=== PATIENT | female | born 1960 | race Caucasian/White ===

== ENCOUNTER → 2019-08-01 09:41 | Outpatient (BNVA) | payer MEDICARE, MEDICAID, SELFPAY | PROVIDERS: Family Provider Family Medicine; PCP Family Medicine; Visit Provider Nurse Practitioner | DX: G89.29 Other chronic pain (principal); M54.5 Low back pain; M79.604 Pain in right leg; M79.605 Pain in left leg; M62.838 Other muscle spasm; Z79.891 Long term (current) use of opiate analgesic | CPT/HCPCS: 99214 ==

== ENCOUNTER 2019-08-27 11:36 | Outpatient (CLI) | payer MEDICARE, MEDICAID, SELFPAY ==
[2019-08-27 13:19] LABS: Glucose 129 mg/dL (65-115)
[2019-08-28 14:27] LABS: C-Peptide 0.65 ng/mL (0.80-3.85)
== END 2019-08-27 11:37 | disposition home or self-care (01) ==
LOC: LAB 11:46
PROVIDERS: Family Provider Family Medicine; PCP Family Medicine; Visit Provider Nurse Practitioner Family
DX: E10.65 Type 1 diabetes mellitus with hyperglycemia (principal)
CPT/HCPCS: 36415; 82947; 84681

== ENCOUNTER → 2019-08-30 13:24 | Outpatient (BNVA) | payer MEDICARE, MEDICAID, SELFPAY | PROVIDERS: Family Provider Family Medicine; PCP Family Medicine; Visit Provider Family Medicine | DX: E78.2 Mixed hyperlipidemia (principal); E11.65 Type 2 diabetes mellitus with hyperglycemia; Z79.4 Long term (current) use of insulin; I10 Essential (primary) hypertension; E78.5 Hyperlipidemia, unspecified; F32.9 Major depressive disorder, single episode, unspecified; F41.9 Anxiety disorder, unspecified; M62.838 Other muscle spasm; J30.2 Other seasonal allergic rhinitis; G25.81 Restless legs syndrome; Z79.899 Other long term (current) drug therapy; E61.2 Magnesium deficiency; N39.0 Urinary tract infection, site not specified; R31.9 Hematuria, unspecified; F32.1 Major depressive disorder, single episode, moderate; R19.7 Diarrhea, unspecified; Z76.0 Encounter for issue of repeat prescription | CPT/HCPCS: 80053; 80061; 81001; 83036; 84443; 85025; 87077; 87086; 87186 ==

== ENCOUNTER → 2019-09-25 10:02 | Outpatient (BNVA) | payer MEDICARE, MEDICAID, SELFPAY | PROVIDERS: Family Provider Family Medicine; PCP Family Medicine; Visit Provider Anesthesiology | DX: G89.29 Other chronic pain (principal); M43.16 Spondylolisthesis, lumbar region; M79.651 Pain in right thigh; M79.652 Pain in left thigh; M62.838 Other muscle spasm; Z79.891 Long term (current) use of opiate analgesic | CPT/HCPCS: 99213 ==

== ENCOUNTER 2019-12-13 11:37 | Observation (INO) | payer MEDICARE, MEDICAID, SELFPAY ==
[2019-12-13] VITALS (11 sets, daily range): BP systolic 130–187; BP diastolic 74–98; PULSE 76–91; RESP 14–20; TEMP 36.7–36.9; O2SAT 94–97; BMI 65.5
--- NOTE | 2019-12-13 12:07 | ED_ITS ---
Documented by User: RAPHAEL Golden 12/13/19 16:04 HPI - Chest Pain General: Chief Complaint: Chest Pain Stated Complaint: CHEST PAIN Time Seen by Provider: 12/13/19 12:07 Source: patient Mode of arrival: ambulatory Limitations: no limitations History of Present Illness: HPI narrative: Patient presents today with complaints of chest pain for 3 days. Patient was being seen by her primary care and and had made complaints of chest pain. Patient was then transported to the emergency room for further evaluation. Patient had tried her nitro spray at home but it was ineffective. After receiving 1 nitro tablet at the medical office and 2 in route to the ER patient states that her pain is relatively gone. Patient describes it as 2 out of 10 on a pain scale. Patient reports that she has diabetes coronary artery disease with 6 previous stents. Patient states that she has to have CABG if she is going to have any further intervention with her heart disease. Patient appears well. Patient appears in no pain at rest. Review of Systems General: Reports: 10 or more systems reviewed and unremarkable except in HPI and below Card: Reports: chest pain [facility] ED PFSH: Medical History (Updated 12/13/19 @ 15:36 by RAPHAEL Golden) Chronic low back pain Long-term use of high-risk medication Opioid contract exists Surgical History History of partial surgical removal of colon Hx of total knee replacement S/P appendectomy S/P cholecystectomy S/P hysterectomy S/P tonsillectomy and adenoidectomy Family History Grandfather Cancer Family/Other Myocardial infarct MOTHER, FATHER, BROTHER, SISTER Hypertension Diabetes Mother CAD (coronary artery disease) Father CAD (coronary artery disease) Sister CAD (coronary artery disease) Brother CAD (coronary artery disease) Other Stroke Social History Smoking and tobacco status: never smoked Alcohol intake: never Lives independently: Yes Marital status: Physical Exam Const: COMMON NORMALS: no acute distress and patient oriented x3 GENERAL APPEARANCE: cooperative HENMT: COMMON NORMALS: normocephalic and Normal external nose present HEAD & SCALP: normal to inspection and normocephalic NOSE: Normal external nose present MOUTH: Normal oral and palatal mucosa present THROAT: posterior oropharynx normal Eye: GENERAL EYE: appearance normal, both eyes and all related structures Neck/C-Spine: COMMON NORMALS: full ROM Chest: COMMONS NORMALS: normal inspection of the chest Resp: COMMON NORMALS: normal respiratory effort EFFORT & INSPECTION: Yes able to speak in complete sentences Cardio: COMMON NORMALS: regular rate and regular rhythm RATE: regular rate RHYTHM: regular rhythm GI: COMMON NORMALS: non-tender Back/Pelvis: COMMON NORMALS: thoracic and lumbar spine normal to inspection Extremity: COMMON NORMALS: normal to inspection Neuro: COMMON NORMALS: patient oriented x3 and moves all extremities Psych: COMMON NORMALS: mental status grossly normal and cooperative Skin: COMMON NORMALS: no rashes or lesions noted GENERAL SKIN EXAM: no rashes or lesions noted Course ED course: 1350 reviewed first troponin level with patient and elevated d- dimer. Report that were going to go ahead and get the second troponin but while waiting for those results we are going to add a CT scan for PE protocol due to elevation in the d-dimer. Patient reports understanding. Patient pain-free. Wjw 1525, patient came back with bilateral abnormal filling defects in both lungs suggestive of a thrombo-embolism. Reviewed with Dr. Braun who agreed to evaluate the patient and discussed with the hospitalist further care. wjw Vital Signs: Vital signs: Vital Signs Temperature 98.5 F 12/13/19 11:59 Pulse Rate 81 12/13/19 16:18 Respiratory Rate 18 12/13/19 16:18 Blood Pressure 177/89 12/13/19 16:18 Pulse Oximetry 95 12/13/19 16:18 MDM - Chest Pain MDM Narrative: Medical decision making narrative: Patient came in today for complaints of chest pain for the last 3 days. Patient was seen in the medical clinic and then referred to the ER for further evaluation. By the time patient arrived to the ER she was almost pain-free and resting well. Exam noted lungs clear to auscultation. No significant swelling in lower extremities. Abdomen soft nontender. Heart rate was regular. Vital signs were normal except for some mild elevation in blood pressure. Differential diagnosis included ACS, PE, stable angina, muscle strain. CBC and CMP noted some mild elevation and the potassium and blood glucose. Patient is diabetic and maintains her diabetes with oral medications, and insulin. Patient does have a history of coronary artery disease. CT scan for PE due to elevated d-dimer noted bilateral filling defects. Troponin showed no change at 2-hour amrit. Dr. Braun was consulted for further evaluation and treatment of the pulmonary thromboembolism. Patient will need admission to the hospital for high risk of deterioration due to age and pre-existing conditions. She will need monitoring for management of anticoagulation and respiratory compromise. Lab Data: Labs: Lab Results 12/13/19 12/13/19 12/13/19 Range/Units 12:30 12:30 12:30 WBC 9.9 (4.0-10.0) 10^3/ uL RBC 5.04 (4.1-5.3) 10^6/u L Hgb 13.2 (11.5-15.3) g/dL Hct 43.2 (37.0-47.0) % MCV 85.7 (81-99) fL MCH 26.2 L (28.0-34.0) pg MCHC 30.6 (30.0-36.0) g/dL RDW 14.9 (12.1-15.1) % Plt Count 340 (130-400) 10^3/c mm MPV 9.8 (7.4-10.4) fL Neut % (Auto) 63.4 % Lymph % (Auto) 26.8 % Maury % (Auto) 5.3 % Eos % (Auto) 3.8 % Baso % (Auto) 0.4 % Neut # (Auto) 6.3 (1.8-7.7) 10^3/u L Lymph # (Auto) 2.6 (0.8-4.8) 10^3/u L Maury # (Auto) 0.5 (0.2-0.9) 10^3/u L Eos # (Auto) 0.4 (0.0-0.8) 10^3/u L Baso # (Auto) 0.0 (0.0-0.1) 10^3/u L Nucleated RBC % (a uto) 0 % Nucleated RBCs # 0.0 /100WBC PT (10.5-13.3) SECO NDS INR (0.8-1.2) APTT (23.9-36.7) SECO NDS D-Dimer 1.45 H (0-0.59) ug/mIFE U Sodium 139 (136-145) mmol/L Potassium 5.3 H (3.5-5.1) mmol/L Chloride 102 (98-107) mmol/L Carbon Dioxide 27 (22-29) mmol/L Anion Gap 15.3 (5-19) BUN 13 (6-20) mg/dL Creatinine 0.7 (0.5-0.9) mg/dL GFR Calculation 86.2 L (90-130) mL/min Glucose 380 H (65-115) mg/dL Calculated Osmolal ity 300 H (285-295) mOsm/k g Calcium 9.2 (8.5-10.5) mg/dL Total Bilirubin 0.2 (0.15-1.2) mg/dL AST 13 (0-32) U/L ALT 12 (0-33) U/L Alkaline Phosphata se 113 H (35-105) IU/L Troponin T Baselin e (0-10) ng/L Troponin T 120 Min [place] (0-10) ng/L Delta Troponin T (0-10) ABS# Total Protein 6.2 L (6.6-8.7) g/dL Albumin 3.5 (3.5-5.2) g/dL Globulin 2.7 (1.3-4.6) g/dL Lipase 15 (13-60) U/L 12/13/19 12/13/19 12/13/19 Range/Units 12:30 12:30 14:36 WBC (4.0-10.0) 10^3/ uL RBC (4.1-5.3) 10^6/u L Hgb (11.5-15.3) g/dL Hct (37.0-47.0) % MCV (81-99) fL MCH (28.0-34.0) pg MCHC (30.0-36.0) g/dL RDW (12.1-15.1) % Plt Count (130-400) 10^3/c mm MPV (7.4-10.4) fL Neut % (Auto) % Lymph % (Auto) % Maury % (Auto) % Eos % (Auto) % Baso % (Auto) % Neut # (Auto) (1.8-7.7) 10^3/u L Lymph # (Auto) (0.8-4.8) 10^3/u L Maury # (Auto) (0.2-0.9) 10^3/u L Eos # (Auto) (0.0-0.8) 10^3/u L Baso # (Auto) (0.0-0.1) 10^3/u L Nucleated RBC % (a uto) % Nucleated RBCs # /100WBC PT 13.10 (10.5-13.3) SECO NDS INR 0.96 (0.8-1.2) APTT 26.9 (23.9-36.7) SECO NDS D-Dimer (0-0.59) ug/mIFE U Sodium (136-145) mmol/L Potassium (3.5-5.1) mmol/L Chloride (98-107) mmol/L Carbon Dioxide (22-29) mmol/L Anion Gap (5-19) BUN (6-20) mg/dL Creatinine (0.5-0.9) mg/dL GFR Calculation (90-130) mL/min Glucose (65-115) mg/dL Calculated Osmolal ity (285-295) mOsm/k g Calcium (8.5-10.5) mg/dL Total Bilirubin (0.15-1.2) mg/dL AST (0-32) U/L ALT (0-33) U/L Alkaline Phosphata se (35-105) IU/L Troponin T Baselin e 11 H (0-10) ng/L Troponin T 120 Min [place] 10.95 H (0-10) ng/L Delta Troponin T -0.05 L (0-10) ABS# Total Protein (6.6-8.7) g/dL Albumin (3.5-5.2) g/dL Globulin (1.3-4.6) g/dL Lipase (13-60) U/L EKG Data^: EKG 1: Attestation: I personally reviewed and interpreted this EKG as follows: (1202, sinus rhythm at 92 bpm and regular, nonspecific T wave abnormality. Reviewed EKG from 02/02/2019 noting a sinus rhythm with a rate of 90 bpm that is similar to today's EKG, signifying no change. No ectopy was noted.) EKG 2: Attestation: I personally reviewed and interpreted this EKG as follows: (1432, no changes in EKG, continues to be sinus rhythm with a rate of 79 bpm, no ectopy, nonspecific T wave abnormality. No ST elevation.) Discharge Plan Discharge Patient Disposition: Admitted As Inpatient Admit Provider: Cooper Donnelly Clinical Impression: Pulmonary embolism, bilateral, Atypical chest pain Condition: Stable Referrals: Michelle Billy MD [Primary Care Provider] - Discharge Date/Time: 12/13/19 16:46 Coding Level of Care Code ED Wind Site Manager for Chg Fwd Exam Comprehensive Documented by User: Isha Braun MD 12/13/19 17:04 HPI - Chest Pain General: Chief Complaint: Chest Pain Stated Complaint: CHEST PAIN Time Seen by Provider: 12/13/19 12:07 PFSH ED PFSH: Medical History (Updated 12/13/19 @ 15:36 by RAPHAEL Golden) Chronic low back pain Long-term use of high-risk medication Opioid contract exists Surgical History History of partial surgical removal of colon Hx of total knee replacement S/P appendectomy S/P cholecystectomy S/P hysterectomy S/P tonsillectomy and adenoidectomy Family History Grandfather Cancer Family/Other Myocardial infarct MOTHER, FATHER, BROTHER, SISTER Hypertension Diabetes Mother CAD (coronary artery disease) Father CAD (coronary artery disease) Sister CAD (coronary artery disease) Brother CAD (coronary artery disease) Other Stroke Social History Smoking and tobacco status: never smoked Alcohol intake: never Lives independently: Yes Marital status: Course Reevaluation(s): Reevaluation #1: I am seeing Ms. Bridges with RAPHAEL Madsen. She is a 59-year-old female with history of type 1 diabetes. She is morbidly obese. She has history of cardiac disease and has been told that if she has another blockage will have to do a bypass surgery. She presents today with chest pain that is been off and on for the past day and a half. Somewhat exertional. She is also had shortness of breath. She is had swelling in both legs related to what she thought was fluid retention. She came in by ambulance from the [facility] and [facility]. Her chest pain resolved after the third nitroglycerin that the ambulance gave her. She said she has had a little bit of pain coming and going since then. She uses oxygen at night at home. She is very anxious and when Cale and myself went in the room and told her she had a blood clot she started to cry and ask if she was going to . We discussed that she could probably go home and be started on blood thinners and she again started to cry and said that she was afraid to go home because she was afraid she would . She does live by herself. She takes Brilinta and a baby aspirin. I will discuss her case with hospitalist and see if they are willing to observe her overnight. I think given her severe cardiac history is probably not unreasonable. Vital Signs: Vital signs: Vital Signs Temperature 98.5 F 12/13/19 11:59 Pulse Rate 81 12/13/19 16:18 Respiratory Rate 18 12/13/19 16:18 Blood Pressure 177/89 12/13/19 16:18 Pulse Oximetry 95 12/13/19 16:18 MDM - Chest Pain Lab Data: Labs: Lab Results 12/13/19 12/13/19 12/13/19 Range/Units 12:30 12:30 12:30 WBC 9.9 (4.0-10.0) 10^3/ uL RBC 5.04 (4.1-5.3) 10^6/u L Hgb 13.2 (11.5-15.3) g/dL Hct 43.2 (37.0-47.0) % MCV 85.7 (81-99) fL MCH 26.2 L (28.0-34.0) pg MCHC 30.6 (30.0-36.0) g/dL RDW 14.9 (12.1-15.1) % Plt Count 340 (130-400) 10^3/c mm MPV 9.8 (7.4-10.4) fL Neut % (Auto) 63.4 % Lymph % (Auto) 26.8 % Maury % (Auto) 5.3 % Eos % (Auto) 3.8 % Baso % (Auto) 0.4 % Neut # (Auto) 6.3 (1.8-7.7) 10^3/u L Lymph # (Auto) 2.6 (0.8-4.8) 10^3/u L Maury # (Auto) 0.5 (0.2-0.9) 10^3/u L Eos # (Auto) 0.4 (0.0-0.8) 10^3/u L Baso # (Auto) 0.0 (0.0-0.1) 10^3/u L Nucleated RBC % (a uto) 0 % Nucleated RBCs # 0.0 /100WBC PT (10.5-13.3) SECO NDS INR (0.8-1.2) APTT (23.9-36.7) SECO NDS D-Dimer 1.45 H (0-0.59) ug/mIFE U Sodium 139 (136-145) mmol/L Potassium 5.3 H (3.5-5.1) mmol/L Chloride 102 (98-107) mmol/L Carbon Dioxide 27 (22-29) mmol/L Anion Gap 15.3 (5-19) BUN 13 (6-20) mg/dL Creatinine 0.7 (0.5-0.9) mg/dL GFR Calculation 86.2 L (90-130) mL/min Glucose 380 H (65-115) mg/dL Calculated Osmolal ity 300 H (285-295) mOsm/k g Calcium 9.2 (8.5-10.5) mg/dL Total Bilirubin 0.2 (0.15-1.2) mg/dL AST 13 (0-32) U/L ALT 12 (0-33) U/L Alkaline Phosphata se 113 H (35-105) IU/L Troponin T Baselin e (0-10) ng/L Troponin T 120 Min [place] (0-10) ng/L Delta Troponin T (0-10) ABS# Total Protein 6.2 L (6.6-8.7) g/dL Albumin 3.5 (3.5-5.2) g/dL Globulin 2.7 (1.3-4.6) g/dL Lipase 15 (13-60) U/L 12/13/19 12/13/19 12/13/19 Range/Units 12:30 12:30 14:36 WBC (4.0-10.0) 10^3/ uL RBC (4.1-5.3) 10^6/u L Hgb (11.5-15.3) g/dL Hct (37.0-47.0) % MCV (81-99) fL MCH (28.0-34.0) pg MCHC (30.0-36.0) g/dL RDW (12.1-15.1) % Plt Count (130-400) 10^3/c mm MPV (7.4-10.4) fL Neut % (Auto) % Lymph % (Auto) % Maury % (Auto) % Eos % (Auto) % Baso % (Auto) % Neut # (Auto) (1.8-7.7) 10^3/u L Lymph # (Auto) (0.8-4.8) 10^3/u L Maury # (Auto) (0.2-0.9) 10^3/u L Eos # (Auto) (0.0-0.8) 10^3/u L Baso # (Auto) (0.0-0.1) 10^3/u L Nucleated RBC % (a uto) % Nucleated RBCs # /100WBC PT 13.10 (10.5-13.3) SECO NDS INR 0.96 (0.8-1.2) APTT 26.9 (23.9-36.7) SECO NDS D-Dimer (0-0.59) ug/mIFE U Sodium (136-145) mmol/L Potassium (3.5-5.1) mmol/L Chloride (98-107) mmol/L Carbon Dioxide (22-29) mmol/L Anion Gap (5-19) BUN (6-20) mg/dL Creatinine (0.5-0.9) mg/dL GFR Calculation (90-130) mL/min Glucose (65-115) mg/dL Calculated Osmolal ity (285-295) mOsm/k g Calcium (8.5-10.5) mg/dL Total Bilirubin (0.15-1.2) mg/dL AST (0-32) U/L ALT (0-33) U/L Alkaline Phosphata se (35-105) IU/L Troponin T Baselin e 11 H (0-10) ng/L Troponin T 120 Min [place] 10.95 H (0-10) ng/L Delta Troponin T -0.05 L (0-10) ABS# Total Protein (6.6-8.7) g/dL Albumin (3.5-5.2) g/dL Globulin (1.3-4.6) g/dL Lipase (13-60) U/L Discharge Plan Discharge Patient Disposition: Admitted As Inpatient Admit Provider: Cooper Donnelly Clinical Impression: Pulmonary embolism, bilateral, Atypical chest pain Condition: Stable Referrals: Michelle Billy MD [Primary Care Provider] - Discharge Date/Time: 12/13/19 16:46 Coding Level of Care Code ED Wind Site Manager for Chg Fwd Exam Comprehensive
--- NOTE | 2019-12-13 12:08 | ECG_ITS ---
Measurements Intervals [place] Rate: 92 P: 48 RI: 156 QRS: 25 QRSD: 80 T: 96 QT: 367 QTc: 454 SINUS RHYTHM NONSPECIFIC T-WAVE ABNORMALITY Compared to ECG 02/02/2019 20:43:34 T-wave abnormality now present Myocardial infarct finding no longer present Electronically Signed On 12-13-2019 17:58:00 CDT by Rosey Phelps M.D. [email or web address] f
--- NOTE | 2019-12-13 12:08 | XR_ITS ---
WS: [id number] PORTABLE CHEST HISTORY: cp COMPARISON: 02/02/2019, 07/25/2018 Granuloma posterior to the LEFT heart. Otherwise lungs are clear. No pneumonia. No pleural effusion o r pneumothorax. Cardiac size: Normal. Mediastinum/Aorta: Normal mediastinum. No osseous abnormality seen. XR/XR chest 1V portable [id number] IMPRESSION: Unremarkable portable chest.
[2019-12-13 12:53] LABS: Basophils % 0.4 %; Eosinophils # 0.4 10^3/uL (0.0-0.8); Eosinophils % 3.8 %; Hematocrit 43.2 % (37.0-47.0); Hemoglobin 13.2 g/dL (11.5-15.3); Lymphocytes # 2.6 10^3/uL (0.8-4.8); Lymphocytes % 26.8 %; Mean Corpuscular HGB Conc 30.6 g/dL (30.0-36.0); Mean Corpuscular Hemoglobin 26.2 pg (28.0-34.0); Mean Corpuscular Volume 85.7 fL (81-99); Mean Platelet Volume 9.8 fL (7.4-10.4); Monocytes # 0.5 10^3/uL (0.2-0.9); Monocytes % 5.3 %; Neutrophils # 6.3 10^3/uL (1.8-7.7); Neutrophils % 63.4 %; Nucleated Red Blood Cells % 0 %; Platelet Count 340 10^3/cmm (130-400); Red Blood Count 5.04 10^6/uL (4.1-5.3); Red Cell Distribution Width 14.9 % (12.1-15.1); White Blood Count 9.9 10^3/uL (4.0-10.0)
[2019-12-13 12:57] LABS: Alanine Aminotransferase 12 U/L (0-33); Albumin Level 3.5 g/dL (3.5-5.2); Alkaline Phosphatase 113 IU/L (35-105); Anion Gap 15.3 (5-19); Aspartate Amino Transferase 13 U/L (0-32); Blood Urea Nitrogen 13 mg/dL (6-20); Calcium 9.2 mg/dL (8.5-10.5); Carbon Dioxide 27 mmol/L (22-29); Chloride 102 mmol/L (98-107); Globulin 2.7 g/dL (1.3-4.6); Glomerular Filtration Rate 86.2 mL/min (90-130); Glucose 380 mg/dL (65-115); Lipase 15 U/L (13-60); Osmolality Calculated 300 mOsm/kg (285-295); Potassium 5.3 mmol/L (3.5-5.1); Sodium 139 mmol/L (136-145); Total Bilirubin 0.2 mg/dL (0.15-1.2); Total Protein 6.2 g/dL (6.6-8.7)
[2019-12-13 12:59] LABS: Troponin(5th) Baseline 11 ng/L (0-10)
[2019-12-13 13:58] LABS: D Dimer 1.45 ug/mIFEU (0-0.59)
--- NOTE | 2019-12-13 14:08 | ECG_ITS ---
Measurements Intervals [place] Rate: 79 P: 44 CA: 146 QRS: 17 QRSD: 81 T: 87 QT: 394 QTc: 453 SINUS RHYTHM NONSPECIFIC T-WAVE ABNORMALITY Compared to ECG 02/02/2019 20:43:34 T-wave abnormality now present Myocardial infarct finding no longer present Electronically Signed On 12-13-2019 18:02:44 CDT by Rosey Phelps M.D. [id number] f
--- NOTE | 2019-12-13 14:11 | CT_ITS ---
WS: [id number] CT angio chest PE protcl [id number] REASON FOR EXAM: chest pain, elevated d dimer TECHNIQUE: Coronal and sagittal 2-D and MIP reformations. IV CONTRAST ADMINISTERED: Omnipaque 350 95 mL bolus injection TOTAL EXAM DLP: 855.[address] scans at [facility] use at least one of these dose optimization techniques: automat ed exposure control; mA and/or kV adjustment per patient size (includes targeted exams where dose is matched to clinical indication); or iterative reconstruction. FINDINGS: After the bolus injection of contrast the pulmonary vasculature showed multilevel filling d efects consistent with thromboembolic changes. There is decreased perfusion also seen in the lower jermain ng [place] on the right. The mediastinum appear to be normal no aneurysmal changes of the aorta were seen in the heart chamber s were normal. The hilum was were normal. No pneumonia seen in either lung [place]. The liver showed no infiltrating changes. Adrenal glands were normal bilaterally. CT/CT angio chest PE protcl [id number] IMPRESSION: Bilateral filling defects in the pulmonary vasculature consistent with thromboe mbolic changes high probability of pulmonary embolus.
[2019-12-13 14:56] LABS: Troponin 5 2HR 10.95 ng/L (0-10)
[2019-12-13 15:00] LABS: Troponin 5 2HR Delta -0.05 ABS# (0-10)
[2019-12-13] MEDS: iohexol 350 mg/mL 100 mL Btl IV (15:07)
[2019-12-13 16:11] LABS: INR 0.96 (0.8-1.2)
[2019-12-13 16:12] LABS: Partial Thromboplastin Time 26.9 SECONDS (23.9-36.7)
[2019-12-13] MEDS: enoxaparin 120 mg/0.8 mL Syringe SUBCUT (16:20)
--- NOTE | 2019-12-13 17:24 | P.HP_ITS ---
Providers/Chief Complaint Admitting Physician: Cooper Donnelly Primary Care Provider: Michelle Billy MD Chief Complaint: CHEST PAIN History of Present Illness Watson Bridges is a 59 year old pleasant lady with past medical history of coronary disease, she reports 5-6 stents placed in the past, last one about 5-6 years ago, reports history also of mild stroke in the past, as well as HTN, DM 2, recurrent UTI, GERD, RLS, BETH, nightly on 1 L oxygen and other medical conditions, was referred to emergency department today from primary care provider's office after complaining there of 3 days worth of episodes of chest pain and dyspnea. Describes associated with heaviness, not in particular location. This morning going into left arm and jaw the night before. In ER she was assessed for possible acute OR given history of coronary disease, low at the same time d-dimer was found abnormal, and on CTA noted to have bilateral PE. Observation is requested given her medical history, for initiation of anticoagulation, and changes to antiplatelet agents. She reports that she has recently moved to the area, and has not seen a associate agent insurance sales here yet, although is familiar with Dr. Quarles. Review of Systems Const: Denies: fever(s), chills, body aches or malaise Eyes: Denies: change in vision or eye redness ENMT: Denies: throat pain, oral sores or ear or mastoid pain Card: Reports: chest pain and dyspnea on exertion; Denies: edema or pre-syncope Resp: Reports: dyspnea and non-productive cough; Denies: productive cough, change in phlegm color or hemoptysis GI: Denies: abdominal pain, nausea, vomiting, diarrhea, constipation, hematochezia or melena : Denies: flank pain, urinary frequency or hematuria Musc: Denies: back pain, joint swelling or joint redness Skin/Breast: Denies: rash, sores or new lesions Neuro: Denies: headache(s), numbness in extremities, weakness in extremities, dizziness, confusion or seizure-like activity Endo: Denies: polyuria or polydipsia Soham/Lymph: Denies: easy bleeding or purpura All/Imm: Denies: urticaria, throat swelling or tongue swelling Medications/Allergies Home Medications Medication Instructions Recorded Confirmed Last Taken Type aspirin 81 mg chewable tablet 81 mg PO DAILY 07/31/19 12/13/19 Unknown History nitroglycerin 400 mcg/spray 1 spray SUBLINGUAL Q5M PRN 07/31/19 12/13/19 12/13/19 History translingual amlodipine 5 mg tablet 5 mg PO QDAY #30 tab 08/30/19 12/13/19 12/13/19 Rx bupropion HCl 200 mg tablet,12 hr 200 mg PO Q12H #60 tab 08/30/19 12/13/19 12/13/19 Rx sustained-release buspirone 7.5 mg tablet 7.5 mg PO BID #60 tab 08/30/19 12/13/19 12/13/19 Rx fluticasone propionate 50 2 inh INHALATION Q12H #60 each 08/30/19 12/13/19 Unknown Rx mcg/actuation blister powder for inhalation furosemide 20 mg tablet 10 mg PO QAM #30 tab 08/30/19 12/13/19 12/13/19 Rx isosorbide mononitrate 30 mg 30 mg PO QAM #30 tab 08/30/19 12/13/19 12/13/19 Rx tablet,extended release 24 hr metoprolol tartrate 50 mg tablet 50 mg PO BID #60 tab 08/30/19 12/13/19 12/13/19 Rx ticagrelor 60 mg tablet 60 mg PO BID #60 tab 08/30/19 12/13/19 12/13/19 Rx cyclobenzaprine 10 mg tablet 10 mg PO TID PRN 30 Days #90 tab 09/25/19 12/13/19 12/13/19 Rx insulin aspart U-100 100 unit/mL See Rx Instructions SUBCUT DAILY 10/18/19 12/13/19 12/13/19 Rx subcutaneous solution #30 ml empagliflozin 25 mg tablet 25 mg PO DAILY #30 tab 11/08/19 12/13/19 12/13/19 Rx fluconazole 150 mg tablet 150 mg PO DAILY #3 tab 11/08/19 12/13/19 12/12/19 Rx hydrocodone 10 mg-acetaminophen 1 tab PO .6 TIMES DAY PRN 30 Days 11/12/19 12/13/19 12/13/19 Rx 325 mg tablet #180 tab famotidine 40 mg tablet 40 mg PO BID #60 tab 11/18/19 12/13/19 12/13/19 Rx metformin 1,000 mg tablet,extended 1,000 mg PO BID #60 tab 11/18/19 12/13/19 12/13/19 Rx release 24hr Nitrostat 0.4 mg SUBLINGUAL ONCE #1 tab NS 12/13/19 Unknown Rx Requip 0.25 mg PO BEDTIME 12/13/19 12/13/19 12/12/19 History atorvastatin 40 mg PO DAILY 12/13/19 12/13/19 12/12/19 History evolocumab [Repatha SureClick] 140 mg SUBCUT Q14D 12/13/19 12/13/19 Unknown History lisinopril 20 mg PO DAILY 12/13/19 12/13/19 12/13/19 History magnesium oxide 400 mg PO DAILY 12/13/19 12/13/19 12/13/19 History Allergies Allergy/AdvReac Type Severity Reaction Status Date / Time citalopram Allergy effects Verified 12/13/19 10:00 speach and memory ibuprofen Allergy RASH/ Verified 12/13/19 10:00 SWELLING morphine Allergy ITCHING Verified 12/13/19 10:00 famotidine AdvReac Mild itching Verified 12/13/19 17:32 esomeprazole [From Nexium] AdvReac Unknown Verified 12/13/19 10:00 PFSH Acute PFSH: Medical History Bilateral lower extremity edema CAD (coronary artery disease) Chronic low back pain Constipation CVA (cerebral vascular accident) DM type 2 (diabetes mellitus, type 2) GERD (gastroesophageal reflux disease) HTN (hypertension) Long-term use of high-risk medication Migraine headache Morbid obesity Opioid contract exists BETH (obstructive sleep apnea) Osteoporosis RLS (restless legs syndrome) Surgical History History of partial surgical removal of colon Hx of total knee replacement S/P appendectomy S/P cholecystectomy S/P hysterectomy S/P tonsillectomy and adenoidectomy Family History Grandfather Cancer Family/Other Myocardial infarct MOTHER, FATHER, BROTHER, SISTER Hypertension Diabetes Mother CAD (coronary artery disease) Father CAD (coronary artery disease) Sister CAD (coronary artery disease) Brother CAD (coronary artery disease) Other Stroke Social History Smoking and tobacco status: never smoked Alcohol intake: never Lives independently: Yes Marital status: Current occupational status: unemployed Vitals/I&O/Wt Last Vital Signs Temp 98.5 F 12/13/19 11:59 Pulse 81 12/13/19 16:18 Resp 18 12/13/19 16:18 BP 177/89 12/13/19 16:18 Pulse Ox 95 12/13/19 16:18 Weight last 48 hrs Weight 167.829 kg Physical Exam Const: COMMON NORMALS: no acute distress and patient oriented x3 NUTRITIONAL APPEARANCE: obese morbidly obese HENMT: COMMON NORMALS: oropharynx normal Neck/C-Spine: COMMON NORMALS: no JVD Resp: COMMON NORMALS: normal respiratory effort and clear to auscultation bilaterally AUSCULTATION: clear to auscultation bilaterally Cardio: COMMON NORMALS: no JVD, regular rhythm, S1 normal heart sound present, S2 normal heart sound present and No murmurs present (Cardio) RHYTHM: regular rhythm HEART SOUNDS: S1 normal heart sound present and S2 normal heart sound present GI: COMMON NORMALS: Normal to inspection, nondistended, normoactive bowel soun ds present, Soft to palpation and non-tender PALPATION: Yes Soft to palpation Extremity: COMMON NORMALS: no joint enlargement and no pedal edema Neuro: COMMON NORMALS: patient oriented x3 and moves all extremities Skin: COMMON NORMALS: no rashes or lesions noted GENERAL SKIN EXAM: no rashes or lesions noted Data : 12/13/19 12:30 12/13/19 12:30 A&P Assessment and plan (1) Pulmonary embolism, bilateral: Presenting with atypical chest pain, several days duration, dyspnea. With noted filling defects bilaterally on CTA with high suspicion for PE. Received a dose of Lovenox. Discussed with her regarding transition to oral anticoagulants, we discussed regarding warfarin, versus DOACs, risk of bleeding, need for monitoring, availability of reversal agents. She would like to proceed with a DOAC agent starting tomorrow. Monitor vaccination at this time. She is not hypotensive. Does not appear to have a good trigger. Follow-up with PCP for consideration of additional assessments. Status: Acute (2) CAD (coronary artery disease): At this time chest pain does not appear to be related to acute OR. Complete troponin series. She is on dual antiplatelet agents. With initiation of anticoagulation would be elevated risk of bleeding. Discussed with her, rectal discussed with Dr. Quarles whom she will then see in office. She states has been familiar with him and has been needing to establish with a associate agent insurance sales in the area. At this time aspirin will be discontinued. Brilinta will be switched to Plavix. Holding dose tonight, maintenance starting tomorrow. Status: Acute (3) Hyperkalemia: Mild hyperkalemia, potassium 5.3. At this time hold FLAVIA inhibitor. Status: Acute (4) Alkaline phosphatase elevation: Isolated. Other liver parameters are normal. Will check GGT. She is status post cholecystectomy. Mild elevation, would follow-up outpatient. Status: Acute (5) DM type 2 (diabetes mellitus, type 2): With hyperglycemia. Consistent carbohydrate diet. For now sliding scale insulin. Pump is being arranged. Status: Chronic (6) HTN (hypertension): Appears poorly controlled hypertension. Hold lisinopril for now due to hyperkalemia. Monitor blood pressure. May be secondary to pain, dyspnea with PE. If not improving may need escalation of therapy. Status: Chronic (7) GERD (gastroesophageal reflux disease): She says gets itching with famotidine. Takes Tums at home. Status: Chronic (8) BETH (obstructive sleep apnea): Says that she is supposed to wear CPAP, but has not been wearing it. Uses 1 L by nasal cannula oxygen nightly. Status: Chronic (9) RLS (restless legs syndrome): Continue home medicine Status: Chronic (10) Morbid obesity: Would benefit from discussing weight loss options in PCP follow-up. Status: Chronic (11) Atypical chest pain: Concern worse for cardiac ischemia, however, does not appear to be so. Complete EKG and troponin series. Findings on CT suspicious for bilateral PE. Management as above. Intermittently describes a upper abdominal hernia, perhaps incisional has had multiple abdominal surgeries, sometimes says his abdomen swells up. Denies any recent/changes. No changes in bowel movement patterns. Status: Acute (12) Chronic low back pain: Status: Chronic Attestations Medical Necessity Statement*: Place in observation. Coding Level of Care Code Acute Butt Trimmer for Chg Fwd Diagnoses Pulmonary embolism, bilateral I26.99 CAD (coronary artery disease) I25.10 Hyperkalemia E87.5 Alkaline phosphatase elevation R74.8 DM type 2 (diabetes mellitus, type 2) E11.9 HTN (hypertension) I10 GERD (gastroesophageal reflux disease) K21.9 BETH (obstructive sleep apnea) G47.33 RLS (restless legs syndrome) G25.81 Morbid obesity E66.01 Atypical chest pain R07.89 Chronic low back pain M54.5; G89.29
--- NOTE | 2019-12-13 18:08 | ECG_ITS ---
Measurements Intervals [place] Rate: 85 P: 45 MT: 149 QRS: 16 QRSD: 81 T: 63 QT: 395 QTc: 472 SINUS RHYTHM NONSPECIFIC T-WAVE ABNORMALITY WARNING: DATA QUALITY MAY AFFECT INTERPRETATION Compared to ECG 12/13/2019 14:32:54 No significant changes Electronically Signed On 12-13-2019 18:04:52 CDT by Rosey Phelps M.D. [email or web address]
[2019-12-13 19:11] LABS: Troponin 5 6HR 11.06 ng/L (0-10); Troponin 5 6HR Delta 0.06 ng/L (0-12)
[2019-12-13] MEDS: buPROPion SR (12 HR) 100 mg Tablet 200 MG PO (19:19)
[2019-12-13] MEDS: BuSPIRONE 5 mg Tablet 7.5 MG PO (19:20)
[2019-12-13] MEDS: metoprolol tartrate 50 mg Tablet PO (19:20)
[2019-12-13] MEDS: clopidogrel 300 mg Tablet PO (19:21)
[2019-12-13 20:18] LABS: Glucose Point of Care 338 mg/dL (70-110)
[2019-12-13] MEDS: fluticasone nasal spray 16gm Btl 2 SPRAY INTRANASAL (20:18)
[2019-12-13] MEDS: ropinirole 0.25 mg Tablet PO (20:19)
[2019-12-13] MEDS: albuterol 8 gm MDI 2 PUFF INHALATION (20:35)
[2019-12-13 20:59] LABS: Gamma Glutamyl Transferase 26 U/L (5-36)
[2019-12-14] VITALS (10 sets, daily range): BP systolic 109–186; BP diastolic 66–93; PULSE 68–86; RESP 16–18; TEMP 36.4–36.9; O2SAT 93–98
[2019-12-14 05:45] LABS: Basophils # 0.1 10^3/uL (0.0-0.1); Basophils % 0.7 %; Eosinophils # 0.5 10^3/uL (0.0-0.8); Eosinophils % 5.5 %; Hematocrit 42.8 % (37.0-47.0); Hemoglobin 13.3 g/dL (11.5-15.3); Lymphocytes % 32.1 %; Mean Corpuscular HGB Conc 31.1 g/dL (30.0-36.0); Mean Corpuscular Hemoglobin 26.6 pg (28.0-34.0); Mean Corpuscular Volume 85.6 fL (81-99); Mean Platelet Volume 9.9 fL (7.4-10.4); Monocytes # 0.6 10^3/uL (0.2-0.9); Monocytes % 6.1 %; Neutrophils # 5.1 10^3/uL (1.8-7.7); Neutrophils % 55.3 %; Nucleated Red Blood Cells % 0 %; Platelet Count 336 10^3/cmm (130-400); White Blood Count 9.2 10^3/uL (4.0-10.0)
[2019-12-14 06:03] LABS: Alanine Aminotransferase 11 U/L (0-33); Albumin Level 3.2 g/dL (3.5-5.2); Alkaline Phosphatase 108 IU/L (35-105); Anion Gap 14.5 (5-19); Aspartate Amino Transferase 12 U/L (0-32); Blood Urea Nitrogen 12 mg/dL (6-20); Calcium 8.6 mg/dL (8.5-10.5); Carbon Dioxide 27 mmol/L (22-29); Chloride 101 mmol/L (98-107); Globulin 3.3 g/dL (1.3-4.6); Glomerular Filtration Rate 86.2 mL/min (90-130); Glucose 308 mg/dL (65-115); Osmolality Calculated 294 mOsm/kg (285-295); Potassium 4.5 mmol/L (3.5-5.1); Sodium 138 mmol/L (136-145); Total Bilirubin 0.3 mg/dL (0.15-1.2); Total Protein 6.5 g/dL (6.6-8.7)
[2019-12-14 06:56] LABS: Glucose Point of Care 310 mg/dL (70-110)
[2019-12-14] MEDS: isosorbide mononitrate ER 30 mg Tablet PO (08:12)
[2019-12-14] MEDS: apixaban 5 mg Tablet 10 MG PO ×2 (08:13→16:21)
[2019-12-14] MEDS: fluticasone nasal spray 16gm Btl 2 SPRAY INTRANASAL (09:07)
[2019-12-14] MEDS: amlodipine 5 mg Tablet PO (09:08)
[2019-12-14] MEDS: BuSPIRONE 5 mg Tablet 7.5 MG PO (09:08)
[2019-12-14] MEDS: fluconazole 100 mg Tablet 150 MG PO (09:08)
[2019-12-14] MEDS: magnesium oxide 400 mg tablet PO (09:08)
[2019-12-14] MEDS: atorvastatin 40 mg Tablet PO (09:09)
[2019-12-14] MEDS: clopidogrel 75 mg Tablet PO (09:09)
[2019-12-14] MEDS: buPROPion SR (12 HR) 100 mg Tablet 200 MG PO (09:09)
[2019-12-14] MEDS: metoprolol tartrate 50 mg Tablet PO (09:09)
[2019-12-14 11:16] LABS: Glucose Point of Care 224 mg/dL (70-110)
--- NOTE | 2019-12-14 14:33 | PM.DCS ---
Discharge Providers Date of Admission: 12/13/19 16:00 Date of Discharge: December 14, 2019 Attending Provider at Admission: Cooper Donnelly Attending Provider at Discharge: Cooper Donnelly Primary Care Provider: Michelle Billy MD Diagnoses at Discharge Discharge Diagnosis (1) Pulmonary embolism, bilateral: Status: Acute (2) CAD (coronary artery disease): Status: Acute (3) Hyperkalemia: Status: Acute (4) Alkaline phosphatase elevation: Status: Acute Problem details: Isolated. Other liver parameters are normal. Will check GGT. She is status post cholecystectomy. Mild elevation, would follow-up outpatient. (5) DM type 2 (diabetes mellitus, type 2): Status: Chronic (6) HTN (hypertension): Status: Chronic (7) GERD (gastroesophageal reflux disease): Status: Chronic (8) BETH (obstructive sleep apnea): Status: Chronic (9) RLS (restless legs syndrome): Status: Chronic (10) Morbid obesity: Status: Chronic (11) Atypical chest pain: Status: Acute (12) Chronic low back pain: Status: Chronic Reason for Visit Reason for Visit: CHEST PAIN Hospital Course Hospital Course: Pleasant 59-year-old lady with history of coronary disease and other medical problems was observed in hospital after presenting with several days of chest pain episodes, dyspnea. She was assessed and not found to have acute [place]. Due to abnormal d-dimer assessed with CT angiogram of the chest with finding of bilateral filling defect suggestive of bilateral PE. No easily identifiable trigger can be found. She was initiated on anticoagulation which she tolerated well, and was switched over to Eliquis to continue. Please revisit in the office, follow-up blood counts, tolerance of medication, oxygenation, and discuss assessment for possible clotting disorder given blood clots appear to run in her family. Discussed duration of anticoagulation, although without easily identifiable trigger consideration may need to be given to lifelong therapy. Due to coronary disease and concomitant antiplatelet use, aspirin was discontinued on discussion with cardiology, and Brilinta was switched to Plavix. She will follow-up with cardiology in office. She has been feeling well, has had stable blood pressure, no syncopal episodes, and feels ready to return home. Isolated alkaline phosphatase was noted in the hospital. Please follow-up on outpatient basis. With noted mild hyperkalemia, FLAVIA inhibitor for now is held. Please follow-up. Physical Exam Const: COMMON NORMALS: no acute distress and patient oriented x3 NUTRITIONAL APPEARANCE: obese morbidly obese HENMT: COMMON NORMALS: oropharynx normal Neck/C-Spine: COMMON NORMALS: no JVD Resp: COMMON NORMALS: normal respiratory effort and clear to auscultation bilaterally AUSCULTATION: clear to auscultation bilaterally Cardio: COMMON NORMALS: no JVD, regular rhythm, S1 normal heart sound present, S2 normal heart sound present and No murmurs present (Cardio) RHYTHM: regular rhythm HEART SOUNDS: S1 normal heart sound present and S2 normal heart sound present GI: COMMON NORMALS: Normal to inspection, nondistended, normoactive bowel sounds present, Soft to palpation and non-tender PALPATION: Yes Soft to palpation Extremity: COMMON NORMALS: no joint enlargement and no pedal edema Neuro: COMMON NORMALS: patient oriented x3 and moves all extremities Skin: COMMON NORMALS: no rashes or lesions noted GENERAL SKIN EXAM: no rashes or lesions noted Discharge Data Data Completed and Pending: Completed Studies During Hospitalization Category Date Time Status CT angio chest PE protcl [id number] Urge nt Cat Scan 12/13/19 14:11 Completed XR chest 1[place] [id number] Stat Exams 12/13/19 12:08 Completed Pending at discharge Category Date Time Status Complete Blood Co unt w/Auto AM LABS Lab 12/15/19 04:00 Ordered Complete Blood Co unt w/Auto AM LABS Lab 12/16/19 04:00 Ordered Comprehensive Met abolic Panel AM LA BS Lab 12/15/19 04:00 Ordered Comprehensive Met abolic Panel AM LA BS Lab 12/16/19 04:00 Ordered Labs from last 24 hours 12/14/19 12/14/19 12/14/19 11:05 06:47 05:10 WBC RBC Hgb Hct MCV MCH MCHC RDW Plt Count MPV Neut % (Auto) Lymph % (Auto) [place] % (Auto) Eos % (Auto) Baso % (Auto) Neut # (Auto) Lymph # (Auto) [place] # (Auto) Eos # (Auto) Baso # (Auto) Nucleated RBC % (a uto) Nucleated RBCs # PT INR APTT Sodium 138 Potassium 4.5 Chloride 101 Carbon Dioxide 27 Anion Gap 14.5 BUN 12 Creatinine 0.7 GFR Calculation 86.2 L Glucose 308 H POC Glucose 224 310 Calculated Osmolal ity 294 Calcium 8.6 Total Bilirubin 0.3 GGT AST 12 ALT 11 Alkaline Phosphata se 108 H Troponin I 6 Hour Troponin I Hi Sens Del Troponin T 120 Min [place] Delta Troponin T Total Protein 6.5 L Albumin 3.2 L Globulin 3.3 12/14/19 12/13/19 12/13/19 05:10 20:05 18:19 WBC 9.2 RBC 5.00 Hgb 13.3 Hct 42.8 MCV 85.6 MCH 26.6 L MCHC 31.1 RDW 15.0 Plt Count 336 MPV 9.9 Neut % (Auto) 55.3 Lymph % (Auto) 32.1 [place] % (Auto) 6.1 Eos % (Auto) 5.5 Baso % (Auto) 0.7 Neut # (Auto) 5.1 Lymph # (Auto) 3.0 [place] # (Auto) 0.6 Eos # (Auto) 0.5 Baso # (Auto) 0.1 Nucleated RBC % (a uto) 0 Nucleated RBCs # 0.0 PT INR APTT Sodium Potassium Chloride Carbon Dioxide Anion Gap BUN Creatinine GFR Calculation Glucose POC Glucose 338 Calculated Osmolal ity Calcium Total Bilirubin GGT 26 AST ALT Alkaline Phosphata se Troponin I 6 Hour Troponin I Hi Sens Del Troponin T 120 Min [place] Delta Troponin T Total Protein Albumin Globulin 12/13/19 12/13/19 12/13/19 18:19 14:36 12:30 WBC RBC Hgb Hct MCV MCH MCHC RDW Plt Count MPV Neut % (Auto) Lymph % (Auto) [place] % (Auto) Eos % (Auto) Baso % (Auto) Neut # (Auto) Lymph # (Auto) [place] # (Auto) Eos # (Auto) Baso # (Auto) Nucleated RBC % (a uto) Nucleated RBCs # PT 13.10 INR 0.96 APTT 26.9 Sodium Potassium Chloride Carbon Dioxide Anion Gap BUN Creatinine GFR Calculation Glucose POC Glucose Calculated Osmolal ity Calcium Total Bilirubin GGT AST ALT Alkaline Phosphata se Troponin I 6 Hour 11.06 H Troponin I Hi Sens Del 0.06 Troponin T 120 Min [place] 10.95 H Delta Troponin T -0.05 L Total Protein Albumin Globulin Vitals: Last Vital Signs Temp 98.1 F 12/14/19 11:23 Pulse 68 12/14/19 11:23 Resp 18 12/14/19 11:23 BP 144/74 12/14/19 11:23 Pulse Ox 93 12/14/19 11:23 Discharge Plan Discharge Patient Disposition: Home, Self-Care Condition: Stable Prescriptions: New apixaban 5 mg (74 tabs) tablets,dose pack See Rx Instructions .ROUTE .COMPLEX Qty: 74 RF: 0 clopidogrel 75 mg Tablet 75 mg PO DAILY Qty: 30 RF: 0 Continued cyclobenzaprine 10 mg tablet 10 mg PO TID PRN (Reason: muscle spasm) 30 Days Qty: 90 RF: 0 hydrocodone-acetaminophen 10-325 mg tablet 1 tab PO .6 TIMES DAY PRN (Reason: pain) 30 Days Qty: 180 RF: 0 Jardiance 25 mg tablet 25 mg PO DAILY Qty: 30 RF: 2 fluconazole [Diflucan] 150 mg tablet 150 mg PO DAILY Qty: 3 RF: 1 amlodipine 5 mg tablet 5 mg PO QDAY Qty: 30 RF: 5 bupropion HCl [Wellbutrin SR] 200 mg tablet sustained-release 12 hr 200 mg PO Q12H Qty: 60 RF: 5 buspirone 7.5 mg tablet 7.5 mg PO BID Qty: 60 RF: 5 fluticasone propionate 50 mcg/actuation blister with device 2 inh INHALATION Q12H Qty: 60 RF: 5 furosemide 20 mg tablet 10 mg PO QAM Qty: 30 RF: 5 isosorbide mononitrate 30 mg tablet extended release 24 hr 30 mg PO QAM Qty: 30 RF: 5 metoprolol tartrate 50 mg tablet 50 mg PO BID Qty: 60 RF: 5 metformin 1,000 mg tablet extended release 24hr 1,000 mg PO BID Qty: 60 RF: 2 famotidine [Pepcid] 40 mg tablet 40 mg PO BID Qty: 60 RF: 1 insulin aspart U-100 [Novolog U-100 Insulin aspart] 100 unit/mL solution See Rx Instructions SUBCUT DAILY Qty: 30 RF: 2 Nitrostat 0.4 mg tablet, sublingual 0.4 mg SUBLINGUAL ONCE Qty: 1 RF: 0 atorvastatin 40 mg tablet 40 mg PO DAILY RF: 0 Requip 0.25 mg tablet 0.25 mg PO BEDTIME RF: 0 Repatha SureClick 140 mg/mL pen injector 140 mg SUBCUT Q14D RF: 0 magnesium oxide 400 mg magnesium tablet 400 mg PO DAILY RF: 0 Changed Nitrolingual 400 mcg/spray spray,non-aerosol 1 spray SUBLINGUAL Q5M Qty: 1 RF: 0 Held lisinopril 20 mg tablet 20 mg PO DAILY RF: 0 Hold Instructions: Resume on 12/28/19. Discontinued aspirin 81 mg tablet,chewable 81 mg PO DAILY RF: 0 Brilinta 60 mg tablet 60 mg PO BID Qty: 60 RF: 4 Discharge Orders: Discharge Order (Routine); Ordered 12/14/19 Ordered By: Cooper Donnelly Referrals: Renay Quarles MD [Physician] - 1 month (Please call Monday to make an appointment. Establish care. CAD, anticoagulation.) Michelle Billy MD [Primary Care Provider] - 4-7 days (Please call Monday to make an appointment. PE, establish care, chronic problems) Discharge Diet: Cardiac and Diabetic Discharge Activity: Increase activity as tolerated and Oxygen as instructed Patient Instructions: Clopidogrel (By mouth), Apixaban (By mouth), Chest Pain (DC), Pulmonary Embolism (DC), Chest Pain Stoplight Activity Restrictions/Additional Instructions: Continue oxygen at night 1 L as previously, as well as if found needing oxygen on ambulation prior to discharge with exertion, continue as instructed. Target saturation 92%. If you experience progressive chest pain, worsening shortness of breath, low oxygen level, low blood pressure, or other abnormal symptoms, please seek medical attention without delay. Please discuss with your primary care provider regarding testing for a clotting disorder, possibly running in the family, after you have recovered from acute episode of illness. Discharge Date/Time: 12/14/19 17:35 Discharge Attestations Time Spent in Discharge Care*: greater than 30 min Quality Metrics Clinical Quality Measures During this hospital stay, did patient experience: None Coding Level of Care Code Acute Water Pump Assembler for g Fwd Exam Comprehensive Diagnoses Pulmonary embolism, bilateral I26.99 CAD (coronary artery disease) I25.10 Hyperkalemia E87.5 Alkaline phosphatase elevation R74.8 DM type 2 (diabetes mellitus, type 2) E11.9 HTN (hypertension) I10 GERD (gastroesophageal reflux disease) K21.9 BETH (obstructive sleep apnea) G47.33 RLS (restless legs syndrome) G25.81 Morbid obesity E66.01 Atypical chest pain R07.89 Chronic low back pain M54.5; G89.29
--- NOTE | 2019-12-14 14:49 | PC.NURSE ---
Patient complaints of knee pain and leg restlessness. Xanax and tylenol given.
[2019-12-14 17:10] LABS: Glucose Point of Care 271 mg/dL (70-110)
--- NOTE | 2019-12-16 12:29 | PC.RESP ---
PULMONARY REHAB INFORMATION SENT TO PATIENT.
== END 2019-12-14 17:35 | disposition home or self-care (01) ==
LOC: ER 15:36 → MEDSURG 16:31
PROVIDERS: Nurse Practitioner Family; Admitting Provider Internal Medicine; PCP Family Medicine; Visit Provider Internal Medicine
DX: I26.99 Other pulmonary embolism without acute cor pulmonale (principal); I25.10 Atherosclerotic heart disease of native coronary artery without angina pectoris; E87.5 Hyperkalemia; R74.8 Abnormal levels of other serum enzymes; E11.65 Type 2 diabetes mellitus with hyperglycemia; I10 Essential (primary) hypertension; K21.9 Gastro-esophageal reflux disease without esophagitis; G47.33 Obstructive sleep apnea (adult) (pediatric); G25.81 Restless legs syndrome; E66.01 Morbid (severe) obesity due to excess calories; Z68.44 Body mass index [BMI] 60.0-69.9, adult; R07.89 Other chest pain; G89.29 Other chronic pain; M54.5 Low back pain; Z79.82 Long term (current) use of aspirin; Z79.84 Long term (current) use of oral hypoglycemic drugs; Z79.891 Long term (current) use of opiate analgesic; M81.0 Age-related osteoporosis without current pathological fracture
CPT/HCPCS: 12345; 36415; 36416; 71045; 71275; 80053; 82962; 82977; 83690; 84484; 85025; 85378; 85610; 85730; 93005; 94640; 94664; 96372; 99283; 99285; G0378; J1650; J1815; J3535; Q9967

== ENCOUNTER 2019-12-18 11:31 | Emergency (ER) | payer MEDICARE, MEDICAID, SELFPAY ==
[2019-12-18 11:37] VITALS: BP 197/115; PULSE 96; RESP 16; TEMP 36.8; O2SAT 97; BMI 54.3
--- NOTE | 2019-12-18 11:59 | CT_ITS ---
WS: [id number] CT CHEST ANGIOGRAPHY WITH REFORMATS HISTORY: recent PE, not taking her anticoagulation, worsening SOB TECHNIQUE: Contiguous axial images are obtained through the chest during arterial injection of intrav enous contrast. Images are reconstructed to evaluate the pulmonary arteries. MIP imaging also reviewe d. All CT scans at [facility] use at least one of these dose optimization techniques: aut omated exposure control; mA and/or kV adjustment per patient size (includes targeted exams where dose is matched to clinical indication); or iterative reconstruction. CONTRAST: Omnipaque 350; 95 mL IV. DLP: 1134.22 mGy.cm COMPARISON: 12/13/2019 Good opacification of the pulmonary arteries. Previously described pulmonary emboli are no longer himanshu dent. There are no new or worsening emboli. Pulmonary artery size is equal to the aorta. No pericardi al effusions. No mediastinal or hilar adenopathy. Coronary artery stents are noted. No pneumonia. Scattered benign granulomata. Hepatic steatosis. Splenic granuloma. No adrenal mass. Mild increase in thoracic kyphosis with degene rative disc disease and spondylosis. CT/CT angio chest PE protcl [id number] IMPRESSION: 1. No pulmonary emboli identified today. 2. No pneumonia.
--- NOTE | 2019-12-18 11:59 | USCV_ITS ---
Watson Bridges Age: 59 Gender: F : 1960 Exam Date: 12/18/2019 12:29 Ordering Phys: Mary Covarrubias [place] [facility] [place]ologist: Agatha Morocho [place] [facility] [place]: Acute left upper leg pain HISTORY: Lower extremity pain. PROCEDURES: Venous duplex imaging was performed in only the left lower extremity. The following venous structures were evaluated: common femoral vein, profunda vein, proximal portion of the greater saphenous vein, superficial femoral vein, and the popliteal vein. In addition, the posterior tibial and peroneal trunk were evaluated. Serial compression, augmentation maneuvers, and spectral Doppler flow evaluation were performed. FINDINGS: Normal 2-D Doppler and augmentation and compressibility throughout the lower extremity venous structures. Additional imaging through the proximal calf veins also reveals no thrombus. Limited evaluation of the greater saphenous vein is patent with no thrombus.. CONCLUSIONS Negative left lower extremity deep venous ultrasound. Dr. Maria Del Carmen Delcid MD (Electronically Signed) Final Date: 19 December 2019 09:38 S
[2019-12-18 12:02] VITALS: O2SAT 100
--- NOTE | 2019-12-18 12:17 | W.ED.EXTPRO ---
HPI - Extremity Problem General: Chief complaint: Extremity Problem,Nontraumatic Stated complaint: LEFT SIDE PAIN, 2 WEEKS POST PE Time Seen by Provider: 12/18/19 11:44 Source: patient and EMS Mode of arrival: EMS Limitations: no limitations History of Present Illness: HPI Narrative: Patient is a 59-year-old female patient who was diagnosed with bilateral pulmonary embolism 5 days ago and was placed on Eliquis. The patient has only taken 1 tablet in the last 4 days because of some issues with her pharmacy. Today she noticed worsening shortness of breath and went to see her primary care provider who advised that she come to the emergency department for evaluation. The patient is also complaining of left leg pain, pain is mainly in her thigh. She has also not been very active since discharge. She says she is mostly been laying around. She denies fever, has a mild cough. MD Complaint: extremity pain and extremity swelling Associated symptoms: Deny fever(s) or rash Review of Systems General: Reports: 10 or more systems reviewed and unremarkable except in HPI and below Const: Denies: fever(s), chills or body aches Eyes: Denies: change in vision or blurry vision ENMT: Denies: throat pain, enlarged tonsils, odynophagia, hoarseness, mouth pain or swelling of lips/tongue Card: Denies: palpitations, irregular heart rhythm, edema or swelling of feet/ankles Resp: Reports: dyspnea and non-productive cough; Denies: productive cough GI: Denies: abdominal pain, nausea or vomiting : Denies: flank pain, difficulty voiding, dysuria, urinary frequency, urinary urgency or urinary hesitancy Musc: Reports: extremity pain and extremity swelling; Denies: neck pain or back pain Skin/Breast: Denies: rash, pruritus or erythema Neuro: Denies: headache(s), numbness in extremities or weakness in extremities Endo: Denies: polyuria, polydipsia or tired all the time PFS ED PFSH: Medical History (Updated 12/18/19 @ 15:04 by Mary Covarrubias [place] [facility] [place] Bilateral lower extremity edema CAD (coronary artery disease) Chronic low back pain Constipation CVA (cerebral vascular accident) DM type 2 (diabetes mellitus, type 2) GERD (gastroesophageal reflux disease) HTN (hypertension) Long-term use of high-risk medication Migraine headache Morbid obesity Opioid contract exists BETH (obstructive sleep apnea) Osteoporosis RLS (restless legs syndrome) Surgical History History of partial surgical removal of colon Hx of total knee replacement S/P appendectomy S/P cholecystectomy S/P hysterectomy S/P tonsillectomy and adenoidectomy Family History Grandfather Cancer Family/Other Myocardial infarct MOTHER, FATHER, BROTHER, SISTER Hypertension Diabetes Mother CAD (coronary artery disease) Father CAD (coronary artery disease) Sister CAD (coronary artery disease) Brother CAD (coronary artery disease) Other Stroke Social History Smoking and tobacco status: never smoked Alcohol intake: never Lives independently: Yes Marital status: Current occupational status: unemployed Physical Exam Const: COMMON NORMALS: no acute distress, average body habitus, patient oriented x3, no limitations, healthy appearing, alert and well nourished HENMT: COMMON NORMALS: normocephalic, atraumatic and moist oral mucous membranes HEAD & SCALP: normocephalic and atraumatic Eye: COMMON NORMALS: Equal, round and reactive pupils present, EOMs intact bilaterally, conjunctivae normal and no scleral icterus CONJUNCTIVA: Yes conjunctivae normal PUPIL: Yes Equal, round and reactive pupils present Neck/C-Spine: COMMON NORMALS: full ROM, supple, no meningeal signs, no JVD and No carotid bruits Chest: COMMONS NORMALS: normal inspection of the chest and normal palpation of entire chest wall Resp: COMMON NORMALS: normal respiratory effort, No retractions, No use of accessory muscles, clear to auscultation bilaterally and percussion normal AUSCULTATION: clear to auscultation bilaterally PERCUSSION: percussion normal Cardio: COMMON NORMALS: no JVD, regular rate, regular rhythm, S1 normal heart sound present, S2 normal heart sound present, No gallops present (Cardio), No clicks present (Cardio), No murmurs present (Cardio), No rub (Cardio) and Peripheral pulses 2+ throughout RATE: regular rate RHYTHM: regular rhythm HEART SOUNDS: S1 normal heart sound present and S2 normal heart sound present PERIPHERAL PULSES: Peripheral pulses 2+ throughout GI: COMMON NORMALS: Normal to inspection, nondistended, normoactive bowel sounds present, Soft to palpation, non-tender, No hepatosplenomegaly present, no masses and no bruits PALPATION: Yes Soft to palpation and Yes No hepatosplenomegaly present : COMMON NORMALS: Yes no CVA tenderness BLADDER/KIDNEY EXAM: Yes no CVA tenderness Back/Pelvis: COMMON NORMALS: no CVA tenderness Extremity: COMMON NORMALS: normal to inspection, full ROM, capillary refill normal and no calf tenderness GENERAL: Yes edema (left lower extremity) Neuro: COMMON NORMALS: patient oriented x3 SENSORIUM/ORIENTATION: Yes alert MENINGEAL SIGNS: Yes no meningeal signs Skin: COMMON NORMALS: no rashes or lesions noted, no wounds, turgor normal, no jaundice, no petechiae and no mottling GENERAL SKIN EXAM: no rashes or lesions noted and turgor normal Course Reevaluation(s): Reevaluation #1: Discussed her lab and imaging findings this time. Negative for acute findings. CTA shows the small pulmonary emboli.she had have cleared. The patient has been in contact with the pharmacy and she will be able to get the Eliquis, he will be ready for her by the time she gets there today. We will therefore discharge her home with no new orders. She voiced understanding and is in agreement with the plan. Time: 15:03 Vital Signs: Vital signs: Vital Signs Temperature 98.3 F 12/18/19 11:37 Pulse Rate 94 12/18/19 15:40 Respiratory Rate 16 12/18/19 11:37 Blood Pressure 189/94 12/18/19 15:40 Pulse Oximetry 97 12/18/19 15:40 MDM - Extremity (Nontraumatic) MDM Narrative: Medical decision making narrative: 59-year-old female patient who was recently diagnosed with bilateral small pulmonary emboli and was discharged on oral apixaban presents to the emergency department with shortness of breath. She had apparently had difficulty obtaining the anticoagulants from her pharmacy and had only taking 1 tablets in about 4 days. Because of concerns for worsening PE and because the patient had a new left lower extremity pain her primary care provider sent her here for evaluation. Luckily repeat CTA was negative for pulmonary emboli. Case management and the emesis staff worked with the patient to ensure she had the anticoagulant ready for her at her pharmacy which was the case. She is evaluated and nothing acute on examination and laboratory testing including imaging. She is therefore discharged home with no new orders. Medical Records: Attestation: I reviewed the patient's medical records. Lab Data: Attestation: I reviewed the patient's lab results. Labs: Lab Results 12/18/19 12/18/19 Range/Units 12:40 12:40 WBC 11.5 H (4.0-10.0) 10^3/ uL RBC 5.43 H (4.1-5.3) 10^6/u L Hgb 14.2 (11.5-15.3) g/dL Hct 46.3 (37.0-47.0) % MCV 85.3 (81-99) fL MCH 26.2 L (28.0-34.0) pg MCHC 30.7 (30.0-36.0) g/dL RDW 14.8 (12.1-15.1) % Plt Count 369 (130-400) 10^3/c mm MPV 9.8 (7.4-10.4) fL Neut % (Auto) 63.9 % Lymph % (Auto) 26.3 % [place] % (Auto) 5.1 % Eos % (Auto) 4.0 % Baso % (Auto) 0.4 % Neut # (Auto) 7.4 (1.8-7.7) 10^3/u L Lymph # (Auto) 3.0 (0.8-4.8) 10^3/u L [place] # (Auto) 0.6 (0.2-0.9) 10^3/u L Eos # (Auto) 0.5 (0.0-0.8) 10^3/u L Baso # (Auto) 0.1 (0.0-0.1) 10^3/u L Nucleated RBC % (a uto) 0 % Nucleated RBCs # 0.0 /100WBC Sodium 137 (136-145) mmol/L Potassium 4.3 (3.5-5.1) mmol/L Chloride 99 (98-107) mmol/L Carbon Dioxide 27 (22-29) mmol/L Anion Gap 15.3 (5-19) BUN 9 (6-20) mg/dL Creatinine 0.7 (0.5-0.9) mg/dL GFR Calculation 86.2 L (90-130) mL/min Glucose 274 H (65-115) mg/dL Calculated Osmolal ity 290 (285-295) mOsm/k g Calcium 10.2 (8.5-10.5) mg/dL Total Bilirubin 0.3 (0.15-1.2) mg/dL AST 10 (0-32) U/L ALT 11 (0-33) U/L Alkaline Phosphata se 122 H (35-105) IU/L NT-Pro-B Natriuret Pep 89 (0-125) pg/mL Total Protein 7.5 (6.6-8.7) g/dL Albumin 3.4 L (3.5-5.2) g/dL Globulin 4.1 (1.3-4.6) g/dL Imaging Data^: CTA Chest: Radiologist's impression: [place] [address] CT Scan Report Signed Patient: Cheryl Bridges #: [id number] : 1960Acct#:[id number] Age/Sex: 59 / FADM Date: 12/18/19 [facility] Attending Dr: Ordering Provider/Ordering MD: Mary Covarrubias [place] [facility] [place] of Service: 12/18/19 Procedure(s): CT angio chest PE protcl [id number] Accession Number(s): [id number] Report Number: [id number] WS: [id number] CT CHEST ANGIOGRAPHY WITH REFORMATS HISTORY: recent PE, not taking her anticoagulation, worsening SOB TECHNIQUE: Contiguous axial images are obtained through the chest during arterial injection of intravenous contrast. Images are reconstructed to evaluate the pulmonary arteries. MIP imaging also reviewed. All CT scans at [facility] use at least one of these dose optimization techniques: automated exposure control; mA and/or kV adjustment per patient size (includes targeted exams where dose is matched to clinical indication); or iterative reconstruction. CONTRAST: Omnipaque 350; 95 mL IV. DLP: 1134.22 mGy.cm COMPARISON: 12/13/2019 Good opacification of the pulmonary arteries. Previously described pulmonary emboli are no longer evident. There are no new or worsening emboli. Pulmonary artery size is equal to the aorta. No pericardial effusions. No mediastinal or hilar adenopathy. Coronary artery stents are noted. No pneumonia. Scattered benign granulomata. Hepatic steatosis. Splenic granuloma. No adrenal mass. Mild increase in thoracic kyphosis with degenerative disc disease and spondylosis. CT/CT angio chest PE protcl [id number] IMPRESSION: 1. No pulmonary emboli identified today. 2. No pneumonia. Dictated By:Shanthi Figueroa DO Signed By:Shanthi Figueroa DOSigned Date/Time:12/18/19 9614 Discharge Plan Discharge Patient Disposition: Home, Self-Care Clinical Impression: Pulmonary embolism, bilateral, Breath, shortness Condition: Stable Prescriptions: Continued cyclobenzaprine 10 mg tablet 10 mg PO TID PRN (Reason: muscle spasm) 30 Days Qty: 90 RF: 0 hydrocodone-acetaminophen 10-325 mg tablet 1 tab PO .6 TIMES DAY PRN (Reason: pain) 30 Days Qty: 180 RF: 0 Jardiance 25 mg tablet 25 mg PO DAILY Qty: 30 RF: 2 fluconazole [Diflucan] 150 mg tablet 150 mg PO DAILY Qty: 3 RF: 1 amlodipine 5 mg tablet 5 mg PO QDAY Qty: 30 RF: 5 bupropion HCl [Wellbutrin SR] 200 mg tablet sustained-release 12 hr 200 mg PO Q12H Qty: 60 RF: 5 buspirone 7.5 mg tablet 7.5 mg PO BID Qty: 60 RF: 5 fluticasone propionate 50 mcg/actuation blister with device 2 inh INHALATION Q12H Qty: 60 RF: 5 furosemide 20 mg tablet 10 mg PO QAM Qty: 30 RF: 5 isosorbide mononitrate 30 mg tablet extended release 24 hr 30 mg PO QAM Qty: 30 RF: 5 metoprolol tartrate 50 mg tablet 50 mg PO BID Qty: 60 RF: 5 metformin 1,000 mg tablet extended release 24hr 1,000 mg PO BID Qty: 60 RF: 2 famotidine [Pepcid] 40 mg tablet 40 mg PO BID Qty: 60 RF: 1 insulin aspart U-100 [Novolog U-100 Insulin aspart] 100 unit/mL solution See Rx Instructions SUBCUT DAILY Qty: 30 RF: 2 Nitrostat 0.4 mg tablet, sublingual 0.4 mg SUBLINGUAL ONCE Qty: 1 RF: 0 Nitrolingual 400 mcg/spray spray,non-aerosol 1 spray SUBLINGUAL Q5M Qty: 1 RF: 0 atorvastatin 40 mg tablet 40 mg PO DAILY RF: 0 lisinopril 20 mg tablet 20 mg PO DAILY RF: 0 Hold Instructions: Resume on 12/28/19. Requip 0.25 mg tablet 0.25 mg PO BEDTIME RF: 0 Repatha SureClick 140 mg/mL pen injector 140 mg SUBCUT Q14D RF: 0 magnesium oxide 400 mg magnesium tablet 400 mg PO DAILY RF: 0 apixaban 5 mg (74 tabs) tablets,dose pack See Rx Instructions .ROUTE .COMPLEX Qty: 74 RF: 0 clopidogrel 75 mg Tablet 75 mg PO DAILY Qty: 30 RF: 0 Discharge Orders: Discharge Order (Routine); Ordered 12/18/19 Ordered By: Mary Covarrubias Referrals: Michelle Billy MD [Primary Care Provider] - 4-7 days Patient Instructions: Pulmonary Embolism Activity Restrictions/Additional Instructions: Return for any new or worsening symptoms. Take the Eliquis as prescribed, it is important for you to continue to take that to prevent recurrence of the blood clots in your lungs. As of today it appears of blood clots in your lungs may have resolved, but it is still important for you to take the blood thinners for at least 3 to 6 months. Follow-up with your primary care provider within 1 week. Discharge Date/Time: 12/18/19 15:40 Coding Level of Care Code ED Cloth Folder Hand for Romie Fwd Exam Comprehensive
--- NOTE | 2019-12-18 12:23 | PC.NURSE ---
portable ultrasound at bedside
--- NOTE | 2019-12-18 12:43 | PC.NURSE ---
pt transported to CT by stretcher with tech
[2019-12-18 12:46] LABS: Basophils # 0.1 10^3/uL (0.0-0.1); Basophils % 0.4 %; Eosinophils # 0.5 10^3/uL (0.0-0.8); Hematocrit 46.3 % (37.0-47.0); Hemoglobin 14.2 g/dL (11.5-15.3); Lymphocytes % 26.3 %; Mean Corpuscular HGB Conc 30.7 g/dL (30.0-36.0); Mean Corpuscular Hemoglobin 26.2 pg (28.0-34.0); Mean Corpuscular Volume 85.3 fL (81-99); Mean Platelet Volume 9.8 fL (7.4-10.4); Monocytes # 0.6 10^3/uL (0.2-0.9); Monocytes % 5.1 %; Neutrophils # 7.4 10^3/uL (1.8-7.7); Neutrophils % 63.9 %; Nucleated Red Blood Cells % 0 %; Platelet Count 369 10^3/cmm (130-400); Red Blood Count 5.43 10^6/uL (4.1-5.3); Red Cell Distribution Width 14.8 % (12.1-15.1); White Blood Count 11.5 10^3/uL (4.0-10.0)
[2019-12-18] MEDS: iohexol 350 mg/mL 100 mL Btl IV (12:51)
[2019-12-18 13:09] LABS: Alanine Aminotransferase 11 U/L (0-33); Albumin Level 3.4 g/dL (3.5-5.2); Alkaline Phosphatase 122 IU/L (35-105); Anion Gap 15.3 (5-19); Aspartate Amino Transferase 10 U/L (0-32); Blood Urea Nitrogen 9 mg/dL (6-20); Calcium 10.2 mg/dL (8.5-10.5); Carbon Dioxide 27 mmol/L (22-29); Chloride 99 mmol/L (98-107); Creatinine Clr Calc Pharmacy 121.9804; Globulin 4.1 g/dL (1.3-4.6); Glomerular Filtration Rate 86.2 mL/min (90-130); Glucose 274 mg/dL (65-115); NT Pro B Type Natriuretic Pept 89 pg/mL (0-125); Osmolality Calculated 290 mOsm/kg (285-295); Potassium 4.3 mmol/L (3.5-5.1); Sodium 137 mmol/L (136-145); Total Bilirubin 0.3 mg/dL (0.15-1.2); Total Protein 7.5 g/dL (6.6-8.7)
[2019-12-18 14:03] VITALS: BP 147/78; PULSE 97; O2SAT 96
[2019-12-18 15:40] VITALS: BP 189/94; PULSE 94; O2SAT 97
--- NOTE | 2019-12-18 15:40 | PC.NURSE ---
22g iv removed from left FA. 20g iv removed from left AC. both iv's tip intact. pressure dressing applied.
== END 2019-12-18 15:40 | disposition home or self-care (01) ==
PROVIDERS: Emergency Provider Family Medicine; PCP Family Medicine
DX: R06.02 Shortness of breath (principal); I26.99 Other pulmonary embolism without acute cor pulmonale; Z79.82 Long term (current) use of aspirin; I25.10 Atherosclerotic heart disease of native coronary artery without angina pectoris; Z86.73 Personal history of transient ischemic attack (TIA), and cerebral infarction without residual deficits; E11.9 Type 2 diabetes mellitus without complications; I10 Essential (primary) hypertension
CPT/HCPCS: 12345; 36415; 71275; 80053; 83880; 85025; 93971; 99283; Q9967

== ENCOUNTER → 2019-12-23 15:00 | Outpatient (BNVA) | payer MEDICARE, MEDICAID, SELFPAY | PROVIDERS: PCP Family Medicine; Visit Provider Family Medicine | DX: I26.99 Other pulmonary embolism without acute cor pulmonale (principal) | CPT/HCPCS: 81241; 83090; 85025; 85300; 85303; 85306; 85384; 85610; 85730 ==

== ENCOUNTER → 2020-01-22 11:03 | Outpatient (BNVA) | payer MEDICARE, MEDICAID, SELFPAY | PROVIDERS: PCP Family Medicine; Visit Provider Nurse Practitioner | DX: G89.29 Other chronic pain (principal); M54.41 Lumbago with sciatica, right side; M54.42 Lumbago with sciatica, left side; M62.838 Other muscle spasm; Z79.891 Long term (current) use of opiate analgesic | CPT/HCPCS: 99213 ==

== ENCOUNTER 2020-01-22 13:38 | Outpatient (CLI) | payer MEDICARE, MEDICAID, SELFPAY ==
[2020-01-22 16:48] LABS: Add Urine Microscopic? YES; Bilirubin Urine Neg (NEGATIVE); Blood Urine Neg (Negative); Glucose Urine UA 4+ (Normal); Ketones Urine Negative (Negative); Leukocyte Esterase Urine Negative (Negative); Nitrate Urine Negative (Negative); Protein Urine Neg (Negative); Specific Gravity, Urine 1.005 (1.005-1.030); Urine Appearance Hazy (CLEAR); Urine Color Yellow (Yellow); Urobilinogen Urine Norm (Negative); pH Urine 5 (5-7)
[2020-01-22 16:50] LABS: Add Urine Culture? No; Bacteria Urine 2+; Squamous Epithelial Cell Urine 15-25 (0-5)
--- NOTE | 2020-01-22 19:41 | ONC CON_ITS ---
Dr. Daniel New Patient Note Patient: Watson Bridges Unit #: [id number]: 1960 Dicatated By: Michael Daniel M.D.Date of Visit: Jan 22, 2020 Onc MED New Patient/Consult Referring Physician: Dr. EFRAIN WISDOM D.O. Chief Complaint: Pulmonary emboli. History of Present Illness: This is a 59-year-old woman with bilateral pulmonary emboli. This patient has multiple medical illnesses including hypertension, hyperlipidemia, type 2 diabetes, coronary artery disease, and obstructive sleep apnea. She has degenerative arthritis with chronic back pain. She also has a history of prior stroke. On 12/13/2019 she had presented to the emergency room with 3-day history of chest pain and shortness of breath. Her cardiac evaluation was apparently unrevealing, but she was found to have an elevated d-dimer, and her CT pulmonary angiogram showed multilevel filling defects consistent with thromboembolic changes and high probability of pulmonary embolus. She was admitted to the hospital on anticoagulation with Lovenox, and she subsequently was discharged home on apixaban. A repeat CT pulmonary angiogram on 12/18/2019 showed no evidence of pulmonary emboli. She had follow-up with Dr. Wisdom on 12/23/2019. Her further evaluation at that time included protein C and protein S activity levels, both of which were slightly low at 67% and 52% respectively. The Antithrombin III activity was in the low normal range at 87%. At this point she continues to have limited activity tolerance, as she is short of breath with any effort. Her ECOG score is 2. Her appetite has been down lately. She reports having weight loss. She has not had fever. For the past 2 or 3 months she has been having night sweating off and on. She has cough when she lies down at bedtime. She does not complain of chest pain. She had nausea/vomiting this afternoon, possibly related to the heat. She has acid reflux, which she manages adequately with Tums. She has chronic constipation. She has not been aware of any blood in the stool. She has had grossly bloody urine intermittently, but that seems to clear up if she drinks cranberry juice. She has arthritis in her knees. She has chronic back pain. She has migraine headaches. She has numbness/tingling in her hands and feet. Past Medical History: Her medical history includes anxiety and depression, chronic low back pain, coronary artery disease, gastroesophageal reflux disease, history of stroke, hyperlipidemia, hypertension, migraine headaches, obstructive sleep apnea, osteoporosis, pulmonary embolism, restless leg syndrome, and type II diabetes. Past Surgical History: Her surgical/procedural history includes appendectomy, arthroscopic knee surgery bilaterally, cholecystectomy, coronary angioplasty/stent placement, hysterectomy, partial small bowel resection, and tonsillectomy - with adenoidectomy. Medications: amLODIPine Besylate 1 Tablet (of 5 mg) Oral daily, Atorvastatin Calcium 1 Tablet (of 40 mg) Oral daily, buPROPion HCl ER (SR) 1 Tablet (of 200 mg) Tablet SR 12 HR Oral q 12 hours, busPIRone HCl 1 Tablet (of 7.5 mg) Oral b.i.d., Clopidogrel Bisulfate 1 Tablet (of 75 mg) Oral daily, Cyclobenzaprine HCl 1 Tablet (of 10 mg) Oral t.i.d., Eliquis 1 Tablet (of 5 mg) Oral b.i.d., Famotidine 1 Tablet (of 40 mg) Oral b.i.d., Furosemide 0.5 Tablet (of 40 mg) Oral daily, HYDROcodone-Acetaminophen 1 Tablet (of 10-325 mg) Oral q 6 hours PRN, Isosorbide Mononitrate ER 1 Tablet (of 30 mg) Tablet SR 24 HR Oral daily, Jardiance 1 Tablet (of 25 mg) Oral daily, Lisinopril 1 Tablet (of 20 mg) Oral daily, metFORMIN HCl 1 Tablet (of 1000 mg) Oral b.i.d., Metoprolol Tartrate 1 Tablet (of 50 mg) Oral b.i.d., rOPINIRole HCl 1 Tablet (of 0.25 mg) Oral at bedtime, Ventolin HFA Aerosol, solution Inhalation PRN Allergies: Citalopram Hydrobromide, Esomeprazole Magnesium, Famotidine, Ibuprofen, and Morphine Sulfate. Social History: Ms. Bridges is . She is currently not employed. She is a non-smoker. She does not drink alcohol. Family History: Ms. Bridges's mother at age 66: myocardial infarction. Ms. Bridges's father at age 72: congestive heart failure, and coronary artery disease, and myocardial infarction. Ms. Bridges's maternal grandmother is : breast cancer. Both parents with heart disease, father at age 72 and mother at age 66. She had a total of 10 siblings, some of whom had heart disease and/or diabetes. One sister had blood clots. Her paternal grandmother had breast cancer. Her maternal grandmother with complications of diabetes. Review Of Symptoms: Constitutional - She has very limited activity tolerance. Appetite lately has been down. She reports having weight loss. For the past 2 or 3 months she has been having night sweating off and on. ECOG score is 2, Eyes - She sometimes has spots in her visual [place], ENMT - She has hearing loss and tinnitus. She has sinus drainage. No mouth sores. No sore throat or difficulty swallowing, Hematologic/Lymphatic - She has easy bruising, Respiratory - She has shortness of breath with activity. She has cough when she lies down at night. No pleuritic pain or hemoptysis, Cardiovascular - No angina pain. No palpitations, Gastrointestinal - She had some nausea/vomiting this afternoon, possibly heat related. She has acid reflux, which she manages with Tums. She has constipation. No blood in the stool or black stools, Genitourinary (F) - She reports having blood in her urine intermittently. She has urinary frequency with urgency and incontinence, Musculoskeletal - She has arthritis in her knees and back, Integumentary - No skin rash, Neurologic - She has migraine headaches. She occasionally has dizziness. She has numbness/tingling in her hands and feet, Psychiatric - She has anxiety and depression. She has difficulty sleeping. Vital Signs: Performed on Jan 22, 2020 15:01: 7, 54.03 (HIGH), 2.31 sq.m, 63.00 in, 97 %, 72 /min, 24 /min, 135/68 mm(hg), 97.3 F (LOW), and 305.0 lbs (HIGH). Physical Examination: Constitutional - She is very obese. She does not appear acutely ill, Eyes - Sclerae nonicteric. Conjunctivae clear, ENMT - Mouth is dry. There are no lesions noted in the oral cavity, Neck - No mass or thyromegaly, Hematologic/Lymphatic - No cervical, clavicular, or axillary adenopathy, Respiratory - Lungs are clear with diminished air movement bilaterally, Cardiovascular - Heart rhythm is regular. There is no murmur, gallop, or rub noted, Abdomen - Distended. Liver and spleen are not enlarged. There is no abdominal mass or ascites noted and there is no inguinal adenopathy, Back/Spine - No spine or CVA tenderness noted, Extremities - Mild lower extremity edema. Dorsalis pedis pulses are palpable bilaterally, Integumentary - No rashes. No suspicious skin lesions noted, Neurologic - No focal neurologic deficits noted. Impression: 1. Patient with bilateral pulmonary emboli, unprovoked. 2. She had slightly low protein C and protein S activity. The clinical significance is uncertain. Her other medical illnesses include: 3. Hypertension. 4. Hyperlipidemia. 5. Type 2 diabetes, on insulin pump. 6. Coronary artery disease with previous angioplasty/stent placement. 7. Obstructive sleep apnea. 8. She has severe obesity. 9. GERD. 10. Degenerative arthritis and chronic back pain. 11. Osteoporosis. 12. Migraine headaches. 13. History of prior stroke. 14. Anxiety and depression. Plan: Patient was recently hospitalized with bilateral pulmonary emboli. At this point she remains on anticoagulation with apixaban. She seems to be tolerating it well other than she has had intermittent hematuria. Her laboratory studies showed slightly low protein C and protein S activity, the clinical significance of which is uncertain. In my opinion it is a moot point, as in the setting of unprovoked bilateral pulmonary emboli I think she does need to be committed to long-term anticoagulation. We did discuss the fact that after 6 months of treatment she can be transitioned to a maintenance dosage, but for now she continues the apixaban at 5 mg twice daily. I will check urinalysis and culture today. If the hematuria persists, she probably will need to see a urologist. The other concern is that she remains on both aspirin and Plavix together with the apixaban, which does increase her bleeding risk. As it has been at least 5 years since her most recent coronary stent placement, I think it would be advisable for her to stop the Plavix. I will, however, see if I can arrange for her to see one of the cardiologists. In addition, she does need to see an fireworks assembler for management of her diabetes, and she prefers to do that locally if possible. I will tentatively plan a follow-up visit here in 3 months. Signed By: Michael Daniel M.D. <<Signature on File>>
== END 2020-01-22 13:39 | disposition home or self-care (01) ==
LOC: ONCMED 13:48
PROVIDERS: PCP Family Medicine; Visit Provider Internal Medicine Medical Oncology
DX: I26.99 Other pulmonary embolism without acute cor pulmonale (principal); R31.9 Hematuria, unspecified; I10 Essential (primary) hypertension; E78.5 Hyperlipidemia, unspecified; E11.9 Type 2 diabetes mellitus without complications; I25.10 Atherosclerotic heart disease of native coronary artery without angina pectoris; G47.33 Obstructive sleep apnea (adult) (pediatric); M19.90 Unspecified osteoarthritis, unspecified site; G89.29 Other chronic pain; F41.8 Other specified anxiety disorders; M54.5 Low back pain; K21.9 Gastro-esophageal reflux disease without esophagitis; M81.0 Age-related osteoporosis without current pathological fracture; G25.81 Restless legs syndrome; E66.9 Obesity, unspecified; Z79.891 Long term (current) use of opiate analgesic; Z79.01 Long term (current) use of anticoagulants; Z86.73 Personal history of transient ischemic attack (TIA), and cerebral infarction without residual deficits; Z95.5 Presence of coronary angioplasty implant and graft; Z96.41 Presence of insulin pump (external) (internal); Z86.711 Personal history of pulmonary embolism
CPT/HCPCS: 81001; 81003; 99205

== ENCOUNTER → 2020-03-03 13:04 | Outpatient (BNVA) | payer MEDICARE, MEDICAID, SELFPAY | PROVIDERS: PCP Family Medicine; Visit Provider Family Medicine | DX: E11.9 Type 2 diabetes mellitus without complications (principal); R30.0 Dysuria | CPT/HCPCS: 80053; 80061; 83036; 85025; 87086 ==

== ENCOUNTER → 2020-03-23 16:43 | Outpatient (BNVA) | payer MEDICARE, MEDICAID, SELFPAY | PROVIDERS: PCP Family Medicine; Visit Provider Family Medicine | DX: R30.0 Dysuria (principal); M62.81 Muscle weakness (generalized); R31.0 Gross hematuria | CPT/HCPCS: 80053; 81003; 87086 ==

== ENCOUNTER → 2020-03-30 15:30 | Outpatient (BNVA) | payer MEDICARE, MEDICAID, SELFPAY | PROVIDERS: PCP Family Medicine; Visit Provider Family Medicine | DX: R31.0 Gross hematuria (principal) | CPT/HCPCS: 81003 ==

== ENCOUNTER 2020-03-31 09:52 | Outpatient (CLI) | payer MEDICARE, MEDICAID, SELFPAY ==
--- NOTE | 2020-03-31 09:54 | CT_ITS ---
WS: [id number] CT ABDOMEN PELVIS TECHNIQUE: Noncontrast CT of the abdomen and pelvis with coronal and sagittal reformatted images. CLINICAL INFORMATION: hematuria COMPARISON: 1 16,019 DLP: 1865.[address] scans at [facility] use at least one of these dose optimization techniques: automat ed exposure control; mA and/or kV adjustment per patient size (includes targeted exams where dose is matched to clinical indication); or iterative reconstruction. FINDINGS: Diffuse fatty infiltration liver. Splenic granulomas. Lung bases are well aerated. Centrally calcifie d granulomas in the left lower lobe. Mild fatty atrophy of the pancreas. Adrenal glands are normal. N o hydronephrosis. Prominent right extrarenal pelvis. No obstructing renal or ureteral calculi. Normal caliber abdominal aorta. No periaortic lymphadenopathy. A few sigmoid diverticuli. No evidence of acute diverticulitis. No evidence of small or large bowel o bstruction. Fat-containing umbilical hernia. Fat-containing right periumbilical hernia. Wide mouth right ventral abdominal wall hernia measuring 4.7CCM. Herniated bowel without evidence of obstruction. No pelvic or inguinal lymphadenopathy. Disc space narrowing worse at L4-[address]/CT abdomen pelvis wo con [id number] IMPRESSION: 1. No obstructing renal or ureteral calculi. No hydronephrosis. 2. Right periumbilical ventral abdominal wall hernia wide mouth measuring 4.7 CM. Herniated bowel without evidence of obstruction. 3. Additional smaller umbilical and periumbilical fat containing hernias. 4. A few sigmoid diverticuli. No evidence of acute diverticulitis. 5. Prior postoperative changes small bowel in the left lower quadrant. 6. No abdominal or pelvic lymphadenopathy. 7. Moderate central canal stenosis L4-5 with disc osteophyte complex. 8. Prior cholecystectomy and hysterectomy.
== END 2020-03-31 09:53 | disposition home or self-care (01) ==
LOC: RAD 09:53
PROVIDERS: PCP Family Medicine; Visit Provider Family Medicine
DX: R31.9 Hematuria, unspecified (principal); K43.9 Ventral hernia without obstruction or gangrene; K42.9 Umbilical hernia without obstruction or gangrene; K57.30 Diverticulosis of large intestine without perforation or abscess without bleeding; M48.061 Spinal stenosis, lumbar region without neurogenic claudication; M25.78 Osteophyte, vertebrae; Z90.49 Acquired absence of other specified parts of digestive tract; Z90.710 Acquired absence of both cervix and uterus
CPT/HCPCS: 74176

== ENCOUNTER → 2020-04-29 11:51 | Outpatient (BNVA) | payer MEDICARE, MEDICAID, SELFPAY | PROVIDERS: PCP Family Medicine; Visit Provider Family Medicine | DX: Z20.828 Contact with and (suspected) exposure to other viral communicable diseases (principal) | CPT/HCPCS: 87635 ==

== ENCOUNTER → 2020-05-15 10:52 | Outpatient (BNVA) | payer MEDICARE, MEDICAID, SELFPAY | PROVIDERS: PCP Family Medicine; Visit Provider Internal Medicine | DX: E11.9 Type 2 diabetes mellitus without complications (principal); Z79.4 Long term (current) use of insulin | CPT/HCPCS: 99203 ==

== ENCOUNTER → 2020-06-02 08:21 | Outpatient (BNVA) | payer MEDICARE, MEDICAID, SELFPAY | PROVIDERS: PCP Family Medicine; Visit Provider Internal Medicine | DX: E11.9 Type 2 diabetes mellitus without complications (principal) | CPT/HCPCS: 99213 ==

== ENCOUNTER 2020-06-02 12:31 | Outpatient (CLI) | payer MEDICARE, MEDICAID, SELFPAY ==
[2020-06-02 14:02] LABS: Basophils % 0.3 %; Eosinophils # 0.5 10^3/uL (0.0-0.8); Eosinophils % 4.9 %; Hematocrit 43.6 % (37.0-47.0); Hemoglobin 13.7 g/dL (11.5-15.3); Lymphocytes # 2.5 10^3/uL (0.8-4.8); Lymphocytes % 24.6 %; Mean Corpuscular HGB Conc 31.4 g/dL (30.0-36.0); Mean Platelet Volume 9.9 fL (7.4-10.4); Monocytes # 0.5 10^3/uL (0.2-0.9); Monocytes % 4.9 %; Neutrophils # 6.47 10^3/uL (1.8-7.7); Nucleated Red Blood Cells % 0 %; Platelet Count 325 10^3/cmm (130-400); Red Blood Count 5.07 10^6/uL (4.1-5.3); Red Cell Distribution Width 14.6 % (12.1-15.1)
[2020-06-02 14:29] LABS: Alanine Aminotransferase 19 U/L (0-33); Albumin Level 3.5 g/dL (3.5-5.2); Alkaline Phosphatase 113 IU/L (35-105); Anion Gap 13.1 (5-19); Aspartate Amino Transferase 15 U/L (0-32); Blood Urea Nitrogen 9 mg/dL (6-20); Calcium 9.1 mg/dL (8.5-10.5); Carbon Dioxide 29 mmol/L (22-29); Chloride 100 mmol/L (98-107); Glomerular Filtration Rate 86.2 mL/min (90-130); Glucose 348 mg/dL (65-115); Lipase 14 U/L (13-60); Osmolality Calculated 299 mOsm/kg (285-295); Potassium 4.1 mmol/L (3.5-5.1); Sodium 138 mmol/L (136-145); Total Bilirubin 0.2 mg/dL (0.15-1.2); Total Protein 6.5 g/dL (6.6-8.7)
[2020-06-02 15:20] LABS: Estmated Average Glucose 275; Hemoglobin A1C 11.2 % (4.0-6.0)
--- NOTE | 2020-06-05 16:04 | ONC FU_ITS ---
Dr. Daniel Patient Follow-Up Note Patient: Watson Bridges Unit #: [id number]: 1960 Dicatated By: Michael Daniel M.D.Date of Visit:Jun 02, 2020 Onc Med Follow-up/Prog Note Chief Complaint: Pulmonary emboli. History of Present Illness: This is a 59 year-old woman with bilateral pulmonary emboli. On 12/13/2019 she had presented to the emergency room with 3-day history of chest pain and shortness of breath. Her cardiac evaluation was apparently unrevealing, but she was found to have an elevated d-dimer, and her CT pulmonary angiogram showed multilevel filling defects consistent with thromboembolic changes and high probability of pulmonary embolus. She was admitted to the hospital on anticoagulation with Lovenox, and she subsequently was discharged home on apixaban. A repeat CT pulmonary angiogram on 12/18/2019 showed no evidence of pulmonary emboli. She had follow-up with Dr. Billy on 12/23/2019. Her further evaluation at that time included protein C and protein S activity levels, both of which were slightly low at 67% and 52% respectively. The Antithrombin III activity was in the low normal range at 87%. I had seen her initially on 01/22/2020. In the setting of a significant episode of unprovoked pulmonary embolism, she was recommended to continue anticoagulation indefinitely. Her other medical illnesses include hypertension, hyperlipidemia, type 2 diabetes, coronary artery disease, and obstructive sleep apnea. She has degenerative arthritis with chronic back pain. She also has a history of prior stroke. Her prior surgeries include appendectomy, cholecystectomy, partial small bowel resection, and hysterectomy. She has undergone arthroscopic knee surgery bilaterally and she has undergone coronary angioplasty/stent placement. She is a non-smoker. She is seen for a follow-up visit. She complains that her breathing is worse. She has been getting short of breath with any activity. She has not had chest pain, but she has had some tightness in the area of the left shoulder blade and she complains that her left arm is been going numb. She has limited activity, but she is able to do some light work. Her ECOG score is 1. Her appetite is not good. She says she eats only 1 meal a day. Her weight, though, is stable. She has no fever or night sweats. She has been having stomach problems, including pain in the epigastric area. She has nausea says vomiting about every night, and she has been taking Tums. For the past 2 days she has had diarrhea. She has not been aware of any blood in the stool. She is scheduled to see Dr. Whitman next week. Medications: amLODIPine Besylate 1 Tablet (of 5 mg) Oral daily, Aspirin 1 Tablet (of 81 mg) Tablet, enteric coated Oral daily, Atorvastatin Calcium 1 Tablet (of 40 mg) Oral daily, buPROPion HCl ER (SR) 1 Tablet (of 200 mg) Tablet SR 12 HR Oral q 12 hours, busPIRone HCl 1 Tablet (of 7.5 mg) Oral b.i.d., Clopidogrel Bisulfate 1 Tablet (of 75 mg) Oral daily, Cyclobenzaprine HCl 1 Tablet (of 10 mg) Oral t.i.d., Eliquis 1 Tablet (of 5 mg) Oral b.i.d., Famotidine 1 Tablet (of 40 mg) Oral b.i.d., Furosemide 1 Tablet (of 40 mg) Oral daily, HumaLOG 22 - 24 Units (of 100 Units/mL) Subcutaneous four times a day, HYDROcodone-Acetaminophen 1 Tablet (of 10-325 mg) Oral q 6 hours PRN, Isosorbide Mononitrate ER 1 Tablet (of 30 mg) Tablet SR 24 HR Oral daily, Jardiance 1 Tablet (of 25 mg) Oral daily, Levemir 2 Units (of 100 Units/mL) Subcutaneous every am, Lisinopril 1 Tablet (of 20 mg) Oral daily, metFORMIN HCl 1 Tablet (of 1000 mg) Oral daily, Metoprolol Tartrate 1 Tablet (of 50 mg) Oral b.i.d., rOPINIRole HCl 1 Tablet (of 0.25 mg) Oral at bedtime, Ventolin HFA Aerosol, solution Inhalation PRN Allergies: Citalopram Hydrobromide, Esomeprazole Magnesium, Famotidine, Ibuprofen, and Morphine Sulfate. Review of Systems: Constitutional - She has fatigue and limited activity tolerance. She does not have good appetite. She says she eats just 1 meal a day. Her weight is stable. She does not have fever or night sweats. ECOG score is 1, ENMT - She has sinus congestion/drainage. No mouth sores. No sore throat or difficulty swallowing, Hematologic/Lymphatic - She has some bruising with needle sticks, Respiratory - She has shortness of breath with any activity. No cough. No pleuritic pain or hemoptysis, Cardiovascular - She has not had chest pain, but she has had some tightness in the area of the left shoulder blade and she complains that her left arm goes numb. No palpitations, Gastrointestinal - She has been having nausea/vomiting every night. She has been taking Tums. She has had diarrhea for the past 2 days. She has not been aware of any blood in the stool or black stools, Genitourinary (F) - No dysuria or hematuria. No urinary frequency. She has had some urgency/incontinence, Musculoskeletal - She has pain in her back and in her knees, Neurologic - She has migraine headaches. She occasionally has dizziness. She has numbness/tingling in her arms and legs, Psychiatric - She has anxiety/depression and she has difficulty sleeping. Vital Signs: Performed on Jun 02, 2020 12:55 Height - 63.00 in Weight - 306.4 lbs (HIGH) BSA - 2.32 sq.m BMI - 54.28 (HIGH) Temperature - 97.0 F (LOW) Pulse - 88 /min Respiration - 26 /min BP - 158/59 mm(hg) (HIGH) O2 Sat - 98 % Pain - 8 Physical Examination: Constitutional - She does not appear acutely ill, Eyes - Sclerae nonicteric. Conjunctivae clear, ENMT - No lesions noted in the oral cavity, Hematologic/Lymphatic - No cervical, clavicular, or axillary adenopathy, Respiratory - Lungs sound clear with some decreae in air movement bilaterally, Cardiovascular - Heart rhythm is regular. There is no murmur, gallop, or rub noted, Abdomen - Distended. There is tenderness in the upper abdomen. Liver and spleen are not enlarged. There is no abdominal mass or ascites noted and there is no inguinal adenopathy, Extremities - Mild edema, Neurologic - No focal neurologic deficits noted. Lab/Imaging: Test performed on Jun 02, 2020 13:40 Lipase 14 U/L Sodium 138 mmol/L Potassium 4.1 mmol/L Chloride 100 mmol/L CO2 29 mmol/L Anion Gap 13.1 BUN 9 mg/dL Creatinine 0.7 mg/dL Cr Clearance (Est) 194.5500 mL/min eGFR 86.2 mL/min Glucose 348 mg/dL Osmolality - Calculated 299 mOsm/kg Calcium 9.1 mg/dL Protein, Total 6.5 g/dL Albumin 3.5 g/dL Globulin 3.0 g/dL Bilirubin, Total 0.2 mg/dL ALT (SGPT) 19 U/L AST (SGOT) 15 U/L Alkaline Phosphatase 113 IU/L WBC 10.0 10 3/uL RBC 5.07 10 6/uL HGB 13.7 g/dL HCT 43.6 % MCV 86.0 fL MCH 27.0 pg MCHC 31.4 g/dL RDW 14.6 % Platelet Count 325 10 3/cmm MPV 9.9 fL Neutrophils 6.47 10 3/uL Lymphocytes 2.5 10 3/uL Monocytes 0.5 10 3/uL Eosinophils 0.5 10 3/uL Basophils 0.0 10 3/uL Neutrophil % 65.0 % Lymphocyte % 24.6 % Monocyte % 4.9 % Eosinophil % 4.9 % Basophils % 0.3 % NRBC % 0 % Impression: 1. Patient with bilateral pulmonary emboli, unprovoked. 2. She had slightly low protein C and protein S activity. The clinical significance is uncertain. Her other medical illnesses include: 3. Hypertension. 4. Hyperlipidemia. 5. Type 2 diabetes, on insulin pump. 6. Coronary artery disease with previous angioplasty/stent placement. 7. Obstructive sleep apnea. 8. She has severe obesity. 9. GERD. 10. Degenerative arthritis and chronic back pain. 11. Osteoporosis. 12. Migraine headaches. 13. History of prior stroke. 14. Anxiety and depression. In the setting of a significant episode of unprovoked pulmonary embolism, she was recommended to continue anticoagulation indefinitely. She comes in now with multiple complaints, the most significant of which is worsening exertional dyspnea. She also reports having tightness in the area of her left shoulder blade with complaints of her left arm going numb. She has significant GI symptoms including epigastric pain, nausea/vomiting, and diarrhea. She has not had any obvious GI bleeding, though. Plan: She will continue anticoagulation with apixaban 5 mg twice daily. She will be scheduled for repeat CT pulmonary angiogram. I will request additional laboratory studies including a serum lipase level and hemoglobin A1c level. Signed By: Michael Daniel M.D. <<Signature on File>>
== END 2020-06-02 12:32 | disposition home or self-care (01) ==
LOC: ONCMED 12:34
PROVIDERS: PCP Family Medicine; Visit Provider Internal Medicine Medical Oncology
DX: I26.99 Other pulmonary embolism without acute cor pulmonale (principal); Z79.01 Long term (current) use of anticoagulants; I10 Essential (primary) hypertension; E78.5 Hyperlipidemia, unspecified; E11.9 Type 2 diabetes mellitus without complications; I25.10 Atherosclerotic heart disease of native coronary artery without angina pectoris; Z95.1 Presence of aortocoronary bypass graft; Z95.5 Presence of coronary angioplasty implant and graft; G47.33 Obstructive sleep apnea (adult) (pediatric); E66.9 Obesity, unspecified; K21.9 Gastro-esophageal reflux disease without esophagitis; M19.90 Unspecified osteoarthritis, unspecified site; M81.0 Age-related osteoporosis without current pathological fracture; G43.909 Migraine, unspecified, not intractable, without status migrainosus; Z86.73 Personal history of transient ischemic attack (TIA), and cerebral infarction without residual deficits; F41.8 Other specified anxiety disorders; Z68.43 Body mass index [BMI] 50.0-59.9, adult
CPT/HCPCS: 36415; 80053; 83036; 83690; 85025; 99213; 99214

== ENCOUNTER 2020-06-17 13:02 | Outpatient (CLI) | payer MEDICARE, MEDICAID, SELFPAY ==
--- NOTE | 2020-06-17 13:30 | CT_ITS ---
WS: [id number] CTA CHEST ABDOMEN AND PELVIS TECHNIQUE: Noncontrast plus contrast enhanced CTA of the chest, abdomen, and pelvis with coronal and sagittal reformatted images and additional MIP Images. CLINICAL INFORMATION: SHORTNESS OF BREATH, PAIN IN EPIGASTRIC AREA COMPARISON: CT abdomen and pelvis March 29, 2020, CTA chest 12/18/2019 and 12/13/2019 DLP: 2469.[address] scans at [facility] use at least one of these dose optimization techniques: automat ed exposure control; mA and/or kV adjustment per patient size (includes targeted exams where dose is matched to clinical indication); or iterative reconstruction. FINDINGS: Lungs are well aerated. No acute pulmonary infiltrates. Calcified Granulomas. Proximal main pulmonary arteries are normal. Normal caliber thoracic aorta. Segmental and subsegmental pulmonary a rteries are normal. No evidence of pulmonary embolus. No mediastinal or hilar lymphadenopathy. No axillary lymphadenopathy. Normal GE junction. Hepatomegaly with diffuse fatty infiltration of the liver. Calcified granulomas. Mild fatty atrophy o f the pancreas. Adrenal glands are normal. No hydronephrosis. Prominent right extrarenal pelvis. No o bstructing renal or ureteral calculi. Normal caliber abdominal aorta. No periaortic lymphadenopathy. A few sigmoid diverticuli. No evidence of acute diverticulitis. No evidence of small or large bowel o bstruction. Fat-containing umbilical hernia. Fat-containing right periumbilical hernia. Wide mouth ri ght ventral abdominal wall hernia measuring 4.7CM unchanged from previous. Herniated bowel without ev idence of obstruction. Prior hysterectomy. CT/CT angio chest w abd pel w con IMPRESSION: 1. No evidence of pulmonary embolus. 2. Lungs are well aerated. No mediastinal or hilar lymphadenopathy. 3. Hepatomegaly with diffuse fatty infiltration. 4. Normal renal parenchymal enhancement. No hydronephrosis. 5. [place] right ventral abdominal wall hernia with herniated bowel loops. N o evidence of obstruction. 6. No other significant changes compared to previous.
[2020-06-17] MEDS: iodixanol 320 mg/mL 100mL Btl IV (15:06)
== END 2020-06-17 13:03 | disposition home or self-care (01) ==
LOC: RADWPI 13:08
PROVIDERS: PCP Family Medicine; Visit Provider Internal Medicine Medical Oncology
DX: R10.13 Epigastric pain (principal); R06.02 Shortness of breath; I26.99 Other pulmonary embolism without acute cor pulmonale; R16.2 Hepatomegaly with splenomegaly, not elsewhere classified; K76.0 Fatty (change of) liver, not elsewhere classified
CPT/HCPCS: 71275; 74177; Q9967

== ENCOUNTER → 2020-07-08 11:22 | Outpatient (BNVA) | payer MEDICARE, MEDICAID, SELFPAY | PROVIDERS: PCP Family Medicine; Visit Provider Internal Medicine Cardiovascular Disease | DX: Z20.828 Contact with and (suspected) exposure to other viral communicable diseases (principal); I25.10 Atherosclerotic heart disease of native coronary artery without angina pectoris; R07.9 Chest pain, unspecified; Z01.818 Encounter for other preprocedural examination | CPT/HCPCS: 80048; 85025; 85610; 87635 ==

== ENCOUNTER 2020-07-24 13:13 | Outpatient (CLI) | payer MEDICARE, MEDICAID, SELFPAY ==
--- NOTE | 2020-07-24 14:30 | MM_ITS ---
WS: [id number] BILATERAL DIGITAL SCREENING MAMMOGRAPHY WITH CAD CLINICAL INFORMATION: Z12.31 - Encounter for screening mammogram for malignant neoplasm of breast HISTORY: Screening mammogram. No current complaints. COMPARISON: 018 TECHNIQUE: Bilateral CC and MLO views. FINDINGS: Scattered fibroglandular densities bilaterally. No suspicious focal mass, asymmetry, calcifications, or architectural distortion. No evidence of malignancy. Vascular calcification. Punctate and lucent c entered calcifications. MM/[id number] IMPRESSION: BI-RADS: 2-Benign FOLLOW UP: 1 Year Follow-up Recommend return to annual screening mammography.
== END 2020-07-24 13:14 | disposition home or self-care (01) ==
LOC: RADSHAW 13:18
PROVIDERS: PCP Family Medicine; Visit Provider Family Medicine
DX: E11.42 Type 2 diabetes mellitus with diabetic polyneuropathy (principal); Z79.4 Long term (current) use of insulin; E11.59 Type 2 diabetes mellitus with other circulatory complications; I25.10 Atherosclerotic heart disease of native coronary artery without angina pectoris; K76.0 Fatty (change of) liver, not elsewhere classified; N39.0 Urinary tract infection, site not specified; R31.9 Hematuria, unspecified; Z12.31 Encounter for screening mammogram for malignant neoplasm of breast
CPT/HCPCS: 77067; 81003; 87086; 88112; 99214

== ENCOUNTER → 2020-07-31 09:15 | Outpatient (BNVA) | payer MEDICARE, MEDICAID, SELFPAY | PROVIDERS: PCP Family Medicine; Visit Provider Internal Medicine Cardiovascular Disease | DX: Z20.822 Contact with and (suspected) exposure to COVID-19 (principal); M62.838 Other muscle spasm; I25.10 Atherosclerotic heart disease of native coronary artery without angina pectoris; R06.00 Dyspnea, unspecified; R07.9 Chest pain, unspecified; E11.59 Type 2 diabetes mellitus with other circulatory complications | CPT/HCPCS: 80048; 85025; 87635 ==

== ENCOUNTER 2020-08-10 11:00 | Observation (INO) | payer MEDICARE, MEDICAID, SELFPAY ==
--- NOTE | 2020-08-05 08:50 | PC.NURSE ---
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 Ynes RN in [facility] notified to reschedule patient and to call her with appointment.
[2020-08-07 09:32] VITALS: BMI 53.6
[2020-08-10] VITALS (28 sets, daily range): BP systolic 107–152; BP diastolic 52–114; PULSE 65–98; RESP 10–29; TEMP 36–36.8; O2SAT 92–100; BMI 53.6
[2020-08-10] MEDS: diphenhydrAMINE 50 mg Capsule PO (08:30)
--- NOTE | 2020-08-10 08:30 | XACV_ITS ---
Ht: 160 cm Wt: 131 kg BSA: 2.50 m2 Gender: Female : 1960 Any Known Allergies: Ibuprofen Exam Priority: Routine Procedure(s): Procedure Description: Diagnostic procedure Conclusions 1. Patient was brought in today for planned elective angiogram right wrist/radial approach was performed due to severe spasm of the right radial artery we aborted the procedure, since patient had mild pain in the arm I decided to wait for another 12-hour in case if there is a tiny perforation and I have to proceed with PCI I would like to avoid possibility of bleed and compartment syndrome.We will bring patient tomorrow to go from the right groin approach.. Clinical Evaluation EBL: 5mL-10mL Procedural Details Procedure Consent Obtained. Pre-Procedure Time Out. Identified patient by full name and date of as verbalized by the patient/guarantor. Does the consent match the physician's order: Yes. Accurate & Complete Informed Consent: Yes. Inpatient/Outpatient History & Physical on Chart: Yes. If H&P is completed, is and addenduem needed: N/A; If yes, is the addendum complete: N/A. Visualize and Verify Site with Patient/Guarantor: N/A. Relevant Radiology Images available: Yes. Pre-op teaching completed and patient verbalized understanding. The risks, benefits, and alternatives of sedation and/or procedure were discussed by physician. The patient agrees to continue. Procedure started. PERRLA. Strong, equal hand slip maker bilaterally. Lungs clear x 5 lobes. IV Site on Arrival: 20 gauge in the left anticubital. IV Fluids: 0.9% NaCl at KVO. 0 mL infused prior to crime laboratory analyst. Pre Procedural Pulses: bilateral dorsalis pedis was Doppled. Pre Procedural Pulses: bilateral posterior tibial was Doppled. Pre Procedural Pulses: right radial was 2+. Pre Procedural Pulses: left radial was 3+. Oxygen started at 2liters/min via nasal canula. right groin was prepped with chloroprep then draped in the usual sterile fashion. right radial was prepped with chloroprep then draped in the usual sterile fashion. Physician notified. Baseline sample Acquired. HR: 84 BPM. Equipment: 6F - Radial. Cardiac Cath Pack. ACIST Manifold Kit Model BT 2000. Heparinized Saline (2 units/mL), 1000 mL bag. Physician arrived. Physician scrubbed in. Immediate Pre-Procedure Time Out. Correct Patient: Yes; Correct Procedure: Yes; Correct Site: Yes; Correct Patient Position: Yes; Correct Supplies: Yes; Dried Flammable Prep: Yes; Blood Products Available: No;. Lidocaine 1% infiltrated to the right radial. Arterial access obtained. hand injection performed. A TR Band was successful obtaining hemostatsis at the Right Radial artery insertion site. TR band placed. Hemostasis obtained. Post Procedure: Pulses reassessed and unchanged. PERRLA. Strong, equal hand slip maker bilaterally. No VTE prophylaxis required. Fluoro: 0:04. Medication's Wasted: Nitro = 49.8 mg. Medication's Wasted: Lidocaine 1% = 18 mL. Medication's Wasted: Heparin = 6000 units. Medication's Wasted: Other = fentanyl 75 mcg. Total IV fluids: 20 mL. Estimated blood loss: 5mL-10mL. Procedure completed. Patient transferred by bed to 1st floor. Vital chart was stopped. Access Site Site: Right Radial artery Sheath Size: 6 Fr Hemostasis Method: TR Band Hemostasis Success: Successful Procedure Medications Start: 10:31 AM Stop: 10:31 AM Medication: Versed Amount: 2 mg Route: I.V. Start: 10:31 AM Stop: 10:31 AM Medication: Fentanyl Amount: 25 mcg Route: I.V. Start: 10:37 AM Stop: 10:37 AM Medication: Nitrogylcerin Amount: 200 mcg Route: I.A. I, the attending physician, have reviewed and verified all procedure medications. Yes, all medications given per verbal order History/Risk Factors Hypertension: Yes Tobacco Use: Never Prior Interventions PCI: Yes Report Signatures Finalized by Renay Quarles MD on 08/23/2020 04:27 PM
--- NOTE | 2020-08-10 10:08 | P.HP_ITS ---
Same Day Surgery H&P Indication for Procedure/HPI DATE OF PROCEDURE: August 10, 2020 CHIEF COMPLAINT/INDICATIONFOR SURGICAL PROCEDURE: Shortness of breath and chest pain. PREOP DIAGNOSIS: Unstable angina PLANNED PROCEDRUE: Operation Date: 08/10/20 10:00 Proposed Procedures p Cardiac Catheterization left(Left) - Renay Quarles MD 59-year-old female past medical history significant for hypertension hyperlipidemia coronary artery disease obstructive sleep apnea multiple stents including RCA circumflex LAD for worsening of shortness of breath and chest pain suggestive of angina was referred to us for left heart cath. Patient had a normal stress test but continues to do worse, Dr. Phelps, who is her primary building guard deputy sheriff suggested left heart cath since despite of optimization of medicine she was not getting better. It is the reason patient has been brought to the Resource Recovery Engineer. Patient has been explained all risk benefit and alternative for the procedure by myself. She understand the risk of major bleed, stroke, arrhythmia, hematoma, infection, . She would like to proceed with it. Medications/Allergies* Home Medications Medication Instructions Recorded Confirmed Type magnesium oxide 400 mg PO QAM 12/13/19 08/04/20 History aspirin 81 mg tablet,delayed 81 mg PO DAILY 06/11/20 08/04/20 History release Eliquis 5 mg PO BID 08/04/20 08/04/20 History Flovent Diskus 2 inh INHALATION BID 08/04/20 08/04/20 History amlodipine 7.5 mg PO QAM 08/04/20 08/10/20 History bupropion HCl 200 mg PO QPM 08/04/20 08/04/20 History buspirone 7.5 mg PO BID 08/04/20 08/04/20 History cetirizine 10 mg PO QAM 08/04/20 08/04/20 History cyanocobalamin (vitamin B-12) See Rx Instructions .ROUTE .COMPLEX 08/04/20 08/04/20 History fluconazole [Diflucan] 150 mg PO BID 08/04/20 08/04/20 History lisinopril 20 mg PO QPM 08/04/20 08/04/20 History metoprolol tartrate 50 mg PO BID 08/04/20 08/04/20 History Allergies/Adverse Reactions Allergy/AdvReac Type Severity Reaction Status Date / Time ciprofloxacin [From Cipro] Allergy hives Verified 01/29/21 09:30 citalopram Allergy effects Verified 08/07/20 09:30 speach and memory clopidogrel [From Plavix] Allergy unk Verified 08/07/20 09:30 ibuprofen Allergy RASH/ Verified 08/07/20 09:30 SWELLING morphine Allergy ITCHING Verified 08/07/20 09:30 famotidine AdvReac Mild itching Verified 08/07/20 09:30 esomeprazole [From Nexium] AdvReac Unknown Verified 08/07/20 09:30 Current Medications: Generic Name Dose Route Start Last Admin Trade Name Freq PRN Reason Stop Dose Admin Sodium Chloride 1,000 mls @ 50 mls/hr 08/10/20 07:30 08/10/20 08:30 Sodium Chloride 0.9% IV 08/11/20 03:29 Not Given .Q20H ONE Pertinent History/Comorbid Conditions* Medical History (Updated 07/25/20 @ 08:40 by Freddy Hendrix MD) Bilateral lower extremity edema CAD (coronary artery disease) Chronic cystitis Chronic low back pain Constipation CVA (cerebral vascular accident) DM type 2 (diabetes mellitus, type 2) GERD (gastroesophageal reflux disease) Gross hematuria HTN (hypertension) Long-term use of high-risk medication Migraine headache Morbid obesity Opioid contract exists BETH (obstructive sleep apnea) Osteoporosis RLS (restless legs syndrome) Surgical History (Updated 07/25/20 @ 08:40 by Freddy Hendrix MD) H/O heart artery stent History of partial surgical removal of colon Hx of total knee replacement S/P appendectomy S/P cholecystectomy S/P hysterectomy S/P tonsillectomy and adenoidectomy Family History (Updated 06/25/20 @ 14:23 by JANES Tolliver) Diabetes Family/Other CAD (coronary artery disease) Mother Father Sister Brother Myocardial infarct Family/Other MOTHER, FATHER, BROTHER, SISTER Cancer Grandfather Hypertension Family/Other Stroke Denies family history of Anesthesia complication Bleeding disorder Social History Smoking and tobacco status: never smoked Alcohol intake: never Lives independently: Yes Marital status: Current occupational status: unemployed Pertinent Exam Findings alert, oriented x 3, clear to auscultation bilaterally and regular rate & rhythm Conscious Sedation Assessment PATIENT ASSESSED PRIOR TO SEDATION, WITH NO CHANGE NOTED: Yes AIRWAY EVAL/ANESTHESIA PLAN: ASA II, Risks, benefits & alternatives of sedation and/or procedure discussed and Patient agrees to continue as planned Recommendations Surgery/Procedure today Coding Level of Care Code Acute [employer] Social Worker for Romie Everett
--- NOTE | 2020-08-10 10:58 | PM.PN ---
Subjective Subjective: Interval history: Patient was brought into perform left heart cath, right radial artery is a small caliber size vessel with much spasm. With suspicion of possible micro perforation which was not seen on injection I postponed the procedure through the groin for tomorrow as if there is microperforation upon giving him anticoagulation she may can develop hematoma and in worse case scenario compartment syndrome. Since it is an elective procedure I will wait for 24 more hour to proceed to groin. For now we will admit the patient for observation overnight. Vitals/I&O/Wt Last Vital Signs Temp 98.3 F 08/10/20 09:17 Pulse 95 08/10/20 09:17 Resp 18 08/10/20 09:17 BP 148/114 08/10/20 09:17 Pulse Ox 96 08/10/20 09:17 Weight last 48 hrs Weight 303 lb Physical Exam Narrative: EXAM NARRATIVE: GENERAL: Patient is alert, awake and oriented x3. NECK: No jugular vein distension. HEENT: No cyanosis. No icterus. No pallor. HEART: Regular S1 and S2. No murmur, rub or gallop. LUNGS: Clear to auscultate bilaterally. ABDOMEN: Soft, nontender and nondistended. Positive bowel sounds. No guarding, rebound or tenderness. CENTRAL NERVOUS SYSTEM: Grossly nonfocal. EXTREMITIES: Lower extremities without edema bilaterally. A&P Assessment and plan (1) CAD (coronary artery disease): Patient has possible unstable angina for which she was to undergo left heart cath but due to right radial spasm and difficult access there is always a chance of microperforation since this is a elective procedure I would like to proceed with right groin tomorrow Status: Acute Qualifiers: Coronary Disease-Associated Artery/Lesion type: [place] artery [place] vs. transplanted heart: [place] heart Associated angina: angina presence unspecified Qualified Code(s): I25.10 - Atherosclerotic heart disease of [place] coronary artery without angina pectoris (2) DM type 2 (diabetes mellitus, type 2): Sliding scale insulin hold oral hypoglycemics Status: Chronic Qualifiers: Diabetes mellitus supervisor intermediates insulin use: without fdc use Diabetes mellitus complication status: without complication Qualified Code(s): E11.9 - Type 2 diabetes mellitus without complications (3) Pulmonary embolism, bilateral: Eliquis is on hold. Will anticoagulate after 8 hours due to possible suspicion of perforation of radial vessel. Status: Acute Attestations Medical Necessity Statement*: Patient will be requiring observation overnight for possible cath tomorrow Coding Level of Care Code Established Pt Acute Environmental Engineering Assistant for Meghanng Fwd Patient Type Established History Detailed Exam Detailed Medical Decision Making Moderate Complexity Diagnoses CAD (coronary artery disease) I25.10 Coronary Disease-Associated Artery/Lesion type: [place] artery [place] vs. transplanted heart: [place] heart Associated angina: angina presence unspecified DM type 2 (diabetes mellitus, type 2) E11.9 Diabetes mellitus supervisor intermediates insulin use: without fdc use Diabetes mellitus complication status: without complication Pulmonary embolism, bilateral I26.99
[2020-08-10 11:14] LABS: Glucose Point of Care 357 mg/dL (70-110)
[2020-08-10 15:59] LABS: Glucose Point of Care 265 mg/dL (70-110)
[2020-08-10] MEDS: buPROPion SR (12 HR) 100 mg Tablet 200 MG PO (17:47)
[2020-08-10] MEDS: isosorbide mononitrate ER 30 mg Tablet PO (17:48)
[2020-08-10] MEDS: sulfamethoxazole-trimeth DS 160-800 mg Tablet 1 TAB PO (17:48)
[2020-08-10] MEDS: BuSPIRONE 5 mg Tablet 7.5 MG PO (17:49)
[2020-08-10] MEDS: fluconazole 100 mg Tablet 150 MG PO (17:51)
[2020-08-10] MEDS: lisinopril 20 mg Tablet PO (17:52)
[2020-08-10] MEDS: metoprolol tartrate 50 mg Tablet PO (17:52)
--- NOTE | 2020-08-10 19:38 | PC.NURSE ---
Received report from Chika Mckeon RN. Patient is s/p LHC attempted right wrist access. Dressing in place remains c,d,i with no s/s of bleeding or hematoma formation observed. Discussed C scheduled for 08/10/20 and patient verbalized understanding. Assisted patient up to bathroom. Patient able to ambulate well. Patient denies pain or other needs. No distress observed.
[2020-08-10 20:16] LABS: Glucose Point of Care 208 mg/dL (70-110)
[2020-08-11] VITALS (56 sets, daily range): BP systolic 118–168; BP diastolic 52–111; PULSE 65–100; RESP 16–38; TEMP 36.3–36.7; O2SAT 90–98
[2020-08-11] MEDS: ALPRAZolam 0.25 mg Tablet PO (03:27)
--- NOTE | 2020-08-11 03:28 | PC.NURSE ---
Patient c/o severe pain to right forearm/wrist. No s/s of bleeding or hematoma formation observed. Right extremity warm, pink and with palpable pulse. Patient is weeping with pain. Provided Xanax as ordered. Patient expressed thanks. Up to bathroom.
[2020-08-11] MEDS: amlodipine 5 mg Tablet 7.5 MG PO (05:04)
[2020-08-11] MEDS: atorvastatin 40 mg Tablet PO (05:04)
[2020-08-11] MEDS: cetirizine 10 mg Tablet PO (05:04)
--- NOTE | 2020-08-11 06:27 | XACV_ITS ---
Exam Room: [facility] Ht: 160 cm Wt: 137 kg BSA: 2.56 m2 Gender: Female : 1960 Any Known Allergies: Ibuprofen Exam Priority: Routine Procedure(s): Procedure Description: Diagnostic procedure Procedure Description: PCI procedure Procedure Description: Left Heart Catheterization Procedure Description: Drug Eluting Coronary Stent Procedure Description: PTCA Diagnostic Cath Status: Elective Diagnostic Findings * LM has 0% stenosis. * CX has 0% stenosis. * mLAD: Mild 30% stenosis, ERICK: 3 flow. * Second Obtuse Marginal Branch Segment: Severe 80% stenosis, ERICK: 0 flow. * pRCA: Mild 30% stenosis, ERICK: 3 flow. * mRCA: Mild 30% stenosis, ERICK: 3 flow. * dRCA: Mild 30% stenosis, ERICK: 3 flow. * Coronary angiography shows right dominance. PCI Status: Elective PCI Indication: New Onset Angina <= 2 months Interventional Findings * Second Obtuse Marginal Branch Segment: 80% stenosis treated with MDT Zaina MILTON 2.75X15 JORDIN and MDT ARLENE EUPHORA RX [id number] BALLOON. 0% residual stenosis, ERICK: 3 flow. Conclusions 1. There is mild coronary artery disease with two vessel disease. 2. Second Obtuse Marginal Branch Segment was treated with Drug Eluting Stent and Balloon. 3. Indication for left heart cath: Worsening of chest pain but shortness of breath suspicious for angina despite of maximization of medicine.IFRIFR: After equalizing the distal and proximal pressure of IFR wire proximal to the lesion, mid OM-2 lesion was crossed with IFR wire. IFR but after waiting for couple of minute was noted to be 0.87 which is significant. We proceeded with PCI using drug-eluting stent.. Recommendations * 1-Return to inpatient for close monitoring and routine cath care 2-Risk factor modification for secondary prevention 3-Statin and aspirin 81 mg life--long, if tolerated 4-Patient was pre-loaded with 600 mg of Plavix, continue Plavix 75mg p.o. daily for at least one year. We will assess at the end of one year again to continue if further or not 5-Continue optimal medical management 6-Follow up with cardiology in four weeks and your primary care in 10 days. Diagnostic RX Recommendation: PCI w/o planned CABG Pressures Phase:Rest AO : 102 / 50 ( 72 ) @ 3:21:00 AM 112 / 55 ( 78 ) @ 3:22:00 AM Clinical Evaluation EBL: 5mL-10mL Procedural Details Procedure Consent Obtained. Admit Source: Out Patient. Pre-Procedure Time Out. Identified patient by full name and date of as verbalized by the patient/guarantor. Does the consent match the physician's order: Yes. Accurate & Complete Informed Consent: Yes. Inpatient/Outpatient History & Physical on Chart: Yes. If H&P is completed, is and addenduem needed: No; If yes, is the addendum complete: N/A. Visualize and Verify Site with Patient/Guarantor: N/A. Relevant Radiology Images available: N/A. Pre-op teaching completed and patient verbalized understanding. The risks, benefits, and alternatives of sedation and/or procedure were discussed by physician. The patient agrees to continue. Procedure started. Correct patient, site and procedure confirmed by cath team. PERRLA. Strong, equal hand institutional custodian bilaterally. Lungs clear x 5 lobes. IV Site on Arrival: 20 gauge in the left anticubital. Oxygen started at 2liters/min via nasal canula. bilateral groins was prepped with chloroprep then draped in the usual sterile fashion. right radial was prepped with chloroprep then draped in the usual sterile fashion. Baseline sample Acquired. HR: 70 BPM. Physician notified. Physician arrived. Physician scrubbed in. Immediate Pre-Procedure Time Out. Correct Patient: Yes; Correct Procedure: Yes; Correct Site: Yes; Correct Patient Position: Yes; Correct Supplies: Yes; Dried Flammable Prep: Yes; Blood Products Available: N/A;. Lidocaine 1% infiltrated to the right groin. Arterial access obtained with micropuncture set. A 6 nauruan JL4 catheter in over wire. wire out. Multiple views taken of left coronary artery. Catheter out. A 6 nauruan JR4 catheter in over wire. Multiple views taken of right coronary artery. Catheter out. 6 nauruan XB 3 guide catheter was inserted over the wire. wire out. FFR wire inserted. FFR wire out. [place] repositioned to mid OM. Inflation Number : 1 A ARELI Mahajan MILTON 2.75X15 JORDIN -Lot Number# [id number] exp date: 04-02-2022 was prepped and advanced across the 2nd Ob Eliane. The stent was deployed at 16 RICHI for 0:27 seconds. Results checked. ACT drawn. Results 163 seconds. Therapeutic limits - pre-heparin administration 90-150 seconds and monitoring heparin during a vascular procedure >250 seconds. Stent balloon out over wire. Inflation number : 2 A ARLEI JACOBS EUPHORA RX [id number] BALLOON was prepped and advanced across the 2nd Ob Eliane , then inflated to 14 RICHI for 0:30 seconds. Balloon out. Wire out. Results checked. catheter out. hand injection performed. Results checked. Sheath(s) sutured into position with 2-0 silk and sterile 4x4's and Op-site applied over the site. No oozing or signs and symptoms of hematoma noted. Post Procedure: Pulses reassessed and unchanged. PERRLA. Strong, equal hand institutional custodian bilaterally. No VTE prophylaxis required. ACT drawn. Results 203 seconds. Therapeutic limits - pre-heparin administration 90-150 seconds and monitoring heparin during a vascular procedure >250 seconds. Medication's Wasted: Heparin = 3000 units. Total IV fluids: 150 mL. Contrast type used: Omnipaque 300 mgI/mL, 500 mL bottle. Contrast Material : Omnipaque 228 ml. [facility] Clinical Fraility Score: 3: Managing Well. Front Desk Specialist Indications: New Onset Angina. Chest Pain Symptom Assessment: Typical Angina Symptoms. Cardiovascular Instability: No,. PCI Indication: New Onset Angina. Post-op diagnosis: PCI to OM2. Complications: none. Estimated blood loss: 5mL-10mL. Procedure completed. A Suture was successful obtaining hemostatsis at the Right Femoral artery insertion site. Patient transferred by bed to 1st floor. Vital chart was stopped. Access Site Site: Right Femoral artery Sheath Size: 6 Fr Hemostasis Method: Suture Hemostasis Success: Successful Procedure Medications Start: 8:53 AM Stop: 8:53 AM Medication: Versed Amount: 2 mg Route: I.V. Start: 8:53 AM Stop: 8:53 AM Medication: Fentanyl Amount: 25 mcg Route: I.V. Start: 9:04 AM Stop: 9:04 AM Medication: Fentanyl Amount: 50 mcg Route: I.V. Start: 9:13 AM Stop: 9:13 AM Medication: Fentanyl Amount: 25 mcg Route: I.V. Start: 9:28 AM Stop: 9:28 AM Medication: Heparin Amount: 7000 units Route: I.V. Start: 9:47 AM Stop: 9:47 AM Medication: Versed Amount: 2 mg Route: I.V. Start: 9:58 AM Stop: 9:58 AM Medication: Aggrastat 12.5 mg/250 mL Amount: 70 ml Route: I.V. bolus Start: 9:58 AM Stop: 9:58 AM Medication: Aggrastat 12.5 mg/250 mL Amount: 25.2 ml/hr Route: I.V. drip Start: 10:00 AM Stop: 10:00 AM Medication: Versed Amount: 2 mg Route: I.V. Start: 10:07 AM Stop: 10:07 AM Medication: Heparin Amount: 2000 units Route: I.V. I, the attending physician, have reviewed and verified all procedure medications. Yes, all medications given per verbal order History/Risk Factors Hypertension: Yes Tobacco Use: Never Prior Interventions PCI: Yes Report Signatures Finalized by Renay Quarles MD on 08/23/2020 04:52 PM
[2020-08-11 06:46] LABS: Glucose Point of Care 236 mg/dL (70-110)
--- NOTE | 2020-08-11 07:25 | PC.NURSE ---
PER DR CROCKETT, PLEASE HOLD MORNING DOSE OF INSULIN.
--- NOTE | 2020-08-11 09:24 | PC.CHAP ---
Pastoral Care Encounter/Spiritual Assessment Type of Contact [] Declined burglary investigator visit [] Patient/Family/Request visit [] Outpatient visit [] Follow-up visit [] Physician referral [] Code/Alert [x] Routine visit [] Staff referral [] Actively dying [] Patient sleeping [] Family support [] [x] Out of room [] Palliative care [] [] Receiving care in room [] Pre-surgical visit [] Trauma [] Long length of stay [] ICU visit [x Other: testing Relational/Emotional Strength [] Patient feels connected with others/family/visitors/staff [] Distress [] Loneliness/isolation [] Abandonment Spirituality of Patient [] Person of Lizette [] Attends Islam of their Lizette [] Believes in Prayer [] Reads Bible or Latter-Day materials [] There are Spiritual issues to be addressed Roller Cleaner Interventions [x] Prayer [] Active listening [] Non-anxious presence [] Spiritual/emotional support [] Crisis/trauma care [] Spiritual counseling [] Bereavement support [] Provided bereavement packet [] Provided Bible/devotional materials [] Provided toy/stuffed animal, coloring book to patient or family member [] Provided Communion [] Anointing/Mabel [] Salvation [x] Completed spiritual assessment [] Other: Impact on Illness or Injury [] Angry [] Fearful [] Anxious [] Often cries [] Exhaustion [] Unable to work [] Unable to attend jain [] Unable to walk/stand [] Unable to read [] Unable to drive [] Unable to eat/drink [] Unable to sleep [] Unable to be with family [] Patient intubated [] Other: Summary Time spent with patient
--- NOTE | 2020-08-11 10:40 | W.PM.OPSUD ---
Surgery/Procedure H&P Update DATE OF PROCEDURE: August 11, 2020 DATE H&P PERFORMED: 08/10/20 H&P UPDATE INFORMATION: I have reviewed H&P completed within last 30 days, I have examined patient prior to procedure, No changes to prior documentation and Changes to prior documentation as noted here PREOP DIAGNOSIS: Unstable angina PLANNED PROCEDURE: Operation Date: 08/10/20 10:00 Proposed Procedures p Cardiac Catheterization left(Left) - Renay Quarles MD Operation Date: 08/11/20 08:30 Proposed Procedures p Cardiac Catheterization(Left) - Renay Quarles MD PATIENT REASSESSED PRIOR TO SEDATION, WITH NO CHANGE NOTED: Yes PHYSICAL EXAM: alert, oriented x 3, clear to auscultation bilaterally and regular rate & rhythm AIRWAY EVAL/ANESTHESIA PLAN: ASA II, Risks, benefits & alternatives of sedation and/or procedure discussed and Patient agrees to continue as planned
--- NOTE | 2020-08-11 10:44 | PM.PN ---
Subjective Subjective: Interval history: Patient underwent right groin approach coronary angiogram. Previously placed stents were patent, moderate to severe lesion was noted in obtuse marginal mid segment which is moderate size and caliber vessel, IFR was performed turned out to be abnormal, it was treated with 2.75 x 15 mm Umair integrity stent postdilated with 3.0x12 noncompliant balloon. Excellent angiographic result with ERICK-3 flow was achieved. Vitals/I&O/Wt Last Vital Signs Temp 98.0 F 08/11/20 07:24 Pulse 68 08/11/20 07:24 Resp 20 H 08/11/20 07:24 BP 118/59 08/11/20 07:24 Pulse Ox 91 08/11/20 07:24 08/10/20 08/11/20 08/11/20 22:59 06:59 14:59 Intake Total 360 / 720 Balance 360 / 720 Weight last 48 hrs Weight 303 lb Physical Exam Narrative: EXAM NARRATIVE: GENERAL: Patient is alert, awake and oriented x3. NECK: No jugular vein distension. HEENT: No cyanosis. No icterus. No pallor. HEART: Regular S1 and S2. No murmur, rub or gallop. LUNGS: Clear to auscultate bilaterally. ABDOMEN: Soft, nontender and nondistended. Positive bowel sounds. No guarding, rebound or tenderness. CENTRAL NERVOUS SYSTEM: Grossly nonfocal. EXTREMITIES: Lower extremities without edema bilaterally. Const: COMMON NORMALS: alert Resp: COMMON NORMALS: clear to auscultation bilaterally AUSCULTATION: clear to auscultation bilaterally Neuro: SENSORIUM/ORIENTATION: Yes alert A&P Assessment and plan (1) CAD (coronary artery disease): Coronary angiogram was performed, drug-eluting stent to mid obtuse marginal 2 was placed. Patient has history of allergy with rash for clopidogrel, she is on apixaban for pulmonary embolism. I would therefore choose ticagrelor without aspirin for 6-month. After 6-month we will stop ticagrelor and continue apixaban with aspirin. Status: Acute Qualifiers: Coronary Disease-Associated Artery/Lesion type: [place] artery [place] vs. transplanted heart: [place] heart Associated angina: angina presence unspecified Qualified Code(s): I25.10 - Atherosclerotic heart disease of [place] coronary artery without angina pectoris (2) DM type 2 (diabetes mellitus, type 2): Sliding scale insulin hold oral hypoglycemics Status: Chronic Qualifiers: Diabetes mellitus intermodal dispatcher insulin use: without group home use Diabetes mellitus complication status: without complication Qualified Code(s): E11.9 - Type 2 diabetes mellitus without complications (3) Pulmonary embolism, bilateral: Eliquis is on hold. Will anticoagulate after 8 hours due to possible suspicion of perforation of radial vessel. Status: Acute Attestations Medical Necessity Statement*: Require continuation hospitalization post PCI Coding Level of Care Code Established Pt Acute Calibration Checker for g Fwd Patient Type Established History Detailed Exam Detailed Medical Decision Making Moderate Complexity Diagnoses CAD (coronary artery disease) I25.10 Coronary Disease-Associated Artery/Lesion type: [place] artery [place] vs. transplanted heart: [place] heart Associated angina: angina presence unspecified DM type 2 (diabetes mellitus, type 2) E11.9 Diabetes mellitus group home insulin use: without group home use Diabetes mellitus complication status: without complication Pulmonary embolism, bilateral I26.99
[2020-08-11] MEDS: ticagrelor 90 mg Tablet 180 MG PO (10:56)
[2020-08-11 11:02] LABS: Glucose Point of Care 279 mg/dL (70-110)
[2020-08-11 16:18] LABS: Glucose Point of Care 283 mg/dL (70-110)
--- NOTE | 2020-08-11 16:25 | PC.PHAR ---
PT STATES SHE TAKES CARE OF HER OWN MEDICATIONS-PT STATES JARDIANCE WAS DCED-[facility]-TOMASA AT OFFICE STATES THIS MEDICATION HASNT BEEN DCED-TOMASA FROM THE [facility] LOOKED IN OFFICE NOTES OF [facility] AND STATES SHE DIDNT SEE WHERE IT WAS DCED-PT STATES SHE WAS TOLD TO TAKE NOVOLOG 34UNITS QAM,NOON,QPM,AND BEDTIME-STATES THE DR TOLD HER TO COME TO HER APPT ON Aug AND BRING THE PUMP RX WRITTEN ON 08/07/2020 FOR PUMP DIRECTED MAX OF 2580 UNITS PER MONTH AND THEY WOULD SET IT UP FOR HER-PER TOMASA AT DR PERSON OFFICE THEY DONT TAKE CARE OF THE PUMP-AMLODIPINE 5MG EXT MED HISTORY SHOWS 5MG DAILY ON 06/30/2020 30D/S-PT STATES THE DR MAZA INCREASED TO 7.5MG DAILY-CHRISTINA BRIGHT AT [facility] STATES IT IS 7.5MG DAILY-pt states she didnt understand what every 12 hours was ON HER BUPROPION SR 200MG-so she just takes one tab once a day-ext med history shows last filled on 06/30/20 30d/s FOR 200MG [id number] WAS WRITTEN 06/30/20 30D/S) 10MG PO QAM-PT TAKES 20MG PO BEDTIME
[2020-08-11] MEDS: BuSPIRONE 5 mg Tablet 7.5 MG PO (17:42)
[2020-08-11] MEDS: buPROPion SR (12 HR) 100 mg Tablet 200 MG PO (17:42)
[2020-08-11] MEDS: sulfamethoxazole-trimeth DS 160-800 mg Tablet 1 TAB PO (17:42)
[2020-08-11] MEDS: fluconazole 100 mg Tablet 150 MG PO (17:42)
[2020-08-11] MEDS: lisinopril 20 mg Tablet PO (17:42)
[2020-08-11] MEDS: ticagrelor 90 mg Tablet PO (17:42)
[2020-08-11] MEDS: isosorbide mononitrate ER 30 mg Tablet PO (17:43)
[2020-08-11] MEDS: metoprolol tartrate 50 mg Tablet PO (17:43)
--- NOTE | 2020-08-11 18:43 | PC.NURSE ---
ARTERIAL SHEATH FROM THE RIGHT FEMORAL PULLED AT 1430 PER AKIRA ROONEY RN. PRESSURE HELD FOR 20 MINUTES. NO HEMATOMA DEVELOPMENT NOTED. VITAL SIGNS STABLE THROUGHOUT PROCEDURE.
--- NOTE | 2020-08-11 19:34 | PC.NURSE ---
Received report from Chika Mckeon RN. Patient resting in bed talking on phone. Patient is s/p [facility] with right femoral access. Dressing in placed remain c,d,i. No s/s of bleeding or hematoma formation observed. Instructed patient on site care and time she may start moving around which is at 2030. Patient verbalized complete understanding. Patient denies needs or pain at this time. No distress observed.
--- NOTE | 2020-08-11 20:44 | PC.NURSE ---
Patient up to ambulate to bathroom. Dressing to right groin remains c,d,i with no s/s of bleeding or hematoma formation observed. Complete linen change done. Patient set up to give self bath at bedside. Patient tolerated well. Gown changed.
[2020-08-11 21:38] LABS: Glucose Point of Care 308 mg/dL (70-110)
[2020-08-12 00:09] VITALS: BP 132/61; PULSE 65; RESP 22; TEMP 36.8; O2SAT 96
[2020-08-12] MEDS: atorvastatin 40 mg Tablet PO (05:06)
[2020-08-12] MEDS: cetirizine 10 mg Tablet PO (05:06)
[2020-08-12] MEDS: amlodipine 5 mg Tablet 7.5 MG PO (05:06)
--- NOTE | 2020-08-12 05:10 | PC.NURSE ---
Patient reports IV is falling out . Dressing is loose and IV is found intact. Removed IV per patient request. Patient stated, I am supposed to go home today. Refusing to have new IV started at this time. Dressing to right groin remain c,d,i with no s/s of bleeding or hematoma formation observed. Patient denies pain to site.
[2020-08-12 05:11] LABS: Basophils % 0.2 %; Eosinophils # 0.3 10^3/uL (0.0-0.8); Eosinophils % 2.7 %; Hematocrit 39.4 % (37.0-47.0); Hemoglobin 12.5 g/dL (11.5-15.3); Lymphocytes # 3.3 10^3/uL (0.8-4.8); Lymphocytes % 26.6 %; Mean Corpuscular HGB Conc 31.7 g/dL (30.0-36.0); Mean Corpuscular Hemoglobin 27.1 pg (28.0-34.0); Mean Corpuscular Volume 85.3 fL (81-99); Mean Platelet Volume 9.7 fL (7.4-10.4); Monocytes # 0.8 10^3/uL (0.2-0.9); Monocytes % 6.1 %; Neutrophils # 7.85 10^3/uL (1.8-7.7); Nucleated Red Blood Cells % 0 %; Platelet Count 318 10^3/cmm (130-400); Red Blood Count 4.62 10^6/uL (4.1-5.3); Red Cell Distribution Width 14.5 % (12.1-15.1); White Blood Count 12.3 10^3/uL (4.0-10.0)
[2020-08-12 05:16] VITALS: BP 143/66; PULSE 70; RESP 19; TEMP 36.6; O2SAT 95
[2020-08-12 05:36] VITALS: PULSE 70
[2020-08-12 05:42] LABS: Anion Gap 13.3 (5-19); Blood Urea Nitrogen 12 mg/dL (6-20); Calcium 8.5 mg/dL (8.5-10.5); Carbon Dioxide 25 mmol/L (22-29); Chloride 103 mmol/L (98-107); Glucose 201 mg/dL (65-115); Osmolality Calculated 289 mOsm/kg (285-295); Potassium 4.3 mmol/L (3.5-5.1); Sodium 137 mmol/L (136-145)
[2020-08-12 06:41] LABS: Glucose Point of Care 239 mg/dL (70-110)
[2020-08-12] MEDS: BuSPIRONE 5 mg Tablet 7.5 MG PO (08:12)
[2020-08-12] MEDS: isosorbide mononitrate ER 30 mg Tablet PO (08:13)
[2020-08-12] MEDS: ticagrelor 90 mg Tablet PO (08:13)
[2020-08-12] MEDS: metoprolol tartrate 50 mg Tablet PO (08:14)
[2020-08-12] MEDS: sulfamethoxazole-trimeth DS 160-800 mg Tablet 1 TAB PO (08:14)
[2020-08-12] MEDS: fluconazole 100 mg Tablet 150 MG PO (08:14)
[2020-08-12 09:15] VITALS: PULSE 75; RESP 18; O2SAT 93
[2020-08-12 11:13] LABS: Glucose Point of Care 217 mg/dL (70-110)
[2020-08-12 14:00] VITALS: PULSE 69
--- NOTE | 2020-08-12 14:54 | PM.DCS ---
Discharge Providers Date of Admission: 08/10/20 11:00 Date of Discharge: August 12, 2020 Attending Provider at Admission: Renay Quarles MD Attending Provider at Discharge: Renay Quarles MD Primary Care Provider: Michelle Billy MD Diagnoses at Discharge Discharge Diagnosis (1) CAD (coronary artery disease): Status: Acute Qualifiers: Associated angina: angina presence unspecified Coronary Disease-Associated Artery/Lesion type: [place] artery [place] vs. transplanted heart: [place] heart Qualified Code(s): I25.10 - Atherosclerotic heart disease of [place] coronary artery without angina pectoris (2) DM type 2 (diabetes mellitus, type 2): Status: Chronic Qualifiers: Diabetes mellitus complication status: without complication Diabetes mellitus chcf insulin use: without terminal makeup operator use Qualified Code(s): E11.9 - Type 2 diabetes mellitus without complications (3) Pulmonary embolism, bilateral: Status: Acute Reason for Visit Reason for Visit: cath Hospital Course Hospital Course 59-year-old female past medical history significant for hypertension diabetes mellitus hyperlipidemia coronary artery disease history of stents for worsening of chest pain shortness of breath despite optimization of medicine underwent left heart cath. She was noted to have mid OM 2 moderate to severe stenosis, IFR was performed which turned out to be 0.86 significant treated with drug-eluting stents. Please note that on the day of admission we tried to go through right wrist but due to severe spasm and difficult access we stepped back and took the patient off the table for observation to watch for any bleeding in the arm in case of radial artery perforation which could have lead to compartment syndrome. Patient did not develop any hematoma next morning she was brought again to the Practicing Dermatologist through right groin approach. She was noted to have mid obtuse marginal 2 vessel moderate to severe stenosis IFR was positive at 0.86 it was treated with drug-eluting stent. Patient post PCI did not have any complications post PCI. This morning she is walking around without any complication there is no hematoma. She is being discharged home. Physical Exam Narrative: EXAM NARRATIVE: GENERAL: Patient is alert, awake and oriented x3. NECK: No jugular vein distension. HEENT: No cyanosis. No icterus. No pallor. HEART: Regular S1 and S2. No murmur, rub or gallop. LUNGS: Clear to auscultate bilaterally. ABDOMEN: Soft, nontender and nondistended. Positive bowel sounds. No guarding, rebound or tenderness. CENTRAL NERVOUS SYSTEM: Grossly nonfocal. EXTREMITIES: Lower extremities without edema bilaterally. Const: COMMON NORMALS: alert Resp: COMMON NORMALS: clear to auscultation bilaterally AUSCULTATION: clear to auscultation bilaterally Neuro: SENSORIUM/ORIENTATION: Yes alert Discharge Data Data Completed and Pending: Pending at discharge Category Date Time Status SLICE PLUG CUTTER OPERATOR HELPER request for service Routin e Exams 08/10/20 08:30 Taken SLICE PLUG CUTTER OPERATOR HELPER request for service Routin e Exams 08/11/20 06:27 Taken Labs from last 24 hours 08/12/20 08/12/20 08/12/20 11:07 06:38 04:26 WBC RBC Hgb Hct MCV MCH MCHC RDW Plt Count MPV Neut % (Auto) Lymph % (Auto) [place] % (Auto) Eos % (Auto) Baso % (Auto) Neut # (Auto) Lymph # (Auto) [place] # (Auto) Eos # (Auto) Baso # (Auto) Nucleated RBC % (a uto) Nucleated RBCs # Sodium 137 Potassium 4.3 Chloride 103 Carbon Dioxide 25 Anion Gap 13.3 BUN 12 Creatinine 0.6 GFR Calculation 103.0 Glucose 201 H POC Glucose 217 H 239 H Calculated Osmolal ity 289 Calcium 8.5 08/12/20 08/11/20 08/11/20 04:26 19:30 16:12 WBC 12.3 H RBC 4.62 Hgb 12.5 Hct 39.4 MCV 85.3 MCH 27.1 L MCHC 31.7 RDW 14.5 Plt Count 318 MPV 9.7 Neut % (Auto) 64.0 Lymph % (Auto) 26.6 [place] % (Auto) 6.1 Eos % (Auto) 2.7 Baso % (Auto) 0.2 Neut # (Auto) 7.85 H Lymph # (Auto) 3.3 [place] # (Auto) 0.8 Eos # (Auto) 0.3 Baso # (Auto) 0.0 Nucleated RBC % (a uto) 0 Nucleated RBCs # 0.0 Sodium Potassium Chloride Carbon Dioxide Anion Gap BUN Creatinine GFR Calculation Glucose POC Glucose 308 H 283 H Calculated Osmolal ity Calcium Vitals: Last Vital Signs Temp 98 F 08/12/20 05:16 Pulse 75 08/12/20 09:15 Resp 18 08/12/20 09:15 BP 143/66 08/12/20 05:16 Pulse Ox 93 08/12/20 09:15 Discharge Plan Discharge Patient Disposition: Home Condition: Stable Prescriptions: New Brilinta 90 mg Tablet 90 mg PO BID Qty: 180 RF: 4 Continued isosorbide mononitrate 30 mg tablet extended release 24 hr 30 mg PO BID Qty: 60 RF: 3 (DME) walker with seat and brakes See Rx Instructions .Route .MEDSUPPLY Qty: 1 RF: 0 (DME) diabetic shoes and inserts See Rx Instructions .Route .MEDSUPPLY Qty: 1 RF: 0 hydrocodone-acetaminophen 10-325 mg tablet 1 tab PO Q6H PRN (Reason: pain) 30 Days Qty: 120 RF: 0 (DME) pen needle, diabetic [Comfort EZ Pen Emerson] 31 gauge x 5/16 needle See Rx Instructions .ROUTE .MEDSUPPLY Qty: 100 RF: 5 (DME) Assure ID Insulin Safety 1 mL 29 gauge x 1/2 syringe See Rx Instructions .ROUTE .MEDSUPPLY Qty: 100 RF: 5 sulfamethoxazole-trimethoprim 800-160 mg tablet 1 tab PO BID Qty: 60 RF: 4 cyclobenzaprine 10 mg tablet 10 mg PO TID PRN (Reason: muscle spasm) 30 Days Qty: 90 RF: 1 aspirin 81 mg tablet,delayed release (DR/EC) 81 mg PO DAILY RF: 0 evolocumab 420 mg/3.5 mL wearable injector 420 mg SUBCUT Q30D Qty: 3.5 RF: 6 dulaglutide [Trulicity] 1.5 mg/0.5 mL pen injector See Rx Instructions .ROUTE .COMPLEX Qty: 2 RF: 0 insulin aspart U-100 [Novolog U-100 Insulin aspart] 100 unit/mL solution See Rx Instructions .ROUTE .COMPLEX Qty: 30 RF: 0 atorvastatin 40 mg tablet 40 mg PO QAM Qty: 30 RF: 0 metformin 1,000 mg tablet 1,000 mg PO QPM Qty: 30 RF: 0 Jardiance 25 mg tablet 25 mg PO DAILY Qty: 30 RF: 0 Flovent Diskus 50 mcg/actuation blister with device 2 inh inhalation BID RF: 0 cetirizine 10 mg tablet 10 mg PO QAM PRN (Reason: Allergy Symptoms) RF: 0 lisinopril 20 mg tablet See Rx Instructions .ROUTE .COMPLEX RF: 0 amlodipine 5 mg tablet 7.5 mg PO QAM RF: 0 metoprolol tartrate 50 mg tablet 50 mg PO Q12H RF: 0 buspirone 7.5 mg tablet 7.5 mg PO BID RF: 0 bupropion HCl 200 mg tablet sustained-release 12 hr 200 mg PO Q12H RF: 0 nitroglycerin 400 mcg/spray spray,non-aerosol See Rx Instructions .ROUTE .COMPLEX RF: 0 Lantus Solostar U-100 Insulin 100 unit/mL (3 mL) insulin pen 34 unit SUBCUT QAM RF: 0 ropinirole 0.25 mg tablet 0.25 mg PO BEDTIME RF: 0 Tums See Rx Instructions .ROUTE .COMPLEX RF: 0 furosemide 20 mg tablet See Rx Instructions .ROUTE .COMPLEX RF: 0 Discontinued Eliquis 5 mg tablet 5 mg PO BID RF: 0 Discharge Orders: Discharge Order (Routine); Ordered 08/12/20 Ordered By: Renay Quarles Referrals: Farrah Smith FNP [Nurse Practitioner] - (Please follow-up with Farrah Smith on August 19 at 11:00a.m. If youhave any questions or need to reschedule. Please call ) Rosey Phelps MD [Physician] - (Please follow-up with Dr. Phelps on September 10 at 2:00p.m. If you have any questions or need to reschedule. Please call ) Discharge Diet: Diabetic Discharge Activity: Increase activity as tolerated Patient Instructions: Ticagrelor (By mouth), Left Heart Catheterization (DC), Diabetes Mellitus Type 2 in Adults (DC), Post Angiogram Home Care Instructions Activity Restrictions/Additional Instructions: Lifting of more than a gallon of milk for next 3 days. Follow-up with Farrah Smith in 7 days in [address] Phelps Discharge Attestations Time Spent in Discharge Care*: less than 30 min Specific Discharge Activities: educating patient Quality Metrics Clinical Quality Measures During this hospital stay, did patient experience: None Coding Level of Care Code Acute Teasel Gig Operator for Meghanng Fwd Exam Expanded Problem Focused Diagnoses CAD (coronary artery disease) I25.10 Associated angina: angina presence unspecified Coronary Disease-Associated Artery/Lesion type: [place] artery [place] vs. transplanted heart: [place] heart DM type 2 (diabetes mellitus, type 2) E11.9 Diabetes mellitus complication status: without complication Diabetes mellitus chcf insulin use: without terminal makeup operator use Pulmonary embolism, bilateral I26.99
[2020-08-12 15:18] VITALS: PULSE 69
--- NOTE | 2020-08-12 16:19 | PC.NURSE ---
discharge instructions given and explained.pt verb understanding of instructions.discharged via w/c to exit .nephew to drive pt home
== END 2020-08-12 13:55 | disposition home or self-care (01) ==
LOC: CCL 08-11 01:49 → CSU 08-11 01:49
PROVIDERS: Admitting Provider Internal Medicine Cardiovascular Disease; PCP Family Medicine; Visit Provider Internal Medicine Cardiovascular Disease
DX: I25.110 Atherosclerotic heart disease of native coronary artery with unstable angina pectoris (principal); E11.9 Type 2 diabetes mellitus without complications; I26.99 Other pulmonary embolism without acute cor pulmonale; Z79.82 Long term (current) use of aspirin; Z79.4 Long term (current) use of insulin; Z79.01 Long term (current) use of anticoagulants; K21.9 Gastro-esophageal reflux disease without esophagitis; Z79.899 Other long term (current) drug therapy; G47.33 Obstructive sleep apnea (adult) (pediatric); Z79.891 Long term (current) use of opiate analgesic; Z86.73 Personal history of transient ischemic attack (TIA), and cerebral infarction without residual deficits; I10 Essential (primary) hypertension; E66.01 Morbid (severe) obesity due to excess calories; Z68.43 Body mass index [BMI] 50.0-59.9, adult; M81.0 Age-related osteoporosis without current pathological fracture; Z82.49 Family history of ischemic heart disease and other diseases of the circulatory system
CPT/HCPCS: 12345; 36415; 36416; 80048; 82962; 85025; 85347; 85730; 93454; 93571; 96372; C1725; C1769; C1874; C1887; C1894; C9600; G0378; J0153; J1644; J1815; J2250; J3010; J3246; J3490; J7030; Q0163; Q9967

== ENCOUNTER → 2020-08-31 15:01 | Outpatient (BNVA) | payer MEDICARE, MEDICAID, SELFPAY | PROVIDERS: PCP Family Medicine; Visit Provider Internal Medicine Cardiovascular Disease | DX: I10 Essential (primary) hypertension (principal); Z98.890 Other specified postprocedural states | CPT/HCPCS: 80048; 80061; 83721 ==

== ENCOUNTER → 2020-09-02 13:15 | Outpatient (BNVA) | payer MEDICARE, MEDICAID, SELFPAY | PROVIDERS: PCP Family Medicine; Visit Provider Internal Medicine | DX: E11.42 Type 2 diabetes mellitus with diabetic polyneuropathy (principal); Z79.4 Long term (current) use of insulin; N30.20 Other chronic cystitis without hematuria | CPT/HCPCS: 81003; 99214 ==

== ENCOUNTER 2020-09-15 12:29 | Emergency (ER) | payer MEDICARE, MEDICAID, SELFPAY ==
[2020-09-15 12:52] VITALS: BP 153/72; PULSE 76; RESP 18; TEMP 36.7; O2SAT 97; BMI 49.9
--- NOTE | 2020-09-15 13:31 | XRR_ITS ---
PROCEDURE INFORMATION: Exam: XR Right Foot Exam date and time: 09/15/2020 1:35 PM Age: 59 years old Clinical indication: Swelling, leg or foot; Right; Patient HX: Pain, bruising, swelling at base of toes. No known injury, just started this am HX of diabetes; Additional info: RT foot pain TECHNIQUE: Imaging protocol: XR Right foot. Views: 3 or more views. COMPARISON: No relevant prior studies available. FINDINGS: Bones/joints: There is chronic spurring on the calcaneus. No acute bony abnormalities are seen. Soft tissues: There is soft tissue swelling of the forefoot. Vasculature: 1. Prominent atherosclerotic calcifications are present. XR/XR foot RT min 3V* [id number] IMPRESSION: 1. Soft tissue swelling. 2. No acute bony abnormality.
[2020-09-15 15:21] VITALS: BP 163/69; PULSE 71; O2SAT 97
--- NOTE | 2020-09-15 15:27 | W.ED.EXTPRO ---
HPI - Extremity Problem General: Chief complaint: Extremity Injury, Lower Stated complaint: r foot pain Time Seen by Provider: 09/15/20 15:22 Source: patient Mode of arrival: ambulatory Limitations: no limitations History of Present Illness: HPI Narrative: 59-year-old female patient presents to the emergency department spontaneous bruising of the right foot, she reports since she has been in the ER, her right calf is now hurting. She reports history of blood clots. She is concerned may have a DVT in her leg. She also reports spontaneous bruising to the left breast. She denies trauma or injury to the foot or to the breast. She denies difficulty breathing or other concerning symptoms such as chest pain or shortness of breath. She remains on aspirin and Brilinta which can cause easy bruising. She reports recent stent placement approximately 1 month ago. She denies chest pain/shortness of breath, she is not tachycardic upon exam. MD Complaint: extremity pain Onset (ago): unknown (Upon awakening) Pain Consistency: intermittent Location: right and lower extremity Quality: aching and dull Relieving factors: immobilization and rest Exacerbating factors: range of motion, weight bearing and walking Associated symptoms: Reports no associated symptoms; Deny chest pain, fever(s) or rash Review of Systems General: Reports: 10 or more systems reviewed and unremarkable except in HPI and below Const: Denies: fever(s), chills or diaphoresis Eyes: Denies: blurry vision or eye redness ENMT: Denies: throat pain, dental pain or disequilibrium Card: Denies: chest pain, palpitations or irregular heart rhythm Resp: Denies: dyspnea, productive cough, non-productive cough or wheezing GI: Denies: abdominal pain, nausea or vomiting : Denies: difficulty voiding or dysuria Musc: Denies: neck pain, back pain or joint pain Skin/Breast: Reports: skin tenderness and other (Ecchymosis to the right dorsal foot and left breast); Denies: rash or pruritus Neuro: Denies: headache(s), weakness in extremities or behavioral changes Psych: Denies: anxiety or depression Soham/Lymph: Denies: easy bruising PFS ED PFSH: Medical History Bilateral lower extremity edema CAD (coronary artery disease) Chronic cystitis Chronic low back pain Constipation CVA (cerebral vascular accident) DM type 2 (diabetes mellitus, type 2) Dyslipidemia GERD (gastroesophageal reflux disease) Gross hematuria HTN (hypertension) Long-term use of high-risk medication Migraine headache Morbid obesity Opioid contract exists BETH (obstructive sleep apnea) Osteoporosis Pulmonary embolism, bilateral RLS (restless legs syndrome) Surgical History H/O heart artery stent History of partial surgical removal of colon Hx of total knee replacement S/P appendectomy S/P cholecystectomy S/P hysterectomy S/P tonsillectomy and adenoidectomy Family History Grandfather Cancer Family/Other Myocardial infarct MOTHER, FATHER, BROTHER, SISTER Hypertension Diabetes Mother CAD (coronary artery disease) Father CAD (coronary artery disease) Sister CAD (coronary artery disease) Brother CAD (coronary artery disease) Other Stroke Denies family history of Anesthesia complication Bleeding disorder Social History Smoking and tobacco status: never smoked Alcohol intake: never Lives independently: Yes Marital status: Current occupational status: unemployed Physical Exam Const: COMMON NORMALS: no acute distress, patient oriented x3, healthy appearing and alert GENERAL APPEARANCE: cooperative, comfortable and well hydrated HENMT: COMMON NORMALS: normocephalic, Normal external nose present and moist oral mucous membranes HEAD & SCALP: normocephalic NOSE: Normal external nose present Eye: COMMON NORMALS: Equal, round and reactive pupils present and EOMs intact bilaterally GENERAL EYE: appearance normal, both eyes and all related structures PUPIL: Yes Equal, round and reactive pupils present Neck/C-Spine: COMMON NORMALS: full ROM and no lymphadenopathy GENERAL: Yes normal visual inspection and Yes trachea midline CERVICAL SPINE: Yes cervical ROM normal Lymph: LYMPHATIC: no lymphadenopathy noted Chest: COMMONS NORMALS: normal inspection of the chest Resp: COMMON NORMALS: normal respiratory effort and clear to auscultation bilaterally AUSCULTATION: clear to auscultation bilaterally Cardio: COMMON NORMALS: regular rhythm, S1 normal heart sound present and S2 normal heart sound present RHYTHM: regular rhythm HEART SOUNDS: S1 normal heart sound present and S2 normal heart sound present GI: COMMON NORMALS: Soft to palpation and non-tender INSPECTION: Yes normal to inspection PALPATION: Yes Soft to palpation : COMMON NORMALS: Yes no CVA tenderness BLADDER/KIDNEY EXAM: Yes no CVA tenderness Back/Pelvis: COMMON NORMALS: no CVA tenderness and thoracic and lumbar spine normal to inspection Extremity: COMMON NORMALS: normal to inspection and capillary refill normal Neuro: COMMON NORMALS: patient oriented x3 and no focal motor deficits SENSORIUM/ORIENTATION: Yes alert Psych: COMMON NORMALS: mental status grossly normal, Normal thought process present and cooperative ACTIVITY/MOTOR BEHAVIOR: Yes appropriate eye contact THOUGHT PROCESS: Normal thought process present Skin: COMMON NORMALS: no rashes or lesions noted and turgor normal GENERAL SKIN EXAM: no rashes or lesions noted and turgor normal Course Vital Signs: Vital signs: Vital Signs Temperature 98.0 F 09/15/20 12:52 Pulse Rate 74 09/15/20 16:39 Respiratory Rate 16 09/15/20 16:39 Blood Pressure 132/77 09/15/20 16:39 Pulse Oximetry 96 09/15/20 16:39 MDM - Extremity (Nontraumatic) Imaging Data^: Other Xray: Radiologist's impression: [address] [address] XRay Report Signed Patient: Watson Bridges Unit #: [id number] : 1960 Age/Sex: 59 / F ADM Date: 09/15/20 Loc: ER Room/Bed: Attending Dr: Ordering Provider/Ordering MD: Jelena Marrero Date of Service: 09/15/20 Procedure(s): XR foot RT min 3V* [id number] Accession Number(s): [id number] Report Number: [id number] PROCEDURE INFORMATION: Exam: XR Right Foot Exam date and time: 09/15/2020 1:35 PM Age: 59 years old Clinical indication: Swelling, leg or foot; Right; Patient HX: Pain, bruising, swelling at base of toes. No known injury, just started this am HX of diabetes; Additional info: RT foot pain TECHNIQUE: Imaging protocol: XR Right foot. Views: 3 or more views. COMPARISON: No relevant prior studies available. FINDINGS: Bones/joints: There is chronic spurring on the calcaneus. No acute bony abnormalities are seen. Soft tissues: There is soft tissue swelling of the forefoot. Vasculature: 1. Prominent atherosclerotic calcifications are present. XR/XR foot RT min 3V* [id number] IMPRESSION: 1. Soft tissue swelling. 2. No acute bony abnormality. Dictated By: Rodney Lemons Signed By: Rodney Lemons Signed Date/Time: 09/15/20 1401 DD/ 1400 Other Imaging: My impression: Right ultrasound duplex, extremity lower; no acute DVT Discharge Plan Discharge Patient Disposition: Home Clinical Impression: Ecchymoses, spontaneous Contusion of foot Qualifiers: Encounter type: initial encounter Laterality: right Qualified Code(s): S90.31XA - Contusion of right foot, initial encounter Condition: Stable Prescriptions: No Action isosorbide mononitrate 30 mg tablet extended release 24 hr 30 mg PO BID Qty: 60 RF: 3 (DME) walker with seat and brakes See Rx Instructions .Route .MEDSUPPLY Qty: 1 RF: 0 (DME) diabetic shoes and inserts See Rx Instructions .Route .MEDSUPPLY Qty: 1 RF: 0 hydrocodone-acetaminophen 10-325 mg tablet 1 tab PO Q6H PRN (Reason: pain) 30 Days Qty: 120 RF: 0 (DME) pen needle, diabetic [Comfort EZ Pen [place]] 31 gauge x 5/16 needle See Rx Instructions .ROUTE .MEDSUPPLY Qty: 100 RF: 5 (DME) Assure ID Insulin Safety 1 mL 29 gauge x 1/2 syringe See Rx Instructions .ROUTE .MEDSUPPLY Qty: 100 RF: 5 insulin lispro [Humalog U-100 Insulin] 100 unit/mL solution 30 unit SUBCUT QID RF: 0 cyclobenzaprine 10 mg tablet 10 mg PO TID PRN (Reason: muscle spasm) 30 Days Qty: 90 RF: 1 aspirin 81 mg tablet,delayed release (DR/EC) 81 mg PO DAILY RF: 0 amlodipine 5 mg tablet 5 mg PO QAM Qty: 90 RF: 2 atorvastatin 40 mg tablet 40 mg PO QAM Qty: 90 RF: 3 metoprolol tartrate 50 mg tablet 50 mg PO Q12H Qty: 180 RF: 2 lisinopril 20 mg tablet 20 mg PO DAILY RF: 0 furosemide 20 mg tablet 20 mg PO BID RF: 0 evolocumab 420 mg/3.5 mL wearable injector 420 mg SUBCUT Q30D Qty: 3.5 RF: 6 metformin 1,000 mg tablet 1,000 mg PO QPM Qty: 30 RF: 0 Flovent Diskus 50 mcg/actuation blister with device 2 inh inhalation BID Qty: 60 RF: 1 ropinirole 0.25 mg tablet 0.25 mg PO BEDTIME Qty: 30 RF: 2 Trulicity 1.5 mg/0.5 mL pen injector See Rx Instructions .ROUTE .COMPLEX Qty: 2 RF: 1 (DME) Dexcom G6 Sensor Device See Rx Instructions .ROUTE .MEDSUPPLY Qty: 3 RF: 3 (DME) Dexcom G6 Corporate Health Consultant Misc See Rx Instructions .ROUTE .MEDSUPPLY Qty: 1 RF: 0 (DME) Dexcom G6 Transmitter Device See Rx Instructions .ROUTE .MEDSUPPLY Qty: 1 RF: 0 cetirizine 10 mg tablet 10 mg PO QAM PRN (Reason: Allergy Symptoms) RF: 0 buspirone 7.5 mg tablet 7.5 mg PO BID RF: 0 bupropion HCl 200 mg tablet sustained-release 12 hr 200 mg PO Q12H RF: 0 nitroglycerin 400 mcg/spray spray,non-aerosol See Rx Instructions .ROUTE .COMPLEX RF: 0 Tums See Rx Instructions .ROUTE .COMPLEX RF: 0 Brilinta 90 mg Tablet 90 mg PO BID Qty: 180 RF: 4 Lantus Solostar U-100 Insulin 100 unit/mL (3 mL) insulin pen 5 unit SUBCUT QAM RF: 0 Discharge Orders: Discharge ED (Routine); Ordered 09/15/20 Ordered By: Jelena Marrero Referrals: Michelle Billy MD [Primary Care Provider] - Discharge Activity: Limit activity as instructed Patient Instructions: Contusion in Adults (ED), Opioid Safety Activity Restrictions/Additional Instructions: Cool compresses to the right foot as needed for pain Return to the emergency department if you develop redness swelling of the right lower extremity or other concerning symptoms May take Tylenol as needed for pain Follow-up with your primary care provider for further needs Coding Level of Care Code ED Web Development Consultant for Romie Fwd Exam Comprehensive
--- NOTE | 2020-09-15 15:30 | USCV_ITS ---
Watson Bridges Age: 59 Gender: F : 1960 Exam Date: 09/15/2020 16:02 Ordering Phys: Jelena Marrero Technologist: Abdullahi Millard Exam Location: [facility] [place] Indication: RLE PAIN PROCEDURES: Venous duplex imaging was performed in only the right lower extremity. The following venous structures were evaluated: common femoral vein, profunda vein, proximal portion of the greater saphenous vein, superficial femoral vein, and the popliteal vein. In addition, the posterior tibial and peroneal trunk were evaluated. Serial compression, augmentation maneuvers, and spectral Doppler flow evaluation were performed. FINDINGS: Normal 2-D Doppler and augmentation and compressibility throughout the lower extremity venous structures. Additional imaging through the proximal calf veins also reveals no thrombus. Limited evaluation of the greater saphenous vein is patent with no thrombus.. CONCLUSIONS No evidence of right lower extremity DVT. Carlos Prescott MD (Electronically Signed) Final Date: 16 September 2020 13:09 S
[2020-09-15 16:39] VITALS: BP 132/77; PULSE 74; RESP 16; O2SAT 96
== END 2020-09-15 16:41 | disposition home or self-care (01) ==
PROVIDERS: Emergency Provider Nurse Practitioner Family; PCP Family Medicine
DX: S90.31XA Contusion of right foot, initial encounter (principal); R23.3 Spontaneous ecchymoses; Z79.82 Long term (current) use of aspirin; Z79.4 Long term (current) use of insulin; I25.10 Atherosclerotic heart disease of native coronary artery without angina pectoris; Z86.73 Personal history of transient ischemic attack (TIA), and cerebral infarction without residual deficits; E11.9 Type 2 diabetes mellitus without complications; E78.5 Hyperlipidemia, unspecified; I10 Essential (primary) hypertension; X58.XXXA Exposure to other specified factors, initial encounter
CPT/HCPCS: 73630; 93971; 99283

== ENCOUNTER → 2020-09-28 13:11 | Outpatient (BNVA) | payer MEDICARE, MEDICAID, SELFPAY | PROVIDERS: PCP Family Medicine; Visit Provider Family Medicine | DX: G47.30 Sleep apnea, unspecified (principal); M79.671 Pain in right foot; E11.42 Type 2 diabetes mellitus with diabetic polyneuropathy; Z79.4 Long term (current) use of insulin; I10 Essential (primary) hypertension | CPT/HCPCS: 80053; 83036; 84443; 85025 ==

== ENCOUNTER → 2020-09-29 16:37 | Outpatient (BNVA) | payer MEDICARE, MEDICAID, SELFPAY | PROVIDERS: PCP Family Medicine; Visit Provider Internal Medicine Cardiovascular Disease | DX: I10 Essential (primary) hypertension (principal); Z98.890 Other specified postprocedural states; I25.10 Atherosclerotic heart disease of native coronary artery without angina pectoris; E11.9 Type 2 diabetes mellitus without complications; E66.01 Morbid (severe) obesity due to excess calories; E78.5 Hyperlipidemia, unspecified; G47.33 Obstructive sleep apnea (adult) (pediatric); R06.00 Dyspnea, unspecified | CPT/HCPCS: 83880 ==

== ENCOUNTER → 2020-10-13 11:19 | Outpatient (BNVA) | payer MEDICARE, MEDICAID, SELFPAY | PROVIDERS: PCP Family Medicine; Visit Provider Family Medicine | DX: R79.89 Other specified abnormal findings of blood chemistry (principal) | CPT/HCPCS: 84439; 84443; 84481 ==

== ENCOUNTER → 2020-11-11 14:14 | Outpatient (BNVA) | payer MEDICARE, MEDICAID, SELFPAY | PROVIDERS: PCP Family Medicine; Visit Provider Urology | DX: N30.20 Other chronic cystitis without hematuria (principal) | CPT/HCPCS: 81003 ==

== ENCOUNTER → 2020-12-09 11:04 | Outpatient (BNVA) | payer MEDICARE, MEDICAID, SELFPAY | PROVIDERS: PCP Family Medicine; Visit Provider Internal Medicine | DX: Z01.812 Encounter for preprocedural laboratory examination (principal); Z20.822 Contact with and (suspected) exposure to COVID-19 | CPT/HCPCS: 87635 ==

== ENCOUNTER 2020-12-11 09:06 | Day surgery (SDC) | payer MEDICARE, MEDICAID, SELFPAY ==
--- NOTE | 2020-12-11 09:36 | W.PM.OPSFHP ---
Same Day Surgery H&P Indication for Procedure/HPI DATE OF PROCEDURE: December 11, 2020 CHIEF COMPLAINT/INDICATIONFOR SURGICAL PROCEDURE: Change in bowel habit, pill dysphagia PREOP DIAGNOSIS: Dysphagia PLANNED PROCEDRUE: Operation Date: 12/11/20 10:45 Proposed Procedures p EGD/colon 75706 [id number] R13.10 R19.4(Not Applicable) - Niko Jerez MD s Colonoscopy(Not Applicable) - Niko Jerez MD Medications/Allergies* Home Medications Medication Instructions Recorded Confirmed Type Tums See Rx Instructions .ROUTE .COMPLEX 08/11/20 12/09/20 History nitroglycerin See Rx Instructions .ROUTE .COMPLEX 08/11/20 12/09/20 History insulin lispro 100 unit/mL 40 unit SUBCUT QID ml 11/11/20 12/09/20 History subcutaneous solution marijuana 11/11/20 12/10/20 History insulin glargine [Lantus Solostar 40 unit SUBCUT QAM 12/09/20 12/09/20 History U-100 Insulin] Allergies/Adverse Reactions Allergy/AdvReac Type Severity Reaction Status Date / Time ciprofloxacin [From Cipro] Allergy hives Verified 12/03/20 11:01 citalopram Allergy effects Verified 12/03/20 11:01 speach and memory clopidogrel [From Plavix] Allergy unk Verified 12/03/20 11:01 ibuprofen Allergy RASH/ Verified 12/03/20 11:01 SWELLING morphine Allergy ITCHING Verified 12/03/20 11:01 famotidine AdvReac Mild itching Verified 12/03/20 11:01 esomeprazole [From Nexium] AdvReac Unknown Verified 12/03/20 11:01 Pertinent History/Comorbid Conditions* Medical History (Updated 12/03/20 @ 11:25 by Niko Jerez MD) Bilateral lower extremity edema CAD (coronary artery disease) Chronic cystitis Chronic low back pain Constipation CVA (cerebral vascular accident) DM type 2 (diabetes mellitus, type 2) Dyslipidemia GERD (gastroesophageal reflux disease) Gross hematuria HTN (hypertension) Long-term use of high-risk medication Migraine headache Morbid obesity Opioid contract exists BETH (obstructive sleep apnea) Osteoporosis Pulmonary embolism, bilateral RLS (restless legs syndrome) Surgical History (Updated 07/25/20 @ 08:40 by Freddy Hendrix MD) H/O heart artery stent History of partial surgical removal of colon Hx of total knee replacement S/P appendectomy S/P cholecystectomy S/P hysterectomy S/P tonsillectomy and adenoidectomy Family History (Updated 06/25/20 @ 14:23 by JANES Tolliver) Diabetes Family/Other CAD (coronary artery disease) Mother Father Sister Brother Myocardial infarct Family/Other MOTHER, FATHER, BROTHER, SISTER Cancer Grandfather Hypertension Family/Other Stroke Denies family history of Anesthesia complication Bleeding disorder Social History Smoking and tobacco status: never smoked Alcohol intake: never Other details last substance use: smokes marijuana at night Lives independently: Yes Marital status: Current occupational status: disabled History of recent travel: No Pertinent Exam Findings alert, oriented x 3, clear to auscultation bilaterally, regular rate & rhythm, operative site marked and procedure specific exam findings Recommendations Surgery/Procedure today Coding Level of Care Code Acute Adult Education Instructor for Romie Everett
[2020-12-11 09:53] VITALS: BP 146/70; PULSE 82; RESP 18; TEMP 36.1; O2SAT 93
[2020-12-11] MEDS: sodium chloride 0.9% 1,000 ML 30 ML IV (10:00)
[2020-12-11 10:10] LABS: Glucose Point of Care 274 mg/dL (70-110)
--- NOTE | 2020-12-11 10:20 | ANES.PREANE2 ---
Pre-Anesthetic Assessment Pre-Anesthetic Assessment: Height/Weight: Height 1.6 m Weight 131.088 kg Temp Pulse Resp BP Pulse Ox 97 F L 82 18 146/70 93 12/11/20 09:53 12/11/20 09:53 12/11/20 09:53 12/11/20 09:53 12/11/20 09:53 Preop Diagnosis: Dysphagia Proposed Procedure: Operation Date: 12/11/20 10:45 Proposed Procedures p EGD/colon [id number] R13.10 R19.4(Not Applicable) - Niko Jerez MD s Colonoscopy(Not Applicable) - Niko Jerez MD Was Beta Brigida taken within 24 hours: Yes Was Clonidine taken within 24 hours: N/A Last intake: Intake Last Liquid Date 12/10/20 Last Liquid Time 00:00 Last Solid Date 12/09/20 Last Solid Time 00:00 Social: Social History: No alcohol and No tobacco Exam: Pre-Anes Outpt Exam: alert, oriented x 3, clear to auscultation bilaterally and regular rate & rhythm Airway: Submandibular: WNL Cervical ROM: WNL MP: 2 Dentition: False Pulmonary: Pulmonary: [place] and Sleep apnea CV/HEM: CV/HEM: CAD (stents) and HTN GI: GI: GERD Metabolic: Metabolic: DM, Hyperlipidemia and Morbid obesity Musc/skel: Musc/skel: Lower Back Pain Neuropsych: Neuropsych: Anxiety and Depression Anesthetic Plan: ASA status: 3 Anesthesia: MAC Risk of > 500 ml blood loss (7ml/kg in children): No PFSH Anesthesia PFSH: Medical History Bilateral lower extremity edema CAD (coronary artery disease) Chronic cystitis Chronic low back pain Constipation CVA (cerebral vascular accident) DM type 2 (diabetes mellitus, type 2) Dyslipidemia GERD (gastroesophageal reflux disease) Gross hematuria HTN (hypertension) Long-term use of high-risk medication Migraine headache Morbid obesity Opioid contract exists BETH (obstructive sleep apnea) Osteoporosis Pulmonary embolism, bilateral RLS (restless legs syndrome) Surgical History H/O heart artery stent History of partial surgical removal of colon Hx of total knee replacement S/P appendectomy S/P cholecystectomy S/P hysterectomy S/P tonsillectomy and adenoidectomy Family History Grandfather Cancer Family/Other Myocardial infarct MOTHER, FATHER, BROTHER, SISTER Hypertension Diabetes Mother CAD (coronary artery disease) Father CAD (coronary artery disease) Sister CAD (coronary artery disease) Brother CAD (coronary artery disease) Other Stroke Denies family history of Anesthesia complication Bleeding disorder Social History Smoking and tobacco status: never smoked Alcohol intake: never Other details last substance use: smokes marijuana at night Lives independently: Yes Marital status: Current occupational status: disabled History of recent travel: No Data Anesthesia Other Labs: Laboratory Results - last 48 hr 12/11/20 10:06 POC Glucose 274 H Cardiac Studies: No Data to Display
[2020-12-11 11:20] VITALS: BP 144/57; PULSE 89; RESP 12; TEMP 36.1; O2SAT 93
--- NOTE | 2020-12-11 11:22 | ANE.PACU2 ---
Inpatient post-anesthesia follow up: Airway intact: Yes Vital signs: Temperature 97 F Pulse Rate 89 Respiratory Rate 12 Blood Pressure 144/57 Pulse Oximetry 93 Oxygen Delivery Me thod Room Air Oxygen Flow Rate Fraction of Inspir ed Oxygen Hydration adequate: Yes Nausea and vomiting: No Pain level: 1 Mental status: Baseline
[2020-12-11 11:34] VITALS: BP 144/62; PULSE 89; RESP 18; O2SAT 93
== END 2020-12-11 11:42 | disposition home or self-care (01) ==
PROVIDERS: PCP Family Medicine; Visit Provider Internal Medicine
PROC: 0DJ08ZZ Inspection of Upper Intestinal Tract, Via Natural or Artificial Opening Endoscopic (ICD-10-PCS; CPT 43235; principal; 2020-12-11 10:45)
PROC: 0DJD8ZZ Inspection of Lower Intestinal Tract, Via Natural or Artificial Opening Endoscopic (ICD-10-PCS; CPT 45378; 2020-12-11 10:45)
DX: R19.4 Change in bowel habit (principal); R13.10 Dysphagia, unspecified; I25.10 Atherosclerotic heart disease of native coronary artery without angina pectoris; Z86.73 Personal history of transient ischemic attack (TIA), and cerebral infarction without residual deficits; E11.9 Type 2 diabetes mellitus without complications; E78.5 Hyperlipidemia, unspecified; K21.9 Gastro-esophageal reflux disease without esophagitis; I10 Essential (primary) hypertension; E66.01 Morbid (severe) obesity due to excess calories; Z68.43 Body mass index [BMI] 50.0-59.9, adult; G47.33 Obstructive sleep apnea (adult) (pediatric); M81.0 Age-related osteoporosis without current pathological fracture; Z86.711 Personal history of pulmonary embolism; Z95.5 Presence of coronary angioplasty implant and graft
CPT/HCPCS: 36416; 43235; 45378; 82962; 96360; J2704; J7030

== ENCOUNTER → 2020-12-25 08:29 | Outpatient (BNVA) | payer MEDICARE, MEDICAID, SELFPAY | PROVIDERS: PCP Family Medicine; Visit Provider Family Medicine | DX: M25.511 Pain in right shoulder (principal) | CPT/HCPCS: 73030 ==

== ENCOUNTER → 2021-01-04 10:28 | Outpatient (BNVA) | payer MEDICARE, MEDICAID, SELFPAY | PROVIDERS: PCP Family Medicine; Visit Provider Family Medicine | DX: E11.42 Type 2 diabetes mellitus with diabetic polyneuropathy (principal); E78.5 Hyperlipidemia, unspecified; I10 Essential (primary) hypertension; K21.9 Gastro-esophageal reflux disease without esophagitis; Z79.4 Long term (current) use of insulin; Z79.899 Other long term (current) drug therapy; M62.838 Other muscle spasm | CPT/HCPCS: 80053; 80061; 83036; 85025 ==

== ENCOUNTER 2021-01-13 11:22 | Emergency (ER) | payer MEDICARE, MEDICAID, SELFPAY ==
[2021-01-13 11:48] VITALS: BP 147/68; PULSE 74; RESP 18; TEMP 36.7; O2SAT 95; BMI 51.2
--- NOTE | 2021-01-13 12:00 | XR_ITS ---
WS: [id number] RIGHT KNEE: 3 VIEW(S) TECHNIQUE: AP, oblique(s) and lateral. HISTORY: fall 2 days ago. knee pain COMPARISON: None available. No fracture or dislocation. Mild tricompartment joint space narrowing. Chondrocalcinosis in the medial compartment. No joint effusion. No soft tissue abnormality. XR/XR knee RT 3V* [id number] IMPRESSION: 1. No acute RIGHT knee fracture. 2. Mild tricompartment osteoarthritis.
--- NOTE | 2021-01-13 12:27 | ED_ITS ---
HPI - Extremity Problem General: Chief complaint: Extremity Injury, Lower Stated complaint: right knee pain Time Seen by Provider: 01/13/21 11:56 History of Present Illness: HPI Narrative: The patient is a 60-year-old female who comes to the ER complaining of a fall 6 weeks ago approximately. She says she also hurt her shoulder at that time she fell at a pool. She has had x-rays of the shoulder and has an MRI scheduled by her primary care physician. She did not complain of knee pain so no x-ray was done of that joint. She now complains and walks on it with a walker. She chronically uses a walker and takes her prescription pain medicine prescription THC for her pain. The triage assessment is incorrect on the timing. She fell 6 weeks ago approximately the patient says. Complaint: joint pain Onset (ago): week(s) (6) Pain Consistency: constant Location: right and knee Quality: sharp Radiation: none Relieving factors: rest Exacerbating factors: weight bearing and palpation Associated symptoms: Reports no associated symptoms; Deny chest pain or rash Review of Systems General: Reports: 10 or more systems reviewed and unremarkable except in HPI and below Const: Denies: fatigue Eyes: Denies: change in vision, blurry vision or eye redness ENMT: Denies: throat pain, swelling of lips/tongue, ear or mastoid pain or nasal congestion Card: Denies: chest pain, palpitations, irregular heart rhythm, edema, dyspnea on exertion or orthopnea Resp: Denies: dyspnea, productive cough or non-productive cough GI: Denies: abdominal pain, diarrhea or GI cramping : Denies: flank pain, difficulty voiding, urinary frequency or urinary urgency Musc: Reports: joint pain; Denies: neck pain, back pain, extremity pain, joint redness, limited range of motion or muscle weakness Skin/Breast: Denies: rash, pruritus, erythema, skin pain or skin tenderness Neuro: Denies: headache(s), numbness in extremities, weakness in extremities, sensory changes, difficulty walking, dizziness, confusion or Slurred speech present Psych: Denies: anxiety or depression Endo: Denies: polyuria All/Imm: Denies: urticaria, throat swelling or tongue swelling PFS ED PFSH: Medical History Bilateral lower extremity edema CAD (coronary artery disease) Chronic cystitis Chronic low back pain Constipation CVA (cerebral vascular accident) DM type 2 (diabetes mellitus, type 2) Dyslipidemia GERD (gastroesophageal reflux disease) Gross hematuria HTN (hypertension) Long-term use of high-risk medication Migraine headache Morbid obesity Opioid contract exists BETH (obstructive sleep apnea) Osteoporosis Pulmonary embolism, bilateral RLS (restless legs syndrome) Surgical History H/O heart artery stent History of partial surgical removal of colon Hx of total knee replacement S/P appendectomy S/P cholecystectomy S/P hysterectomy S/P tonsillectomy and adenoidectomy Family History Grandfather Cancer Family/Other Myocardial infarct MOTHER, FATHER, BROTHER, SISTER Hypertension Diabetes Mother CAD (coronary artery disease) Father CAD (coronary artery disease) Sister CAD (coronary artery disease) Brother CAD (coronary artery disease) Other Stroke Denies family history of Anesthesia complication Bleeding disorder Social History Smoking and tobacco status: heavy tobacco smoker (marijuana for pain/ has medical marijuana card) Alcohol intake: never Other details last substance use: smokes marijuana at night Lives independently: Yes Marital status: Current occupational status: disabled History of recent travel: No Physical Exam Const: COMMON NORMALS: no acute distress, average body habitus, patient oriented x3, no limitations, healthy appearing, alert and well nourished GENERAL APPEARANCE: cooperative, comfortable, well kempt and well developed ORIENTATION/CONSCIOUSNESS: Yes awake, Yes oriented to person, Yes oriented to place and Yes oriented to time HENMT: COMMON NORMALS: normocephalic, external ears normal and Normal external nose present HEAD & SCALP: normal to inspection and normocephalic NOSE: Normal external nose present EXTERNAL EAR: Yes external ears normal MOUTH: Normal oral and palatal mucosa present THROAT: posterior oropharynx normal Eye: COMMON NORMALS: Equal, round and reactive pupils present and EOMs intact bilaterally GENERAL EYE: appearance normal, both eyes and all related structures PUPIL: Yes Equal, round and reactive pupils present Neck/C-Spine: COMMON NORMALS: full ROM, no lymphadenopathy, no meningeal signs and no JVD GENERAL: Yes normal visual inspection Lymph: LYMPHATIC: no lymphadenopathy noted Chest: COMMONS NORMALS: normal inspection of the chest and normal palpation of entire chest wall Resp: COMMON NORMALS: normal respiratory effort, No retractions, No use of accessory muscles, clear to auscultation bilaterally and percussion normal EFFORT & INSPECTION: Yes able to speak in complete sentences AUSCULTATION: clear to auscultation bilaterally PERCUSSION: percussion normal Cardio: COMMON NORMALS: no JVD, regular rate, regular rhythm, S1 normal heart sound present, S2 normal heart sound present and Peripheral pulses 2+ throughout RATE: regular rate RHYTHM: regular rhythm HEART SOUNDS: S1 normal heart sound present and S2 normal heart sound present PERIPHERAL PULSES: Peripheral pulses 2+ throughout GI: COMMON NORMALS: Normal to inspection, nondistended, normoactive bowel sounds present, Soft to palpation, non-tender and no masses INSPECTION: Yes normal to inspection PALPATION: Yes Soft to palpation : COMMON NORMALS: Yes no CVA tenderness BLADDER/KIDNEY EXAM: Yes no CVA tenderness Back/Pelvis: COMMON NORMALS: no CVA tenderness, thoracic and lumbar spine normal to inspection, no thoracic nor lumbar tenderness and thoraco-lumbar ROM normal Extremity: COMMON NORMALS: normal to inspection, full ROM, capillary refill normal, no joint enlargement and no pedal edema NARRATIVE EXTREMITY EXAM: The patient walks with a walker chronically. She has mild bony tenderness to her knee and her ligaments appear intact though it is difficult to tell with her reaction to the exam. She is expressing pain out of context to her stated complaint of a fall over a month likely 6 weeks ago. GENERAL: Yes normal exam except as noted Neuro: COMMON NORMALS: patient oriented x3, CN's II-XII intact bilaterally, moves all extremities, no focal motor deficits, no sensory deficits noted and gait normal SENSORIUM/ORIENTATION: Yes alert, Yes oriented to person, Yes oriented to place and Yes oriented to time MENINGEAL SIGNS: Yes no meningeal signs Psych: COMMON NORMALS: mental status grossly normal, Normal thought process present, cooperative, normal affect and speech normal APPEARANCE: Yes well kempt ATTITUDE: Yes calm SPEECH: Yes normal speech THOUGHT PROCESS: Normal thought process present Skin: COMMON NORMALS: no rashes or lesions noted GENERAL SKIN EXAM: no rashes or lesions noted Course Vital Signs: Vital signs: Vital Signs Temperature 98.1 F 01/13/21 11:48 Pulse Rate 74 01/13/21 11:48 Respiratory Rate 18 01/13/21 11:48 Blood Pressure 147/68 01/13/21 11:48 Pulse Oximetry 95 01/13/21 11:48 MDM - Extremity (Nontraumatic) MDM Narrative: Medical decision making narrative: The patient came in complaining of right knee pain after a fall over a month ago. She also had a shoulder injury at that time and had a negative x-ray by her primary care physician done then. She has a MRI of her right shoulder that her primary is supposed to call her back about. She says she also injured her right knee during that fall and that so she comes to the ER today complaining of. She chronically uses a walker and is morbidly obese. She says she has had ligament issues in the past on that knee. X-ray today is negative. She likely has sprained her knee though she will need an MRI to rule out injury to the ligaments and other pathologies. I recommended she call her primary care physician and get an MRI of her knee as well at the same time as her shoulder. Return to the ER at anytime with worsening symptoms otherwise take Tylenol and follow-up with primary care physician next week. Discharge Plan Discharge Patient Disposition: Home Clinical Impression: Acute knee pain Condition: Stable Prescriptions: No Action (DME) walker with seat and brakes See Rx Instructions .Route .MEDSUPPLY Qty: 1 RF: 0 (DME) diabetic shoes and inserts See Rx Instructions .Route .MEDSUPPLY Qty: 1 RF: 0 hydrocodone-acetaminophen 10-325 mg tablet 1 tab PO Q6H PRN (Reason: pain) 30 Days Qty: 120 RF: 0 (DME) Assure ID Insulin Safety 1 mL 29 gauge x 1/2 syringe See Rx Instructions .ROUTE .MEDSUPPLY Qty: 100 RF: 5 bupropion HCl 200 mg tablet sustained-release 12 hr 200 mg PO Q12H Qty: 90 RF: 1 buspirone 7.5 mg tablet 7.5 mg PO BID Qty: 180 RF: 1 cyclobenzaprine 10 mg tablet 10 mg PO TID PRN (Reason: muscle spasm) 30 Days Qty: 90 RF: 1 diclofenac sodium 1 % gel 2 g topical TID Qty: 100 RF: 1 Trulicity 1.5 mg/0.5 mL pen injector See Rx Instructions .ROUTE .COMPLEX Qty: 2 RF: 1 Flovent Diskus 50 mcg/actuation blister with device 2 inh inhalation BID Qty: 60 RF: 5 lubiprostone [Amitiza] 8 mcg capsule 8 mcg PO BID Qty: 180 RF: 0 metformin 1,000 mg tablet See Rx Instructions .ROUTE .COMPLEX Qty: 30 RF: 0 Lantus Solostar U-100 Insulin 100 unit/mL (3 mL) insulin pen 40 unit SUBCUT QAM Qty: 15 RF: 3 insulin lispro [Humalog U-100 Insulin] 100 unit/mL solution 40 unit SUBCUT QID Qty: 10 RF: 3 amlodipine 5 mg tablet 5 mg PO QAM Qty: 90 RF: 3 atorvastatin 40 mg tablet 40 mg PO QAM Qty: 90 RF: 3 Repatha Pushtronex 420 mg/3.5 mL wearable injector See Rx Instructions .ROUTE .COMPLEX Qty: 3.5 RF: 11 furosemide 40 mg tablet 40 mg PO DAILY Qty: 90 RF: 3 isosorbide mononitrate 30 mg tablet extended release 24 hr 30 mg PO BID Qty: 180 RF: 3 metoprolol tartrate 50 mg tablet 50 mg PO .COMPLEX Qty: 270 RF: 3 Brilinta 90 mg tablet 90 mg PO BID Qty: 180 RF: 4 lisinopril 10 mg tablet 10 mg PO DAILY Qty: 90 RF: 3 nitroglycerin 400 mcg/spray spray,non-aerosol See Rx Instructions .ROUTE .COMPLEX Qty: 4.9 RF: 3 (DME) marijuana 0 .Route .MEDSUPPLY RF: 0 (DME) Dexcom G6 Sensor Device See Rx Instructions .ROUTE .MEDSUPPLY Qty: 3 RF: 3 (DME) Dexcom G6 Dobby Loom Chain Pegger Misc See Rx Instructions .ROUTE .MEDSUPPLY Qty: 1 RF: 0 (DME) Dexcom G6 Transmitter Device See Rx Instructions .ROUTE .MEDSUPPLY Qty: 1 RF: 0 (DME) insulin syringe-needle U-100 [BD Veo Insulin Syringe UF] 1/2 mL 31 gauge x 15/64 syringe See Rx Instructions .ROUTE .MEDSUPPLY Qty: 100 RF: 2 lancets [TRUEplus Lancets] 30 gauge misc See Rx Instructions .ROUTE .COMPLEX Qty: 100 RF: 3 (DME) FreeStyle Sangita 2 Sensor Kit See Rx Instructions .ROUTE .MEDSUPPLY Qty: 1 RF: 3 (DME) FreeStyle Sangita 2 [place]pin Misc See Rx Instructions .ROUTE .MEDSUPPLY Qty: 1 RF: 0 fluticasone propionate [Flonase Allergy Relief] 50 mcg/actuation spray,suspension 2 spray intranasal DAILY Qty: 1 RF: 3 ropinirole 0.25 mg tablet See Rx Instructions .ROUTE .COMPLEX Qty: 30 RF: 2 Tums See Rx Instructions .ROUTE .COMPLEX RF: 0 Discharge Orders: Discharge ED (Routine); Ordered 01/13/21 Ordered By: Romeo Ma Referrals: Michelle Billy MD [Primary Care Provider] - Discharge Diet: Advance as tolerated Discharge Activity: Limit activity as instructed Patient Instructions: Knee Pain (ED), Opioid Safety Activity Restrictions/Additional Instructions: The x-ray is negative for fracture of your right knee. You likely have pain from ligament sprain or injury. Please call your primary care physician and get an MRI of your knee as well. I know you also have an MRI scheduled of your shoulder which is convenient. Hopefully you can do the knee at the same time. Return to the ER at anytime with worsening symptoms otherwise take Tylenol for your pain and follow-up with your primary care physician next week. Coding Level of Care Code ED Clinical Specialist Medical Device for Romie Everett Exam Comprehensive
[2021-01-13 13:22] VITALS: RESP 18
== END 2021-01-13 13:23 | disposition home or self-care (01) ==
PROVIDERS: Emergency Provider Family Medicine; PCP Family Medicine
DX: M25.561 Pain in right knee (principal); Z79.4 Long term (current) use of insulin; I25.10 Atherosclerotic heart disease of native coronary artery without angina pectoris; Z86.73 Personal history of transient ischemic attack (TIA), and cerebral infarction without residual deficits; E11.9 Type 2 diabetes mellitus without complications; E78.5 Hyperlipidemia, unspecified; I10 Essential (primary) hypertension; Z86.711 Personal history of pulmonary embolism; F17.210 Nicotine dependence, cigarettes, uncomplicated
CPT/HCPCS: 73562; 99282

== ENCOUNTER 2021-01-14 20:00 | Outpatient (CLI) | payer MEDICARE, MEDICAID, SELFPAY | END 2021-01-14 20:01 | disposition home or self-care (01) | LOC: SLEEP 01-15 08:44 | PROVIDERS: PCP Family Medicine; Visit Provider Family Medicine | DX: G47.30 Sleep apnea, unspecified (principal) | CPT/HCPCS: 95810 ==

== ENCOUNTER 2021-01-27 16:55 | Outpatient (CLI) | payer MEDICARE, MEDICAID, SELFPAY ==
--- NOTE | 2021-01-27 17:30 | MR_ITS ---
WS: [id number] MRI RIGHT SHOULDER NONCONTRAST TECHNIQUE: Limited study due to pain. Patient unable to complete examination. Coronal PD, sagittal T2 , axial PD, axial T2 imaging. CLINICAL INFORMATION: M25.511 - Pain in right shoulder COMPARISON: None. FINDINGS: Moderate degenerative arthritis AC joint with mild edema. Mild downsloping acromion with subacromial spurring. Tendinopathy with tiny undersurface tear at the distal supraspinatus. No high-grade rotator cuff tears. Mild chronic thinning of the distal supraspinatus. Normal infraspinatus. Normal teres mi nor. Normal subscapularis. Normal biceps tendon in the bicipital groove. Degenerative fraying of the glenoid labrum. MR/MR shoulder RT wo con* [id number] IMPRESSION: Limited examination due to patient's pain. 1. Moderate degenerative narrowing AC joint with mild edema and moderate downs loping of the acromion with subacromial spurring. 2. Tendinopathy with a tiny undersurface tear involving the distal supraspinat us with chronic thinning. 3. No full-thickness rotator cuff tears. 4. Normal biceps tendon in the bicipital groove. 5. Degenerative bone marrow signal in the humeral head and glenoid. No evidenc e of acute fracture
== END 2021-01-27 16:56 | disposition home or self-care (01) ==
LOC: RADSHAW 17:01
PROVIDERS: PCP Family Medicine; Visit Provider Family Medicine
DX: M25.511 Pain in right shoulder (principal); R60.0 Localized edema
CPT/HCPCS: 73221

== ENCOUNTER 2021-02-22 09:18 | Outpatient (CLI) | payer MEDICARE, MEDICAID, SELFPAY ==
--- NOTE | 2021-02-22 09:30 | MR_ITS ---
WS: [id number] MRI RIGHT KNEE HISTORY: knee pain COMPARISON: Radiographs 01/13/2021 Anterior cruciate ligament: Intact. Posterior cruciate ligament: Intact. Medial collateral ligament: Fluid on both sides of the MCL. No tear is identified although the medial collateral ligament is thinned. Posterior lateral corner structures: Intact. Medial menisci: Horizontal tear in the posterior horn extends to the inferior articular surface near the free edge. Anterior horn is negative. Lateral meniscus: Very minimal blunting of the free edge of the posterior horn. Suspect vertical tear or fissuring of the meniscus. Extensor mechanism: Distal quadriceps tendon and patellar tendons are intact. Fluid and soft tissue: Small suprapatellar joint effusion and a small amount of soft tissue edema. No Mckeon's cyst. Osseous and articular structures: Patellofemoral compartment: Moderate narrowing patellofemoral joint space. Complete loss of cartilage in the lateral compartment involving the facet with small focal area of subchondral edema. Moderate fissuring and loss of cartilage involving the medial patellar facet. Medial compartment: Moderate narrowing medial compartment with loss of cartilage. Small hypertrophic osteophytes extend towards the MCL. No fractures. Lateral compartment: Mild narrowing with fissuring and thinning of the cartilage throughout. No marro w edema. Along the central weightbearing surface of the lateral tibial plateau there is increased T2 signal extending obliquely through the cartilage suggesting an area of delamination. MR/MR knee RT wo con* [id number] IMPRESSION: 1. Moderate medial compartment internal derangement with complete loss of cart ilage and no significant edema. 2. Mild narrowing of the lateral compartment with loss of cartilage and focal delamination involving the lateral tibial plateau cartilage. 3. Horizontal tear posterior horn medial meniscus. 4. Blunting free edge posterior horn lateral meniscus. Vertical tear versus fi ssuring. This is also the site of the cartilage delamination. 5. Moderate chondromalacia patellofemoral compartment, greatest involving the lateral facet.
== END 2021-02-22 09:19 | disposition home or self-care (01) ==
LOC: RADSHAW 09:20
PROVIDERS: PCP Family Medicine; Visit Provider Family Medicine
DX: M25.561 Pain in right knee (principal); M22.41 Chondromalacia patellae, right knee; S83.241A Other tear of medial meniscus, current injury, right knee, initial encounter; X58.XXXA Exposure to other specified factors, initial encounter
CPT/HCPCS: 73721

== ENCOUNTER → 2021-03-19 13:05 | Outpatient (BNVA) | payer MEDICARE, MEDICAID, SELFPAY | PROVIDERS: PCP Family Medicine; Visit Provider Internal Medicine | DX: R31.0 Gross hematuria (principal); N30.20 Other chronic cystitis without hematuria | CPT/HCPCS: 81003 ==

== ENCOUNTER 2021-05-04 06:00 | Outpatient (RCR) | payer MEDICARE, MEDICAID, SELFPAY | END 2021-05-09 23:59 | disposition home or self-care (01) | LOC: TPT 06:00 | PROVIDERS: PCP Family Medicine; Referring Provider Family Medicine; Visit Provider Family Medicine | DX: M23.300 Other meniscus derangements, unspecified lateral meniscus, right knee (principal) | CPT/HCPCS: 97110; 97163 ==

== ENCOUNTER → 2021-05-04 13:17 | Outpatient (BNVA) | payer MEDICARE, MEDICAID, SELFPAY | PROVIDERS: PCP Family Medicine; Visit Provider Internal Medicine | DX: E11.42 Type 2 diabetes mellitus with diabetic polyneuropathy (principal); E11.59 Type 2 diabetes mellitus with other circulatory complications; E66.9 Obesity, unspecified; E78.5 Hyperlipidemia, unspecified; E16.0 Drug-induced hypoglycemia without coma; T38.3X5A Adverse effect of insulin and oral hypoglycemic [antidiabetic] drugs, initial encounter; Z79.4 Long term (current) use of insulin; Z68.43 Body mass index [BMI] 50.0-59.9, adult | CPT/HCPCS: 99214 ==

== ENCOUNTER 2021-05-10 06:00 | Outpatient (RCR) | payer MEDICARE, MEDICAID, SELFPAY | END 2021-06-08 23:59 | disposition home or self-care (01) | LOC: TPT 06:00 | PROVIDERS: PCP Family Medicine; Referring Provider Family Medicine; Visit Provider Family Medicine | DX: M23.300 Other meniscus derangements, unspecified lateral meniscus, right knee (principal) | CPT/HCPCS: 81000; 97530 ==

== ENCOUNTER → 2021-09-15 13:34 | Outpatient (BNVA) | payer MEDICARE, MEDICAID, SELFPAY | PROVIDERS: PCP Family Medicine; Visit Provider Nurse Practitioner Family | DX: I25.10 Atherosclerotic heart disease of native coronary artery without angina pectoris (principal); I10 Essential (primary) hypertension; Z98.890 Other specified postprocedural states; R07.9 Chest pain, unspecified; E11.59 Type 2 diabetes mellitus with other circulatory complications; Z68.43 Body mass index [BMI] 50.0-59.9, adult | CPT/HCPCS: 80048; 83880; 99214 ==

== ENCOUNTER → 2021-10-04 10:55 | Outpatient (BNVA) | payer MEDICARE, MEDICAID, SELFPAY | PROVIDERS: PCP Family Medicine; Visit Provider Family Medicine | DX: E11.42 Type 2 diabetes mellitus with diabetic polyneuropathy (principal); I10 Essential (primary) hypertension; E55.9 Vitamin D deficiency, unspecified | CPT/HCPCS: 80053; 80061; 82306; 83036; 84443; 85025 ==

== ENCOUNTER → 2021-10-12 11:09 | Outpatient (BNVA) | payer MEDICARE, MEDICAID, SELFPAY | PROVIDERS: PCP Family Medicine; Visit Provider Nurse Practitioner Family | DX: I50.9 Heart failure, unspecified (principal); E11.9 Type 2 diabetes mellitus without complications | CPT/HCPCS: 36415; 80048; 84439; 84443; 99214 ==

== ENCOUNTER 2021-10-14 08:53 | Observation (INO) | payer MEDICARE, MEDICAID, SELFPAY ==
[2021-10-14] VITALS (22 sets, daily range): BP systolic 134–192; BP diastolic 77–110; PULSE 67–84; RESP 14–18; TEMP 36.1–37.1; O2SAT 93–100; BMI 48.5
--- NOTE | 2021-10-14 09:00 | ED_ITS ---
HPI - Abdominal Pain General: Chief Complaint: Abdominal Pain Stated Complaint: abdominal pain/blood in urine Time Seen by Provider: 10/14/21 08:57 Source: patient Mode of arrival: ambulatory Limitations: no limitations History of Present Illness: 60-year-old female who presents to the emergency room with complaint of abdominal pain at the site of her previous hernia repair. She had hernia repair in [facility] within the last year and now she is having pain that started late yesterday she has been able to eat or drink since last night she does report some vomiting at home but has not had any when she arrived here but she has been eaten anything either. She denies any fever sweats chills shortness of breath or chest pain MD elicited complaint: abdominal pain Pertinent past history: other (Recent mesh umbilical hernia repair) Onset (ago): hour(s) Pain Consistency: constant Location: Periumbilical Severity: moderate Quality: cramping Radiation: none Migration to: no migration Exacerbating factors: movement and other (Palpation) Relieving factors: nothing Context: recent surgery/procedure (Umbilical hernia repair with mesh) Associated Symptoms: Reports bloating, GI cramping, nausea, poor appetite and vomiting; Denies anorexia, belching, change in bowel habits, change in stool character, chills, coffee ground emesis, constipation, diarrhea, dyspepsia, dysuria, excessive flatus, fever(s), heartburn, hematochezia, hematuria, hematemesis, fecal incontinence, loose stools, melena, syncope and other Review of Systems Const: Denies: fever(s) or chills ENMT: Denies: throat pain, ear or mastoid pain, nasal discharge or nasal congestion Card: Denies: syncope Resp: Denies: dyspnea, productive cough or non-productive cough GI: Reports: abdominal pain, nausea, vomiting, bloating and GI cramping; Denies: hematemesis, coffee ground emesis, heartburn, diarrhea, constipation, belching, excessive flatus, fecal incontinence, change in bowel habits, change in stool character, hematochezia, melena or other : Denies: flank pain, difficulty voiding, dysuria, urinary frequency, urinary urgency or hematuria Skin/Breast: Denies: rash or pruritus PFSH ED PFSH: Medical History Bilateral lower extremity edema CAD (coronary artery disease) Chronic cystitis Chronic low back pain Constipation CVA (cerebral vascular accident) DM type 2 (diabetes mellitus, type 2) Dyslipidemia GERD (gastroesophageal reflux disease) Gross hematuria HTN (hypertension) Long-term use of high-risk medication Migraine headache Morbid obesity Opioid contract exists BETH (obstructive sleep apnea) Osteoporosis Pulmonary embolism, bilateral RLS (restless legs syndrome) Surgical History H/O heart artery stent History of partial surgical removal of colon Hx of total knee replacement S/P appendectomy S/P cholecystectomy S/P hysterectomy S/P tonsillectomy and adenoidectomy Family History Grandfather Cancer Family/Other Myocardial infarct MOTHER, FATHER, BROTHER, SISTER Hypertension Diabetes Mother CAD (coronary artery disease) Father CAD (coronary artery disease) Sister CAD (coronary artery disease) Brother CAD (coronary artery disease) Other Stroke Denies family history of Anesthesia complication Bleeding disorder Social History Smoking and tobacco status: never smoked Alcohol intake: never Other details last substance use: smokes marijuana at night Lives independently: Yes Marital status: Current occupational status: disabled History of recent travel: No Physical Exam Const: COMMON NORMALS: no acute distress GENERAL APPEARANCE: cooperative and comfortable ORIENTATION/CONSCIOUSNESS: Yes awake, Yes oriented to person, Yes oriented to place and Yes oriented to time HENMT: COMMON NORMALS: normocephalic, atraumatic and hearing grossly normal bilaterally HEAD & SCALP: normocephalic and atraumatic Neck/C-Spine: COMMON NORMALS: no JVD Resp: COMMON NORMALS: normal respiratory effort, No retractions, No use of accessory muscles and clear to auscultation bilaterally AUSCULTATION: clear to auscultation bilaterally Cardio: COMMON NORMALS: no JVD, regular rate, regular rhythm and No murmurs present (Cardio) RATE: regular rate RHYTHM: regular rhythm GI: COMMON NORMALS: No hepatosplenomegaly present AUSCULTATION: Yes nor moactive bowel sounds PALPATION: Yes Tenderness to palpation present (GI) (Periumbilical), No Guarding due to palpation present (GI) and Yes No hepatosplenomegaly present Extremity: COMMON NORMALS: normal to inspection, capillary refill normal, no clubbing, cyanosis or edema, no calf tenderness and no pedal edema Neuro: SENSORIUM/ORIENTATION: Yes oriented to person, Yes oriented to place and Yes oriented to time Skin: COMMON NORMALS: no rashes or lesions noted GENERAL SKIN EXAM: no rashes or lesions noted Course Vital Signs: Vital signs: Vital Signs Temperature 98 F 10/14/21 11:10 Pulse Rate 82 10/14/21 12:08 Respiratory Rate 16 10/14/21 12:08 Blood Pressure 172/91 10/14/21 12:08 Pulse Oximetry 96 10/14/21 12:08 MDM - Abdominal Pain Medical Decision Making Discussed with Dr. Whitman and with Dr. Villarreal patient has multiple comorbidities Dr. Whitman will admit he is taking patient directly to surgery and then intends to place patient in observation postoperatively Dr. Villarreal to consult for her medical issues. Discussed findings with the patient. Medical Records I reviewed the patient's medical records. Lab Data I reviewed the patient's lab results. : 10/14/21 09:40 10/14/21 09:40 Labs/Radiology: Radiology Impressions Abdomen/Pelvis CT 10/14/21 10:11 IMPRESSION: 1. RIGHT periumbilical lower abdominal wall hernia with herniated and obstructed loop of enhancing fluid-filled dilated small bowel with surrounding inflammatory stranding and edema. Hernia mouth appears relatively narrow. No free air or pneumatosis. Recommend surgical consultation. 2. New small bowel anastomosis in the LEFT lower quadrant with a slightly prominent fluid-filled loop of small bowel at the anastomosis. No evidence of high-grade obstruction. 3. No other changes compared to previous. 4. Hepatomegaly with diffuse fatty infiltration. 5. Normal caliber abdominal aorta. 6. Sigmoid diverticulosis. Notified James Sharma DO at 10/14/2021 11:27 AM. Laboratory Results WBC 10.3 10^3/uL (4.0-10.0) H 10/14/21 09:40 RBC 5.68 10^6/uL (4.1-5.3) H 10/14/21 09:40 Hgb 14.6 g/dL (11.5-15.3) 10/14/21 09:40 Hct 45.7 % (37.0-47.0) 10/14/21 09:40 MCV 80.5 fl (81-99) L 10/14/21 09:40 MCH 25.7 pg (28.0-34.0) L 10/14/21 09:40 MCHC 31.9 g/dL (30.0-36.0) 10/14/21 09:40 RDW 15.4 % (12.1-15.1) H 10/14/21 09:40 Plt Count 356 10^3/cmm (130-400) 10/14/21 09:40 MPV 10.5 fL (7.4-10.4) H 10/14/21 09:40 Neut % (Auto) 59.5 % 10/14/21 09:40 Lymph % (Auto) 30.1 % 10/14/21 09:40 [place] % (Auto) 6.1 % 10/14/21 09:40 Eos % (Auto) 3.3 % 10/14/21 09:40 Baso % (Auto) 0.6 % 10/14/21 09:40 Neut # (Auto) 6.12 10^3/uL (1.8-7.7) 10/14/21 09:40 Lymph # (Auto) 3.1 10^3/uL (0.8-4.8) 10/14/21 09:40 [place] # (Auto) 0.6 10^3/uL (0.2-0.9) 10/14/21 09:40 Eos # (Auto) 0.3 10^3/uL (0.0-0.8) 10/14/21 09:40 Baso # (Auto) 0.1 10^3/uL (0.0-0.1) 10/14/21 09:40 Nucleated RBC % (auto) 0 % 10/14/21 09:40 Nucleated RBCs # 0.0 /100WBC 10/14/21 09:40 Sodium 136 mmol/L (136-145) 10/14/21 09:40 Potassium 3.6 mmol/L (3.5-5.1) 10/14/21 09:40 Chloride 100 mmol/L (98-107) 10/14/21 09:40 Carbon Dioxide 25 mmol/L (22-29) 10/14/21 09:40 Anion Gap 14.6 (5-19) 10/14/21 09:40 BUN 20 mg/dL (6-20) 10/14/21 09:40 Creatinine 1.0 mg/dL (0.5-0.9) H 10/14/21 09:40 GFR Calculation 56.9 mL/min (90-130) L 10/14/21 09:40 Glucose 243 mg/dL (65-115) H 10/14/21 09:40 Calculated Osmolality 293 mOsm/kg (285-295) 10/14/21 09:40 Calcium 9.7 mg/dL (8.5-10.5) 10/14/21 09:40 Total Bilirubin 0.2 mg/dL (0.15-1.2) 10/14/21 09:40 AST 11 U/L (0-32) 10/14/21 09:40 ALT 9 U/L (0-33) 10/14/21 09:40 Alkaline Phosphatase 136 IU/L (35-105) H 10/14/21 09:40 Total Protein 6.7 g/dL (6.6-8.7) 10/14/21 09:40 Albumin 3.6 g/dL (3.5-5.2) 10/14/21 09:40 Globulin 3.1 g/dL (1.3-4.6) 10/14/21 09:40 Lipase 19 U/L (13-60) 10/14/21 09:40 Urine Color Yellow (Yellow) 10/14/21 09:11 Urine Appearance Cloudy (CLEAR) 10/14/21 09:11 Urine pH 5 (5-7) 10/14/21 09:11 Ur Specific [place] 1.025 (1.005-1.030) 10/14/21 09:11 Urine Protein Neg (Negative) 10/14/21 09:11 Urine Glucose (UA) 4+ (Normal) H 10/14/21 09:11 Urine Ketones Negative (Negative) 10/14/21 09:11 Urine Blood 3+ (Negative) H 10/14/21 09:11 Urine Nitrate Negative (Negative) 10/14/21 09:11 Urine Bilirubin Neg (Negative) 10/14/21 09:11 Urine Urobilinogen Norm mg/dL (Negative) 10/14/21 09:11 Ur Leukocyte Esterase Negative (Negative) 10/14/21 09:11 Urine RBC 25-40 /hpf (0-2) H 10/14/21 09:11 Urine WBC 15-25 /hpf (0-5) H 10/14/21 09:11 Ur Squamous Epith Cells 15-25 /hpf (0-5) H 10/14/21 09:11 Calcium Oxalate Crystal 0-4 /hpf H 10/14/21 09:11 Amorphous Sediment Not Reportable 10/14/21 09:11 Urine Bacteria 1+ /hpf (NONE) H 10/14/21 09:11 Discharge Plan Discharge Condition: Stable Coding Level of Care Code ED Civil Preparedness Officer for Romie Everett
--- NOTE | 2021-10-14 09:01 | ECG_ITS ---
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 Measurements Intervals [place] Rate: 75 P: 31 TX: 146 QRS: -7 QRSD: 86 T: 56 QT: 387 QTc: 435 Interpretive Statements SINUS RHYTHM NONSPECIFIC T-WAVE ABNORMALITY Compared to ECG 12/13/2019 18:03:47 No significant changes Electronically Signed On 10-14-2021 16:11:56 CDT by Jose Zapata M.D. [id number]
[2021-10-14 09:55] LABS: Basophils # 0.1 10^3/uL (0.0-0.1); Basophils % 0.6 %; Eosinophils # 0.3 10^3/uL (0.0-0.8); Eosinophils % 3.3 %; Hematocrit 45.7 % (37.0-47.0); Hemoglobin 14.6 g/dL (11.5-15.3); Lymphocytes # 3.1 10^3/uL (0.8-4.8); Lymphocytes % 30.1 %; Mean Corpuscular HGB Conc 31.9 g/dL (30.0-36.0); Mean Corpuscular Hemoglobin 25.7 pg (28.0-34.0); Mean Corpuscular Volume 80.5 fl (81-99); Mean Platelet Volume 10.5 fL (7.4-10.4); Monocytes # 0.6 10^3/uL (0.2-0.9); Monocytes % 6.1 %; Neutrophils # 6.12 10^3/uL (1.8-7.7); Neutrophils % 59.5 %; Nucleated Red Blood Cells % 0 %; Platelet Count 356 10^3/cmm (130-400); Red Blood Count 5.68 10^6/uL (4.1-5.3); Red Cell Distribution Width 15.4 % (12.1-15.1); White Blood Count 10.3 10^3/uL (4.0-10.0)
--- NOTE | 2021-10-14 10:11 | CT_ITS ---
WS: [id number] CT ABDOMEN PELVIS TECHNIQUE: Contrast-enhanced CT of the abdomen and pelvis with coronal and sagittal reformatted image s. CLINICAL INFORMATION: abd pain COMPARISON: CT 06/17/2020 and 03/31/2020 DLP: [address] scans at [facility] use at least one of these dose optimization techniques: automated e xposure control; mA and/or kV adjustment per patient size (includes targeted exams where dose is matc hed to clinical indication); or iterative reconstruction. FINDINGS: Reported history of RIGHT ventral abdominal wall mesh hernia repair in the interim RIGHT ventral abdominal wall hernia with herniated loop of small bowel with evidence of obstruction. Dilated loop of herniated small bowel with surrounding edema and inflammatory stranding. No free air. Hernia opening appears relatively narrow with closed loop obstruction. Evidence of small bowel anastomosis in the LEFT lower quadrant with slightly dilated fluid-filled loo p of small bowel is new from previous. No other significant interval changes. Hepatomegaly. Diffuse fatty infiltration liver. Normal portal vein and splenic vein. Splenic granulom as. Normal GE junction. Calcified nodules in the LEFT lower lobe. Fatty atrophy of the pancreas. Norm al celiac and SMA. Adrenal glands are normal. Portal vein and splenic vein are patent. Normal renal p arenchymal enhancement. No hydronephrosis. Small LEFT renal cyst. Normal caliber abdominal aorta. Sigmoid diverticulosis. No evidence of acute diverticulitis. No free fluid in the pelvis. Disc space narrowing lower lumbar spine. CT/CT abdomen pelvis w con* [id number] IMPRESSION: 1. RIGHT periumbilical lower abdominal wall hernia with herniated and obstruct ed loop of enhancing fluid-filled dilated small bowel with surrounding inflamma tory stranding and edema. Hernia mouth appears relatively narrow. No free air o r pneumatosis. Recommend surgical consultation. 2. New small bowel anastomosis in the LEFT lower quadrant with a slightly prom inent fluid-filled loop of small bowel at the anastomosis. No evidence of high- grade obstruction. 3. No other changes compared to previous. 4. Hepatomegaly with diffuse fatty infiltration. 5. Normal caliber abdominal aorta. 6. Sigmoid diverticulosis. Notified James Sharma DO at 10/14/2021 11:27 AM.
[2021-10-14 10:15] LABS: Alanine Aminotransferase 9 U/L (0-33); Albumin Level 3.6 g/dL (3.5-5.2); Alkaline Phosphatase 136 IU/L (35-105); Anion Gap 14.6 (5-19); Aspartate Amino Transferase 11 U/L (0-32); Blood Urea Nitrogen 20 mg/dL (6-20); Calcium 9.7 mg/dL (8.5-10.5); Carbon Dioxide 25 mmol/L (22-29); Chloride 100 mmol/L (98-107); Globulin 3.1 g/dL (1.3-4.6); Glomerular Filtration Rate 56.9 mL/min (90-130); Glucose 243 mg/dL (65-115); Lipase 19 U/L (13-60); Osmolality Calculated 293 mOsm/kg (285-295); Potassium 3.6 mmol/L (3.5-5.1); Sodium 136 mmol/L (136-145); Total Bilirubin 0.2 mg/dL (0.15-1.2); Total Protein 6.7 g/dL (6.6-8.7)
[2021-10-14 10:31] LABS: Add Urine Microscopic? YES; Bilirubin Urine Neg (Negative); Blood Urine 3+ (Negative); Glucose Urine UA 4+ (Normal); Ketones Urine Negative (Negative); Leukocyte Esterase Urine Negative (Negative); Nitrate Urine Negative (Negative); Protein Urine Neg (Negative); Specific Gravity, Urine 1.025 (1.005-1.030); Urine Appearance Cloudy (CLEAR); Urine Color Yellow (Yellow); Urobilinogen Urine Norm (Negative); pH Urine 5 (5-7)
[2021-10-14 10:32] LABS: Bacteria Urine 1+ /hpf; Calcium Oxalate Crystals Urine 0-4 /hpf; RBC Urine 25-40 /hpf (0-2); Squamous Epithelial Cell Urine 15-25 /hpf (0-5); WBC Urine 15-25 /hpf (0-5)
[2021-10-14] MEDS: iohexol 300 mg/mL 100 mL Btl IV (10:58)
--- NOTE | 2021-10-14 12:03 | ANES.PREANE2 ---
Pre-Anesthetic Assessment Height/Weight: Height 1.6 m Weight 124.284 kg Temp Pulse Resp BP Pulse Ox 98 F 84 15 138/80 96 10/14/21 11:10 10/14/21 11:10 10/14/21 11:10 10/14/21 11:10 10/14/21 11:10 Preop Diagnosis: Dysphagia Incarcerated hernia repair Familial anesthetic complications: None Was Beta Brigida taken within 24 hours: Yes Was Clonidine taken within 24 hours: N/A Social No alcohol and No tobacco Exam alert, oriented x 3, clear to auscultation bilaterally and regular rate & rhythm Airway Submandibular: within normal limits Cervical ROM: within normal limits Mallampati: Class II Dentition: partials Pulmonary Exertional Dyspnea and Sleep Apnea Hx of PE CV/HEM Coronary Artery Disease and Hypertension Cath 08/2020 Conclusions ? 1. There is mild coronary artery disease with two vessel disease. ? 2. Second Obtuse Marginal Branch Segment was treated with Drug Eluting Stent and Balloon. ? 3. Indication for left heart cath: Worsening of chest pain but shortness of breath suspicious for angina despite of maximization of medicine.IFRIFR: After equalizing the distal and proximal pressure of IFR wire proximal to the lesion, mid OM-2 lesion was crossed with IFR wire.? IFR but after waiting for couple of minute was noted to be 0.87 which is significant.? We proceeded with PCI using drug-eluting stent.. EKG 10/14/21 ? Interpretive Statements SINUS RHYTHM NONSPECIFIC T-WAVE ABNORMALITY Compared to ECG 12/13/2019 18:03:47 No significant changes [id number] [email or web address] Hematuria Chronic cystitis Hepatic Fatty liver GI Gastroesophageal Reflux Disease Dysphagia Incarcerated hernia CT 10/14/21 CT/CT abdomen pelvis w con* [id number] IMPRESSION: ? 1.? RIGHT periumbilical lower abdominal wall hernia with herniated and obstructed loop of enhancing fluid-filled dilated small bowel with surrounding inflammatory stranding and edema. Hernia mouth appears relatively narrow. No free air or pneumatosis. Recommend surgical consultation. 2.? New small bowel anastomosis in the LEFT lower quadrant with a slightly prominent fluid-filled loop of small bowel at the anastomosis. No evidence of high-grade obstruction. 3.? No other changes compared to previous. 4.? Hepatomegaly with diffuse fatty infiltration. 5.? Normal caliber abdominal aorta. 6.? Sigmoid diverticulosis. ? Metabolic Diabetes Mellitus and Morbid Obesity Musc/skel Lower Back Pain Neuropsych Anxiety, Cerebrovascular Accident (Right sided weakness ), Depression and Headache RLS Anesthetic Plan ASA status: 3E (60 year old with incarcerated hernia, BETH, morbid obesity, HTN, CAD, anxiety, DM and hx CVA. ) Anesthesia: Anesthesia Evaluation Other: We discussed risk and benefits of general anesthesia including PONV, sore throat (sometimes severe), corneal abrasion, positioning and peripheral nerve injuries, life threatening allergic reaction, post operative ICU admission requiring prolonged intubation, stroke, heart attack, , and rare incidences of recall. Patient consents to proceed with general anesthesia. Plan RSI, 2 PIV, arterial line Risk of > 500 ml blood loss (7ml/kg in children): Yes, adequate IV access and fluids planned Medications/Allergies Home Medications Medication Instructions Recorded Confirmed Last Taken Type walker with seat and brakes #1 ea 03/26/20 10/14/21 08/08/20 22:30 Rx diabetic shoes and inserts #1 ea 05/13/20 10/14/21 08/08/20 22:30 Rx hydrocodone 10 mg-acetaminophen 1 tab PO Q6H PRN 30 Days #120 tab 05/27/20 10/14/21 10/13/21 Rx 325 mg tablet insulin syringe,safetyneedle 1 mL #100 ea 05/27/20 10/14/21 08/08/20 22:30 Rx 29 gauge x 1/2 (Assure ID Insulin Safety) Tums 1 - 2 wafer PO Q4H PRN 08/11/20 10/14/21 12/10/20 History flash glucose scanning reader #1 ea 09/30/20 10/14/21 Unknown Rx (FreeStyle [place] 2 [place]) flash glucose sensor (FreeStyle #1 ea 09/30/20 10/14/21 Unknown Rx Sang[place] 2 Sensor) marijuana 11/11/20 10/14/21 Unknown History insulin syringe-needle U-100 1/2 #100 ea 04/01/21 10/14/21 Unknown Rx mL 31 gauge x 15/64 (BD Veo Insulin Syringe Ultra-Fine) pen needle, diabetic 31 gauge x #100 ea 04/01/21 10/14/21 Unknown Rx 1 (Comfort EZ Pen [place]) Lactobacillus 1 cap PO DAILY 30 Days #30 cap 08/10/21 10/14/21 10/13/21 Rx acidophilus-Bifidobac.animalis 2.5 billion cell capsule (Daily Probiotic) menthol-colloidal oatmeal 0.1 % 1 ea TOPICAL DAILY 30 Days #200 ml 08/10/21 10/14/21 10/13/21 Rx lotion (Eucerin Calming Itch-Relief) fluticasone propionate 50 See Rx Instructions .ROUTE 08/27/21 10/14/21 10/13/21 Rx mcg/actuation nasal .COMPLEX #16 g spray,suspension lancets 30 gauge (TRUEplus Lancets) See Rx Instructions .ROUTE 09/13/21 10/14/21 10/13/21 Rx .COMPLEX #100 ea nitroglycerin 400 mcg/spray See Rx Instructions .ROUTE 09/16/21 10/14/21 Unknown Rx translingual .COMPLEX #4.9 g amlodipine 5 mg tablet 5 mg PO QAM #90 tab 10/04/21 10/14/21 10/13/21 Rx dulaglutide 1.5 mg/0.5 mL See Rx Instructions .ROUTE 10/04/21 10/14/21 10/08/21 Rx subcutaneous pen injector .COMPLEX #2 ml (Trulicity) evolocumab 420 mg/3.5 mL See Rx Instructions .ROUTE 10/04/21 10/14/21 Unknown Rx subcutaneous wearable injector .COMPLEX #3.5 ml (Repatha Pushtronex) fluconazole 150 mg tablet 150 mg PO DAILY #7 tab 10/04/21 10/14/21 10/13/21 Rx (Diflucan) fluticasone propionate 50 2 inh INHALATION BID #60 ea 10/04/21 10/14/21 10/13/21 Rx mcg/actuation blister powder for inhalation (Flovent Diskus) furosemide 80 mg tablet (Lasix) 80 mg PO QAM #30 tab 10/04/21 10/14/21 10/13/21 Rx insulin admin supplies (InPen (for #150 ea 10/04/21 10/14/21 Unknown Rx Humalog)) isosorbide mononitrate 30 mg 30 mg PO BID #180 tab 10/04/21 10/14/21 10/13/21 Rx tablet,extended release 24 hr lisinopril 10 mg tablet 10 mg PO DAILY #90 tab 10/04/21 10/14/21 10/13/21 Rx metoprolol tartrate 50 mg tablet 50 mg PO .COMPLEX #270 tab 10/04/21 10/14/21 10/13/21 Rx nystatin 100,000 unit/gram topical 1 applic TOPICAL BID #30 g 10/04/21 10/14/21 10/13/21 Rx cream potassium chloride 10 mEq 10 meq PO DAILY #30 tab 10/04/21 10/14/21 10/13/21 Rx tablet,extended release ticagrelor 90 mg tablet (Brilinta) 90 mg PO BID #180 tab 10/04/21 10/14/21 Unknown Rx aspirin 81 mg tablet,delayed 81 mg PO DAILY 10/14/21 10/14/21 10/13/21 History release atorvastatin 40 mg tablet 40 mg PO DAILY 10/14/21 10/14/21 10/13/21 History bupropion HCl 200 mg tablet,12 hr 200 mg PO Q12H 10/14/21 10/14/21 10/13/21 History sustained-release buspirone 15 mg tablet 15 mg PO DAILY 10/14/21 10/14/21 10/13/21 History buspirone 7.5 mg tablet 7.5 mg PO BID 10/14/21 10/14/21 10/13/21 History cyclobenzaprine 10 mg tablet 10 mg PO PRN PRN 10/14/21 10/14/21 Unknown History insulin glargine 100 unit/mL (3 30 unit SUBCUT QAM 10/14/21 10/14/21 10/13/21 History mL) subcutaneous pen (Lantus Solostar U-100 Insulin) insulin lispro 100 unit/mL 29 unit SUBCUT .TIDAC 10/14/21 10/14/21 10/13/21 History subcutaneous pen (Humalog KwikPen (U-100) Insulin) lubiprostone 8 mcg capsule 8 mcg PO PRN PRN 10/14/21 10/14/21 10/13/21 History metformin 1,000 mg tablet 1,000 mg PO DAILY 10/14/21 10/14/21 10/13/21 History ropinirole 0.25 mg tablet 0.25 mg PO BEDTIME 10/14/21 10/14/21 10/13/21 History Allergies Allergy/AdvReac Type Severity Reaction Status Date / Time ciprofloxacin [From Cipro] Allergy hives Verified 10/14/21 12:36 citalopram Allergy effects Verified 10/14/21 12:36 speach and memory clopidogrel [From Plavix] Allergy unk Verified 10/14/21 12:36 ibuprofen Allergy RASH/ Verified 10/14/21 12:36 SWELLING morphine Allergy ITCHING Verified 10/14/21 12:36 famotidine AdvReac Mild itching Verified 10/14/21 12:36 esomeprazole [From Nexium] AdvReac Unknown Verified 10/14/21 12:36 [facility] Anesthesia Medical History Bilateral lower extremity edema CAD (coronary artery disease) Chronic cystitis Chronic low back pain Constipation CVA (cerebral vascular accident) DM type 2 (diabetes mellitus, type 2) Dyslipidemia GERD (gastroesophageal reflux disease) Gross hematuria HTN (hypertension) Long-term use of high-risk medication Migraine headache Morbid obesity Opioid contract exists BETH (obstructive sleep apnea) Osteoporosis Pulmonary embolism, bilateral RLS (restless legs syndrome) Surgical History H/O heart artery stent History of partial surgical removal of colon Hx of total knee replacement S/P appendectomy S/P cholecystectomy S/P hysterectomy S/P tonsillectomy and adenoidectomy Family History Grandfather Cancer Family/Other Myocardial infarct MOTHER, FATHER, BROTHER, SISTER Hypertension Diabetes Mother CAD (coronary artery disease) Father CAD (coronary artery disease) Sister CAD (coronary artery disease) Brother CAD (coronary artery disease) Other Stroke Denies family history of Anesthesia complication Bleeding disorder Social History Smoking and tobacco status: never smoked Alcohol intake: never Other details last substance use: smokes marijuana at night Lives independently: Yes Marital status: Current occupational status: disabled History of recent travel: No Data Anesthesia : 10/14/21 09:40 10/14/21 09:40 Short CBC 10/14/21 Range/Units 09:40 WBC 10.3 H (4.0-10.0) 10^3/uL Hgb 14.6 (11.5-15.3) g/dL Hct 45.7 (37.0-47.0) % MCV 80.5 L (81-99) fl Plt Count 356 (130-400) 10^3/cmm Neut % (Auto) 59.5 % Neut # (Auto) 6.12 (1.8-7.7) 10^3/uL BMP 10/14/21 09:40 Sodium 136 Potassium 3.6 Chloride 100 Carbon Dioxide 25 BUN 20 Creatinine 1.0 H Glucose 243 H Calcium 9.7 Liver Function 10/14/21 Range/Units 09:40 Total Bilirubin 0.2 (0.15-1.2) mg/dL AST 11 (0-32) U/L ALT 9 (0-33) U/L Alkaline Phosphatase 136 H (35-105) IU/L Albumin 3.6 (3.5-5.2) g/dL Urine 10/14/21 Range/Units 09:11 Urine Color Yellow (Yellow) Urine Appearance Cloudy (CLEAR) Urine pH 5 (5-7) Ur Specific [place] 1.025 (1.005-1.030) Urine Protein Neg (Negative) Urine Glucose (UA) 4+ H (Normal) Urine Ketones Negative (Negative) Urine Nitrate Negative (Negative) Urine Bilirubin Neg (Negative) Ur Leukocyte Esterase Negative (Negative) Urine RBC 25-40 H (0-2) /hpf Urine WBC 15-25 H (0-5) /hpf Cardiac Studies: No Data to Display
--- NOTE | 2021-10-14 12:28 | PM.HP ---
Providers/Chief Complaint Admitting Physician: Mika Whitman MD Primary Care Provider: Michelle Billy MD Chief Complaint: abdominal pain/blood in urine History of Present Illness Ms. Watson Bridges is a pleasant 60 year old female morbidly obese, with history of DM II.HT,with a current weight of 274 pounds and a BMI 48.5, patient presents to the ER with worsening abdominal pain particularly towards the right side of the abdomen being more sharp nothing seems to make it better or worse. Apparently the patient had recent surgery in the form of laparoscopic hernia repair with mesh placement in [facility] in June 2021. Unfortunately I do not have available operative report. Blood work in the ER showed WBC count 10.3, hemoglobin of 14.6 and a platelet count of 356. Sodium 136 potassium 3.6 creatinine of 1 and lactic acid is pending at the moment General surgery was consulted after a CT scan of the abdomen pelvis was obtained that showed; 1.? RIGHT periumbilical lower abdominal wall hernia with herniated and obstructed loop of enhancing fluid-filled dilated small bowel with surrounding inflammatory stranding and edema. Hernia mouth appears relatively narrow. No free air or pneumatosis. Recommend surgical consultation. 2.? New small bowel anastomosis in the LEFT lower quadrant with a slightly prominent fluid-filled loop of small bowel at the anastomosis. No evidence of high-grade obstruction. 3.? No other changes compared to previous. 4.? Hepatomegaly with diffuse fatty infiltration. 5.? Normal caliber abdominal aorta. 6.? Sigmoid diverticulosis. General surgery was consulted for further evaluation potential intervention Review of Systems General: Reports: 10 or more systems reviewed and unremarkable except in HPI and below Medications/Allergies Home Medications Medication Instructions Recorded Confirmed Last Taken Type walker with seat and brakes #1 ea 03/26/20 10/14/21 08/08/20 22:30 Rx diabetic shoes and inserts #1 ea 05/13/20 10/14/21 08/08/20 22:30 Rx hydrocodone 10 mg-acetaminophen 1 tab PO Q6H PRN 30 Days #120 tab 05/27/20 10/14/21 10/13/21 Rx 325 mg tablet insulin syringe,safetyneedle 1 mL #100 ea 05/27/20 10/14/21 08/08/20 22:30 Rx 29 gauge x 1/2 (Assure ID Insulin Safety) Tums 1 - 2 wafer PO Q4H PRN 08/11/20 10/14/21 12/10/20 History flash glucose scanning reader #1 ea 09/30/20 10/14/21 Unknown Rx (FreeStyle [place] 2 [place]) flash glucose sensor (FreeStyle #1 ea 09/30/20 10/14/21 Unknown Rx Sangita 2 Sensor) marijuana 11/11/20 10/14/21 Unknown History insulin syringe-needle U-100 1/2 #100 ea 04/01/21 10/14/21 Unknown Rx mL 31 gauge x 15/64 (BD Veo Insulin Syringe Ultra-Fine) pen needle, diabetic 31 gauge x #100 ea 04/01/21 10/14/21 Unknown Rx 1/4 (Comfort EZ Pen [place]) Lactobacillus 1 cap PO DAILY 30 Days #30 cap 08/10/21 10/14/21 10/13/21 Rx acidophilus-Bifidobac.animalis 2.5 billion cell capsule (Daily Probiotic) menthol-colloidal oatmeal 0.1 % 1 ea TOPICAL DAILY 30 Days #200 ml 08/10/21 10/14/21 10/13/21 Rx lotion (Eucerin Calming Itch-Relief) fluticasone propionate 50 See Rx Instructions .ROUTE 08/27/21 10/14/21 10/13/21 Rx mcg/actuation nasal .COMPLEX #16 g spray,suspension lancets 30 gauge (TRUEplus Lancets) See Rx Instructions .ROUTE 09/13/21 10/14/21 10/13/21 Rx .COMPLEX #100 ea nitroglycerin 400 mcg/spray See Rx Instructions .ROUTE 09/16/21 10/14/21 Unknown Rx translingual .COMPLEX #4.9 g amlodipine 5 mg tablet 5 mg PO QAM #90 tab 10/04/21 10/14/21 10/13/21 Rx dulaglutide 1.5 mg/0.5 mL See Rx Instructions .ROUTE 10/04/21 10/14/21 10/08/21 Rx subcutaneous pen injector .COMPLEX #2 ml (Trulicity) evolocumab 420 mg/3.5 mL See Rx Instructions .ROUTE 10/04/21 10/14/21 Unknown Rx subcutaneous wearable injector .COMPLEX #3.5 ml (Repatha Pushtronex) fluconazole 150 mg tablet 150 mg PO DAILY #7 tab 10/04/21 10/14/21 10/13/21 Rx (Diflucan) fluticasone propionate 50 2 inh INHALATION BID #60 ea 10/04/21 10/14/21 10/13/21 Rx mcg/actuation blister powder for inhalation (Flovent Diskus) furosemide 80 mg tablet (Lasix) 80 mg PO QAM #30 tab 10/04/21 10/14/21 10/13/21 Rx insulin admin supplies (InPen (for #150 ea 10/04/21 10/14/21 Unknown Rx Humalog)) isosorbide mononitrate 30 mg 30 mg PO BID #180 tab 10/04/21 10/14/21 10/13/21 Rx tablet,extended release 24 hr lisinopril 10 mg tablet 10 mg PO DAILY #90 tab 10/04/21 10/14/21 10/13/21 Rx metoprolol tartrate 50 mg tablet 50 mg PO .COMPLEX #270 tab 10/04/21 10/14/21 10/13/21 Rx nystatin 100,000 unit/gram topical 1 applic TOPICAL BID #30 g 10/04/21 10/14/21 10/13/21 Rx cream potassium chloride 10 mEq 10 meq PO DAILY #30 tab 10/04/21 10/14/21 10/13/21 Rx tablet,extended release ticagrelor 90 mg tablet (Brilinta) 90 mg PO BID #180 tab 10/04/21 10/14/21 Unknown Rx aspirin 81 mg tablet,delayed 81 mg PO DAILY 10/14/21 10/14/21 10/13/21 History release atorvastatin 40 mg tablet 40 mg PO DAILY 10/14/21 10/14/21 10/13/21 History bupropion HCl 200 mg tablet,12 hr 200 mg PO Q12H 10/14/21 10/14/21 10/13/21 History sustained-release buspirone 15 mg tablet 15 mg PO DAILY 10/14/21 10/14/21 10/13/21 History buspirone 7.5 mg tablet 7.5 mg PO BID 10/14/21 10/14/21 10/13/21 History cyclobenzaprine 10 mg tablet 10 mg PO PRN PRN 10/14/21 10/14/21 Unknown History insulin glargine 100 unit/mL (3 30 unit SUBCUT QAM 10/14/21 10/14/21 10/13/21 History mL) subcutaneous pen (Lantus Solostar U-100 Insulin) insulin lispro 100 unit/mL 29 unit SUBCUT .TIDAC 10/14/21 10/14/21 10/13/21 History subcutaneous pen (Humalog KwikPen (U-100) Insulin) lubiprostone 8 mcg capsule 8 mcg PO PRN PRN 10/14/21 10/14/21 10/13/21 History metformin 1,000 mg tablet 1,000 mg PO DAILY 10/14/21 10/14/21 10/13/21 History ropinirole 0.25 mg tablet 0.25 mg PO BEDTIME 10/14/21 10/14/21 10/13/21 History Allergies Allergy/AdvReac Type Severity Reaction Status Date / Time ciprofloxacin [From Cipro] Allergy hives Verified 10/14/21 12:36 citalopram Allergy effects Verified 10/14/21 12:36 speach and memory clopidogrel [From Plavix] Allergy unk Verified 10/14/21 12:36 ibuprofen Allergy RASH/ Verified 10/14/21 12:36 SWELLING morphine Allergy ITCHING Verified 10/14/21 12:36 famotidine AdvReac Mild itching Verified 10/14/21 12:36 esomeprazole [From Nexium] AdvReac Unknown Verified 10/14/21 12:36 PFSH Acute PFSH: Medical History Bilateral lower extremity edema CAD (coronary artery disease) Chronic cystitis Chronic low back pain Constipation CVA (cerebral vascular accident) DM type 2 (diabetes mellitus, type 2) Dyslipidemia GERD (gastroesophageal reflux disease) Gross hematuria HTN (hypertension) Long-term use of high-risk medication Migraine headache Morbid obesity Opioid contract exists BETH (obstructive sleep apnea) Osteoporosis Pulmonary embolism, bilateral RLS (restless legs syndrome) Surgical History H/O heart artery stent History of partial surgical removal of colon Hx of total knee replacement S/P appendectomy S/P cholecystectomy S/P hysterectomy S/P tonsillectomy and adenoidectomy Family History Grandfather Cancer Family/Other Myocardial infarct MOTHER, FATHER, BROTHER, SISTER Hypertension Diabetes Mother CAD (coronary artery disease) Father CAD (coronary artery disease) Sister CAD (coronary artery disease) Brother CAD (coronary artery disease) Other Stroke Denies family history of Anesthesia complication Bleeding disorder Social History Smoking and tobacco status: never smoked Alcohol intake: never Other details last substance use: smokes marijuana at night Lives independently: Yes Marital status: Current occupational status: disabled History of recent travel: No Vitals/I&O/Wt Last Vital Signs Temp 98 F 10/14/21 11:10 Pulse 82 10/14/21 12:25 Resp 16 10/14/21 12:25 BP 172/91 10/14/21 12:25 Pulse Ox 96 10/14/21 12:25 Weight last 48 hrs Weight 274 lb Physical Exam Narrative: Patient is conscious alert oriented X3 No apparent distress BMI 48.5 Head and neck examination PERRLA no masses no cervical lymphadenopathy no jaundice Cardiac examination audible S1-S2 no murmurs no gallops no arrhythmias Chest is clear bilateral,abscence of Rhonchi or wheezes,no surgical emphysema Abdomen right-sided abdominal wall tenderess coinciding with the strangulated loop of bowel soft no organomegaly guarding or rigidity/no signs of peritonitis Morbidly obese Extremities no cyanosis no clubbing no edema Data : 10/14/21 09:40 10/14/21 09:40 A&P Assessment and plan (1) Small bowel strangulation: Plan of care; After thorough history physical examination and reviewing the chart.I counseled the patient for open Ventral incisional Hernia repair with possible mesh placement . indications, risks including but not limited to potential injury of viscera, vascular structures that may require conversion to open, possible infection of the mesh and hernia recurrence that may require surgical intervention.benefits,indications and alternatives were all discussed with the patient, patient understands and is interested to proceed. Rationale was carefully and clearly discussed with the patient.Appropriate informed consent have been reviewed and signed. Patient understands that she is at higher isk of recurrence due to her morbid obesity status and previous hernia surgeries. 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
[2021-10-14 12:35] LABS: Lactic Sepsis W/Reflex 2.5 mmol/L (0.5-2.2)
--- NOTE | 2021-10-14 12:50 | P.CONIM_ITS ---
Providers/Reason For Consult Consulting Physician/Specialty*: Flo Villarreal MD Reason for Consult*: Medical management Attending Physician: Mika Whitman MD Primary Care Provider: Michelle Billy MD History of Present Illness History of Present Illness Watson Bridges is a 60 year old female who presented to the emergency department with 2 days of worsening abdominal discomfort. She reports it is mid abdominal, to right-sided abdominal discomfort. She previously had hernia surgery, with mesh in [place] several years ago. Niece who is present with her reports she has some abdominal discomfort every day for the last several weeks and occasional episodes of vomiting after eating. Patient herself also reports she is noted some blood in her urine lately. No fevers. Some dysuria. No blood in her stool, black or tarry stool, or hematemesis. She reports no problems with anesthesia in the past, or any bleeding disorder. Stopped Brilinta 1 or 2 months ago secondary to supply issues. Still taking aspirin. It has been over 1 year since she had any stent placement. She reports she occasionally has chest discomfort with exertion, which is normal for her. Reports she has sleep apnea, but does not have a machine at home. No chest pain in the last week. Review of Systems General: Reports: 10 or more systems reviewed and unremarkable except in HPI and below Const: Denies: fever(s) or chills Eyes: Denies: change in vision ENMT: Denies: throat pain Card: Reports: chest pain Resp: Reports: wheezing (Occasionally, history of asthma) GI: Reports: abdominal pain, nausea and vomiting : Reports: dysuria and hematuria Musc: Denies: neck pain Skin/Breast: Denies: rash Neuro: Denies: headache(s) Psych: Denies: anxiety or depression Endo: Denies: polyuria Soham/Lymph: Denies: easy bruising All/Imm: Denies: urticaria Medications/Allergies Home Medications Medication Instructions Recorded Confirmed Last Taken Type walker with seat and brakes #1 ea 03/26/20 10/14/21 08/08/20 22:30 Rx diabetic shoes and inserts #1 ea 05/13/20 10/14/21 08/08/20 22:30 Rx hydrocodone 10 mg-acetaminophen 1 tab PO Q6H PRN 30 Days #120 tab 05/27/20 10/14/21 10/13/21 Rx 325 mg tablet insulin syringe,safetyneedle 1 mL #100 ea 05/27/20 10/14/21 08/08/20 22:30 Rx 29 gauge x 1/2 (Assure ID Insulin Safety) Tums 1 - 2 wafer PO Q4H PRN 08/11/20 10/14/21 12/10/20 History flash glucose scanning reader #1 ea 09/30/20 10/14/21 Unknown Rx (FreeStyle [place] 2 [place]) flash glucose sensor (FreeStyle #1 ea 09/30/20 10/14/21 Unknown Rx Sangita 2 Sensor) marijuana 11/11/20 10/14/21 Unknown History insulin syringe-needle U-100 1/2 #100 ea 04/01/21 10/14/21 Unknown Rx mL 31 gauge x 15/64 (BD Veo Insulin Syringe Ultra-Fine) pen needle, diabetic 31 gauge x #100 ea 04/01/21 10/14/21 Unknown Rx 1/4 (Comfort EZ Pen [place]) Lactobacillus 1 cap PO DAILY 30 Days #30 cap 08/10/21 10/14/21 10/13/21 Rx acidophilus-Bifidobac.animalis 2.5 billion cell capsule (Daily Probiotic) menthol-colloidal oatmeal 0.1 % 1 ea TOPICAL DAILY 30 Days #200 ml 08/10/21 10/14/21 10/13/21 Rx lotion (Eucerin Calming Itch-Relief) fluticasone propionate 50 See Rx Instructions .ROUTE 08/27/21 10/14/21 10/13/21 Rx mcg/actuation nasal .COMPLEX #16 g spray,suspension lancets 30 gauge (TRUEplus Lancets) See Rx Instructions .ROUTE 09/13/21 10/14/21 10/13/21 Rx .COMPLEX #100 ea nitroglycerin 400 mcg/spray See Rx Instructions .ROUTE 09/16/21 10/14/21 Unknown Rx translingual .COMPLEX #4.9 g amlodipine 5 mg tablet 5 mg PO QAM #90 tab 10/04/21 10/14/21 10/13/21 Rx dulaglutide 1.5 mg/0.5 mL See Rx Instructions .ROUTE 10/04/21 10/14/21 10/08/21 Rx subcutaneous pen injector .COMPLEX #2 ml (Trulicity) evolocumab 420 mg/3.5 mL See Rx Instructions .ROUTE 10/04/21 10/14/21 Unknown Rx subcutaneous wearable injector .COMPLEX #3.5 ml (Repatha Pushtronex) fluconazole 150 mg tablet 150 mg PO DAILY #7 tab 10/04/21 10/14/21 10/13/21 Rx (Diflucan) fluticasone propionate 50 2 inh INHALATION BID #60 ea 10/04/21 10/14/21 10/13/21 Rx mcg/actuation blister powder for inhalation (Flovent Diskus) furosemide 80 mg tablet (Lasix) 80 mg PO QAM #30 tab 10/04/21 10/14/21 10/13/21 Rx insulin admin supplies (InPen (for #150 ea 10/04/21 10/14/21 Unknown Rx Humalog)) isosorbide mononitrate 30 mg 30 mg PO BID #180 tab 10/04/21 10/14/21 10/13/21 Rx tablet,extended release 24 hr lisinopril 10 mg tablet 10 mg PO DAILY #90 tab 10/04/21 10/14/21 10/13/21 Rx metoprolol tartrate 50 mg tablet 50 mg PO .COMPLEX #270 tab 10/04/21 10/14/21 10/13/21 Rx nystatin 100,000 unit/gram topical 1 applic TOPICAL BID #30 g 10/04/21 10/14/21 10/13/21 Rx cream potassium chloride 10 mEq 10 meq PO DAILY #30 tab 10/04/21 10/14/21 10/13/21 Rx tablet,extended release ticagrelor 90 mg tablet (Brilinta) 90 mg PO BID #180 tab 10/04/21 10/14/21 Unknown Rx aspirin 81 mg tablet,delayed 81 mg PO DAILY 10/14/21 10/14/21 10/13/21 History release atorvastatin 40 mg tablet 40 mg PO DAILY 10/14/21 10/14/21 10/13/21 History bupropion HCl 200 mg tablet,12 hr 200 mg PO Q12H 10/14/21 10/14/21 10/13/21 History sustained-release buspirone 15 mg tablet 15 mg PO DAILY 10/14/21 10/14/21 10/13/21 History buspirone 7.5 mg tablet 7.5 mg PO BID 10/14/21 10/14/21 10/13/21 History cyclobenzaprine 10 mg tablet 10 mg PO PRN PRN 10/14/21 10/14/21 Unknown History insulin glargine 100 unit/mL (3 30 unit SUBCUT QAM 10/14/21 10/14/21 10/13/21 History mL) subcutaneous pen (Lantus Solostar U-100 Insulin) insulin lispro 100 unit/mL 29 unit SUBCUT .TIDAC 10/14/21 10/14/21 10/13/21 History subcutaneous pen (Humalog KwikPen (U-100) Insulin) lubiprostone 8 mcg capsule 8 mcg PO PRN PRN 10/14/21 10/14/21 10/13/21 History metformin 1,000 mg tablet 1,000 mg PO DAILY 10/14/21 10/14/21 10/13/21 History ropinirole 0.25 mg tablet 0.25 mg PO BEDTIME 10/14/21 10/14/21 10/13/21 History Allergies Allergy/AdvReac Type Severity Reaction Status Date / Time ciprofloxacin [From Cipro] Allergy hives Verified 10/14/21 12:36 citalopram Allergy effects Verified 10/14/21 12:36 speach and memory clopidogrel [From Plavix] Allergy unk Verified 10/14/21 12:36 ibuprofen Allergy RASH/ Verified 10/14/21 12:36 SWELLING morphine Allergy ITCHING Verified 10/14/21 12:36 famotidine AdvReac Mild itching Verified 10/14/21 12:36 esomeprazole [From Nexium] AdvReac Unknown Verified 10/14/21 12:36 PFSH Acute PFSH: Medical History Bilateral lower extremity edema CAD (coronary artery disease) Chronic cystitis Chronic low back pain Constipation CVA (cerebral vascular accident) DM type 2 (diabetes mellitus, type 2) Dyslipidemia GERD (gastroesophageal reflux disease) Gross hematuria HTN (hypertension) Long-term use of high-risk medication Migraine headache Morbid obesity Opioid contract exists BETH (obstructive sleep apnea) Osteoporosis Pulmonary embolism, bilateral RLS (restless legs syndrome) Surgical History H/O heart artery stent History of partial surgical removal of colon Hx of total knee replacement S/P appendectomy S/P cholecystectomy S/P hysterectomy S/P tonsillectomy and adenoidectomy Family History Grandfather Cancer Family/Other Myocardial infarct MOTHER, FATHER, BROTHER, SISTER Hypertension Diabetes Mother CAD (coronary artery disease) Father CAD (coronary artery disease) Sister CAD (coronary artery disease) Brother CAD (coronary artery disease) Other Stroke Denies family history of Anesthesia complication Bleeding disorder Social History Smoking and tobacco status: never smoked Alcohol intake: never Other details last substance use: smokes marijuana at night Lives independently: Yes Marital status: Current occupational status: disabled History of recent travel: No Vitals/I&O/Wt Last Vital Signs Temp 98 F 10/14/21 11:10 Pulse 82 10/14/21 12:25 Resp 16 10/14/21 12:25 BP 172/91 10/14/21 12:25 Pulse Ox 96 10/14/21 12:25 Weight last 48 hrs Weight 124.284 kg Physical Exam Narrative: General exam is a white female, sometimes slow to answer questions at times, in no apparent distress and pleasant. HEENT: Atraumatic normocephalic. Pupils equally round. Oropharynx clear. Edentulous Neck is supple no lymphadenopathy or thyromegaly Cardiovascular regular rate and rhythm without murmur, no S3 or S4 Lungs clear no wheezing or crackles Abdomen is soft. Tenderness is present over mid quadrants, more so on the ri ght, with mass felt. No obvious organomegaly. exam is deferred Extremities no cyanosis clubbing or edema, cap refill brisk Skin no rash Neuro no obvious focal deficits. Data : 10/14/21 09:40 10/14/21 09:40 Micro: LFTs normal with the exception of alk phos of 136 lactate 2.5, lipase 19, albumin 3.6, calcium 9.7 Urinalysis shows 25-40 red blood cells, 15-25 white blood cells, 15-25 squamous. 1+ bacteria is noted. Abdomen pelvis CT demonstrates right periumbilical abdominal wall hernia with herniated and obstructed loop of small bowel with surrounding inflammation and edema. Hepatomegaly and diffuse fatty infiltration also noted. EKG demonstrates sinus rhythm, normal axis, nonspecific ST-T wave flattening. No significant acute changes noted. A&P Assessment and plan (1) Small bowel strangulation: She is going to the OR OR for strangulated bowel. Secondary to her history of chest pain, which is described somewhat is chronic and her comorbidities she will be at higher risk but there is nothing at this point that can be done in the short-term to lower risk. Note that her lactate was slightly elevated. Diagnosis of any ischemic bowel will be made during surgery if present. Status: Acute (2) DM type 2 (diabetes mellitus, type 2): Sliding scale insulin, following surgery We will hold Metformin following surgery as she received radiological dye. Status: Chronic Qualifiers: Diabetes mellitus longterm insulin use: without terminal superintendent use Diabetes mellitus complication status: without complication Qualified Code(s): E11.9 - Type 2 diabetes mellitus without complications (3) CAD (coronary artery disease): Would continue her regular home medicines including aspirin, statin, nitrate, beta-marjorie. She is also to be on Brilinta, which can be restarted when she is safe from a surgical standpoint. Status: Acute Qualifiers: Coronary Disease-Associated Artery/Lesion type: [place] artery [place] vs. transplanted heart: [place] heart Associated angina: angina presence unspecified Qualified Code(s): I25.10 - Atherosclerotic heart disease of [place] coronary artery without angina pectoris (4) HTN (hypertension): Continue home medications following surgery Status: Chronic Qualifiers: Hypertension type: essential hypertension Qualified Code(s): I10 - Essential (primary) hypertension Plan Multiple other medical problems as outlined in past medical history Full code Heparin or Lovenox for DVT prophylaxis, following surgery. Thank you for this consultation. 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 transplanted heart: [place] heart Associated angina: angina presence unspecified HTN (hypertension) I10 Hypertension type: essential hypertension
[2021-10-14] MEDS: insulin regular-human 100 units/1 mL 6 UNIT IVP (13:03)
[2021-10-14] MEDS: sodium chloride 0.9% 1,000 ML 30 ML IV (13:04)
[2021-10-14] MEDS: heparin 5,000 unit/mL INJ 1 mL 2000 UNIT IVP (13:04)
[2021-10-14] MEDS: acetaminophen 1,000 MG/100 ML PIGGYBACK 400 MG IV (13:05)
[2021-10-14] MEDS: piperacillin-tazobactam 3.375 GM in sodium chloride 0.9% (plus) 50 ML IV ×2 (13:17→20:57)
[2021-10-14 13:56] LABS: Reflex Lactate Order REFLEX LACTIC ORDERD
[2021-10-14] MEDS: sodium chloride 0.9% 50 ML (14:16)
--- NOTE | 2021-10-14 14:50 | SUR.OPER ---
glucose 171 per anesthesia
[2021-10-14 15:04] LABS: Glucose Point of Care 171 mg/dL (70-110)
--- NOTE | 2021-10-14 15:19 | PM.OP ---
Operative Report Date of procedure: October 14, 2021 Pre-op diagnosis: Preop Diagnosis Strangulated ventral hernia Post-op diagnosis: Concern for iInfected seroma with outpouching of the small bowel without distinct herniation Post-op findings: Viable small bowel Procedure done: 1-Explantation of abdominal wall mesh 2-Open ventral hernia repair without mesh placement Specimens removed/disposition: Abdominal wall mesh for for culture and sensitivity Seroma swabs were sent for cultures and sensitivities aerobes and anaerobes Hernial sac and content Surgeon: Mika Whitman MD Senior Nurse Manager: hvac technician Johanna/Eboni Panchal and Arnaud Circulating nurses Bryanna and Serena Johnson Estimated blood loss (mL): 20 IV fluids (mL): 1,350 IV fluids: 250 ml 5% albumin Urine output: Minimal Procedure: Patient was identified in holding area and the site of the hernia was marked by me ,Patient was brought then to the operating room, general endotracheal anesthesia was administered by the anesthesia provider.prophylactic IV antibiotics were given per protocol Timeout was done verifying the patient's name/date of /planned procedure and destination after the procedure, all were in agreement. SCDs confirmed to be functioning, preoperative antibiotics administered per protocol, and beta marjorie protocol was confirmed. Prep and drape of the abdomen was done under the usual sterile technique. I started by supraumbilical skin incision,and dissection was carried till the bowel loop of concern and was found that patient has outpouching of the mesh as it was redundant with a surrounding fluid collection likely seroma with concern of infection that was evacuated and swabs were obtained. Intraoperative communication with Dr. Prescott radiologist over the phone did take place as I did mention the intraoperative findings in the form of outpouching of the small bowel but no distinct herniation, with presence of seroma surrounding the mesh but likely look like a small bowel on the CT scan As There was no actual herniation of bowel loops yet the mesh was in place and underlying the bowel were out pouching at that point I decided to explant the old mesh and it was explanted very easily indicating potential infection, and redundant hernial sac was taken out as well, the old mesh was sent for permanent pathology and part of the mesh was sent for cultures and sensitivities. And the hernial sac was sent for pathology. Now the defect was about 4 inches in diameter, copious and thorough irrigation followed by suction was done and I decided to close the peritoneum using Vicryl sutures followed by primary closure of the attenuated fascia with #1 PDS sutures under direct visualization. There was no evidence of trish pus. Layers of the abdominal wall were closed subsequently after appropriate irrigation followed by skin jonathan for the skin. Appropriate hemostasis was achieved during closure. I felt at this point it would be less advised to use any kind of mesh because of the local environment likely the patient will require permanent repair using laparoscopic approach down the road. Exparel injection followed by dry dressing..Followed by appropraie size Abdominal Binder. Counts of sponges,needles and instruments were completed at the end of the procedure and specimen was verified. Patient tolerated the procedure well and was taken to the recovery area in stable condition after Extubation I was present for the whole entire procedure
[2021-10-14] MEDS: fentaNYL 50 mcg/mL INJ 2mL IVP (16:01)
--- NOTE | 2021-10-14 16:07 | SUR.PHASEI ---
15:31 received patient from or staff. nsr on monitor.ventilating well. a+o x3.
--- NOTE | 2021-10-14 16:08 | SUR.PHASEI ---
blood glucose 177mg/dL . art line dc'ed pressure applied for 5 minutes .pressure dressing applied.
[2021-10-14 16:29] LABS: Glucose Point of Care 177 mg/dL (70-110)
--- NOTE | 2021-10-14 16:33 | SUR.PHASEI ---
report given to 2 [facility] nurse .patient stable for transport
[2021-10-14] MEDS: sodium chloride 0.9% 1,000 ML 75 ML IV (18:18)
[2021-10-14] MEDS: famotidine 20 mg/2 mL INJ IVP (18:18)
[2021-10-14] MEDS: insulin lispro 100 unit/1 mL SUBCUT ×2 (18:26→21:20)
--- NOTE | 2021-10-14 18:27 | PC.NURSE ---
Pt has dexcom on L arm with reader at bedside.
--- NOTE | 2021-10-14 18:47 | ANE.PACU2 ---
Inpatient post-anesthesia follow up: Airway intact: Yes Vital signs: Temperature 97.2 F Pulse Rate 74 Respiratory Rate 18 Blood Pressure 164/84 Pulse Oximetry 96 Oxygen Delivery Me thod Nasal Cannula Oxygen Flow Rate 3 Fraction of Inspir ed Oxygen Hydration adequate: Yes Nausea and vomiting: No Pain level: 1 Mental status: Baseline
[2021-10-14] MEDS: budesonide 0.5 mg/2 mL Neb INHALATION (20:50)
[2021-10-14] MEDS: isosorbide mononitrate ER 30 mg Tablet PO (21:09)
[2021-10-14] MEDS: buPROPion SR (12 HR) 100 mg Tablet 200 MG PO (21:09)
[2021-10-14] MEDS: metoprolol tartrate 50 mg Tablet PO (21:09)
[2021-10-14 21:46] LABS: Glucose Point of Care 184 mg/dL (70-110)
[2021-10-15] VITALS (7 sets, daily range): BP systolic 101–145; BP diastolic 57–69; PULSE 61–82; RESP 18–22; TEMP 36.3–36.7; O2SAT 93–96
[2021-10-15] MEDS: HYDROcodone-acetaminophen 5-325 mg Tablet 1 TAB PO ×2 (00:14→08:13)
[2021-10-15 02:07] LABS: Basophils % 0.2 %; Hematocrit 42.8 % (37.0-47.0); Hemoglobin 13.2 g/dL (11.5-15.3); Lymphocytes # 1.3 10^3/uL (0.8-4.8); Lymphocytes % 10.1 %; Mean Corpuscular HGB Conc 30.8 g/dL (30.0-36.0); Mean Corpuscular Hemoglobin 25.6 pg (28.0-34.0); Mean Corpuscular Volume 83.1 fl (81-99); Mean Platelet Volume 10.7 fL (7.4-10.4); Monocytes # 0.3 10^3/uL (0.2-0.9); Monocytes % 2.4 %; Neutrophils # 10.94 10^3/uL (1.8-7.7); Neutrophils % 86.9 %; Nucleated Red Blood Cells % 0 %; Platelet Count 331 10^3/cmm (130-400); Red Blood Count 5.15 10^6/uL (4.1-5.3); Red Cell Distribution Width 15.5 % (12.1-15.1); White Blood Count 12.6 10^3/uL (4.0-10.0)
[2021-10-15] MEDS: piperacillin-tazobactam 3.375 GM in sodium chloride 0.9% (plus) 50 ML IV ×2 (02:52→12:20)
[2021-10-15 03:29] LABS: Blood Urea Nitrogen 17 mg/dL (6-20); Calcium 8.5 mg/dL (8.5-10.5); Carbon Dioxide 17 mmol/L (22-29); Chloride 102 mmol/L (98-107); Glomerular Filtration Rate 73.7 mL/min (90-130); Glucose 293 mg/dL (65-115); Osmolality Calculated 284 mOsm/kg (285-295); Sodium 131 mmol/L (136-145)
[2021-10-15 03:40] LABS: Anion Gap 16.5 (5-19); Potassium 4.5 mmol/L (3.5-5.1)
[2021-10-15] MEDS: amlodipine 5 mg Tablet PO (05:12)
[2021-10-15] MEDS: heparin 5,000 unit/mL INJ 1 mL 5000 UNIT SUBCUT (05:12)
[2021-10-15] MEDS: famotidine 20 mg/2 mL INJ IVP (05:18)
[2021-10-15] MEDS: sodium chloride 0.9% 500 ML 999 ML IV (06:31)
--- NOTE | 2021-10-15 06:31 | PM.PN ---
Subjective Subjective: Patient overall seems to be doing well and pain under control. Marginal urine output. Tolerating p.o. intake Medications: Reviewed: Yes Vitals/I&O/Wt Last Vital Signs Temp 97.7 F 10/15/21 04:56 Pulse 76 10/15/21 06:00 Resp 18 10/15/21 04:56 BP 117/68 10/15/21 04:56 Pulse Ox 94 10/15/21 04:56 10/14/21 10/14/21 10/15/21 14:59 22:59 06:59 Intake Total 150 / 150 900 / 1050 50 / 1100 Output Total 270 / 270 125 / 395 Balance 150 / 150 630 / 780 -75 / 705 Weight last 48 hrs Weight 274 lb Physical Exam Narrative: Patient is conscious alert oriented X3 No apparent distress BMI 48.5 Head and neck examination PERRLA no masses no cervical lymphadenopathy no jaundice Cardiac examination audible S1-S2 no murmurs no gallops no arrhythmias Chest is clear bilateral,abscence of Rhonchi or wheezes,no surgical emphysema Abdomen nontender except mildly at the incision site. Nondistended soft no organomegaly guarding or rigidity/no signs of peritonitis Dressing was taken down and skin jonathan in place Extremities no cyanosis no clubbing no edema Urinary Catheter Management: Sahu Latex: Cath Placed During This Visit: yes Reason for Continuing Indwelling Catheter: Acute Urinary Retention or Obstruction Urinary Catheter Date of Insertion: 10/14/21 Urinary Catheter Time of Insertion: 13:40 Data : 10/15/21 01:50 10/15/21 01:50 Micro: Microbiology 10/14/21 14:30 Gram Stain - Final Abdomen 10/14/21 14:35 Gram Stain - Final Abdomen A&P Assessment and plan (1) Small bowel strangulation: Assessment 60 years old female patient morbidly obese status post open ventral hernia repair and explantation of mesh 10/14/2021 Plan From surgical standpoint of view we will advance diet as tolerated One-time bolus 500 mL of normal saline We will monitor urine output through the day if patient does have adequate urine output will DC Sahu catheter Likely will discharge home today on p.o. antibiotics for 7 days We will defer medical management to hospitalist service Education about keeping abdominal binder all the time Patient can shower but no soaking in tubs or Jacuzzis Encourage ambulation Incentive spirometer every hour. Assurance and education All questions have been answered and all concerns have been addressed to patient's satisfaction. 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
[2021-10-15] MEDS: sodium chloride 0.9% 1,000 ML 75 ML IV (06:33)
[2021-10-15 06:42] LABS: Glucose Point of Care 266 mg/dL (70-110)
--- NOTE | 2021-10-15 07:48 | P.PN_ITS ---
Subjective Subjective: No issues overnight. Output was poor. Patient denies any chest pain. States abdomen feels better. No nausea. Medications: Reviewed: Yes Vitals/I&O/Wt Last Vital Signs Temp 97.8 F 10/15/21 07:32 Pulse 82 10/15/21 07:32 Resp 18 10/15/21 07:32 BP 109/62 10/15/21 07:32 Pulse Ox 95 10/15/21 07:32 10/14/21 10/15/21 10/15/21 22:59 06:59 14:59 Intake Total 900 / 1050 968.75 / 2018.75 Output Total 270 / 270 125 / 395 Balance 630 / 780 843.75 / 1623.75 Weight last 48 hrs Weight 124.284 kg Physical Exam Narrative: General exam is a white female, no distress, asking when she can go home Neck is supple no lymphadenopathy or thyromegaly Cardiovascular regular rate and rhythm without murmur, no S3 or S4 Lungs clear no wheezing or crackles Abdomen demonstrates binder in place. Bowel sounds are noted. exam demonstrates Sahu with clear urine Extremities no cyanosis clubbing or edema, cap refill brisk Urinary Catheter Management: Sahu Latex: Cath Placed During This Visit: yes Reason for Continuing Indwelling Catheter: Acute Urinary Retention or Obstruction Urinary Catheter Date of Insertion: 10/14/21 Urinary Catheter Time of Insertion: 13:40 Data : 10/15/21 01:50 10/15/21 01:50 Micro: Microbiology 10/14/21 14:30 Gram Stain - Final Abdomen 10/14/21 14:35 Gram Stain - Final Abdomen A&P Assessment and plan (1) Small bowel strangulation: She is going to the OR OR for strangulated bowel. Secondary to her history of chest pain, which is described somewhat is chronic and her comorbidities she will be at higher risk but there is nothing at this point that can be done in the short-term to lower risk. She underwent surgery yesterday, and is postoperative day #1. Procedure was open ventral hernia repair without mesh placement, and explantation of abdominal wall mesh. Seroma was noted. No compromised bowel was found. Status: Suspected (2) DM type 2 (diabetes mellitus, type 2): Sliding scale insulin, following surgery We will hold Metformin following surgery as she received radiological dye. She may restart her Metformin on October 17. Status: Chronic Qualifiers: Diabetes mellitus mcfp insulin use: without buttermaker continuous churn use Diabetes mellitus complication status: without complication Qualified Code(s): E11.9 - Type 2 diabetes mellitus without complications (3) CAD (coronary artery disease): Would continue her regular home medicines including aspirin, statin, nitrate, beta-marjorie. She is also to be on Brilinta, which can be restarted when she is safe from a surgical standpoint. Status: Acute Qualifiers: Coronary Disease-Associated Artery/Lesion type: [place] artery [place] vs. transplanted heart: [place] heart Associated angina: angina presence unspec ified Qualified Code(s): I25.10 - Atherosclerotic heart disease of [place] coronary artery without angina pectoris (4) HTN (hypertension): Continue home medications following surgery Status: Chronic Qualifiers: Hypertension type: essential hypertension Qualified Code(s): I10 - Essential (primary) hypertension Plan Poor urine output overnight. She does not appear fluid depleted. Creatinine is very normal. We will resume her Lasix, lower dose this morning at 40 mg. IV fluids can be discontinued at this time Multiple other medical problems as outlined in past medical history Full code Heparin or Lovenox for DVT prophylaxis, following surgery. Thank you for this consultation. Attestations Medical Necessity Statement*: As per primary Coding Level of Care Code Acute Research Group Director for [facility] Diagnoses Small bowel strangulation K56.2 DM type 2 (diabetes mellitus, type 2) E11.9 Diabetes mellitus mcfp insulin use: without buttermaker continuous churn use Diabetes mellitus complication status: without complication CAD (coronary artery disease) I25.10 Coronary Disease-Associated Artery/Lesion type: [place] artery [place] vs. transplanted heart: [place] heart Associated angina: angina presence unspecified HTN (hypertension) I10 Hypertension type: essential hypertension
[2021-10-15] MEDS: buPROPion SR (12 HR) 100 mg Tablet 200 MG PO (08:13)
[2021-10-15] MEDS: FUROsemide 40 mg Tablet PO (08:13)
[2021-10-15] MEDS: BuSPIRONE 10 mg Tablet 15 MG PO (08:13)
[2021-10-15] MEDS: atorvastatin 40 mg Tablet PO (08:13)
[2021-10-15] MEDS: lisinopril 10 mg Tablet PO (08:14)
[2021-10-15] MEDS: ticagrelor 90 mg Tablet PO (08:14)
[2021-10-15] MEDS: metoprolol tartrate 50 mg Tablet 100 MG PO (08:14)
[2021-10-15] MEDS: insulin lispro 100 unit/1 mL SUBCUT ×2 (08:14→12:21)
[2021-10-15] MEDS: aspirin 81 mg EC Tablet PO (08:14)
[2021-10-15] MEDS: isosorbide mononitrate ER 30 mg Tablet PO (08:14)
[2021-10-15] MEDS: ipratropium-albuterol 3 mL Neb INHALATION (08:57)
[2021-10-15] MEDS: budesonide 0.5 mg/2 mL Neb INHALATION (08:57)
--- NOTE | 2021-10-15 08:58 | PC.NURSE ---
Pt's blood sugar 295 per dexcom. Insulin administered per sliding scale protocol.
--- NOTE | 2021-10-15 09:50 | PC.CHAP ---
Pastoral Care Encounter/Spiritual Assessment Type of Contact [] Declined supervisor salvage visit [] Patient/Family/Request visit [] Outpatient visit [] Follow-up visit [] Physician referral [] Code/Alert [x] Routine visit [] Staff referral [] Actively dying [] Patient sleeping [] Family support [] [] Out of room [] Palliative care [] [] Receiving care in room [] Pre-surgical visit [] Trauma [] Long length of stay [] ICU visit [] Other: Relational/Emotional Strength [x] Patient feels connected with others/family/visitors/staff [] Distress [] Loneliness/isolation [] Abandonment Spirituality of Patient [x] Person of Lizette [] Attends Buddhism of their Lizette []x Believes in Prayer [] Reads Bible or Alevism materials [] There are Spiritual issues to be addressed 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 Machine 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 Interventions [x] Prayer [x] Active listening [x] Non-anxious presence [] Spiritual/emotional support [] Crisis/trauma care [] Spiritual counseling [] Bereavement support [] Provided bereavement packet [] Provided Bible/devotional materials [] Provided toy/stuffed animal, coloring book to patient or family member [] Provided Communion [] Anointing/[place] [] Salvation [x] Completed spiritual assessment [] Other: Impact on Illness or Injury [] Angry [] Fearful [] Anxious [] Often cries [] Exhaustion [] Unable to work [] Unable to attend zoroastrian [] Unable to walk/stand [] Unable to read [] Unable to drive [] Unable to eat/drink [] Unable to sleep [] Unable to be with family [] Patient intubated [] Other: Summary Time spent with patient 10 min
--- NOTE | 2021-10-15 12:50 | PC.NURSE ---
Pt blood sugar 285. Insulin administered per sliding scale protocol.
--- NOTE | 2021-10-15 13:30 | P.SS_ITS ---
Short Stay Summary Providers Date of Admit/Discharge: 10/15/21 Attending Provider: Mika Whitman MD Consults: Dr. Villarreal Primary Care Provider: Michelle Billy MD Chief Complaint: abdominal pain/blood in urine HPI History of Present Illness Ms. Watson Bridges is a pleasant 60 year old female morbidly obese, with history of DM II.HT,with a current weight of 274 pounds and a BMI 48.5, patient presents to the ER with worsening abdominal pain particularly towards the right side of the abdomen being more sharp nothing seems to make it better or worse.? Apparently the patient had recent surgery in the form of laparoscopic hernia repair with mesh placement in [facility] in June 2021.? Unfortunately I do not have available operative report.? Blood work in the ER showed WBC count 10.3, hemoglobin of 14.6 and a platelet count of 356. Sodium 136 potassium 3.6 creatinine of 1 and lactic acid is pending at the moment General surgery was consulted after a CT scan of the abdomen pelvis was obtained that showed; 1.? RIGHT periumbilical lower abdominal wall hernia with herniated and obstructed loop of enhancing fluid-filled dilated small bowel with surrounding inflammatory stranding and edema. Hernia mouth appears relatively narrow. No free air or pneumatosis. Recommend surgical consultation. 2.? New small bowel anastomosis in the LEFT lower quadrant with a slightly prominent fluid-filled loop of small bowel at the anastomosis. No evidence of h igh-grade obstruction. 3.? No other changes compared to previous. 4.? Hepatomegaly with diffuse fatty infiltration. 5.? Normal caliber abdominal aorta. 6.? Sigmoid diverticulosis. General surgery was consulted for further evaluation potential intervention Review of Systems General: Reports: 10 or more systems reviewed and unremarkable except in HPI and below Home Meds/Allergies Home Medications and Allergies Home Medications Medication Instructions Recorded Confirmed Type Tums 1 - 2 wafer PO Q4H PRN 08/11/20 10/14/21 History marijuana 11/11/20 10/14/21 History aspirin 81 mg tablet,delayed 81 mg PO DAILY 10/14/21 10/14/21 History release atorvastatin 40 mg tablet 40 mg PO DAILY 10/14/21 10/14/21 History bupropion HCl 200 mg tablet,12 hr 200 mg PO Q12H 10/14/21 10/14/21 History sustained-release buspirone 15 mg tablet 15 mg PO DAILY 10/14/21 10/14/21 History buspirone 7.5 mg tablet 7.5 mg PO BID 10/14/21 10/14/21 History cyclobenzaprine 10 mg tablet 10 mg PO PRN PRN 10/14/21 10/14/21 History insulin glargine 100 unit/mL (3 30 unit SUBCUT QAM 10/14/21 10/14/21 History mL) subcutaneous pen (Lantus Solostar U-100 Insulin) insulin lispro 100 unit/mL 29 unit SUBCUT .TIDAC 10/14/21 10/14/21 History subcutaneous pen (Humalog KwikPen (U-100) Insulin) lubiprostone 8 mcg capsule 8 mcg PO PRN PRN 10/14/21 10/14/21 History metformin 1,000 mg tablet 1,000 mg PO DAILY 10/14/21 10/14/21 History ropinirole 0.25 mg tablet 0.25 mg PO BEDTIME 10/14/21 10/14/21 History Allergies Allergy/AdvReac Type Severity Reaction Status Date / Time ciprofloxacin [From Cipro] Allergy hives Verified 10/14/21 12:36 citalopram Allergy effects Verified 10/14/21 12:36 speach and memory clopidogrel [From Plavix] Allergy unk Verified 10/14/21 12:36 ibuprofen Allergy RASH/ Verified 10/14/21 12:36 SWELLING morphine Allergy ITCHING Verified 10/14/21 12:36 famotidine AdvReac Mild itching Verified 10/14/21 12:36 esomeprazole [From Nexium] AdvReac Unknown Verified 10/14/21 12:36 PFSH Acute PFSH: Medical History Bilateral lower extremity edema CAD (coronary artery disease) Chronic cystitis Chronic low back pain Constipation CVA (cerebral vascular accident) DM type 2 (diabetes mellitus, type 2) Dyslipidemia GERD (gastroesophageal reflux disease) Gross hematuria HTN (hypertension) Long-term use of high-risk medication Migraine headache Morbid obesity Opioid contract exists BETH (obstructive sleep apnea) Osteoporosis Pulmonary embolism, bilateral RLS (restless legs syndrome) Small bowel strangulation Surgical History H/O heart artery stent History of partial surgical removal of colon Hx of total knee replacement S/P appendectomy S/P cholecystectomy S/P hysterectomy S/P tonsillectomy and adenoidectomy Family History Grandfather Cancer Family/Other Myocardial infarct MOTHER, FATHER, BROTHER, SISTER Hypertension Diabetes Mother CAD (coronary artery disease) Father CAD (coronary artery disease) Sister CAD (coronary artery disease) Brother CAD (coronary artery disease) Other Stroke Denies family history of Anesthesia complication Bleeding disorder Social History Smoking and tobacco status: never smoked Alcohol intake: never Other details last substance use: smokes marijuana at night Lives independently: Yes Marital status: Current occupational status: disabled History of recent travel: No Vitals/I&O/Wt Last Vital Signs Temp 97.5 F L 10/15/21 11:21 Pulse 66 10/15/21 11:21 Resp 18 10/15/21 11:21 BP 101/57 10/15/21 11:21 Pulse Ox 95 10/15/21 11:21 10/14/21 10/15/21 10/15/21 22:59 06:59 14:59 Intake Total 900 / 1050 1018.75 / 2068.75 500 / 500 Output Total 270 / 270 125 / 395 750 / 750 Balance 630 / 780 893.75 / 1673.75 -250 / -250 Weight last 48 hrs Weight 274 lb Physical Exam Narrative: Patient is conscious alert oriented X3 No apparent distress BMI 48.5 Head and neck examination PERRLA no masses no cervical lymphadenopathy no jaundice Cardiac examination audible S1-S2 no murmurs no gallops no arrhythmias Chest is clear bilateral,abscence of Rhonchi or wheezes,no surgical emphysema Abdomen nontender except mildly at the incision site , skin jonathan in place without complication soft no organomegaly guarding or rigidity/no signs of peritonitis Sahu catheter in place with clear Extremities no cyanosis no clubbing no edema Urinary Catheter Management: Sahu Latex: Cath Placed During This Visit: yes Reason for Continuing Indwelling Catheter: Acute Urinary Retention or Obstruction Urinary Catheter Date of Insertion: 10/14/21 Urinary Catheter Time of Insertion: 13:40 Hospital Course Admission Diagnoses Strangulated small bowel Hospital Course Patient undergone uneventful open ventral hernia repair with explantation of previous mesh placement. Concerning for infection and cultures were sent. Patient was observed overnight for pain control and monitoring her vital signs as well as urine output. Was there with marginal today and a bolus of 500 mL of saline was given and Sahu catheter would be taken out eventually, patient was started on broad-spectrum antibiotics and continued to have parenteral antimicrobial therapy after surgery. Pain is under control, tolerated p.o. intake and met the appropriate criteria for discharge home today Discharge Summary This is a pleasant 60 years old female patient morbidly obese with multiple medical comorbidities undergone uneventful open ventral hernia repair with previous mesh placed that was explanted due to concern for infection. Patient did well and we will plan to discharge home today with the follow-up with surgery office in 1 week. SSS Data Data Completed and Pending: Completed Studies During Hospitalization Category Date Time Status CT abdomen pelvis w con* [id number] Stat Cat Scan 10/14/21 10:11 Completed Pending at discharge Category Date Time Status Anaerobic Culture Routine Lab 10/14/21 14:35 Results Basic Metabolic P martín AM LABS Lab 10/16/21 04:00 Ordered Basic Metabolic P martín AM LABS Lab 10/17/21 04:00 Ordered Complete Blood Co unt w/Auto AM LABS Lab 10/16/21 04:00 Ordered Complete Blood Co unt w/Auto AM LABS Lab 10/17/21 04:00 Ordered Tissue Culture an d Gram Stain Routi ne Lab 10/14/21 14:35 Results Urine Culture Rou lashawn Lab 10/14/21 09:11 Received Wound Culture and Gram Stain Routin e Lab 10/14/21 14:30 Results Pathology: Surgic al [PTH] Routine Pth 10/14/21 15:19 Received Procedures Performed: Open ventral hernia repair with explantation of previous mesh placement Diagnoses at Discharge Discharge Diagnosis (1) Small bowel strangulation: Details from hospital stay: Suspected small bowel strangulation and in fact intraoperatively a seroma surrounding the mesh with outpouching of the bowel underneath it without actual herniation. Status: Suspected (2) DM type 2 (diabetes mellitus, type 2): Details from hospital stay: Medical management per PCP Status: Chronic Qualifiers: Diabetes mellitus complication status: without complication Diabetes mellitus long term acute care registered nurse insulin use: without senior living use Qualified Code(s): E11.9 - Type 2 diabetes mellitus without complications (3) CAD (coronary artery disease): Details from hospital stay: Medical management Status: Acute Qualifiers: Associated angina: angina presence unspecified Coronary Disease- Associated Artery/Lesion type: solomon artery [place] vs. transplanted heart: solomon heart Qualified Code(s): I25.10 - Atherosclerotic heart disease of solomon coronary artery without angina pectoris (4) HTN (hypertension): Details from hospital stay: Medical management Status: Chronic Qualifiers: Hypertension type: essential hypertension Qualified Code(s): I10 - Essential (primary) hypertension Discharge Plan Discharge Patient Disposition: Home Condition: Stable Prescriptions: New tramadol 50 mg tablet 50 mg PO Q6H PRN (Reason: pain) Qty: 28 0RF amoxicillin-pot clavulanate [Augmentin XR] 1,000-62.5 mg tablet extended release 12 hr 1 tab PO Q12H 10 Days Qty: 20 0RF Continued (DME) walker with seat and brakes See Rx Instructions .Route .MEDSUPPLY Qty: 1 0RF Rx Instructions: As directed (DME) diabetic shoes and inserts See Rx Instructions .Route .MEDSUPPLY Qty: 1 0RF Rx Instructions: As directed hydrocodone-acetaminophen 10-325 mg tablet 1 tab PO Q6H PRN (Reason: pain) 30 Days Qty: 120 0RF (DME) Assure ID Insulin Safety 1 mL 29 gauge x 1/2 syringe See Rx Instructions .ROUTE .MEDSUPPLY Qty: 100 5RF Rx Instructions: As directed (DME) pen needle, diabetic [Comfort EZ Pen [place]] 31 gauge x 1/4 needle See Rx Instructions .Route Qty: 100 3RF Rx Instructions: As directed (DME) insulin syringe-needle U-100 [BD Veo Insulin Syringe UF] 1/2 mL 31 gauge x 15/64 syringe See Rx Instructions .ROUTE .MEDSUPPLY Qty: 100 2RF Rx Instructions: As directed (DME) marijuana 0 .Route .MEDSUPPLY 0RF Label Comments: medical marijuana smokes at hs Eucerin Calming Itch-Relief 0.1 % lotion 1 ea topical DAILY 30 Days Qty: 200 3RF Daily Probiotic 2.5 billion cell capsule 1 cap PO DAILY 30 Days Qty: 30 3RF amlodipine 5 mg tablet 5 mg PO QAM Qty: 90 3RF Trulicity 1.5 mg/0.5 mL pen injector See Rx Instructions .ROUTE .COMPLEX Qty: 2 2RF Dose Instruction: inject 1.5mg SUBCUTANEOUSLY ONCE WEEKLY *uses ON * Rx Instructions: inject 1.5mg SUBCUTANEOUSLY ONCE WEEKLY *uses ON * Flovent Diskus 50 mcg/actuation blister with device 2 inh inhalation BID Qty: 60 5RF (DME) InPen (for Humalog) Insulin Pen See Rx Instructions .Route Qty: 150 0RF Rx Instructions: qid to inject insulin Repatha Pushtronex 420 mg/3.5 mL wearable injector See Rx Instructions .ROUTE .COMPLEX Qty: 3.5 11RF Dose Instruction: INJECT 3.5ML BY MOUTH EVERY 30 DAYS Rx Instructions: INJECT 3.5ML BY MOUTH EVERY 30 DAYS isosorbide mononitrate 30 mg tablet extended release 24 hr 30 mg PO BID Qty: 180 2RF lisinopril 10 mg tablet 10 mg PO DAILY Qty: 90 3RF metoprolol tartrate 50 mg tablet 50 mg PO .COMPLEX Qty: 270 3RF Rx Instructions: 50 mg PO Take 2 tabs in morning and 1 tab in evening; fluconazole [Diflucan] 150 mg tablet 150 mg PO DAILY Qty: 7 0RF nystatin 100,000 unit/gram cream 1 applic topical BID Qty: 30 2RF furosemide [Lasix] 80 mg tablet 80 mg PO QAM Qty: 30 0RF potassium chloride 10 mEq tablet extended release 10 meq PO DAILY Qty: 30 0RF (DME) FreeStyle [place] 2 Sensor Kit See Rx Instructions .ROUTE .MEDSUPPLY Qty: 1 3RF Rx Instructions: check blood sugar 6 times a day (DME) FreeStyle [place] 2 [place] Misc See Rx Instructions .ROUTE .MEDSUPPLY Qty: 1 0RF Rx Instructions: check blood sugar 6 times a day fluticasone propionate 50 mcg/actuation spray,suspension See Rx Instructions .ROUTE .COMPLEX Qty: 16 2RF Dose Instruction: instill TWO SPRAYS IN EACH NOSTRIL DAILY Rx Instructions: instill TWO SPRAYS IN EACH NOSTRIL DAILY lancets [TRUEplus Lancets] 30 gauge misc See Rx Instructions .ROUTE .COMPLEX Qty: 100 1RF Dose Instruction: TO check blood sugar FOUR TIMES DAILY Rx Instructions: TO check blood sugar FOUR TIMES DAILY nitroglycerin 400 mcg/spray spray,non-aerosol See Rx Instructions .ROUTE .COMPLEX Qty: 4.9 3RF Rx Instructions: DIRECTED EVERY 5 MINS PRN Tums 1 - 2 wafer PO Q4H PRN (Reason: Heartburn) 0RF atorvastatin 40 mg tablet 40 mg PO DAILY 0RF buspirone 7.5 mg Tablet 7.5 mg PO BID 0RF cyclobenzaprine 10 mg tablet 10 mg PO PRN PRN (Reason: Muscle Spasm) 0RF ropinirole 0.25 mg tablet 0.25 mg PO BEDTIME 0RF metformin 1,000 mg tablet 1,000 mg PO DAILY 0RF buspirone 15 mg tablet 15 mg PO DAILY 0RF bupropion HCl 200 mg tablet sustained-release 12 hr 200 mg PO Q12H 0RF Humalog KwikPen Insulin 100 unit/mL insulin pen 29 unit SUBCUT .TIDAC 0RF Rx Instructions: Administer 29 units subcut three times a day with meals. Lantus Solostar U-100 Insulin 100 unit/mL (3 mL) insulin pen 30 unit SUBCUT QAM 0RF Rx Instructions: MAY INCREASE 2 UNITS EVERY 3 DAYS IF BS 140 lubiprostone 8 mcg capsule 8 mcg PO PRN PRN (Reason: Constipation) 0RF aspirin 81 mg Tablet,Delayed Release (Dr/Ec) 81 mg PO DAILY 0RF Held Brilinta 90 mg tablet 90 mg PO BID Qty: 180 4RF Hold Instructions: Resume on 10/22/21. Discharge Orders: Discharge Order (Routine); Ordered 10/15/21 Ordered By: Mika Whitman Referrals: Mika Whitman MD [Physician] - 10/27/21 2:15 pm Michelle Billy MD [Primary Care Provider] - 10/25/21 10:20 am Discharge Diet: Advance as tolerated Discharge Activity: Limit activity as instructed Patient Instructions: Abdominal Hernia, Tramadol (By mouth) (Ultram, Ultram ER, [place], Theratramadol-60, Qdolo), Opioid Safety Activity Restrictions/Additional Instructions: Do not resume your Metformin until October 17. 1. Patient can shower after 48 hours from surgery 2. Abdominal Binder for comfort 3. Up and walking as tolerated 4. Do lift more than 5 pounds. 5. Do not operate heavy machinery or drive while using pain medications. 6.Contact the office or return to the ER for worsening nausea vomiting fevers or chills, or noticing any redness around incision sites or discharge. 7. Avoid constipation Attestations Medical Necessity Statement*: Observation for perioperative care Time Spent in Patient Care*: greater than 30 min Specific Discharge Activities: Specific discharge activities: educating patient and educating and/or supporting family/caregiver Status at Discharge: Cognitive status at discharge: cognitively intact , Behavioral status at discharge: cooperative , Functional status at discharge: independent ambulation Overall status at discharge: patient is progressing back to baseline Quality Metrics Clinical Quality Measures: [ No reported AMI, CVA or VTE this stay ] Coding Level of Care Code Acute [employer] for [facility]g Fwd Diagnoses Small bowel strangulation K56.2 DM type 2 (diabetes mellitus, type 2) E11.9 Diabetes mellitus complication status: without complication Diabetes mellitus senior living insulin use: without long term acute care registered nurse use CAD (coronary artery disease) I25.10 Associated angina: angina presence unspecified Coronary Disease-Associated Artery/Lesion type: solomon artery [place] vs. transplanted heart: solomon heart HTN (hypertension) I10 Hypertension type: essential hypertension
--- NOTE | 2021-10-15 13:42 | PC.NURSE ---
Orders received from Dr. Dukes to d/c norma and have pt resume on 10/22. Dr. Dukes was notified that pt received 1st dose this am.
== END 2021-10-15 15:30 | disposition home or self-care (01) ==
LOC: ER 12:11 → OPS 12:15 → MEDSURG 18:27
PROVIDERS: Admitting Provider Surgery; Emergency Provider Family Medicine; PCP Family Medicine; Visit Provider Surgery
PROC: 0WQF0ZZ Repair Abdominal Wall, Open Approach (ICD-10-PCS; principal; 2021-10-14 12:30)
DX: K56.2 Volvulus (principal); E11.9 Type 2 diabetes mellitus without complications; I25.10 Atherosclerotic heart disease of native coronary artery without angina pectoris; I10 Essential (primary) hypertension; Z79.891 Long term (current) use of opiate analgesic; Z79.4 Long term (current) use of insulin; Z79.84 Long term (current) use of oral hypoglycemic drugs; G47.33 Obstructive sleep apnea (adult) (pediatric); Z86.711 Personal history of pulmonary embolism; M81.0 Age-related osteoporosis without current pathological fracture; Z83.3 Family history of diabetes mellitus; Z82.49 Family history of ischemic heart disease and other diseases of the circulatory system; Z82.3 Family history of stroke
CPT/HCPCS: 22999; 49565; 36415; 36416; 51702; 74177; 80048; 80053; 81001; 82962; 83605; 83690; 84439; 84443; 85025; 87070; 87075; 87086; 87176; 87205; 88302; 93005; 94640; 96372; 99214; 99285; C9290; G0378; J0330; J1100; J1644; J1815; J2370; J2405; J2543; J2704; J3010; J3490; J7030; J7040; J7626; P9041; Q9967

== ENCOUNTER → 2021-10-18 09:51 | Outpatient (BNVA) | payer MEDICARE, MEDICAID, SELFPAY | PROVIDERS: PCP Family Medicine; Visit Provider Internal Medicine | DX: E11.59 Type 2 diabetes mellitus with other circulatory complications (principal); E11.42 Type 2 diabetes mellitus with diabetic polyneuropathy; K76.0 Fatty (change of) liver, not elsewhere classified; E78.5 Hyperlipidemia, unspecified; E66.9 Obesity, unspecified; E16.0 Drug-induced hypoglycemia without coma; T38.3X5A Adverse effect of insulin and oral hypoglycemic [antidiabetic] drugs, initial encounter; Z79.4 Long term (current) use of insulin; Z79.84 Long term (current) use of oral hypoglycemic drugs; Z68.43 Body mass index [BMI] 50.0-59.9, adult | CPT/HCPCS: 99214 ==

== ENCOUNTER → 2021-10-27 14:02 | Outpatient (BNVA) | payer MEDICARE, MEDICAID, SELFPAY | PROVIDERS: PCP Family Medicine; Visit Provider Surgery | DX: Z98.890 Other specified postprocedural states (principal) ==

== ENCOUNTER → 2021-11-03 09:35 | Outpatient (BNVA) | payer MEDICARE, MEDICAID, SELFPAY | PROVIDERS: PCP Family Medicine; Visit Provider Surgery | DX: Z09 Encounter for follow-up examination after completed treatment for conditions other than malignant neoplasm (principal) ==

== ENCOUNTER → 2021-11-08 12:58 | Outpatient (BNVA) | payer MEDICARE, MEDICAID, SELFPAY | PROVIDERS: PCP Family Medicine; Visit Provider Nurse Practitioner Family | DX: R60.9 Edema, unspecified (principal) | CPT/HCPCS: 99213 ==

== ENCOUNTER → 2021-11-15 12:18 | Outpatient (BNVA) | payer MEDICARE, MEDICAID, SELFPAY | PROVIDERS: PCP Family Medicine; Visit Provider Urology | DX: N30.20 Other chronic cystitis without hematuria (principal); N30.80 Other cystitis without hematuria | CPT/HCPCS: 81003; 87086; 99213 ==

== ENCOUNTER → 2021-11-17 13:18 | Outpatient (BNVA) | payer MEDICARE, MEDICAID, SELFPAY | PROVIDERS: PCP Family Medicine; Visit Provider Surgery | DX: Z98.890 Other specified postprocedural states (principal) ==

== ENCOUNTER → 2021-12-08 10:40 | Outpatient (BNVA) | payer MEDICARE, MEDICAID, SELFPAY | PROVIDERS: PCP Family Medicine; Visit Provider Surgery | DX: Z09 Encounter for follow-up examination after completed treatment for conditions other than malignant neoplasm (principal) | CPT/HCPCS: 99024 ==

== ENCOUNTER 2022-01-26 13:57 | Emergency (ER) | payer MEDICARE, MEDICAID, SELFPAY ==
--- NOTE | 2022-01-26 14:01 | CT_ITS ---
WS: [id number] CT ABDOMEN PELVIS TECHNIQUE: Noncontrast CT of the abdomen and pelvis with coronal and sagittal reformatted images. CLINICAL INFORMATION: Abdominal pain COMPARISON: CT October 14, 2021 DLP: 1316.[address] scans at [facility] use at least one of these dose optimization techniques: automated e xposure control; mA and/or kV adjustment per patient size (includes targeted exams where dose is matc hed to clinical indication); or iterative reconstruction. FINDINGS: Mild hepatomegaly with diffuse fatty infiltration liver. Splenic granulomas. Lung bases are well aera jean-paul. Calcified granulomas LEFT lower lobe. Adrenal glands are normal. Normal noncontrast pancreas. No hydronephrosis in either kidney. Normal caliber abdominal aorta. Splenic artery calcification. No abdominal aortic aneurysm. Repaired periumbilical hernia with fluid collection likely seroma measuring 4.4 x 3.9 x 4.5 cm AP by transverse by craniocaudal. No obstructed small bowel. Sigmoid diverticulosis. No evidence of acute d iverticulitis. No evidence of high-grade small or large bowel obstruction. Prior small bowel anastomo sis in the LEFT lower quadrant. CT/CT abdomen pelvis wo con [id number] IMPRESSION: 1. Prior periumbilical hernia repair with adjacent subcutaneous seroma measuri ng 4.4 x 3.9 x 4.5 cm AP by transverse by craniocaudal . This is increased comp ared to previous where it measured 2.1 x 3.3 x 4.7 cm AP by transverse by crani ocaudal. 2. Abutting small bowel adjacent to the hernia repair but no evidence of obstr uction. 3. No other significant changes compared to previous. 4. Prior small bowel anastomosis in the LEFT lower quadrant. 5. Hepatomegaly with diffuse fatty infiltration Notified James Sharma DO at 01/26/2022 3:43 PM.
[2022-01-26 14:10] VITALS: BP 147/96; PULSE 112; RESP 16; TEMP 36.6; O2SAT 94; BMI 47.2
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
[2022-01-26 14:16] VITALS: BP 147/96; PULSE 112; RESP 16; TEMP 36.6; O2SAT 94
[2022-01-26 14:54] LABS: Basophils # 0.1 10^3/uL (0.0-0.1); Basophils % 0.6 %; Eosinophils # 0.3 10^3/uL (0.0-0.8); Eosinophils % 3.6 %; Hematocrit 45.4 % (37.0-47.0); Hemoglobin 14.8 g/dL (11.5-15.3); Lymphocytes # 3.1 10^3/uL (0.8-4.8); Lymphocytes % 31.9 %; Mean Corpuscular HGB Conc 32.6 g/dL (30.0-36.0); Mean Corpuscular Volume 82.7 fl (81-99); Mean Platelet Volume 11.2 fL (7.4-10.4); Monocytes # 0.5 10^3/uL (0.2-0.9); Monocytes % 5.3 %; Neutrophils # 5.57 10^3/uL (1.8-7.7); Neutrophils % 58.4 %; Nucleated Red Blood Cells % 0 %; Platelet Count 312 10^3/cmm (130-400); Red Blood Count 5.49 10^6/uL (4.1-5.3); Red Cell Distribution Width 14.3 % (12.1-15.1); White Blood Count 9.6 10^3/uL (4.0-10.0)
[2022-01-26 15:01] LABS: Blood Urine 3+ (Negative); Glucose Urine UA 4+ (Normal); Ketones Urine Negative (Negative); Protein Urine 1+ (Negative); Urine Appearance Hazy (CLEAR); Urine Color Yellow (Yellow); pH Urine 5 (5-7)
[2022-01-26 15:02] LABS: Add Urine Culture? Yes; Add Urine Microscopic? YES; Bacteria Urine 2+ /hpf; Bilirubin Urine Neg (Negative); Leukocyte Esterase Urine 2+ (Negative); Nitrate Urine Negative (Negative); Squamous Epithelial Cell Urine 25-40 /hpf (0-5); Urobilinogen Urine Norm (Negative)
[2022-01-26 15:22] LABS: Alanine Aminotransferase 12 U/L (0-33); Albumin Level 3.3 g/dL (3.5-5.2); Alkaline Phosphatase 137 IU/L (35-105); Aspartate Amino Transferase 9 U/L (0-32); Blood Urea Nitrogen 20 mg/dL (6-20); Calcium 9.4 mg/dL (8.5-10.5); Carbon Dioxide 25 mmol/L (22-29); Chloride 101 mmol/L (98-107); Globulin 3.2 g/dL (1.3-4.6); Glomerular Filtration Rate 73.4 mL/min (90-130); Glucose 285 mg/dL (65-115); Lipase 27 U/L (13-60); Osmolality Calculated 295 mOsm/kg (285-295); Sodium 136 mmol/L (136-145); Total Bilirubin 0.2 mg/dL (0.15-1.2); Total Protein 6.5 g/dL (6.6-8.7)
[2022-01-26 15:36] VITALS: BP 142/110; PULSE 102; RESP 16; O2SAT 95
== END 2022-01-26 16:29 | disposition home or self-care (01) ==
PROVIDERS: Emergency Provider Family Medicine; PCP Family Medicine
DX: L76.34 Postprocedural seroma of skin and subcutaneous tissue following other procedure (principal); Z79.84 Long term (current) use of oral hypoglycemic drugs; Z79.82 Long term (current) use of aspirin; Z79.4 Long term (current) use of insulin; I25.10 Atherosclerotic heart disease of native coronary artery without angina pectoris; Z86.73 Personal history of transient ischemic attack (TIA), and cerebral infarction without residual deficits; E11.9 Type 2 diabetes mellitus without complications; E78.5 Hyperlipidemia, unspecified; I10 Essential (primary) hypertension
CPT/HCPCS: 74176; 80053; 81001; 83690; 85025; 87086; 99284

== ENCOUNTER → 2022-02-28 17:03 | Outpatient (BNVA) | payer MEDICARE, MEDICAID, SELFPAY | PROVIDERS: PCP Family Medicine; Visit Provider Family Medicine | DX: K46.9 Unspecified abdominal hernia without obstruction or gangrene (principal); R33.9 Retention of urine, unspecified | CPT/HCPCS: 81003; 87086 ==

== ENCOUNTER → 2022-03-15 13:39 | Outpatient (BNVA) | payer MEDICARE, MEDICAID, SELFPAY | PROVIDERS: PCP Family Medicine; Visit Provider Internal Medicine Cardiovascular Disease | DX: I25.10 Atherosclerotic heart disease of native coronary artery without angina pectoris (principal); I10 Essential (primary) hypertension; E78.5 Hyperlipidemia, unspecified; E66.01 Morbid (severe) obesity due to excess calories; Z68.42 Body mass index [BMI] 45.0-49.9, adult; E11.9 Type 2 diabetes mellitus without complications; Z79.4 Long term (current) use of insulin | CPT/HCPCS: 99214 ==

== ENCOUNTER → 2022-04-18 16:55 | Outpatient (BNVA) | payer MEDICARE, MEDICAID, SELFPAY | PROVIDERS: PCP Family Medicine; Visit Provider Family Medicine | DX: J02.9 Acute pharyngitis, unspecified (principal); H66.93 Otitis media, unspecified, bilateral; R31.9 Hematuria, unspecified; N30.21 Other chronic cystitis with hematuria | CPT/HCPCS: 81003; 87071; 87880 ==

== ENCOUNTER → 2022-06-14 15:02 | Outpatient (BNVA) | payer MEDICARE, MEDICAID, SELFPAY | PROVIDERS: PCP Family Medicine; Visit Provider Urology | DX: N30.21 Other chronic cystitis with hematuria (principal) | CPT/HCPCS: 51798; 81003; 99213 ==

== ENCOUNTER → 2022-08-31 16:39 | Outpatient (BNVA) | payer MEDICARE, MEDICAID, SELFPAY | PROVIDERS: PCP Family Medicine; Visit Provider Family Medicine | DX: R05.9 Cough, unspecified (principal); R50.9 Fever, unspecified; J20.9 Acute bronchitis, unspecified; H66.93 Otitis media, unspecified, bilateral; T78.40XA Allergy, unspecified, initial encounter | CPT/HCPCS: 87400; 87426 ==

== ENCOUNTER → 2022-10-10 09:22 | Outpatient (BNVA) | payer MEDICARE, MEDICAID, SELFPAY | PROVIDERS: PCP Family Medicine; Visit Provider Family Medicine | DX: E11.59 Type 2 diabetes mellitus with other circulatory complications (principal); R07.9 Chest pain, unspecified | CPT/HCPCS: 82962 ==

== ENCOUNTER 2022-10-24 13:33 | Outpatient (CLI) | payer MEDICARE, MEDICAID, SELFPAY ==
--- NOTE | 2022-10-24 14:13 | MM_ITS ---
WS: [id number] BILATERAL 3D TOMOSYNTHESIS DIGITAL DIAGNOSTIC MAMMOGRAPHY WITH CAD CLINICAL INFORMATION: RT BREAST PAIN/TENDERNESS HISTORY: RIGHT breast pain and soreness. Palpable lump RIGHT breast. COMPARISON: July 24, 2020 TECHNIQUE: Bilateral CC, MLO, and ML views. FINDINGS: Scattered fibroglandular densities bilaterally. Vascular calcification. Punctate and lucent centered calcifications. No parenchymal abnormalities in the area of palpable concern RIGHT breast. LEFT breas t appears unchanged. Ultrasound described below. ULTRASOUND BREAST RIGHT TECHNIQUE: Ultrasound right breast focused area of concern. CLINICAL INFORMATION: RT BREAST PAIN/TENDERNESS FINDINGS: Ultrasound RIGHT breast in the areas of concern at the 10:00 position 4 and 5 cm from the nipple and 10:00 position 6 cm from the nipple. Normal underlying parenchymal tissue. No suspicious cystic or so lid lesions. No lesions to target for biopsy. MM/[place] [id number] IMPRESSION: BI-RADS: 2-Benign FOLLOW UP: 1 Year Follow-up Recommend return to annual screening mammography.
== END 2022-10-24 13:34 | disposition home or self-care (01) ==
LOC: RAD 13:35
PROVIDERS: PCP Family Medicine; Visit Provider Nurse Practitioner Family
DX: N64.4 Mastodynia (principal); N63.10 Unspecified lump in the right breast, unspecified quadrant
CPT/HCPCS: 76642; 77062; G0279

== ENCOUNTER → 2022-11-16 09:04 | Outpatient (BNVA) | payer MEDICARE, MEDICAID, SELFPAY | PROVIDERS: PCP Family Medicine; Visit Provider Family Medicine | DX: E11.59 Type 2 diabetes mellitus with other circulatory complications (principal); E78.5 Hyperlipidemia, unspecified; I25.10 Atherosclerotic heart disease of native coronary artery without angina pectoris; I50.9 Heart failure, unspecified; E11.65 Type 2 diabetes mellitus with hyperglycemia; Z79.4 Long term (current) use of insulin; E55.9 Vitamin D deficiency, unspecified | CPT/HCPCS: 80053; 80061; 82306; 83036; 83880; 84443; 85025 ==

== ENCOUNTER → 2022-12-26 14:12 | Outpatient (BNVA) | payer MEDICARE, MEDICAID, SELFPAY | PROVIDERS: PCP Family Medicine; Visit Provider Family Medicine | DX: M79.672 Pain in left foot (principal) | CPT/HCPCS: 73630 ==

== ENCOUNTER → 2022-12-27 10:38 | Outpatient (BNVA) | payer MEDICARE, MEDICAID, SELFPAY | PROVIDERS: PCP Family Medicine; Visit Provider Podiatrist Foot & Ankle Surgery | DX: S90.32XA Contusion of left foot, initial encounter (principal); W17.89XA Other fall from one level to another, initial encounter; M79.604 Pain in right leg | CPT/HCPCS: 73590; 97760; 99203; L4361 ==

== ENCOUNTER 2022-12-27 11:15 | Outpatient (CLI) | payer MEDICARE, MEDICAID, SELFPAY | END 2022-12-27 11:16 | disposition home or self-care (01) | LOC: SPT 11:16 | PROVIDERS: PCP Family Medicine; Visit Provider Podiatrist Foot & Ankle Surgery | DX: Z46.89 Encounter for fitting and adjustment of other specified devices (principal); M25.572 Pain in left ankle and joints of left foot; S90.32XA Contusion of left foot, initial encounter; W17.89XA Other fall from one level to another, initial encounter; M79.604 Pain in right leg | CPT/HCPCS: 97760; 99203; L4361 ==

== ENCOUNTER → 2023-01-17 13:49 | Outpatient (BNVA) | payer MEDICARE, MEDICAID, SELFPAY | PROVIDERS: PCP Family Medicine; Visit Provider Podiatrist Foot & Ankle Surgery | DX: S92.912D Unspecified fracture of left toe(s), subsequent encounter for fracture with routine healing (principal); W19.XXXD Unspecified fall, subsequent encounter | CPT/HCPCS: 73630; 99213 ==

== ENCOUNTER 2023-01-18 10:30 | Emergency (ER) | payer MEDICARE, MEDICAID, SELFPAY ==
[2023-01-18 10:31] VITALS: BP 147/76; PULSE 82; RESP 18; TEMP 36.4; O2SAT 96; BMI 39.8
--- NOTE | 2023-01-18 10:45 | XR_ITS ---
WS: [id number] XR knee RT 3V* [id number] REASON FOR EXAM: Trauma FINDINGS: No acute fracture identified. Tibial plateaus intact. Mild to moderate narrowing of the medial knee joint space with subchondral sclerosis and osteophytosi s. Lateral knee joint space intact minimal narrowing. Mild subchondral sclerosis and osteophytosis. Moderate narrowing of the patellofemoral joint space with significant osteophytosis of the patella an d opposing femoral condyles. Incidental note of extensive arterial vascular calcifications. XR/XR knee RT 3V* [id number] IMPRESSION: No acute abnormality. Moderate osteoarthritis of the right knee.
--- NOTE | 2023-01-18 10:45 | XR_ITS ---
WS: [id number] XR ankle RT min 3V* [id number] REASON FOR EXAM: Trauma FINDINGS: Soft tissue swelling around the right ankle joint. Possible small avulsion fracture from the apex of the lateral malleolus. The ankle joint spaces are intact and relatively well-preserved. XR/XR ankle RT min 3V* [id number] IMPRESSION: Soft tissue swelling with possible small avulsion fracture as above.
--- NOTE | 2023-01-18 10:45 | XR_ITS ---
WS: [id number] XR knee LT 3V* [id number] REASON FOR EXAM: Trauma FINDINGS: No acute fracture. Mild narrowing of the medial joint space with mild subchondral sclerosis and osteophytosis. Tibial pl [place] intact. Lateral knee joint spaces intact and well preserved. Mild subchondral sclerosis. Lateral tibial plate au intact. Mild to moderate narrowing of the patellofemoral joint space with mild to moderate osteophytosis of t he patella. XR/XR knee LT 3V* [id number] IMPRESSION: No acute abnormality. Mild osteoarthritis the left knee.
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
[2023-01-18 11:29] LABS: Basophils # 0.1 10^3/uL (0.0-0.1); Basophils % 0.5 %; Eosinophils # 0.2 10^3/uL (0.0-0.8); Eosinophils % 1.8 %; Hematocrit 38.7 % (37.0-47.0); Hemoglobin 12.3 g/dL (11.5-15.3); Lymphocytes # 2.9 10^3/uL (0.8-4.8); Lymphocytes % 27.2 %; Mean Corpuscular HGB Conc 31.8 g/dL (30.0-36.0); Mean Corpuscular Hemoglobin 26.4 pg (28.0-34.0); Mean Platelet Volume 9.9 fL (7.4-10.4); Monocytes # 0.7 10^3/uL (0.2-0.9); Monocytes % 6.7 %; Neutrophils # 6.86 10^3/uL (1.8-7.7); Neutrophils % 63.4 %; Nucleated Red Blood Cells % 0 %; Platelet Count 274 10^3/cmm (130-400); Red Blood Count 4.66 10^6/uL (4.1-5.3); Red Cell Distribution Width 14.4 % (12.1-15.1); White Blood Count 10.8 10^3/uL (4.0-10.0)
[2023-01-18 11:49] VITALS: BP 124/44; PULSE 76; RESP 16; O2SAT 99
[2023-01-18 11:50] LABS: Alanine Aminotransferase 13 U/L (0-33); Albumin Level 3.4 g/dL (3.5-5.2); Alkaline Phosphatase 90 U/L (35-105); Anion Gap 17.6 (5-19); Aspartate Amino Transferase 13 U/L (0-32); Blood Urea Nitrogen 25 mg/dL (8-23); Carbon Dioxide 24 mmol/L (22-29); Chloride 101 mmol/L (98-107); Globulin 3.1 g/dL (1.3-4.6); Glomerular Filtration Rate 38.4 mL/min (90-130); Glucose 96 mg/dL (65-115); Osmolality Calculated 292 mOsm/kg (285-295); Potassium 3.6 mmol/L (3.5-5.1); Sodium 139 mmol/L (136-145); Total Bilirubin 0.4 mg/dL (0.15-1.2); Total Protein 6.5 g/dL (6.6-8.7)
--- NOTE | 2023-01-18 11:56 | PC.PHAR ---
pt brought in med bottles-pt states she also has a nurse jacek gilliam [phone] that sets her meds up-pt states she also knows what meds she takes-pt states she only takes bupropion sr 12h 200mg hs (rx filled 200mg q12h 10/28/22 30d/s)and buspar 15mg hs (rx filled 11/22/22 90d/s 15mg bid)-pt states she is out of her vitamin d3 79729 units q7d ext shows last filled 12/09/22 70d/s-pt states she uses humalog kwikpen 25 units tid rx filled 12/20/22 29 units tid before meals-pt states she takes hydralazine 50mg bid rx bottle has 50mg tid filled 01/16/23 30d/s-pt states she uses lantus solostar 32 units qam rx filled 12/14/22 30d/s 35 units qam may increase by 2 units every 3 days if bs 140-pt states she is unsure if she still takes trulicity 1.5mg q7d rx filled 12/07/22 28d/s-notes are made in the pharmacy comments
--- NOTE | 2023-01-18 12:13 | XR_ITS ---
WS: [id number] XR pelvis 1-2V* [id number] REASON FOR EXAM: difficulty walking FINDINGS: No abnormality of the bony pelvis. Osteoarthritis of both hips previously described. XR/XR pelvis 1-2V* [id number] IMPRESSION: No acute abnormality.
[2023-01-18 12:19] LABS: Add Urine Microscopic? YES; Bilirubin Urine Neg (Negative); Blood Urine Neg (Negative); Glucose Urine UA Trace (Normal); Ketones Urine Negative (Negative); Leukocyte Esterase Urine 1+ (Negative); Nitrate Urine Negative (Negative); Protein Urine Trace (Negative); Specific Gravity, Urine 1.015 (1.005-1.030); Urine Appearance Hazy (CLEAR); Urine Color Yellow (Yellow); Urobilinogen Urine Norm (Negative); pH Urine 5 (5-7)
[2023-01-18 12:20] LABS: WBC Urine 15-25 /hpf (0-5)
[2023-01-18 12:21] LABS: Add Urine Culture? Yes; Bacteria Urine TRACE /hpf
[2023-01-18] MEDS: sodium chloride 0.9% 1,000 ML 999 ML IV (12:21)
[2023-01-18 12:31] VITALS: BP 140/51; PULSE 73; RESP 16; O2SAT 96
[2023-01-18] MEDS: acetaminophen 500 mg Tablet 1000 MG PO (12:41)
[2023-01-18 15:12] VITALS: BP 140/51; PULSE 73; RESP 16; TEMP 36.4; O2SAT 96
--- NOTE | 2023-01-19 10:30 | DCPLANNER ---
Addendum entered by Bozena Olivia 02/02/23 10:16: Patient attended appointment at ortho. Addendum entered by Bozena Olivia 01/31/23 13:40: Patient has a follow up appointment scheduled for Wednesday, February 01, 2023 at 11:[address] Lopez at ortho. Addendum entered by Bozena Olivia 01/23/23 16:03: manager federal received the following message from the ortho clinic regarding follow up appointment: left vm for pt to call back and schedule with Dr. Lopez Original Note: manager federal had message to schedule a follow up appointment for patient with ortho. manager federal sent patients information to the front office staff at ortho. Patients information will be printed and reviewed. Clinic will call patient with appointment information.
== END 2023-01-18 15:13 | disposition home or self-care (01) ==
PROVIDERS: Emergency Provider Family Medicine; PCP Family Medicine
DX: S82.62XA Displaced fracture of lateral malleolus of left fibula, initial encounter for closed fracture (principal); M25.561 Pain in right knee; M25.562 Pain in left knee; N30.90 Cystitis, unspecified without hematuria; I25.10 Atherosclerotic heart disease of native coronary artery without angina pectoris; E11.9 Type 2 diabetes mellitus without complications; I10 Essential (primary) hypertension; E78.5 Hyperlipidemia, unspecified; G47.33 Obstructive sleep apnea (adult) (pediatric); E66.01 Morbid (severe) obesity due to excess calories; Z68.39 Body mass index [BMI] 39.0-39.9, adult; F17.200 Nicotine dependence, unspecified, uncomplicated; Z79.01 Long term (current) use of anticoagulants; Z79.82 Long term (current) use of aspirin; Z79.4 Long term (current) use of insulin; Z79.84 Long term (current) use of oral hypoglycemic drugs; Z79.85 Long-term (current) use of injectable non-insulin antidiabetic drugs; Z79.899 Other long term (current) drug therapy; Z86.711 Personal history of pulmonary embolism; Z95.5 Presence of coronary angioplasty implant and graft; W18.30XA Fall on same level, unspecified, initial encounter; Y93.9 Activity, unspecified; Y92.009 Unspecified place in unspecified non-institutional (private) residence as the place of occurrence of the external cause
CPT/HCPCS: 36415; 72170; 73562; 73610; 80053; 81001; 85025; 87077; 87086; 87186; 97116; 97161; 99284; J7030

== ENCOUNTER → 2023-01-20 14:04 | Outpatient (BNVA) | payer MEDICARE, MEDICAID, SELFPAY | PROVIDERS: PCP Family Medicine; Visit Provider Podiatrist Foot & Ankle Surgery | DX: S93.401A Sprain of unspecified ligament of right ankle, initial encounter; S92.502A Displaced unspecified fracture of left lesser toe(s), initial encounter for closed fracture; W19.XXXA Unspecified fall, initial encounter; R29.6 Repeated falls; Z91.81 History of falling | CPT/HCPCS: 99214 ==

== ENCOUNTER 2023-02-07 06:00 | Outpatient (RCR) | payer MEDICARE, MEDICAID, SELFPAY | END 2023-03-09 23:59 | disposition home or self-care (01) | LOC: TPT 06:00 | PROVIDERS: PCP Family Medicine; Visit Provider Family Medicine | DX: R29.6 Repeated falls (principal); S92.912D Unspecified fracture of left toe(s), subsequent encounter for fracture with routine healing; X58.XXXD Exposure to other specified factors, subsequent encounter | CPT/HCPCS: 97163 ==

== ENCOUNTER → 2023-02-08 11:37 | Outpatient (BNVA) | payer MEDICARE, MEDICAID, SELFPAY | PROVIDERS: Visit Provider Podiatrist Foot & Ankle Surgery | DX: S92.502D Displaced unspecified fracture of left lesser toe(s), subsequent encounter for fracture with routine healing; S99.922D Unspecified injury of left foot, subsequent encounter; S93.401D Sprain of unspecified ligament of right ankle, subsequent encounter; S99.911D Unspecified injury of right ankle, subsequent encounter; R29.6 Repeated falls; Z91.81 History of falling; W19.XXXD Unspecified fall, subsequent encounter | CPT/HCPCS: 73610; 73630; 99214 ==

== ENCOUNTER 2023-02-19 15:52 | Observation (INO) | payer MEDICARE, MEDICAID, SELFPAY ==
--- NOTE | 2023-02-19 15:55 | XRR_ITS ---
PROCEDURE INFORMATION: Exam: XR Chest Exam date and time: 02/19/2023 4:17 PM Age: 62 years old Clinical indication: Shortness of breath; Additional info: SOB TECHNIQUE: Imaging protocol: Radiologic exam of the chest. Views: 1 view. COMPARISON: CR XR chest 1V portable [id number] 12/13/2019 12:13 PM FINDINGS: Lungs: Unremarkable. No consolidation. Pleural spaces: Unremarkable. No pleural effusion. No pneumothorax. Heart/Mediastinum: Borderline cardiomegaly. Bones/joints: Mild thoracic curvature. No acute fracture. XR/XR chest 1V portable [id number] IMPRESSION: No acute findings.
[2023-02-19 16:00] VITALS: BP 118/72; PULSE 72; RESP 18; TEMP 36.4; O2SAT 96
--- NOTE | 2023-02-19 16:03 | XRR_ITS ---
PROCEDURE INFORMATION: Exam: XR Left Hip Exam date and time: 02/19/2023 4:17 PM Age: 62 years old Clinical indication: Hip pain; Left hip; Additional info: Fall, left hip pain, with pelvis TECHNIQUE: Imaging protocol: Radiologic exam of the left hip. Views: 2 or 3 views hip with pelvis when performed. COMPARISON: CR XR pelvis 1-2V* [id number] 01/18/2023 12:18 PM FINDINGS: Bones/joints: Unremarkable. No acute fracture. Soft tissues: Unremarkable. Vasculature: Arterial calcifications. XR/XR hip LT 2-3V wo/w pel* [id number] IMPRESSION: No acute findings.
--- NOTE | 2023-02-19 16:03 | CTR_ITS ---
PROCEDURE INFORMATION: Exam: CT Cervical Spine Without Contrast Exam date and time: 02/19/2023 4:54 PM Age: 62 years old Clinical indication: Injury or trauma; Fall; Blunt trauma; Additional info: Fall, neck pain TECHNIQUE: Imaging protocol: Computed tomography of the cervical spine without contrast. Radiation optimization: All CT scans at this facility use at least one of these dose optimization techniques: automated exposure control; mA and/or kV adjustment per patient size (includes targeted exams where dose is matched to clinical indication); or iterative reconstruction. REPORTING DATA: Count of CT and Cardiac NM exams in prior 12 months: This patient has received 0 known CTs and 0 known cardiac nuclear medicine studies in the 12 months prior to the current study. COMPARISON: MR shoulder RT wo con* [id number] 01/27/2021 5:42 PM RADIATION DOSE METRICS: Total DLP (mGy-cm): 302.6 FINDINGS: Bones/joints: The vertebral body alignment and stature is intact. No fracture or subluxation. Disc space narrowing with degenerative endplate changes at C5-C6 through C7-T1. Posterior disc bulge at C7-T1 with mild central canal stenosis. Bilateral bony foraminal stenosis at C6-C7. The facets are intact with mild degenerative changes. Lungs: Mild mosaic attenuation in the upper lobes, consistent with mild air trapping. Thyroid: Atrophic or absent left thyroid lobe. Soft tissues: Unremarkable. CT/CT cervical spin wo con* [id number] IMPRESSION: 1. No acute findings. 2. Multilevel degenerative changes.
--- NOTE | 2023-02-19 16:03 | CTR_ITS ---
PROCEDURE INFORMATION: Exam: CT Head Without Contrast Exam date and time: 02/19/2023 4:54 PM Age: 62 years old Clinical indication: Injury or trauma; Fall; Blunt trauma (contusions or hematomas); Without loss of consciousness; Additional info: Fall, HERNANDEZ n/v, on antiplatelet therapy TECHNIQUE: Imaging protocol: Computed tomography of the head without contrast. Radiation optimization: All CT scans at this facility use at least one of these dose optimization techniques: automated exposure control; mA and/or kV adjustment per patient size (includes targeted exams where dose is matched to clinical indication); or iterative reconstruction. REPORTING DATA: Count of CT and Cardiac NM exams in prior 12 months: This patient has received 0 known CTs and 0 known cardiac nuclear medicine studies in the 12 months prior to the current study. COMPARISON: No relevant prior studies available. RADIATION DOSE METRICS: Total DLP (mGy-cm): 1096.6 FINDINGS: Brain: The sulci are normal. Mild hypodensities in supratentorial periventricular and subcortical white matter, consistent with microangiopathy. No intracranial hemorrhage. Cerebral ventricles: No ventriculomegaly. Paranasal sinuses: Visualized sinuses are unremarkable. No fluid levels. Mastoid air cells: Visualized mastoid air cells are well aerated. Bones/joints: Unremarkable. No acute fracture. Soft tissues: Unremarkable. Vasculature: No hyperdense artery. CT/CT head wo con* [id number] IMPRESSION: No acute intracranial abnormality.
--- NOTE | 2023-02-19 16:06 | ECG_ITS ---
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 Measurements Intervals [place] Rate: 70 P: 67 IN: 157 QRS: 33 QRSD: 87 T: 109 QT: 369 QTc: 400 Interpretive Statements SINUS RHYTHM ABNORMAL QRS-T ANGLE [QRS-T AXIS DIFFERENCE > 60] Compared to ECG 10/14/2021 10:49:34 T-wave abnormality no longer present Electronically Signed On 02-19-2023 18:25:13 CDT by Jose Zapata M.D. [email or web address]
--- NOTE | 2023-02-19 16:31 | ED_ITS ---
HPI - Fall General: Chief Complaint: Fall Stated Complaint: SOB; DIZZY; FALL Time Seen by Provider: 02/19/23 15:53 History of Present Illness: Watson Bridges is a 62-year-old female that presents to the emergency department with complaints of fatigue, dizziness, fall. Patient states that she has had diarrhea nausea and vomiting for a week. She was recently started on antibiotics and her diarrhea has worsened. Today she attempted to get up from the commode at 0200 and ambulate down the hallway when she became dizzy and fell. She laid there until 1100 this mornoing when family found her. She was assisted back to bed where she rested until family encouraged her to call ems She fell landing on her left hip. She reports chronic bilateral knee pain, new left hip pain. She hit her head and she is complaining of neck pain. Pain is midline cervical Patient history includes heart disease, hypertension, diabetes\. Patient had a heart attack in September and was recently started on Brilinta Associated symptoms-after fall: Reports difficulty walking and headache(s); Denies abdominal pain, chest pain, confusion, hematuria or neck pain Review of Systems General: Reports: 10 or more systems reviewed and unremarkable except in HPI and below Const: Denies: fever(s), chills, change in appetite, change in weight, fatigue or malaise Eyes: Denies: change in vision, eye discomfort, eye discharge or eye redness ENMT: Denies: throat pain, enlarged tonsils, odynophagia, hoarseness, ear or mastoid pain, ear discharge, change in hearing, tinnitus, nasal discharge, nasal congestion, post nasal drip or sinus pain Card: Denies: chest pain, palpitations, irregular heart rhythm, edema, dyspnea on exertion, orthopnea or leg pain with exertion Resp: Denies: dyspnea, productive cough, non-productive cough, wheezing, strid or or chest congestion GI: Reports: nausea and diarrhea; Denies: abdominal pain, vomiting, dysphagia, constipation, bloating, GI cramping or hematochezia : Denies: flank pain, difficulty voiding, dysuria, urinary frequency, urinary urgency, urinary hesitancy, oliguria or hematuria Musc: Denies: neck pain, back pain, extremity pain, joint pain, joint swelling, joint redness, joint warmth or muscle weakness Skin/Breast: Denies: rash, pruritus, erythema, photosensitivity or new lesions Neuro: Reports: headache(s), difficulty walking, frequent falls and dizziness; Denies: numbness in extremities, weakness in extremities, sensory changes, lack of coordination, confusion, Slurred speech present, difficulty communicating thoughts, seizure-like activity or involuntary movements Endo: Denies: polyuria, polydipsia or tired all the time Soham/Lymph: Denies: easy bruising or easy bleeding PFSH ED PFSH: Medical History Bilateral lower extremity edema CAD (coronary artery disease) Chronic cystitis Chronic low back pain Constipation CVA (cerebral vascular accident) DM type 2 (diabetes mellitus, type 2) Dyslipidemia GERD (gastroesophageal reflux disease) Gross hematuria HTN (hypertension) Long-term use of high-risk medication Migraine headache Morbid obesity Opioid contract exists BETH (obstructive sleep apnea) Osteoporosis Pulmonary embolism, bilateral RLS (restless legs syndrome) Small bowel strangulation Surgical History H/O heart artery stent History of partial surgical removal of colon Hx of total knee replacement S/P appendectomy S/P cholecystectomy S/P hysterectomy S/P tonsillectomy and adenoidectomy Family History Grandfather Cancer Family/Other Myocardial infarct MOTHER, FATHER, BROTHER, SISTER Hypertension Diabetes Mother , at age 66 CAD (coronary artery disease) Father , at age 74 CAD (coronary artery disease) Sister CAD (coronary artery disease) Brother CAD (coronary artery disease) Other Stroke Denies family history of Anesthesia complication Bleeding disorder Social History Smoking and tobacco status: current some day smoker Alcohol intake: never Substance/Drug Use: current Substance/Drug use frequency: other Other substance/drug use details: smokes medical marijauna occasionally at night to help her sleep Lives independently: Yes Marital status: Current occupational status: disabled Current gender identity: Female Special vik needs: No Physical Exam Const: COMMON NORMALS: no acute distress, patient oriented x3 and alert GENERAL APPEARANCE: cooperative ORIENTATION/CONSCIOUSNESS: Yes awake, Yes oriented to person, Yes oriented to place and Yes oriented to time HENMT: COMMON NORMALS: normocephalic and atraumatic HEAD & SCALP: normocephalic and atraumatic FACE & SINUS: normal facial exam MOUTH: Normal oral and palatal mucosa present THROAT: posterior oropharynx normal Eye: COMMON NORMALS: Equal, round and reactive pupils present, EOMs intact bilaterally, conjunctivae normal and no scleral icterus GENERAL EYE: appearance normal, both eyes and all related structures ALIGNMENT: Yes alignment normal PERIORBITAL: periorbital findings normal CONJUNCTIVA: Yes conjunctivae normal PUPIL: Yes Equal, round and reactive pupils present Neck/C-Spine: COMMON NORMALS: full ROM GENERAL: Yes normal visual inspection Lymph: LYMPHATIC: no lymphadenopathy noted Chest: COMMONS NORMALS: normal inspection of the chest Breast/axilla inspection: Yes no chest deformity, asymmetry, normal contours, no nodules, masses, tenderness Resp: COMMON NORMALS: normal respiratory effort, No retractions, No use of accessory muscles and clear to auscultation bilaterally EFFORT & INSPECTION: Yes able to speak in complete sentences and Yes symmetric chest movement AUSCULTATION: clear to auscultation bilaterally Cardio: COMMON NORMALS: regular rate, regular rhythm and Peripheral pulses 2+ throughout RATE: regular rate RHYTHM: regular rhythm PERIPHERAL PULSES: Peripheral pulses 2+ throughout GI: COMMON NORMALS: Normal to inspection, nondistended, normoactive bowel sounds present, Soft to palpation and non-tender INSPECTION: Yes normal to inspection AUSCULTATION: Yes normoactive bowel sounds PALPATION: Yes Soft to palpation RECTAL EXAM: deferred Extremity: COMMON NORMALS: normal to inspection GENERAL: Yes normal exam except as noted OTHER: Cervical tenderness Patient is complaining of bilateral knee pain. This is unchanged from her baseline. Patient has new onset left hip pain. She is tender to palpation over the groin And motion of bilateral lower extremities is limited due to pain She does have dorsiflexion plantarflexion of lateral feet Neuro: COMMON NORMALS: patient oriented x3 SENSORIUM/ORIENTATION: Yes alert, Yes oriented to person, Yes oriented to place and Yes oriented to time CRANIAL NERVES: Yes CN normal except as noted Psych: COMMON NORMALS: mental status grossly normal, Normal thought process present, cooperative, activity/motor behavior normal, denies homicidal ideation and denies suicidal ideation THOUGHT PROCESS: Normal thought process present Skin: COMMON NORMALS: no rashes or lesions noted, no wounds and turgor normal GENERAL SKIN EXAM: no rashes or lesions noted and turgor normal Course Vital Signs: Vital signs: Vital Signs Temperature 97.5 F L 02/19/23 16:00 Pulse Rate 68 02/19/23 17:52 Respiratory Rate 18 02/19/23 16:00 Blood Pressure 134/70 02/19/23 17:52 Pulse Oximetry 95 02/19/23 17:52 Oxygen Delivery Me thod Room Air 02/19/23 17:52 MDM - Fall Medical Decision Making Patient was evaluated in the emergency department today due to a fall. Reportedly she fell at 0200 when she was trying to get up from a commode. She says that she got dizzy and fell. She landed on her left hip and hit her head. She reported that she was unable to get up off the floor on her own accord. Family came by at 11:00 this morning and found her. They assisted her back to bed. Here in the emergency department I was evaluating her for head injury, cervical spine injury, left hip fracture. She does have an underlying GI infection. Patient had stooled on herself at [facility] and was unable to clean it up. Here in the emergency department I also added a CBC, CMP, troponin, stool culture and guaiac. Her CBC came back revealing a mild leukocytosis but no significant anemia and her platelets are 324. Her troponin came back as 120. CK and CK-MB have been ordered I did speak with Dr. Aguiar who will be coming by to see the patient for admission. I did attempt to clear her cervical spine after imaging was obtained. There is no acute fracture on CT but the patient does complain of midline tenderness with movement?flexion forward or palpation. Patient is going to be fitted for a Dickson J collar until she can be cleared clinically. Orders placed for admission, patient will be evaluated by oncoming physician Lab Data 02/19/23 16:45 02/19/23 16:45 Radiology Impressions Chest X-Ray 02/19/23 15:55 IMPRESSION: No acute findings. Cervical Spine CT 02/19/23 16:03 IMPRESSION: 1. No acute findings. 2. Multilevel degenerative changes. Head CT 02/19/23 16:03 IMPRESSION: No acute intracranial abnormality. Hip/Pelvis X-Ray 02/19/23 16:03 IMPRESSION: No acute findings. Laboratory Results WBC 12.3 10^3/uL (4.0-10.0) H 02/19/23 16:45 RBC 4.52 10^6/uL (4.1-5.3) 02/19/23 16:45 Hgb 12.2 g/dL (11.5-15.3) 02/19/23 16:45 Hct 37.4 % (37.0-47.0) 02/19/23 16:45 MCV 82.7 fl (81-99) 02/19/23 16:45 MCH 27.0 pg (28.0-34.0) L 02/19/23 16:45 MCHC 32.6 g/dL (30.0-36.0) 02/19/23 16:45 RDW 15.8 % (12.1-15.1) H 02/19/23 16:45 Plt Count 324 10^3/cmm (130-400) 02/19/23 16:45 MPV 10.3 fL (7.4-10.4) 02/19/23 16:45 Neut % (Auto) 63.9 % 02/19/23 16:45 Lymph % (Auto) 26.3 % 02/19/23 16:45 [place] % (Auto) 7.1 % 02/19/23 16:45 Eos % (Auto) 1.9 % 02/19/23 16:45 Baso % (Auto) 0.4 % 02/19/23 16:45 Neut # (Auto) 7.84 10^3/uL (1.8-7.7) H 02/19/23 16:45 Lymph # (Auto) 3.2 10^3/uL (0.8-4.8) 02/19/23 16:45 [place] # (Auto) 0.9 10^3/uL (0.2-0.9) 02/19/23 16:45 Eos # (Auto) 0.2 10^3/uL (0.0-0.8) 02/19/23 16:45 Baso # (Auto) 0.1 10^3/uL (0.0-0.1) 02/19/23 16:45 Nucleated RBC % (auto) 0 % 02/19/23 16:45 Nucleated RBCs # 0.0 /100WBC 02/19/23 16:45 Sodium 138 mmol/L (136-145) 02/19/23 16:45 Potassium 4.4 mmol/L (3.5-5.1) 02/19/23 16:45 Chloride 100 mmol/L (98-107) 02/19/23 16:45 Carbon Dioxide 24 mmol/L (22-29) 02/19/23 16:45 Anion Gap 18.4 (5-19) 02/19/23 16:45 BUN 23 mg/dL (8-23) 02/19/23 16:45 Creatinine 1.5 mg/dL (0.5-0.9) H 02/19/23 16:45 GFR Calculation 35.4 mL/min (90-130) L 02/19/23 16:45 Glucose 96 mg/dL (65-115) 02/19/23 16:45 Calculated Osmolality 290 mOsm/kg (285-295) 02/19/23 16:45 Calcium 9.5 mg/dL (8.5-10.5) 02/19/23 16:45 Total Bilirubin 0.5 mg/dL (0.15-1.2) 02/19/23 16:45 AST 19 U/L (0-32) 02/19/23 16:45 ALT 15 U/L (0-33) 02/19/23 16:45 Alkaline Phosphatase 89 U/L (35-105) 02/19/23 16:45 Creatine Kinase 290 U/L (26-192) H 02/19/23 16:45 CK-MB (CK-2) 19.7 ng/mL (0-5.34) H 02/19/23 16:45 CK-MB (CK-2) Rel Index 6.7 % (0.0-10.4) 02/19/23 16:45 Troponin T Gen 5 ng/L 120 ng/L (0-10) H* 02/19/23 16:45 NT-Pro-B Natriuret Pep 489 pg/mL (0-125) H 02/19/23 17:43 Total Protein 5.9 g/dL (6.6-8.7) L 02/19/23 16:45 Albumin 3.4 g/dL (3.5-5.2) L 02/19/23 16:45 Globulin 2.5 g/dL (1.3-4.6) 02/19/23 16:45 Discharge Plan Discharge Patient Disposition: Admitted As Inpatient Clinical Impression: Elevated troponin, Fall, Renal failure Condition: Stable Coding Level of Care Code ED Arranging Funeral Director for Romie Everett
[2023-02-19 16:53] LABS: Basophils # 0.1 10^3/uL (0.0-0.1); Basophils % 0.4 %; Eosinophils # 0.2 10^3/uL (0.0-0.8); Eosinophils % 1.9 %; Hematocrit 37.4 % (37.0-47.0); Hemoglobin 12.2 g/dL (11.5-15.3); Lymphocytes # 3.2 10^3/uL (0.8-4.8); Lymphocytes % 26.3 %; Mean Corpuscular HGB Conc 32.6 g/dL (30.0-36.0); Mean Corpuscular Volume 82.7 fl (81-99); Mean Platelet Volume 10.3 fL (7.4-10.4); Monocytes # 0.9 10^3/uL (0.2-0.9); Monocytes % 7.1 %; Neutrophils # 7.84 10^3/uL (1.8-7.7); Neutrophils % 63.9 %; Nucleated Red Blood Cells % 0 %; Platelet Count 324 10^3/cmm (130-400); Red Blood Count 4.52 10^6/uL (4.1-5.3); Red Cell Distribution Width 15.8 % (12.1-15.1); White Blood Count 12.3 10^3/uL (4.0-10.0)
[2023-02-19 17:29] LABS: Alanine Aminotransferase 15 U/L (0-33); Albumin Level 3.4 g/dL (3.5-5.2); Alkaline Phosphatase 89 U/L (35-105); Aspartate Amino Transferase 19 U/L (0-32); Blood Urea Nitrogen 23 mg/dL (8-23); Calcium 9.5 mg/dL (8.5-10.5); Carbon Dioxide 24 mmol/L (22-29); Chloride 100 mmol/L (98-107); Globulin 2.5 g/dL (1.3-4.6); Glomerular Filtration Rate 35.4 mL/min (90-130); Glucose 96 mg/dL (65-115); Osmolality Calculated 290 mOsm/kg (285-295); Sodium 138 mmol/L (136-145); Total Bilirubin 0.5 mg/dL (0.15-1.2); Total Protein 5.9 g/dL (6.6-8.7)
[2023-02-19 17:37] LABS: Anion Gap 18.4 (5-19)
[2023-02-19 17:41] LABS: Potassium 4.4 mmol/L (3.5-5.1)
[2023-02-19] MEDS: sodium chloride 0.9% 500 ML IV (17:43)
[2023-02-19 17:52] VITALS: BP 134/70; PULSE 68; O2SAT 95
[2023-02-19 18:21] LABS: NT Pro B Type Natriuretic Pept 489 pg/mL (0-125)
[2023-02-19 18:36] LABS: CKMB 19.7 ng/mL (0-5.34); CKMB Relative Index 6.7 % (0.0-10.4); Creatine Phosphokinase 290 U/L (26-192)
--- NOTE | 2023-02-19 19:33 | ECG_ITS ---
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 Measurements Intervals [place] Rate: 73 P: 53 DE: 161 QRS: 4 QRSD: 93 T: 65 QT: 378 QTc: 417 Interpretive Statements SINUS RHYTHM POSSIBLE ANTERIOR MYOCARDIAL INFARCTION , PROBABLY OLD [30 ms Q WAVE IN V3/V4, OR R < 0.2 mV IN V4] INFERIOR MYOCARDIAL INFARCTION , PROBABLY OLD [40+ ms Q WAVE AND/OR ST/T ABNORMALITY IN II/aVF] Compared to ECG 02/19/2023 16:06:56 Myocardial infarct finding now present Electronically Signed On 02-20-2023 10:22:24 CDT by Jose Zapata M.D. [id number]
--- NOTE | 2023-02-19 19:45 | PM.HP ---
Providers/Chief Complaint Chief Complaint: SOB; DIZZY; FALL History of Present Illness Watson Bridges is a 62 year old female PMHx of HTN, HLD, CAD with h/o multiple stents (mLAD mid LCx in 2011, RCA 2013, mid LCx 2015 and LAD 2016), DM-2 presented at home. Patient is stating that her last stent was placed in September at [facility], patient is stating that she experience chest pain yesterday which relieved on its own today she did not experience any chest pain however when she was using the restroom she felt dizzy, fell on the ground around 11 PM 02/18 and she stayed on the ground until today when she gathered her encouraged and strength to call 911/EMS. Please note patient has been experiencing diarrhea for last 3 weeks, she is experiencing 3 stools/loose stools every day and she kept taking her Lasix, she has not experienced any abdominal pain, vomiting or fever. In the ER there was concern for non-STEMI for baseline high troponin, however no active chest pain, patient is awake and alert, I have requested orthostatics, Review of Systems Const: Reports: chills Eyes: Denies: change in vision ENMT: Denies: throat pain Card: Denies: chest pain Resp: Reports: dyspnea GI: Reports: abdominal pain and nausea : Denies: flank pain Musc: Denies: neck pain Skin/Breast: Denies: rash Neuro: Denies: headache(s) Psych: Reports: anxiety Endo: Denies: polyuria All/Imm: Denies: urticaria Medications/Allergies Home Medications Medication Instructions Recorded Confirmed Last Taken Type walker with seat and brakes #1 ea 03/26/20 02/10/23 08/08/20 22:30 Rx hydrocodone 10 mg-acetaminophen 1 tab PO Q6H PRN pain 30 days #120 05/27/20 02/10/23 10/13/21 Rx 325 mg tablet tabs lancets 30 gauge (TRUEplus Lancets) See Rx Instructions .Route 09/13/21 02/10/23 10/13/21 Rx .COMPLEX #100 ea insulin admin supplies (InPen (for #150 ea 10/04/21 02/10/23 Unknown Rx Humalog) subcutaneous) aspirin 81 mg tablet,delayed 81 mg PO DAILY@10/14/21 02/10/23 10/13/21 History release Abdominal binder #1 ea 02/28/22 02/10/23 Unknown Rx diabetic shoes and inserts #1 ea 05/11/22 02/10/23 Unknown Rx insulin syringe-needle U-100 1/2 #100 ea 09/23/22 02/10/23 Unknown Rx mL 31 gauge x 15/64 (BD Veo Insulin Syringe Ultra-Fine) lancets 33 gauge (BD Ultra Fine #100 ea 09/23/22 02/10/23 Unknown Rx Lancets) blood sugar diagnostic (Accu-Chek #100 ea 12/09/22 02/10/23 Unknown Rx Guide test strips) tamsulosin 0.4 mg capsule 0.4 mg PO BEDTIME@01/06/23 02/10/23 Unknown History Lactobacillus acidophilus 1 tab PO DAILY 01/18/23 02/10/23 Unknown History (Acidophilus chewable tablet) atorvastatin 40 mg tablet 40 mg PO DAILY@01/18/23 02/10/23 Unknown History bupropion HCl 200 mg tablet,12 hr 200 mg PO BEDTIME 01/18/23 02/10/23 Unknown History sustained-release buspirone 15 mg tablet 15 mg PO BEDTIME 01/18/23 02/10/23 Unknown History calcium carbonate 200 mg calcium 1,000 mg PO DAILY PRN Stomach Upset 01/18/23 02/10/23 Unknown History (500 mg) chewable tablet (Tums) carvedilol 25 mg tablet 25 mg PO BID@01/18/23 02/10/23 Unknown History cholecalciferol (vitamin D3) 1,250 50,000 unit PO Q7D 01/18/23 02/10/23 Unknown History mcg (50,000 unit) capsule diclofenac sodium 1 % topical gel 2 g topical QID PRN Pain 01/18/23 02/10/23 Unknown History (Voltaren Arthritis Pain) digoxin 125 mcg (0.125 mg) tablet 125 mcg PO DAILY@01/18/23 02/10/23 Unknown History dulaglutide 1.5 mg/0.5 mL 1.5 mg SUBCUT Q7D 01/18/23 02/10/23 Unknown History subcutaneous pen injector (Trulicity) fluticasone propionate 50 2 inh inhalation BID PRN unknown 01/18/23 02/10/23 Unknown History mcg/actuation blister powder for inhalation (Flovent Diskus) fluticasone propionate 50 2 spray intranasal DAILY PRN 01/18/23 02/10/23 3 Days Ago History mcg/actuation nasal Allergy Symptoms ~01/15/23 spray,suspension furosemide 40 mg tablet 40 mg PO QAM 01/18/23 02/10/23 Unknown History hydralazine 50 mg tablet 50 mg PO BID@01/18/23 02/10/23 Unknown History insulin glargine 100 unit/mL (3 32 unit SUBCUT QAM 01/18/23 02/10/23 01/18/23 History mL) subcutaneous pen (Lantus Solostar U-100 Insulin) insulin lispro 100 unit/mL 25 unit SUBCUT TID 01/18/23 02/10/23 01/18/23 History subcutaneous pen (Humalog KwikPen (U-100) Insulin) isosorbide mononitrate 120 mg 120 mg PO BID@01/18/23 02/10/23 Unknown History tablet,extended release 24 hr losartan 50 mg tablet 50 mg PO DAILY@01/18/23 02/10/23 Unknown History menthol-colloidal oatmeal 0.1 % 1 ea topical DAILY PRN unknown 01/18/23 02/10/23 Unknown History lotion metformin 1,000 mg tablet 500 mg PO BID@01/18/23 02/10/23 Unknown History nitroglycerin 0.4 mg sublingual 0.4 mg sublingual Q5M PRN Chest 01/18/23 02/10/23 Unknown History tablet (Nitrostat) Pain nystatin 100,000 unit/gram topical 1 applic topical BID PRN unknown 01/18/23 02/10/23 Unknown History cream potassium chloride 10 mEq 10 meq PO DAILY@01/18/23 02/10/23 Unknown History tablet,extended release ticagrelor 90 mg tablet (Brilinta) 90 mg PO BID@01/18/23 02/10/23 Unknown History ASO to RIGHT #1 ea 01/20/23 02/10/23 Unknown Rx wheel-chair with foot rest #1 ea 01/20/23 02/10/23 Unknown Rx oxygen tubing #1 ea 01/24/23 02/10/23 Unknown Rx ropinirole 0.5 mg tablet 0.5 mg PO BEDTIME@22 #30 tabs 01/24/23 02/10/23 Unknown Rx Incontinence Supplies #1 ea 01/27/23 02/10/23 Unknown Rx Allergies Allergy/AdvReac Type Severity Reaction Status Date / Time hyoscyamine Allergy Severe ADR-Itching Verified 02/10/23 09:38 ciprofloxacin [From Cipro] Allergy hives Verified 02/10/23 09:38 citalopram Allergy effects Verified 02/10/23 09:38 speach and memory clopidogrel [From Plavix] Allergy unk Verified 02/10/23 09:38 ibuprofen Allergy RASH/ Verified 02/10/23 09:38 SWELLING morphine Allergy ITCHING Verified 02/10/23 09:38 famotidine AdvReac Mild itching Verified 02/10/23 09:38 esomeprazole [From Nexium] AdvReac Unknown Verified 02/10/23 09:38 cefdinir Allergy unknown Uncoded 02/08/23 11:35 PFSH Acute PFSH: Medical History Bilateral lower extremity edema CAD (coronary artery disease) Chronic cystitis Chronic low back pain Constipation CVA (cerebral vascular accident) DM type 2 (diabetes mellitus, type 2) Dyslipidemia GERD (gastroesophageal reflux disease) Gross hematuria HTN (hypertension) Long-term use of high-risk medication Migraine headache Morbid obesity Opioid contract exists BETH (obstructive sleep apnea) Osteoporosis Pulmonary embolism, bilateral RLS (restless legs syndrome) Small bowel strangulation Surgical History H/O heart artery stent History of partial surgical removal of colon Hx of total knee replacement S/P appendectomy S/P cholecystectomy S/P hysterectomy S/P tonsillectomy and adenoidectomy Family History Grandfather Cancer Family/Other Myocardial infarct MOTHER, FATHER, BROTHER, SISTER Hypertension Diabetes Mother , at age 66 CAD (coronary artery disease) Father , at age 74 CAD (coronary artery disease) Sister CAD (coronary artery disease) Brother CAD (coronary artery disease) Other Stroke Denies family history of Anesthesia complication Bleeding disorder Social History Smoking and tobacco status: current some day smoker Alcohol intake: never Substance/Drug Use: current Substance/Drug use frequency: other Other substance/drug use details: smokes medical karelyjauna occasionally at night to help her sleep Lives independently: Yes Marital status: Current occupational status: disabled Current gender identity: Female Special vik needs: No Vitals/I&O/Wt Last Vital Signs Temp 97.5 F L 02/19/23 16:00 Pulse 68 02/19/23 17:52 Resp 18 02/19/23 16:00 BP 134/70 02/19/23 17:52 Pulse Ox 95 02/19/23 17:52 O2 Del Method Room Air 02/19/23 17:52 Physical Exam Narrative: Morbidly obese Nonpitting edema of legs It is hard to assess her volume status GCS 15 Nonfocal neuro exam Pleasant cooperative Abdomen nontender S1, S2 Afebrile Currently on room air No active crackles Data 02/19/23 16:45 02/19/23 16:45 A&P Assessment and plan (1) Elevated troponin: (2) Fall: (3) Recurrent falls: (4) Generalized weakness: (5) CAD (coronary artery disease): Qualifiers: Coronary Disease-Associated Artery/Lesion type: [place] artery [place] vs. 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 insulin (8) Generalized muscle weakness: (9) Chronic low back pain: Qualifiers: Back pain laterality: unspecified Plan Recurrent falls B/lknee osteoarthritis Morbid obesity, metabolic syndrome Diarrhea for last 3 weeks :check orthostatics EKG without ischemic infarctive changes No active chest pain Check echo Check D-dimer and orthostatic vitals Trauma lay scan is negative for any fractures I will continue dual antiplatelet therapy for recent stent placed in September at [facility] Full code Please consult cardiology if troponin keeps rising GIANCARLO: Likely dehydration related Gentle fluid hydration overnight Non-STEMI baseline troponin is 120 with recent fall we will request therapeutic Lovenox along dual antiplatelet therapy continue high-dose statins, Coreg, Imdur Patient is chest pain-free Mild muscle injury no rhabdomyolysis I would avoid Lasix and potassium supplementation for today Diarrhea: Rule out C. difficile, check stool sample Patient experiencing diarrhea for last 3 weeks Check orthostatics Full code Cardiac consistent carb diet with sliding scale and insulin Attestations Medical Necessity Statement*: Patient lives with family at home, anticipating discharge within 48hrs Diagnoses Elevated troponin R77.8 Fall W19.XXXA Recurrent falls R29.6 Generalized weakness R53.1 CAD (coronary artery disease) I25.10 Coronary Disease-Associated Artery/Lesion type: [place] artery [place] vs. 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
[2023-02-19 20:14] LABS: D Dimer 2.23 ug/mIFEU (0-0.59)
[2023-02-19 21:02] VITALS: BP 130/62; BP 136/72; BP 150/78; PULSE 75; PULSE 76; PULSE 81
[2023-02-19 21:32] LABS: Add Urine Microscopic? YES; Bilirubin Urine Neg (Negative); Blood Urine 2+ (Negative); Glucose Urine UA Norm (Normal); Ketones Urine Negative (Negative); Leukocyte Esterase Urine 2+ (Negative); Nitrate Urine Positive (Negative); Protein Urine 1+ (Negative); Urine Appearance Cloudy (CLEAR); Urine Color Yellow (Yellow); Urobilinogen Urine Norm (Negative); pH Urine 5 (5-7)
[2023-02-19 21:34] LABS: Bacteria Urine 3+ /hpf; RBC Urine 0-4 /hpf (0-2); Squamous Epithelial Cell Urine 40-55 /hpf (0-5); WBC Urine TOO NUMEROUS TO CNT /hpf (0-5)
[2023-02-19 21:35] LABS: Add Urine Culture? No; Calcium Oxalate Crystals Urine 0-4 /hpf
[2023-02-19 21:42] LABS: Estmated Average Glucose 280; Hemoglobin A1C 11.4 % (4.0-6.0)
[2023-02-19 21:46] LABS: Troponin(5th) Baseline 120 ng/L (0-10)
[2023-02-19 21:47] LABS: Troponin 5 2HR 130.6 ng/L (0-10); Troponin 5 2HR Delta 10.6 ABS# (0-10)
[2023-02-19 21:49] LABS: Thyroid Stimulating Hormone 2.47 uIU/mL (0.27-4.20); Vitamin B12 453 pg/mL (232-1245)
[2023-02-19 22:04] VITALS: PULSE 68; RESP 16; O2SAT 95
[2023-02-19 22:31] VITALS: BP 160/103; PULSE 106; O2SAT 95
--- NOTE | 2023-02-19 22:33 | PC.NURSE ---
discharge vital were incorrect, correct vitals are Bp- 119/67, HR 73, 97% RA, temp 97.7
[2023-02-19] MEDS: sodium chloride 0.9% 1,000 ML 30 ML IV (22:58)
[2023-02-19] MEDS: ticagrelor 90 mg Tablet PO (22:59)
[2023-02-19] MEDS: tamsulosin 0.4 mg Capsule PO (22:59)
[2023-02-19] MEDS: enoxaparin 100 mg/mL Syringe SUBCUT (22:59)
[2023-02-19] MEDS: carvedilol 25 mg Tablet PO (22:59)
[2023-02-19] MEDS: ropinirole 0.25 mg Tablet 0.5 MG PO (22:59)
--- NOTE | 2023-02-19 23:09 | ECG_ITS ---
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 Measurements Intervals [place] Rate: 72 P: 45 [place]: 152 QRS: -1 QRSD: 85 T: 59 QT: 378 QTc: 415 Interpretive Statements SINUS RHYTHM Compared to ECG 02/19/2023 19:33:01 Myocardial infarct finding no longer present Electronically Signed On 02-20-2023 10:23:46 CDT by Jose Zapata M.D. [id number]
[2023-02-19 23:43] LABS: Glucose Point of Care 117 mg/dL (70-110)
[2023-02-20 00:06] LABS: Troponin 5 6HR 127.6 ng/L (0-10); Troponin 5 6HR Delta 7.6 ng/L (0-12)
[2023-02-20 04:33] VITALS: BP 120/69; PULSE 78; RESP 17; TEMP 36.3; O2SAT 97
[2023-02-20 05:25] LABS: Basophils % 0.4 %; Eosinophils # 0.2 10^3/uL (0.0-0.8); Eosinophils % 2.1 %; Hemoglobin 11.2 g/dL (11.5-15.3); Lymphocytes % 28.9 %; Mean Corpuscular Hemoglobin 27.2 pg (28.0-34.0); Mean Platelet Volume 10.4 fL (7.4-10.4); Monocytes # 0.7 10^3/uL (0.2-0.9); Monocytes % 6.6 %; Neutrophils % 61.5 %; Nucleated Red Blood Cells % 0 %; Platelet Count 279 10^3/cmm (130-400); Red Blood Count 4.12 10^6/uL (4.1-5.3); White Blood Count 10.3 10^3/uL (4.0-10.0)
[2023-02-20 05:50] LABS: Anion Gap 14.7 (5-19); Blood Urea Nitrogen 23 mg/dL (8-23); Calcium 8.8 mg/dL (8.5-10.5); Carbon Dioxide 24 mmol/L (22-29); Chloride 104 mmol/L (98-107); Glomerular Filtration Rate 41.8 mL/min (90-130); Glucose 124 mg/dL (65-115); Magnesium 1.7 mg/dL (1.7-2.3); Osmolality Calculated 293 mOsm/kg (285-295); Phosphorus 4.5 mg/dL (2.5-4.5); Potassium 3.7 mmol/L (3.5-5.1); Sodium 139 mmol/L (136-145)
[2023-02-20] MEDS: isosorbide mononitrate ER 60 mg Tablet 120 MG PO (06:00)
[2023-02-20] MEDS: hyDRALAzine 50 mg Tablet PO (06:00)
[2023-02-20] MEDS: ticagrelor 90 mg Tablet PO ×2 (06:00→22:10)
[2023-02-20] MEDS: atorvastatin 40 mg Tablet 80 MG PO (06:00)
[2023-02-20] MEDS: aspirin 81 mg EC Tablet PO (06:00)
[2023-02-20 07:26] VITALS: BP 111/59; PULSE 80; RESP 17; TEMP 36.8; O2SAT 97
[2023-02-20 07:35] VITALS: PULSE 64; RESP 18; O2SAT 98
--- NOTE | 2023-02-20 08:00 | NM_ITS ---
WS: [id number] NUCLEAR MEDICINE LUNG VENTILATION AND PERFUSION CLINICAL INFORMATION: syncope TECHNIQUE: Ventilation/perfusion lung scan with 31.0 mCi technetium 99m DTPA. 4.7 mCi technetium 99m MAA COMPARISON: None. FINDINGS: Recent radiograph reviewed 02/19/2023. Cardiomegaly. Symmetric bilateral radiotracer uptake on the perfusion images. Some radiotracer deposition along the central bronchi on the ventilatory images. No mismatched ventilation/perfusion defects to indicate p ulmonary embolus. IMPRESSION: 1. Low probability for pulmonary embolus.
--- NOTE | 2023-02-20 09:13 | PC.PHAR ---
PT NO LONGER HAS A NURSE TO SET UP MEDS. PT USES [facility] TO SET UP PILL PKS. PHARMACY STATES BUPROPION 200 MG SR 12 HOUR IS 1 TAB EVERY 12 HOURS. BUSPIRONE 15 MG TABLET IS 1 TAB TWICE DAILY. LANTUS INSULIN IS 35 UNITS EVERY MORNING. HUMALOG IS 29 UNITS 3 TIMES DAILY. METFORMIN 1000 MG 1 TAB ONCE DAILY.
[2023-02-20] MEDS: sennosides-docusate Tablet 1 TAB PO (09:20)
[2023-02-20] MEDS: cefTRIAXone 1,000 MG in sodium chloride 0.9% (plus) 50 ML 100 MG IV (09:20)
[2023-02-20] MEDS: insulin lispro 100 unit/1 mL 10 UNIT SUBCUT ×3 (09:21→17:10)
[2023-02-20] MEDS: insulin glargine 100 units/1 mL 28 UNIT SUBCUT (10:58)
[2023-02-20] MEDS: carvedilol 25 mg Tablet PO ×2 (11:04→22:10)
[2023-02-20] MEDS: enoxaparin 100 mg/mL Syringe SUBCUT ×2 (11:04→22:10)
[2023-02-20 12:43] LABS: Adenovirus Not Detected (NOT DETECT); Chlamydia Pneumoniae Not Detected (NOT DETECT); Coronavirus 229E,HKU1,NL63,OC4 Not Detected (NOT DETECT); Human Metapneumovirus Not Detected (NOT DETECT); Human Rhinovirus/Enterovirus Not Detected (NOT DETECT); Influenza A Not Detected (NOT DETECT); Influenza A H1 Not Detected (NOT DETECT); Influenza A H1-2009 Not Detected (NOT DETECT); Influenza A H3 Not Detected (NOT DETECT); Influenza B Not Detected (NOT DETECT); Mycoplasma Pneumoniae Not Detected (NOT DETECT); Parainfluenza Virus Type 1 Not Detected (NOT DETECT); Parainfluenza Virus Type 2 Not Detected (NOT DETECT); Parainfluenza Virus Type 3 Not Detected (NOT DETECT); Parainfluenza Virus Type 4 Not Detected (NOT DETECT); Respiratory Syncytial Virus A Not Detected (NOT DETECT); Respiratory Syncytial Virus B Not Detected (NOT DETECT); SARS-COV-2 Not Detected (NOT DETECT)
--- NOTE | 2023-02-20 14:38 | P.PN_ITS ---
Subjective Subjective: She reports has been getting lightheaded when getting up or standing. Reports at home normally walks with a walker, however, has been limited due to lightheadedness with upright posture. She has been having some burning at the end of urination. No chest pain or pressure. States had a stress test in September and [facility] at [facility]. Vitals/I&O/Wt Last Vital Signs Temp 98.2 F 02/20/23 07:26 Pulse 64 02/20/23 07:35 Resp 18 02/20/23 07:35 BP 111/59 02/20/23 07:26 Pulse Ox 98 02/20/23 07:35 O2 Del Method Nasal Cannula 02/20/23 07:35 O2 Flow Rate 2 02/20/23 07:35 02/19/23 02/20/23 02/20/23 22:59 06:59 14:59 Intake Total 500 / 500 240 / 740 290 / 290 Balance 500 / 500 240 / 740 290 / 290 Weight last 48 hrs Weight 110.404 kg Physical Exam Const: COMMON NORMALS: patient oriented x3 and alert GENERAL APPEARANCE: cooperative ORIENTATION/CONSCIOUSNESS: Yes awake HENMT: COMMON NORMALS: oropharynx normal Neck/C-Spine: COMMON NORMALS: no JVD Resp: COMMON NORMALS: normal respiratory effort and clear to auscultation bilaterally AUSCULTATION: clear to auscultation bilaterally Cardio: COMMON NORMALS: no JVD, regular rhythm, S1 normal heart sound present, S2 normal heart sound present and No murmurs present (Cardio) RHYTHM: regular rhythm HEART SOUNDS: S1 normal heart sound present and S2 normal heart sound present GI: COMMON NORMALS: Normal to inspection, nondistended, normoactive bowel sounds present, Soft to palpation and non-tender PALPATION: Yes Soft to palpation Extremity: COMMON NORMALS: no joint enlargement and no pedal edema Neuro: COMMON NORMALS: patient oriented x3 and moves all extremities SENSORIUM/ORIENTATION: Yes alert Skin: COMMON NORMALS: no rashes or lesions noted GENERAL SKIN EXAM: no rashes or lesions noted Data 02/20/23 05:05 02/20/23 05:05 Micro: Microbiology 02/19/23 09:30 Occult Blood (FIT) - Final Stool - Stool Aspirate 02/19/23 09:30 Stool Lactoferrin - Final Stool A&P Assessment and plan (1) Elevated troponin: (2) Fall: (3) Recurrent falls: (4) Generalized weakness: (5) CAD (coronary artery disease): Qualifiers: Coronary Disease-Associated Artery/Lesion type: [place] artery [place] vs. transplanted heart: [place] heart Associated angina: angina presence unspecified Qualified Code(s): I25.10 - Atherosclerotic heart disease of [place] coronary artery without angina pectoris (6) Dyspnea on exertion: (7) Type 2 diabetes mellitus with diabetic polyneuropathy: Qualifiers: Diabetes mellitus adjunct faculty for medical terminology insulin use: with adjunct faculty for medical terminology use Qualified Code(s): E11.42 - Type 2 diabetes mellitus with diabetic polyneuropathy; Z79.4 - senior living (current) use of insulin (8) Generalized muscle weakness: (9) Chronic low back pain: Qualifiers: Back pain laterality: unspecified Plan Recurrent falls Possibly multifactorial falls, does appear to have a component of orthostasis. Orthostatic blood pressures per se were not remarkable comparing laying to stand ing, however, from sitting to standing did have a decrease from 150 down to 130 systolic. Subjectively she states he does get lightheaded when upright. Discussed with her orthostatic precautions. She is noted to be on Imdur as well as hydralazine. We will decrease doses to 25 and 60 mg respectively. Pending TTE. VQ scan obtained, noted low probability for PE. Pending lower extremity duplex. She does use a walker when ambulating. Pending PT assessment. She additionally has been having diarrhea and continue taking diuretics. GIANCARLO on presentation. Creatinine now noted with some improvement, creatinine down to 1.3. BUN down to 23. Discussed with her we will additionally assess swab for viral panel with COVID PCR., Currently noted negative. Pending stool studies. Diuretics on hold for now. GIANCARLO: Kidney function noted with improvement, BUN down to 23, creatinine down to 1.3. Sodium 139, potassium 3.7. Bicarb 24. Anion gap 14.7. Hold diuretics. Monitor KIRILL. She does have history of CHF. Reports lower extremity edema. Hold off additional IV fluid. Very easy to go into fluid overload/CHF. Hypomagnesemia: Magnesium 1.7. Give 1 g magnesium. Recheck magnesium level. B/lknee osteoarthritis Morbid obesity, metabolic syndrome Diarrhea for last 3 weeks: Follow-up stool studies. EKG without ischemic infarctive changes No active chest pain Continue dual antiplatelet therapy for recent stent placed in September at [facility] Records requested. Non-STEMI baseline troponin is 120 with recent fall we will request therapeutic Lovenox along dual antiplatelet therapy continue high-dose statins, Coreg, Imdur At risk of arrhythmia, monitor on telemetry. Request records from [facility]. Patient is chest pain-free Mild muscle injury no rhabdomyolysis Holding Lasix and potassium supplementation for today Full code Cardiac consistent carb diet with sliding scale and insulin Discussed with case management during rounds. Attestations Medical Necessity Statement*: Continue hospitalization for additional assessment due to recurrent falls, orthostatic symptoms, GIANCARLO, troponin elevation in a lady with coronary artery disease, stenting back in September. Diagnoses Elevated troponin R77.8 Fall W19.XXXA Recurrent falls R29.6 Generalized weakness R53.1 CAD (coronary artery disease) I25.10 Coronary Disease-Associated Artery/Lesion type: [place] artery [place] vs. transplanted heart: [place] heart Associated angina: angina presence unspecified Dyspnea on exertion R06.00 Type 2 diabetes mellitus with diabetic polyneuropathy E11.42; Z79.4 Diabetes mellitus adjunct faculty for medical terminology insulin use: with adjunct faculty for medical terminology use Generalized muscle weakness M62.81 Chronic low back pain M54.5; G89.29 Back pain laterality: unspecified
[2023-02-20 16:00] VITALS: BP 141/74; PULSE 77; RESP 17; TEMP 36.4; O2SAT 95
[2023-02-20] MEDS: hyDRALAzine 25 mg Tablet PO (17:13)
[2023-02-20] MEDS: HYDROcodone-acetaminophen 10-325 mg Tablet 1 TAB PO (17:14)
[2023-02-20] MEDS: isosorbide mononitrate ER 60 mg Tablet PO (17:14)
[2023-02-20 20:00] VITALS: BP 122/73; PULSE 83; RESP 19; TEMP 36.8; O2SAT 95
--- NOTE | 2023-02-20 21:02 | USCV_ITS ---
Watson Bridges Age: 62 Gender: F : 1960 Exam Date: 02/20/2023 13:52 Ordering Phys: Renay Ramírez MD Technologist: Marino Trivedi [place] [facility] [place]: [place] BP: 132 / 67 HR: 70 Rhythm: Sinus Technical Quality: Adequate MEASUREMENTS (Male / Female) Normal Values 2D ECHO LV Diastolic Diameter PLAX 4.0 cm 4.2 - 5.9 / 3.9 - 5.3 cm LV Systolic Diameter PLAX 2.9 cm IVS Diastolic Thickness 1.2 cm 0.6 - 1.0 / 0.6 - 0.9 cm IVS Systolic Thickness 1.3 cm LVPW Diastolic Thickness 1.0 cm 0.6 - 1.0 / 0.6 - 0.9 cm LVPW Systolic Thickness 1.4 cm LVOT Diameter 2.0 cm LV Ejection Fraction 2D Teich 46.3 % LV Ejection Fraction MOD 2C 51.5 % LV Ejection Fraction 2C AL 51.5 % LA Diameter 4.1 cm M-MODE Aortic Annulus Diameter 3.6 cm LA Ao Ratio MM 1.2 MV E Point Septal Separation 0.7 cm DOPPLER AV Peak Velocity 158.0 cm/s LVOT Peak Velocity 87.0 cm/s AV Area Cont Eq vti 1.8 cm squared AV Area Cont Eq pk 1.7 cm squared MV Area PHT 2.9 cm squared Mitral E to A Ratio 0.8 MV E' Velocity 91.0 cm/s Mitral E to LV E' Septal Ratio 17.5 TR Peak Velocity 143.0 cm/s TR Peak Gradient 8.2 mmHg TV Peak E Velocity 68.0 cm/s Right Atrial Pressure 3.0 mmHg Pulmonary Artery Systolic Pressu 11.2 mmHg RV Acceleration Time 0.1 s FINDINGS Left Ventricle Left ventricle is normal in size. LV systolic function is normal with EF of 50-55%. No regional wall motion abnormalities seen. Grade 1 diastolic dysfunction. Right Ventricle Normal in size and function Right Atrium Normal in size Left Atrium Normal in size Mitral Valve Mild to moderate mitral annular calcification. Trace mitral regurgitation. Aortic Valve Aortic valve is thickened. No significant stenosis or regurgitation. Tricuspid Valve Mild tricuspid regurgitation. Insufficient TR jet to calculate RVSP. Pulmonic Valve Not well visualized Pericardium Normal Aorta Normal in size IVC Appears to be normal CONCLUSIONS LV systolic function is normal with EF of 50 to 55%. Grade 1 diastolic dysfunction Trace mitral regurgitation Mild tricuspid regurgitation No comparison studies are available. Jaiden Newell MD (Electronically Signed) Final Date: 20 February 2023 18:50 S
--- NOTE | 2023-02-20 21:43 | USCV_ITS ---
Watson Bridges Age: 62 Gender: F : 1960 Exam Date: 02/20/2023 14:32 Ordering Phys: Renay Ramírez MD Technologist: Marino Trivedi [place]am Location[place] [facility] [place]: swelling HISTORY: Lower extremity edema. PROCEDURES: Venous duplex imaging was performed in bilateral lower extremities. The following venous structures were evaluated: common femoral vein, profunda vein, proximal portion of the greater saphenous vein, superficial femoral vein, and the popliteal vein. FINDINGS: No evidence of DVT seen in any vessel visualized at this time. CONCLUSIONS No evidence of right lower extremity DVT. No evidence of left lower extremity DVT. Carlos Prescott MD (Electronically Signed) Final Date: 20 February 2023 15:49 S
[2023-02-20] MEDS: ipratropium-albuterol 3 mL Neb INHALATION (22:08)
[2023-02-20] MEDS: tamsulosin 0.4 mg Capsule PO (22:10)
[2023-02-20] MEDS: ropinirole 0.25 mg Tablet 0.5 MG PO (22:10)
[2023-02-20 22:14] VITALS: PULSE 68; RESP 16; O2SAT 99
[2023-02-21] VITALS (8 sets, daily range): BP systolic 105–146; BP diastolic 67–86; PULSE 70–89; RESP 16–19; TEMP 36.4–36.6; O2SAT 94–100
[2023-02-21] MEDS: HYDROcodone-acetaminophen 10-325 mg Tablet 1 TAB PO (00:53)
[2023-02-21] MEDS: hyDRALAzine 25 mg Tablet PO (06:30)
[2023-02-21] MEDS: isosorbide mononitrate ER 60 mg Tablet PO (06:30)
[2023-02-21] MEDS: aspirin 81 mg EC Tablet PO (06:30)
[2023-02-21] MEDS: ticagrelor 90 mg Tablet PO (06:30)
[2023-02-21] MEDS: atorvastatin 40 mg Tablet 80 MG PO (06:30)
[2023-02-21 06:36] LABS: Basophils # 0.1 10^3/uL (0.0-0.1); Basophils % 0.6 %; Eosinophils # 0.4 10^3/uL (0.0-0.8); Eosinophils % 4.4 %; Hematocrit 40.4 % (37.0-47.0); Hemoglobin 12.8 g/dL (11.5-15.3); Lymphocytes % 33.6 %; Mean Corpuscular HGB Conc 31.7 g/dL (30.0-36.0); Mean Corpuscular Hemoglobin 27.1 pg (28.0-34.0); Mean Corpuscular Volume 85.6 fl (81-99); Mean Platelet Volume 10.3 fL (7.4-10.4); Monocytes # 0.6 10^3/uL (0.2-0.9); Monocytes % 6.9 %; Neutrophils # 4.81 10^3/uL (1.8-7.7); Neutrophils % 54.1 %; Nucleated Red Blood Cells % 0 %; Platelet Count 301 10^3/cmm (130-400); Red Blood Count 4.72 10^6/uL (4.1-5.3); Red Cell Distribution Width 16.1 % (12.1-15.1); White Blood Count 8.9 10^3/uL (4.0-10.0)
[2023-02-21 07:25] LABS: Blood Urea Nitrogen 21 mg/dL (8-23); Calcium 9.1 mg/dL (8.5-10.5); Carbon Dioxide 25 mmol/L (22-29); Chloride 101 mmol/L (98-107); Glomerular Filtration Rate 50.7 mL/min (90-130); Glucose 273 mg/dL (65-115); Osmolality Calculated 295 mOsm/kg (285-295); Sodium 136 mmol/L (136-145)
[2023-02-21] MEDS: insulin lispro 100 unit/1 mL 10 UNIT SUBCUT ×2 (07:58→11:32)
[2023-02-21] MEDS: insulin glargine 100 units/1 mL 28 UNIT SUBCUT (09:27)
[2023-02-21] MEDS: acetaminophen 500 mg Tablet PO (09:28)
[2023-02-21] MEDS: cefTRIAXone 1,000 MG in sodium chloride 0.9% (plus) 50 ML 100 MG IV (09:28)
[2023-02-21] MEDS: sennosides-docusate Tablet 1 TAB PO (09:28)
[2023-02-21] MEDS: enoxaparin 100 mg/mL Syringe SUBCUT (11:32)
[2023-02-21] MEDS: carvedilol 25 mg Tablet PO (11:32)
--- NOTE | 2023-02-21 13:16 | XRR_ITS ---
PROCEDURE INFORMATION: Exam: XR Left Knee Exam date and time: 02/21/2023 1:32 PM Age: 62 years old Clinical indication: Injury or trauma; Fall; Blunt trauma; Knee; Left; Additional info: Fall, pain TECHNIQUE: Imaging protocol: Radiologic exam of the left knee. Views: 3 views. COMPARISON: CR XR knee LT 3V* [id number] 01/18/2023 10:57 AM FINDINGS: Bones/joints: There is narrowing of the medial compartment corresponding to moderate osteoarthritis Soft tissues: Normal. XR/XR knee LT 3V* [id number] IMPRESSION: 1. Moderate osteoarthritis 2. Otherwise No acute findings.
--- NOTE | 2023-02-21 13:16 | XRR_ITS ---
PROCEDURE INFORMATION: Exam: XR Left Hip Exam date and time: 02/21/2023 1:27 PM Age: 62 years old Clinical indication: Injury or trauma; Fall; Blunt trauma (contusions or hematomas); Left; Hip; Additional info: Fall, pain TECHNIQUE: Imaging protocol: Radiologic exam of the left hip. Views: 2 or 3 views hip with pelvis when performed. COMPARISON: CR (PELVIS, ) 02/19/2023 4:17 PM FINDINGS: Bones/joints: Unremarkable. No acute fracture. Soft tissues: Unremarkable. XR/XR hip LT 2-3V wo/w pel* [id number] IMPRESSION: No acute findings.
[2023-02-21 13:49] LABS: Digoxin 0.5 ng/mL (0.6-1.2)
--- NOTE | 2023-02-21 15:02 | PM.DCS ---
Discharge Providers Date of Admission: 02/19/23 19:51 Date of Discharge: February 21, 2023 Attending Provider at Admission: Cooper Donnelly Attending Provider at Discharge: Cooper Donnelly Diagnoses at Discharge Discharge Diagnosis (1) Elevated troponin: Status: Acute (2) Fall: Status: Acute (3) Recurrent falls: Status: Acute (4) Generalized weakness: Status: Acute (5) CAD (coronary artery disease): Status: Acute Qualifiers: Associated angina: angina presence unspecified Coronary Disease-Associated Artery/Lesion type: [place] artery [place] vs. transplanted heart: [place] heart Qualified Code(s): I25.10 - Atherosclerotic heart disease of [place] coronary artery without angina pectoris (6) Dyspnea on exertion: Status: Acute (7) Type 2 diabetes mellitus with diabetic polyneuropathy: Status: Acute Qualifiers: Diabetes mellitus supervisor intermediates insulin use: with supervisor intermediates use Qualified Code(s): E11.42 - Type 2 diabetes mellitus with diabetic polyneuropathy; Z79.4 - detention (current) use of insulin (8) Generalized muscle weakness: Status: Acute (9) Chronic low back pain: Status: Chronic Qualifiers: Back pain laterality: unspecified Reason for Visit Reason for Visit: SOB; DIZZY; FALL Hospital Course Hospital Course Pleasant 62-year-old lady with history of HTN, HLD, CAD with coronary stents, DM 2, other comorbidities was hospitalized for observation after presenting due to dizziness and presyncope with fall, additionally noted having diarrhea for about 3 weeks, continue taking diuretics, on presentation without finding of fracture on imaging occluding C-spine, hips and pelvis, received transient IV hydration, diuretic was held, noted to have positive orthostatics at least from sitting up to standing, presentation also noted with GIANCARLO, concern for possible NSTEMI initially with elevated troponin, but with flat trend, no PE, remained chest pain-free. Was assessed by echocardiogram with noted normal ejection fraction around grade 1 diastolic dysfunction, trace MVR, mild TVR. Noted normal D-dimer on presentation, VQ scan obtained, low probability for PE. Lower extremity venous duplex negative for DVT. Had an additional episode of slumping down when trying to get up from the commode. No obvious fracture or dislocation on exam, no erythema, bruising, left knee and hip x-rays repeated, no obvious fracture. Due to chronic pain, she arthritis she does have MRI of bilateral knees coming up as well. Digoxin level checked and not elevated. GIANCARLO gradually improved with fluid challenge, and tapering down of her medications. Some improvement in orthostatic hypotension, cautioned on strict orthostatic precautions and fall precautions. We discussed with her further decreasing her blood pressure medications at discharge, and hydralazine decreased down to 12.5 mg, Imdur decreased down to 30 mg. Please reassess orthostatics, blood pressures, continue to titrate medications to actually prevent orthostasis. While in the hospital also finding of suspected urinary tract infection, treated with ceftriaxone in the hospital, discharging with cefdinir course. Please follow-up urine culture which is still pending, currently growing gram-negative rods more than 100,000 CFU. Initial work-up with stool studies were obtained for diarrhea, C. difficile negative, as were bacterial and parasite panels. Positive lactoferrin. Negative Hemoccult. Please follow-up with and continue work-up with regards to persistent diarrhea if not resolving. She is asked to maintain lactose-free diet for now and hold diuretic. Please reassess volume status, consider when to resume diuretic as well. She is to seek medical attention in case of any worsening or new concerning symptoms. Physical Exam Const: COMMON NORMALS: patient oriented x3 and alert GENERAL APPEARANCE: cooperative ORIENTATION/CONSCIOUSNESS: Yes awake HENMT: COMMON NORMALS: oropharynx normal Neck/C-Spine: COMMON NORMALS: no JVD Resp: COMMON NORMALS: normal respiratory effort and clear to auscultation bilaterally AUSCULTATION: clear to auscultation bilaterally Cardio: COMMON NORMALS: no JVD, regular rhythm, S1 normal heart sound present, S2 normal heart sound present and No murmurs present (Cardio) RHYTHM: regular rhythm HEART SOUNDS: S1 normal heart sound present and S2 normal heart sound present GI: COMMON NORMALS: Normal to inspection, nondistended, normoactive bowel sounds present, Soft to palpation and non-tender PALPATION: Yes Soft to palpation Extremity: COMMON NORMALS: no joint enlargement and no pedal edema OTHER: Mild pain in medial knee with PROM, no bruising, swelling, erythema. No pain on PROM L hip including internal, external rotation. Neuro: COMMON NORMALS: patient oriented x3 and moves all extremities SENSORIUM/ORIENTATION: Yes alert Skin: COMMON NORMALS: no rashes or lesions noted GENERAL SKIN EXAM: no rashes or lesions noted Discharge Data Studies Completed and Pending Completed Studies During Hospitalization Category Date Time Status CT cervical spin wo con* [id number] Stat Cat Scan 02/19/23 16:[address] head wo con* [id number] Stat Cat Scan 02/19/23 16:03 Completed XR chest 1V portable [id number] Stat Exams 02/19/23 15:55 Completed XR hip LT 2-3V wo/w pel* [id number] Routine Exams 02/21/23 13:16 Completed XR hip LT 2-3V wo/w pel* [id number] Stat Exams 02/19/23 16:03 Completed XR knee LT 3V* [id number] Routine Exams 02/21/23 13:16 Completed NM pul vent and perfus* [id number] Routine Nuc Med 02/20/23 08:00 [place] [id number] Routine Ultrasound 02/20/23 21:43 Completed CV. echo complete* [id number] Routine Ultrasound 02/20/23 21:02 Completed Pending at discharge Category Date Time Status Basic Metabolic Panel AM LABS Lab 02/22/23 04:00 Ordered Basic Metabolic Panel AM LABS Lab 02/23/23 04:00 Ordered Complete Blood Count w/Auto AM LABS Lab 02/22/23 04:00 Ordered Complete Blood Count w/Auto AM LABS Lab 02/23/23 04:00 Ordered Urine Culture Routine Lab 02/20/23 08:41 Results Radiology Impressions Chest X-Ray 02/19/23 15:55 IMPRESSION: No acute findings. Cervical Spine CT 02/19/23 16:03 IMPRESSION: 1. No acute findings. 2. Multilevel degenerative changes. Head CT 02/19/23 16:03 IMPRESSION: No acute intracranial abnormality. Hip/Pelvis X-Ray 02/21/23 13:16 IMPRESSION: No acute findings. Knee X-Ray 02/21/23 13:16 IMPRESSION: 1. Moderate osteoarthritis 2. Otherwise No acute findings. Laboratory Results WBC 8.9 10^3/uL (4.0-10.0) 02/21/23 06:15 RBC 4.72 10^6/uL (4.1-5.3) 02/21/23 06:15 Hgb 12.8 g/dL (11.5-15.3) 02/21/23 06:15 Hct 40.4 % (37.0-47.0) 02/21/23 06:15 MCV 85.6 fl (81-99) 02/21/23 06:15 MCH 27.1 pg (28.0-34.0) L 02/21/23 06:15 MCHC 31.7 g/dL (30.0-36.0) 02/21/23 06:15 RDW 16.1 % (12.1-15.1) H 02/21/23 06:15 Plt Count 301 10^3/cmm (130-400) 02/21/23 06:15 MPV 10.3 fL (7.4-10.4) 02/21/23 06:15 Neut % (Auto) 54.1 % 02/21/23 06:15 Lymph % (Auto) 33.6 % 02/21/23 06:15 [place] % (Auto) 6.9 % 02/21/23 06:15 Eos % (Auto) 4.4 % 02/21/23 06:15 Baso % (Auto) 0.6 % 02/21/23 06:15 Neut # (Auto) 4.81 10^3/uL (1.8-7.7) 02/21/23 06:15 Lymph # (Auto) 3.0 10^3/uL (0.8-4.8) 02/21/23 06:15 [place] # (Auto) 0.6 10^3/uL (0.2-0.9) 02/21/23 06:15 Eos # (Auto) 0.4 10^3/uL (0.0-0.8) 02/21/23 06:15 Baso # (Auto) 0.1 10^3/uL (0.0-0.1) 02/21/23 06:15 Nucleated RBC % (auto) 0 % 02/21/23 06:15 Nucleated RBCs # 0.0 /100WBC 02/21/23 06:15 D-Dimer 2.23 ug/mIFEU (0-0.59) H 02/19/23 16:45 Sodium 136 mmol/L (136-145) 02/21/23 06:15 Potassium 4.0 mmol/L (3.5-5.1) 02/21/23 06:15 Chloride 101 mmol/L (98-107) 02/21/23 06:15 Carbon Dioxide 25 mmol/L (22-29) 02/21/23 06:15 Anion Gap 14.0 (5-19) 02/21/23 06:15 BUN 21 mg/dL (8-23) 02/21/23 06:15 Creatinine 1.1 mg/dL (0.5-0.9) H 02/21/23 06:15 GFR Calculation 50.7 mL/min (90-130) L 02/21/23 06:15 Glucose 273 mg/dL (65-115) H 02/21/23 06:15 POC Glucose 117 mg/dL (70-110) H 02/19/23 23:39 Estimat Average Glucose 280 02/19/23 16:45 Hemoglobin A1c 11.4 % (4.0-6.0) H 02/19/23 16:45 Calculated Osmolality 295 mOsm/kg (285-295) 02/21/23 06:15 Calcium 9.1 mg/dL (8.5-10.5) 02/21/23 06:15 Phosphorus 4.5 mg/dL (2.5-4.5) 02/20/23 05:05 Magnesium 2.0 mg/dL (1.7-2.3) 02/21/23 06:15 Total Bilirubin 0.5 mg/dL (0.15-1.2) 02/19/23 16:45 AST 19 U/L (0-32) 02/19/23 16:45 ALT 15 U/L (0-33) 02/19/23 16:45 Alkaline Phosphatase 89 U/L (35-105) 02/19/23 16:45 Creatine Kinase 290 U/L (26-192) H 02/19/23 16:45 CK-MB (CK-2) 19.7 ng/mL (0-5.34) H 02/19/23 16:45 CK-MB (CK-2) Rel Index 6.7 % (0.0-10.4) 02/19/23 16:45 Troponin T Gen 5 ng/L Cancelled 02/19/23 16:45 Troponin T Baseline 120 ng/L (0-10) H* 02/19/23 16:45 Troponin T 120 Minute 130.6 ng/L (0-10) H 02/19/23 21:09 Delta Troponin T 10.6 ABS# (0-10) H* 02/19/23 21:09 Troponin T Hi Sens 6Hr 127.6 ng/L (0-10) H 02/19/23 23:35 Troponin T Hi Sens 6Hr Delta 7.6 ng/L (0-12) 02/19/23 23:35 NT-Pro-B Natriuret Pep 489 pg/mL (0-125) H 02/19/23 17:43 Total Protein 5.9 g/dL (6.6-8.7) L 02/19/23 16:45 Albumin 3.4 g/dL (3.5-5.2) L 02/19/23 16:45 Globulin 2.5 g/dL (1.3-4.6) 02/19/23 16:45 Vitamin B12 453 pg/mL (232-1245) 02/19/23 21:09 TSH 2.47 uIU/mL (0.27-4.20) 02/19/23 21:09 Urine Color Yellow (Yellow) 02/19/23 19:05 Urine Appearance Cloudy (CLEAR) A 02/19/23 19:05 Urine pH 5 (5-7) 02/19/23 19:05 Ur Specific [place] 1.010 (1.005-1.030) 02/19/23 19:05 Urine Protein 1+ (Negative) H 02/19/23 19:05 Urine Glucose (UA) Norm (Normal) 02/19/23 19:05 Urine Ketones Negative (Negative) 02/19/23 19:05 Urine Blood 2+ (Negative) H 02/19/23 19:05 Urine Nitrate Positive (Negative) H 02/19/23 19:05 Urine Bilirubin Neg (Negative) 02/19/23 19:05 Urine Urobilinogen Norm mg/dL (Negative) 02/19/23 19:05 Ur Leukocyte Esterase 2+ (Negative) H 02/19/23 19:05 Urine RBC 0-4 /hpf (0-2) H 02/19/23 19:05 Urine WBC Too numerous to cnt /hpf (0-5) H 02/19/23 19:05 Ur Squamous Epith Cells 40-55 /hpf (0-5) H 02/19/23 19:05 Calcium Oxalate Crystal 0-4 /hpf H 02/19/23 19:05 Amorphous Sediment Not Reportable 02/19/23 19:05 Urine Bacteria 3+ /hpf (NONE) H 02/19/23 19:05 Digoxin 0.5 ng/mL (0.6-1.2) L 02/21/23 06:15 Coronavirus 229E (PCR) Not detected (NOT DETECT) 02/20/23 08:59 SARS-CoV-2 (PCR) Not detected (NOT DETECT) 02/20/23 08:59 Vitals Last Vital Signs Temp 97.6 F 02/21/23 12:00 Pulse 89 02/21/23 12:00 Resp 17 02/21/23 12:00 BP 128/71 02/21/23 12:00 Pulse Ox 94 02/21/23 12:00 O2 Del Method Room Air 02/21/23 12:00 O2 Flow Rate 2 02/21/23 11:19 Discharge Plan Discharge Patient Disposition: Home Condition: Stable Prescriptions: New hydralazine 25 mg Tablet 12.5 mg PO BID@, Qty: 90 0RF isosorbide mononitrate 30 mg tablet extended release 24 hr 30 mg PO DAILY Qty: 90 0RF cefdinir 300 mg capsule 300 mg PO BID 4 Days Qty: 8 0RF Continued (DME) walker with seat and brakes See Rx Instructions .Route .MEDSUPPLY Qty: 1 0RF Rx Instructions: As directed hydrocodone-acetaminophen 10-325 mg tablet 1 tab PO Q6H PRN (Reason: pain) 30 Days Qty: 120 0RF (DME) InPen (for Humalog) Insulin Pen See Rx Instructions .Route Qty: 150 0RF Rx Instructions: qid to inject insulin (DME) Abdominal binder See Rx Instructions .Route .MEDSUPPLY Qty: 1 0RF Rx Instructions: As directed (DME) diabetic shoes and inserts See Rx Instructions .Route .MEDSUPPLY Qty: 1 0RF Rx Instructions: As directed (DME) lancets [BD Ultra Fine Lancets] 33 gauge misc See Rx Instructions .Route Qty: 100 1RF Rx Instructions: As directed (DME) insulin syringe-needle U-100 [BD Veo Insulin Syringe UF] 1/2 mL 31 gauge x 15/64 syringe See Rx Instructions .ROUTE .MEDSUPPLY Qty: 100 2RF Rx Instructions: As directed tamsulosin 0.4 mg capsule 0.4 mg PO BEDTIME@22 ropinirole 0.5 mg tablet 0.5 mg PO BEDTIME@22 Qty: 30 2RF (DME) oxygen tubing See Rx Instructions .Route .MEDSUPPLY Qty: 1 0RF Rx Instructions: [employer], [place] (DME) ASO to RIGHT See Rx Instructions .Route .MEDSUPPLY Qty: 1 0RF Rx Instructions: As directed (DME) wheel-chair with foot rest See Rx Instructions .Route .MEDSUPPLY Qty: 1 0RF Rx Instructions: As directed by HOME lancets [TRUEplus Lancets] 30 gauge misc See Rx Instructions .ROUTE .COMPLEX Qty: 100 1RF Dose Instruction: TO check blood sugar FOUR TIMES DAILY Rx Instructions: TO check blood sugar FOUR TIMES DAILY (DME) Accu-Chek Guide test strips Strip See Rx Instructions .Route Qty: 100 5RF Rx Instructions: As directed; to test 5 x daily (DME) Incontinence Supplies See Rx Instructions .Route .MEDSUPPLY Qty: 1 0RF Rx Instructions: As directed digoxin 125 mcg (0.125 mg) tablet 125 mcg PO DAILY@12 calcium carbonate [Tums] 200 mg calcium (500 mg) Tablet,Chewable 1,000 mg PO DAILY PRN (Reason: Stomach Upset) nitroglycerin [Nitrostat] 0.4 mg Tablet, Sublingual 0.4 mg SUBLINGUAL Q5M PRN (Reason: Chest Pain) Rx Instructions: do not exceed 3 doses per episode atorvastatin 40 mg tablet 40 mg PO DAILY@07 Flovent Diskus 50 mcg/actuation blister with device 2 inh inhalation BID PRN (Reason: unknown) carvedilol 25 mg tablet 25 mg PO BID@ Rx Instructions: must administer with a meal/food potassium chloride 10 mEq tablet extended release 10 meq PO DAILY@07 buspirone 15 mg tablet 15 mg PO BID bupropion HCl 200 mg tablet sustained-release 12 hr 200 mg PO Q12H cholecalciferol (vitamin D3) 1,250 mcg (50,000 unit) capsule 50,000 unit PO Q7D Rx Instructions: Takes on Fridays Brilinta 90 mg tablet 90 mg PO BID@ insulin lispro [Humalog KwikPen Insulin] 100 unit/mL insulin pen 25 unit SUBCUT TID insulin glargine [Lantus Solostar U-100 Insulin] 100 unit/mL (3 mL) insulin pen 32 unit SUBCUT QAM Acidophilus 1 cap PO BID aspirin 81 mg Tablet,Delayed Release (Dr/Ec) 81 mg PO DAILY@07 Held metformin 1,000 mg tablet 1,000 mg PO DAILY Hold Instructions: Resume on 02/27/23. losartan 50 mg tablet 50 mg PO DAILY Hold Instructions: Resume on 02/28/23. Discontinued isosorbide mononitrate 120 mg tablet extended release 24 hr 120 mg PO BID@ furosemide 40 mg tablet 40 mg PO QAM hydralazine 50 mg tablet 50 mg PO TID diclofenac sodium [Voltaren Arthritis Pain] 1 % gel 2 g topical QID PRN (Reason: Pain) Discharge Orders: Discharge Order (Routine); Ordered 02/21/23 Ordered By: Cooper Donnelly Referrals: Farrah Smith FNP [Nurse Practitioner] - 02/23/23 12:15 pm (Orthostasis, lightheadness, polypharmacy) Michelle Billy MD [Physician] - 03/02/23 2:00 pm Discharge Diet: Cardiac and Diabetic Discharge Activity: Limit activity as instructed and As per PT/OT instructions Patient Instructions: Hydralazine (By mouth), Isosorbide Mononitrate (By mouth) (Imdur, Imdur ER, Ismo), Cefdinir (By mouth), Acute Kidney Injury (GEN), Near Syncope (GEN), POTS (Postural Orthostatic Tachycardia Syndrome) (GEN), Pain Management Activity Restrictions/Additional Instructions: Please maintain strict orthostatic precautions as discussed. Right slowly from laying to sitting and sitting to standing. In case he gets lightheaded lie down immediately, do not try to fight through lightheadedness as it can result in loss of consciousness, fall and injury. Please note that your medications have been adjusted with decreasing doses of hydralazine, Imdur to try to help reduce chance of decreases in blood pressure with standing. Please follow-up with cardiology in office for reassessment of blood pressures and adjustment of medications, and have them recheck your orthostatics in office, as well as during her follow-up visit with your primary provider. Please have your primary provider also recheck your kidney function due to acute kidney injury. Your creatinine has been improving, creatinine down to 1.1 currently. Hold Lasix for now until your diarrhea is resolving Please follow-up regarding diarrhea. For now maintain lactose-free diet over the next 2 weeks. C. difficile and bacterial and parasite stool studies have been negative. Hold metformin for now as it can contribute to or cause diarrhea. Please work with your primary doctor regarding further assessment of persistent diarrhea. Use Imodium as needed in case of multiple bothersome stools. Complete antibiotic course for UTI. Urine culture is in progress, so far growing gram-negative rods, not yet identified. Please follow-up with your primary doctor for reassessment. Discharge Attestations Time Spent in Discharge Care*: greater than 30 min Status at Discharge: Cognitive status at discharge: cognitively intact, Behavioral status at discharge: cooperative, Quality Metrics Clinical Quality Measures [ No reported AMI, CVA or VTE this stay] Coding Level of Care Code 75701 Total time (in minutes) for Discharge: 55 Diagnoses Elevated troponin R77.8 Fall W19.XXXA Recurrent falls R29.6 Generalized weakness R53.1 CAD (coronary artery disease) I25.10 Associated angina: angina presence unspecified Coronary Disease-Associated Artery/Lesion type: [place] artery [place] vs. transplanted heart: [place] heart Dyspnea on exertion R06.00 Type 2 diabetes mellitus with diabetic polyneuropathy E11.42; Z79.4 Diabetes mellitus nursing home insulin use: with supervisor intermediates use Generalized muscle weakness M62.81 Chronic low back pain M54.5; G89.29 Back pain laterality: unspecified
== END 2023-02-21 17:21 | disposition home or self-care (01) ==
LOC: ER 18:14 → CSU 21:32 → MEDSURG 02-20 08:38
PROVIDERS: Internal Medicine; Admitting Provider Internal Medicine; Emergency Provider Nurse Practitioner; PCP Family Medicine; Visit Provider Internal Medicine
DX: R53.1 Weakness (principal); R77.8 Other specified abnormalities of plasma proteins; N19 Unspecified kidney failure; R06.00 Dyspnea, unspecified; M54.50 Low back pain, unspecified; R29.6 Repeated falls; R11.2 Nausea with vomiting, unspecified; R19.7 Diarrhea, unspecified; E11.42 Type 2 diabetes mellitus with diabetic polyneuropathy; I10 Essential (primary) hypertension; E78.5 Hyperlipidemia, unspecified; I25.10 Atherosclerotic heart disease of native coronary artery without angina pectoris; G47.33 Obstructive sleep apnea (adult) (pediatric); M17.0 Bilateral primary osteoarthritis of knee; E66.01 Morbid (severe) obesity due to excess calories; Z68.41 Body mass index [BMI] 40.0-44.9, adult; I34.0 Nonrheumatic mitral (valve) insufficiency; F17.200 Nicotine dependence, unspecified, uncomplicated; Z79.899 Other long term (current) drug therapy; Z79.4 Long term (current) use of insulin; Z79.84 Long term (current) use of oral hypoglycemic drugs; Z86.73 Personal history of transient ischemic attack (TIA), and cerebral infarction without residual deficits; Z95.5 Presence of coronary angioplasty implant and graft
CPT/HCPCS: 36415; 36416; 70450; 71045; 72125; 73502; 73562; 78014; 80048; 80053; 80162; 81001; 82274; 82550; 82553; 82607; 82962; 83036; 83630; 83735; 83880; 84100; 84443; 84484; 85025; 85378; 87077; 87086; 87186; 87493; 87506; 87635; 93005; 93306; 93970; 94640; 96361; 96365; 96367; 96372; 97110; 97116; 97161; 97530; 99285; A9540; A9567; G0378; J0696; J1650; J1815; J3475; J7030

== ENCOUNTER → 2023-02-23 11:59 | Outpatient (BNVA) | payer MEDICARE, MEDICAID, SELFPAY | PROVIDERS: PCP Family Medicine; Visit Provider Internal Medicine Cardiovascular Disease | DX: I13.0 Hypertensive heart and chronic kidney disease with heart failure and stage 1 through stage 4 chronic kidney disease, or unspecified chronic kidney disease (principal); N19 Unspecified kidney failure; I50.9 Heart failure, unspecified; E11.22 Type 2 diabetes mellitus with diabetic chronic kidney disease; Z79.4 Long term (current) use of insulin; R77.8 Other specified abnormalities of plasma proteins; I25.10 Atherosclerotic heart disease of native coronary artery without angina pectoris; R42 Dizziness and giddiness; F41.8 Other specified anxiety disorders; E11.59 Type 2 diabetes mellitus with other circulatory complications; G47.33 Obstructive sleep apnea (adult) (pediatric); E66.01 Morbid (severe) obesity due to excess calories; Z68.41 Body mass index [BMI] 40.0-44.9, adult; F17.200 Nicotine dependence, unspecified, uncomplicated | CPT/HCPCS: 99214 ==

== ENCOUNTER → 2023-02-24 12:54 | Outpatient (BNVA) | payer MEDICARE, MEDICAID, SELFPAY | PROVIDERS: PCP Family Medicine; Visit Provider Family Medicine | DX: N39.0 Urinary tract infection, site not specified (principal); N17.9 Acute kidney failure, unspecified; R31.9 Hematuria, unspecified; R29.6 Repeated falls; R53.1 Weakness | CPT/HCPCS: 80053; 81000; 85025 ==

== ENCOUNTER 2023-02-25 22:43 | Emergency (ER) | payer MEDICARE, MEDICAID, SELFPAY ==
--- NOTE | 2023-02-25 22:45 | ECG_ITS ---
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 Measurements Intervals Hasty Rate: 83 P: 50 WY: 161 QRS: 35 QRSD: 88 T: 46 QT: 331 QTc: 390 Interpretive Statements SINUS RHYTHM LOW QRS VOLTAGE IN PRECORDIAL LEADS [QRS DEFLECTION < 1.0 mV IN CHEST LEADS] Compared to ECG 02/19/2023 23:09:37 Low QRS voltage now present Electronically Signed On 02-25-2023 23:19:33 CDT by Rosey Phelps M.D. [email or web address]
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
[2023-02-25 22:46] VITALS: BP 154/78; PULSE 85; RESP 18; TEMP 37; O2SAT 93; BMI 44.2
--- NOTE | 2023-02-25 22:54 | XRR_ITS ---
PROCEDURE INFORMATION: Exam: XR Bilateral Hips Exam date and time: 02/25/2023 10:59 PM Age: 62 years old Clinical indication: Patient HX: C/O bilateral hip pain with weakness. Sustained a fall four days ago. TECHNIQUE: Imaging protocol: Radiologic exam of the bilateral hips. Views: 2 views of hips with pelvis when performed. COMPARISON: CR XR hip LT 2-3V wo/w pel* [id number] 02/21/2023 1:27 PM FINDINGS: Bones/joints: Mild degenerative changes. Soft tissues: The exam is somewhat limited by penetration and body habitus. No bilateral fracture or avascular necrosis. Other findings: Peripheral atherosclerosis. XR/XR hip BI 2V wo/w pel [id number] IMPRESSION: No acute findings
[2023-02-25 23:09] LABS: Basophils % 0.6 %; Eosinophils # 0.1 10^3/uL (0.0-0.8); Eosinophils % 1.4 %; Hematocrit 36.4 % (37.0-47.0); Hemoglobin 11.6 g/dL (11.5-15.3); Lymphocytes # 2.1 10^3/uL (0.8-4.8); Lymphocytes % 28.5 %; Mean Corpuscular HGB Conc 31.9 g/dL (30.0-36.0); Mean Corpuscular Volume 84.7 fl (81-99); Mean Platelet Volume 9.9 fL (7.4-10.4); Monocytes # 0.8 10^3/uL (0.2-0.9); Monocytes % 10.4 %; Neutrophils # 4.22 10^3/uL (1.8-7.7); Neutrophils % 58.5 %; Nucleated Red Blood Cells % 0 %; Platelet Count 257 10^3/cmm (130-400); Red Cell Distribution Width 16.8 % (12.1-15.1); White Blood Count 7.2 10^3/uL (4.0-10.0)
[2023-02-25 23:39] LABS: Alanine Aminotransferase 39 U/L (0-33); Albumin Level 3.5 g/dL (3.5-5.2); Alkaline Phosphatase 97 U/L (35-105); Anion Gap 13.6 (5-19); Aspartate Amino Transferase 43 U/L (0-32); Blood Urea Nitrogen 13 mg/dL (8-23); Calcium 8.9 mg/dL (8.5-10.5); Carbon Dioxide 25 mmol/L (22-29); Chloride 103 mmol/L (98-107); Digoxin 0.6 ng/mL (0.6-1.2); Globulin 2.6 g/dL (1.3-4.6); Glomerular Filtration Rate 73.2 mL/min (90-130); Glucose 172 mg/dL (65-115); Osmolality Calculated 288 mOsm/kg (285-295); Potassium 4.6 mmol/L (3.5-5.1); Sodium 137 mmol/L (136-145); Total Bilirubin 0.3 mg/dL (0.15-1.2); Total Protein 6.1 g/dL (6.6-8.7)
[2023-02-26] VITALS: BP 164/64; PULSE 82; RESP 18; O2SAT 92
[2023-02-26 00:50] LABS: Add Urine Culture? No; Add Urine Microscopic? YES; Bacteria Urine 2+ /hpf; Bilirubin Urine Neg (Negative); Blood Urine 2+ (Negative); Glucose Urine UA 1+ (Normal); Ketones Urine Negative (Negative); Leukocyte Esterase Urine 1+ (Negative); Nitrate Urine Negative (Negative); Protein Urine 1+ (Negative); RBC Urine 0-4 /hpf (0-2); Squamous Epithelial Cell Urine TOO NUMEROUS TO CNT /hpf (0-5); Urine Appearance Cloudy (CLEAR); Urine Color Yellow (Yellow); Urobilinogen Urine 1 mg/dL (Negative); pH Urine 7 (5-7)
== END 2023-02-26 02:05 | disposition home or self-care (01) ==
PROVIDERS: Family Medicine; Emergency Provider Emergency Medicine; PCP Family Medicine
DX: R53.1 Weakness (principal); M25.552 Pain in left hip; M25.551 Pain in right hip
CPT/HCPCS: 36415; 73521; 80053; 80162; 81001; 85025; 93005; 99285

== ENCOUNTER 2023-03-31 12:56 | Outpatient (CLI) | payer MEDICARE, MEDICAID, SELFPAY ==
--- NOTE | 2023-03-31 13:10 | MR_ITS ---
WS: [id number] MRI RIGHT KNEE HISTORY: CHRONIC BILATERAL KNEE PAIN COMPARISON: 02/22/2021 Anterior cruciate ligament: Intact. Posterior cruciate ligament: Intact. Medial collateral ligament: Intact. Posterior lateral corner structures: Intact. Medial menisci: Complex tear in the posterior horn of the medial meniscus. There is abnormal signal e xtending horizontally and vertically through the meniscus. Small caliber meniscus with progression of tear since the prior study. Mild extrusion of the anterior horn. Lateral meniscus: Intact. Normal signal, size and shape. Extensor mechanism: Normal distal quadriceps tendon. Mild patellar tendinopathy. Fluid and soft tissue: Small suprapatellar joint effusion. Mild soft tissue edema surrounding the kne e. Tiny Mckeon's cyst. Osseous and articular structures: Patellofemoral compartment: Moderate narrowing patellofemoral joint space with diffuse chondromalacia . Very slight lateral subluxation of the patella. No marrow edema. No progression. Medial compartment: Moderate narrowing of medial compartment with moderate diffuse loss of cartilage. Surface fraying of the cartilage. No marrow edema. Lateral compartment: Mild narrowing of the lateral compartment. Focal delamination seen on the prior study is not as well-visualized today. There is loss of cartilage along the weightbearing surface and mild joint space narrowing. No marrow edema. IMPRESSION: 1. Significant progression of complex tears involving the posterior horn medial meniscus. 2. Tricompartment mild to moderate internal derangement. Most significant abnormality in the medial c ompartment. Loss of cartilage and joint space narrowing. 3. No marrow edema or fracture.
--- NOTE | 2023-03-31 13:10 | MR_ITS ---
WS: [id number] MRI LEFT KNEE HISTORY: CHRONIC BILATERAL KNEE PAIN COMPARISON: Radiographs 02/21/2023 Anterior cruciate ligament: High-grade tear in the anterior cruciate ligament. The anterior fibers ar e torn. Posterior fibers are still intact. Posterior cruciate ligament: Intact. Medial collateral ligament: Intact. Posterior lateral corner structures: Intact. Medial menisci: Mild intrasubstance degeneration in the posterior horn. Lateral meniscus: Intact. Normal signal, size and shape. Extensor mechanism: Normal distal quadriceps tendon. Multifocal mild patellar tendinopathy. Fluid and soft tissue: Small joint effusion. No Mckeon's cyst. Osseous and articular structures: Patellofemoral compartment: Mild joint space narrowing. No marrow edema. Medial compartment: Mild joint space narrowing. Very mild fissuring of the cartilage. No fracture or marrow edema. Lateral compartment: Moderate narrowing of the lateral compartment. Moderate cartilage defect along t he weightbearing surface of the femoral condyle. Increased signal extends between the cortex of the b one and the cartilage suggesting delamination. IMPRESSION: 1. High-grade tear ACL. Anterior fibers are torn. The posterior fiber bundles are still intact but th inned. 2. No meniscal tear. 3. Moderate chondromalacia weightbearing surface lateral femoral condyle. Moderate narrowing of the l ateral compartment. 4. Mild internal derangement of the patellofemoral compartment and the medial compartment.
== END 2023-03-31 12:57 | disposition home or self-care (01) ==
PROVIDERS: PCP Family Medicine; Visit Provider Family Medicine
DX: S83.231A Complex tear of medial meniscus, current injury, right knee, initial encounter (principal); S83.512A Sprain of anterior cruciate ligament of left knee, initial encounter; X58.XXXA Exposure to other specified factors, initial encounter; M23.8X1 Other internal derangements of right knee; M23.8X2 Other internal derangements of left knee; M94.262 Chondromalacia, left knee
CPT/HCPCS: 73721

== ENCOUNTER 2023-04-13 20:52 | Emergency (ER) | payer MEDICARE, MEDICAID, SELFPAY ==
[2023-04-13 20:37] VITALS: BP 186/86; PULSE 85; RESP 18; TEMP 36.6; O2SAT 100; BMI 42.5
--- NOTE | 2023-04-13 21:05 | XRR_ITS ---
PROCEDURE INFORMATION: Exam: XR Chest Exam date and time: 04/13/2023 9:18 PM Age: 62 years old Clinical indication: Chest wall pain; Additional info: Chest pain TECHNIQUE: Imaging protocol: Radiologic exam of the chest. Views: 1 view. COMPARISON: CR XR chest 1V portable [id number] 02/19/2023 4:17 PM FINDINGS: Lungs: Calcified granuloma left lower lobe. No consolidative pulmonary infiltrates are noted. Pleural spaces: No pleural effusion. No pneumothorax. Heart/Mediastinum: No cardiomegaly. Bones/joints: Degenerative thoracic spine changes are noted. XR/XR chest 1V portable [id number] IMPRESSION: 1. No acute abnormality demonstrated. 2. Findings of old granulomatous disease are identified. 3. There is no interval change from the prior examination.
[2023-04-13 21:13] LABS: Basophils # 0.1 10^3/uL (0.0-0.1); Basophils % 0.7 %; Eosinophils # 0.3 10^3/uL (0.0-0.8); Eosinophils % 3.2 %; Hematocrit 37.3 % (36-47); Lymphocytes # 2.4 10^3/uL (0.8-4.8); Mean Corpuscular Hemoglobin 27.8 pg (27-33); Mean Corpuscular Volume 84.4 fl (85-98); Monocytes # 0.8 10^3/uL (0.2-0.9); Monocytes % 7.1 %; Neutrophils # 7.13 10^3/uL (1.8-7.7); Neutrophils % 66.7 %; Nucleated Red Blood Cells % 0 %; Platelet Count 395 10^3/cmm (157-399); Red Blood Count 4.42 10^6/uL (3.85-5.65); Red Cell Distribution Width 14.9 % (12.1-15.1); White Blood Count 10.68 10^3/uL (3.29-11.43)
[2023-04-13 21:25] LABS: Troponin(5th) Baseline 62 ng/L (0-10)
[2023-04-13 21:27] LABS: Alanine Aminotransferase 11 U/L (0-33); Albumin Level 4.3 g/dL (3.5-5.2); Alkaline Phosphatase 108 U/L (35-105); Anion Gap 18.8 (5-19); Aspartate Amino Transferase 8 U/L (0-32); Blood Urea Nitrogen 32 mg/dL (8-23); Calcium 10.2 mg/dL (8.5-10.5); Carbon Dioxide 22 mmol/L (22-29); Chloride 93 mmol/L (98-107); Globulin 2.9 g/dL (1.3-4.6); Glomerular Filtration Rate 45.8 mL/min (90-130); Osmolality Calculated 306 mOsm/kg (285-295); Potassium 4.8 mmol/L (3.5-5.1); Sodium 129 mmol/L (136-145); Total Bilirubin 0.2 mg/dL (0.15-1.2); Total Protein 7.2 g/dL (6.6-8.7)
[2023-04-13 21:30] LABS: Glucose 653 mg/dL (65-115)
--- NOTE | 2023-04-13 21:40 | W.ED.WEAKNES ---
Documented by User: Jada Lora MD 04/13/23 21:56 HPI - Weakness General: Chief complaint: Weakness Stated complaint: Chest Pain Time Seen by Provider: 04/13/23 22:02 Source: patient Mode of arrival: EMS Limitations: no limitations History of Present Illness: This 62-year-old female with a history of diabetes, coronary artery disease, CA and hypertension presents to the ER with intermittent chest pain that started 3 days ago. Pain starts spontaneously, lasts for about 2 to 3 hours and resolves spontaneously or with use of nitroglycerin spray. She is currently pain-free and states that the last time she had the pain was about 4 hours ago. Patient also reports feeling weak. She denies fever but has nausea and vomiting. She has vomited 3 times. She has a history of congestive heart failure and uses oxygen at bedtime. She has a significant history of coronary artery disease with placement of multiple stents. Associated symptoms: Reports chest pain, nausea and vomiting; Denies chills, dysuria, easy bruising or headache(s) Review of Systems Const: Denies: chills, body aches or change in appetite Eyes: Denies: change in vision or eye discharge ENMT: Denies: throat pain, dental pain or nasal discharge Card: Reports: chest pain; Denies: lightheadedness Resp: Reports: dyspnea GI: Reports: nausea and vomiting : Denies: dysuria Musc: Denies: neck pain or back pain Neuro: Denies: headache(s) or weakness in extremities Psych: Denies: depression Soham/Lymph: Denies: easy bruising All/Imm: Denies: urticaria, tongue swelling or facial swelling [facility] ED PFSH: Medical History Bilateral lower extremity edema CAD (coronary artery disease) Chronic cystitis Chronic low back pain Constipation CVA (cerebral vascular accident) DM type 2 (diabetes mellitus, type 2) Dyslipidemia GERD (gastroesophageal reflux disease) Gross hematuria HTN (hypertension) Long-term use of high-risk medication Migraine headache Morbid obesity Opioid contract exists BETH (obstructive sleep apnea) Osteoporosis Pulmonary embolism, bilateral RLS (restless legs syndrome) Small bowel strangulation Surgical History H/O heart artery stent History of partial surgical removal of colon Hx of total knee replacement S/P appendectomy S/P cholecystectomy S/P hysterectomy S/P tonsillectomy and adenoidectomy Family History Grandfather Cancer Family/Other Myocardial infarct MOTHER, FATHER, BROTHER, SISTER Hypertension Diabetes Mother , at age 66 CAD (coronary artery disease) Father , at age 74 CAD (coronary artery disease) Sister CAD (coronary artery disease) Brother CAD (coronary artery disease) Other Stroke Denies family history of Anesthesia complication Bleeding disorder Social History Smoking and tobacco status: current some day smoker Alcohol intake: never Substance/Drug Use: current Substance/Drug use frequency: other Other substance/drug use details: smokes medical marijauna occasionally at night to help her sleep Lives independently: Yes Marital status: Current occupational status: disabled Current gender identity: Female Special vik needs: No Physical Exam Const: COMMON NORMALS: no acute distress, patient oriented x3, no limitations and alert NUTRITIONAL APPEARANCE: obese HENMT: COMMON NORMALS: normocephalic HEAD & SCALP: normocephalic Eye: COMMON NORMALS: EOMs intact bilaterally Neck/C-Spine: COMMON NORMALS: full ROM and supple Chest: COMMONS NORMALS: normal inspection of the chest Resp: COMMON NORMALS: normal respiratory effort, No retractions, No use of accessory muscles and clear to auscultation bilaterally AUSCULTATION: clear to auscultation bilaterally Cardio: COMMON NORMALS: regular rate, regular rhythm and No murmurs present (Cardio) RATE: regular rate RHYTHM: regular rhythm GI: COMMON NORMALS: Normal to inspection, nondistended, normoactive bowel sounds present and non-tender : COMMON NORMALS: Yes no CVA tenderness BLADDER/KIDNEY EXAM: Yes no CVA tenderness Back/Pelvis: COMMON NORMALS: no CVA tenderness and no thoracic nor lumbar tenderness Extremity: GENERAL: Yes normal exam except as noted Neuro: COMMON NORMALS: patient oriented x3 and no focal motor deficits SENSORIUM/ORIENTATION: Yes alert Psych: COMMON NORMALS: mental status grossly normal and cooperative Course Vital Signs: Vital signs: Vital Signs Temperature 98 F 04/13/23 20:37 Pulse Rate 80 04/14/23 00:00 Respiratory Rate 15 04/14/23 00:00 Blood Pressure 173/80 04/14/23 00:00 Pulse Oximetry 100 04/14/23 00:00 Oxygen Delivery Me thod Nasal Cannula 04/14/23 00:00 Oxygen Flow Rate 2 04/14/23 00:00 MDM - Weakness Lab Data 04/13/23 19:42 04/13/23 19:42 Radiology Impressions Chest X-Ray 04/13/23 21:05 IMPRESSION: 1. No acute abnormality demonstrated. 2. Findings of old granulomatous disease are identified. 3. There is no interval change from the prior examination. Laboratory Results WBC 10.68 10^3/uL (3.29-11.43) 04/13/23 19:42 RBC 4.42 10^6/uL (3.85-5.65) 04/13/23 19:42 Hgb 12.30 g/dL (11.27-16.99) 04/13/23 19:42 Hct 37.3 % (36-47) 04/13/23 19:42 MCV 84.4 fl (85-98) L 04/13/23 19:42 MCH 27.8 pg (27-33) 04/13/23 19:42 MCHC 33.0 g/dL (30-55) 04/13/23 19:42 RDW 14.9 % (12.1-15.1) 04/13/23 19:42 Plt Count 395 10^3/cmm (157-399) 04/13/23 19:42 MPV 11.0 fL (7.4-10.4) H 04/13/23 19:42 Neut % (Auto) 66.7 % 04/13/23 19:42 Lymph % (Auto) 22.0 % 04/13/23 19:42 [place] % (Auto) 7.1 % 04/13/23 19:42 Eos % (Auto) 3.2 % 04/13/23 19:42 Baso % (Auto) 0.7 % 04/13/23 19:42 Neut # (Auto) 7.13 10^3/uL (1.8-7.7) 04/13/23 19:42 Lymph # (Auto) 2.4 10^3/uL (0.8-4.8) 04/13/23 19:42 [place] # (Auto) 0.8 10^3/uL (0.2-0.9) 04/13/23 19:42 Eos # (Auto) 0.3 10^3/uL (0.0-0.8) 04/13/23 19:42 Baso # (Auto) 0.1 10^3/uL (0.0-0.1) 04/13/23 19:42 Nucleated RBC % (auto) 0 % 04/13/23 19:42 Nucleated RBCs # 0.0 /100WBC 04/13/23 19:42 Sodium 129 mmol/L (136-145) L 04/13/23 19:42 Potassium 4.8 mmol/L (3.5-5.1) 04/13/23 19:42 Chloride 93 mmol/L (98-107) L 04/13/23 19:42 Carbon Dioxide 22 mmol/L (22-29) 04/13/23 19:42 Anion Gap 18.8 (5-19) 04/13/23 19:42 BUN 32 mg/dL (8-23) H 04/13/23 19:42 Creatinine 1.2 mg/dL (0.5-0.9) H 04/13/23 19:42 GFR Calculation 45.8 mL/min (90-130) L 04/13/23 19:42 Glucose 653 mg/dL (65-115) H* 04/13/23 19:42 POC Glucose 318 mg/dL (70-110) H 04/14/23 00:24 Calculated Osmolality 306 mOsm/kg (285-295) H 04/13/23 19:42 Calcium 10.2 mg/dL (8.5-10.5) 04/13/23 19:42 Total Bilirubin 0.2 mg/dL (0.15-1.2) 04/13/23 19:42 AST 8 U/L (0-32) 04/13/23 19:42 ALT 11 U/L (0-33) 04/13/23 19:42 Alkaline Phosphatase 108 U/L (35-105) H 04/13/23 19:42 Troponin T Baseline 62 ng/L (0-10) H 04/13/23 19:42 Troponin T 120 Minute 57.53 ng/L (0-10) H 04/13/23 21:34 Delta Troponin T -4.47 ABS# (0-10) L 04/13/23 21:34 Total Protein 7.2 g/dL (6.6-8.7) 04/13/23 19:42 Albumin 4.3 g/dL (3.5-5.2) 04/13/23 19:42 Globulin 2.9 g/dL (1.3-4.6) 04/13/23 19:42 Urine Color Yellow (Yellow) 04/13/23 20:55 Urine Appearance Cloudy (CLEAR) A 04/13/23 20:55 Urine pH 5 (5-7) 04/13/23 20:55 Ur Specific [place] 1.010 (1.005-1.030) 04/13/23 20:55 Urine Protein 1+ (Negative) H 04/13/23 20:55 Urine Glucose (UA) 4+ (Normal) H 04/13/23 20:55 Urine Ketones Negative (Negative) 04/13/23 20:55 Urine Blood 3+ (Negative) H 04/13/23 20:55 Urine Nitrate Negative (Negative) 04/13/23 20:55 Urine Bilirubin Neg (Negative) 04/13/23 20:55 Urine Urobilinogen Neg mg/dL (Negative) 04/13/23 20:55 Ur Leukocyte Esterase 1+ (Negative) H 04/13/23 20:55 Urine RBC 15-25 /hpf (0-2) H 04/13/23 20:55 Urine WBC 55-80 /hpf (0-5) H 04/13/23 20:55 Ur Squamous Epith Cells None /hpf (0-5) 04/13/23 20:55 Amorphous Sediment Not Reportable 04/13/23 20:55 Urine Bacteria 2+ /hpf (NONE) H 04/13/23 20:55 Discharge Plan Discharge Patient Disposition: Home Clinical Impression: Hyperglycemia, Chest pain, Acute cystitis Condition: Stable Prescriptions: New cephalexin 500 mg capsule 500 mg PO TID 7 Days Qty: 21 0RF No Action (DME) walker with seat and brakes See Rx Instructions .Route .MEDSUPPLY Qty: 1 0RF Rx Instructions: As directed hydrocodone-acetaminophen 10-325 mg tablet 1 tab PO Q6H PRN (Reason: pain) 30 Days Qty: 120 0RF (DME) InPen (for Humalog) Insulin Pen See Rx Instructions .Route Qty: 150 0RF Rx Instructions: qid to inject insulin (DME) Abdominal binder See Rx Instructions .Route .MEDSUPPLY Qty: 1 0RF Rx Instructions: As directed (DME) diabetic shoes and inserts See Rx Instructions .Route .MEDSUPPLY Qty: 1 0RF Rx Instructions: As directed (DME) lancets [BD Ultra Fine Lancets] 33 gauge misc See Rx Instructions .Route Qty: 100 1RF Rx Instructions: As directed (DME) insulin syringe-needle U-100 [BD Veo Insulin Syringe UF] 1/2 mL 31 gauge x 15/64 syringe See Rx Instructions .ROUTE .MEDSUPPLY Qty: 100 2RF Rx Instructions: As directed tamsulosin 0.4 mg capsule 0.4 mg PO BEDTIME@22 ropinirole 0.5 mg tablet 0.5 mg PO BEDTIME@22 Qty: 30 2RF (DME) oxygen tubing See Rx Instructions .Route .MEDSUPPLY Qty: 1 0RF [facility]: [facility] to RIGHT See Rx Instructions .Route .MEDSUPPLY Qty: 1 0RF Rx Instructions: As directed (DME) wheel-chair with foot rest See Rx Instructions .Route .MEDSUPPLY Qty: 1 0RF Rx Instructions: As directed by HOME metoprolol succinate 50 mg tablet extended release 24 hr 50 mg PO DAILY triamterene-hydrochlorothiazid 37.5-25 mg tablet 2 tab PO DAILY lancets [TRUEplus Lancets] 30 gauge misc See Rx Instructions .ROUTE .COMPLEX Qty: 100 1RF Dose Instruction: TO check blood sugar FOUR TIMES DAILY Rx Instructions: TO check blood sugar FOUR TIMES DAILY (DME) Accu-Chek Guide test strips Strip See Rx Instructions .Route Qty: 100 5RF Rx Instructions: As directed; to test 5 x daily (DME) Incontinence Supplies See Rx Instructions .Route .MEDSUPPLY Qty: 1 0RF Rx Instructions: As directed Trulicity 1.5 mg/0.5 mL pen injector 1.5 mg SUBCUT Q7D Qty: 2 1RF Rx Instructions: last filled 12/07/22 28d/s insulin lispro [Humalog KwikPen Insulin] 100 unit/mL insulin pen See Rx Instructions .ROUTE .COMPLEX Qty: 45 0RF Dose Instruction: inject 29 units SUBCUTANEOUSLY THREE TIMES DAILY BEFORE meals Rx Instructions: inject 29 units SUBCUTANEOUSLY THREE TIMES DAILY BEFORE meals digoxin 125 mcg (0.125 mg) tablet 125 mcg PO DAILY@12 calcium carbonate [Tums] 200 mg calcium (500 mg) Tablet,Chewable 1,000 mg PO DAILY PRN (Reason: Stomach Upset) nitroglycerin [Nitrostat] 0.4 mg Tablet, Sublingual 0.4 mg SUBLINGUAL Q5M PRN (Reason: Chest Pain) Rx Instructions: do not exceed 3 doses per episode atorvastatin 40 mg tablet 40 mg PO DAILY@07 Flovent Diskus 50 mcg/actuation blister with device 2 inh inhalation BID PRN (Reason: unknown) carvedilol 25 mg tablet 25 mg PO BID@ Rx Instructions: must administer with a meal/food potassium chloride 10 mEq tablet extended release 10 meq PO DAILY@07 metformin 1,000 mg tablet 1,000 mg PO DAILY Hold Instructions: Resume on 02/27/23. buspirone 15 mg tablet 15 mg PO BID bupropion HCl 200 mg tablet sustained-release 12 hr 200 mg PO Q12H cholecalciferol (vitamin D3) 1,250 mcg (50,000 unit) capsule 50,000 unit PO Q7D Rx Instructions: Takes on Fridays Brilinta 90 mg tablet 90 mg PO BID@ insulin glargine [Lantus Solostar U-100 Insulin] 100 unit/mL (3 mL) insulin pen 32 unit SUBCUT QAM Acidophilus 1 cap PO BID losartan 50 mg tablet 50 mg PO DAILY Hold Instructions: Resume on 02/28/23. hydralazine 25 mg Tablet 12.5 mg PO BID@ Qty: 90 0RF isosorbide mononitrate 30 mg tablet extended release 24 hr 30 mg PO DAILY Qty: 90 0RF aspirin 81 mg Tablet,Delayed Release (Dr/Ec) 81 mg PO DAILY@07 Discharge Orders: Discharge ED (Routine); Ordered 04/14/23 Ordered By: Da Barragan Referrals: Michelle Billy MD [Primary Care Provider] - 1-3 days Discharge Diet: Advance as tolerated Discharge Activity: Resume usual activity Patient Instructions: Urinary Tract Infection in Women (ED), Diabetic Hyperglycemia (ED) Coding Level of Care Code ED Special Education Paraprofessional for Chg Fwd Documented by User: Da Barragan MD 04/14/23 01:23 HPI - Weakness General: Chief complaint: Weakness Stated complaint: Chest Pain Time Seen by Provider: 04/13/23 22:02 PFSH ED PFSH: Medical History Bilateral lower extremity edema CAD (coronary artery disease) Chronic cystitis Chronic low back pain Constipation CVA (cerebral vascular accident) DM type 2 (diabetes mellitus, type 2) Dyslipidemia GERD (gastroesophageal reflux disease) Gross hematuria HTN (hypertension) Long-term use of high-risk medication Migraine headache Morbid obesity Opioid contract exists BETH (obstructive sleep apnea) Osteoporosis Pulmonary embolism, bilateral RLS (restless legs syndrome) Small bowel strangulation Surgical History H/O heart artery stent History of partial surgical removal of colon Hx of total knee replacement S/P appendectomy S/P cholecystectomy S/P hysterectomy S/P tonsillectomy and adenoidectomy Family History Grandfather Cancer Family/Other Myocardial infarct MOTHER, FATHER, BROTHER, SISTER Hypertension Diabetes Mother , at age 66 CAD (coronary artery disease) Father , at age 74 CAD (coronary artery disease) Sister CAD (coronary artery disease) Brother CAD (coronary artery disease) Other Stroke Denies family history of Anesthesia complication Bleeding disorder Social History Smoking and tobacco status: current some day smoker Alcohol intake: never Substance/Drug Use: current Substance/Drug use frequency: other Other substance/drug use details: smokes medical marijauna occasionally at night to help her sleep Lives independently: Yes Marital status: Current occupational status: disabled Current gender identity: Female Special vik needs: No Course Vital Signs: Vital signs: Vital Signs Temperature 98 F 04/13/23 20:37 Pulse Rate 80 04/14/23 00:00 Respiratory Rate 15 04/14/23 00:00 Blood Pressure 173/80 04/14/23 00:00 Pulse Oximetry 100 04/14/23 00:00 Oxygen Delivery Me thod Nasal Cannula 04/14/23 00:00 Oxygen Flow Rate 2 04/14/23 00:00 MDM - Weakness Medical Decision Making Patient presents here with weakness she does have a UTI also hyperglycemic she feels much improved here after her glucose is improved and after fluids she is not septic she is stable for discharge we will prescribe antibiotics she is follow-up PCP and return if worsening. Medical Records I reviewed the patient's medical records. Lab Data I reviewed the patient's lab results. 04/13/23 19:42 04/13/23 19:42 Radiology Impressions Chest X-Ray 04/13/23 21:05 IMPRESSION: 1. No acute abnormality demonstrated. 2. Findings of old granulomatous disease are identified. 3. There is no interval change from the prior examination. Laboratory Results WBC 10.68 10^3/uL (3.29-11.43) 04/13/23 19:42 RBC 4.42 10^6/uL (3.85-5.65) 04/13/23 19:42 Hgb 12.30 g/dL (11.27-16.99) 04/13/23 19:42 Hct 37.3 % (36-47) 04/13/23 19:42 MCV 84.4 fl (85-98) L 04/13/23 19:42 MCH 27.8 pg (27-33) 04/13/23 19:42 MCHC 33.0 g/dL (30-55) 04/13/23 19:42 RDW 14.9 % (12.1-15.1) 04/13/23 19:42 Plt Count 395 10^3/cmm (157-399) 04/13/23 19:42 MPV 11.0 fL (7.4-10.4) H 04/13/23 19:42 Neut % (Auto) 66.7 % 04/13/23 19:42 Lymph % (Auto) 22.0 % 04/13/23 19:42 [place] % (Auto) 7.1 % 04/13/23 19:42 Eos % (Auto) 3.2 % 04/13/23 19:42 Baso % (Auto) 0.7 % 04/13/23 19:42 Neut # (Auto) 7.13 10^3/uL (1.8-7.7) 04/13/23 19:42 Lymph # (Auto) 2.4 10^3/uL (0.8-4.8) 04/13/23 19:42 [place] # (Auto) 0.8 10^3/uL (0.2-0.9) 04/13/23 19:42 Eos # (Auto) 0.3 10^3/uL (0.0-0.8) 04/13/23 19:42 Baso # (Auto) 0.1 10^3/uL (0.0-0.1) 04/13/23 19:42 Nucleated RBC % (auto) 0 % 04/13/23 19:42 Nucleated RBCs # 0.0 /100WBC 04/13/23 19:42 Sodium 129 mmol/L (136-145) L 04/13/23 19:42 Potassium 4.8 mmol/L (3.5-5.1) 04/13/23 19:42 Chloride 93 mmol/L (98-107) L 04/13/23 19:42 Carbon Dioxide 22 mmol/L (22-29) 04/13/23 19:42 Anion Gap 18.8 (5-19) 04/13/23 19:42 BUN 32 mg/dL (8-23) H 04/13/23 19:42 Creatinine 1.2 mg/dL (0.5-0.9) H 04/13/23 19:42 GFR Calculation 45.8 mL/min (90-130) L 04/13/23 19:42 Glucose 653 mg/dL (65-115) H* 04/13/23 19:42 POC Glucose 318 mg/dL (70-110) H 04/14/23 00:24 Calculated Osmolality 306 mOsm/kg (285-295) H 04/13/23 19:42 Calcium 10.2 mg/dL (8.5-10.5) 04/13/23 19:42 Total Bilirubin 0.2 mg/dL (0.15-1.2) 04/13/23 19:42 AST 8 U/L (0-32) 04/13/23 19:42 ALT 11 U/L (0-33) 04/13/23 19:42 Alkaline Phosphatase 108 U/L (35-105) H 04/13/23 19:42 Troponin T Baseline 62 ng/L (0-10) H 04/13/23 19:42 Troponin T 120 Minute 57.53 ng/L (0-10) H 04/13/23 21:34 Delta Troponin T -4.47 ABS# (0-10) L 04/13/23 21:34 Total Protein 7.2 g/dL (6.6-8.7) 04/13/23 19:42 Albumin 4.3 g/dL (3.5-5.2) 04/13/23 19:42 Globulin 2.9 g/dL (1.3-4.6) 04/13/23 19:42 Urine Color Yellow (Yellow) 04/13/23 20:55 Urine Appearance Cloudy (CLEAR) A 04/13/23 20:55 Urine pH 5 (5-7) 04/13/23 20:55 Ur Specific [place] 1.010 (1.005-1.030) 04/13/23 20:55 Urine Protein 1+ (Negative) H 04/13/23 20:55 Urine Glucose (UA) 4+ (Normal) H 04/13/23 20:55 Urine Ketones Negative (Negative) 04/13/23 20:55 Urine Blood 3+ (Negative) H 04/13/23 20:55 Urine Nitrate Negative (Negative) 04/13/23 20:55 Urine Bilirubin Neg (Negative) 04/13/23 20:55 Urine Urobilinogen Neg mg/dL (Negative) 04/13/23 20:55 Ur Leukocyte Esterase 1+ (Negative) H 04/13/23 20:55 Urine RBC 15-25 /hpf (0-2) H 04/13/23 20:55 Urine WBC 55-80 /hpf (0-5) H 04/13/23 20:55 Ur Squamous Epith Cells None /hpf (0-5) 04/13/23 20:55 Amorphous Sediment Not Reportable 04/13/23 20:55 Urine Bacteria 2+ /hpf (NONE) H 04/13/23 20:55 All radiology interpretation(s) finalized by discharge Discharge Plan Discharge Patient Disposition: Home Clinical Impression: Hyperglycemia, Chest pain, Acute cystitis Condition: Stable Prescriptions: New cephalexin 500 mg capsule 500 mg PO TID 7 Days Qty: 21 0RF No Action (DME) walker with seat and brakes See Rx Instructions .Route .MEDSUPPLY Qty: 1 0RF Rx Instructions: As directed hydrocodone-acetaminophen 10-325 mg tablet 1 tab PO Q6H PRN (Reason: pain) 30 Days Qty: 120 0RF (DME) InPen (for Humalog) Insulin Pen See Rx Instructions .Route Qty: 150 0RF Rx Instructions: qid to inject insulin (DME) Abdominal binder See Rx Instructions .Route .MEDSUPPLY Qty: 1 0RF Rx Instructions: As directed (DME) diabetic shoes and inserts See Rx Instructions .Route .MEDSUPPLY Qty: 1 0RF Rx Instructions: As directed (DME) lancets [BD Ultra Fine Lancets] 33 gauge misc See Rx Instructions .Route Qty: 100 1RF Rx Instructions: As directed (DME) insulin syringe-needle U-100 [BD Veo Insulin Syringe UF] 1/2 mL 31 gauge x 15/64 syringe See Rx Instructions .ROUTE .MEDSUPPLY Qty: 100 2RF Rx Instructions: As directed tamsulosin 0.4 mg capsule 0.4 mg PO BEDTIME@22 ropinirole 0.5 mg tablet 0.5 mg PO BEDTIME@22 Qty: 30 2RF (DME) oxygen tubing See Rx Instructions .Route .MEDSUPPLY Qty: 1 0RF Rx Instructions: [employer] (DME) ASO to RIGHT See Rx Instructions .Route .MEDSUPPLY Qty: 1 0RF Rx Instructions: As directed (DME) wheel-chair with foot rest See Rx Instructions .Route .MEDSUPPLY Qty: 1 0RF Rx Instructions: As directed by HOME metoprolol succinate 50 mg tablet extended release 24 hr 50 mg PO DAILY triamterene-hydrochlorothiazid 37.5-25 mg tablet 2 tab PO DAILY lancets [TRUEplus Lancets] 30 gauge misc See Rx Instructions .ROUTE .COMPLEX Qty: 100 1RF Dose Instruction: TO check blood sugar FOUR TIMES DAILY Rx Instructions: TO check blood sugar FOUR TIMES DAILY (DME) Accu-Chek Guide test strips Strip See Rx Instructions .Route Qty: 100 5RF Rx Instructions: As directed; to test 5 x daily (DME) Incontinence Supplies See Rx Instructions .Route .MEDSUPPLY Qty: 1 0RF Rx Instructions: As directed Trulicity 1.5 mg/0.5 mL pen injector 1.5 mg SUBCUT Q7D Qty: 2 1RF Rx Instructions: last filled 12/07/22 28d/s insulin lispro [Humalog KwikPen Insulin] 100 unit/mL insulin pen See Rx Instructions .ROUTE .COMPLEX Qty: 45 0RF Dose Instruction: inject 29 units SUBCUTANEOUSLY THREE TIMES DAILY BEFORE meals Rx Instructions: inject 29 units SUBCUTANEOUSLY THREE TIMES DAILY BEFORE meals digoxin 125 mcg (0.125 mg) tablet 125 mcg PO DAILY@12 calcium carbonate [Tums] 200 mg calcium (500 mg) Tablet,Chewable 1,000 mg PO DAILY PRN (Reason: Stomach Upset) nitroglycerin [Nitrostat] 0.4 mg Tablet, Sublingual 0.4 mg SUBLINGUAL Q5M PRN (Reason: Chest Pain) Rx Instructions: do not exceed 3 doses per episode atorvastatin 40 mg tablet 40 mg PO DAILY@07 Flovent Diskus 50 mcg/actuation blister with device 2 inh inhalation BID PRN (Reason: unknown) carvedilol 25 mg tablet 25 mg PO BID@ Rx Instructions: must administer with a meal/food potassium chloride 10 mEq tablet extended release 10 meq PO DAILY@07 metformin 1,000 mg tablet 1,000 mg PO DAILY Hold Instructions: Resume on 02/27/23. buspirone 15 mg tablet 15 mg PO BID bupropion HCl 200 mg tablet sustained-release 12 hr 200 mg PO Q12H cholecalciferol (vitamin D3) 1,250 mcg (50,000 unit) capsule 50,000 unit PO Q7D Rx Instructions: Takes on Fridays Brilinta 90 mg tablet 90 mg PO BID@ insulin glargine [Lantus Solostar U-100 Insulin] 100 unit/mL (3 mL) insulin pen 32 unit SUBCUT QAM Acidophilus 1 cap PO BID losartan 50 mg tablet 50 mg PO DAILY Hold Instructions: Resume on 02/28/23. hydralazine 25 mg Tablet 12.5 mg PO BID@ Qty: 90 0RF isosorbide mononitrate 30 mg tablet extended release 24 hr 30 mg PO DAILY Qty: 90 0RF aspirin 81 mg Tablet,Delayed Release (Dr/Ec) 81 mg PO DAILY@07 Discharge Orders: Discharge ED (Routine); Ordered 04/14/23 Ordered By: Da Barragan Referrals: Michelle Billy MD [Primary Care Provider] - 1-3 days Discharge Diet: Advance as tolerated Discharge Activity: Resume usual activity Patient Instructions: Urinary Tract Infection in Women (ED), Diabetic Hyperglycemia (ED) Coding Level of Care Code ED Special Education Paraprofessional for Romie Everett
[2023-04-13 21:56] LABS: Troponin 5 2HR 57.53 ng/L (0-10); Troponin 5 2HR Delta -4.47 ABS# (0-10)
[2023-04-13] MEDS: sodium chloride 0.9% 1,000 ML 999 ML IV ×2 (22:18→23:40)
[2023-04-13 22:19] LABS: Add Urine Microscopic? YES; Bacteria Urine 2+ /hpf; Bilirubin Urine Neg (Negative); Blood Urine 3+ (Negative); Glucose Urine UA 4+ (Normal); Ketones Urine Negative (Negative); Leukocyte Esterase Urine 1+ (Negative); Nitrate Urine Negative (Negative); Protein Urine 1+ (Negative); RBC Urine 15-25 /hpf (0-2); Urine Appearance Cloudy (CLEAR); Urine Color Yellow (Yellow); Urobilinogen Urine Neg (Negative); WBC Urine 55-80 /hpf (0-5); pH Urine 5 (5-7)
[2023-04-13 22:20] LABS: Add Urine Culture? Yes
[2023-04-13] MEDS: insulin regular-human 100 units/1 mL 14 UNIT IVP (22:20)
[2023-04-13 22:28] LABS: Glucose Point of Care 579 mg/dL (70-110)
[2023-04-13 23:04] LABS: Glucose Point of Care 433 mg/dL (70-110)
[2023-04-13] MEDS: cefTRIAXone 1,000 MG in sodium chloride 0.9% (plus) 50 ML 100 MG IV (23:07)
[2023-04-13 23:21] VITALS: BP 165/94
[2023-04-13 23:30] VITALS: BP 172/94; PULSE 79; RESP 19; O2SAT 100
[2023-04-13 23:32] LABS: Glucose Point of Care 402 mg/dL (70-110)
[2023-04-13] MEDS: insulin regular-human 100 units/1 mL 5 UNIT IVP (23:40)
[2023-04-14] VITALS: BP 173/80; PULSE 80; RESP 15; O2SAT 100
[2023-04-14 00:27] LABS: Glucose Point of Care 318 mg/dL (70-110)
== END 2023-04-14 01:34 | disposition home or self-care (01) ==
PROVIDERS: Family Medicine; Emergency Provider Emergency Medicine; PCP Family Medicine
DX: E11.65 Type 2 diabetes mellitus with hyperglycemia (principal); R07.9 Chest pain, unspecified; N30.00 Acute cystitis without hematuria; Z79.82 Long term (current) use of aspirin; Z79.85 Long-term (current) use of injectable non-insulin antidiabetic drugs; Z79.84 Long term (current) use of oral hypoglycemic drugs; Z79.4 Long term (current) use of insulin; F17.210 Nicotine dependence, cigarettes, uncomplicated; I25.10 Atherosclerotic heart disease of native coronary artery without angina pectoris; Z86.73 Personal history of transient ischemic attack (TIA), and cerebral infarction without residual deficits; E78.5 Hyperlipidemia, unspecified; I10 Essential (primary) hypertension
CPT/HCPCS: 36415; 36416; 71045; 80053; 81001; 82962; 84484; 85025; 87077; 87086; 87186; 96365; 96366; 96375; 96376; 99284; J0696; J1815; J7030

== ENCOUNTER 2023-04-14 11:29 | Emergency (ER) | payer MEDICARE, MEDICAID, SELFPAY ==
[2023-04-14 11:30] VITALS: PULSE 93; RESP 16; TEMP 36.7; O2SAT 96; BMI 42.5
--- NOTE | 2023-04-14 11:31 | XR_ITS ---
WS: [id number] EXAMINATION: XR hip RT 2-3V wo/w pel* [id number] ORDER DATE: 04/14/2023 11:31 AM COMPARISON: None HISTORY: pain FINDINGS: There is minor medial joint space narrowing. Periarticular osteophytes and generalized degenerative changes noted. There is no evidence of acute fracture, dislocation, or joint effusion. Ligamentous an d/or intra-articular cartilaginous injury cannot be excluded by radiography. Prominent atheroscleroti c vascular calcifications present. IMPRESSION: ARTICULAR AND PERIARTICULAR DEGENERATIVE CHANGES OF OSTEOARTHRITIS. IF THERE IS ANY CLINICAL SUSPICIO N OR PROLONGED SYMPTOMS SUGGESTIVE OF LIGAMENTOUS OR CARTILAGINOUS INJURY OTHER IMAGING MAY BE WARRAN MICKEY.
[2023-04-14 11:39] VITALS: BP 152/59; PULSE 95; RESP 20; TEMP 37.1; O2SAT 97
--- NOTE | 2023-04-14 11:41 | ED_ITS ---
HPI - Extremity Problem General: Chief complaint: Extremity Injury, Lower Stated complaint: rt hip pain Time Seen by Provider: 04/14/23 11:31 Source: patient Mode of arrival: EMS History of Present Illness: 62-year-old female lives with family at home no one is with her at the time she went to get out of bed to a wheelchair which she uses regularly and she fell she has severe right hip pain she was unable to move or bear weight EMS was called she was brought into the emergency room. She denies striking her head denies loss of consciousness. Denies any other injuries. MD Complaint: joint pain Onset (ago): minute(s) Location: right (Hip) Quality: sharp Radiation: none Relieving factors: nothing Exacerbating factors: nothing Associated symptoms: Deny arthralgias, chest pain, fever(s), myalgias, rash or short of breath Review of Systems Const: Denies: fever(s), chills, fatigue or malaise Card: Denies: chest pain or palpitations Resp: Denies: dyspnea, productive cough or non-productive cough GI: Denies: abdominal pain, nausea, vomiting, hematemesis, coffee ground emesis, diarrhea, constipation, bloating, hematochezia or melena : Denies: flank pain, difficulty voiding, dysuria, urinary frequency or urinary urgency Skin/Breast: Denies: rash PFSH ED PFSH: Medical History Bilateral lower extremity edema CAD (coronary artery disease) Chronic cystitis Chronic low back pain Constipation CVA (cerebral vascular accident) DM type 2 (diabetes mellitus, type 2) Dyslipidemia GERD (gastroesophageal reflux disease) Gross hematuria HTN (hypertension) Long-term use of high-risk medication Migraine headache Morbid obesity Opioid contract exists BETH (obstructive sleep apnea) Osteoporosis Pulmonary embolism, bilateral RLS (restless legs syndrome) Small bowel strangulation Surgical History H/O heart artery stent History of partial surgical removal of colon Hx of total knee replacement S/P appendectomy S/P cholecystectomy S/P hysterectomy S/P tonsillectomy and adenoidectomy Family History Grandfather Cancer Family/Other Myocardial infarct MOTHER, FATHER, BROTHER, SISTER Hypertension Diabetes Mother , at age 66 CAD (coronary artery disease) Father , at age 74 CAD (coronary artery disease) Sister CAD (coronary artery disease) Brother CAD (coronary artery disease) Other Stroke Denies family history of Anesthesia complication Bleeding disorder Social History Smoking and tobacco status: current some day smoker Alcohol intake: never Substance/Drug Use: current Substance/Drug use frequency: other Other substance/drug use details: smokes medical marijauna occasionally at night to h elp her sleep Lives independently: Yes Marital status: Current occupational status: disabled Current gender identity: Female Special vik needs: No Physical Exam Const: COMMON NORMALS: no acute distress GENERAL APPEARANCE: cooperative and comfortable ORIENTATION/CONSCIOUSNESS: Yes awake, Yes oriented to person, Yes oriented to place and Yes oriented to time HENMT: COMMON NORMALS: normocephalic, atraumatic and hearing grossly normal bilaterally HEAD & SCALP: normocephalic and atraumatic Resp: COMMON NORMALS: normal respiratory effort, No retractions, No use of accessory muscles and clear to auscultation bilaterally AUSCULTATION: clear to auscultation bilaterally Cardio: COMMON NORMALS: regular rate, regular rhythm and No murmurs present (Cardio) RATE: regular rate RHYTHM: regular rhythm GI: COMMON NORMALS: Soft to palpation and No hepatosplenomegaly present AUSCULTATION: Yes normoactive bowel sounds PALPATION: Yes Soft to palpation, No Tenderness to palpation present (GI), No Guarding due to palpation present (GI) and Yes No hepatosplenomegaly present Extremity: COMMON NORMALS: normal to inspection, capillary refill normal, no clubbing, cyanosis or edema, no calf tenderness and no pedal edema Neuro: SENSORIUM/ORIENTATION: Yes oriented to person, Yes oriented to place and Yes oriented to time Skin: COMMON NORMALS: no rashes or lesions noted GENERAL SKIN EXAM: no rashes or lesions noted Course Vital Signs: Vital signs: Vital Signs Temperature 98.7 F 04/14/23 11:39 Pulse Rate 87 04/14/23 14:30 Respiratory Rate 20 H 04/14/23 14:30 Blood Pressure 131/57 04/14/23 14:30 Pulse Oximetry 97 04/14/23 14:30 Oxygen Delivery Me thod Room Air 04/14/23 14:30 MDM - Extremity (Nontraumatic) Medical Decision Making X-ray of the hip unremarkable. Patient able to stand pivot and transfer to bedside commode at her baseline. She states she does feel better we will discharge patient home return if has further problems. Medical Records I reviewed the patient's medical records. Lab Data I reviewed the patient's lab results. All radiology interpretation(s) finalized by discharge Discharge Plan Discharge Patient Disposition: Home Clinical Impression: Acute hip pain, Fall Condition: Stable Prescriptions: No Action (DME) walker with seat and brakes See Rx Instructions .Route .MEDSUPPLY Qty: 1 0RF Rx Instructions: As directed hydrocodone-acetaminophen 10-325 mg tablet 1 tab PO Q6H PRN (Reason: pain) 30 Days Qty: 120 0RF (DME) InPen (for Humalog) Insulin Pen See Rx Instructions .Route Qty: 150 0RF Rx Instructions: qid to inject insulin (DME) Abdominal binder See Rx Instructions .Route .MEDSUPPLY Qty: 1 0RF Rx Instructions: As directed (DME) diabetic shoes and inserts See Rx Instructions .Route .MEDSUPPLY Qty: 1 0RF Rx Instructions: As directed (DME) lancets [BD Ultra Fine Lancets] 33 gauge misc See Rx Instructions .Route Qty: 100 1RF Rx Instructions: As directed (DME) insulin syringe-needle U-100 [BD Veo Insulin Syringe UF] 1/2 mL 31 gauge x 15/64 syringe See Rx Instructions .ROUTE .MEDSUPPLY Qty: 100 2RF Rx Instructions: As directed tamsulosin 0.4 mg capsule 0.4 mg PO BEDTIME@22 ropinirole 0.5 mg tablet 0.5 mg PO BEDTIME@22 Qty: 30 2RF (DME) oxygen tubing See Rx Instructions .Route .MEDSUPPLY Qty: 1 0RF Rx Instructions: [facility] ASO to RIGHT See Rx Instructions .Route .MEDSUPPLY Qty: 1 0RF Rx Instructions: As directed (DME) wheel-chair with foot rest See Rx Instructions .Route .MEDSUPPLY Qty: 1 0RF Rx Instructions: As directed by HOME metoprolol succinate 50 mg tablet extended release 24 hr 50 mg PO DAILY triamterene-hydrochlorothiazid 37.5-25 mg tablet 2 tab PO DAILY lancets [TRUEplus Lancets] 30 gauge misc See Rx Instructions .ROUTE .COMPLEX Qty: 100 1RF Dose Instruction: TO check blood sugar FOUR TIMES DAILY Rx Instructions: TO check blood sugar FOUR TIMES DAILY (DME) Accu-Chek Guide test strips Strip See Rx Instructions .Route Qty: 100 5RF Rx Instructions: As directed; to test 5 x daily (DME) Incontinence Supplies See Rx Instructions .Route .MEDSUPPLY Qty: 1 0RF Rx Instructions: As directed Trulicity 1.5 mg/0.5 mL pen injector 1.5 mg SUBCUT Q7D Qty: 2 1RF Rx Instructions: last filled 12/07/22 28d/s insulin lispro [Humalog KwikPen Insulin] 100 unit/mL insulin pen See Rx Instructions .ROUTE .COMPLEX Qty: 45 0RF Dose Instruction: inject 29 units SUBCUTANEOUSLY THREE TIMES DAILY BEFORE meals Rx Instructions: inject 29 units SUBCUTANEOUSLY THREE TIMES DAILY BEFORE meals digoxin 125 mcg (0.125 mg) tablet 125 mcg PO DAILY@12 calcium carbonate [Tums] 200 mg calcium (500 mg) Tablet,Chewable 1,000 mg PO DAILY PRN (Reason: Stomach Upset) nitroglycerin [Nitrostat] 0.4 mg Tablet, Sublingual 0.4 mg SUBLINGUAL Q5M PRN (Reason: Chest Pain) Rx Instructions: do not exceed 3 doses per episode atorvastatin 40 mg tablet 40 mg PO DAILY@07 Flovent Diskus 50 mcg/actuation blister with device 2 inh inhalation BID PRN (Reason: unknown) carvedilol 25 mg tablet 25 mg PO BID@ Rx Instructions: must administer with a meal/food potassium chloride 10 mEq tablet extended release 10 meq PO DAILY@07 metformin 1,000 mg tablet 1,000 mg PO DAILY Hold Instructions: Resume on 02/27/23. buspirone 15 mg tablet 15 mg PO BID bupropion HCl 200 mg tablet sustained-release 12 hr 200 mg PO Q12H cholecalciferol (vitamin D3) 1,250 mcg (50,000 unit) capsule 50,000 unit PO Q7D Rx Instructions: Takes on Fridays Brilinta 90 mg tablet 90 mg PO BID@ insulin glargine [Lantus Solostar U-100 Insulin] 100 unit/mL (3 mL) insulin pen 32 unit SUBCUT QAM Acidophilus 1 cap PO BID losartan 50 mg tablet 50 mg PO DAILY Hold Instructions: Resume on 02/28/23. hydralazine 25 mg Tablet 12.5 mg PO BID@07,17 Qty: 90 0RF isosorbide mononitrate 30 mg tablet extended release 24 hr 30 mg PO DAILY Qty: 90 0RF cephalexin 500 mg capsule 500 mg PO TID 7 Days Qty: 21 0RF aspirin 81 mg Tablet,Delayed Release (Dr/Ec) 81 mg PO DAILY@07 Discharge Orders: Discharge ED (Routine); Ordered 04/14/23 Ordered By: James Sharma Referrals: Michelle Billy MD [Primary Care Provider] - Patient Instructions: Opioid Safety, Pain Management Coding Level of Care Code ED Handkerchief Folder for Romie Everett
[2023-04-14] MEDS: ondansetron 2 mg/ML SDV 2 mL 4 MG IVP (11:56)
[2023-04-14] MEDS: morphine 4 mg/mL SDV 1 mL IVP (11:56)
[2023-04-14] MEDS: diphenhydrAMINE 50 mg/mL SDV 1mL 25 MG IVP (11:56)
[2023-04-14 12:30] VITALS: BP 166/81; PULSE 90; RESP 18; O2SAT 90
[2023-04-14 12:59] VITALS: BP 166/81; PULSE 91; RESP 18; O2SAT 97
[2023-04-14 14:30] VITALS: BP 131/57; PULSE 87; RESP 20; O2SAT 97
--- NOTE | 2023-04-14 14:46 | PC.NURSE ---
patients sister arrived at 1446 to steel pickler patient, patient transferred to w/c and sister wheeled patient to car. Staff offered help to car, patient refused help witnessed by security.
== END 2023-04-14 14:46 | disposition home or self-care (01) ==
PROVIDERS: Emergency Provider Family Medicine; PCP Family Medicine
DX: M25.551 Pain in right hip (principal); Z79.85 Long-term (current) use of injectable non-insulin antidiabetic drugs; Z79.4 Long term (current) use of insulin; Z79.82 Long term (current) use of aspirin; Z79.84 Long term (current) use of oral hypoglycemic drugs; F17.210 Nicotine dependence, cigarettes, uncomplicated; I25.10 Atherosclerotic heart disease of native coronary artery without angina pectoris; Z86.73 Personal history of transient ischemic attack (TIA), and cerebral infarction without residual deficits; E11.9 Type 2 diabetes mellitus without complications; E78.5 Hyperlipidemia, unspecified; I10 Essential (primary) hypertension
CPT/HCPCS: 73502; 96374; 96375; 99284; J1200; J2270; J2405

== ENCOUNTER → 2023-05-08 15:00 | Outpatient (BNVA) | payer MEDICARE, MEDICAID, SELFPAY | PROVIDERS: PCP Family Medicine; Visit Provider Specialist | DX: M25.561 Pain in right knee (principal); M25.562 Pain in left knee; G89.29 Other chronic pain; R26.2 Difficulty in walking, not elsewhere classified | CPT/HCPCS: 73560; 99204 ==

== ENCOUNTER → 2023-05-25 14:23 | Outpatient (BNVA) | payer MEDICARE, MEDICAID, SELFPAY | PROVIDERS: PCP Family Medicine; Visit Provider Internal Medicine Cardiovascular Disease | DX: I25.10 Atherosclerotic heart disease of native coronary artery without angina pectoris (principal); I10 Essential (primary) hypertension; E78.5 Hyperlipidemia, unspecified; G47.33 Obstructive sleep apnea (adult) (pediatric); E11.9 Type 2 diabetes mellitus without complications; Z79.4 Long term (current) use of insulin; E66.01 Morbid (severe) obesity due to excess calories; Z68.38 Body mass index [BMI] 38.0-38.9, adult; F17.200 Nicotine dependence, unspecified, uncomplicated | CPT/HCPCS: 93005; 99214 ==

== ENCOUNTER → 2023-06-29 11:11 | Outpatient (BNVA) | payer MEDICARE, MEDICAID, SELFPAY | PROVIDERS: PCP Family Medicine; Visit Provider Psychiatry & Neurology Neurology | DX: R29.898 Other symptoms and signs involving the musculoskeletal system (principal); R53.1 Weakness; R55 Syncope and collapse; M54.2 Cervicalgia; M54.9 Dorsalgia, unspecified; R26.2 Difficulty in walking, not elsewhere classified; M25.562 Pain in left knee; G89.29 Other chronic pain; S83.512A Sprain of anterior cruciate ligament of left knee, initial encounter; Y99.9 Unspecified external cause status | CPT/HCPCS: 99203 ==

== ENCOUNTER → 2023-08-02 07:57 | Outpatient (BNVA) | payer MEDICARE, MEDICAID, SELFPAY | PROVIDERS: PCP Family Medicine; Referring Provider Psychiatry & Neurology Neurology; Visit Provider Specialist | DX: M25.562 Pain in left knee (principal); G89.29 Other chronic pain | CPT/HCPCS: 99215 ==

== ENCOUNTER 2023-08-04 12:21 | Outpatient (CLI) | payer MEDICARE, MEDICAID, SELFPAY ==
--- NOTE | 2023-08-04 13:00 | MR_ITS ---
WS: [id number] MRI CERVICAL SPINE NONCONTRAST HISTORY: R26.2 - Difficulty in walking, not elsewhere classified COMPARISON: None available. Technique: Multiplanar, multisequence noncontrast imaging of the cervical spine. Quality of this examination is significantly degraded. Patient was unable to remain still for this ex amination and had a spontaneous cough throughout. It would be difficult to exclude signal abnormality within the cord. Disc spaces are narrowed and nicolas iccated. Lateral ventricles are dilated. Mild dilatation of the fourth ventricle. C2-C3: Facet arthropathy. C3-C4: Central disc protrusion effacing CSF. There is moderate central and mild foraminal stenosis. C4-C5: Diffuse disc bulging with a central disc protrusion, osteophytic ridging and facet arthritis. Moderate central and bilateral foraminal stenosis. C5-C6: Central disc protrusion. Disc osteophyte complex in the foramina. Moderate to severe central w ith moderate foraminal stenosis. C6-C7: Osteophytic ridging and disc bulging. Moderate to severe central and bilateral foraminal steno sis. C7-T1: Mild disc bulging. Paraspinal soft tissue are normal. IMPRESSION: 1. Quality of this examination is significantly degraded by motion artifact. Patient was spontaneous ly coughing during the exam. 2. Multilevel facet joint arthritis, osteophytes and disc disease. 3. C5-6 and C6-7: Moderate to severe central and bilateral foraminal stenosis due to disc and osteop hyte disease. 4. C3-4: Moderate central and mild bilateral foraminal stenosis. 5. C4-5: Moderate central and bilateral foraminal stenosis. 6. Ventriculomegaly. Lateral ventricles on the sagittal image appear dilated. MRI brain may be benef iciary to evaluate etiology.
--- NOTE | 2023-08-04 13:45 | MR_ITS ---
WS: [id number] MRI LUMBAR SPINE NONCONTRAST HISTORY: R26.2 - Difficulty in walking, not elsewhere classified COMPARISON: 08/17/2018 TECHNIQUE: Sagittal and axial multisequence imaging is submitted. Study is significantly limited by motion throughout the entire exam. Mild increase in thoracic kyphosis. Increase in the lumbar lordosis. 5 lumbar type vertebral bodies are nonrib-bearing. S1 is lumbarized. This numbering pattern will be used for this examination. L4 anterolisthesis by 6.5 mm. Anterolisthesis as increased since the prior examination. No fractures identified. Conus terminates normally at L1-2 disc level. L1-L2: Normal. L2-L3: Bilateral facet arthritis with ligamentum flavum hypertrophy. No high-grade stenosis. L3-L4: Ligamentum flavum and facet arthritis. Mild encroachment upon the central canal. Stenosis appe ars to have increased since the prior study. Stenosis difficult to quantify due to motion. L4-L5: Diffuse annular disc bulging with marked ligamentum flavum and facet arthritis. There does natalia ear to be high-grade central and probable foraminal stenosis. Foraminal stenosis is difficult to curtis tify. Stenosis has increased since the prior study. L5-S1: Diffuse annular disc bulging with a central disc protrusion contacting the traversing S1 nerve roots. Similar to the prior study. Severe bilateral facet joint arthritis with foraminal stenosis. IMPRESSION: 1. Quality of this examination is significantly compromised by motion artifact. The exact extent of stenosis is difficult to quantify. 2. Increase in lumbar lordosis since the prior study. 3. L4 anterolisthesis by 6.5 mm is new since the prior study. 4. L4-5: High-grade central and probable foraminal stenosis. New since the prior study. 5. L3-4: Least mild central stenosis at L3-4. Foraminal stenosis difficult to quantify. 6. L5-S1: Severe bilateral facet joint arthritis with foraminal stenosis. Central disc protrusion co ntacting the S1 nerve roots.
== END 2023-08-04 12:22 | disposition home or self-care (01) ==
PROVIDERS: PCP Family Medicine; Visit Provider Psychiatry & Neurology Neurology
DX: R26.2 Difficulty in walking, not elsewhere classified (principal); M47.812 Spondylosis without myelopathy or radiculopathy, cervical region; M47.817 Spondylosis without myelopathy or radiculopathy, lumbosacral region; M50.21 Other cervical disc displacement, high cervical region; M48.02 Spinal stenosis, cervical region; M48.07 Spinal stenosis, lumbosacral region; M51.27 Other intervertebral disc displacement, lumbosacral region; M40.56 Lordosis, unspecified, lumbar region; M25.78 Osteophyte, vertebrae; R29.6 Repeated falls; R53.1 Weakness; R55 Syncope and collapse; M25.562 Pain in left knee
CPT/HCPCS: 72141; 72148

== ENCOUNTER → 2023-08-18 11:06 | Outpatient (BNVA) | payer MEDICARE, MEDICAID, SELFPAY | PROVIDERS: PCP Family Medicine; Visit Provider Internal Medicine Cardiovascular Disease | DX: I25.10 Atherosclerotic heart disease of native coronary artery without angina pectoris (principal); R00.0 Tachycardia, unspecified; R06.00 Dyspnea, unspecified; E11.59 Type 2 diabetes mellitus with other circulatory complications; Z98.890 Other specified postprocedural states; E78.5 Hyperlipidemia, unspecified; I11.0 Hypertensive heart disease with heart failure; I50.9 Heart failure, unspecified; Z95.5 Presence of coronary angioplasty implant and graft; I26.99 Other pulmonary embolism without acute cor pulmonale; F17.200 Nicotine dependence, unspecified, uncomplicated; Z79.4 Long term (current) use of insulin | CPT/HCPCS: 99214 ==

== ENCOUNTER → 2023-09-05 08:25 | Outpatient (BNVA) | payer OTHER, MEDICAID, SELFPAY | PROVIDERS: PCP Family Medicine; Referring Provider Psychiatry & Neurology Neurology; Visit Provider Orthopaedic Surgery | DX: M48.062 Spinal stenosis, lumbar region with neurogenic claudication; Z01.812 Encounter for preprocedural laboratory examination; Z79.899 Other long term (current) drug therapy | CPT/HCPCS: 36415; 72100; 80053; 81001; 85025; 87086; 99204 ==

== ENCOUNTER → 2023-09-07 10:06 | Outpatient (BNVA) | payer OTHER, MEDICAID, SELFPAY | PROVIDERS: PCP Family Medicine; Visit Provider Family Medicine | DX: R73.03 Prediabetes (principal) | CPT/HCPCS: 83036 ==

== ENCOUNTER → 2023-09-14 10:09 | Outpatient (BNVA) | payer OTHER, MEDICAID, SELFPAY | PROVIDERS: PCP Family Medicine; Visit Provider Psychiatry & Neurology Neurology | DX: R29.898 Other symptoms and signs involving the musculoskeletal system (principal); R26.2 Difficulty in walking, not elsewhere classified; R55 Syncope and collapse; G89.29 Other chronic pain; M54.50 Low back pain, unspecified; S83.512A Sprain of anterior cruciate ligament of left knee, initial encounter; X58.XXXA Exposure to other specified factors, initial encounter | CPT/HCPCS: 99212 ==

== ENCOUNTER 2023-09-15 06:23 | Day surgery (SDC) | payer OTHER, MEDICAID, SELFPAY ==
[2023-09-15] VITALS (9 sets, daily range): BP systolic 127–148; BP diastolic 50–78; PULSE 61–66; RESP 15–16; TEMP 36.1–36.6; O2SAT 93–100; BMI 41.5
--- NOTE | 2023-09-15 | XR_ITS ---
WS: [id number] C-ARM RADIOGRAPHS LUMBAR SPINE; 3 IMAGES HISTORY: OR PICS COMPARISON: None available. Intraoperative imaging during spine decompression. Decompression marker centered over the LEFT L4-5 l evel. IMPRESSION: Intraoperative imaging during spinal decompression.
--- NOTE | 2023-09-15 06:28 | W.PM.OPSUD ---
Surgery/Procedure H&P Update DATE OF PROCEDURE: September 15, 2023 DATE H&P PERFORMED: 09/07/23 H&P UPDATE INFORMATION: I have reviewed H&P completed within last 30 days, I have examined patient prior to procedure and No changes to prior documentation PLANNED PROCEDURE: Operation Date: 09/15/23 07:00 Proposed Procedures p Lumbar Spine Decompression Lumbar Decompression/Standing on the left side(Not Applicable) - Horacio Gonzalez, DO
[2023-09-15] MEDS: sodium chloride 0.9% 1,000 ML 30 ML IV (07:26)
[2023-09-15 07:27] LABS: Glucose Point of Care 258 mg/dL (70-110)
[2023-09-15] MEDS: ceFAZolin 2,000 MG in sodium chloride 0.9% (plus) 50 ML 100 MG IV (07:29)
--- NOTE | 2023-09-15 08:01 | P.ANESASSM_ITS ---
Pre-Anesthetic Assessment Height/Weight: Height 1.65 m Weight 113.398 kg O2 Del Method Room Air 09/15/23 06:36 Preop Diagnosis: Lumbar stenosis with neurogenic claudication Operation Date: 09/15/23 07:00 Proposed Procedures p Lumbar Spine Decompression Lumbar Decompression/Standing on the left side(Not Applicable) - Horacio Gonzalez DO Familial anesthetic complications: None Was Beta Brigida taken within 24 hours: Yes Was Clonidine taken within 24 hours: N/A Last intake: Intake Last Liquid Date 09/14/23 Last Liquid Time 12:00 Last Solid Date 09/12/23 Last Solid Time 18:00 Social No alcohol and No tobacco Exam alert, oriented x 3, clear to auscultation bilaterally and regular rate & rhythm Airway Submandibular: within normal limits Cervical ROM: within normal limits Mallampati: Class II Comments: Comments: No teeth Pulmonary Exertional Dyspnea and Sleep Apnea Hx of PE CV/HEM Coronary Artery Disease and Hypertension Cath 08/2020 Conclusions ? 1. There is mild coronary artery disease with two vessel disease. ? 2. Second Obtuse Marginal Branch Segment was treated with Drug Eluting Stent and Balloon. ? 3. Indication for left heart cath: Worsening of chest pain but shortness of breath suspicious for angina despite of maximization of medicine.IFRIFR: After equalizing the distal and proximal pressure of IFR wire proximal to the lesion, mid OM-2 lesion was crossed with IFR wire.? IFR but after waiting for couple of minute was noted to be 0.87 which is significant.? We proceeded with PCI using drug-eluting stent.. EKG 10/14/21 ? Interpretive Statements SINUS RHYTHM NONSPECIFIC T-WAVE ABNORMALITY Compared to ECG 12/13/2019 18:03:47 No significant changes h [email or web address] Hematuria Chronic cystitis Hepatic Fatty liver GI Gastroesophageal Reflux Disease Dysphagia Incarcerated hernia CT 10/14/21 CT/CT abdomen pelvis w con* [id number] IMPRESSION: ? 1.? RIGHT periumbilical lower abdominal wall hernia with herniated and obstructed loop of enhancing fluid-filled dilated small bowel with surrounding inflammatory stranding and edema. Hernia mouth appears relatively narrow. No free air or pneumatosis. Recommend surgical consultation. 2.? New small bowel anastomosis in the LEFT lower quadrant with a slightly prominent fluid-filled loop of small bowel at the anastomosis. No evidence of high-grade obstruction. 3.? No other changes compared to previous. 4.? Hepatomegaly with diffuse fatty infiltration. 5.? Normal caliber abdominal aorta. 6.? Sigmoid diverticulosis. ? Metabolic Diabetes Mellitus and Morbid Obesity Musc/skel Lower Back Pain Neuropsych Anxiety, Cerebrovascular Accident (Right sided weakness ), Depression, Headache and Transient Ischemic Attack RLS Anesthetic Plan ASA status: 3 (60 year old with incarcerated hernia, BETH, morbid obesity, HTN, CAD, anxiety, DM and hx CVA. ) Anesthesia: General Risk of > 500 ml blood loss (7ml/kg in children): No Medications/Allergies Home Medications Medication Instructions Recorded Confirmed Last Taken Type walker with seat and brakes #1 ea 03/26/20 09/14/23 08/08/20 22:30 Rx insulin admin supplies (InPen (for #150 ea 10/04/21 09/14/23 Unknown Rx Humalog) subcutaneous) aspirin 81 mg tablet,delayed 81 mg PO DAILY@10/14/21 09/15/23 09/10/23 History release diabetic shoes and inserts #1 ea 05/11/22 09/14/23 Unknown Rx insulin syringe-needle U-100 07/11 #100 ea 09/23/22 09/14/23 Unknown Rx mL 31 gauge x 15/64 (BD Veo Insulin Syringe Ultra-Fine) lancets 33 gauge (BD Ultra Fine #100 ea 09/23/22 09/14/23 Unknown Rx Lancets) blood sugar diagnostic (Accu-Chek #100 ea 12/09/22 09/14/23 Unknown Rx Guide test strips) tamsulosin 0.4 mg capsule 0.4 mg PO BEDTIME@01/06/23 09/15/23 09/14/23 History atorvastatin 40 mg tablet 40 mg PO DAILY@01/18/23 09/15/23 09/14/23 History buspirone 15 mg tablet 15 mg PO BID 01/18/23 09/15/23 09/14/23 History calcium carbonate 200 mg calcium 1,000 mg PO DAILY PRN Stomach Upset 01/18/23 09/15/23 09/14/23 History (500 mg) chewable tablet (Tums) cholecalciferol (vitamin D3) 1,250 50,000 unit PO Q7D 01/18/23 09/15/23 09/14/23 History mcg (50,000 unit) capsule digoxin 125 mcg (0.125 mg) tablet 125 mcg PO DAILY@12 01/18/23 09/15/23 09/14/23 History metformin 1,000 mg tablet 1,000 mg PO DAILY 01/18/23 09/15/23 09/14/23 History nitroglycerin 0.4 mg sublingual 0.4 mg sublingual Q5M PRN Chest 01/18/23 09/14/23 Unknown History tablet (Nitrostat) Pain potassium chloride 10 mEq 10 meq PO DAILY@01/18/23 09/15/23 09/14/23 History tablet,extended release ticagrelor 90 mg tablet (Brilinta) 90 mg PO BID@01/18/23 09/15/23 09/14/23 History ASO to RIGHT #1 ea 01/20/23 09/14/23 Unknown Rx wheel-chair with foot rest #1 ea 01/20/23 09/14/23 Unknown Rx oxygen tubing #1 ea 01/24/23 09/14/23 Unknown Rx ropinirole 0.5 mg tablet 0.5 mg PO BEDTIME@22 #30 tabs 01/24/23 09/15/23 09/14/23 Rx Incontinence Supplies #1 ea 01/27/23 09/14/23 Unknown Rx isosorbide mononitrate 30 mg 30 mg PO DAILY #90 tabs 02/21/23 09/15/23 09/14/23 Rx tablet,extended release 24 hr levothyroxine 25 mcg capsule 25 mcg PO DAILY 05/08/23 09/15/23 09/14/23 History sertraline 25 mg tablet (Zoloft) 25 mg PO BEDTIME 05/08/23 09/15/23 09/14/23 History triamterene 37.5 2 tab PO DAILY #30 tabs 08/09/23 09/15/23 09/14/23 Rx mg-hydrochlorothiazide 25 mg tablet hydrocodone 10 mg-acetaminophen 1 tab PO Q6H PRN Pain, Moderate 09/07/23 09/14/23 Unknown History 325 mg tablet insulin glargine 100 unit/mL (3 32 unit SUBCUT QAM 09/07/23 09/15/23 09/13/23 History mL) subcutaneous pen (Lantus Solostar U-100 Insulin) ipratropium 0.5 mg-albuterol 3 mg 3 ml inhalation QID PRN Wheezing 09/07/23 09/14/23 Unknown History (2.5 mg base)/3 mL nebulization soln ondansetron HCl 4 mg tablet 4 mg PO BID PRN Nausea 09/07/23 09/15/23 09/14/23 History pantoprazole 40 mg tablet,delayed 40 mg PO DAILY 09/07/23 09/15/23 09/14/23 History release semaglutide 0.25 mg or 0.5 mg (2 0.5 mg SUBCUT Q7D 09/07/23 09/15/23 09/08/23 History mg/3 mL) subcutaneous pen injector (Ozempic) trazodone 50 mg tablet 50 mg PO BEDTIME 09/07/23 09/15/23 09/14/23 History bupropion HCl 200 mg tablet,12 hr 200 mg PO BID 09/14/23 09/15/23 09/14/23 History sustained-release insulin lispro 100 unit/mL 29 sliding scale dose SUBCUT TID 09/14/23 09/15/23 09/14/23 History subcutaneous pen (Humalog KwikPen (U-100) Insulin) metoprolol succinate 50 mg 75 mg PO DAILY 09/15/23 09/15/23 09/15/23 History tablet,extended release 24 hr Allergies Allergy/AdvReac Type Severity Reaction Status Date / Time hyoscyamine Allergy Severe ADR-Itching Verified 09/14/23 11:01 ciprofloxacin [From Cipro] Allergy hives Verified 09/14/23 11:01 citalopram Allergy effects Verified 09/14/23 11:01 speach and memory clopidogrel [From Plavix] Allergy unk Verified 09/14/23 11:01 coconut Allergy Unknown Verified 09/14/23 11:01 ibuprofen Allergy RASH/ Verified 09/14/23 11:01 SWELLING morphine Allergy ITCHING Verified 09/14/23 11:01 famotidine AdvReac Mild itching Verified 09/14/23 11:01 esomeprazole [From Nexium] AdvReac Unknown Verified 09/14/23 11:01 cefdinir Allergy unknown Uncoded 09/14/23 11:01 Current Medications Generic Name Dose Route Start Last Admin Trade Name Darius PRN Reason Stop Dose Admin Sodium Chloride 1,000 mls @ 30 mls/hr 09/15/23 06:30 09/15/23 07:26 Sodium Chloride 0.9% IV 09/16/23 06:29 30 mls/hr .Q24H SAÚL Administration PFSH Anesthesia Medical History Small bowel strangulation Dyslipidemia Chronic cystitis Gross hematuria Osteoporosis Morbid obesity Constipation Migraine headache Bilateral lower extremity edema RLS (restless legs syndrome) GERD (gastroesophageal reflux disease) BETH (obstructive sleep apnea) CVA (cerebral vascular accident) CAD (coronary artery disease) HTN (hypertension) DM type 2 (diabetes mellitus, type 2) Pulmonary embolism, bilateral Opioid contract exists Long-term use of high-risk medication Chronic low back pain Surgical History H/O heart artery stent S/P hysterectomy S/P tonsillectomy and adenoidectomy S/P appendectomy S/P cholecystectomy Hx of total knee replacement History of partial surgical removal of colon Family History Grandfather Cancer Family/Other Myocardial infarct MOTHER, FATHER, BROTHER, SISTER Hypertension Diabetes Mother , at age 66 CAD (coronary artery disease) Father , at age 74 CAD (coronary artery disease) Sister CAD (coronary artery disease) Brother CAD (coronary artery disease) Other Stroke Denies family history of Anesthesia complication Bleeding disorder Social History Smoking and tobacco/nicotine status: current some day tobacco/nicotine user Alcohol intake: never Substance/Drug Use: current Substance/Drug use frequency: other Other substance/drug use details: smokes medical marijauna occasionally at night to help her sleep Lives independently: Yes Marital status: Current occupational status: disabled Current gender identity: Female Special vik needs: No Data Anesthesia 09/15/23 07:11 Cardiac Studies: 2 Echocardiogram 02/20/23
[2023-09-15 08:02] LABS: Blood Urea Nitrogen 37 mg/dL (8-23); Calcium 9.4 mg/dL (8.5-10.5); Carbon Dioxide 26 mmol/L (22-29); Chloride 96 mmol/L (98-107); Glucose 247 mg/dL (65-115); Osmolality Calculated 293 mOsm/kg (285-295); Sodium 133 mmol/L (136-145)
[2023-09-15 08:05] LABS: Anion Gap 16.4 (5-19); Potassium 5.4 mmol/L (3.5-5.1)
[2023-09-15] MEDS: lidocaine-epi 1% 20 mL INJ 10 ML INJECTION (08:16)
--- NOTE | 2023-09-15 08:59 | PM.OP ---
Operative Report Date of procedure: September 15, 2023 Pre-op diagnosis: Lumbar stenosis with neurogenic claudication Post-op diagnosis: same Procedure done: 1. L3-4 laminectomy with partial facetectomy 2. L4-5 laminectomy with partial facetectomy Surgeon: Horacio Gonzalez DO Estimated blood loss (mL): 10 Procedure: 1. L3-4 laminectomy with partial facetectomy 2. L4-5 laminectomy with partial facetectomy Patient is brought to the operative suite. After undergoing anesthesia they are placed in the prone position. All areas of impingement are well padded. Patient is then prepped and draped in the normal sterile fashion. A skin incision is made over the L3/4 level. This is confirmed under c-arm guidance. A series of dilators are passed and the tubular retractor is docked on the L3 lamina. A bovie is used to clear the soft tissue off the lamina and the L 3/4 facet joint. A high speed hipolito is then used to perform the laminectomy and take down the medial aspect of the L 3/4 facet joint. A kerrison rongeure was then used to take down the remaining lamina and smooth the edge of the laminectomy up to the point where the ligamentum flavum attaches. Attention was then brought to the medial aspect of the facet joint. The remaining medial aspect of the superior and inferior aspect of the facet joint were taken down with the kerrison from the pedicle of L3 to L 4. The facet joint had significant hypertrophy. Attention was then brought to the Ligamentum Flavum. The ligament was taken down from the lamina of L3 to L4 and out medially to the remaining facet joint. The ligament was thick. The dura was then exposed. The dura was in good repair. The L3 nerve was then traced with a curette out the L3/4 foramen and found to be adequately decompressed. The L4 nerve was traced with a curette around the L4 pedicle. The lateral recess was opened with a kerrison helping to further decompress the L4 nerve. Wound is then irrigated copiously with saline and surgiflo is used to stop any bleeding. The tubular retractor is removed and the A skin incision is made over the L4/5 level. This is confirmed under c-arm guidance. A series of dilators are passed and the tubular retractor is docked on the L4 lamina. A bovie is used to clear the soft tissue off the lamina and the L 4/5 facet joint. A high speed hipolito is then used to perform the laminectomy and take down the medial aspect of the L 4/5 facet joint. A kerrison rongeure was then used to take down the remaining lamina and smooth the edge of the laminectomy up to the point where the ligamentum flavum attaches. Attention was then brought to the medial aspect of the facet joint. The remaining medial aspect of the superior and inferior aspect of the facet joint were taken down with the kerrison from the pedicle of L4 to L 5. The facet joint had significant hypertrophy. Attention was then brought to the Ligamentum Flavum. The ligament was taken down from the lamina of L4 to L5 and out medially to the remaining facet joint. The ligament was thick. The dura was then exposed. The dura was in good repair. The L4 nerve was then traced with a curette out the L4/5 foramen and found to be adequately decompressed. The L5 nerve was traced with a curette around the L5 pedicle. The lateral recess was opened with a kerrison helping to further decompress the L5 nerve. Wound is then irrigated copiously with saline and surgiflo is used to stop any bleeding. The tubular retractor is removed and the wound is closed with vicryl and monocryl suture. Glue is then used to protect the wound. A sterile dressing is then placed. Patient was then placed in the supine position and transferred to the PACU in stable condition.
--- NOTE | 2023-09-15 14:22 | ANE.PACU2 ---
Inpatient post-anesthesia follow up: Airway intact: Yes Vital signs: Temperature 97.8 F Pulse Rate 66 Respiratory Rate 16 Blood Pressure 148/78 Pulse Oximetry 93 Oxygen Delivery Me thod Room Air Oxygen Flow Rate 5 Fraction of Inspir ed Oxygen Hydration adequate: Yes Nausea and vomiting: No Pain level: 2 Mental status: Baseline
[2023-09-18 05:29] LABS: Glucose Point of Care 228 mg/dL (70-110)
== END 2023-09-15 10:28 | disposition home or self-care (01) ==
PROVIDERS: Student in an Organized Health Care Education/Training Program; PCP Internal Medicine; Visit Provider Orthopaedic Surgery
PROC: (CPT 63005; principal; 2023-09-15 07:00)
DX: M48.062 Spinal stenosis, lumbar region with neurogenic claudication (principal); Z86.711 Personal history of pulmonary embolism; I25.10 Atherosclerotic heart disease of native coronary artery without angina pectoris; I10 Essential (primary) hypertension; K21.9 Gastro-esophageal reflux disease without esophagitis; G47.33 Obstructive sleep apnea (adult) (pediatric); E11.9 Type 2 diabetes mellitus without complications; Z86.73 Personal history of transient ischemic attack (TIA), and cerebral infarction without residual deficits
CPT/HCPCS: 63047; 63048; 36415; 36416; 72100; 76000; 80048; 82962; J0131; J0690; J1100; J1200; J2371; J2405; J2704; J3010; J3490; J7030

== ENCOUNTER 2023-09-21 14:40 | Outpatient (CLI) | payer OTHER, MEDICAID, SELFPAY ==
--- NOTE | 2023-09-21 15:15 | USCV_ITS ---
Watson Bridges Age: 62 Gender: F : 1960 Exam Date: 09/21/2023 14:47 Ordering Phys: Keanu Easton MD Technologist: Exam Location: [facility] [place] Indication: tia Risk Factors: Previous Vascular Surgery: Right Brachial BP: / Left Brachial BP: / Right Left Velocity (cm/s) Spectral Plaque Velocity (cm/s) Spectral Plaque Syst/Diast Broadening Syst/Diast Broadening 97.00/ 10.20 Prox CCA 70.50 / 17.90 89.30/ 6.60 Mid CCA 67.90 / 14.00 97.00/ 19.30 Hetro Distal CCA 46.10 / 13.00 Hetro 41.30/ 8.90 Hetro Prox ICA 56.00 / 10.00 Hetro 43.00/ 10.00 Mid ICA 60.70 / 11.10 45.00/ 11.00 Distal ICA 49.50 / 11.10 106.10 ECA 84.70 0.40 ICA/CCA 1.30 Antegrade Vertebral Antegrade 43.00/ 10.00 cm/s 37.30/ 9.30 cm/s Bi Subclavian Bi 62.80 73.00 FINDINGS Comparison: none available. No significant elevation of systolic or diastolic velocities. Waveforms are normal. No significant amount of calcified plaque or intimal thickening identified. CONCLUSIONS Normal carotid doppler ultrasound. Dr. Shanthi Figueroa DO (Electronically Signed) Final Date: 21 September 2023 16:11 S
== END 2023-09-21 14:41 | disposition home or self-care (01) ==
LOC: RAD 14:40
PROVIDERS: PCP Internal Medicine; Visit Provider Psychiatry & Neurology Neurology
DX: R55 Syncope and collapse (principal)
CPT/HCPCS: 93880

== ENCOUNTER → 2023-09-28 07:46 | Outpatient (BNVA) | payer OTHER, MEDICAID, SELFPAY | PROVIDERS: PCP Internal Medicine; Visit Provider Orthopaedic Surgery | DX: Z98.890 Other specified postprocedural states (principal) | CPT/HCPCS: 99024 ==

== ENCOUNTER 2023-10-09 13:29 | Outpatient (CLI) | payer OTHER, MEDICAID, SELFPAY ==
--- NOTE | 2023-10-09 13:45 | MR_ITS ---
WS: [id number] MRI BRAIN WITHOUT CONTRAST HISTORY: R26.2 - Difficulty in walking, not elsewhere classified COMPARISON: None available. TECHNIQUE: Diffusion imaging, multiplanar T1, T2 and FLAIR imaging obtained. No evidence for acute infarct or hemorrhage. Hirsch-white matter differentiation is normal. Very mild atrophy and small vessel ischemic disease. No prior infarct. Very mild increased CSF surrou nding the hippocampal formations. Ventricles and extra-axial spaces are normal. No inferior displacement of cerebellar tonsils. The sella turcica and pituitary gland are unremarkabl e. Dural venous sinuses and [place] demonstrate no abnormality on this unenhanced studies. Paranasal sinuses: Clear. Mastoid air cells: Normal. Calvarium and scalp: Intact. IMPRESSION: 1. No acute infarct or hemorrhage. 2. Very mild atrophy and small vessel ischemic disease. 3. Minimal hippocampal formation atrophy.
== END 2023-10-09 13:30 | disposition home or self-care (01) ==
LOC: RAD 13:30
PROVIDERS: PCP Internal Medicine; Visit Provider Psychiatry & Neurology Neurology
DX: G93.89 Other specified disorders of brain (principal); R26.2 Difficulty in walking, not elsewhere classified; R29.898 Other symptoms and signs involving the musculoskeletal system; G31.9 Degenerative disease of nervous system, unspecified; I67.89 Other cerebrovascular disease
CPT/HCPCS: 70551

== ENCOUNTER → 2023-10-26 09:17 | Outpatient (BNVA) | payer OTHER, MEDICAID, SELFPAY | PROVIDERS: PCP Internal Medicine; Visit Provider Psychiatry & Neurology Neurology | DX: R55 Syncope and collapse (principal) | CPT/HCPCS: 95812; 95819 ==

== ENCOUNTER → 2023-10-31 08:36 | Outpatient (BNVA) | payer OTHER, MEDICAID, SELFPAY | PROVIDERS: PCP Internal Medicine; Visit Provider Orthopaedic Surgery | DX: Z98.890 Other specified postprocedural states (principal) | CPT/HCPCS: 99024 ==

== ENCOUNTER 2023-11-14 14:04 | Inpatient (IN) | payer OTHER, MEDICAID, SELFPAY ==
[2023-11-14] VITALS (7 sets, daily range): BP systolic 132–205; BP diastolic 62–99; PULSE 67–90; RESP 16–18; TEMP 36.7; O2SAT 95–98; BMI 37.2; BMI 38.5
--- NOTE | 2023-11-14 14:07 | XRR_ITS ---
PROCEDURE INFORMATION: Exam: XR Chest Exam date and time: 11/14/2023 2:13 PM Age: 62 years old Clinical indication: Pain; Angina pectoris; Additional info: Chest pain TECHNIQUE: Imaging protocol: Radiologic exam of the chest. Views: 1 view. COMPARISON: CR XR chest 1V portable [id number] 04/13/2023 9:18 PM FINDINGS: Lungs: Unremarkable. No consolidation. Pleural spaces: Unremarkable. No pleural effusion. No pneumothorax. Heart/Mediastinum: Unremarkable. No cardiomegaly. Bones/joints: Unremarkable. XR/XR chest 1V portable [id number] IMPRESSION: No acute findings.
--- NOTE | 2023-11-14 14:10 | ECG_ITS ---
[facility] Test Date: 2023-11-14 Pat Name: Watson Bridges Department: Room: Gender: Female Vpk Teacher: : 1960 Requested By: Bren Mckenzie Order Number: [id number] Aleks MD: Denisse Rodriguez M.D. Measurements Intervals [place] Rate: 67 P: 49 UT: 185 QRS: 26 QRSD: 94 T: 118 QT: 367 QTc: 390 Interpretive Statements SINUS RHYTHM MODERATE ST DEPRESSION [0.05+ mV ST DEPRESSION] ABNORMAL QRS-T ANGLE [QRS-T AXIS DIFFERENCE > 60] Compared to ECG 05/25/2023 15:21:23 ST (T wave) deviation now present Sinus tachycardia no longer present Myocardial infarct finding no longer present Electronically Signed On 11-14-2023 22:58:53 CDT by Denisse Rodriguez M.D. [id number]
--- NOTE | 2023-11-14 14:22 | W.ED.CHESTPA ---
HPI - Chest Pain General: Chief Complaint: Chest Pain Stated Complaint: Chest pain Time Seen by Provider: 11/14/23 14:07 Source: patient and EMS Mode of arrival: EMS Limitations: no limitations History of Present Illness: Patient is a 62-year-old female coming from [facility] via EMS for evaluation of chest pain. Patient states last night she had a difficult time falling asleep as she intermittently would have pains in the left side of her chest radiating to her left shoulder. She states when she woke up this morning she immediately noticed pain as well and it was more constant and persistent thus prompting her to call EMS. Patient has an extensive past medical history including CAD with multiple stents, CVA, HTN, diabetes, BETH requiring oxygen at night, GERD, RLS, obesity, hyperlipidemia. Patient states her pain when EMS arrived was an 8/10. They administered 324 mg chewable aspirin and 2 nitro and she states this brought her to pain down to a 2/10. Upon arrival she is having an elevated blood pressure reading however EMS states they got a low blood pressure therefore we will recheck this. Last echocardiogram was performed 02/2023 and results are as follows: LV systolic function is normal with EF of 50 to 55%. Grade 1 diastolic dysfunction Trace mitral regurgitation Mild tricuspid regurgitation MD complaint: chest pain Pertinent past history: coronary artery disease Onset (ago): hour(s) Timing of current episode: episodic and constant Prior episodes: Yes Onset: during rest Pain location: left chest Pain radiation: left shoulder Severity: severe Pain scale (0-10): 8 Quality: sharp Relieving factors: nitroglycerin Exacerbating factors: nothing Associated symptoms: Reports dyspnea (states intermittently last night during episodes of chest pain); Deny abdominal pain, fever(s), nausea, palpitations, syncope or vomiting Treatment prior to arrival: aspirin and nitroglycerin Risk Factors: Coronary artery disease risk factors: diabetes, hyperlipidemia and hypertension Thoracic aortic dissection risk factors: none Pulmonary embolism risk factors: history of pulmonary embolism, recent surgery (back surgery two months ago) and morbid obesity Related Data: On Oral Contraceptives: No Review of Systems Const: Denies: fever(s), chills, body aches, fatigue or malaise Card: Reports: chest pain; Denies: palpitations, irregular heart rhythm, edema, lightheadedness, syncope, pre-syncope, dyspnea on exertion, orthopnea, leg pain with exertion or acrocyanosis Resp: Reports: dyspnea (states intermittently last night during episodes of chest pain); Denies: productive cough, non-productive cough, wheezing, stridor, pain on inspiration, change in phlegm color, hemoptysis or chest congestion GI: Denies: abdominal pain, nausea or vomiting Musc: Reports: other (chronic restless leg syndrome); Denies: neck pain, back pain, extremity pain, extremity swelling or joint pain Skin/Breast: Denies: rash Neuro: Denies: headache(s), numbness in extremities, weakness in extremities, sensory changes or dizziness PFSH ED PFSH: Medical History Small bowel strangulation Dyslipidemia Chronic cystitis Gross hematuria Osteoporosis Morbid obesity Constipation Migraine headache Bilateral lower extremity edema RLS (restless legs syndrome) GERD (gastroesophageal reflux disease) BETH (obstructive sleep apnea) CVA (cerebral vascular accident) CAD (coronary artery disease) HTN (hypertension) DM type 2 (diabetes mellitus, type 2) Pulmonary embolism, bilateral Opioid contract exists Long-term use of high-risk medication Chronic low back pain Surgical History H/O heart artery stent S/P hysterectomy S/P tonsillectomy and adenoidectomy S/P appendectomy S/P cholecystectomy Hx of total knee replacement History of partial surgical removal of colon Family History Grandfather Cancer Family/Other Myocardial infarct MOTHER, FATHER, BROTHER, SISTER Hypertension Diabetes Mother , at age 66 CAD (coronary artery disease) Father , at age 74 CAD (coronary artery disease) Sister CAD (coronary artery disease) Brother CAD (coronary artery disease) Other Stroke Denies family history of Anesthesia complication Bleeding disorder Social History Smoking and tobacco/nicotine status: current some day tobacco/nicotine user Alcohol intake: never Substance/Drug Use: current Substance/Drug use frequency: other Other substance/drug use details: smokes medical marijauna occasionally at night to help her sleep Lives independently: Yes Marital status: Current occupational status: disabled Current gender identity: Female Special vik needs: No Physical Exam Const: COMMON NORMALS: no acute distress, patient oriented x3, no limitations and alert GENERAL APPEARANCE: cooperative NUTRITIONAL APPEARANCE: obese ORIENTATION/CONSCIOUSNESS: Yes awake, Yes oriented to person, Yes oriented to place and Yes oriented to time Chest: COMMONS NORMALS: normal inspection of the chest and normal palpation of entire chest wall Resp: COMMON NORMALS: normal respiratory effort and clear to auscultation bilaterally AUSCULTATION: clear to auscultation bilaterally Cardio: COMMON NORMALS: regular rate and regular rhythm RATE: regular rate RHYTHM: regular rhythm Extremity: NARRATIVE EXTREMITY EXAM: edema bilateral LE due to body habitus/obesity; non-pitting; does not clinically appear fluid overloaded GENERAL: Yes normal exam except as noted Neuro: MELODIE COMA SCALE: document GCS findings Melodie coma scale eye opening: Spontaneous Melodie coma scale verbal response: Orientated [place] coma scale motor response: Obey commands [place] coma scale total score: 15 COMMON NORMALS: patient oriented x3, moves all extremities, no focal motor deficits and no sensory deficits noted SENSORIUM/ORIENTATION: Yes alert, Yes oriented to person, Yes oriented to place and Yes oriented to time Skin: COMMON NORMALS: no rashes or lesions noted GENERAL SKIN EXAM: no rashes or lesions noted Course Consultations: Consultation #1: Dr. Ramírez-accepts hospitalization, recommends consultation with Dr. Rodriguez so he can see patient as well Consultation #2: Dr. Rodriguez-will consult on patient while in hospital Vital Signs: Vital signs: Vital Signs Temperature 98.0 F 11/14/23 14:07 Pulse Rate 68 11/14/23 14:07 Blood Pressure 132/99 11/14/23 14:43 Pulse Oximetry 98 11/14/23 14:07 Oxygen Delivery Me thod Room Air 11/14/23 14:07 MDM - Chest Pain Medical Decision Making Patient is a 62-year-old female with an extensive past medical history here for complaints of intermittent chest pain starting yesterday evening with chest pains becoming more persistent today. She has a history of coronary artery disease with multiple cardiac stents. Her chest pain today was alleviated by nitro given by EMS. It has not returned during her ED stay. Her EKGs showing new T wave inversions in lead I and aVL. She had some questionable ST elevation in lead III. Spoke to Dr. Barragan who sent EKGs to Dr. Eugene who recommended treating like a NTEMI at this time. I have spoken to hospitalist Dr. Ramírez for admission. I also spoke to Dr. Rodriguez to consult on this patient. She has been given Lovenox here as well as insulin for her elevated blood sugars. Medical Records I reviewed the patient's medical records. Lab Data I reviewed the patient's lab results. 11/14/23 14:37 11/14/23 14:37 Radiology Impressions Chest X-Ray 11/14/23 14:07 IMPRESSION: No acute findings. Laboratory Results WBC 10.67 10^3/uL (3.29-11.43) 11/14/23 14:37 RBC 3.73 10^6/uL (3.85-5.65) L 11/14/23 14:37 Hgb 10.60 g/dL (11.27-16.99) L 11/14/23 14:37 Hct 32.6 % (36-47) L 11/14/23 14:37 MCV 87.4 fl (85-98) 11/14/23 14:37 MCH 28.4 pg (27-33) 11/14/23 14:37 MCHC 32.5 g/dL (30-55) 11/14/23 14:37 RDW 14.2 % (12.1-15.1) 11/14/23 14:37 Plt Count 339 10^3/cmm (157-399) 11/14/23 14:37 MPV 9.7 fL (7.4-10.4) 11/14/23 14:37 Neut % (Auto) 58.2 % 11/14/23 14:37 Lymph % (Auto) 26.1 % 11/14/23 14:37 [place] % (Auto) 5.9 % 11/14/23 14:37 Eos % (Auto) 8.9 % 11/14/23 14:37 Baso % (Auto) 0.6 % 11/14/23 14:37 Neut # (Auto) 6.22 10^3/uL (1.8-7.7) 11/14/23 14:37 Lymph # (Auto) 2.8 10^3/uL (0.8-4.8) 11/14/23 14:37 [place] # (Auto) 0.6 10^3/uL (0.2-0.9) 11/14/23 14:37 Eos # (Auto) 1.0 10^3/uL (0.0-0.8) H 11/14/23 14:37 Baso # (Auto) 0.1 10^3/uL (0.0-0.1) 11/14/23 14:37 Nucleated RBC % (auto) 0 % 11/14/23 14:37 Nucleated RBCs # 0.0 /100WBC 11/14/23 14:37 Sodium 134 mmol/L (136-145) L 11/14/23 14:37 Potassium 5.6 mmol/L (3.5-5.1) H 11/14/23 14:37 Chloride 100 mmol/L (98-107) 11/14/23 14:37 Carbon Dioxide 25 mmol/L (22-29) 11/14/23 14:37 Anion Gap 14.6 (5-19) 11/14/23 14:37 BUN 34 mg/dL (8-23) H 11/14/23 14:37 Creatinine 1.3 mg/dL (0.5-0.9) H 11/14/23 14:37 GFR Calculation 41.8 mL/min (90-130) L 11/14/23 14:37 Glucose 422 mg/dL (65-115) H 11/14/23 14:37 Calculated Osmolality 304 mOsm/kg (285-295) H 11/14/23 14:37 Calcium 8.7 mg/dL (8.5-10.5) 11/14/23 14:37 Total Bilirubin 0.2 mg/dL (0.15-1.2) 11/14/23 14:37 AST 8 U/L (0-32) 11/14/23 14:37 ALT 8 U/L (0-33) 11/14/23 14:37 Alkaline Phosphatase 88 U/L (35-105) 11/14/23 14:37 Troponin T Baseline 90 ng/L (0-10) H 11/14/23 14:37 NT-Pro-B Natriuret Pep 852 pg/mL (0-125) H 11/14/23 14:37 Total Protein 5.8 g/dL (6.6-8.7) L 11/14/23 14:37 Albumin 3.3 g/dL (3.5-5.2) L 11/14/23 14:37 Globulin 2.5 g/dL (1.3-4.6) 11/14/23 14:37 Digoxin 1.3 ng/mL (0.6-1.2) H 11/14/23 14:37 All radiology interpretation(s) finalized by discharge Discharge Plan Discharge Patient Disposition: Admitted As Inpatient Clinical Impression: Diabetes mellitus, CAD (coronary artery disease), Non-ST elevation RI (NSTEMI) Condition: Stable Prescriptions: No Action (DME) walker with seat and brakes See Rx Instructions .Route .MEDSUPPLY Qty: 1 0RF Rx Instructions: As directed (DME) InPen (for Humalog) Insulin Pen See Rx Instructions .Route Qty: 150 0RF Rx Instructions: qid to inject insulin (DME) diabetic shoes and inserts See Rx Instructions .Route .MEDSUPPLY Qty: 1 0RF Rx Instructions: As directed (DME) lancets [BD Ultra Fine Lancets] 33 gauge misc See Rx Instructions .Route Qty: 100 1RF Rx Instructions: As directed (DME) insulin syringe-needle U-100 [BD Veo Insulin Syringe UF] 1/2 mL 31 gauge x 15/64 syringe See Rx Instructions .ROUTE .MEDSUPPLY Qty: 100 2RF Rx Instructions: As directed pantoprazole 40 mg tablet,delayed release (DR/EC) 40 mg PO QAM insulin glargine [Lantus Solostar U-100 Insulin] 100 unit/mL (3 mL) insulin pen 32 unit SUBCUT QAM ondansetron HCl 4 mg tablet 4 mg PO BID PRN (Reason: Nausea) hydrocodone-acetaminophen 10-325 mg tablet 1 tab PO Q6H PRN (Reason: Pain, Moderate) Ozempic 0.25 mg or 0.5 mg (2 mg/3 mL) pen injector 0.5 mg SUBCUT Q7D tamsulosin 0.4 mg capsule 0.4 mg PO BEDTIME@22 ropinirole 0.5 mg tablet 0.5 mg PO BEDTIME@22 Qty: 30 2RF (DME) oxygen tubing See Rx Instructions .Route .MEDSUPPLY Qty: 1 0RF [facility] ASO to RIGHT See Rx Instructions .Route .MEDSUPPLY Qty: 1 0RF Rx Instructions: As directed (DME) wheel-chair with foot rest See Rx Instructions .Route .MEDSUPPLY Qty: 1 0RF Rx Instructions: As directed by HOME levothyroxine 25 mcg capsule 25 mcg PO QAM sertraline [Zoloft] 25 mg tablet 25 mg PO BEDTIME trazodone 50 mg tablet 50 mg PO BEDTIME (DME) Accu-Chek Guide test strips Strip See Rx Instructions .Route Qty: 100 5RF Rx Instructions: As directed; to test 5 x daily (DME) Incontinence Supplies See Rx Instructions .Route .MEDSUPPLY Qty: 1 0RF Rx Instructions: As directed triamterene-hydrochlorothiazid 37.5-25 mg tablet 2 tab PO DAILY Qty: 30 2RF digoxin 125 mcg (0.125 mg) tablet 125 mcg PO DAILY@12 calcium carbonate [Tums] 200 mg calcium (500 mg) Tablet,Chewable 1,000 mg PO DAILY PRN (Reason: Stomach Upset) nitroglycerin [Nitrostat] 0.4 mg Tablet, Sublingual 0.4 mg SUBLINGUAL Q5M PRN (Reason: Chest Pain) Rx Instructions: do not exceed 3 doses per episode atorvastatin 40 mg tablet 40 mg PO DAILY@07 potassium chloride 10 mEq tablet extended release 10 meq PO DAILY@07 metformin 1,000 mg tablet 1,000 mg PO DAILY Hold Instructions: Resume on 02/27/23. buspirone 15 mg tablet 15 mg PO BID cholecalciferol (vitamin D3) 1,250 mcg (50,000 unit) capsule 50,000 unit PO Q7D Rx Instructions: Takes on Fridays Brilinta 90 mg tablet 90 mg PO BID@07,22 isosorbide mononitrate 30 mg tablet extended release 24 hr 30 mg PO DAILY Qty: 90 0RF bupropion HCl 200 mg tablet sustained-release 12 hr 200 mg PO BID insulin lispro [Humalog KwikPen Insulin] 100 unit/mL insulin pen 29 sliding scale dose SUBCUT TID metoprolol succinate 50 mg tablet extended release 24 hr 75 mg PO DAILY aspirin 81 mg Tablet,Delayed Release (Dr/Ec) 81 mg PO DAILY@07 acetaminophen 650 mg Tablet Extended Release 1,300 mg PO Q8H PRN (Reason: Pain) Milk of Magnesia 400 mg/5 mL Suspension 30 ml PO DAILY PRN (Reason: Constipation) Referrals: Niko Jerez MD [Primary Care Provider] - Coding Level of Care Code ED End Finder Twisting Department for oRmie [place]
--- NOTE | 2023-11-14 14:40 | PC.PHAR ---
PT IS FROM [facility]. NO PAPERWORK FOUND. FAXING MED LIST.
[2023-11-14 14:45] LABS: Basophils # 0.1 10^3/uL (0.0-0.1); Basophils % 0.6 %; Eosinophils % 8.9 %; Hematocrit 32.6 % (36-47); Lymphocytes # 2.8 10^3/uL (0.8-4.8); Lymphocytes % 26.1 %; Mean Corpuscular HGB Conc 32.5 g/dL (30-55); Mean Corpuscular Hemoglobin 28.4 pg (27-33); Mean Corpuscular Volume 87.4 fl (85-98); Mean Platelet Volume 9.7 fL (7.4-10.4); Monocytes # 0.6 10^3/uL (0.2-0.9); Monocytes % 5.9 %; Neutrophils # 6.22 10^3/uL (1.8-7.7); Neutrophils % 58.2 %; Nucleated Red Blood Cells % 0 %; Platelet Count 339 10^3/cmm (157-399); Red Blood Count 3.73 10^6/uL (3.85-5.65); Red Cell Distribution Width 14.2 % (12.1-15.1); White Blood Count 10.67 10^3/uL (3.29-11.43)
[2023-11-14 15:07] LABS: Troponin(5th) Baseline 90 ng/L (0-10)
[2023-11-14 15:08] LABS: Digoxin 1.3 ng/mL (0.6-1.2)
[2023-11-14 15:19] LABS: Alanine Aminotransferase 8 U/L (0-33); Albumin Level 3.3 g/dL (3.5-5.2); Alkaline Phosphatase 88 U/L (35-105); Anion Gap 14.6 (5-19); Aspartate Amino Transferase 8 U/L (0-32); Blood Urea Nitrogen 34 mg/dL (8-23); Calcium 8.7 mg/dL (8.5-10.5); Carbon Dioxide 25 mmol/L (22-29); Chloride 100 mmol/L (98-107); Creatinine Clr Calc Pharmacy 50.5217; Globulin 2.5 g/dL (1.3-4.6); Glomerular Filtration Rate 41.8 mL/min (90-130); Glucose 422 mg/dL (65-115); NT Pro B Type Natriuretic Pept 852 pg/mL (0-125); Osmolality Calculated 304 mOsm/kg (285-295); Potassium 5.6 mmol/L (3.5-5.1); Sodium 134 mmol/L (136-145); Total Bilirubin 0.2 mg/dL (0.15-1.2); Total Protein 5.8 g/dL (6.6-8.7)
[2023-11-14] MEDS: insulin regular-human 100 units/1 mL 10 UNIT IVP (15:29)
--- NOTE | 2023-11-14 15:31 | PM.HP ---
Providers/Chief Complaint Primary Care Provider: Niko Jerez MD Chief Complaint: Chest pain History of Present Illness Watson Bridges is a 62 year old female who came from [facility] with chief complaint of left-sided shoulder pain, patient has had multiple falls in the past, she is describing her pain as burning sensation, she woke up around midnight yesterday, she could not sleep for 3 hours because of constant pain, pain got relieved spontaneously, she is denying shortness of breath nausea vomiting diarrhea or diaphoresis. She is not endorsing chest pain stating that now she has headache from nitroglycerin. In the ER there was concern for T wave changes however customer care assistant did not agree and asked to manage as non-STEMI for now Troponins are high however it is delta troponin is not significant, she is not complaining of active pain Hemodynamically stable Patient is bedbound from her back surgeries and back injuries, she uses wheelchair for ambulation Full code Review of Systems Const: Denies: fever(s) Eyes: Denies: change in vision ENMT: Denies: throat pain Card: Denies: chest pain Resp: Denies: dyspnea GI: Reports: nausea Medications/Allergies Home Medications Medication Instructions Recorded Confirmed Last Taken Type walker with seat and brakes #1 ea 03/26/20 11/14/23 08/08/20 22:30 Rx insulin admin supplies (InPen (for #150 ea 10/04/21 11/14/23 Unknown Rx Humalog) subcutaneous) aspirin 81 mg tablet,delayed 81 mg PO DAILY@10/14/21 11/14/23 09/10/23 History release diabetic shoes and inserts #1 ea 05/11/22 11/14/23 Unknown Rx insulin syringe-needle U-100 /2 #100 ea 09/23/22 11/14/23 Unknown Rx mL 31 gauge x 15/64 (BD Veo Insulin Syringe Ultra-Fine) lancets 33 gauge (BD Ultra Fine #100 ea 09/23/22 11/14/23 Unknown Rx Lancets) blood sugar diagnostic (Accu-Chek #100 ea 12/09/22 11/14/23 Unknown Rx Guide test strips) tamsulosin 0.4 mg capsule 0.4 mg PO BEDTIME@01/06/23 11/14/23 09/14/23 History atorvastatin 40 mg tablet 40 mg PO DAILY@01/18/23 11/14/23 09/14/23 History buspirone 15 mg tablet 15 mg PO BID 01/18/23 11/14/23 09/14/23 History calcium carbonate (Tums) 1,000 mg PO DAILY PRN Stomach Upset 01/18/23 11/14/23 09/14/23 History cholecalciferol (vitamin D3) 1,250 50,000 unit PO Q7D 01/18/23 11/14/23 09/14/23 History mcg (50,000 unit) capsule digoxin 125 mcg (0.125 mg) tablet 125 mcg PO DAILY@12 01/18/23 11/14/23 09/14/23 History metformin 1,000 mg tablet 1,000 mg PO DAILY 01/18/23 11/14/23 09/14/23 History nitroglycerin 0.4 mg sublingual 0.4 mg sublingual Q5M PRN Chest 01/18/23 11/14/23 Unknown History tablet (Nitrostat) Pain potassium chloride 10 mEq 10 meq PO DAILY@01/18/23 11/14/23 09/14/23 History tablet,extended release ticagrelor 90 mg tablet (Brilinta) 90 mg PO BID@01/18/23 11/14/23 09/14/23 History ASO to RIGHT #1 ea 01/20/23 11/14/23 Unknown Rx wheel-chair with foot rest #1 ea 01/20/23 11/14/23 Unknown Rx oxygen tubing #1 ea 01/24/23 11/14/23 Unknown Rx ropinirole 0.5 mg tablet 0.5 mg PO BEDTIME@22 #30 tabs 01/24/23 11/14/23 09/14/23 Rx Incontinence Supplies #1 ea 01/27/23 11/14/23 Unknown Rx isosorbide mononitrate 30 mg 30 mg PO DAILY #90 tabs 02/21/23 11/14/23 09/14/23 Rx tablet,extended release 24 hr levothyroxine 25 mcg capsule 25 mcg PO QAM 05/08/23 11/14/23 09/14/23 History sertraline 25 mg tablet (Zoloft) 25 mg PO BEDTIME 05/08/23 11/14/23 09/14/23 History triamterene 37.5 2 tab PO DAILY #30 tabs 08/09/23 11/14/23 09/14/23 Rx mg-hydrochlorothiazide 25 mg tablet hydrocodone 10 mg-acetaminophen 1 tab PO Q6H PRN Pain, Moderate 09/07/23 11/14/23 Unknown History 325 mg tablet insulin glargine 100 unit/mL (3 32 unit SUBCUT QAM 09/07/23 11/14/23 09/13/23 History mL) subcutaneous pen (Lantus Solostar U-100 Insulin) ondansetron HCl 4 mg tablet 4 mg PO BID PRN Nausea 09/07/23 11/14/23 09/14/23 History pantoprazole 40 mg tablet,delayed 40 mg PO QAM 09/07/23 11/14/23 09/14/23 History release semaglutide 0.25 mg or 0.5 mg (2 0.5 mg SUBCUT Q7D 09/07/23 11/14/23 09/08/23 History mg/3 mL) subcutaneous pen injector (Ozempic) trazodone 50 mg tablet 50 mg PO BEDTIME 09/07/23 11/14/23 09/14/23 History bupropion HCl 200 mg tablet,12 hr 200 mg PO BID 09/14/23 11/14/23 09/14/23 History sustained-release insulin lispro 100 unit/mL 29 sliding scale dose SUBCUT TID 09/14/23 11/14/23 09/14/23 History subcutaneous pen (Humalog KwikPen (U-100) Insulin) metoprolol succinate 50 mg 75 mg PO DAILY 09/15/23 11/14/23 09/15/23 History tablet,extended release 24 hr acetaminophen 650 mg 1,300 mg PO Q8H PRN Pain 11/14/23 11/14/23 Unknown History tablet,extended release magnesium hydroxide 400 mg/5 mL 30 ml PO DAILY PRN Constipation 11/14/23 11/14/23 Unknown History oral suspension (Milk of Magnesia) Allergies Allergy/AdvReac Type Severity Reaction Status Date / Time hyoscyamine Allergy Severe ADR-Itching Verified 11/14/23 14:14 ciprofloxacin [From Cipro] Allergy hives Verified 11/14/23 14:14 citalopram Allergy effects Verified 11/14/23 14:14 speach and memory clopidogrel [From Plavix] Allergy unk Verified 11/14/23 14:14 coconut Allergy Unknown Verified 11/14/23 14:14 ibuprofen Allergy RASH/ Verified 11/14/23 14:14 SWELLING morphine Allergy ITCHING Verified 11/14/23 14:14 famotidine AdvReac Mild itching Verified 11/14/23 14:14 esomeprazole [From Nexium] AdvReac Unknown Verified 11/14/23 14:14 cefdinir Allergy unknown Uncoded 11/14/23 14:14 PFSH Acute PFSH: Medical History Small bowel strangulation Dyslipidemia Chronic cystitis Gross hematuria Osteoporosis Morbid obesity Constipation Migraine headache Bilateral lower extremity edema RLS (restless legs syndrome) GERD (gastroesophageal reflux disease) BETH (obstructive sleep apnea) CVA (cerebral vascular accident) CAD (coronary artery disease) HTN (hypertension) DM type 2 (diabetes mellitus, type 2) Pulmonary embolism, bilateral Opioid contract exists Long-term use of high-risk medication Chronic low back pain Surgical History H/O heart artery stent S/P hysterectomy S/P tonsillectomy and adenoidectomy S/P appendectomy S/P cholecystectomy Hx of total knee replacement History of partial surgical removal of colon Family History Grandfather Cancer Family/Other Myocardial infarct MOTHER, FATHER, BROTHER, SISTER Hypertension Diabetes Mother , at age 66 CAD (coronary artery disease) Father , at age 74 CAD (coronary artery disease) Sister CAD (coronary artery disease) Brother CAD (coronary artery disease) Other Stroke Denies family history of Anesthesia complication Bleeding disorder Social History Smoking and tobacco/nicotine status: current some day tobacco/nicotine user Alcohol intake: never Substance/Drug Use: current Substance/Drug use frequency: other Other substance/drug use details: smokes medical marijauna occasionally at night to help her sleep Lives independently: Yes Marital status: Current occupational status: disabled Current gender identity: Female Special vik needs: No Vitals/I&O/Wt Last Vital Signs Temp 98.0 F 05/07/24 14:07 Pulse 68 11/14/23 14:07 BP 132/99 11/14/23 14:43 Pulse Ox 98 11/14/23 14:07 O2 Del Method Room Air 11/14/23 14:07 Weight last 48 hrs Weight 95.254 kg Physical Exam Narrative: Nonpitting edema of legs Currently on room air Nonfocal neuroexam GCS 15 Pleasant cooperative Distended abdomen nontender Pleasant cooperative Nonfocal neuroexam Data 11/14/23 14:37 11/14/23 14:37 A&P Assessment and plan (1) Depression with anxiety: (2) CHF (congestive heart failure): (3) Chest pain: (4) Coronary artery disease due to type 2 diabetes mellitus: (5) Non-ST elevation AL (NSTEMI): (6) Diabetes mellitus: Qualifiers: Diabetes mellitus type: type 2 Diabetes mellitus audit practice intern insulin use: with audit practice intern use Diabetes mellitus complication status: with hyperglycemia Qualified Code(s): E11.65 - Type 2 diabetes mellitus with hyperglycemia; Z79.4 - [facility] (current) use of insulin (7) Type 2 diabetes mellitus with diabetic polyneuropathy: Qualifiers: Diabetes mellitus halfway insulin use: with halfway use Qualified Code(s): E11.42 - Type 2 diabetes mellitus with diabetic polyneuropathy; Z79.4 - [facility] (current) use of insulin (8) Generalized muscle weakness: (9) Lower extremity weakness: Plan Non-STEMI No active chest pain Continue aspirin and Brilinta Start therapeutic Lovenox No active discomfort EKG without active infarctive changes, Acute preserved ejction fraction heart exacerbation Continue diuresis Patient is bedbound Not very active at baseline secondary to back surgeries Cardiac diet Full code Digoxin to be held Cardiac consistent carb diet insulin sliding scale Continue with thyroxine Acute on chronic kidney disease Hold nephrotoxic agents Attestations Medical Necessity Statement*: More than 2 midnights anticipated for management of non-STEMI Diagnoses Depression with anxiety F41.8 CHF (congestive heart failure) I50.9 Chest pain R07.9 Coronary artery disease due to type 2 diabetes mellitus E11.59; I25.10 Non-ST elevation AL (NSTEMI) I21.4 Type 2 diabetes mellitus with hyperglycemia, with long-term current use of insulin E11.65; Z79.4 Diabetes mellitus type: type 2 Diabetes mellitus audit practice intern insulin use: with audit practice intern use Diabetes mellitus complication status: with hyperglycemia Type 2 diabetes mellitus with diabetic polyneuropathy, with long-term current use of insulin E11.42; Z79.4 Diabetes mellitus audit practice intern insulin use: with halfway use Generalized muscle weakness M62.81 Lower extremity weakness R29.898
[2023-11-14] MEDS: enoxaparin 100 mg/mL Syringe 90 MG SUBCUT (15:32)
--- NOTE | 2023-11-14 15:46 | PC.NURSE ---
pt incontinent of bowel/ bladder. changed linens and depend, provided ike care
--- NOTE | 2023-11-14 16:12 | ECG_ITS ---
[facility] Test Date: 2023-11-14 Pat Name: Watson Bridges Department: Room: Gender: Female Cnc Specialist: : 1960 Requested By: Bren Mckenzie Order Number: [id number] Aleks MD: Denisse Rodriguez M.D. Measurements Intervals [place] Rate: 70 P: 46 CT: 204 QRS: 40 QRSD: 98 T: 111 QT: 369 QTc: 399 Interpretive Statements SINUS RHYTHM MODERATE ST DEPRESSION [0.05+ mV ST DEPRESSION] ABNORMAL QRS-T ANGLE [QRS-T AXIS DIFFERENCE > 60] Compared to ECG 11/14/2023 14:24:26 No significant changes Electronically Signed On 11-14-2023 23:10:36 CDT by Denisse Rodriguez M.D. [email or web address]
[2023-11-14 16:26] LABS: D Dimer 0.98 ug/mLFEU (0-0.59)
[2023-11-14 17:15] LABS: Glucose Point of Care 299 mg/dL (70-110)
--- NOTE | 2023-11-14 17:34 | USCV_ITS ---
Watson Bridges Age: 62 Gender: F : 1960 Exam Date: 11/14/2023 20:09 Ordering Phys: Renay Ramírez MD Technologist: PANFILO [place] [facility] [place]: NSTEMI, history CAD s/p multiple stents, history CVA, HTN, DM, GERD, obesity, HL. BP: 168 / 80 HR: 66 Rhythm: Sinus Technical Quality: Adequate MEASUREMENTS (Male / Female) Normal Values 2D ECHO LV Diastolic Diameter PLAX 4.7 cm 4.2 - 5.9 / 3.9 - 5.3 cm IVS Diastolic Thickness 2.0 cm 0.6 - 1.0 / 0.6 - 0.9 cm IVS Systolic Thickness 2.1 cm LVPW Diastolic Thickness 1.1 cm 0.6 - 1.0 / 0.6 - 0.9 cm LVPW Systolic Thickness 1.7 cm LVOT Diameter 1.7 cm LV Ejection Fraction 2D Teich 37.9 % LV Ejection Fraction MOD 2C 38.4 % LV Ejection Fraction 2C AL 38.1 % LA Diameter 4.1 cm LA Sys Volume AL 79.7 cm cubed LA Sys Volume Index AL 37.9 cm cubed/m squared Aorta at Sinotubular Diameter 2.8 cm IVC Diameter 1.6 cm M-MODE LA Ao Ratio MM 1.4 AV Cusp Separation MM 1.6 cm DOPPLER AV Peak Velocity 165.0 cm/s LVOT Peak Velocity 111.0 cm/s AV Area Cont Eq vti 1.7 cm squared AV Area Cont Eq pk 1.5 cm squared MV Peak Velocity 159.0 cm/s MV Area PHT 3.6 cm squared Mitral E to A Ratio 0.8 TR Peak Velocity 171.0 cm/s TR Peak Gradient 11.7 mmHg TV Peak E Velocity 75.0 cm/s Right Atrial Pressure 3.0 mmHg Pulmonary Artery Systolic Pressu 14.7 mmHg PV Peak Velocity 104.0 cm/s FINDINGS Left Ventricle Normal left ventricular size . LV ejection fraction around 45 % (visual).mild left ventricular hypertrophy. Diffuse hypokinesia of the inferolateral wall segment. Grade I/IV diastolic dysfunction (abnormal relaxation filling pattern), normal to mildly elevated filling pressures. Right Ventricle The right ventricle is normal in size and function. Right Atrium The right atrium is normal in size. Left Atrium The left atrium is normal in size. Mitral Valve Mild mitral annular calcification. Thickened mitral valve. Mild mitral valve regurgitation. Aortic Valve Calcification in the right coronary cusp.thickened aortic valve. Tricuspid Valve No gross abnormalities noted Pulmonic Valve Pulmonic valve not well visualized. Pericardium Normal pericardium without effusion. Aorta Normal ascending aorta dimension. IVC The inferior vena cava appears normal. CONCLUSIONS Normal left ventricular size . LV ejection fraction around 45 % (visual).mild left ventricular hypertrophy. Diffuse hypokinesia of the inferolateral wall segment. Grade I/IV diastolic dysfunction (abnormal relaxation filling pattern), normal to mildly elevated filling pressures. Mild mitral annular calcification. Thickened mitral valve. Mild mitral valve regurgitation. Calcification in the right coronary cusp. Thickened aortic valve. There are no intracardiac masses. There is no pericardial effusion. Compared to the study from 02/20/2023, the wall motion abnormality appears to be new Dr Denisse Rodriguez MD [facility] (Electronically Signed) Final Date: 14 Nov 2023 21:29 S
--- NOTE | 2023-11-14 17:36 | PC.NURSE ---
Patient came to [facility] from ED via a bed at 1730.
--- NOTE | 2023-11-14 18:22 | P.CONIM_ITS ---
Providers/Reason For Consult 2 Consulting Physician/Specialty*: RADHA Rodriguez MD/cardiology Reason for Consult*: Patient with unstable anginal symptoms and elevated troponin T Requesting Physician: Dr. Ramírez Attending Physician: Renay Ramírez MD Primary Care Provider: Niko Jerez MD History of Present Illness History of Present Illness Watson Bridges is a 62 year old female is admitted to the hospital through the emergency room, where she presented with complaints of chest pain. This patient apparently has been in her baseline state of health up until midnight last night when she started having left shoulder pain. She had associated shortness of breath. No other associated symptoms or radiation of pain. Intensity of the pain was 7-8/10. The symptom has been waxing and waning through the night. Because of the persistence of the symptoms, she decided to come to the hospital. She has a history of atherosclerotic heart disease and had multiple PCI's in the past. Most recently she had the coronary angiogram in August 2020, here at the [facility]. She was found to have a high-grade lesion in the second obtuse marginal branch of the circumflex artery. She had a mild disease in the other vessels. She underwent PCI of the OM lesion. According the patient, she has been doing okay with no recurrence of chest pain. Patient is known to have multiple other medical problems. History of hypertension, diabetes and dyslipidemia for the last more than 25 years. History of chronic kidney disease, pulmonary embolism, CVA, type 2 diabetes, sleep apnea and morbid obesity. Patient is poor historian. She seems to think that all her coronary interventions were done in [facility]. In fact she had catheterization followed by PCI in 2020 here at our hospital. Family history significant for her father had congestive heart failure. Mother of myocardial infarction in her 60s. 2 of her sisters and one of her brothers had myocardial events in their 60s. No other known family history. She has no children and her multiple miscarriages. She has no history of smoking abuse. History of alcohol abuse as a teenager. No other substance abuse. She has difficulty in ambulation. She has a history of frequent fall and has been ambulating around on a wheelchair. She put herself in a residential a year ago. She had some back surgeries recently and had an uneventful postprocedure course. Review of Systems 2 Narrative: CONSTITUTIONAL: No fever or chills. EYES: No blurring of vision or other visual disturbances lately. ENT: No hoarseness of voice, auditory disturbances or sore throat. CARDIOVASCULAR: As mentioned above. RESPIRATORY: She has a history of obstructive sleep apnea GASTROINTESTINAL: No hematemesis or melena. GENITOURINARY: No dysuria or hematuria. INTEGUMENTARY: No skin rashes or history of skin cancer. NEURO: History of TIA PSYCHIATRIC: No history of psychosis or major depression. HEMATOLOGIC: History of pulmonary embolism/DVT ENDOCRINE: No history of polyuria or polydipsia. MUSCULOSKELETAL: No recent joint pain or swelling. ALLERGY/IMMUNOLOGY: As mentioned above. Medications/Allergies Home Medications Medication Instructions Recorded Confirmed Last Taken Type walker with seat and brakes #1 ea 03/26/20 11/14/23 08/08/20 22:30 Rx insulin admin supplies (InPen (for #150 ea 10/04/21 11/14/23 Unknown Rx Humalog) subcutaneous) aspirin 81 mg tablet,delayed 81 mg PO DAILY@10/14/21 11/14/23 09/10/23 History release diabetic shoes and inserts #1 ea 05/11/22 11/14/23 Unknown Rx insulin syringe-needle U-100 2 #100 ea 09/23/22 11/14/23 Unknown Rx mL 31 gauge x 15/64 (BD Veo Insulin Syringe Ultra-Fine) lancets 33 gauge (BD Ultra Fine #100 ea 09/23/22 11/14/23 Unknown Rx Lancets) blood sugar diagnostic (Accu-Chek #100 ea 12/09/22 11/14/23 Unknown Rx Guide test strips) tamsulosin 0.4 mg capsule 0.4 mg PO BEDTIME@01/06/23 11/14/23 09/14/23 History atorvastatin 40 mg tablet 40 mg PO DAILY@01/18/23 11/14/23 09/14/23 History buspirone 15 mg tablet 15 mg PO BID 01/18/23 11/14/23 09/14/23 History calcium carbonate (Tums) 1,000 mg PO DAILY PRN Stomach Upset 01/18/23 11/14/23 09/14/23 History cholecalciferol (vitamin D3) 1,250 50,000 unit PO Q7D 07/07/0111/14/23 09/14/23 History mcg (50,000 unit) capsule digoxin 125 mcg (0.125 mg) tablet 125 mcg PO DAILY@01/18/23 11/14/23 09/14/23 History metformin 1,000 mg tablet 1,000 mg PO DAILY 01/18/23 11/14/23 09/14/23 History nitroglycerin 0.4 mg sublingual 0.4 mg sublingual Q5M PRN Chest 01/18/23 11/14/23 Unknown History tablet (Nitrostat) Pain potassium chloride 10 mEq 10 meq PO DAILY@01/18/23 11/14/23 09/14/23 History tablet,extended release ticagrelor 90 mg tablet (Brilinta) 90 mg PO BID@01/18/23 11/14/23 09/14/23 History ASO to RIGHT #1 ea 01/20/23 11/14/23 Unknown Rx wheel-chair with foot rest #1 ea 01/20/23 11/14/23 Unknown Rx oxygen tubing #1 ea 01/24/23 11/14/23 Unknown Rx ropinirole 0.5 mg tablet 0.5 mg PO BEDTIME@22 #30 tabs 01/24/23 11/14/23 09/14/23 Rx Incontinence Supplies #1 ea 01/27/23 11/14/23 Unknown Rx isosorbide mononitrate 30 mg 30 mg PO DAILY #90 tabs 02/21/23 11/14/23 09/14/23 Rx tablet,extended release 24 hr levothyroxine 25 mcg capsule 25 mcg PO QAM 05/08/23 11/14/23 09/14/23 History sertraline 25 mg tablet (Zoloft) 25 mg PO BEDTIME 05/08/23 11/14/23 09/14/23 History triamterene 37.5 2 tab PO DAILY #30 tabs 08/09/23 11/14/23 09/14/23 Rx mg-hydrochlorothiazide 25 mg tablet hydrocodone 10 mg-acetaminophen 1 tab PO Q6H PRN Pain, Moderate 09/07/23 11/14/23 Unknown History 325 mg tablet insulin glargine 100 unit/mL (3 32 unit SUBCUT QAM 09/07/23 11/14/23 09/13/23 History mL) subcutaneous pen (Lantus Solostar U-100 Insulin) ondansetron HCl 4 mg tablet 4 mg PO BID PRN Nausea 09/07/23 11/14/23 09/14/23 History pantoprazole 40 mg tablet,delayed 40 mg PO QAM 09/07/23 11/14/23 09/14/23 History release semaglutide 0.25 mg or 0.5 mg (2 0.5 mg SUBCUT Q7D 09/07/23 11/14/23 09/08/23 History mg/3 mL) subcutaneous pen injector (Ozempic) trazodone 50 mg tablet 50 mg PO BEDTIME 09/07/23 11/14/23 09/14/23 History bupropion HCl 200 mg tablet,12 hr 200 mg PO BID 09/14/23 11/14/23 09/14/23 History sustained-release insulin lispro 100 unit/mL 29 sliding scale dose SUBCUT TID 09/14/23 11/14/23 09/14/23 History subcutaneous pen (Humalog KwikPen (U-100) Insulin) metoprolol succinate 50 mg 75 mg PO DAILY 09/15/23 11/14/23 09/15/23 History tablet,extended release 24 hr acetaminophen 650 mg 1,300 mg PO Q8H PRN Pain 11/14/23 11/14/23 Unknown History tablet,extended release magnesium hydroxide 400 mg/5 mL 30 ml PO DAILY PRN Constipation 11/14/23 11/14/23 Unknown History oral suspension (Milk of Magnesia) Allergies Allergy/AdvReac Type Severity Reaction Status Date / Time hyoscyamine Allergy Severe ADR-Itching Verified 11/14/23 14:14 ciprofloxacin [From Cipro] Allergy hives Verified 11/14/23 14:14 citalopram Allergy effects Verified 11/14/23 14:14 speach and memory clopidogrel [From Plavix] Allergy unk Verified 11/14/23 14:14 coconut Allergy Unknown Verified 11/14/23 14:14 ibuprofen Allergy RASH/ Verified 11/14/23 14:14 SWELLING morphine Allergy ITCHING Verified 11/14/23 14:14 famotidine AdvReac Mild itching Verified 11/14/23 14:14 esomeprazole [From Nexium] AdvReac Unknown Verified 11/14/23 14:14 cefdinir Allergy unknown Uncoded 11/14/23 14:14 PFSH Acute 2 PFSH: Medical History Small bowel strangulation Dyslipidemia Chronic cystitis Gross hematuria Osteoporosis Morbid obesity Constipation Migraine headache Bilateral lower extremity edema RLS (restless legs syndrome) GERD (gastroesophageal reflux disease) BETH (obstructive sleep apnea) CVA (cerebral vascular accident) CAD (coronary artery disease) HTN (hypertension) DM type 2 (diabetes mellitus, type 2) Pulmonary embolism, bilateral Opioid contract exists Long-term use of high-risk medication Chronic low back pain Surgical History H/O heart artery stent S/P hysterectomy S/P tonsillectomy and adenoidectomy S/P appendectomy S/P cholecystectomy Hx of total knee replacement History of partial surgical removal of colon Family History Grandfather Cancer Family/Other Myocardial infarct MOTHER, FATHER, BROTHER, SISTER Hypertension Diabetes Mother , at age 66 CAD (coronary artery disease) Father , at age 74 CAD (coronary artery disease) Sister CAD (coronary artery disease) Brother CAD (coronary artery disease) Other Stroke Denies family history of Anesthesia complication Bleeding disorder Social History Smoking and tobacco/nicotine status: current some day tobacco/nicotine user Alcohol intake: never Substance/Drug Use: current Substance/Drug use frequency: other Other substance/drug use details: smokes medical marijauna occasionally at night to help her sleep Lives independently: Yes Marital status: Current occupational status: disabled Current gender identity: Female Special vik needs: No Vitals/I&O/Wt Last Vital Signs Temp 98.0 F 11/14/23 14:07 Pulse 67 11/14/23 15:33 Resp 18 11/14/23 15:33 BP 168/80 11/14/23 15:33 Pulse Ox 97 11/14/23 15:33 O2 Del Method Room Air 11/14/23 15:33 Weight last 48 hrs Weight 210 lb Physical Exam 2 Narrative: GENERAL: The patient is alert and oriented times three. Not in any acute distress. Moderately obese HEENT: No significant pallor, icterus or lymphadenopathy.Oral cavity: There are no mucous membrane lesions. NECK: Trachea appears to be central. No masses noted. No JVD or thyromegaly appreciated. RESPIRATORY: Chest is symmetrical. No intercostals muscle retraction or any accessory muscle activation. There is no chest wall tenderness. Breath sounds are heard bilaterally. No rales or rhonchi heard. No evidence of any consolidation. BREASTS: Deferred. HEART: The heart sounds are normal. No S3 or S4. Short systolic murmur in the lower sternal border. No diastolic murmurs.. No pericardial rub ABDOMEN: No vessel pulsations or distention. No tenderness. No organomegaly appreciated. Bowel sounds are normally heard. : Deferred. RECTAL: Deferred. LYMPHATIC: No lymphadenopathy noted in the neck. EXTREMITIES: 1-2+ chronic edema MUSCULOSKELETAL: No acute joint deformities or swelling SKIN: There are no significant rashes or ecchymosis NEUROPSYCHIATRIC: The patient is alert and oriented x3. Appears to be in a good mood. No tremors or rigidity noted. Data 11/14/23 14:37 11/14/23 14:37 Other Labs: Laboratory Last Values WBC 10.67 10^3/uL (3.29-11.43) 11/14/23 14:37 RBC 3.73 10^6/uL (3.85-5.65) L 11/14/23 14:37 Hgb 10.60 g/dL (11.27-16.99) L 11/14/23 14:37 Hct 32.6 % (36-47) L 11/14/23 14:37 MCV 87.4 fl (85-98) 11/14/23 14:37 MCH 28.4 pg (27-33) 11/14/23 14:37 MCHC 32.5 g/dL (30-55) 11/14/23 14:37 RDW 14.2 % (12.1-15.1) 11/14/23 14:37 Plt Count 339 10^3/cmm (157-399) 11/14/23 14:37 MPV 9.7 fL (7.4-10.4) 11/14/23 14:37 Neut % (Auto) 58.2 % 11/14/23 14:37 Lymph % (Auto) 26.1 % 11/14/23 14:37 [place]shaw % (Auto) 5.9 % 11/14/23 14:37 Eos % (Auto) 8.9 % 11/14/23 14:37 Baso % (Auto) 0.6 % 11/14/23 14:37 Neut # (Auto) 6.22 10^3/uL (1.8-7.7) 11/14/23 14:37 Lymph # (Auto) 2.8 10^3/uL (0.8-4.8) 11/14/23 14:37 [place] # (Auto) 0.6 10^3/uL (0.2-0.9) 11/14/23 14:37 Eos # (Auto) 1.0 10^3/uL (0.0-0.8) H 11/14/23 14:37 Baso # (Auto) 0.1 10^3/uL (0.0-0.1) 11/14/23 14:37 Nucleated RBC % (auto) 0 % 11/14/23 14:37 Nucleated RBCs # 0.0 /100WBC 11/14/23 14:37 D-Dimer 0.98 ug/mLFEU (0-0.59) H 11/14/23 15:55 Sodium 134 mmol/L (136-145) L 11/14/23 14:37 Potassium 5.6 mmol/L (3.5-5.1) H 11/14/23 14:37 Chloride 100 mmol/L (98-107) 11/14/23 14:37 Carbon Dioxide 25 mmol/L (22-29) 11/14/23 14:37 Anion Gap 14.6 (5-19) 11/14/23 14:37 BUN 34 mg/dL (8-23) H 11/14/23 14:37 Creatinine 1.3 mg/dL (0.5-0.9) H 11/14/23 14:37 GFR Calculation 41.8 mL/min (90-130) L 11/14/23 14:37 Glucose 422 mg/dL (65-115) H 11/14/23 14:37 POC Glucose 299 mg/dL (70-110) H 11/14/23 17:12 Calculated Osmolality 304 mOsm/kg (285-295) H 11/14/23 14:37 Calcium 8.7 mg/dL (8.5-10.5) 11/14/23 14:37 Total Bilirubin 0.2 mg/dL (0.15-1.2) 11/14/23 14:37 AST 8 U/L (0-32) 11/14/23 14:37 ALT 8 U/L (0-33) 11/14/23 14:37 Alkaline Phosphatase 88 U/L (35-105) 11/14/23 14:37 Troponin T Baseline 90 ng/L (0-10) H 11/14/23 14:37 Troponin T 120 Minute 93.60 ng/L (0-10) H 11/14/23 16:11 Delta Troponin T 3.60 ABS# (0-10) 11/14/23 16:11 NT-Pro-B Natriuret Pep 852 pg/mL (0-125) H 11/14/23 14:37 Total Protein 5.8 g/dL (6.6-8.7) L 11/14/23 14:37 Albumin 3.3 g/dL (3.5-5.2) L 11/14/23 14:37 Globulin 2.5 g/dL (1.3-4.6) 11/14/23 14:37 Digoxin 1.3 ng/mL (0.6-1.2) H 11/14/23 14:37 Other data: The EKG from today showed normal sinus rhythm with nonspecific T wave changes in the high lateral leads. Compared to the previous EKGs, the T wave changes are more prominent in the current EKG. Cardiac catheterization 06/09/2021 LM has 0% stenosis. * CX has 0% stenosis. * mLAD: Mild 30% stenosis, ERICK: 3 flow. * Second Obtuse Marginal Branch Segment: Severe 80% stenosis, REICK: 0 flow. * pRCA: Mild 30% stenosis, ERICK: 3 flow. * mRCA: Mild 30% stenosis, ERICK: 3 flow. * dRCA: Mild 30% stenosis, ERICK: 3 flow. * Coronary angiography shows right dominance. A&P Assessment and plan (1) Chest pain: Patient chest pain may suggest unstable angina. Her symptoms are somewhat atypical. The EKG may suggest a high lateral wall ischemia. Currently she is pain-free. She has a persistently elevated troponin T. 2-hour delta is in the normal range. Qualifiers: Chest pain type: other chest pain Qualified Code(s): R07.89 - Other chest pain (2) Atherosclerotic heart disease of [place] coronary artery with other forms of angina pectoris: Patient is known to have atherosclerotic heart diseas. Cardiac catheterization in 2020 revealed a high-grade lesion in the second obtuse marginal artery of the circumflex. She had only mild diffuse disease in the other vessels. She may require repeat cardiac catheterization. (3) Elevated troponin: Patient has a chronically elevated troponin T. The 2-hour delta is negative for injury. (4) Dyslipidemia: (5) Type 2 diabetes mellitus with diabetic polyneuropathy: Appropriate treatment of diabetes may be continued. 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 May continue on the current measures. Qualifiers: Chronic kidney disease stage: stage 3 (moderate) Chronic kidney disease stage 3 subtype: stage 3a (GFR 45-59) Qualified Code(s): N18.31 - Chronic kidney disease, stage 3a (7) HTN (hypertension): Blood pressures are stage II. Will optimize antihypertensive medications. Qualifiers: Hypertension type: essential hypertension Qualified Code(s): I10 - Essential (primary) hypertension Plan Other problems are History of pulmonary embolism History of DVT Obstructive sleep apnea Obesity May hold off on the oral anticoagulant at this time. Echocardiogram would be helpful to evaluate LV function and rule out any other pathology. If the myocardial infarction is ruled out, need to consider a Myocardial perfusion imaging to evaluate for any underlying coronary ischemia. Based on the clinical progress and the results of the above, further recommendations will be made. 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
[2023-11-14 19:33] LABS: Vitamin B12 379 pg/mL (232-1245)
[2023-11-14 19:57] LABS: Estmated Average Glucose 249; Hemoglobin A1C 10.3 % (4.0-6.0)
--- NOTE | 2023-11-14 20:07 | ECG_ITS ---
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 Measurements Intervals [place] Rate: 67 P: 56 MT: 185 QRS: 40 QRSD: 87 T: 128 QT: 364 QTc: 386 Interpretive Statements SINUS RHYTHM MODERATE ST DEPRESSION [0.05+ mV ST DEPRESSION] ABNORMAL QRS-T ANGLE [QRS-T AXIS DIFFERENCE > 60] Compared to ECG 11/14/2023 14:10:35 No significant changes Electronically Signed On 11-14-2023 23:09:17 CDT by Denisse Rodriguez M.D. [email or web address]
[2023-11-14 20:42] LABS: Glucose Point of Care 352 mg/dL (70-110)
[2023-11-14] MEDS: morphine IR 15 mg Tablet PO (21:14)
[2023-11-14] MEDS: ticagrelor 90 mg Tablet PO (21:14)
[2023-11-14 21:41] LABS: Troponin 5 6HR 114.4 ng/L (0-10); Troponin 5 6HR Delta 24.4 ng/L (0-12)
[2023-11-15] VITALS (10 sets, daily range): BP systolic 133–175; BP diastolic 56–96; PULSE 64–98; RESP 14–22; TEMP 36.1–36.9; O2SAT 90–96
[2023-11-15] MEDS: acetaminophen 500 mg Tablet PO (02:18)
[2023-11-15 04:07] LABS: Basophils # 0.1 10^3/uL (0.0-0.1); Basophils % 0.5 %; Eosinophils # 1.4 10^3/uL (0.0-0.8); Eosinophils % 11.6 %; Hematocrit 32.1 % (36-47); Lymphocytes # 3.9 10^3/uL (0.8-4.8); Lymphocytes % 31.6 %; Mean Corpuscular HGB Conc 32.4 g/dL (30-55); Mean Corpuscular Hemoglobin 27.9 pg (27-33); Mean Corpuscular Volume 86.1 fl (85-98); Mean Platelet Volume 9.9 fL (7.4-10.4); Monocytes # 0.8 10^3/uL (0.2-0.9); Monocytes % 6.8 %; Neutrophils # 6.07 10^3/uL (1.8-7.7); Nucleated Red Blood Cells % 0 %; Platelet Count 328 10^3/cmm (157-399); Red Blood Count 3.73 10^6/uL (3.85-5.65); Red Cell Distribution Width 14.1 % (12.1-15.1); White Blood Count 12.38 10^3/uL (3.29-11.43)
[2023-11-15 04:32] LABS: Anion Gap 13.3 (5-19); Blood Urea Nitrogen 36 mg/dL (8-23); C Reactive Protein 3.8 mg/L (0.0-4.9); Calcium 9.4 mg/dL (8.5-10.5); Carbon Dioxide 26 mmol/L (22-29); Chloride 100 mmol/L (98-107); Glomerular Filtration Rate 45.8 mL/min (90-130); Glucose 242 mg/dL (65-115); Magnesium 1.6 mg/dL (1.7-2.3); Osmolality Calculated 296 mOsm/kg (285-295); Phosphorus 3.7 mg/dL (2.5-4.5); Potassium 4.3 mmol/L (3.5-5.1); Sodium 135 mmol/L (136-145)
[2023-11-15 04:34] LABS: Creatinine Clr Calc Pharmacy 55.8119
[2023-11-15] MEDS: ticagrelor 90 mg Tablet PO ×2 (06:02→22:34)
[2023-11-15] MEDS: atorvastatin 40 mg Tablet PO (06:02)
[2023-11-15] MEDS: levothyroxine 25 mcg Tablet PO (06:02)
[2023-11-15 06:19] LABS: Glucose Point of Care 219 mg/dL (70-110)
[2023-11-15] MEDS: enoxaparin 100 mg/mL Syringe SUBCUT (08:21)
[2023-11-15] MEDS: sennosides-docusate Tablet 1 TAB PO (08:22)
[2023-11-15] MEDS: aspirin 81 mg EC Tablet PO (08:22)
[2023-11-15] MEDS: insulin lispro 100 unit/1 mL SUBCUT ×2 (08:22→12:39)
[2023-11-15] MEDS: insulin glargine 100 units/1 mL 30 UNIT SUBCUT (08:22)
--- NOTE | 2023-11-15 09:32 | XACV_ITS ---
Exam Room: [facility] Ht: 160 cm Wt: 99 kg BSA: 2.15 m2 Gender: Female : 1960 Any Known Allergies: Ibuprofen Exam Priority: Routine Procedure(s): Procedure Description: Diagnostic procedure Procedure Description: PCI procedure Procedure Description: PTCA Procedure Description: Miscellaneous Procedure Description: Angio-Seal Procedure Description: Coronary Angiography Diagnostic Cath Status: Urgent Diagnostic Findings * INDICATION: Unstable angina. * Left Main has no significant disease. * Left Anterior Descending has patent prior stent. No significant stenosis. * Mid Circumflex: obstructive 60-70% in-stent restenosis, ERICK: 2 flow. * Distal Circumflex: 99% instent restenosis, ERICK: 2 flow. * Mid Right Coronary Artery: obstructive 70% in-stent restenosis, ERICK: 3 flow. * Posterior Descending Right: subtotal occlusion, ERICK: 3 flow. * Coronary angiography shows right dominance. PCI Status: Elective Interventional Findings * Procedure detail: * We engaged left main artery with XB 3.5 guide catheter. IV heparin was administered to obtain anticoagulation. * 0.014 run-through guidewire was used to cross the * left circumflex artery stenosis * and was put in distal vessel. * We dilated the distal left circumflex artery ISR with 2.5 x 12 mm NC balloon. This was followed by dilation with 2.25 x 12 mm semicompliant balloon at the distal edge of the stent. We then used 3.5 x 12 mm NC balloon to dilate severe in-stent restenosis of mid left circumflex artery. At this time final angiogram showed excellent stent expansion and ERICK-3 flow. We then turned attention to RCA and PDA. JR4 guide was used to engage RCA. Stenoses were crossed with a Runthrough wire. We dilated a small sized PDA with 2.25 x 12 mm semicompliant balloon. This improved flow significantly. Given small size of vessel we did not put a stent. Mid RCA stent was dilated with 3.5 x 12 mm NC balloon at high pressure. At this time final angiogram was performed that showed excellent stent expansion, ERICK-3 flow and no residual stenosis in RCA. PDA flow had improved but had residual stensis. As size of vessel was small we did not place a stent and will be medically managed. Patient left the [employer] in a stable condition.. * Mid Right Coronary Artery: 70% stenosis treated with a MDT NC EUPHORA RX [id number] BALLOON. 0% residual stenosis, ERICK: 3 flow. * Mid Circumflex: 60% stenosis treated with a MDT NC EUPHORA RX 3.17O68BY BALLOON. 0% residual stenosis, ERICK: 3 flow. * Distal Circumflex: 99% stenosis treated with a MDT NC EUPHORA RX 2.67O14XP BALLOON, and AB TREK 2.25X12 RX BALLOON. 0% residual stenosis, ERICK: 3 flow. * Posterior Descending Right: 99% stenosis treated with a AB TREK 2.25X12 RX BALLOON. 0% residual stenosis, ERICK: 3 flow. Conclusions 1. Severe in-stent restenosis of the mid and distal left circumflex artery stents s/p successful revascularization with balloon angioplasty. Severe ISR of mid RCA stent. S/p successful revascularization with balloon angioplasty. Severe stenosis of small caliber PDA s/p successful revascularization with balloon angioplasty. Stent not placed given small size of vessel. 2. Mid Right Coronary Artery was treated with a Balloon. 3. Mid Circumflex was treated with a Balloon. 4. Distal Circumflex was treated with a Balloon, and Balloon. 5. Posterior Descending Right was treated with a Balloon. Recommendations * Dual antiplatelet therapy with aspirin and plavix. * High intensity statin therapy. * Outpatient cardiology follow up in 2 weeks. Interventional RX Recommendation: PCI w/o planned CABG Diagnostic RX Recommendation: PCI w/o planned CABG Anticoagulation: Heparin Pressures Phase:Rest AO : 99 / 57 ( 77 ) @ 11:46:00 AM 102 / 60 ( 80 ) @ 11:49:00 AM 132 / 69 ( 97 ) @ 11:59:00 AM 114 / 58 ( 82 ) @ 12:11:00 PM 139 / 56 ( 88 ) @ 12:16:00 PM Clinical Evaluation EBL: 5mL-10mL Procedural Details Procedure Consent Obtained. Current Diagnosis : NSTEMI. Pre-Procedure Time Out. Identified patient by full name and date of as verbalized by the patient/guarantor. Does the consent match the physician's order: Yes. Accurate & Complete Informed Consent: Yes. Inpatient/Outpatient History & Physical on Chart: Yes. If H&P is completed, is and addenduem needed: No; If yes, is the addendum complete: N/A. Visualize and Verify Site with Patient/Guarantor: N/A. Relevant Radiology Images available: Yes. Pre-op teaching completed and patient verbalized understanding. The risks, benefits, and alternatives of sedation and/or procedure were discussed by physician. The patient agrees to continue. Procedure started. [facility] Clinical Fraility Score: 6: Moderately Frail. [employer] Indications: ACS > 24 hours. Chest Pain Symptom Assessment: Typical Angina Symptoms. Correct patient, site and procedure confirmed by cath team. Current diagnosis: NSTEMI. PERRLA. Strong, equal hand interventional radiology technologist bilaterally. Lungs clear x 5 lobes. IV Site on Arrival: 18 gauge in the right anticubital. IV Fluids: 0.9% NaCl at KVO. 0 mL infused prior to cath lab tech. Oxygen started at 2liters/min via nasal canula. bilateral groins was prepped with chloroprep then draped in the usual sterile fashion. Baseline sample Acquired. HR: 0 BPM. Physician arrived. Physician scrubbed in. Immediate Pre-Procedure Time Out. Correct Patient: Yes; Correct Procedure: Yes; Correct Site: Yes; Correct Patient Position: Yes; Correct Supplies: Yes; Dried Flammable Prep: Yes; Blood Products Available: N/A;. Lidocaine 1% infiltrated to the right groin. Arterial access obtained with micropuncture set. A 5 jamaican JL4 catheter in over wire. Multiple views taken of left coronary artery. Catheter removed over the standard wire. A 5 jamaican JR4 catheter in over wire. Multiple views taken of right coronary artery. Catheter removed over the standard wire. Physician review of cine films. 6 jamaican XB 3 guide catheter was inserted over the wire. Runthrough guidewire was advanced through the guide catheter to lesion in the mid Circ. Inflation number : 1 A MDT NC EUPHORA RX 2.78T46CY BALLOON was prepped and advanced across the Dist CX , then inflated to 12 RICHI for 0:18 seconds. Inflation number: 2 The MDT NC EUPHORA RX 2.42O27TK BALLOON was reinflated across the Dist CX, to 12 RICHI for 0:10 seconds. Balloon out. Inflation number : 3 A AB TREK 2.25X12 RX BALLOON was prepped and advanced across the Dist CX , then inflated to 8 RICHI for 0:18 seconds. Balloon out. Inflation number : 1 A MDT NC EUPHORA RX 3.09P03TH BALLOON was prepped and advanced across the Mid CX , then inflated to 16 RICHI for 0:18 seconds. Inflation number: 2 The MDT NC EUPHORA RX 3.87D69VY BALLOON was reinflated across the Mid CX, to 12 RICHI for 0:09 seconds. Balloon out. Results checked. Wire out. Guide catheter out. 6 jamaican JR 4 guide catheter was inserted over the wire. Runthrough guidewire was advanced through the guide catheter to lesion in the distal RCA. Inflation number: 1 The AB TREK 2.25X12 RX BALLOON was reinflated across the R PDA, to 8 RICHI for 0:10 seconds. Inflation number: 2 The AB TREK 2.25X12 RX BALLOON was reinflated across the R PDA, to 10 RICHI for 0:13 seconds. Inflation number: 3 The AB TREK 2.25X12 RX BALLOON was reinflated across the R PDA, to 12 RICHI for 0:14 seconds. Balloon out. Inflation number: 1 The MDT NC EUPHORA RX 3.20L76HR BALLOON was reinflated across the Mid RCA, to 22 RICHI for 0:19 seconds. Inflation number: 2 The MDT NC EUPHORA RX 3.31C17HO BALLOON was reinflated across the Mid RCA, to 22 RICHI for 0:15 seconds. Balloon out. Wire out. Results checked. Guide catheter out. A Right femoral angiogram was performed to determine safe placement of closure device. Lidocaine 1% infiltrated to the right groin. A Angio-Seal VIP ([facility]) was successful obtaining hemostatsis at the Right Femoral artery insertion site. Post Procedure: Pulses reassessed and unchanged. PERRLA. Strong, equal hand interventional radiology technologist bilaterally. No VTE prophylaxis required. Medication's Wasted: Nitro = 49.8 mg. Medication's Wasted: Heparin = 1000 units. Medication's Wasted: Other = Fentanyl 50 mcg. Total IV fluids: 90 mL. Complications: None. Post-op diagnosis: In-stent restonosis. PTCA of CX, RCA and RPDA. Estimated blood loss: 5mL-10mL. Vital chart was stopped. Responsiveness - Normal response to verbal stimuli; alert and oriented, PERRLA. Airway - Unaffected, no intervention required; spontaneous ventilation. Circulation: W/N/L, pulses unchanged. Nausea/Vomiting: No. Procedure completed. Patient transferred by bed to 1st floor. Access Site Site: Right Femoral artery Sheath Size: 6 Fr Hemostasis Method: Angio-Seal VIP ([facility]) Hemostasis Success: Successful Procedure Medications Start: 10:38 AM Stop: 10:38 AM Medication: Versed Amount: 1 mg Route: I.V. Start: 10:39 AM Stop: 10:39 AM Medication: Fentanyl Amount: 25 mcg Route: I.V. Start: 10:42 AM Stop: 10:42 AM Medication: Fentanyl Amount: 25 mcg Route: I.V. Start: 10:59 AM Stop: 10:59 AM Medication: Versed Amount: 1 mg Route: I.V. Start: 11:09 AM Stop: 11:09 AM Medication: Nitrogylcerin Amount: 200 mcg Route: I.C. I, the attending physician, have reviewed and verified all procedure medications. Yes, all medications given per verbal order History/Risk Factors Hypertension: Yes Dyslipidemia: Yes Peripheral Arterial Disease (PAD): No Myocardial Infarction (SC): No Obesity: Yes Renal Disease: No Prior Interventions PCI: Yes CABG: No Valve Surgery: No Date of PCI: 08/11/2020 Report Signatures Finalized by Jaiden Newell MD on 11/18/2023 10:07 PM
--- NOTE | 2023-11-15 09:41 | P.PN_ITS ---
Subjective 2 Subjective: Detail discussion with the patient regarding her creatinine, her risk of contrast-induced nephropathy and indication for angiogram, after thoughtful process and discussing with her sister she decided to go with the angiogram, Dr. Rodriguez was notified, plan for angiogram in place Patient stating that she had similar complaint last night around midnight and she is very concerned and keeps thinking about her heart condition Vitals/I&O/Wt Last Vital Signs Temp 97.9 F 11/15/23 07:26 Pulse 64 11/15/23 07:42 Resp 16 11/15/23 07:42 BP 133/59 11/15/23 07:26 Pulse Ox 95 11/15/23 07:42 O2 Del Method Room Air 11/15/23 07:42 11/14/23 11/15/23 11/15/23 22:59 06:59 14:59 Intake Total 120 / 120 200 / 320 Balance 120 / 120 200 / 320 Weight last 48 hrs Weight 99.337 kg Weight 98.685 kg Weight 95.254 kg Physical Exam 2 Narrative: She does not look fluid overloaded Euvolemic Awake and alert Nonpitting edema of legs Currently on room air Pleasant cooperative Hemodynamically stable Abdomen soft Pleasant cooperative Nonfocal neuroexam Data 11/15/23 03:39 11/15/23 03:39 A&P Assessment and plan (1) Depression with anxiety: (2) HTN (hypertension): Qualifiers: Hypertension type: essential hypertension Qualified Code(s): I10 - Essential (primary) hypertension (3) CHF (congestive heart failure): (4) Chest pain: Qualifiers: Chest pain type: other chest pain Qualified Code(s): R07.89 - Other chest pain (5) Non-ST elevation TN (NSTEMI): (6) Coronary artery disease due to type 2 diabetes mellitus: (7) Morbid obesity: (8) Acute kidney injury: (9) Chronic kidney disease (CKD): Qualifiers: Chronic kidney disease stage: stage 3 (moderate) Chronic kidney disease stage 3 subtype: stage 3a (GFR 45-59) Qualified Code(s): N18.31 - Chronic kidney disease, stage 3a Plan Plan for angiogram today I will keep her n.p.o. D-dimer unremarkable GIANCARLO related to mild CHF exacerbation Avoid nephrotoxic agents Patient remains full code Dr. Rodriguez notified Patient spoke with her sister as well Uncontrolled diabetes hemoglobin A1c is 10.3 Will continue insulin with consistent carb diet after angiogram Replenish magnesium Attestations 2 Medical Necessity Statement*: Possible discharge by tomorrow Coding Level of Care Code Acute Code for Chg Fwd Diagnoses Depression with anxiety F41.8 Essential hypertension I10 Hypertension type: essential hypertension CHF (congestive heart failure) I50.9 Other chest pain R07.89 Chest pain type: other chest pain Non-ST elevation TN (NSTEMI) I21.4 Coronary artery disease due to type 2 diabetes mellitus E11.59; I25.10 Morbid obesity E66.01 Acute kidney injury N17.9 Stage 3a chronic kidney disease N18.31 Chronic kidney disease stage: stage 3 (moderate) Chronic kidney disease stage 3 subtype: stage 3a (GFR 45-59)
[2023-11-15] MEDS: magnesium sulfate premix 1 GM/100 ML PIGGYBACK IV (10:08)
[2023-11-15] MEDS: diphenhydrAMINE 50 mg Capsule PO (10:08)
[2023-11-15] MEDS: sodium chloride 0.9% 1,000 ML 50 ML IV (10:09)
--- NOTE | 2023-11-15 10:30 | W.PM.OPSUD ---
Surgery/Procedure H&P Update DATE OF PROCEDURE: November 15, 2023 DATE H&P PERFORMED: 11/14/23 H&P UPDATE INFORMATION: I have reviewed H&P completed within last 30 days, I have examined patient prior to procedure and No changes to prior documentation PREOP DIAGNOSIS: Unstable angina PRIMARY INDICATION FOR PROCEDURE: Unstable angina PLANNED PROCEDURE: Left heart cath with possible percutaneous coronary intervention PATIENT REASSESSED PRIOR TO SEDATION, WITH NO CHANGE NOTED: Yes PHYSICAL EXAM: alert, oriented x 3, clear to auscultation bilaterally and regular rate & rhythm AIRWAY EVAL/ANESTHESIA PLAN: normal airway, ASA III, Local Anesthesia, Risks, benefits & alternatives of sedation and/or procedure discussed and Patient agrees to continue as planned ADDITIONAL INFORMATION: Moderate sedation
--- NOTE | 2023-11-15 10:40 | PC.NURSE ---
Patient went to mobile lab technician at 1030.
--- NOTE | 2023-11-15 12:17 | PC.NURSE ---
Patient returned from geophysical laboratory supervisor with a right groin angioseal at 1215. No hematoma noted.
[2023-11-15 12:20] LABS: Glucose Point of Care 177 mg/dL (70-110)
--- NOTE | 2023-11-15 12:42 | PM.MISC ---
Miscellaneous Note Purpose of Documentation: Brief procedure note Note: Patient has multiple stents in all 3 arteries of the heart. Coronary angiogram demonstrated severe in-stent restenosis of mid and distal left circumflex artery stent. Underwent successful revascularization with balloon angioplasty. Had severe in-stent restenosis of mid RCA stent. Underwent successful revascularization with balloon angioplasty. PDA is small to medium sized vessel. It was subtotally occluded at ostium. We performed balloon angioplasty. However given size of the vessel, we decided to not stent it. Continue dual antiplatelet therapy with aspirin and Brilinta. Close outpatient cardiology follow up.
[2023-11-15 17:16] LABS: Glucose Point of Care 130 mg/dL (70-110)
[2023-11-15 20:49] LABS: Glucose Point of Care 347 mg/dL (70-110)
[2023-11-15] MEDS: sodium chloride 0.9% 1,000 ML 75 ML IV (22:35)
[2023-11-15] MEDS: morphine IR 15 mg Tablet PO (22:40)
[2023-11-16 05:12] LABS: Basophils # 0.1 10^3/uL (0.0-0.1); Basophils % 0.5 %; Eosinophils # 1.4 10^3/uL (0.0-0.8); Eosinophils % 11.5 %; Hematocrit 33.9 % (36-47); Lymphocytes # 3.3 10^3/uL (0.8-4.8); Lymphocytes % 26.4 %; Mean Corpuscular HGB Conc 32.2 g/dL (30-55); Mean Corpuscular Hemoglobin 28.4 pg (27-33); Mean Corpuscular Volume 88.3 fl (85-98); Mean Platelet Volume 9.7 fL (7.4-10.4); Monocytes % 7.9 %; Neutrophils # 6.59 10^3/uL (1.8-7.7); Neutrophils % 53.3 %; Nucleated Red Blood Cells % 0 %; Platelet Count 335 10^3/cmm (157-399); Red Blood Count 3.84 10^6/uL (3.85-5.65); Red Cell Distribution Width 14.3 % (12.1-15.1); White Blood Count 12.36 10^3/uL (3.29-11.43)
[2023-11-16 05:31] LABS: Magnesium 1.8 mg/dL (1.7-2.3)
[2023-11-16 05:41] LABS: Anion Gap 13.3 (5-19); Blood Urea Nitrogen 28 mg/dL (8-23); Calcium 8.8 mg/dL (8.5-10.5); Carbon Dioxide 24 mmol/L (22-29); Chloride 101 mmol/L (98-107); Glomerular Filtration Rate 50.7 mL/min (90-130); Glucose 239 mg/dL (65-115); Osmolality Calculated 291 mOsm/kg (285-295); Potassium 4.3 mmol/L (3.5-5.1); Sodium 134 mmol/L (136-145)
[2023-11-16 05:42] LABS: Creatinine Clr Calc Pharmacy 61.1097
[2023-11-16 06:00] VITALS: PULSE 83; BMI 38.7
[2023-11-16 06:25] LABS: Glucose Point of Care 266 mg/dL (70-110)
[2023-11-16] MEDS: atorvastatin 40 mg Tablet PO (06:44)
[2023-11-16] MEDS: levothyroxine 25 mcg Tablet PO (06:44)
--- NOTE | 2023-11-16 06:58 | P.PN_ITS ---
<Statement entered by Denisse Rodriguez MD - 11/16/23 07:07> This is the progress note for 11/15/2023-the entry was made late Subjective 2 Subjective: Late entry- progress note for 11/14/2026 this patient had episodes of chest pain/left shoulder pain through the night. Initially I was planning to do a stress test to evaluate for any underlying coronary ischemia. But because of the ongoing chest pains, it does not be appropriate to go ahead with the cardiac catheterization. The patient wanted me to talk to her sister as well regarding the plan. The sister also is agreeable for us to do what ever is deemed appropriate. Medications: Medication Review Details: Current Medications Acetaminophen (Acetaminophen 500 Mg Tablet) 500 mg PO Q4H PRN PRN Reason: fever Last Admin: 11/15/23 02:18 Dose: 500 mg Al Hydrox/Mg Hydrox/Simethicone (Wavh-Otr-Ntqdrismk-Rachel 30 Ml Udc) 30 ml PO Q15M PRN PRN Reason: INDIGESTION Albuterol/Ipratropium (Ipratropium-Albuterol 3 Ml Neb) 3 ml INHALATION Q6H PRN PRN Reason: SHORTNESS OF BREATH Alprazolam (Alprazolam 0.5 Mg Tablet) 0.25 mg PO TID PRN PRN Reason: ANXIETY Aspirin (Aspirin 81 Mg Ec Tablet) 81 mg PO DAILY [facility] Last Admin: 11/15/23 08:22 Dose: 81 mg Atorvastatin Calcium (Atorvastatin 40 Mg Tablet) 40 mg PO DAILY@07 [facility] Last Admin: 11/16/23 06:44 Dose: 40 mg Dextrose (D5w) 500 mls @ 0 mls/hr IV ONCE PRN; Protocol PRN Reason: Adult Acute Hypoglycemia Prot Dextrose (D10w) 125 mls @ 750 mls/hr IV PRN PRN; Protocol PRN Reason: Adult Acute Hypoglycemia Nursing Protocol Dextrose (D10w) 250 mls @ 1,000 mls/hr IV PRN PRN; Protocol PRN Reason: Adult Acute Hypoglycemia Nursing Protocol Sodium Chloride (Sodium Chloride 0.9%) 1,000 mls @ 100 mls/hr IV .Q10H [facility] Last Admin: 11/15/23 22:35 Dose: 75 mls/hr Insulin Glargine (Insulin Glargine 100 Units/1 Ml) 30 unit SUBCUT DAILY [facility] Last Admin: 11/15/23 08:22 Dose: 30 unit Insulin Human Lispro (Insulin Lispro 100 Unit/1 Ml) 0 unit SUBCUT TIDWM [facility]; Protocol Last Admin: 11/15/23 17:38 Dose: Not Given Levothyroxine Sodium (Levothyroxine 25 Mcg Tablet) 25 mcg PO QAM [facility] Last Admin: 11/16/23 06:44 Dose: 25 mcg Magnesium Hydroxide (Magnesium Hydroxide 30 Ml Udc) 30 ml PO DAILY PRN PRN Reason: CONSTIPATION Morphine Sulfate (Morphine Ir 15 Mg Tablet) 15 mg PO Q6H PRN PRN Reason: MODERATE PAIN Last Admin: 11/15/23 22:40 Dose: 15 mg Naloxone HCl (Naloxone 0.4 Mg/Ml Sdv) 0.1 mg IVP Q2M PRN PRN Reason: RESPIRATORY RATE < 8/MIN Nitroglycerin (Nitroglycerin 0.4 Mg Sublingual Tablet) 0.4 mg SUBLINGUAL Q5M PRN PRN Reason: Chest Pain Ondansetron HCl (Ondansetron 2 Mg/Ml Sdv 2 Ml) 4 mg IVP Q6H PRN PRN Reason: NAUSEA AND VOMITING Senna/Docusate Sodium (Sennosides-Docusate Tablet) 1 tab PO DAILY [facility] Last Admin: 11/15/23 08:22 Dose: 1 tab Temazepam (Temazepam 15 Mg Capsule) 15 mg PO BEDTIME PRN PRN Reason: INSOMNIA Vitals/I&O/Wt Last Vital Signs Temp 96.9 F L 11/15/23 16:00 Pulse 83 11/16/23 06:00 Resp 19 H 11/15/23 22:40 BP 163/84 11/15/23 16:00 Pulse Ox 95 11/15/23 22:40 O2 Del Method Room Air 11/15/23 16:00 11/15/23 11/15/23 11/16/23 14:59 22:59 06:59 Intake Total 141.667 / 141.667 980 / 5264.834 0849 / 2256.667 Balance 141.667 / 141.667 980 / 6480.872 9573 / 2256.667 Weight last 48 hrs Weight 219 lb Weight 219 lb Weight 217 lb 9 oz Weight 210 lb Physical Exam 2 Narrative: GENERAL: The patient is alert and oriented times three. Not in any acute distress. Moderately obese HEENT: No significant pallor, icterus or lymphadenopathy.Oral cavity: There are no mucous membrane lesions. NECK: Trachea appears to be central. No masses noted. No JVD or thyromegaly appreciated. RESPIRATORY: Chest is symmetrical. No intercostals muscle retraction or any accessory muscle activation. There is no chest wall tenderness. Breath sounds are heard bilaterally. No rales or rhonchi heard. No evidence of any consolidation. BREASTS: Deferred. HEART: The heart sounds are normal. No S3 or S4. Short systolic murmur in the lower sternal border. No diastolic murmurs.. No pericardial rub ABDOMEN: No vessel pulsations or distention. No tenderness. No organomegaly appreciated. Bowel sounds are normally heard. : Deferred. RECTAL: Deferred. LYMPHATIC: No lymphadenopathy noted in the neck. EXTREMITIES: 1-2+ chronic edema MUSCULOSKELETAL: No acute joint deformities or swelling SKIN: There are no significant rashes or ecchymosis NEUROPSYCHIATRIC: The patient is alert and oriented x3. Appears to be in a good mood. No tremors or rigidity noted. Data 11/16/23 04:30 11/16/23 04:30 Other Labs: The BUN was 36 with creatinine 1.2 on 11/15/2023 Laboratory Last Values WBC 12.36 10^3/uL (3.29-11.43) H 11/16/23 04:30 RBC 3.84 10^6/uL (3.85-5.65) L 11/16/23 04:30 Hgb 10.90 g/dL (11.27-16.99) L 11/16/23 04:30 Hct 33.9 % (36-47) L 11/16/23 04:30 MCV 88.3 fl (85-98) 11/16/23 04:30 MCH 28.4 pg (27-33) 11/16/23 04:30 MCHC 32.2 g/dL (30-55) 11/16/23 04:30 RDW 14.3 % (12.1-15.1) 11/16/23 04:30 Plt Count 335 10^3/cmm (157-399) 11/16/23 04:30 MPV 9.7 fL (7.4-10.4) 11/16/23 04:30 Neut % (Auto) 53.3 % 11/16/23 04:30 Lymph % (Auto) 26.4 % 11/16/23 04:30 [place] % (Auto) 7.9 % 11/16/23 04:30 Eos % (Auto) 11.5 % 11/16/23 04:30 Baso % (Auto) 0.5 % 11/16/23 04:30 Neut # (Auto) 6.59 10^3/uL (1.8-7.7) 11/16/23 04:30 Lymph # (Auto) 3.3 10^3/uL (0.8-4.8) 11/16/23 04:30 [place] # (Auto) 1.0 10^3/uL (0.2-0.9) H 11/16/23 04:30 Eos # (Auto) 1.4 10^3/uL (0.0-0.8) H 11/16/23 04:30 Baso # (Auto) 0.1 10^3/uL (0.0-0.1) 11/16/23 04:30 Nucleated RBC % (auto) 0 % 11/16/23 04:30 Nucleated RBCs # 0.0 /100WBC 11/16/23 04:30 D-Dimer 0.98 ug/mLFEU (0-0.59) H 11/14/23 15:55 Sodium 134 mmol/L (136-145) L 11/16/23 04:30 Potassium 4.3 mmol/L (3.5-5.1) 11/16/23 04:30 Chloride 101 mmol/L (98-107) 11/16/23 04:30 Carbon Dioxide 24 mmol/L (22-29) 11/16/23 04:30 Anion Gap 13.3 (5-19) 11/16/23 04:30 BUN 28 mg/dL (8-23) H 11/16/23 04:30 Creatinine 1.1 mg/dL (0.5-0.9) H 11/16/23 04:30 GFR Calculation 50.7 mL/min (90-130) L 11/16/23 04:30 Glucose 239 mg/dL (65-115) H 11/16/23 04:30 POC Glucose 266 mg/dL (70-110) H 11/16/23 06:20 Estimat Average Glucose 249 11/14/23 14:37 Hemoglobin A1c 10.3 % (4.0-6.0) H 11/14/23 14:37 Calculated Osmolality 291 mOsm/kg (285-295) 11/16/23 04:30 Calcium 8.8 mg/dL (8.5-10.5) 11/16/23 04:30 Phosphorus 3.7 mg/dL (2.5-4.5) 11/15/23 03:39 Magnesium 1.8 mg/dL (1.7-2.3) 11/16/23 04:30 Total Bilirubin 0.2 mg/dL (0.15-1.2) 11/14/23 14:37 AST 8 U/L (0-32) 11/14/23 14:37 ALT 8 U/L (0-33) 11/14/23 14:37 Alkaline Phosphatase 88 U/L (35-105) 11/14/23 14:37 Troponin T Baseline 90 ng/L (0-10) H 11/14/23 14:37 Troponin T 120 Minute 93.60 ng/L (0-10) H 11/14/23 16:11 Delta Troponin T 3.60 ABS# (0-10) 11/14/23 16:11 Troponin T Hi Sens 6Hr 114.4 ng/L (0-10) H 11/14/23 20:42 Troponin T Hi Sens 6Hr Delta 24.4 ng/L (0-12) H* 11/14/23 20:42 C-Reactive Protein 3.8 mg/L (0.0-4.9) 11/15/23 03:39 NT-Pro-B Natriuret Pep 852 pg/mL (0-125) H 11/14/23 14:37 Total Protein 5.8 g/dL (6.6-8.7) L 11/14/23 14:37 Albumin 3.3 g/dL (3.5-5.2) L 11/14/23 14:37 Globulin 2.5 g/dL (1.3-4.6) 11/14/23 14:37 Vitamin B12 379 pg/mL (232-1245) 11/14/23 14:37 Digoxin 1.3 ng/mL (0.6-1.2) H 11/14/23 14:37 A&P Assessment and plan (1) Chest pain: The patient symptoms are suggestive of unstable angina. At this point, it was thought to be appropriate to go ahead with a cardiac catheterization. This was discussed with the patient in detail. The patient is totally in agreement. She understands very well the risk of contrast-induced nephropathy. She is willing to take the risk. Qualifiers: Chest pain type: other chest pain Qualified Code(s): R07.89 - Other chest pain (2) Atherosclerotic heart disease of [place] coronary artery with other forms of angina pectoris: Patient is known to have atherosclerotic heart disease and multiple PCI's in the past. Her PCI's were performed at the [facility] in [facility]. The most recent intervention was done here in this hospital She apparently had a severe spasm in the right radial artery. So it was done through the right groin (3) Elevated troponin: The troponin T's are still trending down. (4) Dyslipidemia: Continue on the current medications. (5) Type 2 diabetes mellitus with diabetic polyneuropathy: Appropriate treatment of diabetes may be continued. Qualifiers: Diabetes mellitus intermediate project manager insulin use: with intermediate project manager use Qualified Code(s): E11.42 - Type 2 diabetes mellitus with diabetic polyneuropathy; Z79.4 - [employer] (current) use of insulin (6) Chronic kidney disease (CKD): Patient is a kidney function seems to be stable. May continue on the current measures. Qualifiers: Chronic kidney disease stage: stage 3 (moderate) Chronic kidney disease stage 3 subtype: stage 3a (GFR 45-59) Qualified Code(s): N18.31 - Chronic kidney disease, stage 3a (7) HTN (hypertension): Blood pressures are stage II. Will optimize antihypertensive medications. Qualifiers: Hypertension type: essential hypertension Qualified Code(s): I10 - Essential (primary) hypertension Plan Other problems are History of pulmonary embolism History of DVT Obstructive sleep apnea Obesity The Myocardial perfusion imaging was canceled. Patient will be carefully hydrated. I also asked Dr. Newell, my colleague to perform the procedure because of the scheduling conflict that I have. This was discussed with the patient for which she is agreeable Will continue on the current management. Attestations 2 Medical Necessity Statement*: Patient requires continued hospital stay for close monitoring and further management Coding Level of Care Code 23568 Diagnoses Other chest pain R07.89 Chest pain type: other chest pain Atherosclerotic heart disease of [place] coronary artery with other forms of angina pectoris I25.118 Elevated troponin R77.8 Dyslipidemia E78.5 Type 2 diabetes mellitus with diabetic polyneuropathy, with long-term current use of insulin E11.42; Z79.4 Diabetes mellitus skilled nursing insulin use: with skilled nursing use Stage 3a chronic kidney disease N18.31 Chronic kidney disease stage: stage 3 (moderate) Chronic kidney disease stage 3 subtype: stage 3a (GFR 45-59) Essential hypertension I10 Hypertension type: essential hypertension
[2023-11-16 07:07] VITALS: BP 139/60; PULSE 84; RESP 17; TEMP 36.8; O2SAT 97
--- NOTE | 2023-11-16 07:07 | P.PN_ITS ---
Subjective 2 Subjective: Patient underwent the left heart catheterization with coronary angiogram yesterday. She was found to have a high-grade in-stent stenosis in the circumflex artery and the right coronary artery. She underwent PCI of these lesions. Medications: Medication Review Details: Current Medications Acetaminophen (Acetaminophen 500 Mg Tablet) 500 mg PO Q4H PRN PRN Reason: fever Last Admin: 11/15/23 02:18 Dose: 500 mg Al Hydrox/Mg Hydrox/Simethicone (Xgth-Bgo-Qjudsruki-Rachel 30 Ml Udc) 30 ml PO Q15M PRN PRN Reason: INDIGESTION Albuterol/Ipratropium (Ipratropium-Albuterol 3 Ml Neb) 3 ml INHALATION Q6H PRN PRN Reason: SHORTNESS OF BREATH Alprazolam (Alprazolam 0.5 Mg Tablet) 0.25 mg PO TID PRN PRN Reason: ANXIETY Aspirin (Aspirin 81 Mg Ec Tablet) 81 mg PO DAILY [facility] Last Admin: 11/15/23 08:22 Dose: 81 mg Atorvastatin Calcium (Atorvastatin 40 Mg Tablet) 40 mg PO DAILY@07 [facility] Last Admin: 11/16/23 06:44 Dose: 40 mg Dextrose (D5w) 500 mls @ 0 mls/hr IV ONCE PRN; Protocol PRN Reason: Adult Acute Hypoglycemia Prot Dextrose (D10w) 125 mls @ 750 mls/hr IV PRN PRN; Protocol PRN Reason: Adult Acute Hypoglycemia Nursing Protocol Dextrose (D10w) 250 mls @ 1,000 mls/hr IV PRN PRN; Protocol PRN Reason: Adult Acute Hypoglycemia Nursing Protocol Sodium Chloride (Sodium Chloride 0.9%) 1,000 mls @ 100 mls/hr IV .Q10H [facility] Last Admin: 11/15/23 22:35 Dose: 75 mls/hr Insulin Glargine (Insulin Glargine 100 Units/1 Ml) 30 unit SUBCUT DAILY [facility] Last Admin: 11/15/23 08:22 Dose: 30 unit Insulin Human Lispro (Insulin Lispro 100 Unit/1 Ml) 0 unit SUBCUT TIDWM [facility]; Protocol Last Admin: 11/15/23 17:38 Dose: Not Given Levothyroxine Sodium (Levothyroxine 25 Mcg Tablet) 25 mcg PO QAM [facility] Last Admin: 11/16/23 06:44 Dose: 25 mcg Magnesium Hydroxide (Magnesium Hydroxide 30 Ml Udc) 30 ml PO DAILY PRN PRN Reason: CONSTIPATION Morphine Sulfate (Morphine Ir 15 Mg Tablet) 15 mg PO Q6H PRN PRN Reason: MODERATE PAIN Last Admin: 11/15/23 22:40 Dose: 15 mg Naloxone HCl (Naloxone 0.4 Mg/Ml Sdv) 0.1 mg IVP Q2M PRN PRN Reason: RESPIRATORY RATE < 8/MIN Nitroglycerin (Nitroglycerin 0.4 Mg Sublingual Tablet) 0.4 mg SUBLINGUAL Q5M PRN PRN Reason: Chest Pain Ondansetron HCl (Ondansetron 2 Mg/Ml Sdv 2 Ml) 4 mg IVP Q6H PRN PRN Reason: NAUSEA AND VOMITING Senna/Docusate Sodium (Sennosides-Docusate Tablet) 1 tab PO DAILY [facility] Last Admin: 11/15/23 08:22 Dose: 1 tab Temazepam (Temazepam 15 Mg Capsule) 15 mg PO BEDTIME PRN PRN Reason: INSOMNIA Ticagrelor (Ticagrelor 90 Mg Tablet) 90 mg PO BID@ [facility] Last Admin: 11/15/23 22:34 Dose: 90 mg Vitals/I&O/Wt Last Vital Signs Temp 96.9 F L 11/15/23 16:00 Pulse 83 11/16/23 06:00 Resp 19 H 11/15/23 22:40 BP 163/84 11/15/23 16:00 Pulse Ox 95 11/15/23 22:40 O2 Del Method Room Air 11/15/23 16:00 11/15/23 11/16/23 11/16/23 22:59 06:59 14:59 Intake Total 980 / 1411.765 9628 / 2256.667 Balance 980 / 1464.496 1018 / 2256.667 Weight last 48 hrs Weight 219 lb Weight 219 lb Weight 217 lb 9 oz Weight 210 lb Physical Exam 2 Narrative: GENERAL: The patient is alert and oriented times three. Not in any acute distress. Moderately obese HEENT: No significant pallor, icterus or lymphadenopathy.Oral cavity: There are no mucous membrane lesions. NECK: Trachea appears to be central. No masses noted. No JVD or thyromegaly appreciated. RESPIRATORY: Chest is symmetrical. No intercostals muscle retraction or any accessory muscle activation. There is no chest wall tenderness. Breath sounds are heard bilaterally. No rales or rhonchi heard. No evidence of any consolidation. BREASTS: Deferred. HEART: The heart sounds are normal. No S3 or S4. Short systolic murmur in the lower sternal border. No diastolic murmurs.. No pericardial rub ABDOMEN: No vessel pulsations or distention. No tenderness. No organomegaly appreciated. Bowel sounds are normally heard. : Deferred. RECTAL: Deferred. LYMPHATIC: No lymphadenopathy noted in the neck. EXTREMITIES: 1-2+ chronic edema MUSCULOSKELETAL: No acute joint deformities or swelling SKIN: There are no significant rashes or ecchymosis NEUROPSYCHIATRIC: The patient is alert and oriented x3. Appears to be in a good mood. No tremors or rigidity noted. Data 11/16/23 04:30 11/16/23 04:30 Other data: Cardiac catheterization findings done on 11/15/2023 Left Main has no significant disease. * Left Anterior Descending has patent prior stent. No significant stenosis. * Mid Circumflex: obstructive 60-70% in-stent restenosis, ERICK: 2 flow. * Distal Circumflex: 99% instent restenosis, ERICK: 2 flow. * Mid Right Coronary Artery: obstructive 70% in-stent restenosis, ERICK: 3 flow. * Posterior Descending Right: subtotal occlusion, ERICK: 3 flow. * Coronary angiography shows right dominance. A&P Assessment and plan (1) Chest pain: Patient status post cardiac catheterization. Underwent PCI of the circumflex artery lesion. Currently is asymptomatic. May continue on the current medications. Qualifiers: Chest pain type: other chest pain Qualified Code(s): R07.89 - Other chest pain (2) Atherosclerotic heart disease of [place] coronary artery with other forms of angina pectoris: Please refer the angiogram findings as mentioned above. Currently seems to be stable (3) Elevated troponin: Most likely from the non-ST elevation myocardial infarction (4) Dyslipidemia: Continue on the current medications. (5) Type 2 diabetes mellitus with diabetic polyneuropathy: Appropriate treatment of diabetes may be continued. Qualifiers: Diabetes mellitus intermediate manager insulin use: with intermediate manager use Qualified Code(s): E11.42 - Type 2 diabetes mellitus with diabetic polyneuropathy; Z79.4 - [facility] (current) use of insulin (6) Chronic kidney disease (CKD): Patient is a kidney function seems to be stable. May continue on the current measures. The creatinine is 1.1 today Qualifiers: Chronic kidney disease stage: stage 3 (moderate) Chronic kidney disease stage 3 subtype: stage 3a (GFR 45-59) Qualified Code(s): N18.31 - Chronic kidney disease, stage 3a (7) HTN (hypertension): Blood pressures are stage II. Will optimize antihypertensive medications. Qualifiers: Hypertension type: essential hypertension Qualified Code(s): I10 - Essential (primary) hypertension Plan Other problems are History of pulmonary embolism History of DVT Obstructive sleep apnea Obesity If the patient continues to remain stable, may be discharged home today. Patient will be seen at [facility] in 1 to 2 weeks. Patient will be seen by Dr. Eugene in 1 month Patient is advised to continue the medications as mentioned above. The importance of compliance to diet, medications and exercise were discussed. In the event of the patient developing chest pain ,unusual palpitations or any new symptoms, is advised to contact me or come to the hospital. Attestations 2 Medical Necessity Statement*: Possible discharge home today Coding Level of Care Code 92098 Diagnoses Other chest pain R07.89 Chest pain type: other chest pain Atherosclerotic heart disease of [place] coronary artery with other forms of angina pectoris I25.118 Elevated troponin R77.8 Dyslipidemia E78.5 Type 2 diabetes mellitus with diabetic polyneuropathy, with long-term current use of insulin E11.42; Z79.4 Diabetes mellitus intermediate manager insulin use: with long-term use Stage 3a chronic kidney disease N18.31 Chronic kidney disease stage: stage 3 (moderate) Chronic kidney disease stage 3 subtype: stage 3a (GFR 45-59) Essential hypertension I10 Hypertension type: essential hypertension
[2023-11-16] MEDS: ticagrelor 90 mg Tablet PO (07:30)
[2023-11-16] MEDS: insulin lispro 100 unit/1 mL SUBCUT (07:30)
--- NOTE | 2023-11-16 08:02 | PM.DCS ---
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: Status: Acute (3) Elevated troponin: Status: Acute (4) Dyslipidemia: Status: Acute (5) Type 2 diabetes mellitus with diabetic polyneuropathy: Status: Acute Qualifiers: Diabetes mellitus competitive shopper insulin use: with competitive shopper use Qualified Code(s): E11.42 - Type 2 diabetes mellitus with diabetic polyneuropathy; Z79.4 - cia agent (current) use of insulin (6) Chronic kidney disease (CKD): Status: Chronic Qualifiers: Chronic kidney disease stage: stage 3 (moderate) Chronic kidney disease stage 3 subtype: stage 3a (GFR 45-59) Qualified Code(s): N18.31 - Chronic kidney disease, stage 3a (7) HTN (hypertension): Status: Acute Qualifiers: Hypertension type: essential hypertension Qualified Code(s): I10 - Essential (primary) hypertension Reason for Visit Reason for Visit: Chest pain Hospital Course Hospital Course 62-year-old female with history of established coronary disease presented to the hospital with chief complaint of left shoulder pain, she was diagnosed with non-STEMI with high troponins, she was put on ACS protocol with aspirin and Brilinta she was already taking dual antiplatelet therapy at [facility], patient went for coronary angiogram, balloon angioplasty was done which relieved her symptoms. Patient has multiple stents in all 3 arteries of the heart. Coronary angiogram demonstrated severe in-stent restenosis of mid and distal left circumflex artery stent. Underwent successful revascularization with balloon angioplasty. Had severe in-stent restenosis of mid RCA stent. Underwent successful revascularization with balloon angioplasty. PDA is small to medium sized vessel. It was subtotally occluded at ostium. We performed balloon angioplasty. However given size of the vessel, we decided to not stent it. Patient to resume dual antibiotic therapy with close outpatient cardiology follow-up Creatinine has remained stable She will be discharged back to [place] with stable hemodynamics. She has mild leukocytosis, no active signs of infection, x-ray clear, she does have history of recurrent UTI We have decided to discontinue her digoxin level was 1.3 with her underlying chronic kidney disease it would not be resumed Echo was done before angiogram Normal left ventricular size . LV ejection fraction around 45 % (visual).mild left ventricular hypertrophy. Diffuse hypokinesia of the inferolateral wall segment. Grade I/IV diastolic dysfunction (abnormal relaxation filling pattern), normal to mildly elevated filling pressures. Mild mitral annular calcification. Thickened mitral valve. Mild mitral valve regurgitation. Calcification in the right coronary cusp. Thickened aortic valve. There are no intracardiac masses. There is no pericardial effusion. Compared to the study from 02/20/2023, the wall motion abnormality appears to be new Physical Exam Narrative: Awake and alert GCS 15 Currently on room air Hemodynamically stable [facility] Discharge Data Studies Completed and Pending Completed Studies During Hospitalization Category Date Time Status XR chest 1V portable [id number] Urgent Exams 11/14/23 14:07 Completed CV. echo complete* [id number] Routine Ultrasound 11/14/23 17:34 Completed Pending at discharge Category Date Time Status ENGINE DESIGNER request for service Routine Exams 11/15/23 09:32 Ordered Sestamibi Stress Test Request Routine Exams 11/16/23 06:00 Ordered Radiology Impressions Chest X-Ray 11/14/23 14:07 IMPRESSION: No acute findings. Laboratory Results WBC 12.36 10^3/uL (3.29-11.43) H 11/16/23 04:30 RBC 3.84 10^6/uL (3.85-5.65) L 11/16/23 04:30 Hgb 10.90 g/dL (11.27-16.99) L 11/16/23 04:30 Hct 33.9 % (36-47) L 11/16/23 04:30 MCV 88.3 fl (85-98) 11/16/23 04:30 MCH 28.4 pg (27-33) 11/16/23 04:30 MCHC 32.2 g/dL (30-55) 11/16/23 04:30 RDW 14.3 % (12.1-15.1) 11/16/23 04:30 Plt Count 335 10^3/cmm (157-399) 11/16/23 04:30 MPV 9.7 fL (7.4-10.4) 11/16/23 04:30 Neut % (Auto) 53.3 % 11/16/23 04:30 Lymph % (Auto) 26.4 % 11/16/23 04:30 Eagle % (Auto) 7.9 % 11/16/23 04:30 Eos % (Auto) 11.5 % 11/16/23 04:30 Baso % (Auto) 0.5 % 11/16/23 04:30 Neut # (Auto) 6.59 10^3/uL (1.8-7.7) 11/16/23 04:30 Lymph # (Auto) 3.3 10^3/uL (0.8-4.8) 11/16/23 04:30 Eagle # (Auto) 1.0 10^3/uL (0.2-0.9) H 11/16/23 04:30 Eos # (Auto) 1.4 10^3/uL (0.0-0.8) H 11/16/23 04:30 Baso # (Auto) 0.1 10^3/uL (0.0-0.1) 11/16/23 04:30 Nucleated RBC % (auto) 0 % 11/16/23 04:30 Nucleated RBCs # 0.0 /100WBC 11/16/23 04:30 D-Dimer 0.98 ug/mLFEU (0-0.59) H 11/14/23 15:55 Sodium 134 mmol/L (136-145) L 11/16/23 04:30 Potassium 4.3 mmol/L (3.5-5.1) 11/16/23 04:30 Chloride 101 mmol/L (98-107) 11/16/23 04:30 Carbon Dioxide 24 mmol/L (22-29) 11/16/23 04:30 Anion Gap 13.3 (5-19) 11/16/23 04:30 BUN 28 mg/dL (8-23) H 11/16/23 04:30 Creatinine 1.1 mg/dL (0.5-0.9) H 11/16/23 04:30 GFR Calculation 50.7 mL/min (90-130) L 11/16/23 04:30 Glucose 239 mg/dL (65-115) H 11/16/23 04:30 POC Glucose 266 mg/dL (70-110) H 11/16/23 06:20 Estimat Average Glucose 249 11/14/23 14:37 Hemoglobin A1c 10.3 % (4.0-6.0) H 11/14/23 14:37 Calculated Osmolality 291 mOsm/kg (285-295) 11/16/23 04:30 Calcium 8.8 mg/dL (8.5-10.5) 11/16/23 04:30 Phosphorus 3.7 mg/dL (2.5-4.5) 11/15/23 03:39 Magnesium 1.8 mg/dL (1.7-2.3) 11/16/23 04:30 Total Bilirubin 0.2 mg/dL (0.15-1.2) 11/14/23 14:37 AST 8 U/L (0-32) 11/14/23 14:37 ALT 8 U/L (0-33) 11/14/23 14:37 Alkaline Phosphatase 88 U/L (35-105) 11/14/23 14:37 Troponin T Baseline 90 ng/L (0-10) H 11/14/23 14:37 Troponin T 120 Minute 93.60 ng/L (0-10) H 11/14/23 16:11 Delta Troponin T 3.60 ABS# (0-10) 11/14/23 16:11 Troponin T Hi Sens 6Hr 114.4 ng/L (0-10) H 11/14/23 20:42 Troponin T Hi Sens 6Hr Delta 24.4 ng/L (0-12) H* 11/14/23 20:42 C-Reactive Protein 3.8 mg/L (0.0-4.9) 11/15/23 03:39 NT-Pro-B Natriuret Pep 852 pg/mL (0-125) H 11/14/23 14:37 Total Protein 5.8 g/dL (6.6-8.7) L 11/14/23 14:37 Albumin 3.3 g/dL (3.5-5.2) L 11/14/23 14:37 Globulin 2.5 g/dL (1.3-4.6) 11/14/23 14:37 Vitamin B12 379 pg/mL (232-1245) 11/14/23 14:37 Digoxin 1.3 ng/mL (0.6-1.2) H 11/14/23 14:37 Vitals Last Vital Signs Temp 98.2 F 11/16/23 07:07 Pulse 84 11/16/23 07:07 Resp 17 11/16/23 07:07 BP 139/60 11/16/23 07:07 Pulse Ox 97 11/16/23 07:07 O2 Del Method Room Air 11/16/23 07:07 Discharge Plan Discharge Patient Disposition: Xfer SNF Condition: Stable Prescriptions: New amoxicillin-pot clavulanate 875-125 mg tablet 1 tab PO BID Qty: 10 0RF Continued (DME) walker with seat and brakes See Rx Instructions .Route .MEDSUPPLY Qty: 1 0RF Rx Instructions: As directed (DME) InPen (for Humalog) Insulin Pen See Rx Instructions .Route Qty: 150 0RF Rx Instructions: qid to inject insulin (DME) diabetic shoes and inserts See Rx Instructions .Route .MEDSUPPLY Qty: 1 0RF Rx Instructions: As directed (DME) lancets [BD Ultra Fine Lancets] 33 gauge misc See Rx Instructions .Route Qty: 100 1RF Rx Instructions: As directed (DME) insulin syringe-needle U-100 [BD Veo Insulin Syringe UF] 1/2 mL 31 gauge x 15/64 syringe See Rx Instructions .ROUTE .MEDSUPPLY Qty: 100 2RF Rx Instructions: As directed pantoprazole 40 mg tablet,delayed release (DR/EC) 40 mg PO QAM insulin glargine [Lantus Solostar U-100 Insulin] 100 unit/mL (3 mL) insulin pen 32 unit SUBCUT QAM ondansetron HCl 4 mg tablet 4 mg PO BID PRN (Reason: Nausea) hydrocodone-acetaminophen 10-325 mg tablet 1 tab PO Q6H PRN (Reason: Pain, Moderate) Ozempic 0.25 mg or 0.5 mg (2 mg/3 mL) pen injector 0.5 mg SUBCUT Q7D tamsulosin 0.4 mg capsule 0.4 mg PO BEDTIME@22 ropinirole 0.5 mg tablet 0.5 mg PO BEDTIME@22 Qty: 30 2RF (DME) oxygen tubing See Rx Instructions .Route .MEDSUPPLY Qty: 1 0RF Rx Instructions: [facility]) ASO to RIGHT See Rx Instructions .Route .MEDSUPPLY Qty: 1 0RF Rx Instructions: As directed ([facility]) wheel-chair with foot rest See Rx Instructions .Route .MEDSUPPLY Qty: 1 0RF Rx Instructions: As directed by HOME levothyroxine 25 mcg capsule 25 mcg PO QAM sertraline [Zoloft] 25 mg tablet 25 mg PO BEDTIME trazodone 50 mg tablet 50 mg PO BEDTIME (DME) Accu-Chek Guide test strips Strip See Rx Instructions .Route Qty: 100 5RF Rx Instructions: As directed; to test 5 x daily ([facility]) Incontinence Supplies See Rx Instructions .Route .MEDSUPPLY Qty: 1 0RF Rx Instructions: As directed triamterene-hydrochlorothiazid 37.5-25 mg tablet 2 tab PO DAILY Qty: 30 2RF calcium carbonate [Tums] 200 mg calcium (500 mg) Tablet,Chewable 1,000 mg PO DAILY PRN (Reason: Stomach Upset) nitroglycerin [Nitrostat] 0.4 mg Tablet, Sublingual 0.4 mg SUBLINGUAL Q5M PRN (Reason: Chest Pain) Rx Instructions: do not exceed 3 doses per episode atorvastatin 40 mg tablet 40 mg PO DAILY@07 potassium chloride 10 mEq tablet extended release 10 meq PO DAILY@07 cholecalciferol (vitamin D3) 1,250 mcg (50,000 unit) capsule 50,000 unit PO Q7D Rx Instructions: Takes on Fridays isosorbide mononitrate 30 mg tablet extended release 24 hr 30 mg PO DAILY Qty: 90 0RF bupropion HCl 200 mg tablet sustained-release 12 hr 200 mg PO BID insulin lispro [Humalog KwikPen Insulin] 100 unit/mL insulin pen 29 sliding scale dose SUBCUT TID metoprolol succinate 50 mg tablet extended release 24 hr 75 mg PO DAILY acetaminophen 650 mg Tablet Extended Release 1,300 mg PO Q8H PRN (Reason: Pain) Milk of Magnesia 400 mg/5 mL Suspension 30 ml PO DAILY PRN (Reason: Constipation) aspirin 81 mg Tablet,Delayed Release (Dr/Ec) 81 mg PO DAILY@07 Qty: 60 0RF Brilinta 90 mg tablet 90 mg PO BID@ Qty: 120 0RF Held metformin 1,000 mg tablet 1,000 mg PO DAILY Hold Instructions: Resume on 02/27/23. Discontinued digoxin 125 mcg (0.125 mg) tablet 125 mcg PO DAILY@12 buspirone 15 mg tablet 15 mg PO BID Discharge Orders: Discharge Order (Routine); Ordered 11/16/23 Ordered By: Renay Ramírez Referrals: Niko Jerez MD [Primary Care Provider] - Farrah Smith FNP [Nurse Practitioner] - Discharge Diet: Cardiac and Diabetic Patient Instructions: Heart Failure (DC), Coronary Angioplasty (DC), CHF Stoplight, Post Angiogram Home Care Instructions, Post Heart Attack Stoplight Discharge Attestations Time Spent in Discharge Care*: greater than 30 min Status at Discharge: Cognitive status at discharge: cognitively intact, Behavioral status at discharge: cooperative, Quality Metrics Clinical Quality Measures [ No reported AMI, CVA or VTE this stay] Coding Level of Care Code Acute Code for Chg Fwd Diagnoses Other chest pain R07.89 Chest pain type: other chest pain 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
[2023-11-16] MEDS: insulin glargine 100 units/1 mL 30 UNIT SUBCUT (09:54)
[2023-11-16] MEDS: sennosides-docusate Tablet 1 TAB PO (09:54)
[2023-11-16] MEDS: aspirin 81 mg EC Tablet PO (09:54)
[2023-11-16 10:00] VITALS: PULSE 62; RESP 16; O2SAT 94
[2023-11-16 11:43] LABS: Glucose Point of Care 182 mg/dL (70-110)
== END 2023-11-16 13:08 | disposition skilled nursing facility (03) | DRG 250 ==
LOC: ER 15:36 → CSU 17:05
PROVIDERS: Internal Medicine; Admitting Provider Internal Medicine; Emergency Provider Physician Assistant; PCP Internal Medicine; Visit Provider Internal Medicine
PROC: 02723ZZ Dilation of Coronary Artery, Three Arteries, Percutaneous Approach (ICD-10-PCS; principal; 2023-11-15 10:00)
PROC: 02723ZZ Dilation of Coronary Artery, Three Arteries, Percutaneous Approach (ICD-10-PCS; 2023-11-15 10:00)
DX: T82.855A Stenosis of coronary artery stent, initial encounter (principal); I21.4 Non-ST elevation (NSTEMI) myocardial infarction; I50.31 Acute diastolic (congestive) heart failure; I13.0 Hypertensive heart and chronic kidney disease with heart failure and stage 1 through stage 4 chronic kidney disease, or unspecified chronic kidney disease; N17.9 Acute kidney failure, unspecified; Y71.8 Miscellaneous cardiovascular devices associated with adverse incidents, not elsewhere classified; E78.5 Hyperlipidemia, unspecified; M81.0 Age-related osteoporosis without current pathological fracture; E66.01 Morbid (severe) obesity due to excess calories; G25.81 Restless legs syndrome; K21.9 Gastro-esophageal reflux disease without esophagitis; G47.33 Obstructive sleep apnea (adult) (pediatric); I25.10 Atherosclerotic heart disease of native coronary artery without angina pectoris; E11.59 Type 2 diabetes mellitus with other circulatory complications; E11.42 Type 2 diabetes mellitus with diabetic polyneuropathy; E11.22 Type 2 diabetes mellitus with diabetic chronic kidney disease; N18.31 Chronic kidney disease, stage 3a; F41.9 Anxiety disorder, unspecified; F32.A Depression, unspecified; G89.29 Other chronic pain; M54.50 Low back pain, unspecified; Z91.81 History of falling; Z74.01 Bed confinement status; Z79.4 Long term (current) use of insulin; Z79.82 Long term (current) use of aspirin; Z99.3 Dependence on wheelchair; Z79.84 Long term (current) use of oral hypoglycemic drugs; Z68.38 Body mass index [BMI] 38.0-38.9, adult; Z95.5 Presence of coronary angioplasty implant and graft; Z86.73 Personal history of transient ischemic attack (TIA), and cerebral infarction without residual deficits; Z86.711 Personal history of pulmonary embolism; Z82.49 Family history of ischemic heart disease and other diseases of the circulatory system
CPT/HCPCS: 36415; 36416; 71045; 80048; 80053; 80162; 82607; 82962; 83036; 83735; 83880; 84100; 84484; 85025; 85378; 86140; 92920; 92921; 93005; 93306; 93454; 96372; 96374; 96375; 99152; 99153; 99285; C1725; C1760; C1769; C1887; C1894; G0269; J1644; J1650; J1815; J2250; J3010; J3475; J3490; J7030; Q0163; Q9967

== ENCOUNTER 2023-11-20 12:42 | Inpatient (IN) | payer OTHER, MEDICAID, SELFPAY ==
[2023-11-20] VITALS (34 sets, daily range): BP systolic 110–144; BP diastolic 31–86; PULSE 63–76; RESP 10–27; TEMP 36.3–36.6; O2SAT 94–100; BMI 37.9; BMI 40.1
--- NOTE | 2023-11-20 12:46 | ECG_ITS ---
[facility] Test Date: 2023-11-20 Pat Name: Watson Bridges Department: Room: Gender: Female Consulting Psychologist: : 1960 Requested By: Da Barragan Order Number: [id number] Aleks MD: Denisse Rodriguez M.D. Measurements Intervals [place] Rate: 70 P: 61 FL: 188 QRS: 49 QRSD: 89 T: 79 QT: 380 QTc: 411 Interpretive Statements SINUS RHYTHM LOW QRS VOLTAGE IN EXTREMITY LEADS [QRS DEFLECTION < 0.5 mV IN LIMB LEADS] Compared to ECG 11/14/2023 16:12:48 Low QRS voltage now present ST (T wave) deviation no longer present Electronically Signed On 11-20-2023 17:57:21 CDT by Denisse Rodriguez M.D. [id number] f
--- NOTE | 2023-11-20 12:48 | XACV_ITS ---
Exam Room: 2 Ht: 152 cm Wt: 97 kg BSA: 2.08 m2 Gender: Female : 1960 Any Known Allergies: Ibuprofen Exam Priority: Routine Indication(s): - Acute anterior wall PR Procedure(s): Procedure Description: Diagnostic procedure Procedure Description: PCI procedure Procedure Description: Drug Eluting Coronary Stent Procedure Description: PTCA Procedure Description: Miscellaneous Procedure Description: ACT Procedure Description: Coronary Angiography Diagnostic Cath Status: Emergency Diagnostic Findings * Left Main has no significant disease. * Left Anterior Descending has patent prior stents. * Right Coronary Artery has patent prior stents. * Mid Circumflex : significant 80%, hazy instent restenosis, ERICK: 3 flow. * Coronary angiography shows right dominance. PCI Status: Emergency PCI Indication: Immediate PCI for STEMI Interventional Findings * Procedure detail: We engaged left main artery with XB 3.5 guide catheter. IV heparin was administered to maintain anticoagulation. 0.014 run-through guidewire was used to cross the stenosis and was put in distal vessel. We placed 3.5 x 18 mm resolute [place] drug-eluting stent to treat hazy severe in-stent restenosis in the mid circumflex artery. Stent was postdilated with a 3.5 x 12 mm NC balloon at high pressure. At this time final angiogram showed ERICK-3 flow, no residual stenosis. Guidewire and guide catheter were removed. Patient left the Manager Water in excellent condition.. * Mid Circumflex to Mid Circumflex: 80% stenosis treated with a MDT Zaina MILTON 3.5X18 JORDIN, and MDT ARLENE EUPHORA RX [id number] BALLOON. 0% residual stenosis, ERICK: 3 flow. Conclusions 1. Severe, hazy in-stent restenosis in mid left circumflex artery. 2. S/p successful revascularization with 1 stent.. 3. Mid Circumflex to Mid Circumflex was treated with a Drug Eluting Stent, and Balloon. Recommendations * Continue dual antiplatelet therapy with aspirin and Brilinta for at least 1 year. * High intensity statin therapy. * Outpatient cardiology follow up in 2 weeks. Interventional RX Recommendation: PCI w/o planned CABG Diagnostic RX Recommendation: PCI w/o planned CABG Anticoagulation: Heparin Pressures Phase:Rest AO : 128 / 65 ( 91 ) @ 2:23:00 PM 81 / 49 ( 64 ) @ 2:27:00 PM Clinical Evaluation EBL: 5mL-10mL Procedural Details Pre-Procedure Time Out. Identified patient by full name and date of as verbalized by the patient/guarantor. Does the consent match the physician's order: N/A Emergent; Informed Consent not obtained due to time critical life threat. Accurate & Complete Informed Consent: N/A Emergent; Informed Consent not obtained due to time critical life threat. Inpatient/Outpatient History & Physical on Chart: N/A Emergent; Informed Consent not obtained due to time critical life threat. If H&P is completed, is and addenduem needed: N/A Emergent; Informed Consent not obtained due to time critical life threat; If yes, is the addendum complete: N/A Emergent; Informed Consent not obtained due to time critical life threat. Visualize and Verify Site with Patient/Guarantor: N/A. Relevant Radiology Images available: N/A Emergent; Informed Consent not obtained due to time critical life threat. Pre-op teaching completed and patient verbalized understanding. The risks, benefits, and alternatives of sedation and/or procedure were discussed by physician. The patient agrees to continue. Procedure started. [facility] Clinical Fraility Score: 4: Vulnerable. Manager Water Indications: ACS <= 24 hours. Chest Pain Symptom Assessment: Typical Angina Symptoms. Cardiovascular Instability: Yes, if yes, Persistant Ischemic Symptoms. Correct patient, site and procedure confirmed by cath team. PERRLA. Strong, equal hand sprue knocker bilaterally. Lungs clear x 5 lobes. IV Site on Arrival: 20 gauge in the right anticubital. IV Site on Arrival: 20 gauge in the left anticubital. IV Fluids: 0.9% NaCl at KVO. 0 mL infused prior to senior label specialist. Oxygen started at 2liters/min via nasal canula. bilateral groins was prepped with chloroprep then draped in the usual sterile fashion. Baseline sample Acquired. HR: 71 BPM. Physician notified. Patient's family unavailable. Equipment: 6F - Femoral. Cardiac Cath Pack. ACIST Manifold Kit Model BT 2000. Heparinized Saline (2 units/mL), 1000 mL bag. Kit, Micropuncture. Physician arrived. Physician scrubbed in. Immediate Pre-Procedure Time Out. Correct Patient: N/A Emergent; Informed Consent not obtained due to time critical life threat; Correct Procedure: N/A Emergent; Informed Consent not obtained due to time critical life threat; Correct Site: N/A Emergent; Informed Consent not obtained due to time critical life threat; Correct Patient Position: N/A Emergent; Informed Consent not obtained due to time critical life threat; Correct Supplies: N/A Emergent; Informed Consent not obtained due to time critical life threat; Dried Flammable Prep: N/A Emergent; Informed Consent not obtained due to time critical life threat; Blood Products Available: N/A Emergent; Informed Consent not obtained due to time critical life threat;. Lidocaine 1% infiltrated to the left groin. Arterial access obtained with micropuncture set. A 5 ecuadorean JL4 catheter in over the standard J wire. Multiple views taken of left coronary artery. Catheter removed over the standard J wire. A 5 ecuadorean JR4 catheter in over the standard J wire. Multiple views taken of right coronary artery. Catheter removed over the standard J wire. 6 ecuadorean XB 3 guide catheter was inserted over the standard J wire. Runthrough guidewire was advanced through the guide catheter to lesion in the mid Circ. Inflation Number : 1 Robert Mahajan MILTON 3.5X18 JORDIN -Lot Number# [id number] was prepped and advanced across the Mid CX. The stent was deployed at 12 RICHI for 0:16 seconds. Exp . Stent balloon out over wire. Inflation number : 2 A MDT NC EUPHORA RX [id number] BALLOON was prepped and advanced across the Mid CX , then inflated to 20 RICHI for 0:17 seconds. Inflation number: 3 The MDT NC EUPHORA RX [id number] BALLOON was reinflated across the Mid CX, to 14 RICHI for 0:06 seconds. Inflation number: 4 The MDT NC EUPHORA RX [id number] BALLOON was reinflated across the Mid CX, to 18 RICHI for 0:08 seconds. Balloon out. Results checked. Wire out. ACT drawn. Results 214 seconds. Therapeutic limits - pre-heparin administration 90-150 seconds and monitoring heparin during a vascular procedure >250 seconds. Guide catheter out. A Left femoral angiogram was performed to determine safe placement of closure device. Dr. Newell scrubbed out. Brilinta 180mg and Heparin 4000Units IV was given in ED. Aspirin 324mg PO was given VITICULTURE TEACHER. Sheath(s) sutured into position with 2-0 silk and sterile 4x4's and Op-site applied over the site. No oozing or signs and symptoms of hematoma noted. Arterial sheath flushed and connected to tranducer and pressure bag with heparinized saline. Post Procedure: bilateral dorsalis pedis pulse Doppled. Post Procedure: bilateral posterior tibial pulse Doppled. PERRLA. Strong, equal hand sprue knocker bilaterally. No VTE prophylaxis required. Medication's Wasted: Lidocaine 1% = 10 mL. Medication's Wasted: Heparin = 1000 units. Total IV fluids: 50 mL. PCI Indication: STEMI. Post-op diagnosis: Hazy 80 ISR s/p PCI of the Mid CX. Complications: none. Estimated blood loss: 5mL-10mL. Responsiveness - Normal response to verbal stimuli; alert and oriented, PERRLA. Airway - Unaffected, no intervention required; spontaneous ventilation. Circulation: W/N/L, pulses unchanged. Nausea/Vomiting: No. A Suture was successful obtaining hemostatsis at the Left Femoral artery insertion site. Current Diagnosis : STEMI. PCI Indication : Immediate PCI for STEMI. Procedure completed. Patient transferred by bed to 1st floor. Vital chart was stopped. Access Site Site: Left Femoral artery Sheath Size: 6 Fr Hemostasis Method: Suture Hemostasis Success: Successful Procedure Medications Start: 1:09 PM Stop: 1:09 PM Medication: Versed Amount: 1 mg Route: I.V. Start: 1:09 PM Stop: 1:09 PM Medication: Fentanyl Amount: 50 mcg Route: I.V. Start: 1:13 PM Stop: 1:13 PM Medication: Versed Amount: 1 mg Route: I.V. Start: 1:24 PM Stop: 1:24 PM Medication: Heparin Amount: 5000 units Route: I.V. Start: 1:24 PM Stop: 1:24 PM Medication: Fentanyl Amount: 25 mcg Route: I.V. Start: 1:29 PM Stop: 1:29 PM Medication: Fentanyl Amount: 25 mcg Route: I.V. Start: 1:38 PM Stop: 1:38 PM Medication: Heparin Amount: 3000 units Route: I.V. I, the attending physician, have reviewed and verified all procedure medications. Yes, all medications given per verbal order Prior Interventions PCI: Yes Date of PCI: 11/15/2023 Report Signatures Finalized by Jaiden Newell MD on 12/03/2023 11:14 AM
[2023-11-20] MEDS: ticagrelor 90 mg Tablet 180 MG PO (12:56)
[2023-11-20] MEDS: heparin 5,000 unit/mL INJ 1 mL 4000 UNIT IVP (12:56)
--- NOTE | 2023-11-20 12:59 | ED_ITS ---
HPI - Chest Pain General: Chief Complaint: Chest Pain Stated Complaint: CHEST PAIN Time Seen by Provider: 11/20/23 12:45 Source: patient and EMS Mode of arrival: EMS Limitations: no limitations History of Present Illness: 63-year-old female here from [facility] she has significant history of coronary artery disease states she been having chest pain today's pressure type pain in the center of her chest rates her pain a 3 out of 10 currentl had some relief with nitro she did receive nitro and aspirin in route. Associated symptoms: Deny abdominal pain, dyspnea, fever(s), nausea or vomiting Review of Systems Const: Denies: fever(s), chills, body aches or change in appetite ENMT: Denies: throat pain or dental pain Card: Reports: chest pain Resp: Denies: dyspnea GI: Denies: abdominal pain, nausea, vomiting or diarrhea Musc: Denies: neck pain or back pain Skin/Breast: Denies: rash Neuro: Denies: headache(s) PFSH ED PFSH: Medical History Small bowel strangulation Dyslipidemia Chronic cystitis Gross hematuria Osteoporosis Morbid obesity Constipation Migraine headache Bilateral lower extremity edema RLS (restless legs syndrome) GERD (gastroesophageal reflux disease) BETH (obstructive sleep apnea) CVA (cerebral vascular accident) CAD (coronary artery disease) HTN (hypertension) DM type 2 (diabetes mellitus, type 2) Pulmonary embolism, bilateral Opioid contract exists Long-term use of high-risk medication Chronic low back pain Surgical History H/O heart artery stent S/P hysterectomy S/P tonsillectomy and adenoidectomy S/P appendectomy S/P cholecystectomy Hx of total knee replacement History of partial surgical removal of colon Family History Grandfather Cancer Family/Other Myocardial infarct MOTHER, FATHER, BROTHER, SISTER Hypertension Diabetes Mother , at age 66 CAD (coronary artery disease) Father , at age 74 CAD (coronary artery disease) Sister CAD (coronary artery disease) Brother CAD (coronary artery disease) Other Stroke Denies family history of Anesthesia complication Bleeding disorder Social History Smoking and tobacco/nicotine status: current some day tobacco/nicotine user Alcohol intake: never Substance/Drug Use: current Substance/Drug use frequency: other Other substance/drug use details: smokes medical kashif occasionally at night to help her sleep Lives independently: Yes Marital status: Current occupational status: disabled Current gender identity: Female Special vik needs: No Physical Exam Const: COMMON NORMALS: no acute distress, patient oriented x3 and healthy appearing HENMT: COMMON NORMALS: normocephalic and atraumatic HEAD & SCALP: normocephalic and atraumatic Neck/C-Spine: COMMON NORMALS: full ROM and supple Chest: COMMONS NORMALS: normal inspection of the chest Resp: COMMON NORMALS: normal respiratory effort, No retractions, No use of accessory muscles and clear to auscultation bilaterally AUSCULTATION: clear to auscultation bilaterally Cardio: COMMON NORMALS: regular rate, regular rhythm and No murmurs present (Cardio) RATE: regular rate RHYTHM: regular rhythm Extremity: COMMON NORMALS: normal to inspection and full ROM Neuro: COMMON NORMALS: patient oriented x3, moves all extremities and no focal motor deficits Psych: COMMON NORMALS: mental status grossly normal, Normal thought process present and cooperative THOUGHT PROCESS: Normal thought process present Skin: COMMON NORMALS: no rashes or lesions noted and no wounds GENERAL SKIN EXAM: no rashes or lesions noted Course Vital Signs: Vital signs: Vital Signs Temperature 97.7 F 11/20/23 12:44 Pulse Rate 76 11/20/23 12:44 Respiratory Rate 16 11/20/23 12:44 Blood Pressure 110/74 11/20/23 12:44 Pulse Oximetry 99 11/20/23 12:44 Oxygen Delivery Me thod Room Air 11/20/23 12:44 MDM - Chest Pain Medical Decision Making Patient presents here with a STEMI alert she does have significant depression on her EKG active chest pain and history of heart disease up spoke to Dr. Bob who knows patient is taking her to the [facility] at this time No radiology studies performed this visit Discharge Plan Discharge Patient Disposition: Admitted As Inpatient Clinical Impression: ST elevation myocardial infarction (STEMI) Condition: Stable Prescriptions: No Action (DME) walker with seat and brakes See Rx Instructions .Route .MEDSULY Qty: 1 0RF Rx Instructions: As directed (DME) InPen (for Humalog) Insulin Pen See Rx Instructions .Route Qty: 150 0RF Rx Instructions: qid to inject insulin (DME) diabetic shoes and inserts See Rx Instructions .Route .MEDSUPPLY Qty: 1 0RF Rx Instructions: As directed (DME) lancets [BD Ultra Fine Lancets] 33 gauge misc See Rx Instructions .Route Qty: 100 1RF Rx Instructions: As directed (DME) insulin syringe-needle U-100 [BD Veo Insulin Syringe UF] 1/2 mL 31 gauge x 15/64 syringe See Rx Instructions .ROUTE .MEDSUPPLY Qty: 100 2RF Rx Instructions: As directed pantoprazole 40 mg tablet,delayed release (DR/EC) 40 mg PO QAM insulin glargine [Lantus Solostar U-100 Insulin] 100 unit/mL (3 mL) insulin pen 32 unit SUBCUT QAM ondansetron HCl 4 mg tablet 4 mg PO BID PRN (Reason: Nausea) hydrocodone-acetaminophen 10-325 mg tablet 1 tab PO Q6H PRN (Reason: Pain, Moderate) Ozempic 0.25 mg or 0.5 mg (2 mg/3 mL) pen injector 0.5 mg SUBCUT Q7D tamsulosin 0.4 mg capsule 0.4 mg PO BEDTIME@22 ropinirole 0.5 mg tablet 0.5 mg PO BEDTIME@22 Qty: 30 2RF (DME) oxygen tubing See Rx Instructions .Route .MEDSUPPLY Qty: 1 0RF Rx Instructions: [facility] ASO to RIGHT See Rx Instructions .Route .MEDSUPPLY Qty: 1 0RF Rx Instructions: As directed ([facility] [place]) wheel-chair with foot rest See Rx Instructions .Route .MEDSUPPLY Qty: 1 0RF Rx Instructions: As directed by HOME levothyroxine 25 mcg capsule 25 mcg PO QAM sertraline [Zoloft] 25 mg tablet 25 mg PO BEDTIME trazodone 50 mg tablet 50 mg PO BEDTIME (DME) Accu-Chek Guide test strips Strip See Rx Instructions .Route Qty: 100 5RF Rx Instructions: As directed; to test 5 x daily (DME) Incontinence Supplies See Rx Instructions .Route .MEDSUPPLY Qty: 1 0RF Rx Instructions: As directed triamterene-hydrochlorothiazid 37.5-25 mg tablet 2 tab PO DAILY Qty: 30 2RF calcium carbonate [Tums] 200 mg calcium (500 mg) Tablet,Chewable 1,000 mg PO DAILY PRN (Reason: Stomach Upset) nitroglycerin [Nitrostat] 0.4 mg Tablet, Sublingual 0.4 mg SUBLINGUAL Q5M PRN (Reason: Chest Pain) Rx Instructions: do not exceed 3 doses per episode atorvastatin 40 mg tablet 40 mg PO DAILY@07 potassium chloride 10 mEq tablet extended release 10 meq PO DAILY@07 metformin 1,000 mg tablet 1,000 mg PO DAILY Hold Instructions: Resume on 11/18/23. cholecalciferol (vitamin D3) 1,250 mcg (50,000 unit) capsule 50,000 unit PO Q7D Rx Instructions: Takes on Fridays isosorbide mononitrate 30 mg tablet extended release 24 hr 30 mg PO DAILY Qty: 90 0RF bupropion HCl 200 mg tablet sustained-release 12 hr 200 mg PO BID insulin lispro [Humalog KwikPen Insulin] 100 unit/mL insulin pen 29 sliding scale dose SUBCUT TID metoprolol succinate 50 mg tablet extended release 24 hr 75 mg PO DAILY acetaminophen 650 mg Tablet Extended Release 1,300 mg PO Q8H PRN (Reason: Pain) Milk of Magnesia 400 mg/5 mL Suspension 30 ml PO DAILY PRN (Reason: Constipation) aspirin 81 mg Tablet,Delayed Release (Dr/Ec) 81 mg PO DAILY@07 Qty: 60 0RF Brilinta 90 mg tablet 90 mg PO BID@ Qty: 120 0RF amoxicillin-pot clavulanate 875-125 mg tablet 1 tab PO BID Qty: 10 0RF Referrals: Niko Jerez MD [Primary Care Provider] - Coding Level of Care Code ED Event Crew Technician for Romie Everett
--- NOTE | 2023-11-20 13:00 | P.HP_ITS ---
Providers/Chief Complaint 2 Admitting Physician: Jaiden Newell MD/ Cardiology Primary Care Provider: Niko Jerez MD Chief Complaint: CHEST PAIN History of Present Illness Watson Bridges is a 63 year old female with past medical history of CAD with multiple stents, recent balloon angioplasty of RCA, PDA, mid and distal left circumflex artery prior stents has been brought by EMS secondary to severe substernal chest pain. It is radiating to left arm. EKG performed by EMS demonstrated ST elevations in posterior leads V7/8/[address] depressions. laboratory tech was emergently activated. Review of Systems 2 Const: Denies: fever(s), chills, body aches or change in appetite ENMT: Denies: throat pain or dental pain Card: Reports: chest pain Resp: Denies: dyspnea GI: Denies: abdominal pain, nausea, vomiting or diarrhea Musc: Denies: neck pain or back pain Skin/Breast: Denies: rash Neuro: Denies: headache(s) Medications/Allergies Home Medications Medication Instructions Recorded Confirmed Last Taken Type walker with seat and brakes #1 ea 03/26/20 11/14/23 08/08/20 22:30 Rx insulin admin supplies (InPen (for #150 ea 10/04/21 11/14/23 Unknown Rx Humalog) subcutaneous) diabetic shoes and inserts #1 ea 05/11/22 11/14/23 Unknown Rx insulin syringe-needle U-100 1/2 #100 ea 09/23/22 11/14/23 Unknown Rx mL 31 gauge x 15/64 (BD Veo Insulin Syringe Ultra-Fine) lancets 33 gauge (BD Ultra Fine #100 ea 09/23/22 11/14/23 Unknown Rx Lancets) blood sugar diagnostic (Accu-Chek #100 ea 12/09/22 11/14/23 Unknown Rx Guide test strips) tamsulosin 0.4 mg capsule 0.4 mg PO BEDTIME@01/06/23 11/14/23 09/14/23 History atorvastatin 40 mg tablet 40 mg PO DAILY@01/18/23 11/14/23 09/14/23 History calcium carbonate (Tums) 1,000 mg PO DAILY PRN Stomach Upset 01/18/23 11/14/23 09/14/23 History cholecalciferol (vitamin D3) 1,250 50,000 unit PO Q7D 01/18/23 11/14/23 09/14/23 History mcg (50,000 unit) capsule metformin 1,000 mg tablet 1,000 mg PO DAILY 01/18/23 11/14/23 09/14/23 History nitroglycerin 0.4 mg sublingual 0.4 mg sublingual Q5M PRN Chest 01/18/23 11/14/23 Unknown History tablet (Nitrostat) Pain potassium chloride 10 mEq 10 meq PO DAILY@01/18/23 11/14/23 09/14/23 History tablet,extended release ASO to RIGHT #1 ea 01/20/23 11/14/23 Unknown Rx wheel-chair with foot rest #1 ea 01/20/23 11/14/23 Unknown Rx oxygen tubing #1 ea 01/24/23 11/14/23 Unknown Rx ropinirole 0.5 mg tablet 0.5 mg PO BEDTIME@22 #30 tabs 01/24/23 11/14/23 09/14/23 Rx Incontinence Supplies #1 ea 01/27/23 11/14/23 Unknown Rx isosorbide mononitrate 30 mg 30 mg PO DAILY #90 tabs 02/21/23 11/14/23 09/14/23 Rx tablet,extended release 24 hr levothyroxine 25 mcg capsule 25 mcg PO QAM 05/08/23 11/14/23 09/14/23 History sertraline 25 mg tablet (Zoloft) 25 mg PO BEDTIME 05/08/23 11/14/23 09/14/23 History triamterene 37.5 2 tab PO DAILY #30 tabs 08/09/23 11/14/23 09/14/23 Rx mg-hydrochlorothiazide 25 mg tablet hydrocodone 10 mg-acetaminophen 1 tab PO Q6H PRN Pain, Moderate 09/07/23 11/14/23 Unknown History 325 mg tablet insulin glargine 100 unit/mL (3 32 unit SUBCUT QAM 09/07/23 11/14/23 09/13/23 History mL) subcutaneous pen (Lantus Solostar U-100 Insulin) ondansetron HCl 4 mg tablet 4 mg PO BID PRN Nausea 09/07/23 11/14/23 09/14/23 History pantoprazole 40 mg tablet,delayed 40 mg PO QAM 09/07/23 11/14/23 09/14/23 History release semaglutide 0.25 mg or 0.5 mg (2 0.5 mg SUBCUT Q7D 09/07/23 11/14/23 09/08/23 History mg/3 mL) subcutaneous pen injector (Ozempic) trazodone 50 mg tablet 50 mg PO BEDTIME 09/07/23 11/14/23 09/14/23 History bupropion HCl 200 mg tablet,12 hr 200 mg PO BID 09/14/23 11/14/23 09/14/23 History sustained-release insulin lispro 100 unit/mL 29 sliding scale dose SUBCUT TID 09/14/23 11/14/23 09/14/23 History subcutaneous pen (Humalog KwikPen (U-100) Insulin) metoprolol succinate 50 mg 75 mg PO DAILY 09/15/23 11/14/23 09/15/23 History tablet,extended release 24 hr acetaminophen 650 mg 1,300 mg PO Q8H PRN Pain 11/14/23 11/14/23 Unknown History tablet,extended release magnesium hydroxide 400 mg/5 mL 30 ml PO DAILY PRN Constipation 11/14/23 11/14/23 Unknown History oral suspension (Milk of Magnesia) amoxicillin 875 mg-potassium 1 tab PO BID #10 tabs 11/16/23 Unknown Rx clavulanate 125 mg tablet aspirin 81 mg tablet,delayed 81 mg PO DAILY@07 #60 tabs 11/16/23 Unknown Rx release ticagrelor 90 mg tablet (Brilinta) 90 mg PO BID@ #120 tabs 11/16/23 Unknown Rx Allergies Allergy/AdvReac Type Severity Reaction Status Date / Time hyoscyamine Allergy Severe ADR-Itching Verified 11/20/23 12:51 ciprofloxacin [From Cipro] Allergy hives Verified 11/20/23 12:51 citalopram Allergy effects Verified 11/20/23 12:51 speach and memory clopidogrel [From Plavix] Allergy unk Verified 11/20/23 12:51 coconut Allergy Unknown Verified 11/20/23 12:51 ibuprofen Allergy RASH/ Verified 11/20/23 12:51 SWELLING morphine Allergy ITCHING Verified 11/20/23 12:51 famotidine AdvReac Mild itching Verified 11/20/23 12:51 esomeprazole [From Nexium] AdvReac Unknown Verified 11/20/23 12:51 cefdinir Allergy unknown Uncoded 11/20/23 12:51 PFSH Acute 2 PFSH: Medical History Chronic kidney disease (CKD) Atherosclerotic heart disease of [place] coronary artery with other forms of angina pectoris Non-ST elevation TN (NSTEMI) Lower extremity weakness Acute kidney injury Elevated troponin CHF (congestive heart failure) Depression with anxiety Coronary artery disease due to type 2 diabetes mellitus Morbid obesity Generalized muscle weakness Type 2 diabetes mellitus with diabetic polyneuropathy Chest pain Diabetes mellitus Small bowel strangulation Dyslipidemia Chronic cystitis Gross hematuria Osteoporosis Morbid obesity Constipation Migraine headache Bilateral lower extremity edema RLS (restless legs syndrome) GERD (gastroesophageal reflux disease) BETH (obstructive sleep apnea) CVA (cerebral vascular accident) CAD (coronary artery disease) HTN (hypertension) DM type 2 (diabetes mellitus, type 2) Pulmonary embolism, bilateral Opioid contract exists Long-term use of high-risk medication Chronic low back pain Surgical History H/O heart artery stent S/P hysterectomy S/P tonsillectomy and adenoidectomy S/P appendectomy S/P cholecystectomy Hx of total knee replacement History of partial surgical removal of colon Family History Grandfather Cancer Family/Other Myocardial infarct MOTHER, FATHER, BROTHER, SISTER Hypertension Diabetes Mother , at age 66 CAD (coronary artery disease) Father , at age 74 CAD (coronary artery disease) Sister CAD (coronary artery disease) Brother CAD (coronary artery disease) Other Stroke Denies family history of Anesthesia complication Bleeding disorder Social History Smoking and tobacco/nicotine status: current some day tobacco/nicotine user Alcohol intake: never Substance/Drug Use: current Substance/Drug use frequency: other Other substance/drug use details: smokes medical marijauna occasionally at night to help her sleep Lives independently: Yes Marital status: Current occupational status: disabled Current gender identity: Female Special vik needs: No Vitals/I&O/Wt Last Vital Signs Temp 97.7 F 11/20/23 12:44 Pulse 76 11/20/23 12:44 Resp 16 11/20/23 12:44 BP 110/74 11/20/23 12:44 Pulse Ox 99 11/20/23 12:44 O2 Del Method Room Air 11/20/23 12:44 Weight last 48 hrs Weight 214 lb Physical Exam 2 Narrative: GENERAL: Patient is alert, awake and oriented x3. [] NECK: No jugular vein distension. [] HEENT: No cyanosis. No icterus. No pallor. [] HEART: Regular S1 and S2. No murmur, rub or gallop. [] LUNGS: Clear to auscultate bilaterally. [] CENTRAL NERVOUS SYSTEM: Grossly nonfocal. [] EXTREMITIES: Lower extremities with 1+ edema bilaterally. Data 11/20/23 15:55 11/20/23 15:55 A&P Assessment and plan (1) ST elevation myocardial infarction (STEMI): (2) Diabetes mellitus with cardiac complication: (3) Obesity: Plan Patient has presented with posterior ST elevation TN. Will proceed with coronary angiogram with possible percutaneous coronary intervention emergently. Aspirin, Brilinta load given. Heparin bolus given. Will consult medicine team as patient has diabetes and other medical issues. Limited echocardiogram Attestations 2 Medical Necessity Statement*: Care expected to cross 2 midnights. Patient has presented with acute STEMI and will be undergoing emergent cardiac catheterization Coding Level of Care Code Acute Code for [facility] Fwd Diagnoses ST elevation myocardial infarction (STEMI) I21.3 Diabetes mellitus with cardiac complication E11.59 Obesity E66.9
--- NOTE | 2023-11-20 14:53 | USCV_ITS ---
Watson Bridges Age: 63 Gender: F : 1960 Exam Date: 11/20/2023 15:29 Ordering Phys: Ruthy Chang MD Technologist: Exam [place] [facility] [place]: NSTEMI BP: 127 / 60 HR: Rhythm: Sinus Technical Quality: Adequate MEASUREMENTS (Male / Female) Normal Values 2D ECHO LV Diastolic Diameter PLAX 4.8 cm 4.2 - 5.9 / 3.9 - 5.3 cm IVS Diastolic Thickness 1.3 cm 0.6 - 1.0 / 0.6 - 0.9 cm IVS Systolic Thickness 1.7 cm LVPW Diastolic Thickness 1.4 cm 0.6 - 1.0 / 0.6 - 0.9 cm LVPW Systolic Thickness 1.7 cm LVOT Diameter 2.1 cm LV Ejection Fraction 2D Teich 37.1 % LV Ejection Fraction MOD 2C 52.0 % LV Ejection Fraction 2C AL 51.4 % LA Diameter 4.0 cm RA Systolic Volume 4C AL 53.1 ml RA Systolic Volume 4C MOD 50.7 ml LA Sys Volume AL 114.0 cm cubed LA Sys Volume Index AL 51.6 cm cubed/m squared Aorta at Sinotubular Diameter 2.5 cm M-MODE LA Ao Ratio MM 1.3 AV Cusp Separation MM 2.0 cm FINDINGS Left Ventricle Right Ventricle Right Atrium Left Atrium Mitral Valve Aortic Valve Tricuspid Valve Pulmonic Valve Pericardium Aorta IVC CONCLUSIONS This is a limited echocardiogram performed to assess LV systolic function LV systolic function is normal with EF of 50-55%. Mild hypokinesis of inferolateral wall. Jaiden Newell MD (Electronically Signed) Final Date: 21 Nov 2023 10:02 S
--- NOTE | 2023-11-20 15:58 | ECG_ITS ---
[facility] Test Date: 2023-11-20 Pat Name: Watson Bridges Department: Room: 103 Gender: Female Gi Physician: : [id number] Requested By: Da Barragan Order Number: [id number] Aleks MD: Denisse Rodriguez M.D. Measurements Intervals [place] Rate: 69 P: 70 HI: 193 QRS: 67 QRSD: 89 T: 87 QT: 383 QTc: 411 Interpretive Statements SINUS RHYTHM LOW QRS VOLTAGE [QRS DEFLECTION < 0.5/1.0 mV IN LIMB/CHEST LEADS] Compared to ECG 11/20/2023 12:46:55 No significant changes Electronically Signed On 11-20-2023 18:10:46 CDT by Denisse Rodriguez M.D. [email or web address]
--- NOTE | 2023-11-20 16:05 | P.CONIM_ITS ---
Providers/Reason For Consult 2 Consulting Physician/Specialty*: . Hospital service management Reason for Consult*: Post cath hospitalist Attending Physician: Jaiden Newell M.D Primary Care Provider: Niko Jerez MD History of Present Illness History of Present Illness Watson Bridges is a 63 year old female who was recently discharged from the hospital after balloon angioplasty of her coronary vessels, presenting with chief complaint of chest pain, STEMI was called, patient went for cardiac cath, status post angioplasty with a stent please review angiogram report for full details, at the time of evaluation patient is chest pain-free, no active pain, hemodynamically stable Patient is from [facility]. We have resumed her aspirin, Brilinta and atorvastatin. Will resume a consistent carb diet along insulin and sliding scale Review of Systems 2 Const: Denies: fever(s) Eyes: Denies: change in vision ENMT: Denies: throat pain Card: Denies: chest pain Medications/Allergies Home Medications Medication Instructions Recorded Confirmed Last Taken Type walker with seat and brakes #1 ea 03/26/20 11/14/23 08/08/20 22:30 Rx insulin admin supplies (InPen (for #150 ea 10/04/21 11/14/23 Unknown Rx Humalog) subcutaneous) diabetic shoes and inserts #1 ea 05/11/22 11/14/23 Unknown Rx insulin syringe-needle U-100 1/2 #100 ea 09/23/22 11/14/23 Unknown Rx mL 31 gauge x 15/64 (BD Veo Insulin Syringe Ultra-Fine) lancets 33 gauge (BD Ultra Fine #100 ea 09/23/22 11/14/23 Unknown Rx Lancets) blood sugar diagnostic (Accu-Chek #100 ea 12/09/22 11/14/23 Unknown Rx Guide test strips) tamsulosin 0.4 mg capsule 0.4 mg PO BEDTIME@01/06/23 11/14/23 09/14/23 History atorvastatin 40 mg tablet 40 mg PO DAILY@01/18/23 11/14/23 09/14/23 History calcium carbonate (Tums) 1,000 mg PO DAILY PRN Stomach Upset 01/18/23 11/14/23 09/14/23 History cholecalciferol (vitamin D3) 1,250 50,000 unit PO Q7D 01/18/23 11/14/23 09/14/23 History mcg (50,000 unit) capsule metformin 1,000 mg tablet 1,000 mg PO DAILY 01/18/23 11/14/23 09/14/23 History nitroglycerin 0.4 mg sublingual 0.4 mg sublingual Q5M PRN Chest 01/18/23 11/14/23 Unknown History tablet (Nitrostat) Pain potassium chloride 10 mEq 10 meq PO DAILY@07 01/18/23 11/14/23 09/14/23 History tablet,extended release ASO to RIGHT #1 ea 01/20/23 11/14/23 Unknown Rx wheel-chair with foot rest #1 ea 01/20/23 11/14/23 Unknown Rx oxygen tubing #1 ea 01/24/23 11/14/23 Unknown Rx ropinirole 0.5 mg tablet 0.5 mg PO BEDTIME@22 #30 tabs 01/24/23 11/14/23 09/14/23 Rx Incontinence Supplies #1 ea 01/27/23 11/14/23 Unknown Rx isosorbide mononitrate 30 mg 30 mg PO DAILY #90 tabs 02/21/23 11/14/23 09/14/23 Rx tablet,extended release 24 hr levothyroxine 25 mcg capsule 25 mcg PO QAM 05/08/23 11/14/23 09/14/23 History sertraline 25 mg tablet (Zoloft) 25 mg PO BEDTIME 05/08/23 11/14/23 09/14/23 History triamterene 37.5 2 tab PO DAILY #30 tabs 08/09/23 11/14/23 09/14/23 Rx mg-hydrochlorothiazide 25 mg tablet hydrocodone 10 mg-acetaminophen 1 tab PO Q6H PRN Pain, Moderate 09/07/23 11/14/23 Unknown History 325 mg tablet insulin glargine 100 unit/mL (3 32 unit SUBCUT QAM 09/07/23 11/14/23 09/13/23 History mL) subcutaneous pen (Lantus Solostar U-100 Insulin) ondansetron HCl 4 mg tablet 4 mg PO BID PRN Nausea 09/07/23 11/14/23 09/14/23 History pantoprazole 40 mg tablet,delayed 40 mg PO QAM 09/07/23 11/14/23 09/14/23 History release semaglutide 0.25 mg or 0.5 mg (2 0.5 mg SUBCUT Q7D 09/07/23 11/14/23 09/08/23 History mg/3 mL) subcutaneous pen injector (Ozempic) trazodone 50 mg tablet 50 mg PO BEDTIME 09/07/23 11/14/23 09/14/23 History bupropion HCl 200 mg tablet,12 hr 200 mg PO BID 09/14/23 11/14/23 09/14/23 History sustained-release insulin lispro 100 unit/mL 29 sliding scale dose SUBCUT TID 09/14/23 11/14/23 09/14/23 History subcutaneous pen (Humalog KwikPen (U-100) Insulin) metoprolol succinate 50 mg 75 mg PO DAILY 09/15/23 11/14/23 09/15/23 History tablet,extended release 24 hr acetaminophen 650 mg 1,300 mg PO Q8H PRN Pain 11/14/23 11/14/23 Unknown History tablet,extended release magnesium hydroxide 400 mg/5 mL 30 ml PO DAILY PRN Constipation 11/14/23 11/14/23 Unknown History oral suspension (Milk of Magnesia) amoxicillin 875 mg-potassium 1 tab PO BID #10 tabs 11/16/23 Unknown Rx clavulanate 125 mg tablet aspirin 81 mg tablet,delayed 81 mg PO DAILY@07 #60 tabs 11/16/23 Unknown Rx release ticagrelor 90 mg tablet (Brilinta) 90 mg PO BID@, #120 tabs 11/16/23 Unknown Rx Allergies Allergy/AdvReac Type Severity Reaction Status Date / Time hyoscyamine Allergy Severe ADR-Itching Verified 11/20/23 12:51 ciprofloxacin [From Cipro] Allergy hives Verified 11/20/23 12:51 citalopram Allergy effects Verified 11/20/23 12:51 speach and memory clopidogrel [From Plavix] Allergy unk Verified 11/20/23 12:51 coconut Allergy Unknown Verified 11/20/23 12:51 ibuprofen Allergy RASH/ Verified 11/20/23 12:51 SWELLING morphine Allergy ITCHING Verified 11/20/23 12:51 famotidine AdvReac Mild itching Verified 11/20/23 12:51 esomeprazole [From Nexium] AdvReac Unknown Verified 11/20/23 12:51 cefdinir Allergy unknown Uncoded 11/20/23 12:51 PFSH Acute 2 PFSH: Medical History Chronic kidney disease (CKD) Atherosclerotic heart disease of [place] coronary artery with other forms of angina pectoris Non-ST elevation NH (NSTEMI) Lower extremity weakness Acute kidney injury Elevated troponin CHF (congestive heart failure) Depression with anxiety Coronary artery disease due to type 2 diabetes mellitus Morbid obesity Generalized muscle weakness Type 2 diabetes mellitus with diabetic polyneuropathy Chest pain Diabetes mellitus Small bowel strangulation Dyslipidemia Chronic cystitis Gross hematuria Osteoporosis Morbid obesity Constipation Migraine headache Bilateral lower extremity edema RLS (restless legs syndrome) GERD (gastroesophageal reflux disease) BETH (obstructive sleep apnea) CVA (cerebral vascular accident) CAD (coronary artery disease) HTN (hypertension) DM type 2 (diabetes mellitus, type 2) Pulmonary embolism, bilateral Opioid contract exists Long-term use of high-risk medication Chronic low back pain Surgical History H/O heart artery stent S/P hysterectomy S/P tonsillectomy and adenoidectomy S/P appendectomy S/P cholecystectomy Hx of total knee replacement History of partial surgical removal of colon Family History Grandfather Cancer Family/Other Myocardial infarct MOTHER, FATHER, BROTHER, SISTER Hypertension Diabetes Mother , at age 66 CAD (coronary artery disease) Father , at age 74 CAD (coronary artery disease) Sister CAD (coronary artery disease) Brother CAD (coronary artery disease) Other Stroke Denies family history of Anesthesia complication Bleeding disorder Social History Smoking and tobacco/nicotine status: current some day tobacco/nicotine user Alcohol intake: never Substance/Drug Use: current Substance/Drug use frequency: other Other substance/drug use details: smokes medical marijauna occasionally at night to help her sleep Lives independently: Yes Marital status: Current occupational status: disabled Current gender identity: Female Special vik needs: No Vitals/I&O/Wt Last Vital Signs Temp 97.7 F 11/20/23 12:44 Pulse 69 05/13/24 16:05 Resp 16 11/20/23 12:44 BP 110/74 11/20/23 12:44 Pulse Ox 100 11/20/23 16:05 O2 Del Method Nasal Cannula 11/20/23 16:05 O2 Flow Rate 2 11/20/23 16:05 Weight last 48 hrs Weight 97.069 kg Physical Exam 2 Narrative: Patient is awake and alert Chest pain free Nonfocal neuroexam Pleasant alert Euvolemic S1, S2 Hemodynamically stable Currently laying supine Data 11/20/23 15:55 11/20/23 15:55 A&P Assessment and plan (1) Long-term use of high-risk medication: (2) Status post left heart catheterization (LHC): (3) ST elevation myocardial infarction (STEMI): (4) Status post coronary artery stent placement: (5) Dyspnea on exertion: (6) Diabetes mellitus with cardiac complication: (7) Morbid obesity: Plan Cardiac consistent carb diet Added Lantus 30 units along sliding scale Continue aspirin, Brilinta recent balloon angioplasty, today STEMI was called, patient undergone PCI Continue atorvastatin Patient also takes Imdur antianginal medication Will continue metoprolol succinate as well Add isosorbide antianginal regimen from tomorrow Full code Cardiac consistent carb diet DVT prophylaxis with heparin Consult Attestations 2 Medical Necessity Statement: Follow along with cardiology Diagnoses Long-term use of high-risk medication Z79.899 Status post left heart catheterization (LHC) Z98.890 ST elevation myocardial infarction (STEMI) I21.3 Status post coronary artery stent placement Z95.5 Dyspnea on exertion R06.00 Diabetes mellitus with cardiac complication E11.59 Morbid obesity E66.01
[2023-11-20 16:06] LABS: Basophils % 0.3 %; Eosinophils # 1.2 10^3/uL (0.0-0.8); Eosinophils % 10.3 %; Hematocrit 34.6 % (36-47); Lymphocytes # 2.8 10^3/uL (0.8-4.8); Lymphocytes % 24.4 %; Mean Corpuscular HGB Conc 32.1 g/dL (30-55); Mean Corpuscular Hemoglobin 28.1 pg (27-33); Mean Corpuscular Volume 87.6 fl (85-98); Monocytes # 0.6 10^3/uL (0.2-0.9); Monocytes % 5.2 %; Neutrophils # 6.88 10^3/uL (1.8-7.7); Neutrophils % 59.5 %; Nucleated Red Blood Cells % 0 %; Platelet Count 349 10^3/cmm (157-399); Red Blood Count 3.95 10^6/uL (3.85-5.65); Red Cell Distribution Width 13.9 % (12.1-15.1); White Blood Count 11.56 10^3/uL (3.29-11.43)
--- NOTE | 2023-11-20 16:22 | PM.MISC ---
Miscellaneous Note Purpose of Documentation: Brief procedure note Note: Hazy, severe 70-80% stenosis in mid left circumflex artery old stent. This is consistent with ST elevation in the posterior leads. Patient underwent succesful revascularization with 1 stent. Plan: Continue dual antilatelet therpy with aspirin and plavix High intensity statin therapy Limited echocardiogram
[2023-11-20 16:23] LABS: Alanine Aminotransferase 8 U/L (0-33); Albumin Level 3.3 g/dL (3.5-5.2); Alkaline Phosphatase 77 U/L (35-105); Chloride 111 mmol/L (98-107); Potassium 5.2 mmol/L (3.5-5.1); Sodium 146 mmol/L (136-145)
[2023-11-20 16:26] LABS: Partial Thromboplastin Time 105.9 SECONDS (23.9-36.7)
[2023-11-20 16:30] LABS: Glucose Point of Care 314 mg/dL (70-110)
[2023-11-20] MEDS: sodium chloride 0.9% 1,000 ML 75 ML IV (16:36)
[2023-11-20 16:41] LABS: Lactic Sepsis W/Reflex 1.6 mmol/L (0.5-2.2)
[2023-11-20 16:48] LABS: Troponin(5th) Baseline 115 ng/L (0-10)
[2023-11-20 16:57] LABS: Anion Gap 11.7 (5-19); Aspartate Amino Transferase 7 U/L (0-32); Blood Urea Nitrogen 31 mg/dL (8-23); Calcium 8.8 mg/dL (8.5-10.5); Carbon Dioxide 23 mmol/L (22-29); Glomerular Filtration Rate 41.6 mL/min (90-130); Glucose 305 mg/dL (65-115); Magnesium 1.7 mg/dL (1.7-2.3); Osmolality Calculated 288 mOsm/kg (285-295); Total Bilirubin 0.2 mg/dL (0.15-1.2)
[2023-11-20 16:58] LABS: Globulin 2.6 g/dL (1.3-4.6); Total Protein 5.6 g/dL (6.6-8.7)
[2023-11-20] MEDS: insulin lispro 100 unit/1 mL SUBCUT ×2 (17:45→22:10)
[2023-11-20 18:41] LABS: Partial Thromboplastin Time 28.5 SECONDS (23.9-36.7)
[2023-11-20 18:42] LABS: Troponin 5 2HR 125.8 ng/L (0-10); Troponin 5 2HR Delta 10.8 ABS# (0-10)
--- NOTE | 2023-11-20 18:45 | ECG_ITS ---
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 Measurements Intervals Spade Rate: 67 P: 62 AK: 189 QRS: 63 QRSD: 95 T: 93 QT: 393 QTc: 417 Interpretive Statements SINUS RHYTHM Compared to ECG 11/20/2023 15:58:31 No significant changes Electronically Signed On 11-21-2023 17:52:54 CDT by Jaiden Newell M.D. [id number]
[2023-11-20 20:37] LABS: Glucose Point of Care 260 mg/dL (70-110)
[2023-11-20] MEDS: fentaNYL 50 mcg/mL INJ 2mL 25 MCG IVP (21:22)
[2023-11-20] MEDS: ticagrelor 90 mg Tablet PO (22:05)
[2023-11-20] MEDS: tamsulosin 0.4 mg Capsule 0.400000000000000022 MG PO (22:05)
[2023-11-20] MEDS: insulin glargine 100 units/1 mL 30 UNIT SUBCUT (22:10)
[2023-11-20 22:47] LABS: Troponin 5 6HR 127.6 ng/L (0-10); Troponin 5 6HR Delta 12.6 ng/L (0-12)
[2023-11-21] VITALS (123 sets, daily range): BP systolic 79–146; BP diastolic 33–94; PULSE 65–93; RESP 0–25; TEMP 36.5–36.8; O2SAT 79–100
[2023-11-21] MEDS: fentaNYL 50 mcg/mL INJ 2mL 25 MCG IVP (01:36)
[2023-11-21] MEDS: sodium chloride 0.9% 1,000 ML 75 ML IV (03:28)
[2023-11-21 04:25] LABS: Basophils % 0.2 %; Eosinophils # 1.5 10^3/uL (0.0-0.8); Eosinophils % 7.8 %; Hematocrit 29.8 % (36-47); Lymphocytes # 3.4 10^3/uL (0.8-4.8); Lymphocytes % 17.6 %; Mean Corpuscular HGB Conc 30.5 g/dL (30-55); Mean Corpuscular Volume 91.7 fl (85-98); Mean Platelet Volume 10.1 fL (7.4-10.4); Monocytes # 1.1 10^3/uL (0.2-0.9); Monocytes % 5.7 %; Neutrophils % 68.2 %; Nucleated Red Blood Cells % 0 %; Platelet Count 352 10^3/cmm (157-399); Red Blood Count 3.25 10^6/uL (3.85-5.65); White Blood Count 19.35 10^3/uL (3.29-11.43)
[2023-11-21 04:50] LABS: Blood Urea Nitrogen 30 mg/dL (8-23); Calcium 8.8 mg/dL (8.5-10.5); Carbon Dioxide 22 mmol/L (22-29); Chloride 105 mmol/L (98-107); Glomerular Filtration Rate 41.6 mL/min (90-130); Glucose 212 mg/dL (65-115); Magnesium 1.7 mg/dL (1.7-2.3); Osmolality Calculated 292 mOsm/kg (285-295); Sodium 135 mmol/L (136-145)
[2023-11-21 05:00] LABS: Creatinine Clr Calc Pharmacy 52.1029
[2023-11-21] MEDS: sodium chloride 0.9% 250 ML IV (05:23)
[2023-11-21] MEDS: HYDROcodone-acetaminophen 10-325 mg Tablet 1 TAB PO ×2 (05:59→21:42)
[2023-11-21] MEDS: levothyroxine 25 mcg Tablet PO (05:59)
[2023-11-21] MEDS: pantoprazole DR 40 mg Tablet PO (05:59)
--- NOTE | 2023-11-21 06:04 | PC.NURSE ---
late entry, left femoral sheath pulled at 2127, manual pressure held 20 minutes, dressing applied, no hematoma noted at this time, appx. 0100 patient requested bedpan for bowel movement, while on bedpan patient stated she felt a pop , large hematoma noted to left groin, Dr Newell notifed, pressure held for 20 minutes and sandbag applied, bp 128/50, hr 67, patient given 25 mcg fentenyl for pain, after pain medication sbp 90's-100's, appx 0330 pt had incontinent episode of diarrhea, after patient was cleaned up it was noted that her bp had dropped to 86/40, contacted Dr Newell again and received order for 250 cc NS bolus, sbp increased to 110's-120's, hospitalist contacted for order to resume home pain medication, patient currently resting in bed, bp 125/55, continue to monitor
[2023-11-21 06:25] LABS: Glucose Point of Care 342 mg/dL (70-110)
--- OUTSIDE RECORDS SUMMARY | 2023-11-21 07:07 | XMS_ITS | Patient Health Record ---
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 Name Role Phone [facility]k Primary Care Provider Ganesh Cobian Unavailable Unavailable Parker Pasquale Unavailable [phone] OlgaClaudia castrejon Unavailable [phone] Allergies Allergen (clinical drug ingredient) Drug/Non Drug Allergy documented on EMR Reaction Allergy Type Onset Date Status esomeprazole NexIUM Unknown Drug Allergy Acti ve clopidogrel Plavix Unknown Drug Allergy Activ e cefdinir Cefdinir Unknown Drug Allergy Active ciprofloxacin Ciprofloxacin rash Drug Allergy Active citalopram Citalopram Unknown Drug Allergy Activ e famotidine Famotidine Unknown Drug Allergy Activ e hyoscyamine Hyoscyamine Unknown Drug Allergy Act ross ibuprofen Ibuprofen Unknown Drug Allergy Active morphine Morphine Unknown Drug Allergy Active Results Component Value Reference Range Notes Echo Complete [id number] Reviewed date:03/21/2023 12:38:11 PM Interpretation: Performing Lab: Notes/Report: [id number] Echo Complete [id number] Reviewed date:03/20/2023 05:01:36 PM Interpretation: Performing Lab: Notes/Report: Cardiopulmonary Services Name: DAVIS HANDLEY Study Date: 03/20/2023 : 1960 Patient Location: [facility] Age: 62 yrs Gender: Female Height: 63 in Weight: 245 lb BP: 167/88 mmHg BSA: 2.1 m2 Reason For Study: Dyspnea Interpretation Summary Left ventricular systolic function is moderately reduced. There is mild concentric left ventricular hypertrophy. There are regional wall motion abnormalities as specified. The left atrium is moderately dilated. A dilated inferior vena cava suggests increased right atrial pressure. There is mild mitral annular calcification. There is mild to moderate mitral regurgitation. There is mild tricuspid regurgitation. Left Ventricular Function is estimated to be 35-40%. Left Ventricle The left ventricle is normal in size. There is mild concentric left ventricular hypertrophy. Left ventricular systolic function is moderately reduced. Left Ventricular Function is estimated to be 35-40%. There are regional wall motion abnormalities as specified. Atria The left atrium is moderately dilated. A dilated inferior vena cava suggests increased right atrial pressure. Great Vessels The aortic root is normal size. Pericardium/Pleural There is no pericardial effusion. There is no pleural effusion. Mitral Valve There is mild mitral annular calcification. There is mild to moderate mitral regurgitation. Aortic Valve The aortic valve is trileaflet. There is mild aortic valve sclerosis without evidence of stenosis. The aortic valve opens well. Tricuspid Valve The tricuspid valve is not well visualized, but is grossly normal. There is mild tricuspid regurgitation. Right ventricular systolic pressure is elevated at 40-50mmHg. Pulmonic Valve The pulmonic valve is not well visualized. MMode/2D Measurements & Calculations IVSd: 1.5 cm LVIDd: 5.6 cm FS: 10.4 % LVIDs: 5.0 cm EDV(Teich): 151.5 ml LVPWd: 0.78 cm ESV(Teich): 117.5 ml EF(Teich): 22.4 % Ao root diam: 3.5 cm asc Aorta Diam: 3.7 cm LVOT diam: 2.1 cm Ao root area: 9.6 cm2 LVOT area: 3.6 cm2 ACS: 1.8 cm LA dimension: 4.6 cm LVAd ap4: 33.1 cm2 SV(MOD-sp4): 32.5 ml SV(sp4-el): 35.9 ml LVLd ap4: 7.8 cm EDV(MOD-sp4): 114.0 ml EDV(sp4-el): 119.3 ml LVAs ap4: 26.3 cm2 LVLs ap4: 7.1 cm ESV(MOD-sp4): 81.6 ml ESV(sp4-el): 83.4 ml EF(MOD-sp4): 28.5 % EF(sp4-el): 30.1 % IVC Diam_phl: 2.6 cm Doppler Measurements & Calculations MV E max marisa: 140.2 cm/secMV V2 max: 176.2 cm/sec MV P1/2t max marisa: MV A max marisa: 118.1 cm/secMV max P.4 mmHg 139.8 cm/sec MV E/A: 1.2 MV V2 mean: MV P1/2t: 87.4 msec Lat Peak E 3.8 cm/sec MV mean P.8 mmHg MVA(P1/2t): 2.5 cm2 E/E Lateral E/e Med Peak E 4.3 cm/sec Ao V2 max: 160.7 cm/sec LV V1 max P.2 mmHg SV(LVOT): 79.6 ml Ao max P.3 mmHg LV V1 mean P.4 mmHg Ao V2 mean: 91.3 cm/sec LV V1 max: 114.1 cm/sec Ao mean P.1 mmHg LV V1 mean: 71.4 cm/sec Ao V2 VTI: 28.7 cm LV V1 VTI: 22.2 cm TOD(I,D): 2.8 cm2 TOD(V,D): 2.5 cm2 PA V2 max: 109.4 cm/sec TR max marisa: E/E PA max P.8 mmHg 309.1 cm/sec PA V2 mean: 59.6 cm/sec TR max P.2 mmHg PA mean P.8 mmHg PA V2 VTI: 17.9 cm Medial E/e Ordering Physician: Pasquale Canales Referring Physician: Clifton Lara Performed By: Ching Doyle [facility] Reason For Referral No Information Medications Medication SIG (Take, Route, Frequency, Duration) Notes Start Date End Date Status metFORMIN HCl 1000 MG TAKE ONE TABLET BY MOUTH EVERY DAY for 30 Active Isosorbide Mononitrate ER 30 mg TAKE ONE TABLET BY MOUTH EVERY DAY for 30 Active Ondansetron HCl 4 MG 1 tablet Orally Onc e a day Active rOPINIRole HCl 0.25 MG 1 tablet 1 to 3 h ours before bedtime Orally Once a day Active Digoxin 125 MCG 1 tablet Orally Once a day for 90 days 12/19/2022 Active HumaLOG KwikPen 100 unit/mL inject PER sliding scale SUBCUTANEOUSLY BEFORE meals AND AT bedtime for 30 Active Trulicity 1.5 MG/0.5ML inject 1.5mg SUBCUTANEOUSLY EVERY 7 DAYS for 28 Active Sertraline HCl 25 MG 1 tablet Orally Onc e a day Active buPROPion HCl ER (SR) 200 MG 1 tablet in the morning Orally twice daily Active HYDROcodone-Acetaminophen 10-325 MG 1 tablet as needed Orally every 6 hrs for 30 days 11/17/2023 12/16/2023 Active Triamterene-HCTZ 37.5-25 MG 1 tablet in the morning Orally Once a day Active Acetaminophen 650 MG/20.3ML as directed Orally Active Brilinta 90 MG 1 tablet Orally Twic e a day Active Calcium Carbonate 600 MG 1 tablet with f ood Orally Twice a day Active busPIRone HCl 15 MG 1 tablet Orally Twic e a day Active rOPINIRole HCl 0.5 mg TAKE ONE TABLET BY MOUTH At Bedtime for 30 Active Vitamin D (Ergocalciferol) 1.25 MG (63318 UT) 1 capsule Orally fridays Act ross traZODone HCl 50 mg TAKE ONE TABLET BY M OUTH At Bedtime for 30 Active Aspirin 81 MG 1 tablet Orally Once a day Active Tamsulosin HCl 0.4 mg TAKE ONE CAPSULE B Y MOUTH DAILY for 30 Active Potassium Chloride ER 10 MEQ 1 tablet with food Orally Once a day Active Social History Tobacco Use: Social History Observation Description Date Details (start date - stop date) Never Smoker NA - NA xTobacco Use/Smoking Question Answer Notes Are you a nonsmoker Alcohol Screen (Audit-C) Question Answer Notes Did you have a drink containing alcohol in the p ast year? No Points 0 Interpretation Negative Problems Problem Type SNOMED Code ICD Code Onset Dates Problem Status W/U Status Risk Notes Problem 366406116 Type 2 diabetes mellitus with unspecified complications (E11.8) Active confirmed Problem 90752082 Restless legs syndrome (G25.81) Active confirmed Problem 92047264 Obstructive slee p apnea (adult) (pediatric) (G47.33) Active confirmed Problem Hypertensive heart failure (13291441) Hypertensive heart disease with heart failure (I11.0) Active confirmed Problem STEMI - ST elevation myocardial infarction (226318304) ST elevation (STEMI) myocardial infarction involving other sites (I21.29) Active confirmed Problem Ischemic cardiomyopathy (481305521) Ischemic cardiomyopathy (I25.5) Active confirmed Problem Chronic total occlusion of coronary artery (336579708053931) Chronic total occlusion of coronary artery (I25.82) Active confirmed Problem Acute on chronic systolic heart failure (967732714) Acute on chronic systolic (congestive) heart failure (I50.23) Active confirmed Problem 183508018 Chronic diastoli c (congestive) heart failure (I50.32) Active confirmed Problem 888390861 Gastro-esophagea l reflux disease without esophagitis (K21.9) Active confirmed Problem 88669119 Age-related osteoporosis without current pathological fracture (M81.0) Active confirmed Problem Palpitations (41593905) Palpitations (R00.2) Active confirmed Problem Shortness of breath (725842870) Shortness of breath (R06.02) Active confirmed Problem Localized edema (672080228) Localized edema (R60.0) Active confirmed Problem Essential hypertension (27936554) Essential hypertension (I10) Active confirmed Problem 511958480 Type 2 diabetes mellitus without complication, unspecified whether penitentiary insulin use (E11.9) Active confirmed Problem 30291245 Constipation, unspecified constipation type (K59.00) Active confirmed Problem Atherosclerotic heart disease of [place] coronary artery without angina pectoris (051563524747893) Coronary artery disease involving [place] coronary artery of [place] heart without angina pectoris (I25.10) Active confirmed Problem 404717258 Atherosclerosis of [place] coronary artery of [place] heart without angina pectoris (I25.10) Active confirmed Problem 29952704 Hyperlipidemia, unspecified hyperlipidemia type (E78.5) Active confirmed Problem Diabetes mellitus without complication (151475843) Diabetes (E11.9) Active confirmed Problem Dizziness (368668884) Dizziness (R42) Active confirmed Problem Hypertension (34838425) HTN (hypertension) (I10) Active confirmed Problem Post percutaneous transluminal coronary angioplasty (905258497) History of coronary artery stent placement (Z95.5) Active confirmed Problem Post percutaneous transluminal coronary angioplasty (861057904) Hx of heart artery stent (Z95.5) Active confirmed Problem Atherosclerotic heart disease of [place] coronary artery without angina pectoris (934113432639472) Arteriosclerosis of coronary artery (I25.10) Active confirmed Problem Hyperlipidemia (24838134) Hyperlipidemia (E78.5) Active confirmed Problem Acute non-ST segment elevation myocardial infarction (622931445) Non-ST elevated myocardial infarction (non-STEMI) (I21.4) Active confirmed Problem 710219105 Atherosclerosis of [place] coronary artery of [place] heart with angina pectoris (I25.119) Active confirmed Vital Signs Heart Rate 85 /min 12/19/2022 Height-cm 160.02 cm 12/19/2022 Oximetry 98 % 12/19/2022 Blood pressure diastolic 70 mm Hg 12/19/2022 Weight-kg 111.77 kg 12/19/2022 Height 63 in 12/19/2022 Blood pressure systolic 148 mm Hg 12/19/2022 Weight 246.4 lbs 12/19/2022 BMI 43.64 kg/m2 12/19/2022 Encounters Encounter Location Date Provider Diagnosis [place] [id number] [place] [address] 09/08/2023 Rk Jerez [facility] [address] [place] [address] 10/13/2023 Rk Jerez [place] [address] [place] [address] 11/10/2023 Rk Jerez [facility] [address] [place] [phone] 12/19/2022 Pasquale Canales Atherosclerosis of [place] coronary artery of [place] heart with angina pectoris I25.119 ; History of coronary artery stent placement Z95.5 ; Chronic systolic (congestive) heart failure I50.22 ; Essential hypertension I10 ; Hyperlipidemia E78.5 ; Ischemic cardiomyopathy I25.5 ; Type 2 diabetes mellitus with unspecified complications E11.8 ; Shortness of breath R06.02 ; Dizziness R42 and Palpitations R00.2 [place] [id number] [place] [address] 05/02/[address] elevation (STEMI) myocardial infarction involving other sites I21.29 ; Hyperlipidemia E78.5 and Diabetes E11.9 [facility] [address] [place] [address] 05/12/2023 Rk Jerez History of coronary artery stent placement Z95.5 ; Chronic total occlusion of coronary artery I25.[address] elevation (STEMI) myocardial infarction involving other sites I21.29 [facility] [address] [place] [address] 06/09/2023 Rk Jerez History of coronary artery stent placement Z95.5 ; Coronary artery disease involving [place] coronary artery of [place] heart without angina pectoris I25.10 and Type 2 diabetes mellitus with unspecified complications E11.8 [facility] [address] [place] [address] 07/14/2023 Rk Jerez History of coronary artery stent placement Z95.5 ; Chronic total occlusion of coronary artery I25.82 and Coronary artery disease involving [place] coronary artery of [place] heart without angina pectoris I25.10 [facility] [address] [place] [address] 08/11/2023 Rk Jerez Coronary artery disease involving [place] coronary artery of [place] heart without angina pectoris I25.10 and Type 2 diabetes mellitus with unspecified complications E11.8 [facility] [address] [place] [phone] 11/24/2022 Pasquale Canales [facility] [address] [place] [phone] 01/19/2023 Pasquale [facility] [address] [place] [phone] 05/30/2023 Rk Jerez Sprain of anterior cruciate ligament of left knee, subsequent encounter S83.512D ; Other tear of medial meniscus, current injury, right knee, subsequent encounter S83.241D ; Atherosclerosis of [place] coronary artery of [place] heart without angina pectoris I25.10 ; Chronic diastolic (congestive) heart failure I50.32 ; Type 2 diabetes mellitus without complication, unspecified whether penitentiary insulin use E11.9 ; Constipation, unspecified constipation type K59.00 ; Hyperlipidemia, unspecified hyperlipidemia type E78.5 ; Gastro-esophageal reflux disease without esophagitis K21.9 ; Essential (primary) hypertension I10 ; Personal history of transient ischemic attack (TIA), and cerebral infarction without residual deficits Z86.73 ; Low back pain, unspecified back pain laterality, unspecified chronicity, unspecified whether sciatica present M54.50 ; Obstructive sleep apnea (adult) (pediatric) G47.33 ; Age-related osteoporosis without current pathological fracture M81.0 and Restless legs syndrome G25.81 [facility] [address] [place] [phone] 06/12/2023 Rk Jerez [facility] [address] [place] [phone] 06/28/2023 Rk Jerez [facility] [address] [place] [address] 07/20/2023 Rk Jerez [facility] [address] [place] [address] 07/24/2023 Rk Jerez [facility] [address] [place] [address] 08/01/2023 Rk Jerez [facility] [address] [place] [address] 10/02/2023 Rk Je[facility] [address] [place] [address] 11/14/2023 Rk Je[facility] [address] [place] [address] 11/16/2023 Rk Jerez Assessments Encounter Date Diagnosis (ICD Code) Assessment Notes Treat ment Notes Treatment Clinical Notes 12/19/2022 History of coronary artery stent placement (ICD-10 - Z95.5) 12/19/2022 Atherosclerosis of [place] coronary artery of [place] heart with angina pectoris (ICD-10 - I25.119) 05/02/2023 ST elevation (STEMI) myocardial infarction involving other sites (ICD-10 - I21.29) 05/02/2023 Hyperlipidemia (ICD- 10 - E78.5) 05/12/2023 Chronic total occlusion of coronary artery (ICD-10 - I25.82) 05/12/2023 History of coronary artery stent placement (ICD-10 - Z95.5) 05/30/2023 Other tear of medial meniscus, current injury, right knee, subsequent encounter (ICD-10 - S83.241D) 05/30/2023 Sprain of anterior cruciate ligament of left knee, subsequent encounter (ICD-10 - S83.512D) 06/09/2023 Coronary artery disease involving [place] coronary artery of [place] heart without angina pectoris (ICD-10 - I25.10) 06/09/2023 History of coronary artery stent placement (ICD-10 - Z95.5) 07/14/2023 History of coronary artery stent placement (ICD-10 - Z95.5) 08/11/2023 Coronary artery disease involving [place] coronary artery of [place] heart without angina pectoris (ICD-10 - I25.10) 08/11/2023 Type 2 diabetes mellitus with unspecified complications (ICD-10 - E11.8) 07/14/2023 Chronic total occlusion of coronary artery (ICD-10 - I25.82) 05/30/2023 Atherosclerosis of [place] coronary artery of [place] heart without angina pectoris (ICD-10 - I25.10) 06/09/2023 Type 2 diabetes mellitus with unspecified complications (ICD-10 - E11.8) 05/12/2023 ST elevation (STEMI) myocardial infarction involving other sites (ICD-10 - I21.29) 05/02/2023 Diabetes (ICD-10 - E11.9) 12/19/2022 Chronic systolic (congestive) heart failure (ICD-10 - I50.22) 12/19/2022 Essential hypertensi on (ICD-10 - I10) 05/30/2023 Chronic diastolic (congestive) heart failure (ICD-10 - I50.32) 07/14/2023 Coronary artery disease involving [place] coronary artery of [place] heart without angina pectoris (ICD-10 - I25.10) 05/30/2023 Type 2 diabetes mellitus without complication, unspecified whether penitentiary insulin use (ICD-10 - E11.9) 12/19/2022 Hyperlipidemia (ICD- 10 - E78.5) 12/19/2022 Ischemic cardiomyopathy (ICD-10 - I25.5) 05/30/2023 Constipation, unspecified constipation type (ICD-10 - K59.00) 05/30/2023 Hyperlipidemia, unspecified hyperlipidemia type (ICD-10 - E78.5) 12/19/2022 Type 2 diabetes mellitus with unspecified complications (ICD-10 - E11.8) 05/30/2023 Gastro-esophageal reflux disease without esophagitis (ICD-10 - K21.9) 12/19/2022 Shortness of breath (ICD-10 - R06.02) 05/30/2023 Essential (primary) hypertension (ICD-10 - I10) 12/19/2022 Dizziness (ICD-10 - R42) 12/19/2022 Palpitations (ICD-10 - R00.2) 05/30/2023 Personal history of transient ischemic attack (TIA), and cerebral infarction without residual deficits (ICD-10 - Z86.73) 05/30/2023 Low back pain, unspecified back pain laterality, unspecified chronicity, unspecified whether sciatica present (ICD-10 - M54.50) 05/30/2023 Obstructive sleep apnea (adult) (pediatric) (ICD-10 - G47.33) 05/30/2023 Age-related osteoporosis without current pathological fracture (ICD-10 - M81.0) 05/30/2023 Restless legs syndro me (ICD-10 - G25.81) 09/08/2023 Other Medications reviewed, orders signed and documented with nursing staff. Vitals taken and recorded at [facility]. 10/13/2023 Other Medications reviewed, orders signed and documented with nursing staff. Vitals taken and recorded at [facility]. 11/10/2023 Other Medications reviewed, orders signed and documented with nursing staff. Vitals taken and recorded at [facility]. 12/19/2022 Other CORONARY ARTERY DISEASE: She is not having any significant angina. Continue optimal medical therapy. Continue dual-antiplatelet therapy for at least another 6 months. Her most recent PCI was performed in October 2022 to the RCA. HYPERTENSION: The patient's blood pressure is well controlled. Continue losartan and carvedilol. HEART FAILURE: Continue Lasix. We will add digoxin for her palpitations. HYPERLIPIDEMIA: Continue Crestor 20 mg for high-intensity statin. Activity as tolerated. Follow up again in 4-6 months, sooner if there are any other issues 05/02/2023 Other Medications reviewed, orders signed and documented with nursing staff. Vitals taken and recorded at [facility]. 05/12/2023 Other Medications reviewed, orders signed and documented with nursing staff. Vitals taken and recorded at [facility]. 06/09/2023 Other Medications reviewed, orders signed and documented with nursing staff. Vitals taken and recorded at [facility]. 07/14/2023 Other Medications reviewed, orders signed and documented with nursing staff. Vitals taken and recorded at [facility]. 08/11/2023 Other Medications reviewed, orders signed and documented with nursing staff. Vitals taken and recorded at [facility]. Plan Of Treatment Pending Test Test Name Order Date Prothrombin Time 30585 09/13/2022 Comprehensive Metabolic Panel 23884 03/0 01/2023 Lipid Panel Reflex DLDL 56610, 24989 01/2023 Partial Thromboplastin Time 71357 2022 CBC Reflex Man Diff 49582, 79899 023 Electrocardiogram 12 Lead Tracing-[id number] 09/13/2022 Electrocardiogram (EKG) - 41020 09/14/19 Insurance Providers Payer Name Payer Address Payer Phone Subscriber Number Group Number Insured Name Patient Relationship to Insured Coverage Start Date Coverage End Date [facility] Medicare Dual Complete PPO [address] [address] [place] [phone] [id number] DAVIS HANDLEY Self - patient is the insured [place] Medicaid [address] [place] [address] [id number] DAVIS HANDLEY Self - patient is the insured Medical (General) History Medical History History ICD Code diabetes cad htn hyperlipidemia covid vaccine x 2 Surgical History Surgery Date(Month/Year) [facility] showing severe stenosis of LAD, distal RCA, patent stent in OM2. PCI of mid LAD 09/15/22 [facility] showing severe stenosis of LAD, distal RCA and acutely occluded OM2. PCI of OM2 09/05/22 [facility] 1. Successful JORDIN to pro ximal to mid RCA. 2. previous stents to RCA, LAD and circumflex patent. 3. subtotal 1st diagonal vessel that is chronic. 10/12/22 Hospitalization History Reason Date(Month/Year) CP 09/05/22 ED - CP 09/15/22
--- NOTE | 2023-11-21 07:56 | PC.PHAR ---
PT IS FROM [facility]O [facility]YLAH IS [facility] MED LIST THIS 11/21/23
[2023-11-21] MEDS: metoprolol succinate ER (24 HR) 50 mg Tablet 75 MG PO (08:14)
[2023-11-21] MEDS: isosorbide mononitrate ER 30 mg Tablet PO (08:14)
[2023-11-21] MEDS: acetaminophen 325 mg Tablet 650 MG PO (08:14)
[2023-11-21] MEDS: ticagrelor 90 mg Tablet PO ×2 (08:14→21:41)
[2023-11-21] MEDS: atorvastatin 40 mg Tablet PO (08:14)
[2023-11-21] MEDS: insulin lispro 100 unit/1 mL SUBCUT ×3 (08:15→21:40)
[2023-11-21] MEDS: aspirin 81 mg EC Tablet PO (08:15)
--- NOTE | 2023-11-21 09:53 | PC.CHAP ---
Pastoral Care Encounter/Spiritual Assessment Type of Contact [] Declined web coordinator visit [] Patient/Family/Request visit [] Outpatient visit [] Follow-up visit [] Physician referral [] Code/Alert [x] Routine visit [] Staff referral [] Actively dying [] Patient sleeping [] Family support [] [] Out of room [] Palliative care [] [] Receiving care in room [] Pre-surgical visit [] Trauma [] Long length of stay [] ICU visit [] Other: Relational/Emotional Strength [x] Patient feels connected with others/family/visitors/staff [] Distress [] Loneliness/isolation [] Abandonment Spirituality of Patient [x] Person of Lizette [] Attends Orthodoxy of their Lizette [x] Believes in Prayer [] Reads Bible or Catholic materials [] There are Spiritual issues to be addressed [place] Maid Interventions [x] Prayer [x] Active listening [x] Non-anxious presence [x] Spiritual/emotional support [] Crisis/trauma care [] Spiritual counseling [] Bereavement support [] Provided bereavement packet [] Provided Bible/devotional materials [] Provided toy/stuffed animal, coloring book to patient or family member [] Provided Communion [] Anointing/[place] [] Salvation [x] Completed spiritual assessment [] Other: Impact on Illness or Injury [] Angry [] Fearful [x] Anxious [] Often cries [] Exhaustion [] Unable to work [] Unable to attend buddhist [] Unable to walk/stand [] Unable to read [] Unable to drive [] Unable to eat/drink [] Unable to sleep [] Unable to be with family [] Patient intubated [] Other: Summary Time spent with patient 15 min
--- NOTE | 2023-11-21 10:01 | USCV_ITS ---
Watson Bridges Age: 63 Gender: F : 1960 Exam Date: 11/21/2023 10:20 Ordering Phys: Jaiden Newell M.D ([email or web address]) Technologist: Exam Location: [facility] [place] Indication: lt large lump lt groin over lt jammer hooker access site ? psuedo Findings large hematome over access site no blood flow in hematoma no psuedo anur nomal flow in jammer hooker , cfv and lpta . Conclusions no pseudoaneurysm Large soft tissue hematoma left groin at access site Femoral artery and vein are patent Carlos Prescott MD (Electronically Signed) Final Date: 21 Nov 2023 13:07 S
[2023-11-21] MEDS: sodium chloride 0.9% 1,000 ML 100 ML IV ×2 (11:10→22:42)
--- NOTE | 2023-11-21 11:28 | P.PN_ITS ---
Subjective 2 Subjective: Patient had developed large hematoma in left groin. No chest pain Vitals/I&O/Wt Last Vital Signs Temp 98.1 F 11/21/23 11:17 Pulse 73 11/21/23 11:17 Resp 8 L 11/21/23 11:17 BP 99/52 11/21/23 11:17 Pulse Ox 100 11/21/23 11:17 O2 Del Method Nasal Cannula 11/21/23 11:17 O2 Flow Rate 3 11/21/23 07:49 11/20/23 11/21/23 11/21/23 22:59 06:59 14:59 Intake Total 240 / 240 815 / 1055 1279.9 / 1279.9 Output Total 1300 / 1300 Balance 240 / 240 -485 / -245 1279.9 / 1279.9 Weight last 48 hrs Weight 235 lb 6.4 oz Weight 227 lb Weight 214 lb Physical Exam 2 Narrative: GENERAL: Patient is alert, awake and oriented x3. [] NECK: No jugular vein distension. [] HEENT: No cyanosis. No icterus. No pallor. [] HEART: Regular S1 and S2. No murmur, rub or gallop. [] LUNGS: Clear to auscultate bilaterally. [] CENTRAL NERVOUS SYSTEM: Grossly nonfocal. [] EXTREMITIES: Has large hematoma in left groin. Lower extremities with 1+ edema bilaterally. Urinary Catheter Management: Sahu: Cath Placed During This Visit: yes Reason for Continuing Indwelling Catheter: Required Immobilization for Trauma or Surgery or Anesthesia Urinary Catheter Date of Insertion: 11/20/23 Urinary Catheter Time of Insertion: 17:32 Data 11/22/23 02:06 11/22/23 02:06 A&P Assessment and plan (1) ST elevation myocardial infarction (STEMI): (2) Diabetes mellitus with cardiac complication: (3) Obesity: Plan Patient has presented with posterior ST elevation [place]. Coronary angiogram demonstrated disease mid left circumflex artery in-stent stenosis. She underwent successful revascularization with 1 stent. Continue aspirin and Brilinta. Patient developed a large hematoma posterior wall last night. Hemoglobin dropped to 6.9. Has received [address] scan and ultrasound also performed. No retroperitoneal bleed. However has a large sized hematoma. Limited echocardiogram performed that shows preserved LV systolic function. Monitor patient's hemoglobin and renal function and decide on possible discharge in 1 to 2 days. Attestations 2 Medical Necessity Statement*: Care expected to cross [address] Patient came with ST elevation ME underwent successful revascularization of left circumflex artery. Has developed hematoma post sheath pull. Currently getting management for that. Coding Level of Care Code Acute Code for [facility] Diagnoses ST elevation myocardial infarction (STEMI) I21.3 Diabetes mellitus with cardiac complication E11.59 Obesity E66.9
[2023-11-21 11:51] LABS: Basophils % 0.3 %; Eosinophils # 0.6 10^3/uL (0.0-0.8); Eosinophils % 4.1 %; Hematocrit 21.8 % (36-47); Lymphocytes # 3.2 10^3/uL (0.8-4.8); Lymphocytes % 20.8 %; Mean Corpuscular HGB Conc 31.7 g/dL (30-55); Mean Corpuscular Hemoglobin 28.9 pg (27-33); Mean Corpuscular Volume 91.2 fl (85-98); Mean Platelet Volume 10.5 fL (7.4-10.4); Monocytes % 6.4 %; Neutrophils # 10.35 10^3/uL (1.8-7.7); Neutrophils % 67.9 %; Nucleated Red Blood Cells % 0 %; Platelet Count 342 10^3/cmm (157-399); Red Blood Count 2.39 10^6/uL (3.85-5.65); Red Cell Distribution Width 14.2 % (12.1-15.1); White Blood Count 15.23 10^3/uL (3.29-11.43)
[2023-11-21 12:07] LABS: Glucose Point of Care 288 mg/dL (70-110)
--- NOTE | 2023-11-21 13:06 | P.PN_ITS ---
Subjective 2 Subjective: has left groin hematoma had bleeding overnight now has sandbag in place says she feels ok hb 6.9 2 u prbc ordered vitals stable at this time Vitals/I&O/Wt Last Vital Signs Temp 98.1 F 11/21/23 11:17 Pulse 73 11/21/23 11:17 Resp 8 L 11/21/23 11:17 BP 99/52 11/21/23 11:17 Pulse Ox 100 11/21/23 11:17 O2 Del Method Nasal Cannula 11/21/23 11:17 O2 Flow Rate 3 11/21/23 07:49 11/20/23 11/21/23 11/21/23 22:59 06:59 14:59 Intake Total 240 / 240 815 / 1055 1279.9 / 1279.9 Output Total 1300 / 1300 Balance 240 / 240 -485 / -245 1279.9 / 1279.9 Weight last 48 hrs Weight 106.776 kg Weight 102.965 kg Weight 97.069 kg Physical Exam 2 Narrative: Patient is awake and alert Chest pain free Nonfocal neuroexam Pleasant alert Euvolemic S1, S2 Hemodynamically stable Currently laying supine sangbag over left groin area Urinary Catheter Management: Sahu: Cath Placed During This Visit: yes Reason for Continuing Indwelling Catheter: Required Immobilization for Trauma or Surgery or Anesthesia Urinary Catheter Date of Insertion: 11/20/23 Urinary Catheter Time of Insertion: 17:32 Data 11/21/23 11:00 11/21/23 03:32 A&P Assessment and plan (1) Long-term use of high-risk medication: (2) Status post left heart catheterization (LHC): (3) ST elevation myocardial infarction (STEMI): (4) Status post coronary artery stent placement: (5) Dyspnea on exertion: (6) Diabetes mellitus with cardiac complication: (7) Morbid obesity: Plan STEMI s/p PCI with JORDIN Left groin hematoma Diabetes Mellitus insulin dependent HLD Hx B/L PE CLD BETH GERD Cardiac consistent carb diet Added Lantus 30 units along sliding scale Continue aspirin, Brilinta recent balloon angioplasty, today STEMI was called, patient undergone PCI Continue atorvastatin Patient also takes Imdur antianginal medication Will continue metoprolol succinate as well Add isosorbide antianginal regimen from tomorrow CheCK cbc q12H type and screen order 2 u rbc continue monitor vitals Check Ct abdomen retroperitoneal Full code Cardiac consistent carb diet DVT prophylaxis with heparin Attestations 2 Medical Necessity Statement*: Care expected to cross 2 midnights. Patient has presented with acute STEMI and will be undergoing emergent cardiac catheterization Diagnoses Long-term use of high-risk medication Z79.899 Status post left heart catheterization (LHC) Z98.890 ST elevation myocardial infarction (STEMI) I21.3 Status post coronary artery stent placement Z95.5 Dyspnea on exertion R06.00 Diabetes mellitus with cardiac complication E11.59 Morbid obesity E66.01
--- NOTE | 2023-11-21 13:11 | CT_ITS ---
WS: [id number] CT ABDOMEN PELVIS TECHNIQUE: Noncontrast CT of the abdomen and pelvis with coronal and sagittal reformatted images. CLINICAL INFORMATION: attention to retroperitoneam COMPARISON: None. DLP: 1271.[address] scans at [facility] use at least one of these dose optimization techniques: automated e xposure control; mA and/or kV adjustment per patient size (includes targeted exams where dose is matc hed to clinical indication); or iterative reconstruction. FINDINGS: Increased attenuation subcutaneous hematoma overlying the LEFT groin extending from the iliac wing in to the upper thigh subcutaneous soft tissues anteriorly. This measures approximately 5.9 x 11.6 x 14 .1 cm AP by transverse by craniocaudal. Associated induration and edema in the surrounding soft tissu es. Densely calcified femoral artery. No evidence of pseudoaneurysm on the recent ultrasound. No evidence of retroperitoneal hematoma or intra-abdominal hemorrhage Calcified granulomas LEFT lower lobe. Small esophageal hiatal hernia. Fatty atrophy of the pancreas. Splenic artery calcification. Adrenal glands are normal. Contrast visualized in the renal pelvis bila terally due to recent angiogram. Small LEFT renal cyst. No hydronephrosis. Normal caliber abdominal a isaac. Diastases of the rectus abdominis with contained abdominal wall hernia containing loops of nono bstructed large and small bowel. Sahu catheter. Sigmoid constipation. Moderate spondylitic changes l umbar spine. CT/CT abdomen pelvis wo con [id number] IMPRESSION: 1. Large subcutaneous soft tissue hematoma overlying the LEFT groin as seen on the recent ultrasound. No evidence of pseudoaneurysm on the recent ultrasound. No evidence of active hemorrhage. 2. No evidence of intra-abdominal or retroperitoneal hemorrhage. 3. No other acute findings. See chronic findings described above.
[2023-11-21 17:02] LABS: Glucose Point of Care 223 mg/dL (70-110)
[2023-11-21 20:50] LABS: Glucose Point of Care 319 mg/dL (70-110)
[2023-11-21] MEDS: insulin glargine 100 units/1 mL 30 UNIT SUBCUT (21:39)
[2023-11-21] MEDS: tamsulosin 0.4 mg Capsule 0.400000000000000022 MG PO (21:41)
[2023-11-22] VITALS (10 sets, daily range): BP systolic 102–132; BP diastolic 49–70; PULSE 68–83; RESP 13–19; TEMP 36.4–36.9; O2SAT 97–99
[2023-11-22 02:15] LABS: Basophils % 0.3 %; Eosinophils # 0.7 10^3/uL (0.0-0.8); Eosinophils % 5.3 %; Hematocrit 25.8 % (36-47); Lymphocytes # 3.9 10^3/uL (0.8-4.8); Lymphocytes % 29.6 %; Mean Corpuscular HGB Conc 32.9 g/dL (30-55); Mean Corpuscular Hemoglobin 29.2 pg (27-33); Mean Corpuscular Volume 88.7 fl (85-98); Mean Platelet Volume 9.3 fL (7.4-10.4); Monocytes % 7.8 %; Neutrophils # 7.43 10^3/uL (1.8-7.7); Neutrophils % 56.3 %; Nucleated Red Blood Cells % 0 %; Platelet Count 266 10^3/cmm (157-399); Red Blood Count 2.91 10^6/uL (3.85-5.65); Red Cell Distribution Width 14.3 % (12.1-15.1)
[2023-11-22 02:35] LABS: Anion Gap 13.4 (5-19); Blood Urea Nitrogen 35 mg/dL (8-23); Calcium 8.7 mg/dL (8.5-10.5); Carbon Dioxide 21 mmol/L (22-29); Chloride 107 mmol/L (98-107); Creatinine Clr Calc Pharmacy 43.2222; Glomerular Filtration Rate 32.8 mL/min (90-130); Glucose 163 mg/dL (65-115); Magnesium 1.7 mg/dL (1.7-2.3); Osmolality Calculated 296 mOsm/kg (285-295); Potassium 4.4 mmol/L (3.5-5.1); Sodium 137 mmol/L (136-145)
[2023-11-22] MEDS: heparin 5,000 unit/mL INJ 1 mL 5000 UNIT SUBCUT (03:50)
[2023-11-22] MEDS: levothyroxine 25 mcg Tablet PO (05:56)
[2023-11-22] MEDS: pantoprazole DR 40 mg Tablet PO (05:56)
[2023-11-22] MEDS: aspirin 81 mg EC Tablet PO (05:59)
[2023-11-22] MEDS: ticagrelor 90 mg Tablet PO ×2 (06:00→21:36)
[2023-11-22] MEDS: atorvastatin 40 mg Tablet PO (06:00)
[2023-11-22 06:29] LABS: Glucose Point of Care 157 mg/dL (70-110)
[2023-11-22] MEDS: insulin lispro 100 unit/1 mL SUBCUT ×3 (08:35→21:37)
[2023-11-22] MEDS: HYDROcodone-acetaminophen 10-325 mg Tablet 1 TAB PO ×2 (08:35→19:38)
[2023-11-22] MEDS: isosorbide mononitrate ER 30 mg Tablet PO (08:36)
[2023-11-22] MEDS: metoprolol succinate ER (24 HR) 50 mg Tablet 75 MG PO (08:36)
[2023-11-22 09:55] LABS: Basophils # 0.1 10^3/uL (0.0-0.1); Basophils % 0.4 %; Hematocrit 23.7 % (36-47); Lymphocytes # 3.1 10^3/uL (0.8-4.8); Lymphocytes % 25.7 %; Mean Corpuscular HGB Conc 32.5 g/dL (30-55); Mean Corpuscular Hemoglobin 28.5 pg (27-33); Mean Corpuscular Volume 87.8 fl (85-98); Monocytes # 0.9 10^3/uL (0.2-0.9); Monocytes % 7.6 %; Neutrophils # 7.02 10^3/uL (1.8-7.7); Neutrophils % 57.6 %; Nucleated Red Blood Cells % 0 %; Platelet Count 255 10^3/cmm (157-399); Red Cell Distribution Width 14.1 % (12.1-15.1); White Blood Count 12.19 10^3/uL (3.29-11.43)
--- NOTE | 2023-11-22 10:13 | PC.NURSE ---
Addendum entered by Calli Smyth RN 11/22/23 10:59: Received telephone order for Ativan 0.25mg IVP once which has been administered as ordered. Original Note: Patient is very weepy and anxious. Patient left leg is jerking patient has no control over this. Informed Dr Chang. Will continue to monitor.
--- NOTE | 2023-11-22 10:30 | P.PN_ITS ---
Subjective 2 Subjective: Patient is doing well. No chest pain. Hemoglobin is stable. Vitals/I&O/Wt Last Vital Signs Temp 97.9 F 11/22/23 07:01 Pulse 83 11/22/23 07:01 Resp 13 11/22/23 07:01 BP 125/69 11/22/23 07:01 Pulse Ox 98 11/22/23 07:37 O2 Del Method Room Air 11/22/23 07:37 O2 Flow Rate 3 11/21/23 07:49 11/21/23 11/22/23 11/22/23 22:59 06:59 14:59 Intake Total 1491.667 / 2771.567 305 / 3076.567 480 / 480 Output Total 750 / 750 275 / 1025 Balance 741.667 / 2021.567 30 / 2051.567 480 / 480 Weight last 48 hrs Weight 233 lb 5 oz Weight 235 lb 6.4 oz Weight 227 lb Weight 214 lb Physical Exam 2 Narrative: GENERAL: Patient is alert, awake and oriented x3. [] NECK: No jugular vein distension. [] HEENT: No cyanosis. No icterus. No pallor. [] HEART: Regular S1 and S2. No murmur, rub or gallop. [] LUNGS: Clear to auscultate bilaterally. [] CENTRAL NERVOUS SYSTEM: Grossly nonfocal. [] EXTREMITIES: Has large hematoma in left groin. Lower extremities with 1+ edema bilaterally. Urinary Catheter Management: Sahu: Cath Placed During This Visit: yes Reason for Continuing Indwelling Catheter: Other Urinary Catheter Date of Insertion: 11/20/23 Urinary Catheter Time of Insertion: 17:32 Data 11/23/23 05:30 11/23/23 05:30 A&P Assessment and plan (1) ST elevation myocardial infarction (STEMI): (2) Diabetes mellitus with cardiac complication: (3) Obesity: Plan Patient has presented with posterior ST elevation [place]. Coronary angiogram demonstrated disease mid left circumflex artery in-stent stenosis. She underwent successful revascularization with 1 stent. Continue aspirin and Brilinta. Hematoma is stable. Had blood transfusion yesterday. CT scan did not show retroperitoneal bleeding. Medicine team on board. Creatinine went up today. We will observe for today and if stable by tomorrow, can be discharged Attestations 2 Medical Necessity Statement*: Care expected to cross 2 midnights. Patient had come in with STEMI. Had successful revascularization of circumflex artery. Had hematoma formation. Getting management for that. Coding Level of Care Code Acute Code for [facility] Diagnoses ST elevation myocardial infarction (STEMI) I21.3 Diabetes mellitus with cardiac complication E11.59 Obesity E66.9
[2023-11-22] MEDS: LORazepam 2 mg/mL INJ 1 mL 0.25 MG IVP (10:57)
--- NOTE | 2023-11-22 11:24 | PC.NURSE ---
Dr Chang present on floor. Received orders to HOLD PRBCs and stop fluids presently. RBVO.
[2023-11-22 12:03] LABS: Glucose Point of Care 171 mg/dL (70-110)
--- NOTE | 2023-11-22 12:40 | P.PN_ITS ---
Subjective 2 Subjective: pt s/p 2 unit prbc repeat hb 7.7 this am laying in bed appears comfortable denies pain at this time Vitals/I&O/Wt Last Vital Signs Temp 97.9 F 11/22/23 11:24 Pulse 68 11/22/23 11:24 Resp 16 11/22/23 11:24 BP 102/53 11/22/23 11:24 Pulse Ox 97 11/22/23 11:24 O2 Del Method Nasal Cannula 11/22/23 11:24 O2 Flow Rate 3 11/21/23 07:49 11/21/23 11/22/23 11/22/23 22:59 06:59 14:59 Intake Total 1491.667 / 2771.567 305 / 3076.567 876.25 / 876.25 Output Total 750 / 750 275 / 1025 Balance 741.667 / 2021.567 30 / 1.567 876.25 / 876.25 Weight last 48 hrs Weight 105.829 kg Weight 106.776 kg Weight 102.965 kg Weight 97.069 kg Physical Exam 2 Narrative: Patient is awake and alert, however says would like to sleep Chest pain free Nonfocal neuroexam Pleasant alert Euvolemic S1, S2 Hemodynamically stable Currently laying supine left groin area, active bleeding Urinary Catheter Management: Sahu: Cath Placed During This Visit: yes Reason for Continuing Indwelling Catheter: Other Urinary Catheter Date of Insertion: 11/20/23 Urinary Catheter Time of Insertion: 17:32 Data 11/22/23 09:40 11/22/23 02:06 A&P Assessment and plan (1) Long-term use of high-risk medication: (2) Status post left heart catheterization (LHC): (3) ST elevation myocardial infarction (STEMI): (4) Status post coronary artery stent placement: (5) Dyspnea on exertion: (6) Diabetes mellitus with cardiac complication: (7) Morbid obesity: Plan STEMI s/p PCI with JORDIN Left groin hematoma, acute blood loss anemia Diabetes Mellitus insulin dependent HLD Hx B/L PE CLD BETH GERD Cardiac consistent carb diet Added Lantus 30 units along sliding scale Continue aspirin, Brilinta recent balloon angioplasty, today STEMI was called, patient undergone PCI Continue atorvastatin Patient also takes Imdur antianginal medication Will continue metoprolol succinate as well Add isosorbide antianginal regimen from tomorrow CheCK cbc q12H type and screen order 2 u rbc continue monitor vitals Check Ct abdomen retroperitoneal - neg for bleed - continue to monitor in hospital setting today - continue to check cbc - stop IV fluids Full code Cardiac consistent carb diet DVT prophylaxis : SCDS Attestations 2 Medical Necessity Statement*: Care expected to cross 2 midnights. Patient has presented with acute STEMI and will be undergoing emergent cardiac catheterization Diagnoses Long-term use of high-risk medication Z79.899 Status post left heart catheterization (LHC) Z98.890 ST elevation myocardial infarction (STEMI) I21.3 Status post coronary artery stent placement Z95.5 Dyspnea on exertion R06.00 Diabetes mellitus with cardiac complication E11.59 Morbid obesity E66.01
--- NOTE | 2023-11-22 13:52 | PC.NURSE ---
Due to decreased Hgb received order to stop heparin sq. RBVO
--- NOTE | 2023-11-22 13:54 | PC.NURSE ---
patient resting in bed with eyes closed with even, non-labored respirations. No anxiety observed presently.
[2023-11-22 17:32] LABS: Glucose Point of Care 159 mg/dL (70-110)
[2023-11-22 20:28] LABS: Glucose Point of Care 203 mg/dL (70-110)
[2023-11-22] MEDS: tamsulosin 0.4 mg Capsule 0.400000000000000022 MG PO (21:36)
[2023-11-22] MEDS: hyDROXYzine 25 mg Capsule PO (21:36)
[2023-11-22] MEDS: insulin glargine 100 units/1 mL 30 UNIT SUBCUT (21:37)
[2023-11-22 22:22] LABS: Basophils % 0.3 %; Eosinophils % 8.4 %; Hematocrit 22.1 % (36-47); Lymphocytes # 3.1 10^3/uL (0.8-4.8); Lymphocytes % 25.5 %; Mean Corpuscular Hemoglobin 29.8 pg (27-33); Mean Corpuscular Volume 90.2 fl (85-98); Mean Platelet Volume 9.7 fL (7.4-10.4); Monocytes # 0.9 10^3/uL (0.2-0.9); Monocytes % 7.6 %; Neutrophils % 57.5 %; Nucleated Red Blood Cells % 0 %; Platelet Count 271 10^3/cmm (157-399); Red Blood Count 2.45 10^6/uL (3.85-5.65); Red Cell Distribution Width 14.3 % (12.1-15.1)
[2023-11-23] VITALS (14 sets, daily range): BP systolic 121–150; BP diastolic 50–67; PULSE 69–80; RESP 12–21; TEMP 36.8–36.9; O2SAT 90–100; BMI 40.8
[2023-11-23] MEDS: sodium chloride 0.9% 100 mL Bag 50 ML IV (00:37)
--- NOTE | 2023-11-23 04:33 | PC.NURSE ---
patient hgb 7.3, Dr calvo ordered unit of PRBC that was started at 00:00 and was finished at 03:45. Patient had no reaction throughout transfusion.
[2023-11-23 05:57] LABS: Basophils # 0.1 10^3/uL (0.0-0.1); Basophils % 0.3 %; Eosinophils # 1.1 10^3/uL (0.0-0.8); Eosinophils % 7.5 %; Hematocrit 26.6 % (36-47); Lymphocytes # 5.6 10^3/uL (0.8-4.8); Lymphocytes % 37.8 %; Mean Corpuscular HGB Conc 33.1 g/dL (30-55); Mean Corpuscular Hemoglobin 29.5 pg (27-33); Mean Corpuscular Volume 89.3 fl (85-98); Monocytes # 1.2 10^3/uL (0.2-0.9); Monocytes % 8.3 %; Neutrophils # 6.72 10^3/uL (1.8-7.7); Neutrophils % 45.6 %; Nucleated Red Blood Cells % 0 %; Platelet Count 292 10^3/cmm (157-399); Red Blood Count 2.98 10^6/uL (3.85-5.65); Red Cell Distribution Width 14.2 % (12.1-15.1); White Blood Count 14.76 10^3/uL (3.29-11.43)
[2023-11-23] MEDS: aspirin 81 mg EC Tablet PO (06:08)
[2023-11-23] MEDS: levothyroxine 25 mcg Tablet PO (06:08)
[2023-11-23] MEDS: atorvastatin 40 mg Tablet PO (06:08)
[2023-11-23] MEDS: pantoprazole DR 40 mg Tablet PO (06:08)
[2023-11-23 06:22] LABS: Blood Urea Nitrogen 26 mg/dL (8-23); Calcium 8.5 mg/dL (8.5-10.5); Carbon Dioxide 22 mmol/L (22-29); Chloride 108 mmol/L (98-107); Glomerular Filtration Rate 38.2 mL/min (90-130); Glucose 81 mg/dL (65-115); Magnesium 1.7 mg/dL (1.7-2.3); Osmolality Calculated 292 mOsm/kg (285-295); Sodium 139 mmol/L (136-145)
[2023-11-23] MEDS: ticagrelor 90 mg Tablet PO (06:34)
[2023-11-23 06:37] LABS: Slide Review Slide Review Perform
[2023-11-23 06:48] LABS: Glucose Point of Care 111 mg/dL (70-110)
[2023-11-23] MEDS: HYDROcodone-acetaminophen 10-325 mg Tablet 1 TAB PO ×2 (08:19→13:52)
[2023-11-23] MEDS: metoprolol succinate ER (24 HR) 50 mg Tablet 75 MG PO (08:19)
[2023-11-23] MEDS: isosorbide mononitrate ER 30 mg Tablet PO (08:19)
--- NOTE | 2023-11-23 10:04 | PC.NURSE ---
Assisted patient up to chair using sit to stand. Patient stated, This feels wonderful. Patient in chair eating breakfast. Denies pain or other needs presently.
[2023-11-23 10:40] LABS: Glucose Point of Care 120 mg/dL (70-110)
[2023-11-23 10:59] LABS: Basophils % 0.3 %; Eosinophils # 0.7 10^3/uL (0.0-0.8); Eosinophils % 5.6 %; Hematocrit 28.8 % (36-47); Lymphocytes # 2.7 10^3/uL (0.8-4.8); Lymphocytes % 23.2 %; Mean Corpuscular HGB Conc 33.3 g/dL (30-55); Mean Corpuscular Hemoglobin 29.7 pg (27-33); Mean Corpuscular Volume 89.2 fl (85-98); Mean Platelet Volume 9.6 fL (7.4-10.4); Monocytes # 0.9 10^3/uL (0.2-0.9); Neutrophils # 7.35 10^3/uL (1.8-7.7); Neutrophils % 62.3 %; Nucleated Red Blood Cells % 0 %; Platelet Count 293 10^3/cmm (157-399); Red Blood Count 3.23 10^6/uL (3.85-5.65); Red Cell Distribution Width 14.5 % (12.1-15.1)
--- NOTE | 2023-11-23 11:11 | PC.NURSE ---
Assisted patient back to bed x3 assist and sit to stand. Patient fearful but tolerated well.
--- NOTE | 2023-11-23 11:42 | PM.DCS ---
Discharge Providers Date of Admission: 11/20/23 13:42 Date of Discharge: November 23, 2023 Attending Provider at Admission: Jaiden Newell M.D Attending Provider at Discharge: Jaiden Newell M.D Primary Care Provider: Niko Jerez MD Diagnoses at Discharge Discharge Diagnosis (1) ST elevation myocardial infarction (STEMI): Status: Resolved (2) Diabetes mellitus with cardiac complication: Status: Acute (3) Obesity: Status: Acute (4) Hematoma: Status: Acute Reason for Visit Reason for Visit: CHEST PAIN Brief History: 63 year old female with past medical history of CAD with multiple stents, recent balloon angioplasty of RCA, PDA, mid and distal left circumflex artery prior stents has been brought by EMS secondary to severe substernal chest pain. It is radiating to left arm. EKG performed by EMS demonstrated ST elevations in posterior leads V7/8/[address] depressions. clinical lab scientist was emergently activated. Hospital Course Hospital Course Coronary angiogram demonstrated disease with stent restenosis of mid left circumflex artery stent. Likely thrombus. Underwent successful revascularization with 1 stent. Post sheath pull from left common femoral artery, patient developed hematoma. CTA ruled out retroperitoneal bleed. Patient required blood transfusion. Was observed in the hospital and as labs were stable was discharged in a stable condition. Medicine team was on board for management of medical issues Physical Exam Narrative: GENERAL: Patient is alert, awake and oriented x3. [] NECK: No jugular vein distension. [] HEENT: No cyanosis. No icterus. No pallor. [] HEART: Regular S1 and S2. No murmur, rub or gallop. [] LUNGS: Clear to auscultate bilaterally. [] CENTRAL NERVOUS SYSTEM: Grossly nonfocal. [] EXTREMITIES: Has large hematoma in left groin. Improved from before. Urinary Catheter Management: Sahu: Cath Placed During This Visit: yes Reason for Continuing Indwelling Catheter: Accurate Measurement of Urinary Output in Critically Ill Patients Urinary Catheter Date of Insertion: 11/20/23 Urinary Catheter Time of Insertion: 17:32 Discharge Data Studies Completed and Pending Completed Studies During Hospitalization Category Date Time Status CT abdomen pelvis wo con [id number] Stat Cat Scan 11/21/23 13:11 Completed CV. 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 Large subcutaneous soft tissue hematoma overlying the LEFT groin as seen on the recent ultrasound. No evidence of pseudoaneurysm on the recent ultrasound. No evidence of active hemorrhage. 2. No evidence of intra-abdominal or retroperitoneal hemorrhage. 3. No other acute findings. See chronic findings described above. Laboratory Results WBC 11.80 10^3/uL (3.29-11.43) H 11/23/23 10:41 Corrected WBC Cancelled 11/21/23 11:00 RBC 3.23 10^6/uL (3.85-5.65) L 11/23/23 10:41 Hgb 9.60 g/dL (11.27-16.99) L 11/23/23 10:41 Hct 28.8 % (36-47) L 11/23/23 10:41 MCV 89.2 fl (85-98) 11/23/23 10:41 MCH 29.7 pg (27-33) 11/23/23 10:41 MCHC 33.3 g/dL (30-55) 11/23/23 10:41 RDW 14.5 % (12.1-15.1) 11/23/23 10:41 Plt Count 293 10^3/cmm (157-399) 11/23/23 10:41 MPV 9.6 fL (7.4-10.4) 11/23/23 10:41 Gran % Cancelled 11/21/23 11:00 Neut % (Auto) 62.3 % 11/23/23 10:41 Lymph % (Auto) 23.2 % 11/23/23 10:41 [place] % (Auto) 8.0 % 11/23/23 10:41 Eos % (Auto) 5.6 % 11/23/23 10:41 Baso % (Auto) 0.3 % 11/23/23 10:41 Neut # (Auto) 7.35 10^3/uL (1.8-7.7) 11/23/23 10:41 Lymph # (Auto) 2.7 10^3/uL (0.8-4.8) 11/23/23 10:41 [place] # (Auto) 0.9 10^3/uL (0.2-0.9) 11/23/23 10:41 Eos # (Auto) 0.7 10^3/uL (0.0-0.8) 11/23/23 10:41 Baso # (Auto) 0.0 10^3/uL (0.0-0.1) 11/23/23 10:41 Absolute Gran (auto) Cancelled 11/21/23 11:00 Nucleated RBC % (auto) 0 % 11/23/23 10:41 Nucleated RBCs # 0.0 /100WBC 11/23/23 10:41 APTT 28.5 SECONDS (23.9-36.7) D 11/20/23 18:06 Sodium 139 mmol/L (136-145) 11/23/23 05:30 Potassium 4.0 mmol/L (3.5-5.1) 11/23/23 05:30 Chloride 108 mmol/L (98-107) H 11/23/23 05:30 Carbon Dioxide 22 mmol/L (22-29) 11/23/23 05:30 Anion Gap 13.0 (5-19) 11/23/23 05:30 BUN 26 mg/dL (8-23) H 11/23/23 05:30 Creatinine 1.4 mg/dL (0.5-0.9) H 11/23/23 05:30 GFR Calculation 38.2 mL/min (90-130) L 11/23/23 05:30 Glucose 81 mg/dL (65-115) 11/23/23 05:30 POC Glucose 120 mg/dL (70-110) H 11/23/23 10:33 Calculated Osmolality 292 mOsm/kg (285-295) 11/23/23 05:30 Lactic Acid 1.6 mmol/L (0.5-2.2) 11/20/23 15:55 Calcium 8.5 mg/dL (8.5-10.5) 11/23/23 05:30 Magnesium 1.7 mg/dL (1.7-2.3) 11/23/23 05:30 Total Bilirubin 0.2 mg/dL (0.15-1.2) 11/20/23 15:55 AST 7 U/L (0-32) 11/20/23 15:55 ALT 8 U/L (0-33) 11/20/23 15:55 Alkaline Phosphatase 77 U/L (35-105) 11/20/23 15:55 Troponin T Baseline 115 ng/L (0-10) H* 11/20/23 15:55 Troponin T 120 Minute 125.8 ng/L (0-10) H 11/20/23 18:06 Delta Troponin T 10.8 ABS# (0-10) H* 11/20/23 18:06 Troponin T Hi Sens 6Hr 127.6 ng/L (0-10) H 11/20/23 21:49 Troponin T Hi Sens 6Hr Delta 12.6 ng/L (0-12) H* 11/20/23 21:49 Total Protein 5.6 g/dL (6.6-8.7) L 11/20/23 15:55 Albumin 3.3 g/dL (3.5-5.2) L 11/20/23 15:55 Globulin 2.6 g/dL (1.3-4.6) 11/20/23 15:55 Blood Type O Positive 11/21/23 11:00 Rho(D) Type Rh positive 11/21/23 11:00 Antibody Screen Negative 11/21/23 11:00 Crossmatch See Detail 11/21/23 11:00 Vitals Last Vital Signs Temp 98.4 F 11/23/23 07:32 Pulse 77 11/23/23 07:32 Resp 18 11/23/23 07:32 BP 150/59 11/23/23 07:32 Pulse Ox 95 11/23/23 07:32 O2 Del Method Room Air 11/23/23 07:32 O2 Flow Rate 2 11/23/23 00:00 Discharge Plan Discharge Patient Disposition: Xfer SNF Condition: Stable Prescriptions: New isosorbide mononitrate 30 mg Tablet Extended Release 24 Hr 30 mg PO DAILY Qty: 30 0RF hydrochlorothiazide 25 mg tablet 25 mg PO QAM Qty: 30 0RF Continued (DME) walker with seat and brakes See Rx Instructions .Route .MEDSUPPLY Qty: 1 0RF Rx Instructions: As directed (DME) InPen (for Humalog) Insulin Pen See Rx Instructions .Route Qty: 150 0RF Rx Instructions: qid to inject insulin (DME) diabetic shoes and inserts See Rx Instructions .Route .MEDSUPPLY Qty: 1 0RF Rx Instructions: As directed (DME) lancets [BD Ultra Fine Lancets] 33 gauge misc See Rx Instructions .Route Qty: 100 1RF Rx Instructions: As directed (DME) insulin syringe-needle U-100 [BD Veo Insulin Syringe UF] 1/2 mL 31 gauge x 15/64 syringe See Rx Instructions .ROUTE .MEDSUPPLY Qty: 100 2RF Rx Instructions: As directed pantoprazole 40 mg tablet,delayed release (DR/EC) 40 mg PO QAM insulin glargine [Lantus Solostar U-100 Insulin] 100 unit/mL (3 mL) insulin pen 32 unit SUBCUT QAM ondansetron HCl 4 mg tablet 4 mg PO BID PRN (Reason: Nausea) hydrocodone-acetaminophen 10-325 mg tablet 1 tab PO Q6H PRN (Reason: Pain, Moderate) Ozempic 0.25 mg or 0.5 mg (2 mg/3 mL) pen injector 0.5 mg SUBCUT Q7D tamsulosin 0.4 mg capsule 0.4 mg PO BEDTIME@22 ropinirole 0.5 mg tablet 0.5 mg PO BEDTIME@22 Qty: 30 2RF (DME) oxygen tubing See Rx Instructions .Route .MEDSUPPLY Qty: 1 0RF Rx Instructions: [email or web address] [place] [place] to RIGHT See Rx Instructions .Route .MEDSUPPLY Qty: 1 0RF Rx Instructions: [place] directed [place] [place] wheel-chair with foot rest See Rx Instructions .Route .MEDSUPPLY Qty: 1 0RF Rx Instructions: As directed by HOME levothyroxine 25 mcg capsule 25 mcg PO QAM sertraline [Zoloft] 25 mg tablet 25 mg PO BEDTIME trazodone 50 mg tablet 50 mg PO BEDTIME (DME) Accu-Chek Guide test strips Strip See Rx Instructions .Route Qty: 100 5RF Rx Instructions: As directed; to test 5 x daily (DME) Incontinence Supplies See Rx Instructions .Route .MEDSUPPLY Qty: 1 0RF Rx Instructions: As directed calcium carbonate [Tums] 200 mg calcium (500 mg) Tablet,Chewable 1,000 mg PO DAILY PRN (Reason: Stomach Upset) nitroglycerin [Nitrostat] 0.4 mg Tablet, Sublingual 0.4 mg SUBLINGUAL Q5M PRN (Reason: Chest Pain) Rx Instructions: do not exceed 3 doses per episode potassium chloride 10 mEq tablet extended release 10 meq PO DAILY@07 metformin 1,000 mg tablet 1,000 mg PO DAILY Hold Instructions: Resume on 11/18/23. cholecalciferol (vitamin D3) 1,250 mcg (50,000 unit) capsule 50,000 unit PO Q7D Rx Instructions: Takes on Fridays isosorbide mononitrate 30 mg tablet extended release 24 hr 30 mg PO DAILY Qty: 90 0RF bupropion HCl 200 mg tablet sustained-release 12 hr 200 mg PO BID insulin lispro [Humalog KwikPen Insulin] 100 unit/mL insulin pen 29 sliding scale dose SUBCUT TID acetaminophen 650 mg Tablet Extended Release 1,300 mg PO Q8H PRN (Reason: Pain) magnesium hydroxide [Milk of Magnesia] 400 mg/5 mL Suspension 30 ml PO DAILY PRN (Reason: Constipation) buspirone 15 mg tablet 15 mg PO BID atorvastatin 40 mg tablet 40 mg PO DAILY@07 Qty: 30 0RF aspirin 81 mg Tablet,Delayed Release (Dr/Ec) 81 mg PO DAILY@07 Qty: 60 0RF Brilinta 90 mg tablet 90 mg PO BID@, Qty: 120 0RF Discontinued amoxicillin-pot clavulanate 875-125 mg tablet 1 tab PO BID Qty: 10 0RF digoxin 125 mcg (0.125 mg) tablet 125 mcg PO .AT NOON triamterene-hydrochlorothiazid 37.5-25 mg tablet 2 tab PO .AT NOON No Action furosemide 20 mg tablet 20 mg PO DAILY Qty: 30 5RF metoprolol succinate 50 mg tablet extended release 24 hr 75 mg PO DAILY Qty: 30 3RF Discharge Orders: Discharge Order (Routine); Ordered 11/23/23 Ordered By: Jaiden Newell Referrals: Niko Jerez MD [Primary Care Provider] - Farrah Smith FNP [Nurse Practitioner] - 11/28/23 2:00 pm Discharge Diet: Cardiac and Diabetic Patient Instructions: Hydrochlorothiazide (By mouth) (Hydrocot, Microzide), Isosorbide Mononitrate (By mouth) (Imdur, Imdur ER, Ismo), Coronary Angioplasty (DC), Post Angiogram Home Care Instructions, Post Heart Attack Stoplight Discharge Attestations Time Spent in Discharge Care*: greater than 30 min Status at Discharge: Cognitive status at discharge: cognitively intact, Behavioral status at discharge: cooperative, Quality Metrics Clinical Quality Measures [ Acute Myocardial Infaction { Clinical Trial Participant: No; Contraindication to aspirin: None; Aspirin prescribed; Contraindication to statin: None; Statin prescribed; Contraindication to PCI: None; PCI performed;}] Coding Level of Care Code Acute Code for [facility] Fwd Diagnoses ST elevation myocardial infarction (STEMI) I21.3 Diabetes mellitus with cardiac complication E11.59 Obesity E66.9 Hematoma T14.8XXA
--- NOTE | 2023-11-23 12:04 | P.PN_ITS ---
Subjective 2 Subjective: Required another unit of blood last night. Hemoglobin 7.30. Repeat hemoglobin 8.5 subsequently 9.6. Hemoglobin stable. Left thigh area has mild ecchymosis however no evidence of acute bleed at this time. Patient appears comfortable in bed. She states she is hurting slightly the area is tender to palpation however otherwise she is okay. Vitals/I&O/Wt Last Vital Signs Temp 98.4 F 11/23/23 07:32 Pulse 77 11/23/23 07:32 Resp 18 11/23/23 07:32 BP 150/59 11/23/23 07:32 Pulse Ox 95 11/23/23 07:32 O2 Del Method Room Air 11/23/23 07:32 O2 Flow Rate 2 11/23/23 00:00 11/22/23 11/23/23 11/23/23 22:59 06:59 14:59 Intake Total 480 / 1356.25 300 / 1656.25 Output Total 2000 / 2000 1000 / 3000 150 / 150 Balance -1520 / -643.75 -700 / -1343.75 -150 / -150 Weight last 48 hrs Weight 104.525 kg Weight 105.829 kg Physical Exam 2 Narrative: Patient is awake and alert, says she is comfortable at this time. Chest pain free Nonfocal neuroexam Pleasant alert Euvolemic S1, S2 Hemodynamically stable Currently laying supine left groin area, mild tenderness to palpation around that area. No fluctuance noted. Mild ecchymosis about 4 inches around the groin angiogram insertion site but seems to be resolving. Urinary Catheter Management: Sahu: Cath Placed During This Visit: yes Reason for Continuing Indwelling Catheter: Accurate Measurement of Urinary Output in Critically Ill Patients Urinary Catheter Date of Insertion: 11/20/23 Urinary Catheter Time of Insertion: 17:32 Data 11/23/23 10:41 11/23/23 05:30 A&P Assessment and plan (1) Long-term use of high-risk medication: (2) Status post left heart catheterization (LHC): (3) ST elevation myocardial infarction (STEMI): (4) Status post coronary artery stent placement: (5) Dyspnea on exertion: (6) Diabetes mellitus with cardiac complication: (7) Morbid obesity: Plan STEMI s/p PCI with JORDIN Left groin hematoma, acute blood loss anemia Diabetes Mellitus insulin dependent HLD Hx B/L PE CLD BETH GERD Cardiac consistent carb diet Added Lantus 30 units along sliding scale Continue aspirin, Brilinta recent balloon angioplasty, today STEMI was called, patient undergone PCI Continue atorvastatin Patient also takes Imdur antianginal medication continue metoprolol succinate as well continue isosorbide antianginal regimen from tomorrow s/p 2 unit prbc total continue monitor vitals Check Ct abdomen retroperitoneal - neg for bleed - cHB is stable - ok to dc from medical standpoint. Full code Cardiac consistent carb diet DVT prophylaxis : SCDS Attestations 2 Medical Necessity Statement*: defer to primary team Diagnoses Long-term use of high-risk medication Z79.899 Status post left heart catheterization (LHC) Z98.890 ST elevation myocardial infarction (STEMI) I21.3 Status post coronary artery stent placement Z95.5 Dyspnea on exertion R06.00 Diabetes mellitus with cardiac complication E11.59 Morbid obesity E66.01
[2023-11-23 13:33] LABS: SARS Covid-2 Antigen negative (Negative)
--- NOTE | 2023-11-23 13:41 | PC.NURSE ---
Report called to Silvia at [facility]. Patient made ready to go. Patient to be taken by [facility] by wheelchair.
--- NOTE | 2023-11-23 14:09 | PC.NURSE ---
Patient take via wheelchair to private vehicle.
== END 2023-11-23 14:10 | disposition skilled nursing facility (03) | DRG 321 ==
LOC: ER 13:04 → CSU 14:20
PROVIDERS: Internal Medicine; Admitting Provider Internal Medicine; Emergency Provider Emergency Medicine; PCP Internal Medicine; Visit Provider Internal Medicine
PROC: 027034Z Dilation of Coronary Artery, One Artery with Drug-eluting Intraluminal Device, Percutaneous Approach (ICD-10-PCS; principal; 2023-11-20 13:00)
PROC: 027034Z Dilation of Coronary Artery, One Artery with Drug-eluting Intraluminal Device, Percutaneous Approach (ICD-10-PCS; 2023-11-20 13:00)
DX: T82.855A Stenosis of coronary artery stent, initial encounter (principal); I21.21 ST elevation (STEMI) myocardial infarction involving left circumflex coronary artery; I13.0 Hypertensive heart and chronic kidney disease with heart failure and stage 1 through stage 4 chronic kidney disease, or unspecified chronic kidney disease; Z68.41 Body mass index [BMI] 40.0-44.9, adult; I97.630 Postprocedural hematoma of a circulatory system organ or structure following a cardiac catheterization; Y71.8 Miscellaneous cardiovascular devices associated with adverse incidents, not elsewhere classified; I25.10 Atherosclerotic heart disease of native coronary artery without angina pectoris; E11.22 Type 2 diabetes mellitus with diabetic chronic kidney disease; N18.9 Chronic kidney disease, unspecified; I50.9 Heart failure, unspecified; E11.59 Type 2 diabetes mellitus with other circulatory complications; E11.42 Type 2 diabetes mellitus with diabetic polyneuropathy; F32.A Depression, unspecified; F41.9 Anxiety disorder, unspecified; E66.01 Morbid (severe) obesity due to excess calories; E78.5 Hyperlipidemia, unspecified; N30.20 Other chronic cystitis without hematuria; M54.50 Low back pain, unspecified; G89.29 Other chronic pain; G47.33 Obstructive sleep apnea (adult) (pediatric); K21.9 Gastro-esophageal reflux disease without esophagitis; G25.81 Restless legs syndrome; M81.0 Age-related osteoporosis without current pathological fracture; I25.2 Old myocardial infarction; Z79.4 Long term (current) use of insulin; Z79.84 Long term (current) use of oral hypoglycemic drugs; Z79.85 Long-term (current) use of injectable non-insulin antidiabetic drugs; Z95.5 Presence of coronary angioplasty implant and graft; Z86.711 Personal history of pulmonary embolism; Z86.73 Personal history of transient ischemic attack (TIA), and cerebral infarction without residual deficits; Z90.49 Acquired absence of other specified parts of digestive tract
CPT/HCPCS: 36415; 36416; 36430; 51702; 74176; 80048; 80053; 82962; 83605; 83735; 84484; 85025; 85347; 85730; 86850; 86900; 86920; 87426; 93005; 93308; 93454; 93926; 94664; 96372; 96374; 96375; 96376; 99152; 99153; C1725; C1769; C1874; C1887; C1894; C9600; J1644; J1815; J2060; J2250; J3010; J3490; J7030; J7050; P9040; Q9967

== ENCOUNTER → 2023-11-28 14:46 | Outpatient (BNVA) | payer OTHER, MEDICAID, SELFPAY | PROVIDERS: PCP Internal Medicine; Visit Provider Nurse Practitioner Family | DX: I25.10 Atherosclerotic heart disease of native coronary artery without angina pectoris (principal); I10 Essential (primary) hypertension | CPT/HCPCS: 36415; 80048; 83880; 85025; 99214 ==

== ENCOUNTER → 2023-12-12 14:19 | Outpatient (BNVA) | payer OTHER, MEDICAID, SELFPAY | PROVIDERS: PCP Internal Medicine; Visit Provider Orthopaedic Surgery | DX: Z98.890 Other specified postprocedural states (principal); M54.2 Cervicalgia | CPT/HCPCS: 72040; 99024 ==

== ENCOUNTER → 2023-12-14 11:15 | Outpatient (BNVA) | payer OTHER, MEDICAID, SELFPAY | PROVIDERS: PCP Internal Medicine; Visit Provider Psychiatry & Neurology Neurology | DX: R55 Syncope and collapse (principal); R53.1 Weakness | CPT/HCPCS: 99212 ==

== ENCOUNTER 2023-12-20 13:09 | Observation (INO) | payer OTHER, MEDICAID, SELFPAY ==
[2023-12-20] VITALS (13 sets, daily range): BP systolic 119–147; BP diastolic 61–79; PULSE 78–93; RESP 15–25; TEMP 36.7–37; O2SAT 93–99; BMI 38.4
--- NOTE | 2023-12-20 13:14 | ECG_ITS ---
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 Measurements Intervals [place] Rate: 93 P: 46 CA: 155 QRS: 15 QRSD: 101 T: 76 QT: 364 QTc: 454 Interpretive Statements SINUS RHYTHM INFERIOR MYOCARDIAL INFARCTION , PROBABLY OLD [40+ ms Q WAVE AND/OR ST/T ABNORMALITY IN II/aVF] Compared to ECG 11/20/2023 18:45:58 Myocardial infarct finding now present Electronically Signed On 12-20-2023 17:06:04 CDT by Jaiden Newell M.D. [id number] f
--- NOTE | 2023-12-20 13:14 | XRR_ITS ---
PROCEDURE INFORMATION: Exam: XR Chest Exam date and time: 12/20/2023 1:19 PM Age: 63 years old Clinical indication: Shortness of breath and other: Pain; Additional info: Chest pain TECHNIQUE: Imaging protocol: Radiologic exam of the chest. Views: 1 view. COMPARISON: CR XR chest 1V portable [id number] 11/14/2023 2:13 PM FINDINGS: Lungs: Unremarkable. No consolidation. Pleural spaces: Unremarkable. No pleural effusion. No pneumothorax. Heart/Mediastinum: Unremarkable. No cardiomegaly. Bones/joints: Degenerative changes in the thoracic spine. XR/XR chest 1V portable [id number] IMPRESSION: No acute findings.
[2023-12-20 13:49] LABS: Basophils # 0.1 10^3/uL (0.0-0.1); Basophils % 0.6 %; Eosinophils # 0.4 10^3/uL (0.0-0.8); Eosinophils % 4.8 %; Hematocrit 33.1 % (36-47); Lymphocytes # 2.9 10^3/uL (0.8-4.8); Lymphocytes % 33.5 %; Mean Corpuscular Hemoglobin 29.4 pg (27-33); Mean Corpuscular Volume 91.9 fl (85-98); Mean Platelet Volume 9.2 fL (7.4-10.4); Monocytes # 0.6 10^3/uL (0.2-0.9); Monocytes % 6.7 %; Neutrophils # 4.65 10^3/uL (1.8-7.7); Neutrophils % 54.1 %; Nucleated Red Blood Cells % 0 %; Platelet Count 353 10^3/cmm (157-399); Red Cell Distribution Width 13.9 % (12.1-15.1)
--- NOTE | 2023-12-20 13:57 | ED_ITS ---
HPI - Chest Pain 2 General: Chief Complaint: Chest Pain Stated Complaint: Chest pain Time Seen by Provider: 12/20/23 13:10 History of Present Illness: 63-year-old female with history of coron marty artery disease, chronic kidney disease, type 2 diabetes mellitus, obesity, congestive heart failure, anxiety, constipation, migraine headaches, and multiple recent admissions to the hospital with PCI and stents who presents to the emergency room today by ambulance with chest pain. This is similar to her previous events. She describes the left chest pressure and tightness that radiates into her left arm. No nausea or vomiting. No altered mental status. No focal motor deficits. No diaphoresis. No abdominal pain. No more shortness of breath than usual. Review of Systems 2 Narrative: Constitutional symptoms: Negative except as documented in HPI. Skin symptoms: Negative except as documented in HPI. Eye symptoms: Negative except as documented in HPI. ENMT symptoms: Negative except as documented in HPI. Respiratory symptoms: Negative except as documented in HPI. Cardiovascular symptoms: Negative except as documented in HPI. Gastrointestinal symptoms: Negative except as documented in HPI. Genitourinary symptoms: Negative except as documented in HPI. Musculoskeletal symptoms: Negative except as documented in HPI. Neurologic symptoms: Negative except as documented in HPI. Psychiatric symptoms: Negative except as documented in HPI. Endocrine symptoms: Negative except as documented in HPI. PFSH ED 2 PFSH: Medical History (Updated 12/20/23 @ 17:32 by Juana Ackerman MD) Groin hematoma Left ACL tear Fracture of fifth toe, left, closed Derangement of lateral meniscus of right knee Derangement of medial meniscus of right knee Chronic kidney disease (CKD) Lumbar stenosis with neurogenic claudication Inability to walk Renal failure Chronic cystitis with hematuria Inability to urinate CAD (coronary artery disease) Atherosclerotic heart disease of [place] coronary artery with other forms of angina pectoris Non-ST elevation TN (NSTEMI) Lower extremity weakness Acute kidney injury Elevated troponin CHF (congestive heart failure) Depression with anxiety Coronary artery disease due to type 2 diabetes mellitus Morbid obesity Generalized muscle weakness Type 2 diabetes mellitus with diabetic polyneuropathy Chest pain Diabetes mellitus Small bowel strangulation Dyslipidemia Chronic cystitis Gross hematuria Osteoporosis Morbid obesity Constipation Migraine headache Bilateral lower extremity edema RLS (restless legs syndrome) GERD (gastroesophageal reflux disease) BETH (obstructive sleep apnea) CVA (cerebral vascular accident) HTN (hypertension) DM type 2 (diabetes mellitus, type 2) Pulmonary embolism, bilateral Opioid contract exists Long-term use of high-risk medication Chronic low back pain Surgical History (Updated 12/20/23 @ 17:11 by Clovis Szymanski MD) Status post lumbar laminectomy H/O heart artery stent S/P hysterectomy S/P tonsillectomy and adenoidectomy S/P appendectomy S/P cholecystectomy Hx of total knee replacement History of partial surgical removal of colon Family History Grandfather Cancer Family/Other Myocardial infarct MOTHER, FATHER, BROTHER, SISTER Hypertension Diabetes Mother , at age 66 CAD (coronary artery disease) Father , at age 74 CAD (coronary artery disease) Sister CAD (coronary artery disease) Brother CAD (coronary artery disease) Other Stroke Denies family history of Anesthesia complication Bleeding disorder Social History Smoking and tobacco/nicotine status: never used tobacco/nicotine Alcohol intake: never Substance/Drug Use: current Substance/Drug use frequency: other Other substance/drug use details: smokes medical marijauna occasionally at night to help her sleep Lives independently: Yes Marital status: Current occupational status: disabled Current gender identity: Female Special vik needs: No Physical Exam 2 Narrative: EXAM NARRATIVE: General: Alert, no acute distress. Skin: Warm, dry. Head: Normocephalic, atraumatic. Neck: Supple, trachea midline. Eye: Extraocular movements are intact. Ears, nose, mouth and throat: mucosa moist. Cardiovascular: Regular, Normal peripheral perfusion. Respiratory: Lungs are clear to auscultation, respirations are non-labored, breath sounds are equal, Symmetrical chest wall expansion. Gastrointestinal: Soft, Nontender, Non distended, Normal bowel sounds. Musculoskeletal: Normal ROM, no deformity. Neurological: Alert and oriented, No focal neurological deficit observed. Psychiatric: Cooperative, appropriate mood & affect. Course 2 Vital Signs: Vital signs: Vital Signs Pulse Rate 81 12/20/23 17:10 Respiratory Rate 15 12/20/23 16:30 Blood Pressure 137/71 12/20/23 17:10 Pulse Oximetry 98 12/20/23 17:10 MDM - Chest Pain Medical Decision Making Differential diagnosis for patient with chest pain includes but is not limited to and based on the above HPI, review of systems and physical exam: Pneumonia. unstable angina. angina. Acute coronary syndrome / TN. Pulmonary embolism. Costochondritis / musculoskeletal. Pleurisy. Pericarditis. Esophageal spasm. Pancreatis. Cholecystitis. Workup: Lab work, chest X-ray and EKG ordered to evaluate, rule in and rule out above pathologies. EKG: Time 1316. Rate 93. Normal sinus rhythm, nonspecific ST abnormalities, no ST elevation, no ectopy, normal OH & QRS intervals, This was reviewed and interpreted by myself the ER physician at 1316. No change from previous EKG Chest x-ray: No acute process. No infiltrate. No pneumothorax. No cardiomegaly. This was reviewed and interpreted by myself the ER physician. Repeat EKG: Time 1529. Rate 80. Normal sinus rhythm, stable nonspecific ST changes., no ectopy, normal OH & QRS intervals, This was reviewed and interpreted by myself the ER physician at 1535. No changes from previous EKG Lab Review: Laboratory results were reviewed and interpreted by myself the emergency room physician. No leukocytosis. White count is 8.6. Hemoglobin is stable at 10.6. BUN and creatinine are stable at 37 and 1.4. Her glucose is little bit high at 243. Initial troponin is 109. Repeat troponin is 107. Consultation: I spoke with the hospitalist on-call Dr. Szymanski who is on-call for the hospitalist service. He agrees to observation and request consultation with cardiology. Consultation: I spoke with Dr. Rodriguez who is on-call with the cardiology service and he will see the patient once in the hospital. No further changes recommended at this time. I reviewed the patient's medical record. Reviewed discharge summary and cardiology notes from her last day. Reexamination: Patient is in no distress on repeat exam. She is having no further chest pain. She has no increased work of breathing. No altered mental status. No focal motor deficits. Assessment and plan: Chest pain Coronary artery disease -I discussed the patient with the hospitalist on-call who is admitting the patient. - Discussed findings and plan with patient. Answered any questions. - All laboratory values were reviewed and interpreted personally by myself, the ER physician - All imaging was reviewed and interpreted personally by myself, the ER physician. - Evaluation and treatment of this problem were appropriate in the emergency setting Lab Data 12/20/23 13:42 12/20/23 13:42 Radiology Impressions Chest X-Ray 12/20/23 13:14 IMPRESSION: No acute findings. Laboratory Results WBC 8.60 10^3/uL (3.29-11.43) 12/20/23 13:42 RBC 3.60 10^6/uL (3.85-5.65) L 12/20/23 13:42 Hgb 10.60 g/dL (11.27-16.99) L 12/20/23 13:42 Hct 33.1 % (36-47) L 12/20/23 13:42 MCV 91.9 fl (85-98) 12/20/23 13:42 MCH 29.4 pg (27-33) 12/20/23 13:42 MCHC 32.0 g/dL (30-55) 12/20/23 13:42 RDW 13.9 % (12.1-15.1) 12/20/23 13:42 Plt Count 353 10^3/cmm (157-399) 12/20/23 13:42 MPV 9.2 fL (7.4-10.4) 12/20/23 13:42 Neut % (Auto) 54.1 % 12/20/23 13:42 Lymph % (Auto) 33.5 % 12/20/23 13:42 Isabella % (Auto) 6.7 % 12/20/23 13:42 Eos % (Auto) 4.8 % 12/20/23 13:42 Baso % (Auto) 0.6 % 12/20/23 13:42 Neut # (Auto) 4.65 10^3/uL (1.8-7.7) 12/20/23 13:42 Lymph # (Auto) 2.9 10^3/uL (0.8-4.8) 12/20/23 13:42 Isabella # (Auto) 0.6 10^3/uL (0.2-0.9) 12/20/23 13:42 Eos # (Auto) 0.4 10^3/uL (0.0-0.8) 12/20/23 13:42 Baso # (Auto) 0.1 10^3/uL (0.0-0.1) 12/20/23 13:42 Nucleated RBC % (auto) 0 % 12/20/23 13:42 Nucleated RBCs # 0.0 /100WBC 12/20/23 13:42 Sodium 133 mmol/L (136-145) L 12/20/23 13:42 Potassium 5.5 mmol/L (3.5-5.1) H 12/20/23 13:42 Chloride 95 mmol/L (98-107) L 12/20/23 13:42 Carbon Dioxide 26 mmol/L (22-29) 12/20/23 13:42 Anion Gap 17.5 (5-19) 12/20/23 13:42 BUN 37 mg/dL (8-23) H 12/20/23 13:42 Creatinine 1.4 mg/dL (0.5-0.9) H 12/20/23 13:42 GFR Calculation 38.2 mL/min (90-130) L 12/20/23 13:42 Glucose 243 mg/dL (65-115) H 12/20/23 13:42 Calculated Osmolality 293 mOsm/kg (285-295) 12/20/23 13:42 Calcium 9.4 mg/dL (8.5-10.5) 12/20/23 13:42 Total Bilirubin 0.4 mg/dL (0.15-1.2) 12/20/23 13:42 AST 9 U/L (0-32) 12/20/23 13:42 ALT 9 U/L (0-33) 12/20/23 13:42 Alkaline Phosphatase 113 U/L (35-105) H 12/20/23 13:42 Troponin T Baseline 109 ng/L (0-10) H* 12/20/23 13:42 Troponin T 120 Minute 106.7 ng/L (0-10) H 12/20/23 15:40 Delta Troponin T -2.3 ABS# (0-10) L 12/20/23 15:40 Total Protein 6.7 g/dL (6.6-8.7) 12/20/23 13:42 Albumin 3.5 g/dL (3.5-5.2) 12/20/23 13:42 Globulin 3.2 g/dL (1.3-4.6) 12/20/23 13:42 All radiology interpretation(s) finalized by discharge Discharge Plan Discharge Patient Disposition: Placed in Observation Admit Provider: Clovis Szymanski Clinical Impression: Chest pain Qualifiers: Chest pain type: unspecified Qualified Code(s): R07.9 - Chest pain, unspecified CAD (coronary artery disease) Qualifiers: Coronary Disease-Associated Artery/Lesion type: [place] artery [place] vs. transplanted heart: [place] heart Associated angina: angina presence unspecified Qualified Code(s): I25.10 - Atherosclerotic heart disease of [place] coronary artery without angina pectoris Coding Level of Care Code ED Behavioral Health Care Coordinator for Romie Everett
[2023-12-20 14:07] LABS: Alanine Aminotransferase 9 U/L (0-33); Albumin Level 3.5 g/dL (3.5-5.2); Alkaline Phosphatase 113 U/L (35-105); Anion Gap 17.5 (5-19); Aspartate Amino Transferase 9 U/L (0-32); Blood Urea Nitrogen 37 mg/dL (8-23); Calcium 9.4 mg/dL (8.5-10.5); Carbon Dioxide 26 mmol/L (22-29); Chloride 95 mmol/L (98-107); Creatinine Clr Calc Pharmacy 47.1729; Globulin 3.2 g/dL (1.3-4.6); Glomerular Filtration Rate 38.2 mL/min (90-130); Glucose 243 mg/dL (65-115); Osmolality Calculated 293 mOsm/kg (285-295); Potassium 5.5 mmol/L (3.5-5.1); Sodium 133 mmol/L (136-145); Total Bilirubin 0.4 mg/dL (0.15-1.2); Total Protein 6.7 g/dL (6.6-8.7)
[2023-12-20 14:27] LABS: Troponin(5th) Baseline 109 ng/L (0-10)
--- NOTE | 2023-12-20 15:29 | ECG_ITS ---
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 Measurements Intervals [place] Rate: 80 P: 39 MA: 154 QRS: 16 QRSD: 91 T: 58 QT: 375 QTc: 435 Interpretive Statements SINUS RHYTHM POSSIBLE INFERIOR MYOCARDIAL INFARCTION , PROBABLY OLD [30 ms Q WAVE IN II/aVF] Compared to ECG 12/20/2023 13:16:27 No significant changes Electronically Signed On 12-20-2023 17:07:42 CDT by Jaiden Newell M.D. [id number]
[2023-12-20 16:17] LABS: Troponin 5 2HR 106.7 ng/L (0-10); Troponin 5 2HR Delta -2.3 ABS# (0-10)
--- NOTE | 2023-12-20 16:51 | P.HP_ITS ---
Providers/Chief Complaint 2 Primary Care Provider: Niko Jerez MD Chief Complaint: Chest pain History of Present Illness Watson Bridges is a 63 year old female with past medical history of type 2 diabetes mellitus, hypothyroidism, CAD with multiple PCI in the past and who recently underwent PCI to LCx for posterior wall HI presents to the ER from long-term because of retrosternal chest pain radiating to left shoulder along with nausea and radiating to neck since today morning. Patient has been having chest pain on and off for last 2 to 3 days but got worse today. Has been having difficulty in breathing on room air specially during mild exertion since last discharge and has not worsened. States has been compliant with medications. Review of Systems 2 General: Reports: 10 or more systems reviewed and unremarkable except in HPI and below Const: Denies: fever(s), chills, body aches, change in appetite, change in weight, malaise, night sweats, diaphoresis, change in sleep pattern, daytime sleepiness or snoring Eyes: Denies: change in vision, blurry vision, photophobia, eye discomfort or eye discharge ENMT: Denies: throat pain, enlarged tonsils, hoarseness, mouth pain, oral sores, dry mouth, tinnitus, nasal congestion or post nasal drip Card: Denies: chest pain, palpitations, irregular heart rhythm, edema, swelling of feet/ankles, lightheadedness, syncope, pre-syncope, dyspnea on exertion, orthopnea, leg pain with exertion or acrocyanosis Resp: Denies: dyspnea, productive cough, non-productive cough, wheezing, stridor, pain on inspiration, change in phlegm color, hemoptysis or chest congestion GI: Denies: abdominal pain, nausea, vomiting, hematemesis, coffee ground emesis, dysphagia, heartburn, diarrhea, constipation, bloating, GI cramping, change in bowel habits, pain on defecation, hematochezia or melena : Denies: flank pain, dysuria, urinary frequency, urinary urgency, urinary hesitancy, nocturia or hematuria Musc: Denies: neck pain, back pain, extremity pain, joint pain, joint swelling, joint redness, joint stiffness or limited range of motion Neuro: Denies: headache(s), numbness in extremities, weakness in extremities, sensory changes, lack of coordination, difficulty walking, frequent falls, dizziness, vertigo, confusion, Slurred speech present, difficulty communicating thoughts or seizure-like activity Psych: Denies: anxiety, depression, mood swings, panic attacks, hopelessness or irritability Endo: Denies: polyuria, polydipsia, tired all the time, cold intolerance, excessive sweating, flushing or heat intolerance Soham/Lymph: Denies: easy bruising or easy bleeding All/Imm: Denies: tongue swelling, facial swelling or acute wheezing Medications/Allergies Home Medications Medication Instructions Recorded Confirmed Last Taken Type walker with seat and brakes #1 ea 03/26/20 12/20/23 08/08/20 22:30 Rx insulin admin supplies (InPen (for #150 ea 10/04/21 12/20/23 Unknown Rx Humalog) subcutaneous) diabetic shoes and inserts #1 ea 05/11/22 12/20/23 Unknown Rx insulin syringe-needle U-100 2 #100 ea 09/23/22 12/20/23 Unknown Rx mL 31 gauge x 15/64 (BD Veo Insulin Syringe Ultra-Fine) lancets 33 gauge (BD Ultra Fine #100 ea 09/23/22 12/20/23 Unknown Rx Lancets) blood sugar diagnostic (Accu-Chek #100 ea 12/09/22 12/20/23 Unknown Rx Guide test strips) tamsulosin 0.4 mg capsule 0.4 mg PO BEDTIME@01/06/23 12/20/23 12/19/23 History calcium carbonate (Tums) 1,000 mg PO DAILY PRN Stomach Upset 01/18/23 12/20/23 09/14/23 History cholecalciferol (vitamin D3) 1,250 50,000 unit PO Q7D 01/18/23 12/20/23 12/15/23 History mcg (50,000 unit) capsule metformin 1,000 mg tablet 1,000 mg PO DAILY 01/18/23 12/20/23 12/20/23 History nitroglycerin 0.4 mg sublingual 0.4 mg sublingual Q5M PRN Chest 01/18/23 12/20/23 Unknown History tablet (Nitrostat) Pain potassium chloride 10 mEq 10 meq PO DAILY@07 01/18/23 12/20/23 12/20/23 History tablet,extended release ASO to RIGHT #1 ea 01/20/23 12/20/23 Unknown Rx wheel-chair with foot rest #1 ea 01/20/23 12/20/23 Unknown Rx oxygen tubing #1 ea 01/24/23 12/20/23 Unknown Rx ropinirole 0.5 mg tablet 0.5 mg PO BEDTIME@22 #30 tabs 01/24/23 12/20/23 12/19/23 Rx Incontinence Supplies #1 ea 01/27/23 12/20/23 Unknown Rx levothyroxine 25 mcg capsule 25 mcg PO QAM 05/08/23 12/20/23 12/20/23 History sertraline 25 mg tablet (Zoloft) 25 mg PO BEDTIME 05/08/23 12/20/23 12/19/23 History hydrocodone 10 mg-acetaminophen 1 tab PO Q6H PRN Pain, Moderate 09/07/23 12/20/23 Unknown History 325 mg tablet insulin glargine 100 unit/mL (3 32 unit SUBCUT QAM 09/07/23 12/20/23 12/20/23 History mL) subcutaneous pen (Lantus Solostar U-100 Insulin) ondansetron HCl 4 mg tablet 4 mg PO BID PRN Nausea 09/07/23 12/20/23 09/14/23 History pantoprazole 40 mg tablet,delayed 40 mg PO QAM 09/07/23 12/20/23 12/20/23 History release semaglutide 0.25 mg or 0.5 mg (2 0.5 mg SUBCUT Q7D 09/07/23 12/20/23 09/08/23 History mg/3 mL) subcutaneous pen injector (Ozempic) trazodone 50 mg tablet 50 mg PO BEDTIME 09/07/23 12/20/23 12/19/23 History bupropion HCl 200 mg tablet,12 hr 200 mg PO BID 09/14/23 12/20/23 12/20/23 History sustained-release insulin lispro 100 unit/mL 29 sliding scale dose SUBCUT TID 09/14/23 12/20/23 12/20/23 History subcutaneous pen (Humalog KwikPen (U-100) Insulin) acetaminophen 650 mg 1,300 mg PO Q8H PRN Pain 11/14/23 12/20/23 Unknown History tablet,extended release magnesium hydroxide 400 mg/5 mL 30 ml PO DAILY PRN Constipation 11/14/23 12/20/23 Unknown History oral suspension (Milk of Magnesia) aspirin 81 mg tablet,delayed 81 mg PO DAILY@07 #60 tabs 11/23/23 12/20/23 12/20/23 Rx release atorvastatin 40 mg tablet 40 mg PO DAILY@07 #30 tabs 11/23/23 12/20/23 12/20/23 Rx isosorbide mononitrate 30 mg 30 mg PO DAILY #30 tabs 11/23/23 12/20/23 12/20/23 Rx tablet,extended release 24 hr ticagrelor 90 mg tablet (Brilinta) 90 mg PO BID@, #120 tabs 11/23/23 12/20/23 12/20/23 Rx furosemide 20 mg tablet 20 mg PO DAILY #30 tabs 11/29/23 12/20/23 12/20/23 Rx metoprolol succinate 50 mg 75 mg PO QAM 12/20/23 12/20/23 12/20/23 History tablet,extended release 24 hr triamterene 37.5 1 tab PO .@NOON 12/20/23 12/20/23 12/20/23 History mg-hydrochlorothiazide 25 mg tablet Allergies Allergy/AdvReac Type Severity Reaction Status Date / Time hyoscyamine Allergy Severe ADR-Itching Verified 12/14/23 11:22 ciprofloxacin [From Cipro] Allergy hives Verified 12/14/23 11:22 citalopram Allergy effects Verified 12/14/23 11:22 speach and memory clopidogrel [From Plavix] Allergy unk Verified 12/14/23 11:22 coconut Allergy Unknown Verified 12/14/23 11:22 ibuprofen Allergy RASH/ Verified 12/14/23 11:22 SWELLING morphine Allergy ITCHING Verified 12/14/23 11:22 famotidine AdvReac Mild itching Verified 12/14/23 11:22 esomeprazole [From Nexium] AdvReac Unknown Verified 12/14/23 11:22 cefdinir Allergy unknown Uncoded 12/14/23 11:22 PFSH Acute 2 PFSH: Medical History (Updated 12/20/23 @ 21:26 by Denisse Rodriguez MD) Groin hematoma Left ACL tear Fracture of fifth toe, left, closed Derangement of lateral meniscus of right knee Derangement of medial meniscus of right knee Chronic kidney disease (CKD) Lumbar stenosis with neurogenic claudication Inability to walk Renal failure Chronic cystitis with hematuria Inability to urinate CAD (coronary artery disease) Atherosclerotic heart disease of [place] coronary artery with other forms of angina pectoris Non-ST elevation HI (NSTEMI) Lower extremity weakness Acute kidney injury Elevated troponin CHF (congestive heart failure) Depression with anxiety Coronary artery disease due to type 2 diabetes mellitus Morbid obesity Generalized muscle weakness Type 2 diabetes mellitus with diabetic polyneuropathy Chest pain Diabetes mellitus Small bowel strangulation Dyslipidemia Chronic cystitis Gross hematuria Osteoporosis Morbid obesity Constipation Migraine headache Bilateral lower extremity edema RLS (restless legs syndrome) GERD (gastroesophageal reflux disease) BETH (obstructive sleep apnea) CVA (cerebral vascular accident) HTN (hypertension) DM type 2 (diabetes mellitus, type 2) Pulmonary embolism, bilateral Opioid contract exists Long-term use of high-risk medication Chronic low back pain Surgical History (Updated 12/20/23 @ 17:11 by Clovis Szymanski MD) Status post lumbar laminectomy H/O heart artery stent S/P hysterectomy S/P tonsillectomy and adenoidectomy S/P appendectomy S/P cholecystectomy Hx of total knee replacement History of partial surgical removal of colon Family History Grandfather Cancer Family/Other Myocardial infarct MOTHER, FATHER, BROTHER, SISTER Hypertension Diabetes Mother , at age 66 CAD (coronary artery disease) Father , at age 74 CAD (coronary artery disease) Sister CAD (coronary artery disease) Brother CAD (coronary artery disease) Other Stroke Denies family history of Anesthesia complication Bleeding disorder Social History Smoking and tobacco/nicotine status: never used tobacco/nicotine Alcohol intake: never Substance/Drug Use: current Substance/Drug use frequency: other Other substance/drug use details: smokes medical marijauna occasionally at night to help her sleep Lives independently: Yes Marital status: Current occupational status: disabled Current gender identity: Female Special vik needs: No Vitals/I&O/Wt Last Vital Signs Pulse 82 12/20/23 15:00 Resp 16 12/20/23 13:28 BP 147/78 12/20/23 15:00 Pulse Ox 94 12/20/23 15:00 Weight last 48 hrs Weight 98.43 kg Physical Exam 2 Narrative: General: No acute distress, AO x3, anxious, lying comfortably in bed HEENT: PERRLA, pupils bilaterally equal and reactive Chest: Normal vesicular breath sounds, no added sounds, equal good air entry bilaterally CVS: S1-S2 regular, no murmurs, no tachycardia, no gallops, no rubs Abdomen: Soft, nontender, no organomegaly, bowel sounds present Neuro: No focal deficits, no facial deformity, AO x3, power 5/5 in all limbs Data 12/20/23 13:42 12/20/23 13:42 A&P Assessment and plan (1) Chest pain: Features consistent with unstable angina. Patient recently had PCI to LCx for posterior wall HI. Will consult cardiology for further recommendations. Cycle troponin. If getting elevated will plan for full dose Lovenox. Currently patient is chest pain-free. Continue with home dose of Brilinta, aspirin, statin, beta-marjorie. Nitropaste as needed for chest pain. Continue with home dose of Imdur. Will discuss with cardiology regarding limited echocardiogram to rule out regional wall motion normality. Qualifiers: Chest pain type: unspecified Qualified Code(s): R07.9 - Chest pain, unspecified (2) Status post coronary artery stent placement: (3) CAD (coronary artery disease): Qualifiers: Associated angina: angina presence unspecified Coronary Disease- Associated Artery/Lesion type: [place] artery [place] vs. transplanted heart: n ative heart Qualified Code(s): I25.10 - Atherosclerotic heart disease of [place] coronary artery without angina pectoris (4) DM type 2 (diabetes mellitus, type 2): Recent A1c more than 10. Insulin sliding scale. Continue with home dose of Lantus. Will uptitrate the insulin as per requirements for the next 24 hours. Carb consistent diet. Qualifiers: Diabetes mellitus complication status: without complication Diabetes mellitus detention insulin use: without detention use Qualified Code(s): E11.9 - Type 2 diabetes mellitus without complications (5) Chronic kidney disease (CKD): Baseline creatinine around 1.1-1.3. Currently 1.4. Medical reconciliation done for nephrotoxic drugs. Start on gentle IV hydration with normal saline at 50 cc/h. Monitor renal functions daily. Monitor electrolytes. Qualifiers: Chronic kidney disease stage: stage 3 (moderate) Chronic kidney disease stage 3 subtype: stage 3a (GFR 45-59) Qualified Code(s): N18.31 - Chronic kidney disease, stage 3a (6) Hyperkalemia: Mild hypokalemia. Potassium of 5.2. Asymptomatic. Will treat with D10 and 10 units of insulin, calcium gluconate. Repeat BMP in AM. Plan Groin hematoma: Did have hematoma post angiogram recently as well. Will benefit lower limb Doppler to rule out pseudoaneurysm. Continue other chronic medications. Carb consistent cardiac diet Full code Full dose Lovenox if troponin cycled elevated otherwise heparin 5000 every 12 hourly. Protonix for PUD prophylaxis Attestations 2 Medical Necessity Statement*: Admission under observation for further evaluation and management of chest pain with high concerns for unstable angina in a patient who recently underwent PCI to LCx for posterior wall HI, uncontrolled type 2 diabetes mellitus Diagnoses Chest pain, unspecified type R07.9 Chest pain type: unspecified Status post coronary artery stent placement Z95.5 Coronary artery disease involving [place] coronary artery of [place] heart, angina presence unspecified I25.10 Associated angina: angina presence unspecified Coronary Disease-Associated Artery/Lesion type: [place] artery [place] vs. 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
[2023-12-20 18:23] LABS: Iron 45 ug/dL (37-145); Percent Saturation 19.9 % (20-50); Total Iron Binding Capacity 226 mcg/dl; Unsaturated Iron Binding 181 ug/dL (112-347)
[2023-12-20] MEDS: heparin 5,000 unit/mL INJ 1 mL 5000 UNIT SUBCUT (18:29)
[2023-12-20] MEDS: buPROPion SR (12 HR) 100 mg Tablet 200 MG PO (18:30)
[2023-12-20] MEDS: insulin regular-human 10 UNIT in SYRINGE 1 EACH 99 UNIT IVP (18:30)
[2023-12-20] MEDS: calcium gluconate 0.9% NaCL 1 GM/50 ML PREMIX IV (18:32)
[2023-12-20] MEDS: morphine 4 mg/mL SDV 1 mL 2 MG IVP (18:50)
--- NOTE | 2023-12-20 19:14 | ECG_ITS ---
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 Measurements Intervals [place] Rate: 88 P: 52 LA: 167 QRS: 32 QRSD: 93 T: 68 QT: 362 QTc: 438 Interpretive Statements SINUS RHYTHM Compared to ECG 12/20/2023 15:29:30 Myocardial infarct finding no longer present Electronically Signed On 12-21-2023 0:04:48 CDT by Jaiden Newell M.D. [email or web address]
--- NOTE | 2023-12-20 20:34 | P.CONIM_ITS ---
Providers/Reason For Consult 2 Consulting Physician/Specialty*: RADHA Rodriguez MD/cardiology Reason for Consult*: Patient with chest pain and recent myocardial infarction followed by PCI Requesting Physician: Dr. Rey Attending Physician: Clovis Szymanski MD Primary Care Provider: Niko Jerez MD History of Present Illness History of Present Illness Watson Bridges is a 63 year old female This is a 63-year-old white female with history of atherosclerotic heart disease, status post multiple PCI's, was recently discharged from this hospital where she was admitted on the with features of a posterior wall MN. Cardiac cath revealed in-stent stenosis in the mid circumflex artery. She underwent a PCI of this lesion by Dr. Newell. She is now presenting with increasing episodes of chest pain for the last 2 days. She describes the pain as a pressure-like pain on the left side of the chest, radiated to her left shoulder and to the left side of the neck, associated with shortness of breath and nausea. She had a several episodes of mild to moderate intensity pain yesterday. Today she had a more severe episodes of pain with intensity going up to 9/10. She took a total of 2 sublingual nitro. She gets some relief of the symptoms for a short period but reccurs within a few minutes. Because of the increasing episodes of pain with worsening intensity, she was brought back to the hospital emergency room by the EMS. She is also complaining of pain and swelling of the left groin. She has no fever or chills. No cough. She has a history of atherosclerotic heart disease and had multiple PCI's in the past. Most recently she had the coronary angiogram in on 19 November. She was found to have a high-grade lesion in the mid circumflex artery for which she underwent PCI with stent placement. Following the procedure, she developed a large hematoma in the left groin requiring blood transfusion. On November, she had PCI of the mid circumflex, distal circumflex and mid RCA. Patient is known to have multiple other medical problems. History of hypertension, diabetes and dyslipidemia for the last more than 25 years. History of chronic kidney disease, pulmonary embolism, CVA, type 2 diabetes, sleep apnea and morbid obesity. Patient is poor historian. Family history significant for her father had congestive heart failure. Mother of myocardial infarction in her 60s. 2 of her sisters and one of her brothers had myocardial events in their 60s. No other known family history. She has no children and her multiple miscarriages. She has no history of smoking abuse. History of alcohol abuse as a teenager. No other substance abuse. She has difficulty in ambulation. She has a history of frequent fall and has been ambulating around on a wheelchair. She put herself in a retirement a year ago. She had some back surgeries recently and had an uneventful postprocedure course. Review of Systems 2 Narrative: CONSTITUTIONAL: No fever or chills. EYES: No blurring of vision or other visual disturbances lately. ENT: No hoarseness of voice, auditory disturbances or sore throat. CARDIOVASCULAR: As mentioned above. RESPIRATORY: Has some baseline shortness of breath with activities. GASTROINTESTINAL: No hematemesis or melena. GENITOURINARY: No dysuria or hematuria. INTEGUMENTARY: No skin rashes or history of skin cancer. NEURO: No transient ischemic attacks or amaurosis. PSYCHIATRIC: No history of psychosis or major depression. HEMATOLOGIC: No bleeding disorders or significant anemia. ENDOCRINE: No history of polyuria or polydipsia. MUSCULOSKELETAL: She has aches and pains in the legs and also in the lower back ALLERGY/IMMUNOLOGY: As mentioned above. Medications/Allergies Home Medications Medication Instructions Recorded Confirmed Last Taken Type walker with seat and brakes #1 ea 03/26/20 12/20/23 08/08/20 22:30 Rx insulin admin supplies (InPen (for #150 ea 10/04/21 12/20/23 Unknown Rx Humalog) subcutaneous) diabetic shoes and inserts #1 ea 05/11/22 12/20/23 Unknown Rx insulin syringe-needle U-100 /2 #100 ea 09/23/22 12/20/23 Unknown Rx mL 31 gauge x 15/64 (BD Veo Insulin Syringe Ultra-Fine) lancets 33 gauge (BD Ultra Fine #100 ea 09/23/22 12/20/23 Unknown Rx Lancets) blood sugar diagnostic (Accu-Chek #100 ea 12/09/22 12/20/23 Unknown Rx Guide test strips) tamsulosin 0.4 mg capsule 0.4 mg PO BEDTIME@01/06/23 12/20/23 12/19/23 History calcium carbonate (Tums) 1,000 mg PO DAILY PRN Stomach Upset 01/18/23 12/20/23 09/14/23 History cholecalciferol (vitamin D3) 1,250 50,000 unit PO Q7D 01/18/23 12/20/23 12/15/23 History mcg (50,000 unit) capsule nitroglycerin 0.4 mg sublingual 0.4 mg sublingual Q5M PRN Chest 01/18/23 12/20/23 Unknown History tablet (Nitrostat) Pain potassium chloride 10 mEq 10 meq PO DAILY@07 01/18/23 12/20/23 12/20/23 History tablet,extended release ASO to RIGHT #1 ea 01/20/23 12/20/23 Unknown Rx wheel-chair with foot rest #1 ea 01/20/23 12/20/23 Unknown Rx oxygen tubing #1 ea 01/24/23 12/20/23 Unknown Rx ropinirole 0.5 mg tablet 0.5 mg PO BEDTIME@22 #30 tabs 01/24/23 12/20/23 12/19/23 Rx Incontinence Supplies #1 ea 01/27/23 12/20/23 Unknown Rx levothyroxine 25 mcg capsule 25 mcg PO QAM 05/08/23 12/20/23 12/20/23 History sertraline 25 mg tablet (Zoloft) 25 mg PO BEDTIME 05/08/23 12/20/23 12/19/23 History hydrocodone 10 mg-acetaminophen 1 tab PO Q6H PRN Pain, Moderate 09/07/23 12/20/23 Unknown History 325 mg tablet insulin glargine 100 unit/mL (3 32 unit SUBCUT QAM 09/07/23 12/20/23 12/20/23 History mL) subcutaneous pen (Lantus Solostar U-100 Insulin) ondansetron HCl 4 mg tablet 4 mg PO BID PRN Nausea 09/07/23 12/20/23 09/14/23 History pantoprazole 40 mg tablet,delayed 40 mg PO QAM 09/07/23 12/20/23 12/20/23 History release semaglutide 0.25 mg or 0.5 mg (2 0.5 mg SUBCUT Q7D 09/07/23 12/20/23 09/08/23 History mg/3 mL) subcutaneous pen injector (Ozempic) trazodone 50 mg tablet 50 mg PO BEDTIME 09/07/23 12/20/23 12/19/23 History bupropion HCl 200 mg tablet,12 hr 200 mg PO BID 09/14/23 12/20/23 12/20/23 History sustained-release insulin lispro 100 unit/mL 29 sliding scale dose SUBCUT TID 09/14/23 12/20/23 12/20/23 History subcutaneous pen (Humalog KwikPen (U-100) Insulin) acetaminophen 650 mg 1,300 mg PO Q8H PRN Pain 11/14/23 12/20/23 Unknown History tablet,extended release magnesium hydroxide 400 mg/5 mL 30 ml PO DAILY PRN Constipation 11/14/23 12/20/23 Unknown History oral suspension (Milk of Magnesia) aspirin 81 mg tablet,delayed 81 mg PO DAILY@07 #60 tabs 11/23/23 12/20/23 12/20/23 Rx release atorvastatin 40 mg tablet 40 mg PO DAILY@07 #30 tabs 11/23/23 12/20/23 12/20/23 Rx ticagrelor 90 mg tablet (Brilinta) 90 mg PO BID@,22 #120 tabs 11/23/23 12/20/23 12/20/23 Rx furosemide 20 mg tablet 20 mg PO DAILY #30 tabs 11/29/23 12/20/23 12/20/23 Rx metoprolol succinate 50 mg 75 mg PO QAM 12/20/23 12/20/23 12/20/23 History tablet,extended release 24 hr isosorbide mononitrate 30 mg 60 mg (2 x 30 mg) PO DAILY #30 tabs 12/22/23 12/20/23 12/20/23 Rx tablet,extended release 24 hr ranolazine 500 mg tablet,extended 500 mg PO BID #60 tabs 12/22/23 Unknown Rx release,12 hr Allergies Allergy/AdvReac Type Severity Reaction Status Date / Time hyoscyamine Allergy Severe ADR-Itching Verified 12/14/23 11:22 ciprofloxacin [From Cipro] Allergy hives Verified 12/14/23 11:22 citalopram Allergy effects Verified 12/14/23 11:22 speach and memory clopidogrel [From Plavix] Allergy unk Verified 12/14/23 11:22 coconut Allergy Unknown Verified 12/14/23 11:22 ibuprofen Allergy RASH/ Verified 12/14/23 11:22 SWELLING famotidine AdvReac Mild itching Verified 12/14/23 11:22 esomeprazole [From Nexium] AdvReac Unknown Verified 12/14/23 11:22 cefdinir Allergy unknown Uncoded 12/14/23 11:22 Current Medications Generic Name Dose Route Start Last Admin Trade Name Freq PRN Reason Stop Dose Admin Bupropion HCl 200 mg 12/20/23 18:00 12/20/23 18:30 Bupropion Sr (12 Hr) 100 Mg Tablet PO 200 mg BID SAÚL Administration Heparin Sodium (Porcine) 5,000 unit 12/20/23 17:41 12/20/23 18:29 Heparin 5,000 Unit/Ml Inj 1 Ml SUBCUT 5,000 unit Q12H SAÚL Administration Insulin Human Lispro 0 unit 12/20/23 18:00 12/20/23 19:47 Insulin Lispro 100 Unit/1 Ml SUBCUT Not Given WM&BEDTIME [facility] Protocol Morphine Sulfate 2 mg 12/20/23 17:41 12/20/23 18:50 Morphine 4 Mg/Ml Sdv 1 Ml IVP 2 mg Q4H PRN Administration SEVERE PAIN PFSH Acute 2 PFSH: Medical History (Updated 12/23/23 @ 00:02 by MARCELINO Mccauley) Status post left heart catheterization (LHC) Groin hematoma Left ACL tear Fracture of fifth toe, left, closed Derangement of lateral meniscus of right knee Derangement of medial meniscus of right knee Chronic kidney disease (CKD) Lumbar stenosis with neurogenic claudication Inability to walk Renal failure Chronic cystitis with hematuria Inability to urinate CAD (coronary artery disease) Atherosclerotic heart disease of [place] coronary artery with other forms of angina pectoris Non-ST elevation MN (NSTEMI) Lower extremity weakness Acute kidney injury Elevated troponin CHF (congestive heart failure) Depression with anxiety Coronary artery disease due to type 2 diabetes mellitus Morbid obesity Generalized muscle weakness Type 2 diabetes mellitus with diabetic polyneuropathy Chest pain Diabetes mellitus Small bowel strangulation Dyslipidemia Chronic cystitis Gross hematuria Osteoporosis Morbid obesity Constipation Migraine headache Bilateral lower extremity edema RLS (restless legs syndrome) GERD (gastroesophageal reflux disease) BETH (obstructive sleep apnea) CVA (cerebral vascular accident) HTN (hypertension) DM type 2 (diabetes mellitus, type 2) Pulmonary embolism, bilateral Opioid contract exists Long-term use of high-risk medication Chronic low back pain Surgical History (Updated 12/23/23 @ 00:02 by MARCELINO Mccauley) Status post lumbar laminectomy H/O heart artery stent S/P hysterectomy S/P tonsillectomy and adenoidectomy S/P appendectomy S/P cholecystectomy Hx of total knee replacement History of partial surgical removal of colon Family History Grandfather Cancer Family/Other Myocardial infarct MOTHER, FATHER, BROTHER, SISTER Hypertension Diabetes Mother , at age 66 CAD (coronary artery disease) Father , at age 74 CAD (coronary artery disease) Sister CAD (coronary artery disease) Brother CAD (coronary artery disease) Other Stroke Denies family history of Anesthesia complication Bleeding disorder Social History Smoking and tobacco/nicotine status: never used tobacco/nicotine Alcohol intake: never Substance/Drug Use: current Substance/Drug use frequency: other Other substance/drug use details: smokes medical marijauna occasionally at night to help her sleep Lives independently: Yes Marital status: Current occupational status: disabled Current gender identity: Female Special vik needs: No Vitals/I&O/Wt Last Vital Signs Temp 98.0 F 12/20/23 20:18 Pulse 84 12/20/23 20:18 Resp 19 H 12/20/23 20:18 BP 141/79 12/20/23 20:18 Pulse Ox 94 12/20/23 20:18 O2 Del Method Room Air 12/20/23 19:01 12/20/23 12/20/23 12/20/23 06:59 14:59 22:59 Intake Total 50.1 / 50.1 Balance 50.1 / 50.1 Weight last 48 hrs Weight 217 lb Weight 217 lb Physical Exam 2 Narrative: GENERAL: The patient is alert and oriented times three. Not in any acute distress. HEENT: No significant pallor, icterus or lymphadenopathy.Oral cavity: There are no mucous membrane lesions. NECK: Trachea appears to be central. No masses noted. No JVD or thyromegaly appreciated. RESPIRATORY: Chest is symmetrical. No intercostals muscle retraction or any accessory muscle activation. There is no chest wall tenderness. Breath sounds are heard bilaterally. No rales or rhonchi heard. No evidence of any consolidation. BREASTS: Deferred. HEART: The heart sounds are normal. No S3 or S4. No significant murmurs. No pericardial rub ABDOMEN: No vessel pulsations or distention. No tenderness. No organomegaly appreciated. Bowel sounds are normally heard. : Deferred. RECTAL: Deferred. LYMPHATIC: No lymphadenopathy noted in the neck. EXTREMITIES: Patient has a large swelling in the left groin which is moderately tender. No bruit over the swelling. Has 2+ edema bilaterally MUSCULOSKELETAL: No acute joint deformities or swelling SKIN: There are no significant rashes or ecchymosis NEUROPSYCHIATRIC: The patient is alert and oriented x3. Appears to be in a good mood. No tremors or rigidity noted. Data 12/22/23 04:49 12/22/23 04:49 Other Labs: Laboratory Last Values WBC 8.60 10^3/uL (3.29-11.43) 12/20/23 13:42 RBC 3.60 10^6/uL (3.85-5.65) L 12/20/23 13:42 Hgb 10.60 g/dL (11.27-16.99) L 12/20/23 13:42 Hct 33.1 % (36-47) L 12/20/23 13:42 MCV 91.9 fl (85-98) 12/20/23 13:42 MCH 29.4 pg (27-33) 12/20/23 13:42 MCHC 32.0 g/dL (30-55) 12/20/23 13:42 RDW 13.9 % (12.1-15.1) 12/20/23 13:42 Plt Count 353 10^3/cmm (157-399) 12/20/23 13:42 MPV 9.2 fL (7.4-10.4) 12/20/23 13:42 Neut % (Auto) 54.1 % 12/20/23 13:42 Lymph % (Auto) 33.5 % 12/20/23 13:42 Whiteside % (Auto) 6.7 % 12/20/23 13:42 Eos % (Auto) 4.8 % 12/20/23 13:42 Baso % (Auto) 0.6 % 12/20/23 13:42 Neut # (Auto) 4.65 10^3/uL (1.8-7.7) 12/20/23 13:42 Lymph # (Auto) 2.9 10^3/uL (0.8-4.8) 12/20/23 13:42 Whiteside # (Auto) 0.6 10^3/uL (0.2-0.9) 12/20/23 13:42 Eos # (Auto) 0.4 10^3/uL (0.0-0.8) 12/20/23 13:42 Baso # (Auto) 0.1 10^3/uL (0.0-0.1) 12/20/23 13:42 Nucleated RBC % (auto) 0 % 12/20/23 13:42 Nucleated RBCs # 0.0 /100WBC 12/20/23 13:42 Sodium 133 mmol/L (136-145) L 12/20/23 13:42 Potassium 5.5 mmol/L (3.5-5.1) H 12/20/23 13:42 Chloride 95 mmol/L (98-107) L 12/20/23 13:42 Carbon Dioxide 26 mmol/L (22-29) 12/20/23 13:42 Anion Gap 17.5 (5-19) 12/20/23 13:42 BUN 37 mg/dL (8-23) H 12/20/23 13:42 Creatinine 1.4 mg/dL (0.5-0.9) H 12/20/23 13:42 GFR Calculation 38.2 mL/min (90-130) L 12/20/23 13:42 Glucose 243 mg/dL (65-115) H 12/20/23 13:42 Calculated Osmolality 293 mOsm/kg (285-295) 12/20/23 13:42 Calcium 9.4 mg/dL (8.5-10.5) 12/20/23 13:42 Iron 45 ug/dL (37-145) 12/20/23 15:40 TIBC 226 mcg/dl 12/20/23 15:40 % Saturation 19.9 % (20-50) L 12/20/23 15:40 Unsat Iron Binding 181 ug/dL (112-347) 12/20/23 15:40 Total Bilirubin 0.4 mg/dL (0.15-1.2) 12/20/23 13:42 AST 9 U/L (0-32) 12/20/23 13:42 ALT 9 U/L (0-33) 12/20/23 13:42 Alkaline Phosphatase 113 U/L (35-105) H 12/20/23 13:42 Troponin T Baseline 109 ng/L (0-10) H* 12/20/23 13:42 Troponin T 120 Minute 106.7 ng/L (0-10) H 12/20/23 15:40 Delta Troponin T -2.3 ABS# (0-10) L 12/20/23 15:40 Total Protein 6.7 g/dL (6.6-8.7) 12/20/23 13:42 Albumin 3.5 g/dL (3.5-5.2) 12/20/23 13:42 Globulin 3.2 g/dL (1.3-4.6) 12/20/23 13:42 TSH 6.60 uIU/mL (0.27-4.20) H 12/20/23 15:40 EKG 1: My Interpretation: Normal sinus rhythm with patient has old inferior wall MN. Some nonspecific T wave changes. Other data: Cardiac catheterization on 11/20/2023 * Left Main has no significant disease. * Left Anterior Descending has patent prior stents. * Right Coronary Artery has patent prior stents. * Mid Circumflex : significant 80%, hazy instent restenosis, ERICK: 3 flow. * Coronary angiography shows right dominance. * Mid Circumflex to Mid Circumflex: 80% stenosis treated with a MDT R MILTON [id number] JORDIN, and MDT ARLENE EUPHORA RX [id number] BALLOON. 0% residual stenosis, ERICK: 3 flow. Cardiac catheterization on 11/15/2023 * INDICATION: Unstable angina. * Left Main has no significant disease. * Left Anterior Descending has patent prior stent. No significant stenosis. * Mid Circumflex: obstructive 60-70% in-stent restenosis, ERICK: 2 flow. * Distal Circumflex: 99% instent restenosis, ERICK: 2 flow. * Mid Right Coronary Artery: obstructive 70% in-stent restenosis, ERICK: 3 flow. * Posterior Descending Right: subtotal occlusion, ERICK: 3 flow. * Coronary angiography shows right dominance. A&P Assessment and plan (1) Atherosclerotic heart disease of [place] coronary artery with unstable angina pectoris: Patient seems to have increasing episodes of chest pain. The EKG does not show any acute changes. The symptoms could suggest unstable angina. Hemodynamically she seems to be stable. So far there is no evidence of myocardial injury. Baseline troponin is sligh. Serial cardiac enzymes would be appropriate. The risk of bleeding, hematoma, vascular injury, myocardial infarction, myocardial perforation, malignant cardiac arrhythmias ,CVA, renal failure and other concomitant complications were explained in detail. Treated with subcu Lovenox (2) Diabetes mellitus: Aggressive management of diabetes would be appropriate Qualifiers: Diabetes mellitus complication status: with hyperglycemia Diabetes mellitus parts counterman insulin use: with parts counterman use Diabetes mellitus type: type 2 Qualified Code(s): E11.65 - Type 2 diabetes mellitus with hyperglycemia; Z79.4 - group home (current) use of insulin (3) Dyslipidemia: May continue on the current medications (4) HTN (hypertension): Will try to optimize the antihypertensive medications. Qualifiers: Hypertension type: essential hypertension Qualified Code(s): I10 - Essential (primary) hypertension (5) BETH (obstructive sleep apnea): May continue on the current management (6) Hematoma: I may go ahead and ovarian ultrasound examination of the left groin to evaluate for any pseudoaneurysm. Plan The other problems are Anemia, mild Morbid obesity Degenerative joint disease. History of pulmonary embolism History of diastolic heart failure I may go ahead and do a Doppler examination of the left groin to evaluate the swelling, to rule out any pseudoaneurysm. Patient may be kept on the current medications. Review treatment subcu Lovenox for the unstable angina Coding Level of Care Code 73604 Diagnoses Atherosclerotic heart disease of [place] coronary artery with unstable angina pectoris I25.110 Type 2 diabetes mellitus with hyperglycemia, with long-term current use of insulin E11.65; Z79.4 Diabetes mellitus complication status: with hyperglycemia Diabetes mellitus senior care insulin use: with parts counterman use Diabetes mellitus type: type 2 Dyslipidemia E78.5 Essential hypertension I10 Hypertension type: essential hypertension BETH (obstructive sleep apnea) G47.33 Hematoma T14.8XXA
[2023-12-20] MEDS: HYDROcodone-acetaminophen 10-325 mg Tablet 1 TAB PO (20:54)
[2023-12-20] MEDS: sertraline 50 mg Tablet 25 MG PO (20:54)
[2023-12-20] MEDS: trazodone 50 mg Tablet PO (20:54)
[2023-12-20 20:59] LABS: Glucose Point of Care 192 mg/dL (70-110)
[2023-12-20 21:27] LABS: Troponin 5 6HR 121.8 ng/L (0-10); Troponin 5 6HR Delta 12.8 ng/L (0-12)
[2023-12-20] MEDS: enoxaparin 100 mg/mL Syringe SUBCUT (22:20)
[2023-12-20] MEDS: ropinirole 0.25 mg Tablet 0.5 MG PO (22:20)
[2023-12-20] MEDS: tamsulosin 0.4 mg Capsule 0.400000000000000022 MG PO (22:20)
[2023-12-20] MEDS: ticagrelor 90 mg Tablet PO (22:20)
[2023-12-20] MEDS: sodium chloride 0.9% 1,000 ML 50 ML IV (22:21)
[2023-12-21] VITALS (11 sets, daily range): BP systolic 93–130; BP diastolic 51–65; PULSE 67–78; RESP 16–20; TEMP 36.4–37.1; O2SAT 2–99; BMI 38.6
[2023-12-21 03:57] LABS: Basophils # 0.1 10^3/uL (0.0-0.1); Basophils % 0.8 %; Eosinophils # 0.6 10^3/uL (0.0-0.8); Eosinophils % 7.5 %; Hematocrit 32.6 % (36-47); Lymphocytes # 2.8 10^3/uL (0.8-4.8); Lymphocytes % 36.5 %; Mean Corpuscular HGB Conc 31.3 g/dL (30-55); Mean Corpuscular Hemoglobin 29.1 pg (27-33); Mean Corpuscular Volume 92.9 fl (85-98); Mean Platelet Volume 9.2 fL (7.4-10.4); Monocytes # 0.6 10^3/uL (0.2-0.9); Monocytes % 7.9 %; Neutrophils # 3.63 10^3/uL (1.8-7.7); Neutrophils % 46.8 %; Nucleated Red Blood Cells % 0 %; Platelet Count 322 10^3/cmm (157-399); Red Blood Count 3.51 10^6/uL (3.85-5.65); Red Cell Distribution Width 14.1 % (12.1-15.1); White Blood Count 7.75 10^3/uL (3.29-11.43)
[2023-12-21 04:15] LABS: Alanine Aminotransferase 9 U/L (0-33); Albumin Level 3.1 g/dL (3.5-5.2); Alkaline Phosphatase 97 U/L (35-105); Anion Gap 13.3 (5-19); Aspartate Amino Transferase 9 U/L (0-32); Blood Urea Nitrogen 32 mg/dL (8-23); Calcium 9.4 mg/dL (8.5-10.5); Carbon Dioxide 23 mmol/L (22-29); Chloride 102 mmol/L (98-107); Globulin 3.1 g/dL (1.3-4.6); Glomerular Filtration Rate 41.6 mL/min (90-130); Glucose 162 mg/dL (65-115); Magnesium 1.9 mg/dL (1.7-2.3); Osmolality Calculated 288 mOsm/kg (285-295); Phosphorus 4.4 mg/dL (2.5-4.5); Potassium 4.3 mmol/L (3.5-5.1); Sodium 134 mmol/L (136-145); Total Bilirubin 0.3 mg/dL (0.15-1.2); Total Protein 6.2 g/dL (6.6-8.7)
[2023-12-21 04:17] LABS: Chol HDL Ratio 4.22 mg/dL (0.0-4.40); Cholesterol 156 mg/dL (0-200); Creatinine Clr Calc Pharmacy 50.9559; HDL Cholesterol 37 mg/dL (60-100); LDL Cholesterol Calculated 101 mg/dL (50-129); LDL HDL Ratio 2.73 RATIO (0.00-3.22); Triglycerides 88 mg/dL (0-150); VLDL Cholestrol Calculation 18 mg/dL (0-30)
[2023-12-21 04:30] LABS: Folate Level 8.6 ng/mL (4.8-37.3)
[2023-12-21] MEDS: metoprolol succinate ER (24 HR) 50 mg Tablet 75 MG PO (05:05)
[2023-12-21] MEDS: levothyroxine 25 mcg Tablet PO (05:05)
[2023-12-21] MEDS: atorvastatin 40 mg Tablet PO (05:06)
[2023-12-21] MEDS: heparin 5,000 unit/mL INJ 1 mL 5000 UNIT SUBCUT (05:06)
[2023-12-21] MEDS: ticagrelor 90 mg Tablet PO ×2 (05:06→21:16)
[2023-12-21] MEDS: insulin glargine 100 units/1 mL 32 UNIT SUBCUT (05:06)
[2023-12-21] MEDS: pantoprazole DR 40 mg Tablet PO (05:06)
[2023-12-21] MEDS: aspirin 81 mg EC Tablet PO (05:06)
[2023-12-21 07:09] LABS: Glucose Point of Care 179 mg/dL (70-110)
--- NOTE | 2023-12-21 07:16 | USCV_ITS ---
Watson Bridges Age: 63 Gender: F : 1960 Exam Date: 12/21/2023 07:31 Ordering Phys: Denisse Rodriguez MD ([email or web address]) Technologist: Exam Location: [facility] Indication: post cath Findings A large hypoechoic area measuring 15.6 x 6.6 x 11.9 cm No Doppler flow signals were noted in in the area inside this area. The common femoral artery was found to have monophasic flow pattern with no connection to this hypoechoic area Conclusions Features suggestive of hematoma measuring 15.6 x 6.6 x 11.9 cm in the left groin Appears to have no communication with the adjacent artery Dr Denisse Rodriguez MD FACC (Electronically Signed) Final Date: 21 December 2023 14:11 S
[2023-12-21] MEDS: insulin lispro 100 unit/1 mL SUBCUT ×3 (09:00→17:44)
[2023-12-21] MEDS: isosorbide mononitrate ER 30 mg Tablet PO (09:16)
[2023-12-21] MEDS: buPROPion SR (12 HR) 100 mg Tablet 200 MG PO ×2 (09:16→17:44)
--- NOTE | 2023-12-21 09:23 | P.PN_ITS ---
Subjective 2 Subjective: Patient is chest pain-free now. Troponin mildly elevated. He has a large hematoma in left groin from previous procedure. Vitals/I&O/Wt Last Vital Signs Temp 98.0 F 12/21/23 08:00 Pulse 72 12/21/23 08:00 Resp 20 H 12/21/23 08:00 BP 119/65 12/21/23 08:00 Pulse Ox 97 12/21/23 08:00 O2 Del Method Nasal Cannula 12/21/23 08:00 12/20/23 12/21/23 12/21/23 22:59 06:59 14:59 Intake Total 50.1 / 50.1 Balance 50.1 / 50.1 Weight last 48 hrs Weight 218 lb 3 oz Weight 217 lb Weight 217 lb Data 12/22/23 04:49 12/22/23 04:49 A&P Assessment and plan (1) Atherosclerotic heart disease of [place] coronary artery with unstable angina pectoris: (2) Diabetes mellitus: Qualifiers: Diabetes mellitus type: type 2 Diabetes mellitus long term acute care registered nurse insulin use: with long term acute care registered nurse use Diabetes mellitus complication status: with hyperglycemia Qualified Code(s): E11.65 - Type 2 diabetes mellitus with hyperglycemia; Z79.4 - group home (current) use of insulin (3) Dyslipidemia: (4) HTN (hypertension): Qualifiers: Hypertension type: essential hypertension Qualified Code(s): I10 - Essential (primary) hypertension (5) BETH (obstructive sleep apnea): (6) Hematoma: Plan Patient has presented with chest discomfort that is resolved. Recent cath showed distal vessel disease. Circumflex artery had PCI. EKG is not showing much changes. Will medically treat her. She has access issues for cardiac cath Has a large hematoma in left groin. Will have vascular surgery opinion about possible evacuation although patient is stable. Continue dual antiplatelet therapy Thank you for involving us with care of patient. We will continue to follow. Please call with questions. Attestations 2 Medical Necessity Statement*: Care expected to cross 2 midnights. Coding Level of Care Code Acute Code for Chg Fwd Diagnoses Atherosclerotic heart disease of [place] coronary artery with unstable angina pectoris I25.110 Type 2 diabetes mellitus with hyperglycemia, with long-term current use of insulin E11.65; Z79.4 Diabetes mellitus type: type 2 Diabetes mellitus long term acute care registered nurse insulin use: with long term acute care registered nurse use Diabetes mellitus complication status: with hyperglycemia Dyslipidemia E78.5 Essential hypertension I10 Hypertension type: essential hypertension BETH (obstructive sleep apnea) G47.33 Hematoma T14.8XXA
[2023-12-21] MEDS: ranolazine (12HR) 500 mg Tablet PO ×2 (11:28→17:44)
[2023-12-21 11:40] LABS: Glucose Point of Care 144 mg/dL (70-110)
[2023-12-21 12:03] LABS: Free T4 Free Thyroxine 1.02 ng/dL (0.82-1.77); T3 Free 2.1 PG/ML (2.0-4.4)
--- NOTE | 2023-12-21 12:24 | PM.PN ---
Subjective Subjective: No acute vents overnight. Patient has not had any further chest pain. Has remained hemodynamically stable and afebrile. Remains on room air. Vitals/I&O/Wt Last Vital Signs Temp 97.9 F 12/21/23 11:22 Pulse 69 12/21/23 11:22 Resp 16 12/21/23 11:22 BP 122/57 12/21/23 11:22 Pulse Ox 95 12/21/23 11:22 O2 Del Method Room Air 12/21/23 11:22 O2 Flow Rate 1 12/21/23 09:42 12/20/23 12/21/23 12/21/23 22:59 06:59 14:59 Intake Total 50.1 / 50.1 Balance 50.1 / 50.1 Weight last 48 hrs Weight 98.968 kg Weight 98.43 kg Weight 98.43 kg Physical Exam Narrative: General: No acute distress, AO x3, HEENT: PERRLA, pupils bilaterally equal and reactive Chest: Normal vesicular breath sounds, no added sounds, equal good air entry bilaterally CVS: S1-S2 regular, no murmurs, no tachycardia, no gallops, no rubs Abdomen: Soft, nontender, no organomegaly, bowel sounds present Neuro: No focal deficits, no facial deformity, AO x3, power 5/5 in all limbs Data 12/21/23 03:26 12/21/23 03:26 A&P Assessment and plan (1) Chest pain: Features consistent with unstable angina. Patient recently had PCI to LCx for posterior wall [place]. Will consult cardiology for further recommendations. Cycle troponin slightly elevated. Started on full dose Lovenox 1 mg/kg body weight daily as per creatinine clearance yesterday. Will plan to continue for overall 48 hours. Discussed in detail with cardiology team. For now plan is for medical management given distal lesion found on previous cardiac angiogram, complex vascular access. Continue with aspirin, Brilinta, statin, beta-marjorie. Increase dose of Imdur to 30 mg twice daily and add Ranexa 500 mg twice daily. Qualifiers: Chest pain type: unspecified Qualified Code(s): R07.9 - Chest pain, unspecified (2) Status post coronary artery stent placement: (3) CAD (coronary artery disease): Qualifiers: Coronary Disease-Associated Artery/Lesion type: [place] artery [place] vs. transplanted heart: [place] heart Associated angina: angina presence unspecified Qualified Code(s): I25.10 - Atherosclerotic heart disease of [place] coronary artery without angina pectoris (4) DM type 2 (diabetes mellitus, type 2): Recent A1c more than 10. Insulin sliding scale. Continue with home dose of Lantus. Will uptitrate the insulin as per requirements for the next 24 hours. Carb consistent diet. Qualifiers: Diabetes mellitus terminal operations manager insulin use: without terminal operations manager use Diabetes mellitus complication status: without complication Qualified Code(s): E11.9 - Type 2 diabetes mellitus without complications (5) Chronic kidney disease (CKD): Baseline creatinine around 1.1-1.3. Creatinine currently stable. Medical reconciliation done for nephrotoxic drugs. Continue with normal saline 50 cc/h to finish a 1 bag. Watch for fluid overload. Monitor renal functions daily. Monitor electrolytes. Qualifiers: Chronic kidney disease stage: stage 3 (moderate) Chronic kidney disease stage 3 subtype: stage 3a (GFR 45-59) Qualified Code(s): N18.31 - Chronic kidney disease, stage 3a (6) Hyperkalemia: Resolved. Monitor BMP daily. Plan Groin hematoma: Did have hematoma post angiogram recently as well. Plan for arterial duplex for further evaluation. Continue other chronic medications. Carb consistent cardiac diet Full code Full dose Lovenox will be sufficient for DVT prophylaxis Protonix for PUD prophylaxis Attestations Medical Necessity Statement*: Requires further hospitalization for management of unstable angina in a patient who underwent recent PCI to LCx in setting of posterior wall [place], type 2 diabetes mellitus, CKD with concerns for groin pseudoaneurysm Diagnoses Chest pain, unspecified type R07.9 Chest pain type: unspecified Status post coronary artery stent placement Z95.5 Coronary artery disease involving [place] coronary artery of [place] heart, angina presence unspecified I25.10 Coronary Disease-Associated Artery/Lesion type: [place] artery [place] vs. transplanted heart: [place] heart Associated angina: angina presence unspecified Type 2 diabetes mellitus without complication, without long-term current use of insulin E11.9 Diabetes mellitus [facility] insulin use: without terminal operations manager use Diabetes mellitus complication status: without complication Stage 3a chronic kidney disease N18.31 Chronic kidney disease stage: stage 3 (moderate) Chronic kidney disease stage 3 subtype: stage 3a (GFR 45-59) Hyperkalemia E87.5
[2023-12-21] MEDS: morphine 4 mg/mL SDV 1 mL 2 MG IVP (12:35)
[2023-12-21] MEDS: HYDROcodone-acetaminophen 10-325 mg Tablet 1 TAB PO (12:47)
[2023-12-21 17:12] LABS: Glucose Point of Care 153 mg/dL (70-110)
[2023-12-21 20:55] LABS: Glucose Point of Care 109 mg/dL (70-110)
[2023-12-21 20:55] LABS: Glucose Point of Care 220 mg/dL (70-110)
[2023-12-21] MEDS: tamsulosin 0.4 mg Capsule 0.400000000000000022 MG PO (21:16)
[2023-12-21] MEDS: trazodone 50 mg Tablet PO (21:16)
[2023-12-21] MEDS: enoxaparin 100 mg/mL Syringe SUBCUT (21:16)
[2023-12-21] MEDS: sertraline 50 mg Tablet 25 MG PO (21:16)
[2023-12-21] MEDS: ropinirole 0.25 mg Tablet 0.5 MG PO (21:16)
[2023-12-22 04:00] VITALS: BP 131/57; PULSE 74; RESP 78; TEMP 36.7; O2SAT 98
[2023-12-22 05:07] LABS: Basophils % 0.5 %; Eosinophils # 0.7 10^3/uL (0.0-0.8); Eosinophils % 7.5 %; Lymphocytes # 2.4 10^3/uL (0.8-4.8); Lymphocytes % 27.3 %; Mean Corpuscular HGB Conc 31.2 g/dL (30-55); Mean Platelet Volume 9.2 fL (7.4-10.4); Monocytes # 0.7 10^3/uL (0.2-0.9); Monocytes % 7.7 %; Neutrophils # 4.92 10^3/uL (1.8-7.7); Neutrophils % 56.8 %; Nucleated Red Blood Cells % 0 %; Platelet Count 295 10^3/cmm (157-399); Red Blood Count 3.55 10^6/uL (3.85-5.65); White Blood Count 8.67 10^3/uL (3.29-11.43)
[2023-12-22 05:26] LABS: Alanine Aminotransferase 9 U/L (0-33); Alkaline Phosphatase 97 U/L (35-105); Anion Gap 12.4 (5-19); Aspartate Amino Transferase 12 U/L (0-32); Blood Urea Nitrogen 31 mg/dL (8-23); Calcium 8.7 mg/dL (8.5-10.5); Carbon Dioxide 26 mmol/L (22-29); Chloride 106 mmol/L (98-107); Globulin 2.8 g/dL (1.3-4.6); Glomerular Filtration Rate 32.8 mL/min (90-130); Glucose 129 mg/dL (65-115); Osmolality Calculated 298 mOsm/kg (285-295); Potassium 4.4 mmol/L (3.5-5.1); Sodium 140 mmol/L (136-145); Total Bilirubin 0.3 mg/dL (0.15-1.2); Total Protein 5.8 g/dL (6.6-8.7)
[2023-12-22 06:00] VITALS: PULSE 76
[2023-12-22] MEDS: levothyroxine 25 mcg Tablet PO (06:00)
[2023-12-22] MEDS: pantoprazole DR 40 mg Tablet PO (06:00)
[2023-12-22] MEDS: ticagrelor 90 mg Tablet PO (06:00)
[2023-12-22] MEDS: insulin glargine 100 units/1 mL 35 UNIT SUBCUT (06:00)
[2023-12-22] MEDS: metoprolol succinate ER (24 HR) 50 mg Tablet 75 MG PO (06:00)
[2023-12-22] MEDS: aspirin 81 mg EC Tablet PO (06:01)
[2023-12-22] MEDS: atorvastatin 40 mg Tablet PO (06:01)
[2023-12-22 06:13] LABS: Glucose Point of Care 151 mg/dL (70-110)
--- NOTE | 2023-12-22 07:55 | PM.PN ---
Subjective Subjective: Patient is chest pain free. Vitals/I&O/Wt Last Vital Signs Temp 98.0 F 12/22/23 04:00 Pulse 76 12/22/23 06:00 Resp 78 H 12/22/23 04:00 BP 131/57 12/22/23 04:00 Pulse Ox 98 12/22/23 04:00 O2 Del Method Room Air 12/22/23 04:00 O2 Flow Rate 1 12/21/23 09:42 12/21/23 12/22/23 12/22/23 22:59 06:59 14:59 Intake Total 1760 / 2120 200 / 2320 Balance 1760 / 2120 200 / 2320 Weight last 48 hrs Weight 230 lb Weight 218 lb 3 oz Weight 217 lb Weight 217 lb Physical Exam Narrative: GENERAL: Patient is alert, awake and oriented x3. [] NECK: No jugular vein distension. [] HEENT: No cyanosis. No icterus. No pallor. [] HEART: Regular S1 and S2. No murmur, rub or gallop. [] LUNGS: Clear to auscultate bilaterally. [] CENTRAL NERVOUS SYSTEM: Grossly nonfocal. [] EXTREMITIES: Has large hematoma in left groin. Data 12/22/23 04:49 12/22/23 04:49 A&P Assessment and plan (1) Atherosclerotic heart disease of [place] coronary artery with unstable angina pectoris: (2) Diabetes mellitus: Qualifiers: Diabetes mellitus type: type 2 Diabetes mellitus residential insulin use: with residential use Diabetes mellitus complication status: with hyperglycemia Qualified Code(s): E11.65 - Type 2 diabetes mellitus with hyperglycemia; Z79.4 - extermination inspector (current) use of insulin (3) Dyslipidemia: (4) HTN (hypertension): Qualifiers: Hypertension type: essential hypertension Qualified Code(s): I10 - Essential (primary) hypertension (5) BETH (obstructive sleep apnea): (6) Hematoma: Plan Patient is doing well. Uptitrating antianginal medications. Continue dual antiplatelet therapy. Case discussed with vascular surgery for left groin hematoma. Plan for conservative therapy at this time. Thank you for involving us with care of patient. Please call with questions. Attestations Medical Necessity Statement*: Care expected to cross 2 midnights. Coding Level of Care Code Acute Code for Chg Fwd Diagnoses Atherosclerotic heart disease of [place] coronary artery with unstable angina pectoris I25.110 Type 2 diabetes mellitus with hyperglycemia, with long-term current use of insulin E11.65; Z79.4 Diabetes mellitus type: type 2 Diabetes mellitus roasterman insulin use: with residential use Diabetes mellitus complication status: with hyperglycemia Dyslipidemia E78.5 Essential hypertension I10 Hypertension type: essential hypertension BETH (obstructive sleep apnea) G47.33 Hematoma T14.8XXA
[2023-12-22 08:00] VITALS: BP 145/61; PULSE 76; TEMP 36.6
[2023-12-22] MEDS: insulin lispro 100 unit/1 mL SUBCUT (08:13)
[2023-12-22] MEDS: buPROPion SR (12 HR) 100 mg Tablet 200 MG PO (08:13)
[2023-12-22] MEDS: ranolazine (12HR) 500 mg Tablet PO (08:13)
[2023-12-22] MEDS: isosorbide mononitrate ER 60 mg Tablet PO (08:13)
--- NOTE | 2023-12-22 08:53 | PC.CHAP ---
Pastoral Care Encounter/Spiritual Assessment Type of Contact [] Declined delicatessen clerk visit [] Patient/Family/Request visit [] Outpatient visit [] Follow-up visit [] Physician referral [] Code/Alert [x] Routine visit [] Staff referral [] Actively dying [] Patient sleeping [] Family support [] [] Out of room [] Palliative care [] [] Receiving care in room [] Pre-surgical visit [] Trauma [] Long length of stay [] ICU visit [] Other: Relational/Emotional Strength [x] Patient feels connected with others/family/visitors/staff [x] Distress [] Loneliness/isolation [] Abandonment Spirituality of Patient [x] Person of Lizette [] Attends Adventism of their Lizette [] Believes in Prayer [] Reads Bible or Taoism materials [] There are Spiritual issues to be addressed Sausage Cooker Interventions [x] Prayer [x] Active listening [x] Non-anxious presence [x] Spiritual/emotional support [] Crisis/trauma care [x] Spiritual counseling [] Bereavement support [] Provided bereavement packet [] Provided Bible/devotional materials [] Provided toy/stuffed animal, coloring book to patient or family member [] Provided Communion [] Anointing/Burden [] Salvation [x] Completed spiritual assessment [] Other: Impact on Illness or Injury [] Angry [] Fearful [] Anxious [] Often cries [] Exhaustion [] Unable to work [] Unable to attend confucianism [] Unable to walk/stand [] Unable to read [] Unable to drive [] Unable to eat/drink [] Unable to sleep [] Unable to be with family [] Patient intubated [] Other: Summary Time spent with patient 10 min
[2023-12-22] MEDS: HYDROcodone-acetaminophen 10-325 mg Tablet 1 TAB PO (09:14)
--- NOTE | 2023-12-22 10:37 | PM.DCS ---
Discharge Providers Date of Admission: 12/20/23 17:02 Date of Discharge: December 22, 2023 Attending Provider at Admission: Clovis Szymanski MD Attending Provider at Discharge: Clovis Szymanski MD Primary Care Provider: Niko Jerez MD Diagnoses at Discharge Discharge Diagnosis (1) Atherosclerotic heart disease of [place] coronary artery with unstable angina pectoris: Status: Acute (2) Diabetes mellitus: Status: Inactive Qualifiers: Diabetes mellitus complication status: with hyperglycemia Diabetes mellitus [facility] insulin use: with [facility] use Diabetes mellitus type: type 2 Qualified Code(s): E11.65 - Type 2 diabetes mellitus with hyperglycemia; Z79.4 - jail (current) use of insulin (3) Dyslipidemia: Status: Inactive (4) HTN (hypertension): Status: Inactive Qualifiers: Hypertension type: essential hypertension Qualified Code(s): I10 - Essential (primary) hypertension (5) BETH (obstructive sleep apnea): Status: Chronic (6) Hematoma: Status: Acute Reason for Visit Reason for Visit: Chest pain Hospital Course Hospital Course Watson Bridges is a 63 year old female with past medical history of type 2 diabetes mellitus, hypothyroidism, CAD with multiple PCI in the past and who recently underwent PCI to LCx for posterior wall [place] presents to the ER from long-term because of retrosternal chest pain radiating to left shoulder along with nausea and radiating to neck since today morning. Patient has been having chest pain on and off for last 2 to 3 days but got worse today. Has been having difficulty in breathing on room air specially during mild exertion since last discharge and has not worsened. States has been compliant with medications. Patient was admitted to the hospital for evaluation and management of unstable angina in setting of recent PCI. Cardiology was consulted. Given her baseline coronary disease decision was made to treat medically. Her antianginal medications were uptitrated. Patient continued complain of pain in her groin for which lower limb ultrasound was done to rule out pseudoaneurysm. Lower limb Doppler showed hematoma. Care were discussed in detail with vascular surgeon who advised for further monitoring without any surgical intervention given no concerns for infection, increased in size or worsening anemia. She has been discharged in hemodynamically stable condition back to long-term with adjusted antianginal medications and heat pad at groin hematoma site. Physical Exam Narrative: General: No acute distress, AO x3, HEENT: PERRLA, pupils bilaterally equal and reactive Chest: Normal vesicular breath sounds, no added sounds, equal good air entry bilaterally CVS: S1-S2 regular, no murmurs, no tachycardia, no gallops, no rubs Abdomen: Soft, nontender, no organomegaly, bowel sounds present Neuro: No focal deficits, no facial deformity, AO x3, power 5/5 in all limbs Discharge Data Studies Completed and Pending Completed Studies During Hospitalization Category Date Time Status XR chest 1V portable [id number] Stat Exams 12/20/23 13:14 Completed US arterial duplex groin LT [CV arterial dup groin LT Ultrasound 12/21/23 07:16 Completed [id number]] Stat Pending at discharge Category Date Time Status COVID [SARS Covid-2 Antigen] Routine Lab 12/22/23 10:15 Received Urinalysis Routine Lab 12/20/23 17:41 Uncollected Radiology Impressions Chest X-Ray 12/20/23 13:14 IMPRESSION: No acute findings. Laboratory Results WBC 8.67 10^3/uL (3.29-11.43) 12/22/23 04:49 RBC 3.55 10^6/uL (3.85-5.65) L 12/22/23 04:49 Hgb 10.30 g/dL (11.27-16.99) L 12/22/23 04:49 Hct 33.0 % (36-47) L 12/22/23 04:49 MCV 93.0 fl (85-98) 12/22/23 04:49 MCH 29.0 pg (27-33) 12/22/23 04:49 MCHC 31.2 g/dL (30-55) 12/22/23 04:49 RDW 14.0 % (12.1-15.1) 12/22/23 04:49 Plt Count 295 10^3/cmm (157-399) 12/22/23 04:49 MPV 9.2 fL (7.4-10.4) 12/22/23 04:49 Neut % (Auto) 56.8 % 12/22/23 04:49 Lymph % (Auto) 27.3 % 12/22/23 04:49 [place] % (Auto) 7.7 % 12/22/23 04:49 Eos % (Auto) 7.5 % 12/22/23 04:49 Baso % (Auto) 0.5 % 12/22/23 04:49 Neut # (Auto) 4.92 10^3/uL (1.8-7.7) 12/22/23 04:49 Lymph # (Auto) 2.4 10^3/uL (0.8-4.8) 12/22/23 04:49 [place] # (Auto) 0.7 10^3/uL (0.2-0.9) 12/22/23 04:49 Eos # (Auto) 0.7 10^3/uL (0.0-0.8) 12/22/23 04:49 Baso # (Auto) 0.0 10^3/uL (0.0-0.1) 12/22/23 04:49 Nucleated RBC % (auto) 0 % 12/22/23 04:49 Nucleated RBCs # 0.0 /100WBC 12/22/23 04:49 Sodium 140 mmol/L (136-145) 12/22/23 04:49 Potassium 4.4 mmol/L (3.5-5.1) 12/22/23 04:49 Chloride 106 mmol/L (98-107) 12/22/23 04:49 Carbon Dioxide 26 mmol/L (22-29) 12/22/23 04:49 Anion Gap 12.4 (5-19) 12/22/23 04:49 BUN 31 mg/dL (8-23) H 12/22/23 04:49 Creatinine 1.6 mg/dL (0.5-0.9) H 12/22/23 04:49 GFR Calculation 32.8 mL/min (90-130) L 12/22/23 04:49 Glucose 129 mg/dL (65-115) H 12/22/23 04:49 POC Glucose 151 mg/dL (70-110) H 12/22/23 06:05 Calculated Osmolality 298 mOsm/kg (285-295) H 12/22/23 04:49 Calcium 8.7 mg/dL (8.5-10.5) 12/22/23 04:49 Phosphorus 4.4 mg/dL (2.5-4.5) 12/21/23 03:26 Magnesium 1.9 mg/dL (1.7-2.3) 12/21/23 03:26 Iron 45 ug/dL (37-145) 12/20/23 15:40 TIBC 226 mcg/dl 12/20/23 15:40 % Saturation 19.9 % (20-50) L 12/20/23 15:40 Unsat Iron Binding 181 ug/dL (112-347) 12/20/23 15:40 Total Bilirubin 0.3 mg/dL (0.15-1.2) 12/22/23 04:49 AST 12 U/L (0-32) 12/22/23 04:49 ALT 9 U/L (0-33) 12/22/23 04:49 Alkaline Phosphatase 97 U/L (35-105) 12/22/23 04:49 Troponin T Baseline 109 ng/L (0-10) H* 12/20/23 13:42 Troponin T 120 Minute 106.7 ng/L (0-10) H 12/20/23 15:40 Delta Troponin T -2.3 ABS# (0-10) L 12/20/23 15:40 Troponin T Hi Sens 6Hr 121.8 ng/L (0-10) H 12/20/23 19:47 Troponin T Hi Sens 6Hr Delta 12.8 ng/L (0-12) H* 12/20/23 19:47 Total Protein 5.8 g/dL (6.6-8.7) L 12/22/23 04:49 Albumin 3.0 g/dL (3.5-5.2) L 12/22/23 04:49 Globulin 2.8 g/dL (1.3-4.6) 12/22/23 04:49 Triglycerides 88 mg/dL (0-150) 12/21/23 03:26 Cholesterol 156 mg/dL (0-200) 12/21/23 03:26 LDL Cholesterol, Calc 101 mg/dL (50-129) 12/21/23 03:26 Total VLDL Cholesterol 18 mg/dL (0-30) 12/21/23 03:26 HDL Cholesterol 37 mg/dL (60-100) L 12/21/23 03:26 LDL/HDL Ratio 2.73 RATIO (0.00-3.22) 12/21/23 03:26 Cholesterol/HDL Ratio 4.22 mg/dL (0.0-4.40) 12/21/23 03:26 Folate 8.6 ng/mL (4.8-37.3) 12/21/23 03:26 TSH 6.60 uIU/mL (0.27-4.20) H 12/20/23 15:40 Free T4 1.02 ng/dL (0.82-1.77) 12/21/23 03:26 Free T3 2.1 PG/ML (2.0-4.4) 12/21/23 03:26 Vitals Last Vital Signs Temp 97.8 F 12/22/23 08:00 Pulse 76 12/22/23 08:00 Resp 78 H 12/22/23 04:00 BP 145/61 12/22/23 08:00 Pulse Ox 98 12/22/23 04:00 O2 Del Method Room Air 12/22/23 04:00 O2 Flow Rate 1 12/21/23 09:42 Discharge Plan Discharge Patient Disposition: Xfer SNF Condition: Stable Prescriptions: New ranolazine 500 mg Tablet Extended Release 12 Hr 500 mg PO BID Qty: 60 0RF Continued (DME) walker with seat and brakes See Rx Instructions .Route .MEDSUPPLY Qty: 1 0RF Rx Instructions: As directed (DME) InPen (for Humalog) Insulin Pen See Rx Instructions .Route Qty: 150 0RF Rx Instructions: qid to inject insulin (DME) diabetic shoes and inserts See Rx Instructions .Route .MEDSUPPLY Qty: 1 0RF Rx Instructions: As directed (DME) lancets [BD Ultra Fine Lancets] 33 gauge misc See Rx Instructions .Route Qty: 100 1RF Rx Instructions: As directed (DME) insulin syringe-needle U-100 [BD Veo Insulin Syringe UF] 1/2 mL 31 gauge x 15/64 syringe See Rx Instructions .ROUTE .MEDSUPPLY Qty: 100 2RF Rx Instructions: As directed pantoprazole 40 mg tablet,delayed release (DR/EC) 40 mg PO QAM insulin glargine [Lantus Solostar U-100 Insulin] 100 unit/mL (3 mL) insulin pen 32 unit SUBCUT QAM ondansetron HCl 4 mg tablet 4 mg PO BID PRN (Reason: Nausea) hydrocodone-acetaminophen 10-325 mg tablet 1 tab PO Q6H PRN (Reason: Pain, Moderate) Ozempic 0.25 mg or 0.5 mg (2 mg/3 mL) pen injector 0.5 mg SUBCUT Q7D tamsulosin 0.4 mg capsule 0.4 mg PO BEDTIME@22 ropinirole 0.5 mg tablet 0.5 mg PO BEDTIME@22 Qty: 30 2RF (DME) oxygen tubing See Rx Instructions .Route .MEDSUPPLY Qty: 1 0RF Rx Instructions: [employer], [place] ([facility]) ASO to RIGHT See Rx Instructions .Route .MEDSUPPLY Qty: 1 0RF Rx Instructions: As directed ([facility]) wheel-chair with foot rest See Rx Instructions .Route .MEDSUPPLY Qty: 1 0RF Rx Instructions: As directed by HOME levothyroxine 25 mcg capsule 25 mcg PO QAM sertraline [Zoloft] 25 mg tablet 25 mg PO BEDTIME trazodone 50 mg tablet 50 mg PO BEDTIME ([facility]) Accu-Chek Guide test strips Strip See Rx Instructions .Route Qty: 100 5RF Rx Instructions: As directed; to test 5 x daily ([facility]) Incontinence Supplies See Rx Instructions .Route .MEDSUPPLY Qty: 1 0RF Rx Instructions: As directed furosemide 20 mg tablet 20 mg PO DAILY Qty: 30 5RF calcium carbonate [Tums] 200 mg calcium (500 mg) Tablet,Chewable 1,000 mg PO DAILY PRN (Reason: Stomach Upset) nitroglycerin [Nitrostat] 0.4 mg Tablet, Sublingual 0.4 mg SUBLINGUAL Q5M PRN (Reason: Chest Pain) Rx Instructions: do not exceed 3 doses per episode potassium chloride 10 mEq tablet extended release 10 meq PO DAILY@07 cholecalciferol (vitamin D3) 1,250 mcg (50,000 unit) capsule 50,000 unit PO Q7D Rx Instructions: Takes on Fridays bupropion HCl 200 mg tablet sustained-release 12 hr 200 mg PO BID insulin lispro [Humalog KwikPen Insulin] 100 unit/mL insulin pen 29 sliding scale dose SUBCUT TID metoprolol succinate 50 mg tablet extended release 24 hr 75 mg PO QAM acetaminophen 650 mg Tablet Extended Release 1,300 mg PO Q8H PRN (Reason: Pain) magnesium hydroxide [Milk of Magnesia] 400 mg/5 mL Suspension 30 ml PO DAILY PRN (Reason: Constipation) atorvastatin 40 mg tablet 40 mg PO DAILY@07 Qty: 30 0RF aspirin 81 mg Tablet,Delayed Release (Dr/Ec) 81 mg PO DAILY@07 Qty: 60 0RF Brilinta 90 mg tablet 90 mg PO BID@, Qty: 120 0RF Changed isosorbide mononitrate 30 mg Tablet Extended Release 24 Hr 60 mg PO DAILY Qty: 30 0RF Discontinued metformin 1,000 mg tablet 1,000 mg PO DAILY Hold Instructions: Resume on 11/18/23. triamterene-hydrochlorothiazid 37.5-25 mg tablet 1 tab PO .@NOON Discharge Orders: Discharge Order (Routine); Ordered 12/22/23 Ordered By: Clovis Szymanski Referrals: [facility] [Outside] Niko Jerez MD [Primary Care Provider] - 4-7 days Farrah Smith FNP [Nurse Practitioner] - 1 month Patient Instructions: Ranolazine (By mouth) (Ranexa, Aspruzyo), Opioid Safety Discharge Attestations Time Spent in Discharge Care*: greater than 30 min Status at Discharge: Cognitive status at discharge: cognitively intact, Behavioral status at discharge: cooperative, Quality Metrics Clinical Quality Measures [ No reported AMI, CVA or VTE this stay] Coding Level of Care Code Acute Code for g Fwd Diagnoses Atherosclerotic heart disease of [place] coronary artery with unstable angina pectoris I25.110 Type 2 diabetes mellitus with hyperglycemia, with long-term current use of insulin E11.65; Z79.4 Diabetes mellitus complication status: with hyperglycemia Diabetes mellitus tank terminal gauger insulin use: with tank terminal gauger use Diabetes mellitus type: type 2 Dyslipidemia E78.5 Essential hypertension I10 Hypertension type: essential hypertension BETH (obstructive sleep apnea) G47.33 Hematoma T14.8XXA
[2023-12-22 10:45] LABS: SARS Covid-2 Antigen negative (Negative)
[2023-12-22 10:55] VITALS: BP 145/61; PULSE 76; TEMP 36.6
--- NOTE | 2023-12-22 11:30 | PC.NURSE ---
Report is called to Valeria at [facility]. Patient is sent with all of her belongings and discharge paperwork.
== END 2023-12-22 11:30 | disposition skilled nursing facility (03) ==
LOC: ER 16:37 → CSU 17:04
PROVIDERS: Admitting Provider Student in an Organized Health Care Education/Training Program; Emergency Provider Emergency Medicine; PCP Internal Medicine; Visit Provider Student in an Organized Health Care Education/Training Program
DX: I25.110 Atherosclerotic heart disease of native coronary artery with unstable angina pectoris (principal); E11.65 Type 2 diabetes mellitus with hyperglycemia; Z79.4 Long term (current) use of insulin; E78.5 Hyperlipidemia, unspecified; G47.33 Obstructive sleep apnea (adult) (pediatric); T14.8XXA Other injury of unspecified body region, initial encounter; E03.9 Hypothyroidism, unspecified; I25.2 Old myocardial infarction; I11.0 Hypertensive heart disease with heart failure; I50.9 Heart failure, unspecified; E11.42 Type 2 diabetes mellitus with diabetic polyneuropathy; E66.01 Morbid (severe) obesity due to excess calories; Z68.39 Body mass index [BMI] 39.0-39.9, adult; Z79.899 Other long term (current) drug therapy
CPT/HCPCS: 36415; 36416; 71045; 80053; 80061; 82746; 82962; 83540; 83550; 83735; 84100; 84439; 84443; 84481; 84484; 85025; 87426; 93005; 93926; 94664; 96365; 96372; 96375; 96376; 99285; G0378; J0612; J1644; J1650; J1815; J2270; J7030

== ENCOUNTER → 2024-01-22 09:47 | Outpatient (BNVA) | payer OTHER, MEDICAID, SELFPAY | PROVIDERS: PCP Internal Medicine; Referring Provider Orthopaedic Surgery; Visit Provider Specialist | DX: M25.562 Pain in left knee (principal); G89.29 Other chronic pain | CPT/HCPCS: 73560; 99214 ==

== ENCOUNTER → 2024-02-08 10:36 | Outpatient (BNVA) | payer OTHER, MEDICAID, SELFPAY | PROVIDERS: PCP Internal Medicine; Visit Provider Internal Medicine Cardiovascular Disease | DX: I25.110 Atherosclerotic heart disease of native coronary artery with unstable angina pectoris (principal); Z86.711 Personal history of pulmonary embolism; Z95.5 Presence of coronary angioplasty implant and graft; E11.9 Type 2 diabetes mellitus without complications; E66.01 Morbid (severe) obesity due to excess calories; G47.30 Sleep apnea, unspecified; Z68.43 Body mass index [BMI] 50.0-59.9, adult; Z79.4 Long term (current) use of insulin | CPT/HCPCS: 99214 ==

== ENCOUNTER 2024-02-28 06:24 | Emergency (ER) | payer OTHER, MEDICAID, SELFPAY ==
[2024-02-28] VITALS (9 sets, daily range): BP systolic 118–148; BP diastolic 57–87; PULSE 69–82; RESP 15–18; TEMP 36.3; O2SAT 95–98; BMI 35.4
--- NOTE | 2024-02-28 06:30 | ECG_ITS ---
[facility] Test Date: 2024-02-28 Pat Name: Watson Bridges Department: Room: Gender: Female Manager Background: : 1960 Requested By: Juana Patel Order Number: [id number] Aleks MD: Denisse Rodriguez M.D. Measurements Intervals [place] Rate: 80 P: 47 IL: 179 QRS: 44 QRSD: 98 T: 128 QT: 373 QTc: 433 Interpretive Statements SINUS RHYTHM NONSPECIFIC ST & T-WAVE ABNORMALITY Compared to ECG 12/20/2023 22:29:48 T-wave abnormality now present Electronically Signed On 02-29-2024 0:16:13 CDT by Denisse Rodriguez M.D. [id number]
--- NOTE | 2024-02-28 06:39 | XRR_ITS ---
PROCEDURE INFORMATION: Exam: XR Chest Exam date and time: 02/28/2024 6:43 AM Age: 63 years old Clinical indication: Pain; Chest pressure; Additional info: Chest pain TECHNIQUE: Imaging protocol: Radiologic exam of the chest. Views: 1 view. COMPARISON: CR XR chest 1V portable [id number] 12/20/2023 1:19 PM FINDINGS: Lungs: Perihilar pulmonary edema, minimal. Low lung volume. Pleural spaces: No pleural effusion. No pneumothorax. Heart/Mediastinum: Stable cardiomegaly. Coronary artery stents noted. Bones/joints: Stable. XR/XR chest 1V portable [id number] IMPRESSION: Cardiomegaly with minimal pulmonary edema, congestive heart failure suspected.
--- NOTE | 2024-02-28 06:40 | W.ED.CHESTPA ---
HPI - Chest Pain General: Chief Complaint: Chest Pain Stated Complaint: CP Time Seen by Provider: 02/28/24 06:37 History of Present Illness: 63-year-old female with a history of obesity, coronary artery disease status post stents on Brilinta, chronic kidney disease, stroke, hypertension, diabetes, PE, obstructive sleep apnea, and CHF who presents emergency room by ambulance from [facility] with chest pain. She says he was having some mild chest pain all day yesterday but this morning it was much worse. Apparently improved some with some nitroglycerin. No fevers. No cough. No altered mental status. No nausea or vomiting. Related Data Home Medications Medication Instructions Recorded Confirmed tamsulosin 0.4 mg capsule 0.4 mg PO BEDTIME@22 01/06/23 02/28/24 calcium carbonate (Tums) 1,000 mg PO DAILY PRN Stomach Upset 01/18/23 02/28/24 cholecalciferol (vitamin D3) 1,250 50,000 unit PO Q7D 01/18/23 02/28/24 mcg (50,000 unit) capsule nitroglycerin 0.4 mg sublingual 0.4 mg sublingual Q5M PRN Chest 01/18/23 02/28/24 tablet (Nitrostat) Pain potassium chloride 10 mEq 10 meq PO DAILY@07 01/18/23 02/28/24 tablet,extended release levothyroxine 25 mcg capsule 25 mcg PO QAM 05/08/23 02/28/24 sertraline 25 mg tablet (Zoloft) 25 mg PO BEDTIME 05/08/23 02/28/24 hydrocodone 10 mg-acetaminophen 1 tab PO Q6H PRN Pain, Moderate 09/07/23 02/28/24 325 mg tablet ondansetron HCl 4 mg tablet 4 mg PO BID PRN Nausea 09/07/23 02/28/24 pantoprazole 40 mg tablet,delayed 40 mg PO QAM 09/07/23 02/28/24 release semaglutide 0.25 mg or 0.5 mg (2 0.5 mg SUBCUT Q7D 09/07/23 02/28/24 mg/3 mL) subcutaneous pen injector (Ozempic) trazodone 50 mg tablet 50 mg PO BEDTIME 09/07/23 02/28/24 bupropion HCl 200 mg tablet,12 hr 200 mg PO BID 09/14/23 02/28/24 sustained-release insulin lispro 100 unit/mL 29 sliding scale dose SUBCUT TID 09/14/23 02/28/24 subcutaneous pen (Humalog KwikPen (U-100) Insulin) acetaminophen 650 mg 1,300 mg PO Q8H PRN Pain 11/14/23 02/28/24 tablet,extended release magnesium hydroxide 400 mg/5 mL 30 ml PO DAILY PRN Constipation 11/14/23 02/28/24 oral suspension (Milk of Magnesia) metoprolol succinate 50 mg 75 mg PO QAM 12/20/23 02/28/24 tablet,extended release 24 hr atorvastatin 40 mg tablet 40 mg PO BEDTIME 02/28/24 02/28/24 furosemide 10 mg/mL injection 40 mg IM DAILY PRN Edema 02/28/24 02/28/24 solution insulin glargine 100 unit/mL (3 32 unit SUBCUT QAM 02/28/24 02/28/24 mL) subcutaneous pen (Lantus Solostar U-100 Insulin) isosorbide mononitrate 60 mg 60 mg PO DAILY 02/28/24 02/28/24 tablet,extended release 24 hr triamterene 37.5 2 tab PO DAILY 02/28/24 02/28/24 mg-hydrochlorothiazide 25 mg tablet Previous Rx's Medication Instructions Recorded walker with seat and brakes #1 03/26/20 insulin admin supplies (InPen (for #150 ea 10/04/21 Humalog) subcutaneous) diabetic shoes and inserts #1 ea 05/11/22 insulin syringe-needle U-100 1/2 #100 ea 09/23/22 mL 31 gauge x 15/64 (BD Veo Insulin Syringe Ultra-Fine) lancets 33 gauge (BD Ultra Fine #100 ea 09/23/22 Lancets) blood sugar diagnostic (Accu-Chek #100 ea 12/09/22 Guide test strips) ASO to RIGHT #1 ea 01/20/23 wheel-chair with foot rest #1 ea 01/20/23 oxygen tubing #1 ea 01/24/23 ropinirole 0.5 mg tablet 0.5 mg PO BEDTIME@22 #30 tabs 01/24/23 Incontinence Supplies #1 ea 01/27/23 aspirin 81 mg tablet,delayed 81 mg PO DAILY@07 #60 tabs 11/23/23 release ticagrelor 90 mg tablet (Brilinta) 90 mg PO BID@07,22 #120 tabs 11/23/23 furosemide 20 mg tablet 20 mg PO DAILY #30 tabs 11/29/23 ranolazine 500 mg tablet,extended 500 mg PO BID #60 tabs 12/22/23 release,12 hr Allergies Allergy/AdvReac Type Severity Reaction Status Date / Time hyoscyamine Allergy Severe ADR-Itching Verified 02/28/24 06:31 ciprofloxacin [From Cipro] Allergy hives Verified 02/28/24 06:31 citalopram Allergy effects Verified 02/28/24 06:31 speach and memory clopidogrel [From Plavix] Allergy unk Verified 02/28/24 06:31 coconut Allergy Unknown Verified 02/28/24 06:31 ibuprofen Allergy RASH/ Verified 02/28/24 06:31 SWELLING famotidine AdvReac Mild itching Verified 02/28/24 06:31 esomeprazole [From Nexium] AdvReac Unknown Verified 02/28/24 06:31 cefdinir Allergy unknown Uncoded 02/28/24 06:31 Review of Systems Narrative: Constitutional symptoms: Negative except as documented in HPI. Skin symptoms: Negative except as documented in HPI. Eye symptoms: Negative except as documented in HPI. ENMT symptoms: Negative except as documented in HPI. Respiratory symptoms: Negative except as documented in HPI. Cardiovascular symptoms: Negative except as documented in HPI. Gastrointestinal symptoms: Negative except as documented in HPI. Genitourinary symptoms: Negative except as documented in HPI. Musculoskeletal symptoms: Negative except as documented in HPI. Neurologic symptoms: Negative except as documented in HPI. Psychiatric symptoms: Negative except as documented in HPI. Endocrine symptoms: Negative except as documented in HPI. PFSH ED PFSH: Medical History Status post left heart catheterization (LHC) Groin hematoma Left ACL tear Fracture of fifth toe, left, closed Derangement of lateral meniscus of right knee Derangement of medial meniscus of right knee Chronic kidney disease (CKD) Lumbar stenosis with neurogenic claudication Inability to walk Renal failure Chronic cystitis with hematuria Inability to urinate CAD (coronary artery disease) Atherosclerotic heart disease of [place] coronary artery with other forms of angina pectoris Non-ST elevation ND (NSTEMI) Lower extremity weakness Acute kidney injury Elevated troponin CHF (congestive heart failure) Depression with anxiety Coronary artery disease due to type 2 diabetes mellitus Morbid obesity Generalized muscle weakness Type 2 diabetes mellitus with diabetic polyneuropathy Chest pain Diabetes mellitus Small bowel strangulation Dyslipidemia Chronic cystitis Gross hematuria Osteoporosis Morbid obesity Constipation Migraine headache Bilateral lower extremity edema RLS (restless legs syndrome) GERD (gastroesophageal reflux disease) BETH (obstructive sleep apnea) CVA (cerebral vascular accident) HTN (hypertension) DM type 2 (diabetes mellitus, type 2) Pulmonary embolism, bilateral Opioid contract exists Long-term use of high-risk medication Chronic low back pain Surgical History Status post lumbar laminectomy H/O heart artery stent S/P hysterectomy S/P tonsillectomy and adenoidectomy S/P appendectomy S/P cholecystectomy Hx of total knee replacement History of partial surgical removal of colon Family History Grandfather Cancer Family/Other Myocardial infarct MOTHER, FATHER, BROTHER, SISTER Hypertension Diabetes Mother , at age 66 CAD (coronary artery disease) Father , at age 74 CAD (coronary artery disease) Sister CAD (coronary artery disease) Brother CAD (coronary artery disease) Other Stroke Denies family history of Anesthesia complication Bleeding disorder Social History Smoking and tobacco/nicotine status: never used tobacco/nicotine Alcohol intake: never Substance/Drug Use: current Substance/Drug use frequency: other Other substance/drug use details: smokes medical 7-bitesjauna occasionally at night to help her sleep Lives independently: Yes Marital status: Current occupational status: disabled Current gender identity: Female Special vik needs: No Physical Exam Narrative: EXAM NARRATIVE: General: Alert, no acute distress. Skin: Warm, dry. Head: Normocephalic, atraumatic. Neck: Supple, trachea midline. Eye: Extraocular movements are intact. Ears, nose, mouth and throat: mucosa moist. Cardiovascular: Regular, Normal peripheral perfusion. Respiratory: Lungs are clear to auscultation, respirations are non-labored, breath sounds are equal, Symmetrical chest wall expansion. Gastrointestinal: Soft, Nontender, Non distended Musculoskeletal: Normal ROM, no deformity. Neurological: Alert and oriented, No focal neurological deficit observed. Psychiatric: Cooperative, appropriate mood & affect. Course Vital Signs: Vital signs: Vital Signs Temperature 97.4 F L 02/28/24 06:25 Pulse Rate 73 02/28/24 10:15 Respiratory Rate 17 02/28/24 10:15 Blood Pressure 126/66 02/28/24 10:15 Pulse Oximetry 97 02/28/24 10:15 Oxygen Delivery Me thod Room Air 02/28/24 10:15 Oxygen Flow Rate 2 02/28/24 06:40 MDM - Chest Pain Medical Decision Making Differential diagnosis for patient with chest pain includes but is not limited to and based on the above HPI, review of systems and physical exam: Pneumonia. unstable angina. angina. Acute coronary syndrome / ND. Pulmonary embolism. Costochondritis / musculoskeletal. Pleurisy. Pericarditis. Esophageal spasm. Pancreatis. Cholecystitis. Orders placed to evaluate differential diagnosis based on the above differential, HPI and physical exam EKG: Time 6:30 AM. Rate 80. Normal sinus rhythm, No ST-T changes, no ectopy, normal LA & QRS intervals, This was reviewed and interpreted by myself the ER physician at 6:35 AM. Repeat EKG: Time 8:58 AM. Rate 72. Normal sinus rhythm, No ST-T changes, no ectopy, normal LA & QRS intervals, This was reviewed and interpreted by myself the ER physician at 9:02 AM. No significant changes from previous. Lab Review: Laboratory results were reviewed and interpreted by myself the emergency room physician. White count is 10. Hemoglobin is 11. BUN and creatinine are 42 and 1.7 which is at or slightly above her baseline. Chest x-ray: Cardiomegaly with some concern for early heart failure. No pneumothorax. This was reviewed and interpreted by myself the ER physician. I reviewed the patient's medical record. Reexamination: Patient remained stable. No increased work of breathing. No altered mental status. No focal motor deficits. Assessment and plan: Chest pain, noncardiac Congestive heart failure ?Serial troponins and EKGs show no ischemic changes. Does have some signs of early heart failure so from Lasix is being given IV. - Discharged home - Discussed findings and plan with patient. Answered any questions. - All laboratory values were reviewed and interpreted personally by myself, the ER physician - All imaging was reviewed and interpreted personally by myself, the ER physician. - Evaluation and treatment of this problem were appropriate in the emergency setting Lab Data 02/28/24 06:34 02/28/24 06:34 Radiology Impressions Chest X-Ray 02/28/24 06:39 IMPRESSION: Cardiomegaly with minimal pulmonary edema, congestive heart failure suspected. Laboratory Results WBC 10.73 10^3/uL (3.29-11.43) 02/28/24 06:34 RBC 3.95 10^6/uL (3.85-5.65) 02/28/24 06:34 Hgb 11.10 g/dL (11.27-16.99) L 02/28/24 06:34 Hct 34.6 % (36-47) L 02/28/24 06:34 MCV 87.6 fl (85-98) 02/28/24 06:34 MCH 28.1 pg (27-33) 02/28/24 06:34 MCHC 32.1 g/dL (30-55) 02/28/24 06:34 RDW 13.4 % (12.1-15.1) 02/28/24 06:34 Plt Count 353 10^3/cmm (157-399) 02/28/24 06:34 MPV 9.3 fL (7.4-10.4) 02/28/24 06:34 Neut % (Auto) 53.7 % 02/28/24 06:34 Lymph % (Auto) 33.2 % 02/28/24 06:34 [place] % (Auto) 6.7 % 02/28/24 06:34 Eos % (Auto) 5.8 % 02/28/24 06:34 Baso % (Auto) 0.4 % 02/28/24 06:34 Neut # (Auto) 5.77 10^3/uL (1.8-7.7) 02/28/24 06:34 Lymph # (Auto) 3.6 10^3/uL (0.8-4.8) 02/28/24 06:34 [place] # (Auto) 0.7 10^3/uL (0.2-0.9) 02/28/24 06:34 Eos # (Auto) 0.6 10^3/uL (0.0-0.8) 02/28/24 06:34 Baso # (Auto) 0.0 10^3/uL (0.0-0.1) 02/28/24 06:34 Nucleated RBC % (auto) 0 % 02/28/24 06:34 Nucleated RBCs # 0.0 /100WBC 02/28/24 06:34 Sodium 137 mmol/L (136-145) 02/28/24 06:34 Potassium 4.5 mmol/L (3.5-5.1) 02/28/24 06:34 Chloride 100 mmol/L (98-107) 02/28/24 06:34 Carbon Dioxide 26 mmol/L (22-29) 02/28/24 06:34 Anion Gap 15.5 (5-19) 02/28/24 06:34 BUN 42 mg/dL (8-23) H 02/28/24 06:34 Creatinine 1.7 mg/dL (0.5-0.9) H 02/28/24 06:34 GFR Calculation 30.6 mL/min (90-130) L 02/28/24 06:34 Glucose 175 mg/dL (65-115) H 02/28/24 06:34 Calculated Osmolality 299 mOsm/kg (285-295) H 02/28/24 06:34 Calcium 9.1 mg/dL (8.5-10.5) 02/28/24 06:34 Total Bilirubin 0.3 mg/dL (0.15-1.2) 02/28/24 06:34 AST 10 U/L (0-32) 02/28/24 06:34 ALT 9 U/L (0-33) 02/28/24 06:34 Alkaline Phosphatase 110 U/L (35-105) H 02/28/24 06:34 Troponin T Baseline 96 ng/L (0-10) H 02/28/24 06:34 Troponin T 120 Minute 99.50 ng/L (0-10) H 02/28/24 09:22 Delta Troponin T 3.50 ABS# (0-10) 02/28/24 09:22 Total Protein 6.5 g/dL (6.6-8.7) L 02/28/24 06:34 Albumin 3.6 g/dL (3.5-5.2) 02/28/24 06:34 Globulin 2.9 g/dL (1.3-4.6) 02/28/24 06:34 All radiology interpretation(s) finalized by discharge Discharge Plan Discharge Patient Disposition: Home Clinical Impression: Non-cardiac chest pain Condition: Stable Prescriptions: No Action (DME) walker with seat and brakes See Rx Instructions .Route .MEDSUPPLY Qty: 1 0RF Rx Instructions: As directed (DME) InPen (for Humalog) Insulin Pen See Rx Instructions .Route Qty: 150 0RF Rx Instructions: qid to inject insulin (DME) diabetic shoes and inserts See Rx Instructions .Route .MEDSUPPLY Qty: 1 0RF Rx Instructions: As directed (DME) lancets [BD Ultra Fine Lancets] 33 gauge misc See Rx Instructions .Route Qty: 100 1RF Rx Instructions: As directed (DME) insulin syringe-needle U-100 [BD Veo Insulin Syringe UF] 1/2 mL 31 gauge x 15/64 syringe See Rx Instructions .ROUTE .MEDSUPPLY Qty: 100 2RF Rx Instructions: As directed pantoprazole 40 mg tablet,delayed release (DR/EC) 40 mg PO QAM ondansetron HCl 4 mg tablet 4 mg PO BID PRN (Reason: Nausea) hydrocodone-acetaminophen 10-325 mg tablet 1 tab PO Q6H PRN (Reason: Pain, Moderate) Ozempic 0.25 mg or 0.5 mg (2 mg/3 mL) pen injector 0.5 mg SUBCUT Q7D tamsulosin 0.4 mg capsule 0.4 mg PO BEDTIME@22 ropinirole 0.5 mg tablet 0.5 mg PO BEDTIME@22 Qty: 30 2RF (DME) oxygen tubing See Rx Instructions .Route .MEDSUPPLY Qty: 1 0RF [facility] Inst[facility]: [facility] ASO to RIGHT See Rx Instructions .Route .MEDSUPPLY Qty: 1 0RF Rx Instructions: As directed (DME) wheel-chair with foot rest See Rx Instructions .Route .MEDSUPPLY Qty: 1 0RF Rx Instructions: As directed by HOME levothyroxine 25 mcg capsule 25 mcg PO QAM sertraline [Zoloft] 25 mg tablet 25 mg PO BEDTIME trazodone 50 mg tablet 50 mg PO BEDTIME (DME) Accu-Chek Guide test strips Strip See Rx Instructions .Route Qty: 100 5RF Rx Instructions: As directed; to test 5 x daily (DME) Incontinence Supplies See Rx Instructions .Route .MEDSUPPLY Qty: 1 0RF Rx Instructions: As directed furosemide 20 mg tablet 20 mg PO DAILY Qty: 30 5RF calcium carbonate [Tums] 200 mg calcium (500 mg) Tablet,Chewable 1,000 mg PO DAILY PRN (Reason: Stomach Upset) nitroglycerin [Nitrostat] 0.4 mg Tablet, Sublingual 0.4 mg SUBLINGUAL Q5M PRN (Reason: Chest Pain) Rx Instructions: do not exceed 3 doses per episode potassium chloride 10 mEq tablet extended release 10 meq PO DAILY@07 cholecalciferol (vitamin D3) 1,250 mcg (50,000 unit) capsule 50,000 unit PO Q7D Rx Instructions: Takes on Fridays bupropion HCl 200 mg tablet sustained-release 12 hr 200 mg PO BID insulin lispro [Humalog KwikPen Insulin] 100 unit/mL insulin pen 29 sliding scale dose SUBCUT TID metoprolol succinate 50 mg tablet extended release 24 hr 75 mg PO QAM ranolazine 500 mg Tablet Extended Release 12 Hr 500 mg PO BID Qty: 60 0RF furosemide 10 mg/mL Solution 40 mg IM DAILY PRN (Reason: Edema) isosorbide mononitrate 60 mg tablet extended release 24 hr 60 mg PO DAILY triamterene-hydrochlorothiazid 37.5-25 mg tablet 2 tab PO DAILY atorvastatin 40 mg tablet 40 mg PO BEDTIME Lantus Solostar U-100 Insulin 100 unit/mL (3 mL) insulin pen 32 unit SUBCUT QAM acetaminophen 650 mg Tablet Extended Release 1,300 mg PO Q8H PRN (Reason: Pain) magnesium hydroxide [Milk of Magnesia] 400 mg/5 mL Suspension 30 ml PO DAILY PRN (Reason: Constipation) aspirin 81 mg Tablet,Delayed Release (Dr/Ec) 81 mg PO DAILY@07 Qty: 60 0RF Brilinta 90 mg tablet 90 mg PO BID@ Qty: 120 0RF Discharge Orders: Discharge ED (Routine); Ordered 02/28/24 Ordered By: Juana Ackerman Referrals: Niko Jerez MD [Primary Care Provider] - Discharge Diet: Usual diet Discharge Activity: Increase activity as tolerated Patient Instructions: Noncardiac Chest Pain (ED) Activity Restrictions/Additional Instructions: Thank you for choosing [facility] for your healthcare needs today. Please realize this is an emergency room and that we are providing you with a medical screening exam and this may not be complete and all inclusive of all the testing and or work up that you may need to determine your ailment or severity of your illness. You have been screened and evaluated and felt safe for discharge. Health conditions do change or evolve sometimes and as such it is important that you follow up with your Primary Doctor to be re checked, 3-5 days is a general good time frame for follow up. You are always welcome to return to the ED for re assessment if your symptoms are worsening or you have new concerns Coding Level of Care Code ED Section Leader Screen Printing for Romie Everett
--- NOTE | 2024-02-28 06:41 | PC.NURSE ---
pt requested 2L NC which is what she uses while resting
[2024-02-28 06:54] LABS: Basophils % 0.4 %; Eosinophils # 0.6 10^3/uL (0.0-0.8); Eosinophils % 5.8 %; Hematocrit 34.6 % (36-47); Lymphocytes # 3.6 10^3/uL (0.8-4.8); Lymphocytes % 33.2 %; Mean Corpuscular HGB Conc 32.1 g/dL (30-55); Mean Corpuscular Hemoglobin 28.1 pg (27-33); Mean Corpuscular Volume 87.6 fl (85-98); Mean Platelet Volume 9.3 fL (7.4-10.4); Monocytes # 0.7 10^3/uL (0.2-0.9); Monocytes % 6.7 %; Neutrophils # 5.77 10^3/uL (1.8-7.7); Neutrophils % 53.7 %; Nucleated Red Blood Cells % 0 %; Platelet Count 353 10^3/cmm (157-399); Red Blood Count 3.95 10^6/uL (3.85-5.65); Red Cell Distribution Width 13.4 % (12.1-15.1); White Blood Count 10.73 10^3/uL (3.29-11.43)
[2024-02-28 07:01] LABS: Alanine Aminotransferase 9 U/L (0-33); Albumin Level 3.6 g/dL (3.5-5.2); Alkaline Phosphatase 110 U/L (35-105); Anion Gap 15.5 (5-19); Aspartate Amino Transferase 10 U/L (0-32); Blood Urea Nitrogen 42 mg/dL (8-23); Calcium 9.1 mg/dL (8.5-10.5); Carbon Dioxide 26 mmol/L (22-29); Chloride 100 mmol/L (98-107); Creatinine Clr Calc Pharmacy 37.1559; Globulin 2.9 g/dL (1.3-4.6); Glomerular Filtration Rate 30.6 mL/min (90-130); Glucose 175 mg/dL (65-115); Osmolality Calculated 299 mOsm/kg (285-295); Potassium 4.5 mmol/L (3.5-5.1); Sodium 137 mmol/L (136-145); Total Bilirubin 0.3 mg/dL (0.15-1.2); Total Protein 6.5 g/dL (6.6-8.7); Troponin(5th) Baseline 96 ng/L (0-10)
--- NOTE | 2024-02-28 08:39 | ECG_ITS ---
[facility] Test Date: 2024-02-28 Pat Name: Watson Bridges Department: Room: Gender: Female Exerciser: : 1960 Requested By: Juana Patel Order Number: [id number] Aleks MD: Denisse Rodriguez M.D. Measurements Intervals [place] Rate: 72 P: 60 NE: 180 QRS: 64 QRSD: 109 T: 85 QT: 404 QTc: 444 Interpretive Statements SINUS RHYTHM Compared to ECG 02/28/2024 06:30:49 T-wave abnormality no longer present Electronically Signed On 02-29-2024 0:21:56 CDT by Denisse Rodriguez M.D. [id number]
[2024-02-28] MEDS: morphine 4 mg/mL SDV 1 mL 2 MG IVP (10:14)
[2024-02-28] MEDS: ondansetron 2 mg/ML SDV 2 mL 4 MG IVP (10:14)
[2024-02-28] MEDS: FUROsemide 10 mg/mL SDV 4mL 40 MG IVP (10:15)
--- NOTE | 2024-02-28 10:55 | PC.NURSE ---
assessed if pt needing to urinate, pt denies.
== END 2024-02-28 15:20 | disposition home or self-care (01) ==
PROVIDERS: Emergency Provider Emergency Medicine; PCP Internal Medicine
DX: R07.89 Other chest pain (principal); Z79.85 Long-term (current) use of injectable non-insulin antidiabetic drugs; Z79.82 Long term (current) use of aspirin; Z79.4 Long term (current) use of insulin; I13.0 Hypertensive heart and chronic kidney disease with heart failure and stage 1 through stage 4 chronic kidney disease, or unspecified chronic kidney disease; E11.22 Type 2 diabetes mellitus with diabetic chronic kidney disease; N18.9 Chronic kidney disease, unspecified; I50.9 Heart failure, unspecified; I25.10 Atherosclerotic heart disease of native coronary artery without angina pectoris; I25.2 Old myocardial infarction; Z86.73 Personal history of transient ischemic attack (TIA), and cerebral infarction without residual deficits
CPT/HCPCS: 36415; 71045; 80053; 84484; 85025; 93005; 96374; 96375; 99285; J1940; J2270; J2405

== ENCOUNTER 2024-02-29 07:52 | Outpatient (CLI) | payer OTHER, MEDICAID, SELFPAY ==
--- NOTE | 2024-02-29 08:00 | MR_ITS ---
WS: [id number] MRI CERVICAL SPINE NONCONTRAST TECHNIQUE: Sagittal T1, T2 and STIR imaging. Axial T2, gradient, and fiesta imaging. CLINICAL INFORMATION: neck pain COMPARISON: None. FINDINGS: Images degraded due to patient motion. Mild cervical curve. Moderate spondylitic changes. Small disc osteophyte protrusions worse at C5-6 si milar to previous with indentation of the cervical cord. Moderate to severe central canal stenosis at this level similar to previous. Cord signal not well evaluated due to motion artifact. C2-C3: Moderate facet arthropathy. Spinal canal and foramen are patent. C3-C4: Disc osteophyte complex with mild bilateral foraminal narrowing. Mild central canal stenosis. Mild facet arthropathy. C4-C5: Disc osteophyte complex with mild central canal stenosis. Mild facet arthropathy. Mild bilater al foraminal narrowing. C5-C6: Central disc osteophyte protrusion with indentation and flattening of the cervical cord. Moder ate to severe central canal stenosis. Moderate bilateral bony foraminal narrowing. C6-C7: Disc osteophyte protrusion with moderate central canal stenosis. Severe LEFT greater than RIGH T bony foraminal narrowing. Uncovertebral joint hypertrophy. C7-T1: Moderate LEFT and mild RIGHT bony foraminal narrowing. Visualized brain stem structures: Normal. Prevertebral soft tissues: Normal. MR/MR cervical spin wo con* [id number] IMPRESSION: Limited examination due to significant motion artifact. Cord signal cannot be evaluated. 1. Central disc osteophyte protrusion C5-C6 with moderate to severe central ca nal stenosis similar to previous. Indentation and flattening of the cervical co rd. Central canal at this level measures approximately 6 mm. 2. Mild central canal stenosis C3-C4 and C4-C5. Moderate central canal stenosi s C6-7. 3. Moderate to severe bony foraminal narrowing worse at bilateral C5-6 and semaj ateral C6-7. 4. Overall no significant change compared to previous.
== END 2024-02-29 07:53 | disposition home or self-care (01) ==
LOC: RAD 07:53
PROVIDERS: PCP Internal Medicine; Visit Provider Orthopaedic Surgery
DX: M47.892 Other spondylosis, cervical region (principal); M25.78 Osteophyte, vertebrae; M48.02 Spinal stenosis, cervical region; M99.61 Osseous and subluxation stenosis of intervertebral foramina of cervical region
CPT/HCPCS: 72141

== ENCOUNTER 2024-03-07 10:36 | Outpatient (CLI) | payer OTHER, MEDICAID, SELFPAY ==
--- NOTE | 2024-03-07 10:42 | MM_ITS ---
WS: [id number] VIEWS: MLO and CC views both breasts. 3D digital tomosynthesis is also included in this exam. Comparison made with prior exam of 07/27/2010, 07/21/2016, 10/25/2017, 07/24/2020, 10/24/2022.. Findings: There was no sign of mass, architectural distortion or suspicious calcification in either breast. The re are scattered areas of fibroglandular density and benign-appearing calcifications. MM/[place] [id number] Impression: BI-RADS: 2-Benign finding. FOLLOW-UP: 1 Year Follow-up This mammogram was also analyzed by the Computer [employer] [facility] [place] Nurse.
== END 2024-03-07 10:37 | disposition home or self-care (01) ==
LOC: RAD 10:37
PROVIDERS: PCP Internal Medicine; Visit Provider Internal Medicine
DX: Z12.31 Encounter for screening mammogram for malignant neoplasm of breast (principal); R92.323 Mammographic fibroglandular density, bilateral breasts; R92.1 Mammographic calcification found on diagnostic imaging of breast
CPT/HCPCS: 77063; 77067

== ENCOUNTER 2024-03-22 07:32 | Observation (INO) | payer OTHER, MEDICAID, SELFPAY ==
[2024-03-22] VITALS (11 sets, daily range): BP systolic 116–153; BP diastolic 58–78; PULSE 74–90; RESP 12–27; TEMP 36.7–36.9; O2SAT 95–100; BMI 38.9
--- NOTE | 2024-03-22 07:32 | ECG_ITS ---
[facility] Test Date: 2024-03-22 Pat Name: Watson Bridges Department: Room: Gender: Female Care Taker: : 1960 Requested By: James Patel Order Number: [id number] Alkes MD: Denisse Rodriguez M.D. Measurements Intervals [place] Rate: 88 P: 44 ME: 182 QRS: 40 QRSD: 97 T: 10 QT: 329 QTc: 400 Interpretive Statements SINUS RHYTHM MODERATE T-WAVE ABNORMALITY, CONSIDER INFERIOR ISCHEMIA [-0.1+ mV T-WAVE IN II/aVF] Compared to ECG 02/28/2024 08:58:34 T-wave abnormality now present Possible ischemia now present Electronically Signed On 03-22-2024 16:49:39 CDT by Denisse Rodriguez M.D. [id number] f
--- NOTE | 2024-03-22 07:41 | XR_ITS ---
WS: [id number] XR chest 1V portable [id number] REASON FOR EXAM: dyspnea/cough FINDINGS: Cardiomegaly with extensive coronary artery stents. Central venous congestion. No pulmonary edema or infiltrate identified. The chest is relatively unchanged compared to 02/28/2024. XR/XR chest 1V portable [id number] IMPRESSION: Stable abnormal chest with cardiomegaly and central venous congestion.
--- NOTE | 2024-03-22 07:42 | W.ED.CHESTPA ---
HPI - Chest Pain General: Chief Complaint: Chest Pain Stated Complaint: sob/cp Time Seen by Provider: 03/22/24 07:34 History of Present Illness: 63-year-old female with known multivessel coronary artery disease presents emergency room with chest pain that began yesterday. Earlier this year patient had stents placed in November with 2 angiograms within a week. Complaining chest pain began yesterday was relieved by nitro today. She does have a little bit of right sided lower rib pain that is reproducible with palpation and with deep inspiration that is persistent even after the nitroglycerin. Some radiation of pain into her back and shoulders. No productive cough. Associated symptoms: Reports dyspnea; Deny abdominal pain or fever(s) Related Data Home Medications Medication Instructions Recorded Confirmed tamsulosin 0.4 mg capsule 0.4 mg PO BEDTIME@22 01/06/23 02/28/24 calcium carbonate (Tums) 1,000 mg PO DAILY PRN Stomach Upset 01/18/23 02/28/24 cholecalciferol (vitamin D3) 1,250 50,000 unit PO Q7D 01/18/23 02/28/24 mcg (50,000 unit) capsule nitroglycerin 0.4 mg sublingual 0.4 mg sublingual Q5M PRN Chest 01/18/23 02/28/24 tablet (Nitrostat) Pain potassium chloride 10 mEq 10 meq PO DAILY@07 01/18/23 02/28/24 tablet,extended release levothyroxine 25 mcg capsule 25 mcg PO QAM 05/08/23 02/28/24 sertraline 25 mg tablet (Zoloft) 25 mg PO BEDTIME 05/08/23 02/28/24 hydrocodone 10 mg-acetaminophen 1 tab PO Q6H PRN Pain, Moderate 09/07/23 02/28/24 325 mg tablet ondansetron HCl 4 mg tablet 4 mg PO BID PRN Nausea 09/07/23 02/28/24 pantoprazole 40 mg tablet,delayed 40 mg PO QAM 09/07/23 02/28/24 release semaglutide 0.25 mg or 0.5 mg (2 0.5 mg SUBCUT Q7D 09/07/23 02/28/24 mg/3 mL) subcutaneous pen injector (Ozempic) trazodone 50 mg tablet 50 mg PO BEDTIME 09/07/23 02/28/24 bupropion HCl 200 mg tablet,12 hr 200 mg PO BID 09/14/23 02/28/24 sustained-release insulin lispro 100 unit/mL 29 sliding scale dose SUBCUT TID 09/14/23 02/28/24 subcutaneous pen (Humalog KwikPen (U-100) Insulin) acetaminophen 650 mg 1,300 mg PO Q8H PRN Pain 11/14/23 02/28/24 tablet,extended release magnesium hydroxide 400 mg/5 mL 30 ml PO DAILY PRN Constipation 11/14/23 02/28/24 oral suspension (Milk of Magnesia) metoprolol succinate 50 mg 75 mg PO QAM 12/20/23 02/28/24 tablet,extended release 24 hr atorvastatin 40 mg tablet 40 mg PO BEDTIME 02/28/24 02/28/24 furosemide 10 mg/mL injection 40 mg IM DAILY PRN Edema 02/28/24 02/28/24 solution insulin glargine 100 unit/mL (3 32 unit SUBCUT QAM 02/28/24 02/28/24 mL) subcutaneous pen (Lantus Solostar U-100 Insulin) isosorbide mononitrate 60 mg 60 mg PO DAILY 02/28/24 02/28/24 tablet,extended release 24 hr triamterene 37.5 2 tab PO DAILY 02/28/24 02/28/24 mg-hydrochlorothiazide 25 mg tablet Previous Rx's Medication Instructions Recorded walker with seat and brakes #1 03/26/20 insulin admin supplies (InPen (for #150 10/04/21 Humalog) subcutaneous) diabetic shoes and inserts #1 ea 05/11/22 insulin syringe-needle U-100 1/2 #100 ea 09/23/22 mL 31 gauge x 15/64 (BD Veo Insulin Syringe Ultra-Fine) lancets 33 gauge (BD Ultra Fine #100 ea 09/23/22 Lancets) blood sugar diagnostic (Accu-Chek #100 ea 12/09/22 Guide test strips) ASO to RIGHT #1 ea 01/20/23 wheel-chair with foot rest #1 ea 01/20/23 oxygen tubing #1 ea 01/24/23 ropinirole 0.5 mg tablet 0.5 mg PO BEDTIME@22 #30 tabs 01/24/23 Incontinence Supplies #1 ea 01/27/23 aspirin 81 mg tablet,delayed 81 mg PO DAILY@07 #60 tabs 11/23/23 release ticagrelor 90 mg tablet (Brilinta) 90 mg PO BID@07,22 #120 tabs 11/23/23 furosemide 20 mg tablet 20 mg PO DAILY #30 tabs 11/29/23 ranolazine 500 mg tablet,extended 500 mg PO BID #60 tabs 12/22/23 release,12 hr Allergies Allergy/AdvReac Type Severity Reaction Status Date / Time hyoscyamine Allergy Severe ADR-Itching Verified 02/28/24 06:31 ciprofloxacin [From Cipro] Allergy hives Verified 02/28/24 06:31 citalopram Allergy effects Verified 02/28/24 06:31 speach and memory clopidogrel [From Plavix] Allergy unk Verified 02/28/24 06:31 coconut Allergy Unknown Verified 02/28/24 06:31 ibuprofen Allergy RASH/ Verified 02/28/24 06:31 SWELLING famotidine AdvReac Mild itching Verified 02/28/24 06:31 esomeprazole [From Nexium] AdvReac Unknown Verified 02/28/24 06:31 cefdinir Allergy unknown Uncoded 02/28/24 06:31 Review of Systems Const: Denies: fever(s) or chills Card: Reports: chest pain Resp: Reports: dyspnea; Denies: productive cough, wheezing or chest congestion GI: Denies: abdominal pain : Denies: dysuria, urinary frequency or urinary urgency Musc: Denies: neck pain or back pain Skin/Breast: Denies: rash PFSH ED PFSH: Medical History Status post left heart catheterization (LHC) Groin hematoma Left ACL tear Fracture of fifth toe, left, closed Derangement of lateral meniscus of right knee Derangement of medial meniscus of right knee Chronic kidney disease (CKD) Lumbar stenosis with neurogenic claudication Inability to walk Renal failure Chronic cystitis with hematuria Inability to urinate CAD (coronary artery disease) Atherosclerotic heart disease of [place] coronary artery with other forms of angina pectoris Non-ST elevation VA (NSTEMI) Lower extremity weakness Acute kidney injury Elevated troponin CHF (congestive heart failure) Depression with anxiety Coronary artery disease due to type 2 diabetes mellitus Morbid obesity Generalized muscle weakness Type 2 diabetes mellitus with diabetic polyneuropathy Chest pain Diabetes mellitus Small bowel strangulation Dyslipidemia Chronic cystitis Gross hematuria Osteoporosis Morbid obesity Constipation Migraine headache Bilateral lower extremity edema RLS (restless legs syndrome) GERD (gastroesophageal reflux disease) BETH (obstructive sleep apnea) CVA (cerebral vascular accident) HTN (hypertension) DM type 2 (diabetes mellitus, type 2) Pulmonary embolism, bilateral Opioid contract exists Long-term use of high-risk medication Chronic low back pain Surgical History Status post lumbar laminectomy H/O heart artery stent S/P hysterectomy S/P tonsillectomy and adenoidectomy S/P appendectomy S/P cholecystectomy Hx of total knee replacement History of partial surgical removal of colon Family History Grandfather Cancer Family/Other Myocardial infarct MOTHER, FATHER, BROTHER, SISTER Hypertension Diabetes Mother , at age 66 CAD (coronary artery disease) Father , at age 74 CAD (coronary artery disease) Sister CAD (coronary artery disease) Brother CAD (coronary artery disease) Other Stroke Denies family history of Anesthesia complication Bleeding disorder Social History Smoking and tobacco/nicotine status: never used tobacco/nicotine Alcohol intake: never Substance/Drug Use: current Substance/Drug use frequency: other Other substance/drug use details: smokes medical marijauna occasionally at night to help her sleep Lives independently: Yes Marital status: Current occupational status: disabled Current gender identity: Female Special vik needs: No Physical Exam Const: GENERAL APPEARANCE: cooperative ORIENTATION/CONSCIOUSNESS: Yes awake, Yes oriented to person, Yes oriented to place and Yes oriented to time HENMT: COMMON NORMALS: normocephalic, atraumatic and hearing grossly normal bilaterally HEAD & SCALP: normocephalic and atraumatic Resp: COMMON NORMALS: normal respiratory effort, No retractions, No use of accessory muscles and clear to auscultation bilaterally AUSCULTATION: clear to auscultation bilaterally Cardio: COMMON NORMALS: regular rate, regular rhythm and No murmurs present (Cardio) RATE: regular rate RHYTHM: regular rhythm GI: COMMON NORMALS: Soft to palpation and No hepatosplenomegaly present AUSCULTATION: Yes normoactive bowel sounds PALPATION: Yes Soft to palpation, No Tenderness to palpation present (GI), No Guarding due to palpation present (GI) and Yes No hepatosplenomegaly present Extremity: COMMON NORMALS: normal to inspection, capillary refill normal, no clubbing, cyanosis or edema, no calf tenderness and no pedal edema Neuro: SENSORIUM/ORIENTATION: Yes oriented to person, Yes oriented to place and Yes oriented to time Skin: COMMON NORMALS: no rashes or lesions noted GENERAL SKIN EXAM: no rashes or lesions noted Course Vital Signs: Vital signs: Vital Signs Temperature 98.1 F 03/22/24 07:34 Pulse Rate 84 03/22/24 11:08 Respiratory Rate 18 03/22/24 10:11 Blood Pressure 134/60 03/22/24 11:08 Pulse Oximetry 98 03/22/24 11:08 Oxygen Delivery Me thod Nasal Cannula 03/22/24 11:44 Oxygen Flow Rate 3 03/22/24 07:34 MDM - Chest Pain Medical Decision Making Chest pain relieved by nitro patient with known coronary artery disease. CBC unremarkable. First Trope elevated at 116 and this will higher than her baseline has been in the past and additionally she has a mild acute kidney injury creatinine 1.8 BUN 55. She has a history of PEs she is not hypoxic or tachycardic. Discussed with hospitalist orders written also contacted cardiology they had consulted. Patient is also complaining of difficulty with speech but she has no further focal neurologic deficits. NIH score of 1 for the reported dysarthria she has weakness bilaterally in her extremities she states that is chronically been that way and is not new. When asked about when the speech started she is at seconds several days as well. Head CT did not show any acute or subacute CVA. Medical Records I reviewed the patient's medical records. Lab Data I reviewed the patient's lab results. 03/22/24 07:49 03/22/24 07:49 Radiology Impressions Chest X-Ray 03/22/24 07:41 IMPRESSION: Stable abnormal chest with cardiomegaly and central venous congestion. Head CT 03/22/24 10:24 IMPRESSION: 1. No definite evidence of intracranial hemorrhage or mass effect 2. Tiny focus of increased attenuation LEFT frontal lobe laterally likely prominent vessel or artifact. This could be followed up later today to confirm stability. 3. Otherwise no acute intracranial findings. Laboratory Results WBC 9.44 10^3/uL (3.29-11.43) 03/22/24 07:49 RBC 4.44 10^6/uL (3.85-5.65) 03/22/24 07:49 Hgb 12.40 g/dL (11.27-16.99) 03/22/24 07:49 Hct 38.9 % (36-47) 03/22/24 07:49 MCV 87.6 fl (85-98) 03/22/24 07:49 MCH 27.9 pg (27-33) 03/22/24 07:49 MCHC 31.9 g/dL (30-55) 03/22/24 07:49 RDW 13.8 % (12.1-15.1) 03/22/24 07:49 Plt Count 310 10^3/cmm (157-399) 03/22/24 07:49 MPV 9.2 fL (7.4-10.4) 03/22/24 07:49 Neut % (Auto) 48.5 % 03/22/24 07:49 Lymph % (Auto) 37.3 % 03/22/24 07:49 Johnson % (Auto) 6.5 % 03/22/24 07:49 Eos % (Auto) 7.0 % 03/22/24 07:49 Baso % (Auto) 0.5 % 03/22/24 07:49 Neut # (Auto) 4.58 10^3/uL (1.8-7.7) 03/22/24 07:49 Lymph # (Auto) 3.5 10^3/uL (0.8-4.8) 03/22/24 07:49 Johnson # (Auto) 0.6 10^3/uL (0.2-0.9) 03/22/24 07:49 Eos # (Auto) 0.7 10^3/uL (0.0-0.8) 03/22/24 07:49 Baso # (Auto) 0.1 10^3/uL (0.0-0.1) 03/22/24 07:49 Nucleated RBC % (auto) 0 % 03/22/24 07:49 Nucleated RBCs # 0.0 /100WBC 03/22/24 07:49 Specimen Type Arterial 03/22/24 07:47 Sample Site Brachial, right 03/22/24 07:47 ABG pH 7.38 (7.35-7.45) 03/22/24 07:47 ABG pCO2 43.1 mmHg (35-45) 03/22/24 07:47 ABG pO2 113.0 mmHg (80.0-100.0) H 03/22/24 07:47 ABG PO2/FiO2 Ratio 353 03/22/24 07:47 ABG HCO3 25.2 mmol/L (22-26) 03/22/24 07:47 ABG O2 Saturation 99.0 03/22/24 07:47 ABG Base Excess -0.2 mmol/L (-2.0-2.0) 03/22/24 07:47 Peter Test N/a 03/22/24 07:47 A-a O2 Gradient 7.7 mmHg (5-10) 03/22/24 07:47 Hematocrit 36.3 % (37-47) L 03/22/24 07:47 Hgb O2 Saturation 97.2 % (95-100) 03/22/24 07:47 Carboxyhemoglobin 0.8 %THgb (0.4-20.1) 03/22/24 07:47 Methemoglobin 1.1 % (0.4-1.5) 03/22/24 07:47 Total Hemoglobin 11.8 g/dL (12-16) L 03/22/24 07:47 Sodium 135.0 mmol/L (131-143) 03/22/24 07:47 Potassium 4.6 mmol/L (3.5-5.0) 03/22/24 07:47 Glucose 292.0 mg/dL (70-115) H 03/22/24 07:47 Ionized Calcium 1.3 mmol/L (1.1-1.4) 03/22/24 07:47 O2 Delivery Device Nc 03/22/24 07:47 O2 Liters/Min 3.0 % 03/22/24 07:47 FiO2 32.0 % 03/22/24 07:47 Loss Prevention Guard ID Amh 03/22/24 07:47 Sodium 138 mmol/L (136-145) 03/22/24 07:49 Potassium 4.7 mmol/L (3.5-5.1) 03/22/24 07:49 Chloride 100 mmol/L (98-107) 03/22/24 07:49 Carbon Dioxide 27 mmol/L (22-29) 03/22/24 07:49 Anion Gap 15.7 (5-19) 03/22/24 07:49 BUN 55 mg/dL (8-23) H 03/22/24 07:49 Creatinine 1.8 mg/dL (0.5-0.9) H 03/22/24 07:49 GFR Calculation 28.6 mL/min (90-130) L 03/22/24 07:49 Glucose 285 mg/dL (65-115) H 03/22/24 07:49 Calculated Osmolality 311 mOsm/kg (285-295) H 03/22/24 07:49 Calcium 9.5 mg/dL (8.5-10.5) 03/22/24 07:49 Total Bilirubin 0.2 mg/dL (0.15-1.2) 03/22/24 07:49 AST 11 U/L (0-32) 03/22/24 07:49 ALT 13 U/L (0-33) 03/22/24 07:49 Alkaline Phosphatase 127 U/L (35-105) H 03/22/24 07:49 Troponin T Baseline 116 ng/L (0-10) H* 03/22/24 07:49 Troponin T 120 Minute 114.6 ng/L (0-10) H 03/22/24 09:43 Delta Troponin T -1.4 ABS# (0-10) L 03/22/24 09:43 Total Protein 7.1 g/dL (6.6-8.7) 03/22/24 07:49 Albumin 3.7 g/dL (3.5-5.2) 03/22/24 07:49 Globulin 3.4 g/dL (1.3-4.6) 03/22/24 07:49 All radiology interpretation(s) finalized by discharge Discharge Plan Discharge Patient Disposition: Admitted As Inpatient Admit Provider: Flo Villarreal Clinical Impression: Unstable angina pectoris, Status post coronary artery stent placement, DM type 2 (diabetes mellitus, type 2), CAD (coronary artery disease) Condition: Stable Coding Level of Care Code ED 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
[2024-03-22 07:56] LABS: Basophils # 0.1 10^3/uL (0.0-0.1); Basophils % 0.5 %; Eosinophils # 0.7 10^3/uL (0.0-0.8); Hematocrit 38.9 % (36-47); Lymphocytes # 3.5 10^3/uL (0.8-4.8); Lymphocytes % 37.3 %; Mean Corpuscular HGB Conc 31.9 g/dL (30-55); Mean Corpuscular Hemoglobin 27.9 pg (27-33); Mean Corpuscular Volume 87.6 fl (85-98); Mean Platelet Volume 9.2 fL (7.4-10.4); Monocytes # 0.6 10^3/uL (0.2-0.9); Monocytes % 6.5 %; Neutrophils # 4.58 10^3/uL (1.8-7.7); Neutrophils % 48.5 %; Nucleated Red Blood Cells % 0 %; Platelet Count 310 10^3/cmm (157-399); Red Blood Count 4.44 10^6/uL (3.85-5.65); Red Cell Distribution Width 13.8 % (12.1-15.1); White Blood Count 9.44 10^3/uL (3.29-11.43)
[2024-03-22 07:58] LABS: ABG PCO2 43.1 mmHg (35-45); ABG PH Result 7.38 (7.35-7.45); Alveolar-Arterial Oxygen Gradi 7.7 mmHg (5-10); Arterial Blood Gas Hematocrit 36.3 % (37-47); Base Excess ABG -0.2 mmol/L (-2.0-2.0); Blood Gas Operator Identificat AMH; Blood Gas Sample Site Brachial, right; Blood Gas Sample Type Arterial; Carboxyhemoglobin 0.8 %THgb (0.4-20.1); HCO3 ABG 25.2 mmol/L (22-26); HGB O2 Sat 97.2 % (95-100); Ionized Calcium Level - ABG 1.3 mmol/L (1.1-1.4); Methemoglobin 1.1 % (0.4-1.5); Oxygen Device NC; PO2 FiO2 Ratio Arterial Blood 353; Potassium Level - ABG 4.6 mmol/L (3.5-5.0); Total Hemoglobin 11.8 g/dL (12-16)
[2024-03-22 08:12] LABS: Alanine Aminotransferase 13 U/L (0-33); Albumin Level 3.7 g/dL (3.5-5.2); Alkaline Phosphatase 127 U/L (35-105); Anion Gap 15.7 (5-19); Aspartate Amino Transferase 11 U/L (0-32); Blood Urea Nitrogen 55 mg/dL (8-23); Calcium 9.5 mg/dL (8.5-10.5); Carbon Dioxide 27 mmol/L (22-29); Chloride 100 mmol/L (98-107); Creatinine Clr Calc Pharmacy 36.9719; Globulin 3.4 g/dL (1.3-4.6); Glomerular Filtration Rate 28.6 mL/min (90-130); Glucose 285 mg/dL (65-115); Osmolality Calculated 311 mOsm/kg (285-295); Potassium 4.7 mmol/L (3.5-5.1); Sodium 138 mmol/L (136-145); Total Bilirubin 0.2 mg/dL (0.15-1.2); Total Protein 7.1 g/dL (6.6-8.7)
[2024-03-22 08:16] LABS: Troponin(5th) Baseline 116 ng/L (0-10)
[2024-03-22] MEDS: nitroglycerin 1 gm/inch oint Pkt 0.5 INCH TOPICAL (08:22)
--- NOTE | 2024-03-22 09:41 | ECG_ITS ---
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 Measurements Intervals [place]ley Rate: 86 P: 45 RI: 185 QRS: 34 QRSD: 101 T: 56 QT: 368 QTc: 441 Interpretive Statements SINUS RHYTHM POSSIBLE ANTERIOR MYOCARDIAL INFARCTION , PROBABLY OLD [30 ms Q WAVE IN V3/V4, OR R < 0.2 mV IN V4] Compared to ECG 03/22/2024 07:32:36 Myocardial infarct finding now present T-wave abnormality no longer present Possible ischemia no longer present Electronically Signed On 03-22-2024 16:54:24 CDT by Denisse Rodriguez M.D. [id number]
[2024-03-22 10:12] LABS: Troponin 5 2HR 114.6 ng/L (0-10); Troponin 5 2HR Delta -1.4 ABS# (0-10)
--- NOTE | 2024-03-22 10:24 | CT_ITS ---
WS: [id number] CT HEAD TECHNIQUE: Noncontrast CT of the head obtained from the skullbase to the vertex. CLINICAL INFORMATION: speech difficulty COMPARISON: CT 02/19/2023 and MRI 10/09/2023 DLP: 959.[address] scans at [facility] use at least one of these dose optimization techniques: automated e xposure control; mA and/or kV adjustment per patient size (includes targeted exams where dose is matc hed to clinical indication); or iterative reconstruction. FINDINGS: No definite evidence of intracranial hemorrhage or mass effect. Ventricular system and basal cisterns are patent. Mild small vessel changes with moderate parenchymal volume loss. No extra-axial fluid co llections. No evidence of mass or mass effect. Normal franco-white differentiation. Tiny focus of incre ased attenuation LEFT frontal lobe laterally likely prominent vessel or artifact. Paranasal sinuses and mastoid air cells are well aerated. .Normal visualized soft tissues. CT/CT head wo con* [id number] IMPRESSION: 1. No definite evidence of intracranial hemorrhage or mass effect 2. Tiny focus of increased attenuation LEFT frontal lobe laterally likely prom inent vessel or artifact. This could be followed up later today to confirm stab ility. 3. Otherwise no acute intracranial findings.
--- NOTE | 2024-03-22 10:48 | PC.NURSE ---
Furosemide delayed d/t pt being in CT
[2024-03-22] MEDS: FUROsemide 10 mg/mL SDV 4mL 40 MG IVP (11:04)
--- NOTE | 2024-03-22 11:07 | PC.NURSE ---
report called to CSU, no further questions.
--- NOTE | 2024-03-22 11:15 | PC.PHAR ---
Addendum entered by Christina Mackenzie 03/22/24 11:24: [facility] list 03/22/24 11:24am Original Note: Pt is from [facility]
--- NOTE | 2024-03-22 12:50 | P.HP_ITS ---
Providers/Chief Complaint 2 Admitting Physician: Flo Villarreal MD Primary Care Provider: Niko Jerez MD Chief Complaint: sob/cp History of Present Illness Watson Bridges is a 63 year old female presenting from a local nursing facility with complaints of chest discomfort. She reports that has been going on for the last 3 days, and comes and goes. She states is worse. She moves or takes of breath. She reports it is in her chest as well as her left shoulder. She believes there are 2 different pains. She believes some of the chest discomfort is from being picked up and moved, during a transfer. She believes that shoulder discomfort is somewhat similar to her cardiac pain, and the nitroglycerin seemed to help this. She states she felt a little short of breath and swollen but she is now better after a dose of Lasix. No vomiting. No blood in stool. No recent illness. Most recent angiogram in November where she had relatively 2 angiograms November 14 and for in-stent stenosis. Review of Systems 2 General: Reports: 10 or more systems reviewed and unremarkable except in HPI and below Card: Reports: chest pain Resp: Reports: dyspnea GI: Denies: hematochezia or melena Medications/Allergies Home Medications Medication Instructions Recorded Confirmed Last Taken Type walker with seat and brakes #1 ea 03/26/20 02/28/24 08/08/20 22:30 Rx insulin admin supplies (InPen (for #150 ea 10/04/21 02/28/24 Unknown Rx Humalog) subcutaneous) diabetic shoes and inserts #1 ea 05/11/22 02/28/24 Unknown Rx insulin syringe-needle U-100 07/11 #100 ea 09/23/22 02/28/24 Unknown Rx mL 31 gauge x 15/64 (BD Veo Insulin Syringe Ultra-Fine) lancets 33 gauge (BD Ultra Fine #100 ea 09/23/22 02/28/24 Unknown Rx Lancets) blood sugar diagnostic (Accu-Chek #100 ea 12/09/22 02/28/24 Unknown Rx Guide test strips) tamsulosin 0.4 mg capsule 0.4 mg PO BEDTIME@22 01/06/23 02/28/24 02/27/24 History calcium carbonate (Tums) 1,000 mg PO DAILY PRN Stomach Upset 01/18/23 02/28/24 09/14/23 History cholecalciferol (vitamin D3) 1,250 50,000 unit PO Q7D 01/18/23 02/28/24 02/24/24 History mcg (50,000 unit) capsule nitroglycerin 0.4 mg sublingual 0.4 mg sublingual Q5M PRN Chest 01/18/23 02/28/24 Unknown History tablet (Nitrostat) Pain potassium chloride 10 mEq 10 meq PO DAILY@07 01/18/23 02/28/24 02/27/24 History tablet,extended release ASO to RIGHT #1 ea 01/20/23 02/28/24 Unknown Rx wheel-chair with foot rest #1 ea 01/20/23 02/28/24 Unknown Rx oxygen tubing #1 ea 01/24/23 02/28/24 Unknown Rx ropinirole 0.5 mg tablet 0.5 mg PO BEDTIME@22 #30 tabs 01/24/23 02/28/24 02/27/24 Rx Incontinence Supplies #1 ea 01/27/23 02/28/24 Unknown Rx levothyroxine 25 mcg capsule 25 mcg PO QAM 05/08/23 02/28/24 02/26/24 History sertraline 25 mg tablet (Zoloft) 25 mg PO BEDTIME 05/08/23 02/28/24 02/27/24 History hydrocodone 10 mg-acetaminophen 1 tab PO Q6H PRN Pain, Moderate 09/07/23 02/28/24 02/27/24 History 325 mg tablet ondansetron HCl 4 mg tablet 4 mg PO BID PRN Nausea 09/07/23 02/28/24 02/24/24 History pantoprazole 40 mg tablet,delayed 40 mg PO QAM 09/07/23 02/28/24 02/26/24 History release semaglutide 0.25 mg or 0.5 mg (2 0.5 mg SUBCUT Q7D 09/07/23 02/28/24 02/23/24 History mg/3 mL) subcutaneous pen injector (Ozempic) trazodone 50 mg tablet 50 mg PO BEDTIME 09/07/23 02/28/24 02/27/24 History bupropion HCl 200 mg tablet,12 hr 200 mg PO BID 09/14/23 02/28/24 02/27/24 History sustained-release insulin lispro 100 unit/mL 29 sliding scale dose SUBCUT TID 09/14/23 02/28/24 02/27/24 History subcutaneous pen (Humalog KwikPen (U-100) Insulin) acetaminophen 650 mg 1,300 mg PO Q8H PRN Pain 11/14/23 02/28/24 02/17/24 History tablet,extended release magnesium hydroxide 400 mg/5 mL 30 ml PO DAILY PRN Constipation 11/14/23 02/28/24 Unknown History oral suspension (Milk of Magnesia) aspirin 81 mg tablet,delayed 81 mg PO DAILY@07 #60 tabs 11/23/23 02/28/24 02/27/24 Rx release ticagrelor 90 mg tablet (Brilinta) 90 mg PO BID@, #120 tabs 11/23/23 02/28/24 02/27/24 Rx furosemide 20 mg tablet 20 mg PO DAILY #30 tabs 11/29/23 02/28/24 02/27/24 Rx metoprolol succinate 50 mg 75 mg PO QAM 12/20/23 02/28/24 02/27/24 History tablet,extended release 24 hr ranolazine 500 mg tablet,extended 500 mg PO BID #60 tabs 12/22/23 02/28/24 02/27/24 Rx release,12 hr atorvastatin 40 mg tablet 40 mg PO BEDTIME 02/28/24 02/28/24 02/27/24 History furosemide 10 mg/mL injection 40 mg IM DAILY PRN Edema 02/28/24 02/28/24 02/21/24 History solution insulin glargine 100 unit/mL (3 32 unit SUBCUT QAM 02/28/24 02/28/24 02/25/24 History mL) subcutaneous pen (Lantus Solostar U-100 Insulin) isosorbide mononitrate 60 mg 60 mg PO DAILY 02/28/24 02/28/24 02/27/24 History tablet,extended release 24 hr triamterene 37.5 2 tab PO DAILY 02/28/24 02/28/24 02/27/24 History mg-hydrochlorothiazide 25 mg tablet Allergies Allergy/AdvReac Type Severity Reaction Status Date / Time hyoscyamine Allergy Severe ADR-Itching Verified 02/28/24 06:31 ciprofloxacin [From Cipro] Allergy hives Verified 02/28/24 06:31 citalopram Allergy effects Verified 02/28/24 06:31 speach and memory clopidogrel [From Plavix] Allergy unk Verified 02/28/24 06:31 coconut Allergy Unknown Verified 02/28/24 06:31 ibuprofen Allergy RASH/ Verified 02/28/24 06:31 SWELLING famotidine AdvReac Mild itching Verified 02/28/24 06:31 esomeprazole [From Nexium] AdvReac Unknown Verified 02/28/24 06:31 cefdinir Allergy unknown Uncoded 02/28/24 06:31 PFSH Acute 2 PFSH: Medical History (Updated 03/22/24 @ 12:56 by Flo Villarreal MD) Acute kidney injury CHF (congestive heart failure) Chest pain Status post left heart catheterization (LHC) Groin hematoma Left ACL tear Fracture of fifth toe, left, closed Derangement of lateral meniscus of right knee Derangement of medial meniscus of right knee Chronic kidney disease (CKD) Lumbar stenosis with neurogenic claudication Inability to walk Renal failure Chronic cystitis with hematuria Inability to urinate CAD (coronary artery disease) Atherosclerotic heart disease of [place] coronary artery with other forms of angina pectoris Non-ST elevation [place] (NSTEMI) Lower extremity weakness Elevated troponin Depression with anxiety Coronary artery disease due to type 2 diabetes mellitus Morbid obesity Generalized muscle weakness Type 2 diabetes mellitus with diabetic polyneuropathy Diabetes mellitus Small bowel strangulation Dyslipidemia Chronic cystitis Gross hematuria Osteoporosis Morbid obesity Constipation Migraine headache Bilateral lower extremity edema RLS (restless legs syndrome) GERD (gastroesophageal reflux disease) BETH (obstructive sleep apnea) CVA (cerebral vascular accident) HTN (hypertension) DM type 2 (diabetes mellitus, type 2) Pulmonary embolism, bilateral Opioid contract exists Long-term use of high-risk medication Chronic low back pain Surgical History Status post lumbar laminectomy H/O heart artery stent S/P hysterectomy S/P tonsillectomy and adenoidectomy S/P appendectomy S/P cholecystectomy Hx of total knee replacement History of partial surgical removal of colon Family History Grandfather Cancer Family/Other Myocardial infarct MOTHER, FATHER, BROTHER, SISTER Hypertension Diabetes Mother , at age 66 CAD (coronary artery disease) Father , at age 74 CAD (coronary artery disease) Sister CAD (coronary artery disease) Brother CAD (coronary artery disease) Other Stroke Denies family history of Anesthesia complication Bleeding disorder Social History Smoking and tobacco/nicotine status: never used tobacco/nicotine Alcohol intake: never Substance/Drug Use: current Substance/Drug use frequency: other Other substance/drug use details: smokes medical marijauna occasionally at night to help her sleep Lives independently: Yes Marital status: Current occupational status: disabled Current gender identity: Female Special vik needs: No Vitals/I&O/Wt Last Vital Signs Temp 98.1 F 03/22/24 07:34 Pulse 84 03/22/24 11:08 Resp 18 03/22/24 10:11 BP 134/60 03/22/24 11:08 Pulse Ox 98 03/22/24 11:08 O2 Del Method Nasal Cannula 03/22/24 11:44 O2 Flow Rate 3 03/22/24 07:34 Weight last 48 hrs Weight 106.277 kg Weight 99.79 kg Physical Exam 2 Narrative: General exam is a white female, currently no obvious distress but does complain of some chest discomfort with moving. I took her off her oxygen during my interview, and she saturates normally on room air HEENT: Atraumatic normocephalic. Oropharynx clear Neck is supple no lymphadenopathy thyromegaly Cardiovascular regular rate and rhythm without murmur Lungs clear Abdomen soft obese positive bowel sounds Extremities no cyanosis clubbing edema Chest and upper abdomen fairly tender with any kind of palpation. Skin no rash Neuro no obvious focal deficits Data 03/22/24 07:49 03/22/24 07:49 Other Labs: ABG demonstrates pH 7.38, pCO2 43, pO2 113 on 3 L. LFTs are normal Calcium, albumin normal Troponin 116 repeat 114 I have ordered a urinalysis, TSH, BNP EKG by my review demonstrates sinus rhythm, normal axis, nonspecific ST-T wave changes, poor R wave progression Chest x-ray by my read cardiomegaly, some interstitial edema A&P Assessment and plan (1) Chest pain: Patient presents with chest discomfort. Overall her description is somewhat atypical, but nonetheless concerning secondary to her past medical history. Serial troponins. Currently it appears that she has a type II elevation Cardiology evaluation I do not see a reason referable repeat echocardiogram at this time. Qualifiers: Chest pain type: other chest pain Qualified Code(s): R07.89 - Other chest pain (2) CHF (congestive heart failure): Patient reports increased swelling lately, although now improved after Lasix in the ER I suspect she may have had some mild CHF Reevaluate her home meds, for possible increase in Lasix daily dosing Await renal function tomorrow before determining dose Note this is likely a mild acute diastolic dysfunction based on her last echo with relatively preserved EF Currently no need for oxygen. She does report she wears 2 L sometimes at night. (3) Acute kidney injury: Patient with acute kidney injury, superimposed on chronic kidney disease BMP daily Plan History of coronary artery disease. Continue her Brilinta, aspirin, Imdur, ranolazine, beta-marjorie, statin Diabetes mellitus, sliding scale insulin Multiple other medical problems as listed in past medical history Full code Heparin for DVT prophylaxis Home medication list needs reconciled. Attestations 2 Medical Necessity Statement*: Will require less than 2 midnight stay for chest discomfort, mild CHF Diagnoses Other chest pain R07.89 Chest pain type: other chest pain CHF (congestive heart failure) I50.9 Acute kidney injury N17.9 Time Spent (min) 55
[2024-03-22 13:03] LABS: NT Pro B Type Natriuretic Pept 710 pg/mL (0-125); Thyroid Stimulating Hormone 4.72 uIU/mL (0.27-4.20)
--- NOTE | 2024-03-22 13:24 | PC.PHAR ---
per Valeria Rn-nurse for Watson Bridges-sent and refaxed med list several times w/o success. By phone verified all meds with only one change: [id number] dc'd and new order for Bupropion Hcl 200mg one tablet twice daily, was added. Pt did take all her morning medications. 03/22/24
[2024-03-22] MEDS: HYDROcodone-acetaminophen 5-325 mg Tablet 1 TAB PO (13:31)
[2024-03-22] MEDS: heparin 5,000 unit/mL INJ 1 mL 5000 UNIT SUBCUT ×2 (13:32→21:37)
--- NOTE | 2024-03-22 13:41 | ECG_ITS ---
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 Measurements Intervals [place] Rate: 86 P: 48 UT: 179 QRS: 32 QRSD: 99 T: 117 QT: 359 QTc: 430 Interpretive Statements SINUS RHYTHM POSSIBLE ANTERIOR MYOCARDIAL INFARCTION , PROBABLY OLD [30 ms Q WAVE IN V3/V4, OR R < 0.2 mV IN V4] Compared to ECG 03/22/2024 09:45:34 No significant changes Electronically Signed On 03-22-2024 16:55:47 CDT by Denisse Rodriguez M.D. [id number]
[2024-03-22 14:21] LABS: Troponin 5 6HR Delta 5.2 ng/L (0-12)
[2024-03-22 14:24] LABS: Troponin 5 6HR 121.2 ng/L (0-10)
--- NOTE | 2024-03-22 15:36 | P.CONIM_ITS ---
Providers/Reason For Consult 2 Consulting Physician/Specialty*: Jaiden Newell MD / Cardiology Reason for Consult*: Chest pain Requesting Physician: Dr Sharma Attending Physician: Flo Villarreal MD Primary Care Provider: Niko Jerez MD History of Present Illness History of Present Illness Watson Bridges is a 63 year old female with past medical history of CAD who has been brought from detention as she has been having on and off chest pain for the last 3 days. Pain gets worse with movement and inspiration. EKG shows non- specific chest pain. No active chest pain at this time. Review of Systems 2 Const: Denies: fever(s), chills, body aches or change in appetite ENMT: Denies: throat pain or dental pain Card: Reports: chest pain Resp: Denies: dyspnea GI: Denies: abdominal pain, nausea, vomiting or diarrhea Musc: Denies: neck pain or back pain Skin/Breast: Denies: rash Neuro: Denies: headache(s) Medications/Allergies Home Medications Medication Instructions Recorded Confirmed Last Taken Type walker with seat and brakes #1 ea 03/26/20 03/22/24 08/08/20 22:30 Rx insulin admin supplies (InPen (for #150 ea 10/04/21 03/22/24 Unknown Rx Humalog) subcutaneous) diabetic shoes and inserts #1 ea 05/11/22 03/22/24 Unknown Rx insulin syringe-needle U-100 /2 #100 ea 09/23/22 03/22/24 Unknown Rx mL 31 gauge x 15/64 (BD Veo Insulin Syringe Ultra-Fine) lancets 33 gauge (BD Ultra Fine #100 ea 09/23/22 03/22/24 Unknown Rx Lancets) blood sugar diagnostic (Accu-Chek #100 ea 12/09/22 03/22/24 Unknown Rx Guide test strips) tamsulosin 0.4 mg capsule 0.4 mg PO BEDTIME@22 01/06/23 03/22/24 03/21/24 History calcium carbonate (Tums) 1,000 mg PO DAILY PRN Stomach Upset 01/18/23 03/22/24 09/14/23 History cholecalciferol (vitamin D3) 1,250 50,000 unit PO Q7D 01/18/23 03/22/24 03/16/24 History mcg (50,000 unit) capsule nitroglycerin 0.4 mg sublingual 0.4 mg sublingual Q5M PRN Chest 01/18/23 03/22/24 Unknown History tablet (Nitrostat) Pain potassium chloride 10 mEq 10 meq PO DAILY@07 01/18/23 03/22/24 03/22/24 History tablet,extended release ASO to RIGHT #1 ea 01/20/23 03/22/24 Unknown Rx wheel-chair with foot rest #1 ea 01/20/23 03/22/24 Unknown Rx oxygen tubing #1 ea 01/24/23 03/22/24 Unknown Rx ropinirole 0.5 mg tablet 0.5 mg PO BEDTIME@22 #30 tabs 01/24/23 03/22/24 03/21/24 Rx Incontinence Supplies #1 ea 01/27/23 03/22/24 Unknown Rx levothyroxine 25 mcg capsule 25 mcg PO QAM 05/08/23 03/22/24 03/21/24 History hydrocodone 10 mg-acetaminophen 1 tab PO Q6H PRN Pain, Moderate 09/07/23 03/22/24 03/22/24 History 325 mg tablet ondansetron HCl 4 mg tablet 4 mg PO BID PRN Nausea 09/07/23 03/22/24 02/24/24 History pantoprazole 40 mg tablet,delayed 40 mg PO QAM 09/07/23 03/22/24 03/21/24 History release semaglutide 0.25 mg or 0.5 mg (2 0.5 mg SUBCUT Q7D 09/07/23 03/22/24 03/22/24 History mg/3 mL) subcutaneous pen injector (Ozempic) trazodone 50 mg tablet 50 mg PO BEDTIME 09/07/23 03/22/24 03/21/24 History bupropion HCl 200 mg tablet,12 hr 200 mg PO BID 09/14/23 03/22/24 03/21/24 History sustained-release insulin lispro 100 unit/mL 29 sliding scale dose SUBCUT TID 09/14/23 03/22/24 03/22/24 History subcutaneous pen (Humalog KwikPen (U-100) Insulin) acetaminophen 650 mg 1,300 mg PO Q8H PRN Pain 11/14/23 03/22/24 02/17/24 History tablet,extended release magnesium hydroxide 400 mg/5 mL 30 ml PO DAILY PRN Constipation 11/14/23 03/22/24 Unknown History oral suspension (Milk of Magnesia) aspirin 81 mg tablet,delayed 81 mg PO DAILY@07 #60 tabs 11/23/23 03/22/24 03/22/24 Rx release ticagrelor 90 mg tablet (Brilinta) 90 mg PO BID@07,22 #120 tabs 11/23/23 03/22/24 03/22/24 Rx furosemide 20 mg tablet 20 mg PO DAILY #30 tabs 11/29/23 03/22/24 03/22/24 Rx metoprolol succinate 50 mg 75 mg PO QAM 12/20/23 03/22/24 03/22/24 History tablet,extended release 24 hr ranolazine 500 mg tablet,extended 500 mg PO BID #60 tabs 12/22/23 03/22/24 03/22/24 Rx release,12 hr atorvastatin 40 mg tablet 40 mg PO BEDTIME 02/28/24 03/22/24 03/21/24 History furosemide 10 mg/mL injection 40 mg IM DAILY PRN Edema 02/28/24 03/22/24 02/21/24 History solution insulin glargine 100 unit/mL (3 32 unit SUBCUT QAM 02/28/24 03/22/24 03/21/24 History mL) subcutaneous pen (Lantus Solostar U-100 Insulin) isosorbide mononitrate 60 mg 60 mg PO DAILY 02/28/24 03/22/24 03/22/24 History tablet,extended release 24 hr triamterene 37.5 2 tab PO DAILY 02/28/24 03/22/24 03/22/24 History mg-hydrochlorothiazide 25 mg tablet Allergies Allergy/AdvReac Type Severity Reaction Status Date / Time hyoscyamine Allergy Severe ADR-Itching Verified 02/28/24 06:31 ciprofloxacin [From Cipro] Allergy hives Verified 02/28/24 06:31 citalopram Allergy effects Verified 02/28/24 06:31 speach and memory clopidogrel [From Plavix] Allergy unk Verified 02/28/24 06:31 coconut Allergy Unknown Verified 02/28/24 06:31 ibuprofen Allergy RASH/ Verified 02/28/24 06:31 SWELLING famotidine AdvReac Mild itching Verified 02/28/24 06:31 esomeprazole [From Nexium] AdvReac Unknown Verified 02/28/24 06:31 cefdinir Allergy unknown Uncoded 02/28/24 06:31 Current Medications Generic Name Dose Route Start Last Admin Trade Name Freq PRN Reason Stop Dose Admin Hydrocodone Bitart/Acetaminophen 1 tab 03/22/24 12:58 03/22/24 13:31 Hydrocodone-Acetaminophen 5-325 Mg Tablet PO 1 tab Q4H PRN Administration MODERATE TO SEVERE PAIN Heparin Sodium (Porcine) 5,000 unit 03/22/24 13:00 03/22/24 13:32 Heparin 5,000 Unit/Ml Inj 1 Ml SUBCUT 5,000 unit Q8H SAÚL Administration PFSH Acute 2 PFSH: Medical History Acute kidney injury CHF (congestive heart failure) Chest pain Status post left heart catheterization (LHC) Groin hematoma Left ACL tear Fracture of fifth toe, left, closed Derangement of lateral meniscus of right knee Derangement of medial meniscus of right knee Chronic kidney disease (CKD) Lumbar stenosis with neurogenic claudication Inability to walk Renal failure Chronic cystitis with hematuria Inability to urinate CAD (coronary artery disease) Atherosclerotic heart disease of [place] coronary artery with other forms of angina pectoris Non-ST elevation [place] (NSTEMI) Lower extremity weakness Elevated troponin Depression with anxiety Coronary artery disease due to type 2 diabetes mellitus Morbid obesity Generalized muscle weakness Type 2 diabetes mellitus with diabetic polyneuropathy Diabetes mellitus Small bowel strangulation Dyslipidemia Chronic cystitis Gross hematuria Osteoporosis Morbid obesity Constipation Migraine headache Bilateral lower extremity edema RLS (restless legs syndrome) GERD (gastroesophageal reflux disease) BETH (obstructive sleep apnea) CVA (cerebral vascular accident) HTN (hypertension) DM type 2 (diabetes mellitus, type 2) Pulmonary embolism, bilateral Opioid contract exists Long-term use of high-risk medication Chronic low back pain Surgical History Status post lumbar laminectomy H/O heart artery stent S/P hysterectomy S/P tonsillectomy and adenoidectomy S/P appendectomy S/P cholecystectomy Hx of total knee replacement History of partial surgical removal of colon Family History Grandfather Cancer Family/Other Myocardial infarct MOTHER, FATHER, BROTHER, SISTER Hypertension Diabetes Mother , at age 66 CAD (coronary artery disease) Father , at age 74 CAD (coronary artery disease) Sister CAD (coronary artery disease) Brother CAD (coronary artery disease) Other Stroke Denies family history of Anesthesia complication Bleeding disorder Social History Smoking and tobacco/nicotine status: never used tobacco/nicotine Alcohol intake: never Substance/Drug Use: current Substance/Drug use frequency: other Other substance/drug use details: smokes medical marijauna occasionally at night to help her sleep Lives independently: Yes Marital status: Current occupational status: disabled Current gender identity: Female Special vik needs: No Vitals/I&O/Wt Last Vital Signs Temp 98.2 F 03/22/24 15:22 Pulse 88 03/22/24 15:22 Resp 12 03/22/24 15:22 BP 133/64 03/22/24 15:22 Pulse Ox 95 03/22/24 15:22 O2 Del Method Room Air 03/22/24 15:22 O2 Flow Rate 3 03/22/24 07:34 Weight last 48 hrs Weight 234 lb 4.8 oz Weight 220 lb Physical Exam 2 Narrative: GENERAL: Patient is alert, awake and oriented x3. [] NECK: No jugular vein distension. [] HEENT: No cyanosis. No icterus. No pallor. [] HEART: Regular S1 and S2. Grade 2/6 systolic murmur LUNGS: Clear to auscultate bilaterally. [] CENTRAL NERVOUS SYSTEM: Grossly nonfocal. [] EXTREMITIES: Lower extremities with 1+ edema bilaterally. Data 03/23/24 03:42 03/23/24 03:42 A&P Assessment and plan (1) Chest pain: Qualifiers: Chest pain type: other chest pain Qualified Code(s): R07.89 - Other chest pain (2) CAD (coronary artery disease): Qualifiers: Coronary Disease-Associated Artery/Lesion type: [place] artery [place] vs. transplanted heart: [place] heart Associated angina: angina presence unspecified Qualified Code(s): I25.10 - Atherosclerotic heart disease of [place] coronary artery without angina pectoris (3) CHF (congestive heart failure): Plan Patient's chest pain symptoms are atypical. Troponins have not trended up. No significant ST-T wave changes on EKG. She has multiple comorbidities. Feels her chest discomfort has improved since getting some diuresis. Mild volume overload. Monitor renal function. Continue dual antiplatelet therapy Can obtain limited echocardiogram to assess LV function if has recurrence of chest pain. Otherwise medical therapy is appropriate Thank you for involving us with care of this patient. We will continue to follow. Please call with questions. Consult Attestations 2 Medical Necessity Statement: Care expected to cross 2 midnights. Coding Level of Care Code Acute Code for g Fwd Diagnoses Other chest pain R07.89 Chest pain type: other chest pain Coronary artery disease involving [place] coronary artery of [place] heart, angina presence unspecified I25.10 Coronary Disease-Associated Artery/Lesion type: [place] artery [place] vs. transplanted heart: [place] heart Associated angina: angina presence unspecified CHF (congestive heart failure) I50.9
[2024-03-22 17:20] LABS: Glucose Point of Care 214 mg/dL (70-110)
[2024-03-22 20:31] LABS: Glucose Point of Care 240 mg/dL (70-110)
[2024-03-22] MEDS: ondansetron 2 mg/ML SDV 2 mL 4 MG IVP (21:48)
[2024-03-23] VITALS (12 sets, daily range): BP systolic 94–153; BP diastolic 58–85; PULSE 72–103; RESP 14–20; TEMP 36.5–36.7; O2SAT 94–98; BMI 41.6
[2024-03-23 03:19] LABS: Glucose Point of Care 176 mg/dL (70-110)
[2024-03-23 03:56] LABS: Basophils # 0.1 10^3/uL (0.0-0.1); Basophils % 0.7 %; Eosinophils # 0.8 10^3/uL (0.0-0.8); Eosinophils % 8.8 %; Hematocrit 37.8 % (36-47); Lymphocytes # 3.1 10^3/uL (0.8-4.8); Lymphocytes % 35.3 %; Mean Corpuscular HGB Conc 31.2 g/dL (30-55); Mean Corpuscular Hemoglobin 27.6 pg (27-33); Mean Corpuscular Volume 88.3 fl (85-98); Mean Platelet Volume 9.5 fL (7.4-10.4); Monocytes # 0.6 10^3/uL (0.2-0.9); Monocytes % 6.9 %; Neutrophils # 4.21 10^3/uL (1.8-7.7); Neutrophils % 48.1 %; Nucleated Red Blood Cells % 0 %; Platelet Count 309 10^3/cmm (157-399); Red Blood Count 4.28 10^6/uL (3.85-5.65); Red Cell Distribution Width 14.1 % (12.1-15.1); White Blood Count 8.75 10^3/uL (3.29-11.43)
[2024-03-23 04:14] LABS: Alanine Aminotransferase 12 U/L (0-33); Albumin Level 3.6 g/dL (3.5-5.2); Alkaline Phosphatase 122 U/L (35-105); Anion Gap 13.7 (5-19); Aspartate Amino Transferase 10 U/L (0-32); Blood Urea Nitrogen 61 mg/dL (8-23); Calcium 9.2 mg/dL (8.5-10.5); Carbon Dioxide 29 mmol/L (22-29); Chloride 100 mmol/L (98-107); Globulin 3.2 g/dL (1.3-4.6); Glomerular Filtration Rate 26.9 mL/min (90-130); Glucose 214 mg/dL (65-115); Magnesium 1.9 mg/dL (1.7-2.3); Osmolality Calculated 310 mOsm/kg (285-295); Potassium 4.7 mmol/L (3.5-5.1); Sodium 138 mmol/L (136-145); Total Bilirubin 0.3 mg/dL (0.15-1.2); Total Protein 6.8 g/dL (6.6-8.7)
[2024-03-23 04:15] LABS: Creatinine Clr Calc Pharmacy 36.2997
[2024-03-23] MEDS: morphine 4 mg/mL SDV 1 mL 2 MG IVP (05:07)
[2024-03-23] MEDS: heparin 5,000 unit/mL INJ 1 mL 5000 UNIT SUBCUT ×3 (05:10→21:38)
[2024-03-23 06:19] LABS: Glucose Point of Care 241 mg/dL (70-110)
--- NOTE | 2024-03-23 09:09 | P.PN_ITS ---
Subjective 2 Subjective: No acute vents overnight. Patient has not had any further chest pain. Has remained hemodynamically stable and afebrile. Remains on room air. chest pain free this AM. atypical CP Seen by cardiology. no concern for ACS or need for PCI. CP atypical. continue diuresis still complaining of swelling in legs some CP from fall Medications: Reviewed: Yes Vitals/I&O/Wt Last Vital Signs Temp 97.8 F 03/23/24 08:00 Pulse 81 03/23/24 08:00 Resp 16 03/23/24 08:00 BP 125/67 03/23/24 08:00 Pulse Ox 94 03/23/24 08:00 O2 Del Method Room Air 03/23/24 08:00 O2 Flow Rate 3 03/22/24 07:34 Weight last 48 hrs Weight 235 lb 3.732 oz Weight 234 lb 4.8 oz Weight 220 lb Physical Exam 2 Narrative: General exam is a white female, currently no obvious distress but does complain of some chest discomfort with moving. I took her off her oxygen during my interview, and she saturates normally on room air HEENT: Atraumatic normocephalic. Oropharynx clear Neck is supple no lymphadenopathy thyromegaly Cardiovascular regular rate and rhythm without murmur. 1+ edema bilateral legs Lungs clear Abdomen soft obese positive bowel sounds Extremities no cyanosis clubbing edema Chest and upper abdomen fairly tender with any kind of palpation. Skin no rash Neuro no obvious focal deficits Data 03/23/24 03:42 03/23/24 03:42 A&P Assessment and plan (1) Chest pain: Patient presents with chest discomfort. Overall her description is somewhat atypical, but nonetheless concerning secondary to her past medical history. Serial troponins. type II elevation Cardiology evaluation atypiacal CP Qualifiers: Chest pain type: other chest pain Qualified Code(s): R07.89 - Other chest pain (2) CHF (congestive heart failure): seen at bedside today. complaining of rib pain from fall. imaging negative admits to some swelling in legs. SOB still present. will increase lasix to IV 40mg qAM and IV 20mg qnoon (3) Acute kidney injury: Patient with acute kidney injury, superimposed on chronic kidney disease BMP daily Plan History of coronary artery disease. Continue her Brilinta, aspirin, Imdur, ranolazine, beta-marjorie, statin Diabetes mellitus, sliding scale insulin Multiple other medical problems as listed in past medical history will give additional PO 40mg lasix today. likely for discharge in AM Full code Heparin for DVT prophylaxis Home medication list needs reconciled. Attestations 2 Medical Necessity Statement*: will require 2 overnight stays for heart failure Coding Level of Care Code 54666 Diagnoses Other chest pain R07.89 Chest pain type: other chest pain CHF (congestive heart failure) I50.9 Acute kidney injury N17.9
--- NOTE | 2024-03-23 10:06 | PC.NURSE ---
patient assisted up to chair and BSC x2 with walker. Patient did very well.
[2024-03-23] MEDS: HYDROcodone-acetaminophen 5-325 mg Tablet 1 TAB PO ×3 (11:24→23:22)
[2024-03-23 12:25] LABS: Glucose Point of Care 174 mg/dL (70-110)
--- NOTE | 2024-03-23 12:35 | PM.PN ---
Subjective Subjective: Patient has on and off atypical chest pain. Vitals/I&O/Wt Last Vital Signs Temp 97.8 F 03/23/24 08:00 Pulse 81 03/23/24 08:00 Resp 16 03/23/24 08:00 BP 125/67 03/23/24 08:00 Pulse Ox 94 03/23/24 08:00 O2 Del Method Room Air 03/23/24 08:00 O2 Flow Rate 3 03/22/24 07:34 03/22/24 03/23/24 03/23/24 22:59 06:59 14:59 Intake Total 220 / 220 Balance 220 / 220 Weight last 48 hrs Weight 235 lb 3.732 oz Weight 234 lb 4.8 oz Weight 220 lb Physical Exam Narrative: GENERAL: Patient is alert, awake and oriented x3. [] NECK: No jugular vein distension. [] HEENT: No cyanosis. No icterus. No pallor. [] HEART: Regular S1 and S2. Grade 2/6 systolic murmur LUNGS: Clear to auscultate bilaterally. [] CENTRAL NERVOUS SYSTEM: Grossly nonfocal. [] EXTREMITIES: Lower extremities with 1+ edema bilaterally. Data 03/23/24 03:42 03/23/24 03:42 A&P Assessment and plan (1) Chest pain: Qualifiers: Chest pain type: other chest pain Qualified Code(s): R07.89 - Other chest pain (2) CAD (coronary artery disease): Qualifiers: Coronary Disease-Associated Artery/Lesion type: [place] artery [place] vs. transplanted heart: [place] heart Associated angina: angina presence unspecified Qualified Code(s): I25.10 - Atherosclerotic heart disease of [place] coronary artery without angina pectoris (3) CHF (congestive heart failure): Plan Patient staying stable. Creatinine is elevated. Gentle diuresis. No further CAD workup at this time. Thank you for involving us with care of this patient. We will continue to follow. Please call with questions. Attestations Medical Necessity Statement*: Care expected to cross 2 midnights. Coding Level of Care Code Acute Code for g Fwd Diagnoses Other chest pain R07.89 Chest pain type: other chest pain Coronary artery disease involving [place] coronary artery of [place] heart, angina presence unspecified I25.10 Coronary Disease-Associated Artery/Lesion type: [place] artery [place] vs. transplanted heart: [place] heart Associated angina: angina presence unspecified CHF (congestive heart failure) I50.9
[2024-03-23] MEDS: FUROsemide 40 mg Tablet PO (13:04)
--- NOTE | 2024-03-23 14:41 | PC.NURSE ---
Assisted patient up to wheelchair using walker and gait belt x1 person. Patient rolling up the solomon using arms and legs. Provided words of encouragement to motivate her. Patient stated, I CAN do this. Patient has been able to move from chair to BSC and back again using walker. Patient presents to be unsure of herself however does remarkably well. Will continue to monitor.
[2024-03-23 17:14] LABS: Glucose Point of Care 308 mg/dL (70-110)
[2024-03-23] MEDS: ranolazine (12HR) 500 mg Tablet PO (17:57)
[2024-03-23] MEDS: hyDROXYzine 25 mg Capsule PO (17:57)
--- NOTE | 2024-03-23 18:35 | PC.NURSE ---
Patient IV went bad. She is wondering if she really has to have it. She has no IV medications. Informed Dr Pandya and received instructions to leave out.
[2024-03-23 19:07] LABS: Add Urine Culture? Yes; Bacteria Urine 1+ /hpf; Bilirubin Urine Neg (Negative); Blood Urine 3+ (Negative); Glucose Urine UA Trace (Normal); Ketones Urine Negative (Negative); Leukocyte Esterase Urine 2+ (Negative); Nitrate Urine Negative (Negative); Protein Urine 1+ (Negative); RBC Urine 0-4 /hpf (0-2); Squamous Epithelial Cell Urine 0-4 /hpf (0-5); Urine Appearance Cloudy (CLEAR); Urine Color Yellow (Yellow); Urobilinogen Urine Norm (Negative); WBC Urine TOO NUMEROUS TO CNT /hpf (0-5); pH Urine 5 (5-7)
[2024-03-23 20:49] LABS: Glucose Point of Care 383 mg/dL (70-110)
[2024-03-23] MEDS: atorvastatin 40 mg Tablet PO (21:33)
[2024-03-23] MEDS: tamsulosin 0.4 mg Capsule PO (21:33)
[2024-03-23] MEDS: trazodone 50 mg Tablet PO (21:33)
[2024-03-23] MEDS: ropinirole 0.25 mg Tablet 0.5 MG PO (21:33)
[2024-03-24 04:00] VITALS: BP 136/65; PULSE 98; RESP 15; TEMP 37; O2SAT 94
[2024-03-24] MEDS: heparin 5,000 unit/mL INJ 1 mL 5000 UNIT SUBCUT ×2 (04:54→13:32)
[2024-03-24 05:15] VITALS: PULSE 97
[2024-03-24] MEDS: metoprolol succinate ER (24 HR) 50 mg Tablet 75 MG PO (05:46)
[2024-03-24] MEDS: levothyroxine 25 mcg Tablet PO (05:46)
[2024-03-24 06:16] LABS: Glucose Point of Care 193 mg/dL (70-110)
[2024-03-24] MEDS: HYDROcodone-acetaminophen 5-325 mg Tablet 1 TAB PO ×2 (07:22→13:32)
[2024-03-24] MEDS: ranolazine (12HR) 500 mg Tablet PO (07:22)
[2024-03-24] MEDS: hyDROXYzine 25 mg Capsule PO ×2 (07:22→13:32)
[2024-03-24] MEDS: isosorbide mononitrate ER 60 mg Tablet PO (07:22)
[2024-03-24 08:00] VITALS: BP 111/49; PULSE 87; RESP 20; TEMP 36.6; O2SAT 92
--- NOTE | 2024-03-24 08:34 | PM.PN ---
Subjective Subjective: Patient is stable. Mild chest discomfort. Vitals/I&O/Wt Last Vital Signs Temp 97.8 F 03/24/24 08:00 Pulse 87 03/24/24 08:00 Resp 20 H 03/24/24 08:00 BP 111/49 03/24/24 08:00 Pulse Ox 92 03/24/24 08:00 O2 Del Method Room Air 03/24/24 08:00 O2 Flow Rate 3 03/22/24 07:34 03/23/24 03/24/24 03/24/24 22:59 06:59 14:59 Intake Total 620 / 1460 Balance 620 / 1460 Weight last 48 hrs Weight 232 lb 5.875 oz Weight 235 lb 3.732 oz Weight 234 lb 4.8 oz Physical Exam Narrative: GENERAL: Patient is alert, awake and oriented x3. [] NECK: No jugular vein distension. [] HEENT: No cyanosis. No icterus. No pallor. [] HEART: Regular S1 and S2. Grade 2/6 systolic murmur LUNGS: Clear to auscultate bilaterally. [] CENTRAL NERVOUS SYSTEM: Grossly nonfocal. [] EXTREMITIES: Lower extremities with 1+ edema bilaterally. Data 03/23/24 03:42 03/24/24 09:23 A&P Assessment and plan (1) Chest pain: Qualifiers: Chest pain type: other chest pain Qualified Code(s): R07.89 - Other chest pain (2) CAD (coronary artery disease): Qualifiers: Coronary Disease-Associated Artery/Lesion type: [place] artery [place] vs. transplanted heart: [place] heart Associated angina: angina presence unspecified Qualified Code(s): I25.10 - Atherosclerotic heart disease of [place] coronary artery without angina pectoris (3) CHF (congestive heart failure): Plan Creatinine is improving. Gentle diuresis. Monitor renal function. Thank you for involving us with care of this patient. Please call with questions. Attestations Medical Necessity Statement*: Care expected to cross 2 midnights. Coding Level of Care Code Acute Code for [facility] Fwd Diagnoses Other chest pain R07.89 Chest pain type: other chest pain Coronary artery disease involving [place] coronary artery of [place] heart, angina presence unspecified I25.10 Coronary Disease-Associated Artery/Lesion type: [place] artery [place] vs. transplanted heart: [place] heart Associated angina: angina presence unspecified CHF (congestive heart failure) I50.9
--- NOTE | 2024-03-24 10:22 | PC.NURSE ---
Abdulaziz not given this am per Dr Ramírez. to change to oral medications.
[2024-03-24 10:26] LABS: Blood Urea Nitrogen 53 mg/dL (8-23); Calcium 8.6 mg/dL (8.5-10.5); Carbon Dioxide 24 mmol/L (22-29); Chloride 100 mmol/L (98-107); Glomerular Filtration Rate 30.6 mL/min (90-130); Glucose 216 mg/dL (65-115); Osmolality Calculated 301 mOsm/kg (285-295); Sodium 135 mmol/L (136-145)
[2024-03-24 10:36] LABS: Anion Gap 15.5 (5-19); Creatinine Clr Calc Pharmacy 40.3778; Potassium 4.5 mmol/L (3.5-5.1)
--- NOTE | 2024-03-24 11:17 | PM.DCS ---
Discharge Providers Date of Admission: 03/22/24 11:00 Date of Discharge: March 24, 2024 Attending Provider at Admission: Flo Villarreal MD Attending Provider at Discharge: Renay Ramírez MD Primary Care Provider: Niko Jerez MD Diagnoses at Discharge Discharge Diagnosis (1) Chest pain: Status: Acute Qualifiers: Chest pain type: other chest pain Qualified Code(s): R07.89 - Other chest pain (2) CAD (coronary artery disease): Status: Acute Qualifiers: Associated angina: angina presence unspecified Coronary Disease-Associated Artery/Lesion type: [place] artery [place] vs. transplanted heart: [place] heart Qualified Code(s): I25.10 - Atherosclerotic heart disease of [place] coronary artery without angina pectoris (3) CHF (congestive heart failure): Status: Acute Reason for Visit Reason for Visit: sob/cp Hospital Course Hospital Course 63-year female who was admitted for management evaluation of chest pain which was deemed atypical, cardiology recommended echo which did not show any wall motion abnormality, during hospitalization patient was treated for possible UTI, patient remained afebrile, no significant leukocytosis, she is suffering from acute on chronic kidney disease cardiorenal in nature, creatinine trending down with diuresis, Lasix discontinued on discharge she was given Bumex, cefpodoxime, hydrochlorothiazide discontinued, metoprolol added at low-dose. She is being discharged back to the senior care with stable hemodynamics. Physical Exam Narrative: Awake and alert Morbid obese Mild signs of CHF Complaining of pain on taking deep breaths bilaterally Pleasant and cooperative S1, S2 Patient did well on room air Discharge Data Studies Completed and Pending Completed Studies During Hospitalization Category Date Time Status CT head wo con* [id number] Stat Cat Scan 03/22/24 10:24 Completed XR chest 1V portable [id number] Stat Exams 03/22/24 07:41 Completed Pending at discharge Category Date Time Status Urine Culture Routine Lab 03/23/24 18:45 Received Radiology Impressions Chest X-Ray 03/22/24 07:41 IMPRESSION: Stable abnormal chest with cardiomegaly and central venous congestion. Head CT 03/22/24 10:24 IMPRESSION: 1. No definite evidence of intracranial hemorrhage or mass effect 2. Tiny focus of increased attenuation LEFT frontal lobe laterally likely prominent vessel or artifact. This could be followed up later today to confirm stability. 3. Otherwise no acute intracranial findings. Laboratory Results WBC 8.75 10^3/uL (3.29-11.43) 03/23/24 03:42 RBC 4.28 10^6/uL (3.85-5.65) 03/23/24 03:42 Hgb 11.80 g/dL (11.27-16.99) 03/23/24 03:42 Hct 37.8 % (36-47) 03/23/24 03:42 MCV 88.3 fl (85-98) 03/23/24 03:42 MCH 27.6 pg (27-33) 03/23/24 03:42 MCHC 31.2 g/dL (30-55) 03/23/24 03:42 RDW 14.1 % (12.1-15.1) 03/23/24 03:42 Plt Count 309 10^3/cmm (157-399) 03/23/24 03:42 MPV 9.5 fL (7.4-10.4) 03/23/24 03:42 Neut % (Auto) 48.1 % 03/23/24 03:42 Lymph % (Auto) 35.3 % 03/23/24 03:42 Nobles % (Auto) 6.9 % 03/23/24 03:42 Eos % (Auto) 8.8 % 03/23/24 03:42 Baso % (Auto) 0.7 % 03/23/24 03:42 Neut # (Auto) 4.21 10^3/uL (1.8-7.7) 03/23/24 03:42 Lymph # (Auto) 3.1 10^3/uL (0.8-4.8) 03/23/24 03:42 Nobles # (Auto) 0.6 10^3/uL (0.2-0.9) 03/23/24 03:42 Eos # (Auto) 0.8 10^3/uL (0.0-0.8) 03/23/24 03:42 Baso # (Auto) 0.1 10^3/uL (0.0-0.1) 03/23/24 03:42 Nucleated RBC % (auto) 0 % 03/23/24 03:42 Nucleated RBCs # 0.0 /100WBC 03/23/24 03:42 Specimen Type Arterial 03/22/24 07:47 Sample Site Brachial, right 03/22/24 07:47 ABG pH 7.38 (7.35-7.45) 03/22/24 07:47 ABG pCO2 43.1 mmHg (35-45) 03/22/24 07:47 ABG pO2 113.0 mmHg (80.0-100.0) H 03/22/24 07:47 ABG PO2/FiO2 Ratio 353 03/22/24 07:47 ABG HCO3 25.2 mmol/L (22-26) 03/22/24 07:47 ABG O2 Saturation 99.0 03/22/24 07:47 ABG Base Excess -0.2 mmol/L (-2.0-2.0) 03/22/24 07:47 Peter Test N/a 03/22/24 07:47 A-a O2 Gradient 7.7 mmHg (5-10) 03/22/24 07:47 Hematocrit 36.3 % (37-47) L 03/22/24 07:47 Hgb O2 Saturation 97.2 % (95-100) 03/22/24 07:47 Carboxyhemoglobin 0.8 %THgb (0.4-20.1) 03/22/24 07:47 Methemoglobin 1.1 % (0.4-1.5) 03/22/24 07:47 Total Hemoglobin 11.8 g/dL (12-16) L 03/22/24 07:47 Sodium 135.0 mmol/L (131-143) 03/22/24 07:47 Potassium 4.6 mmol/L (3.5-5.0) 03/22/24 07:47 Glucose 292.0 mg/dL (70-115) H 03/22/24 07:47 Ionized Calcium 1.3 mmol/L (1.1-1.4) 03/22/24 07:47 O2 Delivery Device Nc 03/22/24 07:47 O2 Liters/Min 3.0 % 03/22/24 07:47 FiO2 32.0 % 03/22/24 07:47 Binitrotoluene Operator ID Amh 03/22/24 07:47 Sodium 135 mmol/L (136-145) L 03/24/24 09:23 Potassium 4.5 mmol/L (3.5-5.1) 03/24/24 09:23 Chloride 100 mmol/L (98-107) 03/24/24 09:23 Carbon Dioxide 24 mmol/L (22-29) 03/24/24 09:23 Anion Gap 15.5 (5-19) 03/24/24 09:23 BUN 53 mg/dL (8-23) H 03/24/24 09:23 Creatinine 1.7 mg/dL (0.5-0.9) H 03/24/24 09:23 GFR Calculation 30.6 mL/min (90-130) L 03/24/24 09:23 Glucose 216 mg/dL (65-115) H 03/24/24 09:23 POC Glucose 193 mg/dL (70-110) H 03/24/24 06:10 Calculated Osmolality 301 mOsm/kg (285-295) H 03/24/24 09:23 Calcium 8.6 mg/dL (8.5-10.5) 03/24/24 09:23 Magnesium 1.9 mg/dL (1.7-2.3) 03/23/24 03:42 Total Bilirubin 0.3 mg/dL (0.15-1.2) 03/23/24 03:42 AST 10 U/L (0-32) 03/23/24 03:42 ALT 12 U/L (0-33) 03/23/24 03:42 Alkaline Phosphatase 122 U/L (35-105) H 03/23/24 03:42 Troponin T Baseline 116 ng/L (0-10) H* 03/22/24 07:49 Troponin T 120 Minute 114.6 ng/L (0-10) H 03/22/24 09:43 Delta Troponin T -1.4 ABS# (0-10) L 03/22/24 09:43 Troponin T Hi Sens 6Hr 121.2 ng/L (0-10) H 03/22/24 13:49 Troponin T Hi Sens 6Hr Delta 5.2 ng/L (0-12) 03/22/24 13:49 NT-Pro-B Natriuret Pep 710 pg/mL (0-125) H 03/22/24 07:49 Total Protein 6.8 g/dL (6.6-8.7) 03/23/24 03:42 Albumin 3.6 g/dL (3.5-5.2) 03/23/24 03:42 Globulin 3.2 g/dL (1.3-4.6) 03/23/24 03:42 TSH 4.72 uIU/mL (0.27-4.20) H 03/22/24 07:49 Urine Color Yellow (Yellow) 03/23/24 18:45 Urine Appearance Cloudy (CLEAR) A 03/23/24 18:45 Urine pH 5 (5-7) 03/23/24 18:45 Ur Specific [place] 1.010 (1.005-1.030) 03/23/24 18:45 Urine Protein 1+ (Negative) H 03/23/24 18:45 Urine Glucose (UA) Trace (Normal) H 03/23/24 18:45 Urine Ketones Negative (Negative) 03/23/24 18:45 Urine Blood 3+ (Negative) H 03/23/24 18:45 Urine Nitrate Negative (Negative) 03/23/24 18:45 Urine Bilirubin Neg (Negative) 03/23/24 18:45 Urine Urobilinogen Norm mg/dL (Negative) 03/23/24 18:45 Ur Leukocyte Esterase 2+ (Negative) H 03/23/24 18:45 Urine RBC 0-4 /hpf (0-2) H 03/23/24 18:45 Urine WBC Too numerous to cnt /hpf (0-5) H 03/23/24 18:45 Ur Squamous Epith Cells 0-4 /hpf (0-5) H 03/23/24 18:45 Amorphous Sediment Not Reportable 03/23/24 18:45 Urine Bacteria 1+ /hpf (NONE) H 03/23/24 18:45 Vitals Last Vital Signs Temp 97.8 F 03/24/24 08:00 Pulse 87 03/24/24 08:00 Resp 20 H 03/24/24 08:00 BP 111/49 03/24/24 08:00 Pulse Ox 92 03/24/24 08:00 O2 Del Method Room Air 03/24/24 08:00 O2 Flow Rate 3 03/22/24 07:34 Discharge Plan Discharge Patient Disposition: Xfer SNF Condition: Stable Prescriptions: New metoprolol tartrate 50 mg tablet 50 mg PO BID Qty: 60 3RF Rx Instructions: Hold if heart rate below 60 or blood pressure below 90/60 Pyridium 100 mg tablet 200 mg PO TID PRN (Reason: dysuria) Qty: 60 0RF cefpodoxime 200 mg tablet 200 mg PO BID Qty: 20 0RF Rx Instructions: must administer with a meal/food bumetanide 2 mg tablet 2 mg PO DAILY Qty: 60 3RF Continued (DME) walker with seat and brakes See Rx Instructions .Route .MEDSUPPLY Qty: 1 0RF Rx Instructions: As directed (DME) InPen (for Humalog) Insulin Pen See Rx Instructions .Route Qty: 150 0RF Rx Instructions: qid to inject insulin (DME) diabetic shoes and inserts See Rx Instructions .Route .MEDSUPPLY Qty: 1 0RF Rx Instructions: As directed (DME) lancets [BD Ultra Fine Lancets] 33 gauge misc See Rx Instructions .Route Qty: 100 1RF Rx Instructions: As directed ([facility]) insulin syringe-needle U-100 [BD Veo Insulin Syringe UF] 1/2 mL 31 gauge x 15/64 syringe See Rx Instructions .ROUTE .MEDSUPPLY Qty: 100 2RF Rx Instructions: As directed pantoprazole 40 mg tablet,delayed release (DR/EC) 40 mg PO QAM ondansetron HCl 4 mg tablet 4 mg PO BID PRN (Reason: Nausea) hydrocodone-acetaminophen 10-325 mg tablet 1 tab PO Q6H PRN (Reason: Pain, Moderate) Ozempic 0.25 mg or 0.5 mg (2 mg/3 mL) pen injector 0.5 mg SUBCUT Q7D tamsulosin 0.4 mg capsule 0.4 mg PO BEDTIME@22 ropinirole 0.5 mg tablet 0.5 mg PO BEDTIME@22 Qty: 30 2RF (DME) oxygen tubing See Rx Instructions .Route .MEDSUPPLY Qty: 1 0RF Rx Instructions[facility] ASO to RIGHT See Rx Instructions .Route .MEDSUPPLY Qty: 1 0RF Rx Instructions: As directed ([facility]) wheel-chair with foot rest See Rx Instructions .Route .MEDSUPPLY Qty: 1 0RF Rx Instructions: As directed by HOME levothyroxine 25 mcg capsule 25 mcg PO QAM trazodone 50 mg tablet 50 mg PO BEDTIME (DME) Accu-Chek Guide test strips Strip See Rx Instructions .Route Qty: 100 5RF Rx Instructions: As directed; to test 5 x daily (DME) Incontinence Supplies See Rx Instructions .Route .MEDSUPPLY Qty: 1 0RF Rx Instructions: As directed calcium carbonate [Tums] 200 mg calcium (500 mg) Tablet,Chewable 1,000 mg PO DAILY PRN (Reason: Stomach Upset) nitroglycerin [Nitrostat] 0.4 mg Tablet, Sublingual 0.4 mg SUBLINGUAL Q5M PRN (Reason: Chest Pain) Rx Instructions: do not exceed 3 doses per episode potassium chloride 10 mEq tablet extended release 10 meq PO DAILY@07 cholecalciferol (vitamin D3) 1,250 mcg (50,000 unit) capsule 50,000 unit PO Q7D Rx Instructions: Takes on Sat bupropion HCl 200 mg tablet sustained-release 12 hr 200 mg PO BID insulin lispro [Humalog KwikPen Insulin] 100 unit/mL insulin pen 29 sliding scale dose SUBCUT TID metoprolol succinate 50 mg tablet extended release 24 hr 75 mg PO QAM ranolazine 500 mg Tablet Extended Release 12 Hr 500 mg PO BID Qty: 60 0RF isosorbide mononitrate 60 mg tablet extended release 24 hr 60 mg PO DAILY atorvastatin 40 mg tablet 40 mg PO BEDTIME insulin glargine [Lantus Solostar U-100 Insulin] 100 unit/mL (3 mL) insulin pen 32 unit SUBCUT QAM acetaminophen 650 mg Tablet Extended Release 1,300 mg PO Q8H PRN (Reason: Pain) magnesium hydroxide [Milk of Magnesia] 400 mg/5 mL Suspension 30 ml PO DAILY PRN (Reason: Constipation) aspirin 81 mg Tablet,Delayed Release (Dr/Ec) 81 mg PO DAILY@07 Qty: 60 0RF Brilinta 90 mg tablet 90 mg PO BID@ Qty: 120 0RF Discontinued triamterene-hydrochlorothiazid 37.5-25 mg tablet 2 tab PO DAILY Discharge Orders: Discharge Order (Routine); Ordered 03/24/24 Ordered By: Renay Ramírez Referrals: Niko Jerez MD [Primary Care Provider] - Discharge Diet: Diabetic Discharge Activity: Increase activity as tolerated Patient Instructions: Metoprolol (By mouth), Phenazopyridine (By mouth) (Pyridium, Pyridiate, Azo Standard), Bumetanide (By mouth) (Bumex), Cefpodoxime Proxetil (By mouth) (Vantin), Heart Failure (DC), Chest Pain (DC), Acute Kidney Injury (DC) Discharge Attestations Time Spent in Discharge Care*: greater than 30 min Status at Discharge: Cognitive status at discharge: cognitively intact, Behavioral status at discharge: cooperative, Quality Metrics Clinical Quality Measures [ No reported AMI, CVA or VTE this stay] Coding Level of Care Code Acute Code for Chg Fwd Diagnoses Other chest pain R07.89 Chest pain type: other chest pain Coronary artery disease involving [place] coronary artery of [place] heart, angina presence unspecified I25.10 Associated angina: angina presence unspecified Coronary Disease-Associated Artery/Lesion type: [place] artery [place] vs. transplanted heart: [place] heart CHF (congestive heart failure) I50.9
[2024-03-24 12:00] VITALS: BP 107/47; PULSE 88; RESP 16; TEMP 36.7
[2024-03-24 12:08] LABS: Glucose Point of Care 228 mg/dL (70-110)
--- NOTE | 2024-03-24 12:36 | PC.NURSE ---
MTM called @ 12:25 to arrange transportation. Spoke with Grace- Bertrand ID # [id number]
[2024-03-24 14:23] VITALS: BP 107/47; PULSE 88; RESP 16; TEMP 36.7
--- NOTE | 2024-03-24 14:54 | PC.NURSE ---
patient returning to [facility]. Report called to JON Kohler. Patient taken by [facility] ambulance service.
== END 2024-03-24 14:57 | disposition skilled nursing facility (03) ==
LOC: ER 08:50 → CSU 12:25
PROVIDERS: Family Medicine; Internal Medicine; Admitting Provider Internal Medicine; Emergency Provider Family Medicine; PCP Internal Medicine; Visit Provider Internal Medicine
DX: R07.89 Other chest pain (principal); I25.10 Atherosclerotic heart disease of native coronary artery without angina pectoris; I50.9 Heart failure, unspecified; E66.01 Morbid (severe) obesity due to excess calories; Z68.41 Body mass index [BMI] 40.0-44.9, adult; E11.22 Type 2 diabetes mellitus with diabetic chronic kidney disease; I13.0 Hypertensive heart and chronic kidney disease with heart failure and stage 1 through stage 4 chronic kidney disease, or unspecified chronic kidney disease; N18.9 Chronic kidney disease, unspecified; I25.2 Old myocardial infarction; E11.42 Type 2 diabetes mellitus with diabetic polyneuropathy; E78.5 Hyperlipidemia, unspecified; M81.0 Age-related osteoporosis without current pathological fracture; G47.33 Obstructive sleep apnea (adult) (pediatric); Z79.4 Long term (current) use of insulin
CPT/HCPCS: 36415; 36416; 36600; 70450; 71045; 80048; 80051; 80053; 81001; 82330; 82805; 82962; 83735; 83880; 84443; 84484; 85025; 87077; 87086; 87186; 93005; 96372; 96374; 96375; 96376; 99285; G0378; J1644; J1940; J2270; J2405

== ENCOUNTER 2024-04-29 07:06 | Inpatient (IN) | payer OTHER, MEDICAID, SELFPAY ==
[2024-04-29] VITALS (124 sets, daily range): BP systolic 94–154; BP diastolic 46–83; PULSE 59–76; RESP 0–33; TEMP 36.4–36.7; O2SAT 90–100; BMI 37.7; BMI 42.5
--- NOTE | 2024-04-29 07:10 | ECG_ITS ---
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
--- NOTE | 2024-04-29 07:16 | XR_ITS ---
WS: [id number] Exam: XR chest 1V portable [id number] Date/Time of Exam: 04/29/2024 7:28 AM Reason For Exam: dyspnea/cough Comparison 12/20/2023. The lungs are clear and fully expanded. Heart size top limits normal. Signs of coronary artery stenti ng. No pleural effusions. Regional bony structures are intact. Calcified granulomas in both lungs. XR/XR chest 1V portable [id number] IMPRESSION: 1. No acute cardiopulmonary finding.
--- NOTE | 2024-04-29 07:38 | ED_ITS ---
HPI - Chest Pain 2 General: Chief Complaint: Chest Pain Stated Complaint: cp Time Seen by Provider: 04/29/24 07:16 History of Present Illness: 63-year-old female who presents to the e mergency room complaining of substernal chest pain that began overnight. Began initially while she was at the [facility] sleep states she woke her up. She had 3 sprays of sublingual nitro with no relief of her symptoms. She is not currently having any chest pain at this time. She does have a history of coronary disease previously has had stents placed. She is on oxygen at this time. She states she usually wears it just at night. She is diabetic. Patient was recently hospitalized for in March for episodes of chest discomfort cardiology was consulted. Echocardiogram done and was negative. She was diuresed slightly and treated for UTI at that time. They did not recommend further evaluation. She was diuresed during that visit as well and discharged home on Bumex Associated symptoms: Reports dyspnea; Deny abdominal pain or fever(s) Related Data Home Medications Medication Instructions Recorded Confirmed tamsulosin 0.4 mg capsule 0.4 mg PO BEDTIME@01/06/23 04/29/24 calcium carbonate (Tums) 1,000 mg PO DAILY PRN Stomach Upset 01/18/23 04/29/24 cholecalciferol (vitamin D3) 1,250 50,000 unit PO Q7D 01/18/23 04/29/24 mcg (50,000 unit) capsule nitroglycerin 0.4 mg sublingual 0.4 mg sublingual Q5M PRN Chest 01/18/23 04/29/24 tablet (Nitrostat) Pain potassium chloride 10 mEq 10 meq PO DAILY@01/18/23 04/29/24 tablet,extended release levothyroxine 25 mcg capsule 25 mcg PO QAM 05/08/23 04/29/24 hydrocodone 10 mg-acetaminophen 1 tab PO Q6H PRN Pain, Moderate 09/07/23 04/29/24 325 mg tablet pantoprazole 40 mg tablet,delayed 40 mg PO QAM 09/07/23 04/29/24 release semaglutide 0.25 mg or 0.5 mg (2 0.5 mg SUBCUT Q7D 09/07/23 04/29/24 mg/3 mL) subcutaneous pen injector (Ozempic) trazodone 50 mg tablet 50 mg PO BEDTIME 09/07/23 04/29/24 bupropion HCl 200 mg tablet,12 hr 200 mg PO BID 09/14/23 04/29/24 sustained-release insulin lispro 100 unit/mL 29 sliding scale dose SUBCUT TID 09/14/23 04/29/24 subcutaneous pen (Humalog KwikPen (U-100) Insulin) acetaminophen 650 mg 1,300 mg PO Q8H PRN Pain 11/14/23 04/29/24 tablet,extended release magnesium hydroxide 400 mg/5 mL 30 ml PO DAILY PRN Constipation 11/14/23 04/29/24 oral suspension (Milk of Magnesia) atorvastatin 40 mg tablet 40 mg PO BEDTIME 02/28/24 04/29/24 insulin glargine 100 unit/mL (3 32 unit SUBCUT QAM 02/28/24 04/29/24 mL) subcutaneous pen (Lantus Solostar U-100 Insulin) isosorbide mononitrate 60 mg 60 mg PO DAILY 02/28/24 04/29/24 tablet,extended release 24 hr Previous Rx's Medication Instructions Recorded walker with seat and brakes #1 ea 03/26/20 insulin admin supplies (InPen (for #150 ea 10/04/21 Humalog) subcutaneous) diabetic shoes and inserts #1 ea 05/11/22 insulin syringe-needle U-100 1/2 #100 ea 09/23/22 mL 31 gauge x 15/64 (BD Veo Insulin Syringe Ultra-Fine) lancets 33 gauge (BD Ultra Fine #100 ea 09/23/22 Lancets) blood sugar diagnostic (Accu-Chek #100 ea 12/09/22 Guide test strips) ASO to RIGHT #1 ea 01/20/23 wheel-chair with foot rest #1 ea 01/20/23 oxygen tubing #1 ea 01/24/23 ropinirole 0.5 mg tablet 0.5 mg PO BEDTIME@ #30 tabs 01/24/23 Incontinence Supplies #1 ea 01/27/23 aspirin 81 mg tablet,delayed 81 mg PO DAILY@07 #60 tabs 11/23/23 release ticagrelor 90 mg tablet (Brilinta) 90 mg PO BID@ #120 tabs 11/23/23 ranolazine 500 mg tablet,extended 500 mg PO BID #60 tabs 12/22/23 release,12 hr bumetanide 2 mg tablet 2 mg PO DAILY #60 tabs 03/24/24 metoprolol tartrate 50 mg tablet 50 mg PO BID #60 tabs 03/24/24 phenazopyridine 100 mg tablet 200 mg (2 x 100 mg) PO TID PRN 03/24/24 (Pyridium) dysuria #60 tabs Allergies Allergy/AdvReac Type Severity Reaction Status Date / Time hyoscyamine Allergy Severe ADR-Itching Verified 04/29/24 07:19 ciprofloxacin [From Cipro] Allergy hives Verified 04/29/24 07:19 citalopram Allergy effects Verified 04/29/24 07:19 speach and memory clopidogrel [From Plavix] Allergy unk Verified 04/29/24 07:19 coconut Allergy Unknown Verified 04/29/24 07:19 ibuprofen Allergy RASH/ Verified 04/29/24 07:19 SWELLING famotidine AdvReac Mild itching Verified 04/29/24 07:19 esomeprazole [From Nexium] AdvReac Unknown Verified 04/29/24 07:19 cefdinir Allergy unknown Uncoded 04/29/24 07:19 Review of Systems 2 Const: Denies: fever(s) or chills Card: Reports: chest pain Resp: Reports: dyspnea GI: Denies: abdominal pain : Denies: dysuria, urinary frequency or urinary urgency Musc: Denies: neck pain or back pain Skin/Breast: Denies: rash PFSH ED 2 PFSH: Medical History Non-ST elevation [place] (NSTEMI) DM type 2 (diabetes mellitus, type 2) Unstable angina pectoris Acute kidney injury CHF (congestive heart failure) Chest pain Status post left heart catheterization (LHC) Groin hematoma Left ACL tear Fracture of fifth toe, left, closed Derangement of lateral meniscus of right knee Derangement of medial meniscus of right knee Chronic kidney disease (CKD) Lumbar stenosis with neurogenic claudication Inability to walk Renal failure Chronic cystitis with hematuria Inability to urinate CAD (coronary artery disease) Atherosclerotic heart disease of [place] coronary artery with other forms of angina pectoris Lower extremity weakness Elevated troponin Depression with anxiety Coronary artery disease due to type 2 diabetes mellitus Morbid obesity Generalized muscle weakness Type 2 diabetes mellitus with diabetic polyneuropathy Diabetes mellitus Small bowel strangulation Dyslipidemia Chronic cystitis Gross hematuria Osteoporosis Morbid obesity Constipation Migraine headache Bilateral lower extremity edema RLS (restless legs syndrome) GERD (gastroesophageal reflux disease) BETH (obstructive sleep apnea) CVA (cerebral vascular accident) HTN (hypertension) Pulmonary embolism, bilateral Opioid contract exists Long-term use of high-risk medication Chronic low back pain Surgical History Status post coronary artery stent placement Status post lumbar laminectomy H/O heart artery stent S/P hysterectomy S/P tonsillectomy and adenoidectomy S/P appendectomy S/P cholecystectomy Hx of total knee replacement History of partial surgical removal of colon Family History Grandfather Cancer Family/Other Myocardial infarct MOTHER, FATHER, BROTHER, SISTER Hypertension Diabetes Mother , at age 66 CAD (coronary artery disease) Father , at age 74 CAD (coronary artery disease) Sister CAD (coronary artery disease) Brother CAD (coronary artery disease) Other Stroke Denies family history of Anesthesia complication Bleeding disorder Social History Smoking and tobacco/nicotine status: never used tobacco/nicotine Alcohol intake: never Substance/Drug Use: current Substance/Drug use frequency: other Other substance/drug use details: smokes medical marijauna occasionally at night to help her sleep Lives independently: Yes Marital status: Current occupational status: disabled Current gender identity: Female Special vik needs: No Physical Exam 2 Const: GENERAL APPEARANCE: cooperative ORIENTATION/CONSCIOUSNESS: Yes awake, Yes oriented to person, Yes oriented to place and Yes oriented to time HENMT: COMMON NORMALS: normocephalic, atraumatic and hearing grossly normal bilaterally HEAD & SCALP: normocephalic and atraumatic Resp: COMMON NORMALS: normal respiratory effort, No retractions, No use of accessory muscles and clear to auscultation bilaterally AUSCULTATION: clear to auscultation bilaterally Cardio: COMMON NORMALS: regular rate, regular rhythm and No murmurs present (Cardio) RATE: regular rate RHYTHM: regular rhythm GI: COMMON NORMALS: Soft to palpation and No hepatosplenomegaly present A USCULTATION: Yes normoactive bowel sounds PALPATION: Yes Soft to palpation, No Tenderness to palpation present (GI), No Guarding due to palpation present (GI) and Yes No hepatosplenomegaly present Extremity: COMMON NORMALS: normal to inspection, capillary refill normal and no calf tenderness OTHER: + 1 Chronic lower extremity edema Neuro: SENSORIUM/ORIENTATION: Yes oriented to person, Yes oriented to place and Yes oriented to time Skin: COMMON NORMALS: no rashes or lesions noted GENERAL SKIN EXAM: no rashes or lesions noted Course 2 Vital Signs: Vital signs: Vital Signs Temperature 98.0 F 04/29/24 10:30 Pulse Rate 68 04/29/24 11:47 Respiratory Rate 20 H 04/29/24 10:35 Blood Pressure 125/65 04/29/24 10:30 Pulse Oximetry 96 04/29/24 11:21 Oxygen Delivery Me thod Nasal Cannula 04/29/24 11:21 Oxygen Flow Rate 2 04/29/24 11:21 MDM - Chest Pain Medical Decision Making Patient has substernal chest pain resolved after nitro with elevated troponin from her typical baseline. Some of this could be due to exacerbation of CHF she is not significantly fluid overloaded at this point she did not receive her Bumex this morning. Will go ahead and give her a dose of IV Bumex now. Discussed with Dr. Lorenzo is on-call for cardiology he concurs will admit due to serial cardiac enzymes and further evaluation per cardiology discussed with hospitalist orders written Lab Data 04/29/24 08:10 04/29/24 08:10 Radiology Impressions Chest X-Ray 04/29/24 07:16 IMPRESSION: 1. No acute cardiopulmonary finding. Laboratory Results WBC 8.21 10^3/uL (3.29-11.43) 04/29/24 08:10 RBC 3.20 10^6/uL (3.85-5.65) L 04/29/24 08:10 Hgb 8.80 g/dL (11.27-16.99) L 04/29/24 08:10 Hct 31.2 % (36-47) L 04/29/24 08:10 MCV 97.5 fl (85-98) 04/29/24 08:10 MCH 27.5 pg (27-33) 04/29/24 08:10 MCHC 28.2 g/dL (30-55) L 04/29/24 08:10 RDW 14.3 % (12.1-15.1) 04/29/24 08:10 Plt Count 236 10^3/cmm (157-399) 04/29/24 08:10 MPV 9.6 fL (7.4-10.4) 04/29/24 08:10 Neut % (Auto) 54.3 % 04/29/24 08:10 Lymph % (Auto) 31.9 % 04/29/24 08:10 [place] % (Auto) 6.2 % 04/29/24 08:10 Eos % (Auto) 6.9 % 04/29/24 08:10 Baso % (Auto) 0.5 % 04/29/24 08:10 Neut # (Auto) 4.45 10^3/uL (1.8-7.7) 04/29/24 08:10 Lymph # (Auto) 2.6 10^3/uL (0.8-4.8) 04/29/24 08:10 [place] # (Auto) 0.5 10^3/uL (0.2-0.9) 04/29/24 08:10 Eos # (Auto) 0.6 10^3/uL (0.0-0.8) 04/29/24 08:10 Baso # (Auto) 0.0 10^3/uL (0.0-0.1) 04/29/24 08:10 Nucleated RBC % (auto) 0 % 04/29/24 08:10 Nucleated RBCs # 0.0 /100WBC 04/29/24 08:10 Sodium 135 mmol/L (136-145) L 04/29/24 08:10 Potassium 3.9 mmol/L (3.5-5.1) 04/29/24 08:10 Chloride 101 mmol/L (98-107) 04/29/24 08:10 Carbon Dioxide 27 mmol/L (22-29) 04/29/24 08:10 Anion Gap 10.9 (5-19) 04/29/24 08:10 BUN 24 mg/dL (8-23) H 04/29/24 08:10 Creatinine 1.4 mg/dL (0.5-0.9) H 04/29/24 08:10 GFR Calculation 38.2 mL/min (90-130) L 04/29/24 08:10 Glucose 89 mg/dL (65-115) 04/29/24 08:10 Calculated Osmolality 284 mOsm/kg (285-295) L 04/29/24 08:10 Calcium 8.5 mg/dL (8.5-10.5) 04/29/24 08:10 Iron 44 ug/dL (37-145) 04/29/24 08:10 TIBC 202 mcg/dl 04/29/24 08:10 % Saturation 21.7 % (20-50) 04/29/24 08:10 Unsat Iron Binding 158 ug/dL (112-347) 04/29/24 08:10 Ferritin 165 ng/mL (15-150) H 04/29/24 08:10 Total Bilirubin 0.3 mg/dL (0.15-1.2) 04/29/24 08:10 AST 7 U/L (0-32) 04/29/24 08:10 ALT < 5 U/L (0-33) 04/29/24 08:10 Alkaline Phosphatase 103 U/L (35-105) 04/29/24 08:10 Troponin T Baseline 157 ng/L (0-10) H* 04/29/24 08:10 Total Protein 5.6 g/dL (6.6-8.7) L 04/29/24 08:10 Albumin 3.3 g/dL (3.5-5.2) L 04/29/24 08:10 Globulin 2.3 g/dL (1.3-4.6) 04/29/24 08:10 All radiology interpretation(s) finalized by discharge Discharge Plan Discharge Patient Disposition: Placed in Observation Admit Provider: Flo Villarreal Clinical Impression: Atherosclerotic heart disease of [place] coronary artery with unstable angina pectoris, DM type 2 (diabetes mellitus, type 2), CKD (chronic kidney disease), CHF (congestive heart failure), Elevated troponin I level Coding Level of Care Code ED Value Stream Leader for Romie Everett
[2024-04-29] MEDS: bumetanide 0.25 mg/mL SDV 4 mL 2 MG IVP (08:05)
[2024-04-29 08:31] LABS: Basophils % 0.5 %; Eosinophils # 0.6 10^3/uL (0.0-0.8); Eosinophils % 6.9 %; Hematocrit 31.2 % (36-47); Lymphocytes # 2.6 10^3/uL (0.8-4.8); Lymphocytes % 31.9 %; Mean Corpuscular HGB Conc 28.2 g/dL (30-55); Mean Corpuscular Hemoglobin 27.5 pg (27-33); Mean Corpuscular Volume 97.5 fl (85-98); Mean Platelet Volume 9.6 fL (7.4-10.4); Monocytes # 0.5 10^3/uL (0.2-0.9); Monocytes % 6.2 %; Neutrophils # 4.45 10^3/uL (1.8-7.7); Neutrophils % 54.3 %; Nucleated Red Blood Cells % 0 %; Platelet Count 236 10^3/cmm (157-399); Red Cell Distribution Width 14.3 % (12.1-15.1); White Blood Count 8.21 10^3/uL (3.29-11.43)
[2024-04-29 09:00] LABS: Alanine Aminotransferase < 5 U/L (0-33); Albumin Level 3.3 g/dL (3.5-5.2); Alkaline Phosphatase 103 U/L (35-105); Anion Gap 10.9 (5-19); Aspartate Amino Transferase 7 U/L (0-32); Blood Urea Nitrogen 24 mg/dL (8-23); Calcium 8.5 mg/dL (8.5-10.5); Carbon Dioxide 27 mmol/L (22-29); Chloride 101 mmol/L (98-107); Creatinine Clr Calc Pharmacy 46.6892; Globulin 2.3 g/dL (1.3-4.6); Glomerular Filtration Rate 38.2 mL/min (90-130); Glucose 89 mg/dL (65-115); Osmolality Calculated 284 mOsm/kg (285-295); Potassium 3.9 mmol/L (3.5-5.1); Sodium 135 mmol/L (136-145); Total Bilirubin 0.3 mg/dL (0.15-1.2); Total Protein 5.6 g/dL (6.6-8.7)
[2024-04-29 09:02] LABS: Troponin(5th) Baseline 157 ng/L (0-10)
--- NOTE | 2024-04-29 09:28 | ECG_ITS ---
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
--- NOTE | 2024-04-29 09:51 | PM.HP ---
Providers/Chief Complaint Admitting Physician: Flo Villarreal MD Primary Care Provider: Niko Jerez MD Chief Complaint: cp History of Present Illness Watson Bridges is a 63 year old female [facility]. She presents with complaints of chest discomfort, occurring around midnight. She states she had 3 sublingual sprays of nitroglycerin prior to resolution of the pain. She had some nausea. She states it felt like a heavy pressure in her chest, similar to her cardiac pain in the past. No vomiting, blood in stool, black or tarry stool. She denies having any chest discomfort right now. She has had multiple interventions in the recent past, with 2 angiograms November 14 in November 30 intervening on RCA, mid circumflex, PDA the initial cath and then receiving a circumflex stent again with a mid stent stenosis on November 30. She denies any evaluation of anemia before, and has never had an endoscopy. Review of Systems General: Reports: 10 or more systems reviewed and unremarkable except in HPI and below Card: Reports: chest pain; Denies: palpitations or swelling of feet/ankles Resp: Denies: dyspnea GI: Reports: nausea; Denies: abdominal pain, vomiting, hematochezia or melena Medications/Allergies Home Medications Medication Instructions Recorded Confirmed Last Taken Type walker with seat and brakes #1 ea 03/26/20 03/22/24 08/08/20 22:30 Rx insulin admin supplies (InPen (for #150 ea 10/04/21 03/22/24 Unknown Rx Humalog) subcutaneous) diabetic shoes and inserts #1 ea 05/11/22 03/22/24 Unknown Rx insulin syringe-needle U-100 07/11 #100 ea 09/23/22 03/22/24 Unknown Rx mL 31 gauge x 15/64 (BD Veo Insulin Syringe Ultra-Fine) lancets 33 gauge (BD Ultra Fine #100 ea 09/23/22 03/22/24 Unknown Rx Lancets) blood sugar diagnostic (Accu-Chek #100 ea 12/09/22 03/22/24 Unknown Rx Guide test strips) tamsulosin 0.4 mg capsule 0.4 mg PO BEDTIME@22 01/06/23 03/22/24 03/21/24 History calcium carbonate (Tums) 1,000 mg PO DAILY PRN Stomach Upset 01/18/23 03/22/2409/13/24 History cholecalciferol (vitamin D3) 1,250 50,000 unit PO Q7D 01/18/23 03/22/24 03/16/24 History mcg (50,000 unit) capsule nitroglycerin 0.4 mg sublingual 0.4 mg sublingual Q5M PRN Chest 01/18/23 03/22/24 Unknown History tablet (Nitrostat) Pain potassium chloride 10 mEq 10 meq PO DAILY@01/18/23 03/22/24 03/22/24 History tablet,extended release ASO to RIGHT #1 ea 01/20/23 03/22/24 Unknown Rx wheel-chair with foot rest #1 ea 01/20/23 03/22/24 Unknown Rx oxygen tubing #1 ea 01/24/23 03/22/24 Unknown Rx ropinirole 0.5 mg tablet 0.5 mg PO BEDTIME@22 #30 tabs 01/24/23 03/22/24 03/21/24 Rx Incontinence Supplies #1 ea 01/27/23 03/22/24 Unknown Rx levothyroxine 25 mcg capsule 25 mcg PO QAM 05/08/23 03/22/24 03/21/24 History hydrocodone 10 mg-acetaminophen 1 tab PO Q6H PRN Pain, Moderate 09/07/23 03/22/24 03/22/24 History 325 mg tablet ondansetron HCl 4 mg tablet 4 mg PO BID PRN Nausea 09/07/23 03/22/24 02/24/24 History pantoprazole 40 mg tablet,delayed 40 mg PO QAM 09/07/23 03/22/24 03/21/24 History release semaglutide 0.25 mg or 0.5 mg (2 0.5 mg SUBCUT Q7D 09/07/23 03/22/24 03/22/24 History mg/3 mL) subcutaneous pen injector (Ozempic) trazodone 50 mg tablet 50 mg PO BEDTIME 09/07/23 03/22/24 03/21/24 History bupropion HCl 200 mg tablet,12 hr 200 mg PO BID 09/14/23 03/22/24 03/21/24 History sustained-release insulin lispro 100 unit/mL 29 sliding scale dose SUBCUT TID 09/14/23 03/22/24 03/22/24 History subcutaneous pen (Humalog KwikPen (U-100) Insulin) acetaminophen 650 mg 1,300 mg PO Q8H PRN Pain 11/14/23 03/22/24 02/17/24 History tablet,extended release magnesium hydroxide 400 mg/5 mL 30 ml PO DAILY PRN Constipation 11/14/23 03/22/24 Unknown History oral suspension (Milk of Magnesia) aspirin 81 mg tablet,delayed 81 mg PO DAILY@07 #60 tabs 11/23/23 03/22/24 03/22/24 Rx release ticagrelor 90 mg tablet (Brilinta) 90 mg PO BID@,22 #120 tabs 11/23/23 03/22/24 03/22/24 Rx ranolazine 500 mg tablet,extended 500 mg PO BID #60 tabs 12/22/23 03/22/24 03/22/24 Rx release,12 hr atorvastatin 40 mg tablet 40 mg PO BEDTIME 02/28/24 03/22/24 03/21/24 History insulin glargine 100 unit/mL (3 32 unit SUBCUT QAM 02/28/24 03/22/24 03/21/24 History mL) subcutaneous pen (Lantus Solostar U-100 Insulin) isosorbide mononitrate 60 mg 60 mg PO DAILY 02/28/24 03/22/24 03/22/24 History tablet,extended release 24 hr bumetanide 2 mg tablet 2 mg PO DAILY #60 tabs 03/24/24 Unknown Rx metoprolol tartrate 50 mg tablet 50 mg PO BID #60 tabs 03/24/24 Unknown Rx phenazopyridine 100 mg tablet 200 mg (2 x 100 mg) PO TID PRN 03/24/24 Unknown Rx (Pyridium) dysuria #60 tabs Allergies Allergy/AdvReac Type Severity Reaction Status Date / Time hyoscyamine Allergy Severe ADR-Itching Verified 04/29/24 07:19 ciprofloxacin [From Cipro] Allergy hives Verified 04/29/24 07:19 citalopram Allergy effects Verified 04/29/24 07:19 speach and memory clopidogrel [From Plavix] Allergy unk Verified 04/29/24 07:19 coconut Allergy Unknown Verified 04/29/24 07:19 ibuprofen Allergy RASH/ Verified 04/29/24 07:19 SWELLING famotidine AdvReac Mild itching Verified 04/29/24 07:19 esomeprazole [From Nexium] AdvReac Unknown Verified 04/29/24 07:19 cefdinir Allergy unknown Uncoded 04/29/24 07:19 PFSH Acute PFSH: Medical History (Updated 04/29/24 @ 10:05 by Flo Villarreal MD) Non-ST elevation [place] (NSTEMI) DM type 2 (diabetes mellitus, type 2) Unstable angina pectoris Acute kidney injury CHF (congestive heart failure) Chest pain Status post left heart catheterization (LHC) Groin hematoma Left ACL tear Fracture of fifth toe, left, closed Derangement of lateral meniscus of right knee Derangement of medial meniscus of right knee Chronic kidney disease (CKD) Lumbar stenosis with neurogenic claudication Inability to walk Renal failure Chronic cystitis with hematuria Inability to urinate CAD (coronary artery disease) Atherosclerotic heart disease of [place] coronary artery with other forms of angina pectoris Lower extremity weakness Elevated troponin Depression with anxiety Coronary artery disease due to type 2 diabetes mellitus Morbid obesity Generalized muscle weakness Type 2 diabetes mellitus with diabetic polyneuropathy Diabetes mellitus Small bowel strangulation Dyslipidemia Chronic cystitis Gross hematuria Osteoporosis Morbid obesity Constipation Migraine headache Bilateral lower extremity edema RLS (restless legs syndrome) GERD (gastroesophageal reflux disease) BETH (obstructive sleep apnea) CVA (cerebral vascular accident) HTN (hypertension) Pulmonary embolism, bilateral Opioid contract exists Long-term use of high-risk medication Chronic low back pain Surgical History Status post coronary artery stent placement Status post lumbar laminectomy H/O heart artery stent S/P hysterectomy S/P tonsillectomy and adenoidectomy S/P appendectomy S/P cholecystectomy Hx of total knee replacement History of partial surgical removal of colon Family History Grandfather Cancer Family/Other Myocardial infarct MOTHER, FATHER, BROTHER, SISTER Hypertension Diabetes Mother , at age 66 CAD (coronary artery disease) Father , at age 74 CAD (coronary artery disease) Sister CAD (coronary artery disease) Brother CAD (coronary artery disease) Other Stroke Denies family history of Anesthesia complication Bleeding disorder Social History Smoking and tobacco/nicotine status: never used tobacco/nicotine Alcohol intake: never Substance/Drug Use: current Substance/Drug use frequency: other Other substance/drug use details: smokes medical marijauna occasionally at night to help her sleep Lives independently: Yes Marital status: Current occupational status: disabled Current gender identity: Female Special vik needs: No Vitals/I&O/Wt Last Vital Signs Temp 98.1 F 04/29/24 07:08 Pulse 72 04/29/24 09:30 Resp 18 04/29/24 07:08 BP 132/73 04/29/24 09:30 Pulse Ox 98 04/29/24 09:30 O2 Del Method Room Air 04/29/24 09:30 O2 Flow Rate 2 04/29/24 08:44 Weight last 48 hrs Weight 96.615 kg Physical Exam Narrative: General Exam is white female, no distress, denying any chest discomfort HEENT: Atraumatic normocephalic. Oropharynx is clear Neck is supple no lymphadenopathy thyromegaly Cardiovascular regular rate and rhythm, heart sounds distant Lungs clear Abdomen is soft, positive bowel sounds. No obvious organomegaly exam is deferred Extremities no cyanosis clubbing edema, cap refill brisk Skin no rash Neuro no focal deficits Data 04/29/24 08:10 04/29/24 08:10 Other Labs: LFTs are normal Albumin 3.3, calcium normal Troponin 157 Chest x-ray shows cardiomegaly, no acute findings per my read EKG per my read demonstrates sinus rhythm, normal axis, nonspecific ST-T wave flattening A&P Assessment and plan (1) Non-ST elevation AK (NSTEMI): Patient presents with chest discomfort, alleviated with nitro, with significant initial troponin elevation suggesting non-ST elevation myocardial infarction Continue Brilinta, aspirin Initiate heparin drip Continue statin Continue metoprolol She also has history of recurrent chronic chest pain for which she is on ranolazine. Continue Further plans after med list is reconciled. Cardiology consultation There is reference to an echocardiogram being done in March. I do not see report. Will ask ultrasound if this was in fact done. (2) Anemia: Patient with longstanding anemia She does not report any specific workup for this Iron studies Stool Hemoccult CBC daily Consider outpatient workup Note her last hospitalization she had a hematoma at her angiogram site, requiring transfusion. (3) Chronic kidney disease (CKD): Patient with significant chronic kidney disease Monitor BMP daily Avoid renal toxic medication Qualifiers: Chronic kidney disease stage: stage 3 (moderate) Chronic kidney disease stage 3 subtype: stage 3a (GFR 45-59) Qualified Code(s): N18.31 - Chronic kidney disease, stage 3a (4) DM type 2 (diabetes mellitus, type 2): Consistent carb diet when p.o. status established Sliding scale insulin Qualifiers: Diabetes mellitus continuous churn buttermaker insulin use: without continuous churn buttermaker use Diabetes mellitus complication status: without complication Qualified Code(s): E11.9 - Type 2 diabetes mellitus without complications Plan History of chronic diastolic heart failure. Currently appears fairly well compensated. Continue her Bumex. Multiple other medical problems as outlined in past medical history Attestations Medical Necessity Statement*: Will need greater than 2 midnight stay for evaluation of non-ST elevation myocardial infarction with significant anemia Coding Level of Care Code Acute Code for [facility] Diagnoses Non-ST elevation AK (NSTEMI) I21.4 Anemia D64.9 Stage 3a chronic kidney disease N18.31 Chronic kidney disease stage: stage 3 (moderate) Chronic kidney disease stage 3 subtype: stage 3a (GFR 45-59) Type 2 diabetes mellitus without complication, without long-term current use of insulin E11.9 Diabetes mellitus continuous churn buttermaker insulin use: without continuous churn buttermaker use Diabetes mellitus complication status: without complication
[2024-04-29] MEDS: heparin 5,000 unit/mL INJ 1 mL IVP (09:58)
[2024-04-29] MEDS: heparin drip 25,000 UNIT/500 ML PREMIX 27.05 UNIT IV (10:09)
--- NOTE | 2024-04-29 10:16 | PC.PHAR ---
patient is from [facility]
[2024-04-29 10:22] LABS: Ferritin 165 ng/mL (15-150); Iron 44 ug/dL (37-145); Percent Saturation 21.7 % (20-50); Total Iron Binding Capacity 202 mcg/dl; Unsaturated Iron Binding 158 ug/dL (112-347)
[2024-04-29 10:47] LABS: Troponin 5 2HR Delta 7.9 ABS# (0-10)
[2024-04-29 10:52] LABS: Troponin 5 2HR 164.9 ng/L (0-10)
--- NOTE | 2024-04-29 13:17 | ECG_ITS ---
[employer]link (air taxi)[facility] Test Date: 2024-04-29 Pat Name: Watson Bridges Department: Room: [facility] Gender: Female Facing Grinder: : 1960 Requested By: James Patel Order Number: [id number] Reading MD: JYOTI CROCKETT Measurements Intervals [place] Rate: 61 P: 54 IA: 192 QRS: 71 QRSD: 105 T: 70 QT: 435 QTc: 442 Interpretive Statements SINUS RHYTHM NONSPECIFIC T-WAVE ABNORMALITY Compared to ECG 04/29/2024 09:28:18 T-wave abnormality now present Electronically Signed On 04-30-2024 21:18:47 CDT by JYOTI CROCKETT [id number]
--- NOTE | 2024-04-29 14:15 | PM.CONSULT ---
Providers/Reason For Consult Consulting Physician/Specialty*: Hospitalist Reason for Consult*: NSTEMI Requesting Physician: Dr. Cherelle MD Attending Physician: Flo Villarreal MD Primary Care Provider: Niko Jerez MD History of Present Illness History of Present Illness Watson Bridges is a very pleasant 63 year old [place] [facility] She has known CAD, hypercholesterolemia, chronic kidney disease, type 2 diabetes, hypertension. She was recently evaluated in the hospital for chest pain, but troponins were negative. She presented with complaints of chest discomfort, occurring around midnight. She states this pain started at the center of her chest, and radiated to the left arm. She states she had 3 sublingual sprays of nitroglycerin prior to resolution of the pain. She states it felt like a heavy pressure in her chest, similar to her cardiac pain in the past. In November of 2023, she had a cardiac cath that showed patent stents in the LAD and RCA with an 80% mid circ in stent restenosis in which a stent was placed. No vomiting, blood in stool, black or tarry stool. She denies having any chest discomfort right now but reports chronic shortness of breath. She wears O2 at home at night. She has chronic lower extremity edema. She states that at this time her lower extremities are less swollen than usual. She takes Bumex 2 mg daily at home. Creatinine today is 1.4 which is about her baseline. Troponin was trending upward to about 165. Currently taking asa and Brilinta. Review of Systems Narrative: Consitutional: denies fever, chills, body aches, or changes in appetite, denies abnormal weight loss Eyes: Denies changes in vision Card: Denies chest pain, palpitations, irregular heart rhythm, edema, syncope, shortness of breath, orthopnea, leg pain with exertion Resp: Reports chronic shortness of breath, denies hemoptysis, denies cough GI: denies abdominal pain, denies nausea or voimting, denies blood in stool : denies blood in urine, denies dysuria Musc: Denies extremity pain, reports chronic lower extremity edema, reports chronic lower extremity weakness in which patient is wheelchair-bound but is attempting to get physical therapy to start to walk with a walker Skin: Denies rash, lesions, or wounds, denies changes to skin color Neuro: Denies nubmness in extremities, h/a, s/s of stroke Soham: Denies easy bruiding/bleeding All: Denies s/s of allergies Medications/Allergies Home Medications Medication Instructions Recorded Confirmed Last Taken Type walker with seat and brakes #1 ea 03/26/20 04/29/24 08/08/20 22:30 Rx insulin admin supplies (InPen (for #150 ea 10/04/21 04/29/24 Unknown Rx Humalog) subcutaneous) diabetic shoes and inserts #1 ea 05/11/22 04/29/24 Unknown Rx insulin syringe-needle U-100 2 #100 ea 09/23/22 04/29/24 Unknown Rx mL 31 gauge x 15/64 (BD Veo Insulin Syringe Ultra-Fine) lancets 33 gauge (BD Ultra Fine #100 ea 09/23/22 04/29/24 Unknown Rx Lancets) blood sugar diagnostic (Accu-Chek #100 ea 12/09/22 04/29/24 Unknown Rx Guide test strips) tamsulosin 0.4 mg capsule 0.4 mg PO BEDTIME@01/06/23 04/29/24 04/28/24 History calcium carbonate (Tums) 1,000 mg PO DAILY PRN Stomach Upset 01/18/23 04/29/24 09/14/23 History cholecalciferol (vitamin D3) 1,250 50,000 unit PO Q7D 01/18/23 04/29/24 03/16/24 History mcg (50,000 unit) capsule nitroglycerin 0.4 mg sublingual 0.4 mg sublingual Q5M PRN Chest 01/18/23 04/29/24 Unknown History tablet (Nitrostat) Pain potassium chloride 10 mEq 10 meq PO DAILY@01/18/23 04/29/24 04/28/24 History tablet,extended release ASO to RIGHT #1 ea 01/20/23 04/29/24 Unknown Rx wheel-chair with foot rest #1 ea 01/20/23 04/29/24 Unknown Rx oxygen tubing #1 ea 01/24/23 04/29/24 Unknown Rx ropinirole 0.5 mg tablet 0.5 mg PO BEDTIME@22 #30 tabs 01/24/23 04/29/24 04/28/24 Rx Incontinence Supplies #1 ea 01/27/23 04/29/24 Unknown Rx levothyroxine 25 mcg capsule 25 mcg PO QAM 05/08/23 04/29/24 04/28/24 History hydrocodone 10 mg-acetaminophen 1 tab PO Q6H PRN Pain, Moderate 09/07/23 04/29/24 04/28/24 History 325 mg tablet pantoprazole 40 mg tablet,delayed 40 mg PO QAM 09/07/23 04/29/24 04/28/24 History release semaglutide 0.25 mg or 0.5 mg (2 0.5 mg SUBCUT Q7D 09/07/23 04/29/24 04/26/24 History mg/3 mL) subcutaneous pen injector (Ozempic) trazodone 50 mg tablet 50 mg PO BEDTIME 09/07/23 04/29/24 04/28/24 History bupropion HCl 200 mg tablet,12 hr 200 mg PO BID 09/14/23 04/29/24 03/21/24 History sustained-release insulin lispro 100 unit/mL 29 sliding scale dose SUBCUT TID 09/14/23 04/29/24 04/28/24 History subcutaneous pen (Humalog KwikPen (U-100) Insulin) acetaminophen 650 mg 1,300 mg PO Q8H PRN Pain 11/14/23 04/29/24 02/17/24 History tablet,extended release magnesium hydroxide 400 mg/5 mL 30 ml PO DAILY PRN Constipation 11/14/23 04/29/24 Unknown History oral suspension (Milk of Magnesia) aspirin 81 mg tablet,delayed 81 mg PO DAILY@07 #60 tabs 11/23/23 04/29/24 04/28/24 Rx release ticagrelor 90 mg tablet (Brilinta) 90 mg PO BID@07,22 #120 tabs 11/23/23 04/29/24 04/28/24 Rx ranolazine 500 mg tablet,extended 500 mg PO BID #60 tabs 12/22/23 04/29/24 04/28/24 Rx release,12 hr atorvastatin 40 mg tablet 40 mg PO BEDTIME 02/28/24 04/29/24 03/21/24 History insulin glargine 100 unit/mL (3 32 unit SUBCUT QAM 02/28/24 04/29/24 04/28/24 History mL) subcutaneous pen (Lantus Solostar U-100 Insulin) isosorbide mononitrate 60 mg 60 mg PO DAILY 02/28/24 04/29/24 04/28/24 History tablet,extended release 24 hr bumetanide 2 mg tablet 2 mg PO DAILY #60 tabs 03/24/24 04/29/24 Unknown Rx metoprolol tartrate 50 mg tablet 50 mg PO BID #60 tabs 03/24/24 04/29/24 04/28/24 Rx phenazopyridine 100 mg tablet 200 mg (2 x 100 mg) PO TID PRN 03/24/24 04/29/24 Unknown Rx (Pyridium) dysuria #60 tabs Allergies Allergy/AdvReac Type Severity Reaction Status Date / Time hyoscyamine Allergy Severe ADR-Itching Verified 04/29/24 07:19 ciprofloxacin [From Cipro] Allergy hives Verified 04/29/24 07:19 citalopram Allergy effects Verified 04/29/24 07:19 speach and memory clopidogrel [From Plavix] Allergy unk Verified 04/29/24 07:19 coconut Allergy Unknown Verified 04/29/24 07:19 ibuprofen Allergy RASH/ Verified 04/29/24 07:19 SWELLING famotidine AdvReac Mild itching Verified 04/29/24 07:19 esomeprazole [From Nexium] AdvReac Unknown Verified 04/29/24 07:19 cefdinir Allergy unknown Uncoded 04/29/24 07:19 Current Medications Generic Name Dose Route Start Last Admin Trade Name Freq PRN Reason Stop Dose Admin Heparin Sodium/Sodium Chloride 25,000 unit in 500 mls @ 0 mls/hr 04/29/24 09:15 04/29/24 10:09 Heparin Drip IV 14 unit/kg/hr CONT SAÚL 27.05 mls/hr Administration Protocol Per Protocol Insulin Human Lispro 0 unit 04/29/24 12:00 04/29/24 11:37 Insulin Lispro 100 Unit/1 Ml SUBCUT Not Given WM&BEDTIME SAÚL Protocol PFSH Acute PFSH: Medical History Non-ST elevation NJ (NSTEMI) DM type 2 (diabetes mellitus, type 2) Unstable angina pectoris Acute kidney injury CHF (congestive heart failure) Chest pain Status post left heart catheterization (LHC) Groin hematoma Left ACL tear Fracture of fifth toe, left, closed Derangement of lateral meniscus of right knee Derangement of medial meniscus of right knee Chronic kidney disease (CKD) Lumbar stenosis with neurogenic claudication Inability to walk Renal failure Chronic cystitis with hematuria Inability to urinate CAD (coronary artery disease) Atherosclerotic heart disease of [place] coronary artery with other forms of angina pectoris Lower extremity weakness Elevated troponin Depression with anxiety Coronary artery disease due to type 2 diabetes mellitus Morbid obesity Generalized muscle weakness Type 2 diabetes mellitus with diabetic polyneuropathy Diabetes mellitus Small bowel strangulation Dyslipidemia Chronic cystitis Gross hematuria Osteoporosis Morbid obesity Constipation Migraine headache Bilateral lower extremity edema RLS (restless legs syndrome) GERD (gastroesophageal reflux disease) BETH (obstructive sleep apnea) CVA (cerebral vascular accident) HTN (hypertension) Pulmonary embolism, bilateral Opioid contract exists Long-term use of high-risk medication Chronic low back pain Surgical History Status post coronary artery stent placement Status post lumbar laminectomy H/O heart artery stent S/P hysterectomy S/P tonsillectomy and adenoidectomy S/P appendectomy S/P cholecystectomy Hx of total knee replacement History of partial surgical removal of colon Family History Grandfather Cancer Family/Other Myocardial infarct MOTHER, FATHER, BROTHER, SISTER Hypertension Diabetes Mother , at age 66 CAD (coronary artery disease) Father , at age 74 CAD (coronary artery disease) Sister CAD (coronary artery disease) Brother CAD (coronary artery disease) Other Stroke Denies family history of Anesthesia complication Bleeding disorder Social History Smoking and tobacco/nicotine status: never used tobacco/nicotine Alcohol intake: never Substance/Drug Use: current Substance/Drug use frequency: other Other substance/drug use details: smokes medical marijauna occasionally at night to help her sleep Lives independently: Yes Marital status: Current occupational status: disabled Current gender identity: Female Special vik needs: No Vitals/I&O/Wt Last Vital Signs Temp 98.0 F 04/29/24 10:30 Pulse 66 04/29/24 12:45 Resp 20 H 04/29/24 12:45 BP 128/57 10/21/24 12:45 Pulse Ox 92 04/29/24 12:45 O2 Del Method Nasal Cannula 04/29/24 11:21 O2 Flow Rate 2 04/29/24 11:21 Weight last 48 hrs Weight 240 lb 2 oz Weight 213 lb Physical Exam Narrative: Conostitutional: No apparent distress, healthy appearing, well nourished HENMT: normoceophalic Eye: PERRL Muskuloskeletal: Full ROM Lymphatic: bilateral lower extremity lymphedema noted Respiratory: Normal respiratory effort, Bilateral lower lobes with deep crackles present, no use of accessory muscles Cardio: No JVD, regular rate, regular rhythm, S1 S2 normal, no murmurs, peripheral pulses 2+ throughout GI: Normal to inspection, nondistended Extremities: Bilateral lower extremities weak, normal, normal capillary refill, no cyanosis, 2+ nonpitting edema present Neuro: Alert and oriented x4, no focal motor deficits Psych: Affect normal, denies suicidal ideation, mental status grossly normal Skin: No rashes or lesions noted, no wounds Data 04/29/24 08:10 04/29/24 08:10 A&P Assessment and plan (1) Non-ST elevation NJ (NSTEMI): Patient came in with elevated troponin. EKG with no acute findings. Patient denies any chest pain at this time. No arrhythmias present. At this time patient shows signs of fluid overload with crackles in bilateral lower lobes. Patient has CKD as well. The plan is to diurese patient this evening and reassess her tomorrow morning with renal function and hemoglobin level. Echo echocardiogram will be requested to assess LV function. Continue Aspirin and Brilinta, heparin drip. Although anemia, no s/s of bleeding at this time. Will need to continue to monitor. (2) Elevated troponin I level: As stated above. (3) CHF (congestive heart failure): Patient will need to be diuresed with close monitoring for worsening of renal function. (4) CKD (chronic kidney disease): Chronic and stable. Continue current care. Continue to avoid nephrotoxins to optimize kidneys prior to heart cath. (5) Edema: Stable, chronic. Continue with Bumex. Plan As stated above Coding Level of Care Code Acute Code for [facility] Fwd Diagnoses Non-ST elevation NJ (NSTEMI) I21.4 Elevated troponin I level R79.89 CHF (congestive heart failure) I50.9 CKD (chronic kidney disease) N18.9 Edema R60.9
[2024-04-29 14:53] LABS: Troponin 5 6HR Delta 1.4 ng/L (0-12)
[2024-04-29 14:56] LABS: Troponin 5 6HR 158.4 ng/L (0-10)
[2024-04-29 16:47] LABS: Partial Thromboplastin Time 101.4 SECONDS (23.9-36.7)
--- NOTE | 2024-04-29 16:50 | PC.NURSE ---
Transfer Note Patient transferred to CSU room 101 from ICU via bed. Handoff report given to DEANGELO Mccurdy. Patient oriented to environment and equipment. Covering service notified. Orders reviewed and will continue to monitor. Upon transfer patient is alert/oriented x4 on 2LNC, no wounds or skin issues noted at this time. All patient belongings including glasses, phone, shopfitter, pj pants, pj top, bra, pants taken with patient and placed at bedside.
[2024-04-29] MEDS: pantoprazole DR 40 mg Tablet PO (16:51)
[2024-04-29] MEDS: FUROsemide 10 mg/mL SDV 10mL 60 MG IVP (16:51)
[2024-04-29] MEDS: buPROPion SR (12 HR) 100 mg Tablet 200 MG PO (16:51)
[2024-04-29] MEDS: metoprolol tartrate 50 mg Tablet PO (16:51)
[2024-04-29] MEDS: ranolazine (12HR) 500 mg Tablet PO (16:51)
[2024-04-29 17:05] LABS: Glucose Point of Care 106 mg/dL (70-110)
[2024-04-29 21:20] LABS: Glucose Point of Care 208 mg/dL (70-110)
[2024-04-29] MEDS: insulin lispro 100 unit/1 mL SUBCUT (21:28)
[2024-04-29] MEDS: tamsulosin 0.4 mg Capsule PO (21:29)
[2024-04-29] MEDS: trazodone 50 mg Tablet PO (21:29)
[2024-04-29] MEDS: ticagrelor 90 mg Tablet PO (21:29)
[2024-04-29] MEDS: ropinirole 0.25 mg Tablet 0.5 MG PO (21:29)
[2024-04-29] MEDS: atorvastatin 40 mg Tablet PO (21:29)
--- NOTE | 2024-04-29 23:14 | ECG_ITS ---
[facility] Test Date: 2024-04-29 Pat Name: Watson Bridges Department: Room: 101 Gender: Female Product Lead: : 1960 Requested By: Sandip Dudley Order Number: [id number] Reading MD: JYOTI CROCKETT Measurements Intervals [place] Rate: 73 P: 41 TN: 183 QRS: 40 QRSD: 106 T: 33 QT: 408 QTc: 451 Interpretive Statements SINUS RHYTHM Compared to ECG 04/29/2024 14:57:15 T-wave abnormality no longer present Electronically Signed On 04-30-2024 21:17:49 CDT by JYOTI CROCKETT [id number]
[2024-04-29] MEDS: nitroglycerin 0.4 mg sublingual Tablet SUBLINGUAL (23:21)
--- NOTE | 2024-04-29 23:39 | PC.NURSE ---
Provider is updated that patient is complaining of chest pain, says it hurts and I want to cry. An order for EKG, labs, and nitro.
[2024-04-29 23:52] LABS: Partial Thromboplastin Time 68.6 SECONDS (23.9-36.7)
[2024-04-29 23:54] LABS: Troponin T (5th) Once 140 ng/L (0-10)
[2024-04-30] VITALS (16 sets, daily range): BP systolic 121–160; BP diastolic 64–78; PULSE 68–78; RESP 12–20; TEMP 36.6–37.2; O2SAT 93–98
[2024-04-30 06:02] LABS: Glucose Point of Care 115 mg/dL (70-110)
[2024-04-30] MEDS: aspirin 81 mg EC Tablet PO (06:08)
[2024-04-30] MEDS: ticagrelor 90 mg Tablet PO ×2 (06:08→21:32)
[2024-04-30] MEDS: levothyroxine 25 mcg Tablet PO (06:08)
[2024-04-30] MEDS: HYDROcodone-acetaminophen 10-325 mg Tablet 1 TAB PO (06:17)
[2024-04-30] MEDS: nitroglycerin 0.4 mg sublingual Tablet SUBLINGUAL (06:29)
[2024-04-30 06:37] LABS: Basophils % 0.3 %; Eosinophils # 0.5 10^3/uL (0.0-0.8); Eosinophils % 5.4 %; Hematocrit 30.1 % (36-47); Lymphocytes # 2.8 10^3/uL (0.8-4.8); Lymphocytes % 31.7 %; Mean Corpuscular HGB Conc 31.2 g/dL (30-55); Mean Corpuscular Hemoglobin 27.7 pg (27-33); Mean Corpuscular Volume 88.8 fl (85-98); Mean Platelet Volume 9.8 fL (7.4-10.4); Monocytes # 0.4 10^3/uL (0.2-0.9); Neutrophils # 5.05 10^3/uL (1.8-7.7); Neutrophils % 57.4 %; Nucleated Red Blood Cells % 0 %; Platelet Count 282 10^3/cmm (157-399); Red Blood Count 3.39 10^6/uL (3.85-5.65); Red Cell Distribution Width 14.6 % (12.1-15.1); White Blood Count 8.81 10^3/uL (3.29-11.43)
[2024-04-30] MEDS: heparin drip 25,000 UNIT/500 ML PREMIX 24 UNIT IV (06:38)
[2024-04-30 06:40] LABS: Anion Gap 13.1 (5-19); Blood Urea Nitrogen 24 mg/dL (8-23); Calcium 8.6 mg/dL (8.5-10.5); Carbon Dioxide 30 mmol/L (22-29); Chloride 103 mmol/L (98-107); Creatinine Clr Calc Pharmacy 44.7662; Glomerular Filtration Rate 32.8 mL/min (90-130); Glucose 109 mg/dL (65-115); Magnesium 1.7 mg/dL (1.7-2.3); Osmolality Calculated 299 mOsm/kg (285-295); Potassium 4.1 mmol/L (3.5-5.1); Sodium 142 mmol/L (136-145)
[2024-04-30] MEDS: buPROPion SR (12 HR) 100 mg Tablet 200 MG PO ×2 (08:17→17:35)
[2024-04-30] MEDS: ranolazine (12HR) 500 mg Tablet PO ×2 (08:17→17:35)
[2024-04-30] MEDS: metoprolol tartrate 50 mg Tablet PO ×2 (08:17→17:35)
[2024-04-30] MEDS: pantoprazole DR 40 mg Tablet PO ×2 (08:18→17:35)
[2024-04-30] MEDS: isosorbide mononitrate ER 60 mg Tablet PO (08:18)
--- NOTE | 2024-04-30 08:23 | USCV_ITS ---
Watson Bridges Age: 63 Gender: F : 1960 Exam Date: 04/30/2024 10:41 Ordering Phys: Flo Villarreal MD Technologist: CT Exam Location: [facility] [place] Indication: ef BP: / HR: Rhythm: Sinus Technical Quality: Adequate MEASUREMENTS (Male / Female) Normal Values 2D ECHO LVOT Diameter 2.0 cm LV Ejection Fraction MOD 4C 39.2 % LV Ejection Fraction MOD 2C 41.2 % LV Ejection Fraction 2C AL 40.9 % LA Diameter 4.4 cm RA Systolic Volume 4C AL 27.5 ml RA Systolic Volume 4C MOD 23.5 ml LA Sys Volume AL 63.4 cm cubed LA Sys Volume Index AL 27.8 cm cubed/m squared Aorta at Sinotubular Diameter 2.3 cm M-MODE LA Ao Ratio MM 2.0 AV Cusp Separation MM 1.4 cm FINDINGS Left Ventricle Diffuse hypokinesis of the left ventricle with an ejection fraction of 41%. Mildly dilated LV cavity. Right Ventricle The right ventricle is normal in size and function. Right Atrium The right atrium is normal in size. Left Atrium Mildly increased left atrial size. Mitral Valve Mild mitral annular calcification. Aortic Valve No gross abnormalities noted mild aortic valve calcification. Tricuspid Valve No gross abnormalities noted no gross abnormalities noted Pulmonic Valve Pulmonic valve not well visualized. Pericardium Normal pericardium without effusion. Aorta Normal ascending aorta dimension. IVC The inferior vena cava appears normal. CONCLUSIONS Diffuse hypokinesis of the left ventricle with an ejection fraction of 41%. Mildly increased left atrial size. Mild mitral annular calcification. Mildly dilated LV cavity. There is no pericardial effusion. There are no intracardiac masses. Compared to the study from 11/20/2023, the ejection fraction has dropped from 50 to 55% to 41% Dr Denisse Rodriguez MD [facility] (Electronically Signed) Final Date: 30 April 2024 18:40 S
--- NOTE | 2024-04-30 09:50 | PC.CHAP ---
Pastoral Care Encounter/Spiritual Assessment Type of Contact [] Declined button station worker visit [] Patient/Family/Request visit [] Outpatient visit [] Follow-up visit [] Physician referral [] Code/Alert [x] Routine visit [] Staff referral [] Actively dying [] Patient sleeping [] Family support [] [] Out of room [] Palliative care [] [] Receiving care in room [] Pre-surgical visit [] Trauma [] Long length of stay [] ICU visit [] Other: Relational/Emotional Strength [x] Patient feels connected with others/family/visitors/staff [x] Distress [x] Loneliness/isolation [] Abandonment Spirituality of Patient [x] Person of Lizette [] Attends Gnosticism of their Lizette [x] Believes in Prayer [] Reads Bible or Rastafarian materials [] There are Spiritual issues to be addressed Field Marketing Specialist Interventions [x] Prayer [x] Active listening [x] Non-anxious presence [x] Spiritual/emotional support [] Crisis/trauma care [] Spiritual counseling [] Bereavement support [] Provided bereavement packet [] Provided Bible/devotional materials [] Provided toy/stuffed animal, coloring book to patient or family member [] Provided Communion [] Anointing/Lane [] Salvation [x] Completed spiritual assessment [] Other: Impact on Illness or Injury [] Angry [] Fearful [] Anxious [] Often cries [] Exhaustion [] Unable to work [] Unable to attend mosque [] Unable to walk/stand [] Unable to read [] Unable to drive [] Unable to eat/drink [] Unable to sleep [] Unable to be with family [] Patient intubated [] Other: Summary Time spent with patient 10 min
--- NOTE | 2024-04-30 10:04 | P.PN_ITS ---
Subjective 2 Subjective: Reports she had some chest discomfort last night, alleviated with nitroglycerin. Feels like it is better now. Feels some shortness of breath. Medications: Reviewed: Yes Vitals/I&O/Wt Last Vital Signs Temp 99.0 F 04/30/24 07:25 Pulse 75 04/30/24 07:25 Resp 20 H 04/30/24 07:25 BP 140/78 04/30/24 07:25 Pulse Ox 93 04/30/24 07:25 O2 Del Method Nasal Cannula 04/30/24 07:25 O2 Flow Rate 2 04/30/24 07:25 04/29/24 04/30/24 04/30/24 22:59 06:59 14:59 Intake Total 472.588 / 472.588 323.412 / 796.000 Balance 472.588 / 472.588 323.412 / 796.000 Weight last 48 hrs Weight 113.398 kg Weight 108.919 kg Weight 96.615 kg Physical Exam 2 Narrative: General Exam is white female, no distress Neck is supple no lymphadenopathy thyromegaly Cardiovascular regular rate and rhythm, heart sounds distant Lungs clear Abdomen is soft, positive bowel sounds. No obvious organomegaly exam is deferred Extremities no cyanosis clubbing edema, cap refill brisk Data 04/30/24 06:10 04/30/24 06:10 A&P Assessment and plan (1) Non-ST elevation PA (NSTEMI): Patient presents with chest discomfort, alleviated with nitro, with significant initial troponin elevation suggesting non-ST elevation myocardial infarction Continue Brilinta, aspirin Continue heparin drip Continue statin Continue metoprolol She also has history of recurrent chronic chest pain for which she is on ranolazine. Continue Further plans after med list is reconciled. Cardiology consultation appreciated Repeat echocardiogram, limited Concern yesterday about fluid overload. Lasix 60 mg IV given in the afternoon. She did have her normal 2 mg of Lasix p.o. in the morning. Some complaints of shortness of breath this morning but no peripheral edema. Hold on further diuresis, awaiting cardiology plans. (2) Anemia: Patient with longstanding anemia She does not report any specific workup for this Iron studies do not show iron deficiency Stool Hemoccult pending Hemoglobin improved with diuresis CBC daily Consider outpatient workup Note her last hospitalization she had a hematoma at her angiogram site, requiring transfusion. (3) Chronic kidney disease (CKD): Patient with significant chronic kidney disease Monitor BMP daily. Creatinine up to 1.6 Avoid renal toxic medication Qualifiers: Chronic kidney disease stage: stage 3 (moderate) Chronic kidney disease stage 3 subtype: stage 3a (GFR 45-59) Qualified Code(s): N18.31 - Chronic kidney disease, stage 3a (4) DM type 2 (diabetes mellitus, type 2): Consistent carb diet when p.o. status established Sliding scale insulin Qualifiers: Diabetes mellitus custodial insulin use: without custodial use Diabetes mellitus complication status: without complication Qualified Code(s): E11.9 - Type 2 diabetes mellitus without complications Plan History of chronic diastolic heart failure. Currently appears fairly well compensated. Continue her Bumex. Multiple other medical problems as outlined in past medical history Attestations 2 Medical Necessity Statement*: Needs continued hospitalization for definitive evaluation of chest discomfort by cardiology. Diagnoses Non-ST elevation PA (NSTEMI) I21.4 Anemia D64.9 Stage 3a chronic kidney disease N18.31 Chronic kidney disease stage: stage 3 (moderate) Chronic kidney disease stage 3 subtype: stage 3a (GFR 45-59) Type 2 diabetes mellitus without complication, without long-term current use of insulin E11.9 Diabetes mellitus supervisor intermediates insulin use: without supervisor intermediates use Diabetes mellitus complication status: without complication Time Spent (min) 24
--- NOTE | 2024-04-30 10:40 | PM.PN ---
Subjective Subjective: Patient had chest pain last night, relieved by two nitros. No active chest pain at this time. She is still on heparin drip. She still complains of some shortness of breath. Creatinine has increased to 1.6, up from yesterday. She recieved 60 mg IV lasix and 2 mg Bumex yesterday. Bilateral lower lobes with fine crackles. Otherwise her lungs are clear. VSS. Hemaglobin up from yesterday at 9.4 Medications: Reviewed: Yes Vitals/I&O/Wt Last Vital Signs Temp 99.0 F 04/30/24 07:25 Pulse 75 04/30/24 07:25 Resp 20 H 04/30/24 07:25 BP 140/78 04/30/24 07:25 Pulse Ox 93 04/30/24 07:25 O2 Del Method Nasal Cannula 04/30/24 07:25 O2 Flow Rate 2 04/30/24 07:25 04/29/24 04/30/24 04/30/24 22:59 06:59 14:59 Intake Total 472.588 / 472.588 323.412 / 796.000 Balance 472.588 / 472.588 323.412 / 796.000 Weight last 48 hrs Weight 250 lb Weight 240 lb 2 oz Weight 213 lb Physical Exam Narrative: GENERAL: Patient is alert, awake and oriented x3. NECK: No jugular vein distension. HEENT: No cyanosis. HEART: Regular S1 and S2. No murmur, rub or gallop. LUNGS: Clear to auscultate bilateral upper lobes, bilateral lower lobes with fine crackles present. CENTRAL NERVOUS SYSTEM: Grossly nonfocal. EXTREMITIES: Lower extremities with 1+ pitting edema localized to the dorsal aspect of the feet. Data 04/30/24 06:10 04/30/24 06:10 A&P Assessment and plan (1) Non-ST elevation MS (NSTEMI): Patient had an episode of chest pain last night relieved with nitro. EKG with no acute findings. Patient had chest pain last night. No arrhythmias present. Patient seems to be at baseline as far as fluid status goes. Patient has CKD as well. Increase in creatinine to 1.6. Hemaglobin level is stable and increased from yesterday. Echo echocardiogram will be requested to assess LV function. Continue Aspirin and Brilinta, heparin drip. Although anemia, no s/s of bleeding at this time. Will need to continue to monitor. Will continue to try to optimize patient's kidney status for another day or two prior to heart cath. (2) Elevated troponin I level: As stated above. (3) CHF (congestive heart failure): Patient has been diuresed. Seems to be at baseline. Still having some shortness of breath. Repeating limited echo today. Will hold off on diuresis at this time due to increase in creatinine. Patient received 60 mg lasix with 2 mg bumex yesterday. (4) CKD (chronic kidney disease): Continue to avoid nephrotoxins to optimize kidneys prior to heart cath. Will hold on Bumex at this time and diuretics at this time. Patient received 2 mg of Bumex and 60 mg of Lasix yesterday. (5) Edema: Stable, chronic. Plan As stated above Attestations Medical Necessity Statement*: Patient require continuation hospitalization for above defined care Coding Level of Care Code Acute Code for [facility] Diagnoses Non-ST elevation MS (NSTEMI) I21.4 Elevated troponin I level R79.89 CHF (congestive heart failure) I50.9 CKD (chronic kidney disease) N18.9 Edema R60.9
[2024-04-30 12:03] LABS: Glucose Point of Care 100 mg/dL (70-110)
[2024-04-30 12:30] LABS: Partial Thromboplastin Time 60.2 SECONDS (23.9-36.7)
[2024-04-30 17:23] LABS: Glucose Point of Care 189 mg/dL (70-110)
[2024-04-30] MEDS: insulin lispro 100 unit/1 mL SUBCUT ×2 (17:33→21:32)
[2024-04-30 20:47] LABS: Partial Thromboplastin Time 60.2 SECONDS (23.9-36.7)
[2024-04-30 20:49] LABS: Glucose Point of Care 151 mg/dL (70-110)
[2024-04-30] MEDS: ropinirole 0.25 mg Tablet 0.5 MG PO (21:32)
[2024-04-30] MEDS: tamsulosin 0.4 mg Capsule PO (21:32)
[2024-04-30] MEDS: trazodone 50 mg Tablet PO (21:32)
[2024-04-30] MEDS: atorvastatin 40 mg Tablet PO (21:32)
[2024-05-01] VITALS (9 sets, daily range): BP systolic 131–155; BP diastolic 71–84; PULSE 71–81; RESP 14–24; TEMP 36.4–36.8; O2SAT 92–95
[2024-05-01] MEDS: HYDROcodone-acetaminophen 10-325 mg Tablet 1 TAB PO (00:07)
[2024-05-01] MEDS: heparin drip 25,000 UNIT/500 ML PREMIX 24 UNIT IV (04:13)
[2024-05-01 04:26] LABS: Basophils % 0.4 %; Eosinophils # 0.7 10^3/uL (0.0-0.8); Eosinophils % 8.3 %; Hematocrit 29.9 % (36-47); Lymphocytes # 3.2 10^3/uL (0.8-4.8); Lymphocytes % 35.6 %; Mean Corpuscular HGB Conc 31.4 g/dL (30-55); Mean Corpuscular Hemoglobin 27.9 pg (27-33); Mean Corpuscular Volume 88.7 fl (85-98); Mean Platelet Volume 9.6 fL (7.4-10.4); Monocytes # 0.5 10^3/uL (0.2-0.9); Monocytes % 6.1 %; Neutrophils # 4.39 10^3/uL (1.8-7.7); Neutrophils % 49.4 %; Nucleated Red Blood Cells % 0 %; Platelet Count 261 10^3/cmm (157-399); Red Blood Count 3.37 10^6/uL (3.85-5.65); Red Cell Distribution Width 14.6 % (12.1-15.1)
[2024-05-01 04:39] LABS: Partial Thromboplastin Time 52.9 SECONDS (23.9-36.7)
[2024-05-01 04:42] LABS: Anion Gap 13.8 (5-19); Blood Urea Nitrogen 23 mg/dL (8-23); Calcium 8.6 mg/dL (8.5-10.5); Carbon Dioxide 27 mmol/L (22-29); Chloride 101 mmol/L (98-107); Creatinine Clr Calc Pharmacy 55.0969; Glomerular Filtration Rate 41.6 mL/min (90-130); Glucose 136 mg/dL (65-115); Magnesium 1.8 mg/dL (1.7-2.3); Osmolality Calculated 292 mOsm/kg (285-295); Potassium 3.8 mmol/L (3.5-5.1); Sodium 138 mmol/L (136-145)
[2024-05-01] MEDS: heparin 5,000 unit/mL INJ 1 mL IVP (05:30)
[2024-05-01] MEDS: aspirin 81 mg EC Tablet PO (07:31)
[2024-05-01] MEDS: levothyroxine 25 mcg Tablet PO (07:31)
[2024-05-01] MEDS: ticagrelor 90 mg Tablet PO ×2 (07:31→21:04)
--- NOTE | 2024-05-01 07:56 | P.PN_ITS ---
Subjective 2 Subjective: Awake, alert, reports nothing is changed since yesterday. Still has some light chest discomfort. Still complains of some shortness of breath when she lays down. She is off oxygen this morning and saturation is around 92%. Medications: Reviewed: Yes Vitals/I&O/Wt Last Vital Signs Temp 98.2 F 05/01/24 07:33 Pulse 81 05/01/24 07:33 Resp 24 H 05/01/24 07:33 BP 155/73 05/01/24 07:33 Pulse Ox 95 05/01/24 07:33 O2 Del Method Nasal Cannula 05/01/24 07:33 O2 Flow Rate 2 05/01/24 04:00 04/30/24 05/01/24 05/01/24 22:59 06:59 14:59 Intake Total 420 / 782.8 402.4 / 1185.2 Balance 420 / 782.8 402.4 / 1185.2 Weight last 48 hrs Weight 113.398 kg Weight 108.919 kg Physical Exam 2 Narrative: General Exam is white female, no distress Neck is supple no lymphadenopathy thyromegaly Cardiovascular regular rate and rhythm, heart sounds distant Lungs clear Abdomen is soft, positive bowel sounds. No obvious organomegaly exam is deferred Extremities no cyanosis clubbing edema, cap refill brisk Data 05/01/24 04:10 05/01/24 04:10 A&P Assessment and plan (1) Non-ST elevation MD (NSTEMI): Patient presents with chest discomfort, alleviated with nitro, with significant initial troponin elevation suggesting non-ST elevation myocardial infarction Continue Brilinta, aspirin Continue heparin drip Continue statin Continue metoprolol She also has history of recurrent chronic chest pain for which she is on ranolazine. Continue Cardiology consultation appreciated. Probable angiogram today. Repeat echocardiogram, limited demonstrated reduced EF around 40% Creatinine improved this morning (2) Anemia: Patient with longstanding anemia She does not report any specific workup for this Iron studies do not show iron deficiency Stool Hemoccult pending Hemoglobin improved with diuresis, stable today CBC daily Consider outpatient workup Note her last hospitalization she had a hematoma at her angiogram site, requiring transfusion. (3) Chronic kidney disease (CKD): Patient with significant chronic kidney disease Monitor BMP daily. Creatinine 1.3 today Avoid renal toxic medication Qualifiers: Chronic kidney disease stage: stage 3 (moderate) Chronic kidney disease stage 3 subtype: stage 3a (GFR 45-59) Qualified Code(s): N18.31 - Chronic kidney disease, stage 3a (4) DM type 2 (diabetes mellitus, type 2): Consistent carb diet when p.o. status established Sliding scale insulin Qualifiers: Diabetes mellitus retirement insulin use: without retirement use Diabetes mellitus complication status: without complication Qualified Code(s): E11.9 - Type 2 diabetes mellitus without complications Plan History of chronic diastolic heart failure. Currently appears fairly well compensated. Continue her Bumex. Multiple other medical problems as outlined in past medical history Attestations 2 Medical Necessity Statement*: Needs continued hospitalization secondary to non-ST elevation myocardial infarction, with reduced EF pending further investigation with likely angiogram today Diagnoses Non-ST elevation MD (NSTEMI) I21.4 Anemia D64.9 Stage 3a chronic kidney disease N18.31 Chronic kidney disease stage: stage 3 (moderate) Chronic kidney disease stage 3 subtype: stage 3a (GFR 45-59) Type 2 diabetes mellitus without complication, without long-term current use of insulin E11.9 Diabetes mellitus rn long term care insulin use: without rn long term care use Diabetes mellitus complication status: without complication Time Spent (min) 24
[2024-05-01] MEDS: ranolazine (12HR) 500 mg Tablet PO ×2 (08:57→17:23)
[2024-05-01] MEDS: metoprolol tartrate 50 mg Tablet PO ×2 (08:57→17:23)
[2024-05-01] MEDS: buPROPion SR (12 HR) 100 mg Tablet 200 MG PO ×2 (08:57→17:23)
[2024-05-01] MEDS: pantoprazole DR 40 mg Tablet PO ×2 (08:57→17:23)
[2024-05-01] MEDS: isosorbide mononitrate ER 60 mg Tablet PO (08:57)
--- NOTE | 2024-05-01 09:28 | P.HPUD_ITS ---
Surgery/Procedure H&P Update DATE OF PROCEDURE: May 01, 2024 DATE H&P PERFORMED: 04/29/24 H&P UPDATE INFORMATION: I have reviewed H&P completed within last 30 days, I have examined patient prior to procedure and No changes to prior documentation PREOP DIAGNOSIS: Non-ST elevation VA, worsening of LV function and heart failure PRIMARY INDICATION FOR PROCEDURE: Non-ST ovation VA Worsening of heart failure Worsening of LV function PLANNED PROCEDURE: Left heart cath/PCI 20 PATIENT REASSESSED PRIOR TO SEDATION, WITH NO CHANGE NOTED: Yes PHYSICAL EXAM: alert, oriented x 3, clear to auscultation bilaterally and regular rate & rhythm AIRWAY EVAL/ANESTHESIA PLAN: ASA II, Risks, benefits & alternatives of sedation and/or procedure discussed and Patient agrees to continue as planned ADDITIONAL INFORMATION: Patient has been explained all risk-benefit and alternative for the procedure she understand risk for stroke major bleed which is more than 2-5%, she understand risk for urgent or emergent bypass surgery, she understand prior to 1 0% risk of hematoma infection contrast induced nephropathy leading to temporary or permanent dialysis transfusion and pseudoaneurysm. She would like to proceed with it.
--- NOTE | 2024-05-01 09:33 | PC.CHAP ---
Pastoral Care Encounter/Spiritual Assessment Type of Contact [] Declined print press operator visit [] Patient/Family/Request visit [] Outpatient visit [] Follow-up visit [] Physician referral [] Code/Alert [x] Routine visit [] Staff referral [] Actively dying [] Patient sleeping [] Family support [] [] Out of room [] Palliative care [] [] Receiving care in room [] Pre-surgical visit [] Trauma [] Long length of stay [] ICU visit [] Other: Relational/Emotional Strength [x] Patient feels connected with others/family/visitors/staff [x] Distress [] Loneliness/isolation [] Abandonment Spirituality of Patient [x] Person of Lizette [] Attends [employer] of their Lizette [x] Believes in Prayer [] Reads Bible or Sikh materials [] There are Spiritual issues to be addressed It Training Specialist Interventions [x] Prayer [] Active listening [x] Non-anxious presence [x] Spiritual/emotional support [] Crisis/trauma care [] Spiritual counseling [] Bereavement support [] Provided bereavement packet [] Provided Bible/devotional materials [] Provided toy/stuffed animal, coloring book to patient or family member [] Provided Communion [] Anointing/[place] [] Salvation [x] Completed spiritual assessment [] Other: Impact on Illness or Injury [] Angry [] Fearful [] Anxious [] Often cries [] Exhaustion [] Unable to work [] Unable to attend religion [] Unable to walk/stand [] Unable to read [] Unable to drive [] Unable to eat/drink [] Unable to sleep [] Unable to be with family [] Patient intubated [] Other: Summary Time spent with patient 5 min
--- NOTE | 2024-05-01 09:34 | PC.SOCIAL ---
IMM Update Pg. 2 of IMM updated and reviewed with patient, who verbalized understanding. Copy provided.
[2024-05-01 12:20] LABS: Glucose Point of Care 133 mg/dL (70-110)
[2024-05-01 17:00] LABS: Glucose Point of Care 164 mg/dL (70-110)
[2024-05-01] MEDS: insulin lispro 100 unit/1 mL SUBCUT (17:23)
[2024-05-01 19:45] LABS: Partial Thromboplastin Time 59.7 SECONDS (23.9-36.7)
[2024-05-01 20:47] LABS: Glucose Point of Care 151 mg/dL (70-110)
[2024-05-01] MEDS: atorvastatin 40 mg Tablet PO (21:03)
[2024-05-01] MEDS: ropinirole 0.25 mg Tablet 0.5 MG PO (21:04)
[2024-05-01] MEDS: trazodone 50 mg Tablet PO (21:04)
[2024-05-01] MEDS: tamsulosin 0.4 mg Capsule PO (21:04)
--- NOTE | 2024-05-01 21:15 | P.PN_ITS ---
Subjective 2 Subjective: Denies chest pain, creatinine improving. Hopefully by tomorrow it will further improve since patient remains asymptomatic we will proceed with left heart cath tomorrow Medications: Reviewed: Yes Vitals/I&O/Wt Last Vital Signs Temp 97.7 F 05/01/24 16:00 Pulse 72 05/01/24 16:00 Resp 14 05/01/24 16:00 BP 131/84 05/01/24 16:00 Pulse Ox 95 05/01/24 16:00 O2 Del Method Nasal Cannula 05/01/24 16:00 O2 Flow Rate 2 05/01/24 11:52 05/01/24 05/01/24 05/01/24 06:59 14:59 22:59 Intake Total 402.4 / 1185.2 615.963 / 615.963 12.837 / 628.800 Balance 402.4 / 1185.2 615.963 / 615.963 12.837 / 628.800 Weight last 48 hrs Weight 249 lb Weight 250 lb Physical Exam 2 Narrative: GENERAL: Patient is alert, awake and oriented x3. NECK: No jugular vein distension. HEENT: No cyanosis. HEART: Regular S1 and S2. No murmur, rub or gallop. LUNGS: Clear to auscultate bilateral upper lobes, bilateral lower lobes with fine crackles present. CENTRAL NERVOUS SYSTEM: Grossly nonfocal. EXTREMITIES: Lower extremities with 1+ pitting edema localized to the dorsal aspect of the feet. Const: COMMON NORMALS: alert Resp: COMMON NORMALS: clear to auscultation bilaterally AUSCULTATION: clear to auscultation bilaterally Neuro: SENSORIUM/ORIENTATION: Yes alert Data 05/01/24 04:10 05/01/24 04:10 A&P Assessment and plan (1) Non-ST elevation [place] (NSTEMI): Denies any chest pain, continue current management hopefully by tomorrow renal function will be further improved will proceed with left heart cath (2) Elevated troponin I level: As stated above. (3) CHF (congestive heart failure): Appear to be compensated, continue to hold diuretic (4) CKD (chronic kidney disease): Renal function is improving continue to hold diuretics (5) Edema: Stable, chronic. Plan As stated above Attestations 2 Medical Necessity Statement*: Patient require continuation of hospitalization for possible left heart cath tomorrow, continue to optimize medication, renal function will be closely monitored before proceeding with left heart cath Coding Level of Care Code Acute Code for Chg Fwd Diagnoses Non-ST elevation [place] (NSTEMI) I21.4 Elevated troponin I level R79.89 CHF (congestive heart failure) I50.9 CKD (chronic kidney disease) N18.9 Edema R60.9
[2024-05-02] VITALS (11 sets, daily range): BP systolic 104–167; BP diastolic 54–90; PULSE 69–77; RESP 14–23; TEMP 36.5–37.2; O2SAT 91–97
[2024-05-02] MEDS: heparin drip 25,000 UNIT/500 ML PREMIX 26 UNIT IV (00:30)
[2024-05-02 01:21] LABS: Basophils % 0.5 %; Eosinophils # 0.6 10^3/uL (0.0-0.8); Eosinophils % 7.7 %; Lymphocytes # 2.2 10^3/uL (0.8-4.8); Lymphocytes % 29.1 %; Mean Corpuscular HGB Conc 31.4 g/dL (30-55); Mean Corpuscular Hemoglobin 28.3 pg (27-33); Mean Corpuscular Volume 90.1 fl (85-98); Mean Platelet Volume 9.6 fL (7.4-10.4); Monocytes # 0.5 10^3/uL (0.2-0.9); Monocytes % 6.6 %; Neutrophils # 4.13 10^3/uL (1.8-7.7); Neutrophils % 55.8 %; Nucleated Red Blood Cells % 0 %; Platelet Count 240 10^3/cmm (157-399); Red Blood Count 3.22 10^6/uL (3.85-5.65); Red Cell Distribution Width 14.6 % (12.1-15.1); White Blood Count 7.41 10^3/uL (3.29-11.43)
[2024-05-02 01:33] LABS: Partial Thromboplastin Time 61.1 SECONDS (23.9-36.7)
[2024-05-02 01:37] LABS: Anion Gap 13.1 (5-19); Blood Urea Nitrogen 21 mg/dL (8-23); Calcium 8.4 mg/dL (8.5-10.5); Carbon Dioxide 26 mmol/L (22-29); Chloride 103 mmol/L (98-107); Creatinine Clr Calc Pharmacy 54.9669; Glomerular Filtration Rate 41.6 mL/min (90-130); Glucose 157 mg/dL (65-115); Osmolality Calculated 292 mOsm/kg (285-295); Potassium 4.1 mmol/L (3.5-5.1); Sodium 138 mmol/L (136-145)
--- NOTE | 2024-05-02 05:50 | XACV_ITS ---
Exam Room: 2 Ht: 160 cm Wt: 113 kg BSA: 2.31 m2 Gender: Female : 1960 Any Known Allergies: Ibuprofen Exam Priority: Routine Procedure(s): Procedure Description: Diagnostic procedure Procedure Description: PCI procedure Procedure Description: Drug Eluting Coronary Stent Procedure Description: PTCA Procedure Description: Miscellaneous Procedure Description: ACT Procedure Description: [facility]; Diagnostic Cath Status: Urgent Diagnostic Findings * Left Main has no disease. * Left Anterior patent previously placed proximal to mid LAD stent rest of vessel luminal luminal irregularity. * Mid Right Coronary Artery to Mid Right Coronary Artery: previously treated, critical 95% restenosis, ERICK: 3 flow. * Distal Circumflex to Distal Circumflex: severe 90% stenosis, ERICK: 3 flow. Mid previously placed left circumflex stent has mild in-stent restenosis. * Coronary angiography shows right dominance. PCI Status: Urgent PCI Indication: NSTE - ACS Interventional Findings * Mid Right Coronary Artery to Mid Right Coronary Artery: 95% stenosis treated with a AB TREK 2.50X12 RX BALLOON, ARELI Mahajan MILTON 3.5X15 JORDIN, and MDAlen JACOBS EUPHORA RX [id number] BALLOON. 0% residual stenosis, ERICK: 3 flow. Successful intervention. * Distal Circumflex to Distal Circumflex: 90% stenosis treated with a MDT NC EUPHORA RX 3.03X48EC BALLOON, and MDT NC EUPHORA RX [id number] BALLOON. 20% residual stenosis, ERICK: 3 flow. Successful intervention. Conclusions 1. There is critical coronary artery disease with two vessel disease. 2. Mid Right Coronary Artery to Mid Right Coronary Artery was treated with a Balloon, Drug Eluting Stent, and Balloon. 3. Distal Circumflex to Distal Circumflex was treated with a Balloon, and Balloon. Recommendations * 1-Return to inpatient for close monitoring and routine cath care 2-Risk factor modification for secondary prevention 3-Statin and aspirin 81 mg life-long, if tolerated 4-Continue Plavix 75mg p.o. daily for at least one year. We will assess at the end of one year again to continue if further or not 5-Continue optimal medical management 6-Follow up with Dr. Quarles in four weeks and your primary care in 10 days. Interventional RX Recommendation: PCI w/o planned CABG Diagnostic RX Recommendation: PCI w/o planned CABG Pressures Phase:Rest AO : 160 / 78 ( 109 ) @ 7:27:00 AM 160 / 79 ( 111 ) @ 7:35:00 AM 127 / 70 ( 95 ) @ 7:46:00 AM 117 / 81 ( 99 ) @ 7:54:00 AM Clinical Evaluation EBL: 5mL-10mL Procedural Details Pre-Procedure Time Out. Identified patient by full name and date of as verbalized by the patient/guarantor. Does the consent match the physician's order: Yes. Accurate & Complete Informed Consent: Yes. Inpatient/Outpatient History & Physical on Chart: Yes. If H&P is completed, is and addenduem needed: No. Visualize and Verify Site with Patient/Guarantor: N/A. Relevant Radiology Images available: Yes. Pre-op teaching completed and patient verbalized understanding. The risks, benefits, and alternatives of sedation and/or procedure were discussed by physician. The patient agrees to continue. Procedure started. [facility] Clinical Fraility Score: 4: Vulnerable. Blend Technician Indications: ACS > 24 hours/NSTEMI. Chest Pain Symptom Assessment: Typical Angina Symptoms. Cardiovascular Instability: No. Correct patient, site and procedure confirmed by cath team. Current diagnosis: NSTEMI. PERRLA. Strong, equal hand slurry worker bilaterally. Lungs clear x 5 lobes. IV Site on Arrival: 20 gauge in the right anticubital. IV Fluids: 0.9% NaCl at KVO. 0 mL infused prior to supervisor labor gang. Pre Procedural Pulses: bilateral dorsalis pedis was Doppled. Pre Procedural Pulses: bilateral posterior tibial was Doppled. Pre Procedural Pulses: bilateral radial was 3+. Oxygen started at 2liters/min via nasal canula. bilateral groins was prepped with chloroprep then draped in the usual sterile fashion. Physician notified. Baseline sample Acquired. HR: 83 BPM. Patient's family unavailable. Equipment: 6F - Femoral. Cardiac Cath Pack. ACIST Manifold Kit Model BT 2000. Heparinized Saline (2 units/mL), 1000 mL bag. Kit, Micropuncture. Physician arrived. Physician scrubbed in. Immediate Pre-Procedure Time Out. Correct Patient: Yes; Correct Procedure: Yes; Correct Site: Yes; Correct Patient Position: Yes; Correct Supplies: Yes; Dried Flammable Prep: Yes; Blood Products Available: N/A. Lidocaine 1% infiltrated to the right groin. Arterial access obtained with micropuncture set. A 5 mosotho JL4 catheter in over the standard wire. Multiple views taken of left coronary artery. ACT drawn. Results 153 seconds. Therapeutic limits - pre-heparin administration 90-150 seconds and monitoring heparin during a vascular procedure >250 seconds. Catheter removed over the standard wire. A 5 mosotho JL4 catheter in over the standard wire. Cineopgraphy of the RCA performed. Catheter removed over the standard wire. 6 mosotho JR 4 guide catheter was inserted over the standard wire. Inflation number : 1 A AB TREK 2.50X12 RX BALLOON was prepped and advanced across the Mid RCA , then inflated to 16 RICHI for 0:14 seconds. Inflation number: 2 The AB TREK 2.50X12 RX BALLOON was reinflated across the Mid RCA, to 16 RICHI for 0:07 seconds. Inflation number: 3 The AB TREK 2.50X12 RX BALLOON was reinflated across the Mid RCA, to 16 RICHI for 0:12 seconds. Inflation number: 4 The AB TREK 2.50X12 RX BALLOON was reinflated across the Mid RCA, to 16 RICHI for 0:15 seconds. Balloon out. Results checked. ACT drawn. Results Out of range HI. Will redraw. Inflation Number : 5 A MDT R MILTON 3.5X15 JORDIN -Lot Number# [id number] was prepped and advanced across the Mid RCA. The stent was deployed at 16 RICHI for 0:35 seconds. Exp. 2025-10-25. Stent balloon out over wire. Inflation number : 6 A MDT NC EUPHORA RX [id number] BALLOON was prepped and advanced across the Mid RCA , then inflated to 16 RICHI for 0:17 seconds. Inflation number: 7 The MDT NC EUPHORA RX 4.54Z98ZA BALLOON was reinflated across the Mid RCA, to 18 RICHI for 0:19 seconds. Balloon out. Results checked. Wire out. Guide catheter out over the standard wire. 6 mosotho XB 3 guide catheter was inserted over the standard wire. Runthrough guidewire was advanced through the guide catheter to lesion in the distal Circ. Runthrough guidewire was advanced through the guide catheter to lesion in the mid RCA. Inflation number : 1 A MDT NC EUPHORA RX [id number] BALLOON was prepped and advanced across the Dist CX , then inflated to 16 RICHI for 0:22 seconds. Inflation number: 2 The MDT NC EUPHORA RX 3.58H54FU BALLOON was reinflated across the Dist CX, to 12 RICHI for 0:11 seconds. Inflation number: 3 The MDT NC EUPHORA RX [id number] BALLOON was reinflated across the Dist CX, to 14 RICHI for 0:20 seconds. Balloon out. Results checked. ACT drawn. Results 259 seconds. Therapeutic limits - pre-heparin administration 90-150 seconds and monitoring heparin during a vascular procedure >250 seconds. Inflation number : 4 A MDT NC EUPHORA RX 4.67M71NP BALLOON was prepped and advanced across the Dist CX , then inflated to 14 RICHI for 0:13 seconds. Inflation number: 5 The MDT NC EUPHORA RX 4.06P60HL BALLOON was reinflated across the Dist CX, to 16 RICHI for 0:16 seconds. Inflation number: 6 The MDT NC EUPHORA RX 4.55Y69UV BALLOON was reinflated across the Dist CX, to 16 RICHI for 0:11 seconds. Inflation number: 7 The MDT NC EUPHORA RX 4.37Z69OX BALLOON was reinflated across the Dist CX, to 18 RICHI for 0:16 seconds. Balloon out. Wire out. Results checked. Guide catheter out over the standard wire. A Right femoral angiogram was performed to determine safe placement of closure device. A Angio-Seal VIP ([facility] [facility]) was successful obtaining hemostatsis at the Right Femoral artery insertion site. Lot # [id number]. Exp. 2024-11. Angioseal placed without complications. No signs or symptoms of hematoma noted. Sterile dressing applied per usual sterile fashion. Post Procedure: Pulses reassessed and unchanged. PERRLA. Strong, equal hand slurry worker bilaterally. No VTE prophylaxis required. Medication's Wasted: Lidocaine 1% = 6 mL. Medication's Wasted: Heparin = 2000 Units. Medication's Wasted: Other = Fentanyl 50 mcg. Medication's Wasted: Other = Benadryl 25 mg. Total IV fluids: 85 mL. PCI Indication: NSTE. Post-op diagnosis: PCI of the Mid RCA with one JORDIN for ISR, POBA of the Distal CX for ISR. Complications: none. Estimated blood loss: 5mL-10mL. Responsiveness - Normal response to verbal stimuli; alert and oriented, PERRLA. Airway - Unaffected, no intervention required; spontaneous ventilation. Circulation: W/N/L, pulses unchanged. Nausea/Vomiting: No. Procedure completed. Patient transferred by bed to 1st floor. Vital chart was stopped. Access Site Site: Right Femoral artery Sheath Size: 6 Fr Hemostasis Method: Angio-Seal VIP ([facility]) Hemostasis Success: Successful Procedure Medications Start: 6:14 AM Stop: 6:14 AM Medication: Benadryl Amount: 25 mg Route: I.V. Start: 6:14 AM Stop: 6:14 AM Medication: Versed Amount: 1 mg Route: I.V. Start: 6:14 AM Stop: 6:14 AM Medication: Fentanyl Amount: 25 mcg Route: I.V. Start: 6:34 AM Stop: 6:34 AM Medication: Heparin Amount: 8000 units Route: I.V. Start: 6:43 AM Stop: 6:43 AM Medication: Versed Amount: 1 mg Route: I.V. Start: 7:05 AM Stop: 7:05 AM Medication: Heparin Amount: 3000 units Route: I.V. Start: 7:15 AM Stop: 7:15 AM Medication: Aspirin Amount: 81 mg Route: P.O. Start: 7:15 AM Stop: 7:15 AM Medication: Brilinta Amount: 90 mg Route: P.O. I, the attending physician, have reviewed and verified all procedure medications. Yes, all medications given per verbal order History/Risk Factors Hypertension: Yes Dyslipidemia: Yes Peripheral Arterial Disease (PAD): No Myocardial Infarction ([place]): No Obesity: Yes Renal Disease: No Prior Interventions PCI: Yes CABG: No Valve Surgery: No Date of PCI: 11/20/2023 Report Signatures Finalized by Renay Quarles MD on 05/26/2024 11:06 PM
--- NOTE | 2024-05-02 06:14 | W.PM.OPSUD ---
Surgery/Procedure H&P Update DATE OF PROCEDURE: May 02, 2024 DATE H&P PERFORMED: 04/29/24 H&P UPDATE INFORMATION: I have reviewed H&P completed within last 30 days, I have examined patient prior to procedure and No changes to prior documentation PREOP DIAGNOSIS: Non-ST elevation CT, worsening of LV function and heart failure PRIMARY INDICATION FOR PROCEDURE: Left heart cath/PCI if indicated PATIENT REASSESSED PRIOR TO SEDATION, WITH NO CHANGE NOTED: Yes PHYSICAL EXAM: alert, oriented x 3, clear to auscultation bilaterally, regular rate & rhythm and operative site marked OTHER PERTINENT EXAM FINDINGS: GENERAL: Patient is alert, awake and oriented x3. HEART: Regular S1 and S2. No murmur, rub or gallop. LUNGS: Clear to auscultate bilaterally. CENTRAL NERVOUS SYSTEM: Grossly nonfocal. EXTREMITIES: Lower extremities with out edema bilaterally. AIRWAY EVAL/ANESTHESIA PLAN: ASA III, Risks, benefits & alternatives of sedation and/or procedure discussed and Patient agrees to continue as planned ADDITIONAL INFORMATION: Mallampati 2
--- NOTE | 2024-05-02 07:37 | PC.NURSE ---
Patient returned from cathode washer to CSU at 0723 with a right groining angioseal.
[2024-05-02] MEDS: isosorbide mononitrate ER 60 mg Tablet PO (07:55)
--- NOTE | 2024-05-02 07:55 | PM.PN ---
Subjective Subjective: Patient just completed angiogram. She denies any chest discomfort, or shortness of breath. Had in-stent stenosis RCA, drug-eluting stent placed and in-stent stenosis of left circumflex which was ballooned. Medications: Reviewed: Yes Vitals/I&O/Wt Last Vital Signs Temp 98.0 F 05/02/24 00:00 Pulse 73 05/02/24 07:36 Resp 14 05/02/24 07:36 BP 154/76 05/02/24 07:36 Pulse Ox 95 05/02/24 07:36 O2 Del Method Nasal Cannula 05/02/24 04:00 O2 Flow Rate 2 05/01/24 11:52 05/01/24 05/02/24 05/02/24 22:59 06:59 14:59 Intake Total 12.837 / 628.800 109.033 / 737.833 Balance 12.837 / 628.800 109.033 / 737.833 Weight last 48 hrs Weight 115.303 kg Weight 112.945 kg Physical Exam Narrative: General Exam is white female, no distress Neck is supple no lymphadenopathy thyromegaly Cardiovascular regular rate and rhythm, heart sounds distant Lungs clear Abdomen is soft, positive bowel sounds. No obvious organomegaly No significant hematoma noted in groin at this time Extremities no cyanosis clubbing edema, cap refill brisk Data 05/02/24 01:11 05/02/24 01:11 A&P Assessment and plan (1) Non-ST elevation [place] (NSTEMI): Patient presents with chest discomfort, alleviated with nitro, with significant initial troponin elevation suggesting non-ST elevation myocardial infarction Continue Brilinta, aspirin Continue statin, increase to 80 mg of Lipitor daily Continue metoprolol She also has history of recurrent chronic chest pain for which she is on ranolazine. Continue Cardiology consultation appreciated. Probable angiogram today. Repeat echocardiogram, limited demonstrated reduced EF around 40% Angiogram this morning, RCA stent placed, balloon angioplasty of in-stent stenosis circumflex. Repeat lab tomorrow, likely to nursing facility tomorrow Heparin IV can be discontinued (2) Anemia: Patient with longstanding anemia She does not report any specific workup for this Iron studies do not show iron deficiency Stool Hemoccult pending Hemoglobin improved with diuresis, stable today CBC daily Consider outpatient workup Note her last hospitalization she had a hematoma at her angiogram site, requiring transfusion. (3) Chronic kidney disease (CKD): Patient with significant chronic kidney disease Monitor BMP daily. Creatinine 1.3 today Avoid renal toxic medication Qualifiers: Chronic kidney disease stage: stage 3 (moderate) Chronic kidney disease stage 3 subtype: stage 3a (GFR 45-59) Qualified Code(s): N18.31 - Chronic kidney disease, stage 3a (4) DM type 2 (diabetes mellitus, type 2): Consistent carb diet when p.o. status established Sliding scale insulin Qualifiers: Diabetes mellitus long-term insulin use: without long-term use Diabetes mellitus complication status: without complication Qualified Code(s): E11.9 - Type 2 diabetes mellitus without complications Plan History of chronic diastolic heart failure. Currently appears fairly well compensated. Continue her Bumex. Multiple other medical problems as outlined in past medical history Attestations Medical Necessity Statement*: Needs continued hospitalization for close monitoring of kidney function, hemoglobin, and patient following drug-eluting stent and angioplasty done this morning. Diagnoses Non-ST elevation [place] (NSTEMI) I21.4 Anemia D64.9 Stage 3a chronic kidney disease N18.31 Chronic kidney disease stage: stage 3 (moderate) Chronic kidney disease stage 3 subtype: stage 3a (GFR 45-59) Type 2 diabetes mellitus without complication, without long-term current use of insulin E11.9 Diabetes mellitus intermodal customer service insulin use: without intermodal customer service use Diabetes mellitus complication status: without complication Time Spent (min) 23
[2024-05-02] MEDS: buPROPion SR (12 HR) 100 mg Tablet 200 MG PO ×2 (07:56→18:05)
[2024-05-02] MEDS: metoprolol tartrate 50 mg Tablet PO ×2 (07:56→18:05)
[2024-05-02] MEDS: pantoprazole DR 40 mg Tablet PO ×2 (07:56→18:05)
[2024-05-02] MEDS: ranolazine (12HR) 500 mg Tablet PO ×2 (07:56→18:05)
[2024-05-02] MEDS: levothyroxine 25 mcg Tablet PO (07:56)
[2024-05-02] MEDS: sodium chloride 0.9% 1,000 ML 100 ML IV (09:19)
[2024-05-02] MEDS: HYDROcodone-acetaminophen 10-325 mg Tablet 1 TAB PO ×2 (09:25→21:15)
[2024-05-02 11:53] LABS: Glucose Point of Care 160 mg/dL (70-110)
[2024-05-02] MEDS: insulin lispro 100 unit/1 mL SUBCUT ×3 (12:47→21:08)
[2024-05-02 17:31] LABS: Glucose Point of Care 147 mg/dL (70-110)
[2024-05-02] MEDS: magnesium hydroxide 30 mL UDC PO (18:39)
--- NOTE | 2024-05-02 20:49 | PM.PN ---
Subjective Subjective: Patient is status post PCI to mid RCA with drug-eluting stent for severe in-stent restenosis and status post balloon angioplasty to distal left circumflex for severe in-stent restenosis. Good angiographic result with ERICK-3 flow was noted at end of the case. Medications: Reviewed: Yes Vitals/I&O/Wt Last Vital Signs Temp 98.0 F 05/02/24 16:00 Pulse 69 05/02/24 16:00 Resp 14 05/02/24 16:00 BP 104/54 05/02/24 16:00 Pulse Ox 95 05/02/24 16:00 O2 Del Method Room Air 05/02/24 16:00 O2 Flow Rate 2 05/02/24 08:00 05/02/24 05/02/24 05/02/24 06:59 14:59 22:59 Intake Total 109.033 / 737.833 691.667 / 691.667 240 / 931.667 Balance 109.033 / 737.833 691.667 / 691.667 240 / 931.667 Weight last 48 hrs Weight 254 lb 3.2 oz Weight 249 lb Physical Exam Narrative: GENERAL: Patient is alert, awake and oriented x3. NECK: No jugular vein distension. HEENT: No cyanosis. HEART: Regular S1 and S2. No murmur, rub or gallop. LUNGS: Clear to auscultate bilateral upper lobes, bilateral lower lobes with fine crackles present. CENTRAL NERVOUS SYSTEM: Grossly nonfocal. EXTREMITIES: Lower extremities without pitting edema localized to the dorsal aspect of the feet. Const: COMMON NORMALS: alert Resp: COMMON NORMALS: clear to auscultation bilaterally AUSCULTATION: clear to auscultation bilaterally Neuro: SENSORIUM/ORIENTATION: Yes alert Data 05/02/24 01:11 05/02/24 01:11 A&P Assessment and plan (1) Non-ST elevation [place] (NSTEMI): Status post drug-eluting stent to mid RCA and balloon angioplasty to left circumflex for severe in-stent restenosis, continue aspirin and statin Brilinta (2) Elevated troponin I level: Post PCI now. (3) CHF (congestive heart failure): Well compensated continue holding diuretics Qualifiers: Heart failure type: systolic Heart failure chronicity: acute on chronic Qualified Code(s): I50.23 - Acute on chronic systolic (congestive) heart failure (4) CKD (chronic kidney disease): Improving continue holding diuretics, will give fluid post PCI to prevent contrast induced nephropathy check BMP in the Qualifiers: Chronic kidney disease stage: stage 3 (moderate) (5) Edema: Stable, chronic. Plan As stated above Attestations Medical Necessity Statement*: Patient require continuation hospitalization for above defined care. Coding Level of Care Code Acute Code for [facility] Fwd Diagnoses Non-ST elevation AR (NSTEMI) I21.4 Elevated troponin I level R79.89 Acute on chronic systolic congestive heart failure I50.23 Heart failure type: systolic Heart failure chronicity: acute on chronic CKD (chronic kidney disease) N18.9 Chronic kidney disease stage: stage 3 (moderate) Edema R60.9
[2024-05-02 21:02] LABS: Glucose Point of Care 175 mg/dL (70-110)
[2024-05-02] MEDS: trazodone 50 mg Tablet PO (21:08)
[2024-05-02] MEDS: temazepam 15 mg Capsule PO (21:08)
[2024-05-02] MEDS: tamsulosin 0.4 mg Capsule PO (21:08)
[2024-05-02] MEDS: atorvastatin 40 mg Tablet 80 MG PO (21:08)
[2024-05-02] MEDS: ropinirole 0.25 mg Tablet 0.5 MG PO (21:08)
[2024-05-02] MEDS: ticagrelor 90 mg Tablet PO (21:08)
[2024-05-03] VITALS: BP 139/78; PULSE 64; RESP 15; TEMP 36.8; O2SAT 93
[2024-05-03 04:00] VITALS: BP 139/87; PULSE 66; RESP 18; O2SAT 92
[2024-05-03 05:23] LABS: Basophils % 0.4 %; Eosinophils # 0.7 10^3/uL (0.0-0.8); Eosinophils % 9.1 %; Hematocrit 28.7 % (36-47); Lymphocytes # 2.1 10^3/uL (0.8-4.8); Lymphocytes % 29.2 %; Mean Corpuscular Hemoglobin 28.5 pg (27-33); Mean Platelet Volume 10.2 fL (7.4-10.4); Monocytes # 0.6 10^3/uL (0.2-0.9); Monocytes % 7.9 %; Neutrophils # 3.86 10^3/uL (1.8-7.7); Neutrophils % 53.1 %; Nucleated Red Blood Cells % 0 %; Platelet Count 229 10^3/cmm (157-399); Red Blood Count 3.12 10^6/uL (3.85-5.65); Red Cell Distribution Width 15.1 % (12.1-15.1); White Blood Count 7.26 10^3/uL (3.29-11.43)
[2024-05-03 05:32] VITALS: PULSE 66
[2024-05-03 05:49] LABS: Blood Urea Nitrogen 24 mg/dL (8-23); Calcium 8.5 mg/dL (8.5-10.5); Carbon Dioxide 25 mmol/L (22-29); Chloride 105 mmol/L (98-107); Creatinine Clr Calc Pharmacy 51.4998; Glomerular Filtration Rate 38.2 mL/min (90-130); Glucose 153 mg/dL (65-115); Osmolality Calculated 297 mOsm/kg (285-295); Sodium 140 mmol/L (136-145)
[2024-05-03 05:53] LABS: Anion Gap 14.2 (5-19); Potassium 4.2 mmol/L (3.5-5.1)
[2024-05-03] MEDS: aspirin 81 mg EC Tablet PO (06:13)
[2024-05-03] MEDS: HYDROcodone-acetaminophen 10-325 mg Tablet 1 TAB PO (06:13)
[2024-05-03] MEDS: ticagrelor 90 mg Tablet PO (06:13)
[2024-05-03] MEDS: levothyroxine 25 mcg Tablet PO (06:13)
[2024-05-03 06:29] LABS: Glucose Point of Care 168 mg/dL (70-110)
--- NOTE | 2024-05-03 07:28 | P.DS_ITS ---
Discharge Providers Date of Admission: 04/29/24 09:39 Date of Discharge: May 03, 2024 Attending Provider at Admission: Flo Villarreal MD Attending Provider at Discharge: Flo Villarreal MD Primary Care Provider: Niko Jerez MD Diagnoses at Discharge Discharge Diagnosis (1) Non-ST elevation NE (NSTEMI): Status: Acute (2) Elevated troponin I level: Status: Acute (3) CHF (congestive heart failure): Status: Acute Qualifiers: Heart failure chronicity: acute on chronic Heart failure type: systolic Qualified Code(s): I50.23 - Acute on chronic systolic (congestive) heart failure (4) CKD (chronic kidney disease): Status: Chronic Qualifiers: Chronic kidney disease stage: stage 3 (moderate) (5) Edema: Status: Acute Reason for Visit Reason for Visit: cp Hospital Course Hospital Course Patient is a 63-year-old white female from the nursing facility with history of coronary disease. She presented to the hospital with chest discomfort. She was diagnosed with a non-ST elevation myocardial infarction. There was some concern of heart failure on admission, and IV diuretic was given. The following day her creatinine was slightly high, an angiogram was held off on until this stabilized. She did receive an angiogram on 05/02, and a drug-eluting stent was placed within a stent in her RCA, and left circumflex was ballooned. She tolerated this well, and was able to be discharged on 05/03. She will resume her normal diuretic dosing tomorrow. She may continue on 2 L of oxygen which she uses intermittently at the retirement as needed. She will follow-up with cardiology, and her primary care provider within 3 to 5 days. CBC and BMP on Monday. She was able to ask questions and agreed with the plan. Regular medicines were continued with the exception of Lipitor which was increased to 80 mg. Physical Exam Narrative: General Exam no distress Neck is supple Cardiovascular regular rate and rhythm Lungs clear Abdomen soft Extremities no cyanosis clubbing or current edema Right groin without significant hematoma Discharge Data Studies Completed and Pending Completed Studies During Hospitalization Category Date Time Status XR chest 1V portable [id number] Stat Exams 04/29/24 07:16 Completed CV. echo limited [id number] Routine Ultrasound 04/30/24 08:23 Completed Pending at discharge Category Date Time Status [employer] request for service Routine Exams 05/01/24 08:28 Ordered [employer] request for service Routine Exams 05/02/24 05:50 Ordered Immunochemical Fecal OCB Stat Lab 04/29/24 08:38 Uncollected Radiology Impressions Chest X-Ray 04/29/24 07:16 IMPRESSION: 1. No acute cardiopulmonary finding. Laboratory Results WBC 7.26 10^3/uL (3.29-11.43) 05/03/24 04:12 RBC 3.12 10^6/uL (3.85-5.65) L 05/03/24 04:12 Hgb 8.90 g/dL (11.27-16.99) L 05/03/24 04:12 Hct 28.7 % (36-47) L 05/03/24 04:12 MCV 92.0 fl (85-98) 05/03/24 04:12 MCH 28.5 pg (27-33) 05/03/24 04:12 MCHC 31.0 g/dL (30-55) 05/03/24 04:12 RDW 15.1 % (12.1-15.1) 05/03/24 04:12 Plt Count 229 10^3/cmm (157-399) 05/03/24 04:12 MPV 10.2 fL (7.4-10.4) 05/03/24 04:12 Neut % (Auto) 53.1 % 05/03/24 04:12 Lymph % (Auto) 29.2 % 05/03/24 04:12 [place] % (Auto) 7.9 % 05/03/24 04:12 Eos % (Auto) 9.1 % 05/03/24 04:12 Baso % (Auto) 0.4 % 05/03/24 04:12 Neut # (Auto) 3.86 10^3/uL (1.8-7.7) 05/03/24 04:12 Lymph # (Auto) 2.1 10^3/uL (0.8-4.8) 05/03/24 04:12 [place] # (Auto) 0.6 10^3/uL (0.2-0.9) 05/03/24 04:12 Eos # (Auto) 0.7 10^3/uL (0.0-0.8) 05/03/24 04:12 Baso # (Auto) 0.0 10^3/uL (0.0-0.1) 05/03/24 04:12 Nucleated RBC % (auto) 0 % 05/03/24 04:12 Nucleated RBCs # 0.0 /100WBC 05/03/24 04:12 APTT 61.1 SECONDS (23.9-36.7) H 05/02/24 01:11 Sodium 140 mmol/L (136-145) 05/03/24 04:12 Potassium 4.2 mmol/L (3.5-5.1) 05/03/24 04:12 Chloride 105 mmol/L (98-107) 05/03/24 04:12 Carbon Dioxide 25 mmol/L (22-29) 05/03/24 04:12 Anion Gap 14.2 (5-19) 05/03/24 04:12 BUN 24 mg/dL (8-23) H 05/03/24 04:12 Creatinine 1.4 mg/dL (0.5-0.9) H 05/03/24 04:12 GFR Calculation 38.2 mL/min (90-130) L 05/03/24 04:12 Glucose 153 mg/dL (65-115) H 05/03/24 04:12 POC Glucose 168 mg/dL (70-110) H 05/03/24 06:12 Calculated Osmolality 297 mOsm/kg (285-295) H 05/03/24 04:12 Calcium 8.5 mg/dL (8.5-10.5) 05/03/24 04:12 Magnesium 1.8 mg/dL (1.7-2.3) 05/01/24 04:10 Iron 44 ug/dL (37-145) 04/29/24 08:10 TIBC 202 mcg/dl 04/29/24 08:10 % Saturation 21.7 % (20-50) 04/29/24 08:10 Unsat Iron Binding 158 ug/dL (112-347) 04/29/24 08:10 Ferritin 165 ng/mL (15-150) H 04/29/24 08:10 Total Bilirubin 0.3 mg/dL (0.15-1.2) 04/29/24 08:10 AST 7 U/L (0-32) 04/29/24 08:10 ALT < 5 U/L (0-33) 04/29/24 08:10 Alkaline Phosphatase 103 U/L (35-105) 04/29/24 08:10 Troponin T 5th Gen ng/L 140 ng/L (0-10) H* 04/29/24 23:17 Troponin T Baseline 157 ng/L (0-10) H* 04/29/24 08:10 Troponin T 120 Minute 164.9 ng/L (0-10) H 04/29/24 10:10 Delta Troponin T 7.9 ABS# (0-10) 04/29/24 10:10 Troponin T Hi Sens 6Hr 158.4 ng/L (0-10) H 04/29/24 14:19 Troponin T Hi Sens 6Hr Delta 1.4 ng/L (0-12) 04/29/24 14:19 Total Protein 5.6 g/dL (6.6-8.7) L 04/29/24 08:10 Albumin 3.3 g/dL (3.5-5.2) L 04/29/24 08:10 Globulin 2.3 g/dL (1.3-4.6) 04/29/24 08:10 Vitals Last Vital Signs Temp 98.3 F 05/03/24 00:00 Pulse 66 05/03/24 05:32 Resp 18 05/03/24 04:00 BP 139/87 05/03/24 04:00 Pulse Ox 92 05/03/24 04:00 O2 Del Method Nasal Cannula 05/03/24 04:00 O2 Flow Rate 2 05/02/24 08:00 Discharge Plan Discharge Patient Disposition: Xfer SNF Condition: Stable Prescriptions: New atorvastatin 40 mg Tablet 80 mg PO BEDTIME Qty: 60 0RF Continued (DME) walker with seat and brakes See Rx Instructions .Route .MEDSUPPLY Qty: 1 0RF Rx Instructions: As directed (DME) InPen (for Humalog) Insulin Pen See Rx Instructions .Route Qty: 150 0RF Rx Instructions: qid to inject insulin (DME) diabetic shoes and inserts See Rx Instructions .Route .MEDSUPPLY Qty: 1 0RF Rx Instructions: As directed (DME) lancets [BD Ultra Fine Lancets] 33 gauge misc See Rx Instructions .Route Qty: 100 1RF Rx Instructions: As directed (DME) insulin syringe-needle U-100 [BD Veo Insulin Syringe UF] 1/2 mL 31 gauge x 64 syringe See Rx Instructions .ROUTE .MEDSUPPLY Qty: 100 2RF Rx Instructions: As directed pantoprazole 40 mg tablet,delayed release (DR/EC) 40 mg PO QAM hydrocodone-acetaminophen 10-325 mg tablet 1 tab PO Q6H PRN (Reason: Pain, Moderate) Ozempic 0.25 mg or 0.5 mg (2 mg/3 mL) pen injector 0.5 mg SUBCUT Q7D tamsulosin 0.4 mg capsule 0.4 mg PO BEDTIME@22 ropinirole 0.5 mg tablet 0.5 mg PO BEDTIME@22 Qty: 30 2RF (DME) oxygen tubing See Rx Instructions .Route .MEDSUPPLY Qty: 1 0RF Rx Instructions: [facility] [place] [place] RIGHT See Rx Instructions .Route .MEDSUPPLY Qty: 1 0RF Rx Instructions: [place] [place]-chair with foot rest See Rx Instructions .Route .MEDSUPPLY Qty: 1 0RF Rx Instructions: As directed by HOME levothyroxine 25 mcg capsule 25 mcg PO QAM trazodone 50 mg tablet 50 mg PO BEDTIME (DME) Accu-Chek Guide test strips Strip See Rx Instructions .Route Qty: 100 5RF Rx Instructions: As directed; to test 5 x daily (DME) Incontinence Supplies See Rx Instructions .Route .MEDSUPPLY Qty: 1 0RF Rx Instructions: As directed calcium carbonate [Tums] 200 mg calcium (500 mg) Tablet,Chewable 1,000 mg PO DAILY PRN (Reason: Stomach Upset) nitroglycerin [Nitrostat] 0.4 mg Tablet, Sublingual 0.4 mg SUBLINGUAL Q5M PRN (Reason: Chest Pain) Rx Instructions: do not exceed 3 doses per episode potassium chloride 10 mEq tablet extended release 10 meq PO DAILY@07 cholecalciferol (vitamin D3) 1,250 mcg (50,000 unit) capsule 50,000 unit PO Q7D Rx Instructions: Takes on Sat bupropion HCl 200 mg tablet sustained-release 12 hr 200 mg PO BID insulin lispro [Humalog KwikPen Insulin] 100 unit/mL insulin pen 29 sliding scale dose SUBCUT TID ranolazine 500 mg Tablet Extended Release 12 Hr 500 mg PO BID Qty: 60 0RF isosorbide mononitrate 60 mg tablet extended release 24 hr 60 mg PO DAILY insulin glargine [Lantus Solostar U-100 Insulin] 100 unit/mL (3 mL) insulin pen 32 unit SUBCUT QAM acetaminophen 650 mg Tablet Extended Release 1,300 mg PO Q8H PRN (Reason: Pain) magnesium hydroxide [Milk of Magnesia] 400 mg/5 mL Suspension 30 ml PO DAILY PRN (Reason: Constipation) aspirin 81 mg Tablet,Delayed Release (Dr/Ec) 81 mg PO DAILY@07 Qty: 60 0RF Brilinta 90 mg tablet 90 mg PO BID@, Qty: 120 0RF metoprolol tartrate 50 mg tablet 50 mg PO BID Qty: 60 3RF Rx Instructions: Hold if heart rate below 60 or blood pressure below 90/60 phenazopyridine [Pyridium] 100 mg tablet 200 mg PO TID PRN (Reason: dysuria) Qty: 60 0RF bumetanide 2 mg tablet 2 mg PO DAILY Qty: 60 3RF Discontinued atorvastatin 40 mg tablet 40 mg PO BEDTIME Discharge Orders: Discharge Order (Routine); Ordered 05/03/24 Ordered By: Flo Villarreal Referrals: Niko Jerez MD [Primary Care Provider] - 4-7 days Farrah Smith FNP [Nurse Practitioner] - 4-7 days (Angiogram) Discharge Diet: Cardiac and Diabetic Discharge Activity: Increase activity as tolerated Patient Instructions: Coronary Angioplasty (DC) Activity Restrictions/Additional Instructions: Take all medicine as prescribed Follow-up with cardiology clinic next week, primary care provider in 3 to 5 days Return for any concerns NICOLE HUTCHINSON Monday of next week Cardiology to sign off on discharge prior to patient leaving Discharge Attestations Time Spent in Discharge Care*: greater than 30 min Status at Discharge: Cognitive status at discharge: cognitively intact , Behavioral status at discharge: cooperative , Quality Metrics Clinical Quality Measures [ Acute Myocardial Infaction { Clinical Trial Participant: No; Contraindication to aspirin: None; Aspirin prescribed; Contraindication to statin: None; Statin prescribed; Contraindication to PCI: None; PCI performed;}] Coding Level of Care Code 36716 Total time (in minutes) for Discharge: 37 Diagnoses Non-ST elevation NE (NSTEMI) I21.4 Elevated troponin I level R79.89 Acute on chronic systolic congestive heart failure I50.23 Heart failure chronicity: acute on chronic Heart failure type: systolic CKD (chronic kidney disease) N18.9 Chronic kidney disease stage: stage 3 (moderate) Edema R60.9
[2024-05-03 07:39] VITALS: BP 122/64; PULSE 71; RESP 12; TEMP 36.6; O2SAT 97
[2024-05-03 07:51] VITALS: BP 122/64; PULSE 74; RESP 13; O2SAT 96
--- NOTE | 2024-05-03 07:59 | PC.SOCIAL ---
IMM Update Pg. 2 of IMM updated. Copy provided at bedside.
[2024-05-03] MEDS: metoprolol tartrate 50 mg Tablet PO (08:26)
[2024-05-03] MEDS: isosorbide mononitrate ER 60 mg Tablet PO (08:27)
[2024-05-03] MEDS: ranolazine (12HR) 500 mg Tablet PO (08:27)
[2024-05-03] MEDS: insulin lispro 100 unit/1 mL SUBCUT (08:27)
[2024-05-03] MEDS: buPROPion SR (12 HR) 100 mg Tablet 200 MG PO (08:27)
[2024-05-03] MEDS: pantoprazole DR 40 mg Tablet PO (08:28)
--- NOTE | 2024-05-03 09:24 | PC.NURSE ---
Report is called to DEANGELO Shaw at [facility].
[2024-05-03 09:30] VITALS: BP 122/64; PULSE 74; RESP 13; O2SAT 96
--- NOTE | 2024-05-03 11:16 | PC.NURSE ---
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
--- NOTE | 2024-05-03 14:37 | P.PN_ITS ---
Subjective 2 Subjective: Patient doing well s/p PCI to mid RCA with drug-eluting stent for severe in- stent restenosis and status post balloon angioplasty to distal left circumflex for severe in-stent restenosis. Good angiographic result with ERICK-3 flow was noted at end of the case. Her right groin site is clean dry intact soft no evidence of hematoma or pseudoaneurysm. She denies chest pain or shortness of breath. Creatinine stable. She will be discharged today on aspirin and Brilinta. Medications: Reviewed: Yes Vitals/I&O/Wt Last Vital Signs Temp 97.8 F 05/03/24 07:39 Pulse 74 05/03/24 09:30 Resp 13 05/03/24 09:30 BP 122/64 05/03/24 09:30 Pulse Ox 96 05/03/24 09:30 O2 Del Method Nasal Cannula 05/03/24 07:39 O2 Flow Rate 2 05/02/24 08:00 05/02/24 05/03/24 05/03/24 22:59 06:59 14:59 Intake Total 480.003 / 1171.670 240 / 1411.670 120 / 120 Balance 480.003 / 1171.670 240 / 1411.670 120 / 120 Weight last 48 hrs Weight 252 lb 12.8 oz Weight 254 lb 3.2 oz Physical Exam 2 Narrative: General: No apparent distress, healthy appearing, well nourished Muskuloskeletal: weakness bilateral lower extremities, chronic Respiratory: Normal respiratory effort, clear to auscultation bilaterally throughout all lung [place], no use of accessory muscles Cardio: No JVD, regular rate, regular rhythm, S1 S2 normal, no murmurs, peripheral pulses 2+ Radial and PT palpated bilaterally Extremities: Full ROM, normal, normal capillary refill, no cyanosis or edema Neuro: Alert and oriented x4, no focal motor deficits Psych: Affect normal, denies suicidal ideation, mental status grossly normal Skin: Right groin puncture site clean dry intact soft no swelling or evidence of hematoma Data 05/03/24 04:12 05/03/24 04:12 A&P Assessment and plan (1) Non-ST elevation [place] (NSTEMI): Status post drug-eluting stent to mid RCA and balloon angioplasty to left circumflex for severe in-stent restenosis, continue aspirin and statin Brilinta. Will see in the clinic in approximately 2 weeks. Discussed with patient no heavy lifting more than a gallon of milk as well as going up or down steps for 3 days. No driving for 3 days. Monitor for and report signs or symptoms of bleeding. Monitor for and report s/s of infection such as fever 101 or greater, swelling, redness or pain to the groin. (2) Elevated troponin I level: Post PCI now. (3) CHF (congestive heart failure): Well compensated. Qualifiers: Heart failure chronicity: acute on chronic Heart failure type: systolic Qualified Code(s): I50.23 - Acute on chronic systolic (congestive) heart failure (4) CKD (chronic kidney disease): Stable. Qualifiers: Chronic kidney disease stage: stage 3 (moderate) (5) Edema: Stable, chronic. Plan As stated above Attestations 2 Medical Necessity Statement*: Patient require continuation hospitalization for above defined care. Coding Level of Care Code Acute Code for [facility] Fwd Diagnoses Non-ST elevation [place] (NSTEMI) I21.4 Elevated troponin I level R79.89 Acute on chronic systolic congestive heart failure I50.23 Heart failure chronicity: acute on chronic Heart failure type: systolic CKD (chronic kidney disease) N18.9 Chronic kidney disease stage: stage 3 (moderate) Edema R60.9
== END 2024-05-03 11:17 | disposition skilled nursing facility (03) | DRG 321 ==
LOC: ER 07:39 → ICU 09:40 → CSU 16:32
PROVIDERS: Internal Medicine; Internal Medicine Cardiovascular Disease; Admitting Provider Internal Medicine; Emergency Provider Family Medicine; PCP Internal Medicine; Visit Provider Internal Medicine
PROC: 027034Z Dilation of Coronary Artery, One Artery with Drug-eluting Intraluminal Device, Percutaneous Approach (ICD-10-PCS; principal; 2024-05-02 05:55)
PROC: 027034Z Dilation of Coronary Artery, One Artery with Drug-eluting Intraluminal Device, Percutaneous Approach (ICD-10-PCS; 2024-05-02 05:55)
DX: T82.855A Stenosis of coronary artery stent, initial encounter (principal); I21.4 Non-ST elevation (NSTEMI) myocardial infarction; I13.0 Hypertensive heart and chronic kidney disease with heart failure and stage 1 through stage 4 chronic kidney disease, or unspecified chronic kidney disease; I50.22 Chronic systolic (congestive) heart failure; Z68.41 Body mass index [BMI] 40.0-44.9, adult; D64.9 Anemia, unspecified; Y71.1 Therapeutic (nonsurgical) and rehabilitative cardiovascular devices associated with adverse incidents; N18.31 Chronic kidney disease, stage 3a; E11.22 Type 2 diabetes mellitus with diabetic chronic kidney disease; Z79.4 Long term (current) use of insulin; Z79.85 Long-term (current) use of injectable non-insulin antidiabetic drugs; I25.10 Atherosclerotic heart disease of native coronary artery without angina pectoris; E78.00 Pure hypercholesterolemia, unspecified; E11.69 Type 2 diabetes mellitus with other specified complication; Z79.82 Long term (current) use of aspirin; Z79.891 Long term (current) use of opiate analgesic; E66.01 Morbid (severe) obesity due to excess calories; G25.81 Restless legs syndrome; K21.9 Gastro-esophageal reflux disease without esophagitis; G47.33 Obstructive sleep apnea (adult) (pediatric); Z86.73 Personal history of transient ischemic attack (TIA), and cerebral infarction without residual deficits; Z86.711 Personal history of pulmonary embolism; G89.29 Other chronic pain; I25.2 Old myocardial infarction
CPT/HCPCS: 36415; 36416; 71045; 80048; 80053; 82728; 82962; 83540; 83550; 83735; 84484; 85025; 85347; 85730; 92920; 93005; 93308; 93454; 96365; 96372; 96374; 96375; 96376; 99152; 99153; 99285; C1725; C1760; C1769; C1874; C1887; C1894; C9600; G0269; J1200; J1644; J1815; J1940; J2250; J3010; J3490; J7030; J7050; Q9967

== ENCOUNTER 2024-07-22 11:53 | Inpatient (IN) | payer OTHER, MEDICAID, SELFPAY ==
[2024-07-22] VITALS (19 sets, daily range): BP systolic 117–158; BP diastolic 58–80; PULSE 69–83; RESP 16–26; TEMP 36.5; O2SAT 90–100; BMI 38.9
--- NOTE | 2024-07-22 11:58 | XR_ITS ---
WS: [id number] XR chest 1V portable [id number] REASON FOR EXAM: dyspnea/cough FINDINGS: There is significant cardiomegaly with multiple coronary artery stents. Cardiac contour suggest signi ficant enlargement of the right ventricle. Compared to the previous examination of 04/29/2024 there is now a focal opacity in the periphery of t he left mid lung adjacent to the pleura. This shape suggests it may possibly represent overlying nicolle fact. No findings of pulmonary edema. XR/XR chest 1V portable [id number] IMPRESSION: Significant cardiomegaly as above. Focal right lung opacity as above. Recommend repeat chest x-ray with better ins piration and check for overlying artifact.
--- NOTE | 2024-07-22 12:20 | PC.PHAR ---
Pt is from [facility]
[2024-07-22 12:31] LABS: Basophils % 0.4 %; Eosinophils # 0.6 10^3/uL (0.0-0.8); Eosinophils % 6.8 %; Hematocrit 29.1 % (36-47); Lymphocytes # 1.8 10^3/uL (0.8-4.8); Lymphocytes % 22.2 %; Mean Corpuscular HGB Conc 30.9 g/dL (30-55); Mean Corpuscular Hemoglobin 27.8 pg (27-33); Mean Corpuscular Volume 89.8 fl (85-98); Mean Platelet Volume 9.5 fL (7.4-10.4); Monocytes # 0.6 10^3/uL (0.2-0.9); Monocytes % 7.1 %; Neutrophils # 5.09 10^3/uL (1.8-7.7); Neutrophils % 63.3 %; Nucleated Red Blood Cells % 0 %; Platelet Count 312 10^3/cmm (157-399); Red Blood Count 3.24 10^6/uL (3.85-5.65); Red Cell Distribution Width 14.2 % (12.1-15.1); White Blood Count 8.05 10^3/uL (3.29-11.43)
[2024-07-22 12:41] LABS: Alanine Aminotransferase 7 U/L (0-33); Albumin Level 3.3 g/dL (3.5-5.2); Alkaline Phosphatase 104 U/L (35-105); Blood Urea Nitrogen 27 mg/dL (8-23); Calcium 8.9 mg/dL (8.5-10.5); Carbon Dioxide 28 mmol/L (22-29); Chloride 100 mmol/L (98-107); Creatinine Clr Calc Pharmacy 47.5353; Globulin 2.6 g/dL (1.3-4.6); Glomerular Filtration Rate 38.2 mL/min (90-130); Glucose 92 mg/dL (65-115); Osmolality Calculated 291 mOsm/kg (285-295); Sodium 138 mmol/L (136-145); Total Bilirubin 0.4 mg/dL (0.15-1.2); Total Protein 5.9 g/dL (6.6-8.7)
[2024-07-22 12:43] LABS: Anion Gap 14.7 (5-19); Aspartate Amino Transferase 11 U/L (0-32); Potassium 4.7 mmol/L (3.5-5.1)
[2024-07-22 13:04] LABS: Bilirubin Urine Negative (Negative); Blood Urine 1+ (Negative); Glucose Urine UA Negative (Normal); Ketones Urine Negative (Negative); Leukocyte Esterase Urine 2+ (Negative); Nitrate Urine Negative (Negative); Protein Urine 2+ (Negative); Specific Gravity, Urine 1.015 (1.005-1.030); Urine Appearance Cloudy (CLEAR); Urine Color Yellow (Yellow); pH Urine 5.5 (5-7)
[2024-07-22 13:06] LABS: Add Urine Microscopic? YES; Bacteria Urine None Seen /hpf; Hyaline Casts Urine 12.41 /lpf; RBC Urine 0-2 /hpf (0-2); Squamous Epithelial Cell Urine 0-5 /hpf (0-5); WBC Urine >100 /hpf (0-5)
--- NOTE | 2024-07-22 13:11 | ED_ITS ---
HPI - SOB/Dyspnea 2 General: Chief Complaint: ER Hold Stated Complaint: SOB Time Seen by Provider: 07/22/24 11:58 History of Present Illness: HPI Narrative: 63-year-old female presents from the [facility] home with complaints of increasing shortness of breath. She states for months she has had flulike symptoms and difficulty breathing with in the last 2 days it has gotten much worse she has a productive cough she is uncertain whether or not she has a fever. She denies abdominal pain dysuria urgency or frequency. She normally states she uses oxygen 2 L at night is now requiring 2 L of oxygen during the day. Associated symptoms: Reports chest congestion; Deny abdominal pain, chest pain or fever(s) Related Data Home Medications Medication Instructions Recorded Confirmed tamsulosin 0.4 mg capsule 0.4 mg PO BEDTIME@22 01/06/23 07/22/24 calcium carbonate (Tums) 1,000 mg PO DAILY PRN Stomach Upset 01/18/23 07/22/24 cholecalciferol (vitamin D3) 1,250 50,000 unit PO Q7D 01/18/23 07/22/24 mcg (50,000 unit) capsule nitroglycerin 0.4 mg sublingual 0.4 mg sublingual Q5M PRN Chest 01/18/23 07/22/24 tablet (Nitrostat) Pain potassium chloride 10 mEq 10 meq PO DAILY@07 01/18/23 07/22/24 tablet,extended release levothyroxine 25 mcg capsule 25 mcg PO QAM 05/08/23 07/22/24 hydrocodone 10 mg-acetaminophen 1 tab PO Q6H PRN Pain, Moderate 09/07/23 07/22/24 325 mg tablet pantoprazole 40 mg tablet,delayed 40 mg PO QAM 09/07/23 07/22/24 release semaglutide 0.25 mg or 0.5 mg (2 0.5 mg SUBCUT Q7D 09/07/23 07/22/24 mg/3 mL) subcutaneous pen injector (Ozempic) trazodone 50 mg tablet 50 mg PO BEDTIME 09/07/23 07/22/24 bupropion HCl 200 mg tablet,12 hr 200 mg PO BID 09/14/23 07/22/24 sustained-release insulin lispro 100 unit/mL 29 sliding scale dose SUBCUT TID 09/14/23 07/22/24 subcutaneous pen (Humalog KwikPen (U-100) Insulin) acetaminophen 650 mg 1,300 mg PO Q8H PRN Pain 11/14/23 07/22/24 tablet,extended release insulin glargine 100 unit/mL (3 30 unit SUBCUT QAM 02/28/24 07/22/24 mL) subcutaneous pen (Lantus Solostar U-100 Insulin) isosorbide mononitrate 60 mg 60 mg PO DAILY 02/28/24 07/22/24 tablet,extended release 24 hr atorvastatin 80 mg tablet 80 mg PO BEDTIME 07/22/24 07/22/24 ondansetron HCl 4 mg tablet 4 mg PO Q4H PRN Nausea And Vomiting 07/22/24 07/22/24 phenazopyridine 100 mg tablet 200 mg PO Q8H PRN dysuria 07/22/24 07/22/24 (Pyridium) Previous Rx's Medication Instructions Recorded walker with seat and brakes #1 ea 03/26/20 insulin admin supplies (InPen (for #150 ea 10/04/21 Humalog) subcutaneous) diabetic shoes and inserts #1 ea 05/11/22 insulin syringe-needle U-100 1/2 #100 ea 09/23/22 mL 31 gauge x 15/64 (BD Veo Insulin Syringe Ultra-Fine) lancets 33 gauge (BD Ultra Fine #100 ea 09/23/22 Lancets) blood sugar diagnostic (Accu-Chek #100 ea 12/09/22 Guide test strips) ASO to RIGHT #1 ea 01/20/23 wheel-chair with foot rest #1 ea 01/20/23 oxygen tubing #1 ea 01/24/23 ropinirole 0.5 mg tablet 0.5 mg PO BEDTIME@ #30 tabs 01/24/23 Incontinence Supplies #1 ea 01/27/23 aspirin 81 mg tablet,delayed 81 mg PO DAILY@07 #60 tabs 11/23/23 release ticagrelor 90 mg tablet (Brilinta) 90 mg PO BID@, #120 tabs 11/23/23 ranolazine 500 mg tablet,extended 500 mg PO BID #60 tabs 12/22/23 release,12 hr bumetanide 2 mg tablet 2 mg PO DAILY #60 tabs 03/24/24 metoprolol tartrate 50 mg tablet 50 mg PO BID #60 tabs 03/24/24 Allergies Allergy/AdvReac Type Severity Reaction Status Date / Time hyoscyamine Allergy Severe ADR-Itching Verified 04/29/24 07:19 cefdinir Allergy Unknown Verified 05/21/24 15:37 ciprofloxacin [From Cipro] Allergy hives Verified 04/29/24 07:19 citalopram Allergy effects Verified 04/29/24 07:19 speach and memory clopidogrel [From Plavix] Allergy unk Verified 04/29/24 07:19 coconut Allergy Unknown Verified 04/29/24 07:19 ibuprofen Allergy RASH/ Verified 04/29/24 07:19 SWELLING famotidine AdvReac Mild itching Verified 04/29/24 07:19 esomeprazole [From Nexium] AdvReac Unknown Verified 04/29/24 07:19 Review of Systems 2 Const: Denies: fever(s) or chills Card: Denies: chest pain Resp: Reports: dyspnea, productive cough and chest congestion GI: Denies: abdominal pain : Denies: dysuria, urinary frequency or urinary urgency Musc: Denies: neck pain or back pain Skin/Breast: Denies: rash PFSH ED 2 PFSH: Medical History Non-ST elevation CT (NSTEMI) DM type 2 (diabetes mellitus, type 2) Unstable angina pectoris Acute kidney injury CHF (congestive heart failure) Chest pain Status post left heart catheterization (LHC) Groin hematoma Left ACL tear Fracture of fifth toe, left, closed Derangement of lateral meniscus of right knee Derangement of medial meniscus of right knee Chronic kidney disease (CKD) Lumbar stenosis with neurogenic claudication Inability to walk Renal failure Chronic cystitis with hematuria Inability to urinate CAD (coronary artery disease) Atherosclerotic heart disease of [place] coronary artery with other forms of angina pectoris Lower extremity weakness Elevated troponin Depression with anxiety Coronary artery disease due to type 2 diabetes mellitus Morbid obesity Generalized muscle weakness Type 2 diabetes mellitus with diabetic polyneuropathy Diabetes mellitus Small bowel strangulation Dyslipidemia Chronic cystitis Gross hematuria Osteoporosis Morbid obesity Constipation Migraine headache Bilateral lower extremity edema RLS (restless legs syndrome) GERD (gastroesophageal reflux disease) BETH (obstructive sleep apnea) CVA (cerebral vascular accident) HTN (hypertension) Pulmonary embolism, bilateral Opioid contract exists Long-term use of high-risk medication Chronic low back pain Surgical History Status post coronary artery stent placement Status post lumbar laminectomy H/O heart artery stent S/P hysterectomy S/P tonsillectomy and adenoidectomy S/P appendectomy S/P cholecystectomy Hx of total knee replacement History of partial surgical removal of colon Family History Grandfather Cancer Family/Other Myocardial infarct MOTHER, FATHER, BROTHER, SISTER Hypertension Diabetes Mother , at age 66 CAD (coronary artery disease) Father , at age 74 CAD (coronary artery disease) Sister CAD (coronary artery disease) Brother CAD (coronary artery disease) Other Stroke Denies family history of Anesthesia complication Bleeding disorder Social History Smoking and tobacco/nicotine status: never used tobacco/nicotine Alcohol intake: never Substance/Drug Use: current Substance/Drug use frequency: other Other substance/drug use details: smokes medical marijauna occasionally at night to help her sleep Lives independently: Yes Marital status: Current occupational status: disabled Current gender identity: Female Special vik needs: No Physical Exam 2 Const: GENERAL APPEARANCE: cooperative ORIENTATION/CONSCIOUSNESS: Yes awake HENMT: COMMON NORMALS: normocephalic, atraumatic and hearing grossly normal bilaterally HEAD & SCALP: normocephalic and atraumatic Resp: EFFORT & INSPECTION: Yes labored AUSCULTATION: rhonchi and wheezes Cardio: COMMON NORMALS: regular rate, regular rhythm and No murmurs present (Cardio) RATE: regular rate RHYTHM: regular rhythm GI: COMMON NORMALS: Soft to palpation and No hepatosplenomegaly present A USCULTATION: Yes normoactive bowel sounds PALPATION: Yes Soft to palpation, No Tenderness to palpation present (GI), No Guarding due to palpation present (GI) and Yes No hepatosplenomegaly present Extremity: COMMON NORMALS: normal to inspection, capillary refill normal, no clubbing, cyanosis or edema, no calf tenderness and no pedal edema Skin: COMMON NORMALS: no rashes or lesions noted GENERAL SKIN EXAM: no rashes or lesions noted Course 2 Vital Signs: Vital signs: Vital Signs Temperature 97.7 F 07/22/24 11:55 Pulse Rate 82 07/22/24 17:43 Respiratory Rate 22 H 07/22/24 17:43 Blood Pressure 158/62 07/22/24 17:43 Pulse Oximetry 94 07/22/24 17:43 Oxygen Delivery Me thod Nasal Cannula 07/22/24 17:43 Oxygen Flow Rate 2 07/22/24 17:43 MDM - SOB/Dyspnea Medical Decision Making Patient does have a left upper lobe pneumonia there are some fullness in the right perihilar area as well as cardiomegaly does not look to be in acute decompensated congestive heart failure she is requiring more oxygen now. Additionally she has cystitis. Started on Zosyn discussed with hospitalist orders written Medical Records I reviewed the patient's medical records. Lab Data I reviewed the patient's lab results. 07/22/24 12:12 07/22/24 12:12 Labs/Radiology: Radiology Impressions Chest X-Ray 07/22/24 11:58 IMPRESSION: Significant cardiomegaly as above. Focal right lung opacity as above. Recommend repeat chest x-ray with better inspiration and check for overlying artifact. Laboratory Results WBC 8.05 10^3/uL (3.29-11.43) 07/22/24 12:12 RBC 3.24 10^6/uL (3.85-5.65) L 07/22/24 12:12 Hgb 9.00 g/dL (11.27-16.99) L 07/22/24 12:12 Hct 29.1 % (36-47) L 07/22/24 12:12 MCV 89.8 fl (85-98) 07/22/24 12:12 MCH 27.8 pg (27-33) 07/22/24 12:12 MCHC 30.9 g/dL (30-55) 07/22/24 12:12 RDW 14.2 % (12.1-15.1) 07/22/24 12:12 Plt Count 312 10^3/cmm (157-399) 07/22/24 12:12 MPV 9.5 fL (7.4-10.4) 07/22/24 12:12 Neut % (Auto) 63.3 % 07/22/24 12:12 Lymph % (Auto) 22.2 % 07/22/24 12:12 [place] % (Auto) 7.1 % 07/22/24 12:12 Eos % (Auto) 6.8 % 07/22/24 12:12 Baso % (Auto) 0.4 % 07/22/24 12:12 Neut # (Auto) 5.09 10^3/uL (1.8-7.7) 07/22/24 12:12 Lymph # (Auto) 1.8 10^3/uL (0.8-4.8) 07/22/24 12:12 [place] # (Auto) 0.6 10^3/uL (0.2-0.9) 07/22/24 12:12 Eos # (Auto) 0.6 10^3/uL (0.0-0.8) 07/22/24 12:12 Baso # (Auto) 0.0 10^3/uL (0.0-0.1) 07/22/24 12:12 Nucleated RBC % (auto) 0 % 07/22/24 12:12 Nucleated RBCs # 0.0 /100WBC 07/22/24 12:12 Sodium 138 mmol/L (136-145) 07/22/24 12:12 Potassium 4.7 mmol/L (3.5-5.1) 07/22/24 12:12 Chloride 100 mmol/L (98-107) 07/22/24 12:12 Carbon Dioxide 28 mmol/L (22-29) 07/22/24 12:12 Anion Gap 14.7 (5-19) 07/22/24 12:12 BUN 27 mg/dL (8-23) H 07/22/24 12:12 Creatinine 1.4 mg/dL (0.5-0.9) H 07/22/24 12:12 GFR Calculation 38.2 mL/min (90-130) L 07/22/24 12:12 Glucose 92 mg/dL (65-115) 07/22/24 12:12 Calculated Osmolality 291 mOsm/kg (285-295) 07/22/24 12:12 Calcium 8.9 mg/dL (8.5-10.5) 07/22/24 12:12 Total Bilirubin 0.4 mg/dL (0.15-1.2) 07/22/24 12:12 AST 11 U/L (0-32) 07/22/24 12:12 ALT 7 U/L (0-33) 07/22/24 12:12 Alkaline Phosphatase 104 U/L (35-105) 07/22/24 12:12 Total Protein 5.9 g/dL (6.6-8.7) L 07/22/24 12:12 Albumin 3.3 g/dL (3.5-5.2) L 07/22/24 12:12 Globulin 2.6 g/dL (1.3-4.6) 07/22/24 12:12 Procalcitonin 0.17 ng/mL (0-0.5) 07/22/24 12:12 TSH 8.35 uIU/mL (0.27-4.20) H 07/22/24 12:12 Urine Color Yellow (Yellow) 07/22/24 12:54 Urine Appearance Cloudy (CLEAR) A 07/22/24 12:54 Urine pH 5.5 (5-7) 07/22/24 12:54 Ur Specific [place] 1.015 (1.005-1.030) 07/22/24 12:54 Urine Protein 2+ (Negative) A 07/22/24 12:54 Urine Glucose (UA) Negative (Normal) 07/22/24 12:54 Urine Ketones Negative (Negative) 07/22/24 12:54 Urine Blood 1+ (Negative) A 07/22/24 12:54 Urine Nitrate Negative (Negative) 07/22/24 12:54 Urine Bilirubin Negative (Negative) 07/22/24 12:54 Urine Urobilinogen 1.0 mg/dL (Negative) 07/22/24 12:54 Ur Leukocyte Esterase 2+ (Negative) A 07/22/24 12:54 Urine RBC 0-2 /hpf (0-2) 07/22/24 12:54 Urine WBC >100 /hpf (0-5) H 07/22/24 12:54 Ur Squamous Epith Cells 0-5 /hpf (0-5) 07/22/24 12:54 Amorphous Sediment Not Reportable 07/22/24 12:54 Urine Bacteria None seen /hpf (NONE) 07/22/24 12:54 Hyaline Casts 12.41 /lpf 07/22/24 12:54 Adenovirus (PCR) Not detected (NOT DETECT) 07/22/24 14:16 C. pneumoniae DNA (PCR) Not detected (NOT DETECT) 07/22/24 14:16 Coronavirus 229E (PCR) Not detected (NOT DETECT) 07/22/24 14:16 Human Metapneumovir PCR Not detected (NOT DETECT) 07/22/24 14:16 Influenza A (H1) PCR Not detected (NOT DETECT) 07/22/24 14:16 Influ A (H1/09) PCR Not detected (NOT DETECT) 07/22/24 14:16 Influenza A (H3) PCR Not detected (NOT DETECT) 07/22/24 14:16 Influenza Type A (PCR) Not detected (NOT DETECT) 07/22/24 14:16 Influenza Type B (PCR) Not detected (NOT DETECT) 07/22/24 14:16 M. pneumoniae (PCR) Not detected (NOT DETECT) 07/22/24 14:16 Parainfluenza 1 (PCR) Not detected (NOT DETECT) 07/22/24 14:16 Parainfluenza 2 (PCR) Not detected (NOT DETECT) 07/22/24 14:16 Parainfluenza 3 (PCR) Not detected (NOT DETECT) 07/22/24 14:16 Parainfluenza 4 (PCR) Not detected (NOT DETECT) 07/22/24 14:16 RSV Type A (PCR) Detected (NOT DETECT) A 07/22/24 14:16 RSV Type B (PCR) Not detected (NOT DETECT) 07/22/24 14:16 Entero/Rhino (PCR) Not detected (NOT DETECT) 07/22/24 14:16 SARS-CoV-2 (PCR) Not detected (NOT DETECT) 07/22/24 14:16 All radiology interpretation(s) finalized by discharge Discharge Plan Discharge Patient Disposition: Admitted As Inpatient Admit Provider: Ruthy Chang Clinical Impression: RSV bronchiolitis, Secondary pneumonia, History of CHF (congestive heart failure), Cystitis Condition: Stable Coding Level of Care Code ED 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
[2024-07-22 13:30] LABS: Add Urine Culture? Yes; UA Slide Review UA Slide Review Perf
[2024-07-22] MEDS: ipratropium-albuterol 3 mL Neb INHALATION ×2 (14:20→21:13)
[2024-07-22] MEDS: dexamethasone 10 mg/mL INJ IM (14:24)
--- NOTE | 2024-07-22 16:05 | USCV_ITS ---
Watson Bridges Age: 63 Gender: F : 1960 Exam Date: 07/22/2024 19:44 Ordering Phys: Ruthy Chang MD Technologist: PANFILO Exam Location: [facility] [place] Indication: SOB O2-dependent 2L, ER, CHF worsening. BP: 134 / 77 HR: 75 Rhythm: Sinus Technical Quality: Adequate MEASUREMENTS (Male / Female) Normal Values 2D ECHO LV Diastolic Diameter PLAX 6.0 cm 4.2 - 5.9 / 3.9 - 5.3 cm IVS Diastolic Thickness 1.3 cm 0.6 - 1.0 / 0.6 - 0.9 cm IVS Systolic Thickness 1.9 cm LVPW Diastolic Thickness 1.1 cm 0.6 - 1.0 / 0.6 - 0.9 cm LVPW Systolic Thickness 1.3 cm LVOT Diameter 1.8 cm LV Ejection Fraction 2D Teich 45.1 % LV Ejection Fraction MOD 4C 24.6 % LV Ejection Fraction MOD 2C 29.4 % LV Ejection Fraction 2C AL 30.4 % LA Diameter 4.9 cm Aorta at Sinotubular Diameter 3.0 cm IVC Diameter 2.0 cm M-MODE LA Ao Ratio MM 1.5 AV Cusp Separation MM 1.6 cm DOPPLER AV Peak Velocity 144.0 cm/s LVOT Peak Velocity 74.0 cm/s AV Area Cont Eq vti 1.3 cm squared AV Area Cont Eq pk 1.4 cm squared MV Peak Velocity 183.0 cm/s MV Area PHT 4.9 cm squared Mitral E to A Ratio 1.6 TR Peak Velocity 219.0 cm/s TR Peak Gradient 19.2 mmHg TV Peak E Velocity 58.0 cm/s PV Peak Velocity 94.0 cm/s FINDINGS Left Ventricle Diffuse hypokinesia left ventriculae with an ejection fraction of around 40% (visual)..Grade I/IV diastolic dysfunction (abnormal relaxation filling pattern), normal to mildly elevated filling pressures. Mild left ventricular hypertrophy. Right Ventricle The right ventricle is normal in size and function. Right Atrium The right atrium is normal in size. Left Atrium Moderately increased left atrial size. Mitral Valve Moderate mitral annular calcification. Moderate mitral valve regurgitation. Aortic Valve Thickened aortic valve. Mild aortic valve calcification. Tricuspid Valve No gross abnormalities noted Pulmonic Valve Pulmonic valve not well visualized. Pericardium No pericardial effusion. Aorta Normal aortic annulus size. IVC Normal inferior vena cava. CONCLUSIONS Diffuse hypokinesia left ventriculae with an ejection fraction of around 40%..Grade I/IV diastolic dysfunction (abnormal relaxation filling pattern), normal to mildly elevated filling pressures. Mild left ventricular hypertrophy. Moderately increased left atrial size. Moderate mitral annular calcification. Moderate mitral valve regurgitation. Thickened aortic valve. Mild aortic valve calcification. There is no pericardial effusion. Compared to the study from 04/30, there may be a significant change in the LVEF. Dr Denisse Rodriguez MD [facility] (Electronically Signed) Final Date: 22 July 2024 20:51 S
--- NOTE | 2024-07-22 16:12 | P.HP_ITS ---
Providers/Chief Complaint 2 Primary Care Provider: Niko Jerez MD Chief Complaint: SOB History of Present Illness Watson Bridges is a 63 year old female medical history of NSTEMI, type 2 diabetes mellitus, unstable angina, CHF, bilateral lower extremity weakness, bilateral lower extremity edema, hypertension, stroke, obstructive sleep apnea, bilateral pulmonary embolism in the past presented to the hospital with complaint of shortness of breath. She states this has been going on for months however acutely in the last 2 days her shortness of breath has worsened. She is also starting to cough. Bringing up dark yellow sputum which can also be seen on tissue at the bedside. She is not requiring oxygen and at baseline does not use any. She states she has been bedbound for over a year at this point. She lives at a long-term. Denies a fever denies nausea vomiting diarrhea chest pain. She is on insulin for her diabetes. Her most recent hospital admission shows that she was here with NSTEMI and there was concern of heart failure admission and she was given IV diuretics. Due to GIANCARLO angiogram was held off until creatinine stabilized. She did have an angiogram done on 05/02 and a drug-eluting stent was placed into RCA. She also had left circumflex ballooned. She was on 2 L of nasal cannula which apparently she uses intermittently at the long-term. She was to follow-up with cardiology as an outpatient. It seems patient may not have been using her oxygen at the long-term because she states that she was not on any before she came in. Now she is on 2 L. Medications/Allergies Home Medications Medication Instructions Recorded Confirmed Last Taken Type walker with seat and brakes #1 ea 03/26/20 07/22/24 08/08/20 22:30 Rx insulin admin supplies (InPen (for #150 ea 10/04/21 07/22/24 Unknown Rx Humalog) subcutaneous) diabetic shoes and inserts #1 ea 05/11/22 07/22/24 Unknown Rx insulin syringe-needle U-100 /2 #100 ea 09/23/22 07/22/24 Unknown Rx mL 31 gauge x 15/64 (BD Veo Insulin Syringe Ultra-Fine) lancets 33 gauge (BD Ultra Fine #100 ea 09/23/22 07/22/24 Unknown Rx Lancets) blood sugar diagnostic (Accu-Chek #100 ea 12/09/22 07/22/24 Unknown Rx Guide test strips) tamsulosin 0.4 mg capsule 0.4 mg PO BEDTIME@22 01/06/23 07/22/24 07/21/24 History calcium carbonate (Tums) 1,000 mg PO DAILY PRN Stomach Upset 01/18/23 07/22/24 09/14/23 History cholecalciferol (vitamin D3) 1,250 50,000 unit PO Q7D 01/18/23 07/22/24 07/20/24 History mcg (50,000 unit) capsule nitroglycerin 0.4 mg sublingual 0.4 mg sublingual Q5M PRN Chest 01/18/23 07/22/24 Unknown History tablet (Nitrostat) Pain potassium chloride 10 mEq 10 meq PO DAILY@01/18/23 07/22/24 07/22/24 History tablet,extended release ASO to RIGHT #1 ea 01/20/23 07/22/24 Unknown Rx wheel-chair with foot rest #1 ea 01/20/23 07/22/24 Unknown Rx oxygen tubing #1 ea 01/24/23 07/22/24 Unknown Rx ropinirole 0.5 mg tablet 0.5 mg PO BEDTIME@22 #30 tabs 01/24/23 07/22/24 07/21/24 Rx Incontinence Supplies #1 ea 01/27/23 07/22/24 Unknown Rx levothyroxine 25 mcg capsule 25 mcg PO QAM 05/08/23 07/22/24 07/22/24 History hydrocodone 10 mg-acetaminophen 1 tab PO Q6H PRN Pain, Moderate 09/07/23 07/22/24 07/21/24 History 325 mg tablet pantoprazole 40 mg tablet,delayed 40 mg PO QAM 09/07/23 07/22/24 07/22/24 History release semaglutide 0.25 mg or 0.5 mg (2 0.5 mg SUBCUT Q7D 09/07/23 07/22/24 07/20/24 History mg/3 mL) subcutaneous pen injector (Ozempic) trazodone 50 mg tablet 50 mg PO BEDTIME 09/07/23 07/22/24 07/21/24 History bupropion HCl 200 mg tablet,12 hr 200 mg PO BID 09/14/23 07/22/24 07/22/24 History sustained-release insulin lispro 100 unit/mL 29 sliding scale dose SUBCUT TID 09/14/23 07/22/24 07/22/24 History subcutaneous pen (Humalog KwikPen (U-100) Insulin) acetaminophen 650 mg 1,300 mg PO Q8H PRN Pain 11/14/23 07/22/24 07/10/24 History tablet,extended release aspirin 81 mg tablet,delayed 81 mg PO DAILY@07 #60 tabs 11/23/23 07/22/24 07/22/24 Rx release ticagrelor 90 mg tablet (Brilinta) 90 mg PO BID@07,22 #120 tabs 11/23/23 07/22/24 07/22/24 Rx ranolazine 500 mg tablet,extended 500 mg PO BID #60 tabs 12/22/23 07/22/24 07/22/24 Rx release,12 hr insulin glargine 100 unit/mL (3 30 unit SUBCUT QAM 02/28/24 07/22/24 07/22/24 History mL) subcutaneous pen (Lantus Solostar U-100 Insulin) isosorbide mononitrate 60 mg 60 mg PO DAILY 02/28/24 07/22/24 07/22/24 History tablet,extended release 24 hr bumetanide 2 mg tablet 2 mg PO DAILY #60 tabs 03/24/24 07/22/24 07/22/24 Rx metoprolol tartrate 50 mg tablet 50 mg PO BID #60 tabs 03/24/24 07/22/24 07/22/24 Rx atorvastatin 80 mg tablet 80 mg PO BEDTIME 07/22/24 07/22/24 07/21/24 History ondansetron HCl 4 mg tablet 4 mg PO Q4H PRN Nausea And Vomiting 07/22/24 07/22/24 07/21/24 History phenazopyridine 100 mg tablet 200 mg PO Q8H PRN dysuria 07/22/24 07/22/24 Unknown History (Pyridium) Allergies Allergy/AdvReac Type Severity Reaction Status Date / Time hyoscyamine Allergy Severe ADR-Itching Verified 04/29/24 07:19 cefdinir Allergy Unknown Verified 05/21/24 15:37 ciprofloxacin [From Cipro] Allergy hives Verified 04/29/24 07:19 citalopram Allergy effects Verified 04/29/24 07:19 speach and memory clopidogrel [From Plavix] Allergy unk Verified 04/29/24 07:19 coconut Allergy Unknown Verified 04/29/24 07:19 ibuprofen Allergy RASH/ Verified 04/29/24 07:19 SWELLING famotidine AdvReac Mild itching Verified 04/29/24 07:19 esomeprazole [From Nexium] AdvReac Unknown Verified 04/29/24 07:19 PFSH Acute 2 PFSH: Medical History Non-ST elevation [place] (NSTEMI) DM type 2 (diabetes mellitus, type 2) Unstable angina pectoris Acute kidney injury CHF (congestive heart failure) Chest pain Status post left heart catheterization (LHC) Groin hematoma Left ACL tear Fracture of fifth toe, left, closed Derangement of lateral meniscus of right knee Derangement of medial meniscus of right knee Chronic kidney disease (CKD) Lumbar stenosis with neurogenic claudication Inability to walk Renal failure Chronic cystitis with hematuria Inability to urinate CAD (coronary artery disease) Atherosclerotic heart disease of [place] coronary artery with other forms of angina pectoris Lower extremity weakness Elevated troponin Depression with anxiety Coronary artery disease due to type 2 diabetes mellitus Morbid obesity Generalized muscle weakness Type 2 diabetes mellitus with diabetic polyneuropathy Diabetes mellitus Small bowel strangulation Dyslipidemia Chronic cystitis Gross hematuria Osteoporosis Morbid obesity Constipation Migraine headache Bilateral lower extremity edema RLS (restless legs syndrome) GERD (gastroesophageal reflux disease) BETH (obstructive sleep apnea) CVA (cerebral vascular accident) HTN (hypertension) Pulmonary embolism, bilateral Opioid contract exists Long-term use of high-risk medication Chronic low back pain Surgical History Status post coronary artery stent placement Status post lumbar laminectomy H/O heart artery stent S/P hysterectomy S/P tonsillectomy and adenoidectomy S/P appendectomy S/P cholecystectomy Hx of total knee replacement History of partial surgical removal of colon Family History Grandfather Cancer Family/Other Myocardial infarct MOTHER, FATHER, BROTHER, SISTER Hypertension Diabetes Mother , at age 66 CAD (coronary artery disease) Father , at age 74 CAD (coronary artery disease) Sister CAD (coronary artery disease) Brother CAD (coronary artery disease) Other Stroke Denies family history of Anesthesia complication Bleeding disorder Social History Smoking and tobacco/nicotine status: never used tobacco/nicotine Alcohol intake: never Substance/Drug Use: current Substance/Drug use frequency: other Other substance/drug use details: smokes medical marijauna occasionally at night to help her sleep Lives independently: Yes Marital status: Current occupational status: disabled Current gender identity: Female Special vik needs: No Vitals/I&O/Wt Last Vital Signs Temp 97.7 F 07/22/24 11:55 Pulse 76 07/22/24 15:22 Resp 20 H 07/22/24 15:22 BP 133/80 07/22/24 15:22 Pulse Ox 96 07/22/24 15:22 O2 Del Method Nasal Cannula 07/22/24 15:22 O2 Flow Rate 2 07/22/24 15:22 Weight last 48 hrs Weight 99.79 kg Physical Exam 2 Narrative: General: Alert oriented x3, patient seen sitting up in bed appearing somewhat in distress. Does have conversational dyspnea. She also states that she has been stuttering for a long time. On 2 L nasal cannula saturating 95%. Not showing any active respiratory distress however overall appears to be sick. HEENT: Normocephalic, atraumatic, EOMI, Cardio: Regular rate rhythm, normal S1-S2, difficult to auscultate for murmurs or gallops secondary to large body habitus, difficult to check for JVD due to large neck. Respiratory: Crackles bilaterally at bases with diffuse rhonchi. GI: Abdomen soft, nontender, nondistended, bowel sounds + Extremities: Generalized edema bilateral lower extremities appears to be chronic. Data 07/23/24 04:58 07/23/24 04:58 A&P Assessment and plan (1) CHF (congestive heart failure): Qualifiers: Heart failure chronicity: acute on chronic Heart failure type: systolic Qualified Code(s): I50.23 - Acute on chronic systolic (congestive) heart failure (2) DM type 2 (diabetes mellitus, type 2): Qualifiers: Diabetes mellitus residential insulin use: without long term care administrator use Diabetes mellitus complication status: without complication Qualified Code(s): E11.9 - Type 2 diabetes mellitus without complications (3) Morbid obesity: (4) GERD (gastroesophageal reflux disease): (5) Chronic kidney disease (CKD): Qualifiers: Chronic kidney disease stage: stage 3 (moderate) Chronic kidney disease stage 3 subtype: stage 3a (GFR 45-59) Qualified Code(s): N18.31 - Chronic kidney disease, stage 3a (6) UTI (urinary tract infection): Qualifiers: Urinary tract infection type: site unspecified Hematuria presence: with hematuria Qualified Code(s): N39.0 - Urinary tract infection, site not specified; R31.9 - Hematuria, unspecified (7) Cough: (8) Severe obstructive sleep apnea: (9) Generalized weakness: (10) Goals of care, counseling/discussion: Plan #Acute on chronic congestive heart failure #Cough, SOB most likely 2/2 to above #Recent NSTEMI status post PCI with JORDIN x 2. #CAD #UTI #Type 2 DM insulin dependent #B/L LE weakness #HTN #Hx of Stroke #BETH #Hypothyroidism -Patient appears to be in heart failure at this time with worsening shortness of breath requirement of oxygen and at times has gurgling sounds and sounds very congested. Upper respiratory virus cannot be ruled out. Respiratory viral panel has been ordered. I will treat this as heart failure at this time. ? Will start IV Lasix 60 IV twice daily ? Check electrolytes daily check BMP. ? Last echo in April showed EF of 41%. Will recheck echo as I suspect worsening secondary to patient's clinical status. She has bilateral crackles at bases and generalized anasarca. ? Denies any chest pain. ? Denies a fever at the long-term. Is bringing up phlegm.That is dark yellow. ? Chest x-ray shows focal left lung opacity. Most likely consistent with pneumonia given clinical picture. ? She did receive a dose of Zosyn in the ER. Will place on ceftriaxone azithromycin IV ? Check procalcitonin ? Continue sliding scale insulin moderate dose intensity. Continue Lantus 30 units in the morning. ? Continue Brilinta,, ranolazine, levothyroxine, atorvastatin. -I will check chest CT without contrast ? Urinalysis abnormal in the ER. Suspect UTI. Will check urine culture - Ceftriaxone to cover for UTI - Will obtain baseline EKG Full Code She would like to sign a DPOA in her nephew Tony's name. Will contact social media marketing manager. Cardiac consistent carb diet Goals of care discussion done: pt wants to be full code and wants to sign DPOA. ? Attestations 2 Medical Necessity Statement*: > 2 midnight stay for mgmt of HF, PNA, UTI, Expect > 72 hours given patient's clinical picture. Diagnoses Acute on chronic systolic congestive heart failure I50.23 Heart failure chronicity: acute on chronic Heart failure type: systolic Type 2 diabetes mellitus without complication, without long-term current use of insulin E11.9 Diabetes mellitus residential insulin use: without long term care administrator use Diabetes mellitus complication status: without complication Morbid obesity E66.01 GERD (gastroesophageal reflux disease) K21.9 Stage 3a chronic kidney disease N18.31 Chronic kidney disease stage: stage 3 (moderate) Chronic kidney disease stage 3 subtype: stage 3a (GFR 45-59) Urinary tract infection with hematuria, site unspecified N39.0; R31.9 Urinary tract infection type: site unspecified Hematuria presence: with hematuria Cough R05.9 Severe obstructive sleep apnea G47.33 Generalized weakness R53.1 Goals of care, counseling/discussion Z71.89
[2024-07-22 16:15] LABS: Adenovirus Not Detected (NOT DETECT); Chlamydia Pneumoniae Not Detected (NOT DETECT); Coronavirus 229E,HKU1,NL63,OC4 Not Detected (NOT DETECT); Human Metapneumovirus Not Detected (NOT DETECT); Human Rhinovirus/Enterovirus Not Detected (NOT DETECT); Influenza A Not Detected (NOT DETECT); Influenza A H1 Not Detected (NOT DETECT); Influenza A H1-2009 Not Detected (NOT DETECT); Influenza A H3 Not Detected (NOT DETECT); Influenza B Not Detected (NOT DETECT); Mycoplasma Pneumoniae Not Detected (NOT DETECT); Parainfluenza Virus Type 1 Not Detected (NOT DETECT); Parainfluenza Virus Type 2 Not Detected (NOT DETECT); Parainfluenza Virus Type 3 Not Detected (NOT DETECT); Parainfluenza Virus Type 4 Not Detected (NOT DETECT); Respiratory Syncytial Virus B Not Detected (NOT DETECT); SARS-COV-2 Not Detected (NOT DETECT)
[2024-07-22 16:18] LABS: Respiratory Syncytial Virus A Detected (NOT DETECT)
[2024-07-22 17:01] LABS: Procalcitonin 0.17 ng/mL (0-0.5); Thyroid Stimulating Hormone 8.35 uIU/mL (0.27-4.20)
[2024-07-22] MEDS: methylPREDNISolone sod succ 40 mg/mL INJ IVP (17:13)
[2024-07-22] MEDS: heparin 5,000 unit/mL INJ 1 mL 5000 UNIT SUBCUT (17:17)
[2024-07-22] MEDS: FUROsemide 10 mg/mL SDV 10mL 60 MG IVP (17:17)
[2024-07-22] MEDS: cefTRIAXone 1,000 mg SDV 1000 MG IVP (17:19)
[2024-07-22] MEDS: AZITHROMYCIN ADD-Vantage 500 MG in 0.9% NaCl ADD-Vantage 250 ML 250 MG IV (17:22)
[2024-07-22] MEDS: metoprolol tartrate 50 mg Tablet PO (18:07)
[2024-07-22] MEDS: ranolazine (12HR) 500 mg Tablet PO (18:07)
[2024-07-22 18:41] LABS: Glucose Point of Care 244 mg/dL (70-110)
[2024-07-22] MEDS: insulin lispro 100 unit/1 mL SUBCUT ×2 (18:48→21:40)
[2024-07-22] MEDS: atorvastatin 40 mg Tablet 80 MG PO (21:25)
[2024-07-22] MEDS: trazodone 50 mg Tablet PO (21:25)
[2024-07-22 21:39] LABS: Glucose Point of Care 203 mg/dL (70-110)
[2024-07-22] MEDS: ropinirole 0.25 mg Tablet 0.5 MG PO (21:44)
[2024-07-22] MEDS: ticagrelor 90 mg Tablet PO (21:45)
[2024-07-22] MEDS: tamsulosin 0.4 mg Capsule PO (21:45)
[2024-07-23] VITALS (11 sets, daily range): BP systolic 120–174; BP diastolic 55–76; PULSE 71–86; RESP 16–20; TEMP 36.3–37; O2SAT 92–98; BMI 49.0
[2024-07-23] MEDS: FUROsemide 10 mg/mL SDV 10mL 60 MG IVP ×2 (03:43→17:17)
[2024-07-23] MEDS: methylPREDNISolone sod succ 40 mg/mL INJ IVP ×2 (03:43→17:19)
[2024-07-23] MEDS: heparin 5,000 unit/mL INJ 1 mL 5000 UNIT SUBCUT ×2 (03:44→17:18)
[2024-07-23 05:40] LABS: Hematocrit 28.1 % (36-47); Lymphocytes # 0.7 10^3/uL (0.8-4.8); Lymphocytes % 14.8 %; Mean Corpuscular Volume 87.3 fl (85-98); Mean Platelet Volume 9.8 fL (7.4-10.4); Monocytes % 0.8 %; Neutrophils # 4.13 10^3/uL (1.8-7.7); Nucleated Red Blood Cells % 0 %; Platelet Count 323 10^3/cmm (157-399); Red Blood Count 3.22 10^6/uL (3.85-5.65); Red Cell Distribution Width 13.9 % (12.1-15.1); White Blood Count 4.92 10^3/uL (3.29-11.43)
[2024-07-23] MEDS: ticagrelor 90 mg Tablet PO ×2 (06:14→21:49)
[2024-07-23] MEDS: insulin glargine 100 units/1 mL 30 UNIT SUBCUT (06:14)
[2024-07-23] MEDS: pantoprazole DR 40 mg Tablet PO (06:14)
[2024-07-23] MEDS: levothyroxine 25 mcg Tablet PO (06:14)
[2024-07-23] MEDS: potassium chloride ER 10 mEq Tablet PO (06:14)
[2024-07-23] MEDS: aspirin 81 mg EC Tablet PO (06:14)
[2024-07-23 06:20] LABS: Anion Gap 14.9 (5-19); Blood Urea Nitrogen 32 mg/dL (8-23); Calcium 8.9 mg/dL (8.5-10.5); Carbon Dioxide 27 mmol/L (22-29); Chloride 99 mmol/L (98-107); Creatinine Clr Calc Pharmacy 54.5095; Glomerular Filtration Rate 38.2 mL/min (90-130); Glucose 255 mg/dL (65-115); Osmolality Calculated 300 mOsm/kg (285-295); Potassium 3.9 mmol/L (3.5-5.1); Sodium 137 mmol/L (136-145)
[2024-07-23 06:22] LABS: Glucose Point of Care 300 mg/dL (70-110)
[2024-07-23] MEDS: ipratropium-albuterol 3 mL Neb INHALATION ×3 (08:22→20:54)
[2024-07-23 09:32] LABS: Procalcitonin 0.15 ng/mL (0-0.5)
--- NOTE | 2024-07-23 09:40 | PC.CHAP ---
Pastoral Care Encounter/Spiritual Assessment Type of Contact [] Declined pig farm manager visit [] Patient/Family/Request visit [] Outpatient visit [] Follow-up visit [] Physician referral [] Code/Alert [] Routine visit [] Staff referral [] Actively dying [] Patient sleeping [] Family support [] [] Out of room [] Palliative care [] [] Receiving care in room [] Pre-surgical visit [] Trauma [] Long length of stay [] ICU visit [x] Other:Contact precautions. No visit. Relational/Emotional Strength [] Patient feels connected with others/family/visitors/staff [] Distress [] Loneliness/isolation [] Abandonment Spirituality of Patient [] Person of Lizette [] Attends Shinto of their Lizette [] Believes in Prayer [] Reads Bible or Anglican materials [] There are Spiritual issues to be addressed Permit Review Assistant Interventions [] Prayer [] Active listening [] Non-anxious presence [] Spiritual/emotional support [] Crisis/trauma care [] Spiritual counseling [] Bereavement support [] Provided bereavement packet [] Provided Bible/devotional materials [] Provided toy/stuffed animal, coloring book to patient or family member [] Provided Communion [] Anointing/[place] [] Salvation [] Completed spiritual assessment [] Other: Impact on Illness or Injury [] Angry [] Fearful [] Anxious [] Often cries [] Exhaustion [] Unable to work [] Unable to attend episcopal [] Unable to walk/stand [] Unable to read [] Unable to drive [] Unable to eat/drink [] Unable to sleep [] Unable to be with family [] Patient intubated [] Other: Summary Time spent with patient
[2024-07-23] MEDS: insulin lispro 100 unit/1 mL SUBCUT ×4 (10:01→21:48)
[2024-07-23] MEDS: isosorbide mononitrate ER 60 mg Tablet PO (10:02)
[2024-07-23] MEDS: metoprolol tartrate 50 mg Tablet PO ×2 (10:02→17:19)
[2024-07-23] MEDS: ranolazine (12HR) 500 mg Tablet PO ×2 (10:02→17:19)
--- NOTE | 2024-07-23 10:40 | ECG_ITS ---
[facility] Test Date: 2024-07-23 Pat Name: Watson Bridges Department: Room: 253 Gender: Female Graduate Nurse: : [id number] Requested By: Ruthy Chang Order Number: [id number] Reading MD: JYOTI CROCKETT Measurements Intervals [place] Rate: 86 P: 35 LA: 158 QRS: 35 QRSD: 107 T: 55 QT: 349 QTc: 420 Interpretive Statements SINUS RHYTHM NONSPECIFIC T-WAVE ABNORMALITY Compared to ECG 04/29/2024 23:28:42 T-wave abnormality now present Electronically Signed On 07-29-2024 23:29:01 INSTANT PRINTER OPERATOR by JYOTI CROCKETT [email or web address]
[2024-07-23 11:41] LABS: Glucose Point of Care 323 mg/dL (70-110)
--- NOTE | 2024-07-23 13:24 | CT_ITS ---
WS: [id number] CT CHEST TECHNIQUE: Noncontrast CT of the chest with coronal and sagittal reformatted images. CLINICAL INFORMATION: suspect pna COMPARISON: None. DLP: 542.[address] scans at [facility] use at least one of these dose optimization techniques: automated e xposure control; mA and/or kV adjustment per patient size (includes targeted exams where dose is matc hed to clinical indication); or iterative reconstruction. FINDINGS: Calcified granulomas LEFT lower lobe. Cardiomegaly. Normal caliber thoracic aorta. Aortic calcificati on. Coronary calcification. Splenic artery calcification. Splenic granulomas. No axillary lymphadenop athy. Subsegmental atelectasis in the lingula, RIGHT middle lobe, and LEFT greater than RIGHT lower lobes. No focal consolidation. A few hazy opacities in the lingula and RIGHT middle lobe. Mild thoracic kyphosis hypertrophic changes thoracic spine. CT/CT chest wo con [id number] IMPRESSION: 1. Opacity described on the recent chest radiograph appears to represent subse gmental atelectasis with a few hazy opacities in the lingula and perihilar jun ons bilaterally, and RIGHT middle lobe. This may be infectious or inflammatory. 2. No focal pneumonia or consolidation. 3. Subsegmental atelectasis in the RIGHT middle lobe and LEFT greater than RIG HT lower lobes. 4. Calcified granulomas LEFT lower lobe. 5. Cardiomegaly. 6. Coronary calcification. 7. Dense vascular calcification in the upper abdomen.
--- NOTE | 2024-07-23 13:32 | PM.PN ---
Documented by User: Eugene Ortiz 07/23/24 14:26 Subjective Subjective: Patient seen this morning. No acute overnight events. Patient states that she is not feeling any better this morning. She also reports 2 instances of coughing up red sputum this morning. She states having intermittent right-sided chest pain for past few days. Denies fevers, N/V/D, dysuria. Vitals/I&O/Wt Last Vital Signs Temp 98.6 F 07/23/24 12:14 Pulse 85 07/23/24 12:14 Resp 19 H 07/23/24 12:14 BP 146/55 07/23/24 12:14 Pulse Ox 93 07/23/24 12:14 O2 Del Method Nasal Cannula 07/23/24 12:14 O2 Flow Rate 2 07/23/24 08:23 07/22/24 07/23/24 07/23/24 22:59 06:59 14:59 Intake Total 250 / 250 680 / 930 240 / 240 Output Total 1600 / 1600 Balance 250 / 250 -920 / -670 240 / 240 Weight last 48 hrs Weight 125.963 kg Weight 125.645 kg Weight 99.79 kg Physical Exam Const: COMMON NORMALS: patient oriented x3 HENMT: COMMON NORMALS: normocephalic and atraumatic HEAD & SCALP: normocephalic and atraumatic Eye: COMMON NORMALS: EOMs intact bilaterally Chest: CHEST: Yes Symmetrical chest wall rise Resp: AUSCULTATION: crackles and rhonchi Cardio: COMMON NORMALS: regular rate, regular rhythm, S1 normal heart sound present, S2 normal heart sound present and No murmurs present (Cardio) RATE: regular rate RHYTHM: regular rhythm HEART SOUNDS: S1 normal heart sound present and S2 normal heart sound present GI: COMMON NORMALS: Normal to inspection, nondistended, normoactive bowel sounds present, Soft to palpation and non-tender AUSCULTATION: Yes normoactive bowel sounds PALPATION: Yes Soft to palpation Neuro: COMMON NORMALS: patient oriented x3 Psych: COMMON NORMALS: cooperative Skin: COMMON NORMALS: no rashes or lesions noted GENERAL SKIN EXAM: no rashes or lesions noted Urinary Catheter Management: Sahu: Cath Placed During This Visit: yes Reason for Continuing Indwelling Catheter: Acute Urinary Retention or Obstruction Urinary Catheter Date of Insertion: 07/22/24 Urinary Catheter Time of Insertion: 17:34 Data 07/23/24 04:58 07/23/24 04:58 Micro: Microbiology 07/23/24 10:40 Gram Stain - Final Sputum - Expectorated Sputum A&P Assessment and plan (1) CHF (congestive heart failure): Qualifiers: Heart failure chronicity: acute on chronic Heart failure type: systolic Qualified Code(s): I50.23 - Acute on chronic systolic (congestive) heart failure (2) DM type 2 (diabetes mellitus, type 2): Qualifiers: Diabetes mellitus vermin exterminator insulin use: without vermin exterminator use Diabetes mellitus complication status: without complication Qualified Code(s): E11.9 - Type 2 diabetes mellitus without complications (3) Chronic kidney disease (CKD): Qualifiers: Chronic kidney disease stage: stage 3 (moderate) Chronic kidney disease stage 3 subtype: stage 3a (GFR 45-59) Qualified Code(s): N18.31 - Chronic kidney disease, stage 3a (4) RSV bronchiolitis: (5) UTI (urinary tract infection): Qualifiers: Urinary tract infection type: site unspecified Hematuria presence: with hematuria Qualified Code(s): N39.0 - Urinary tract infection, site not specified; R31.9 - Hematuria, unspecified Plan Watson Bridges is a 63 y/o F with PMHx of CHF who appears to be in heart failure at this time with worsening shortness of breath. Respiratory viral panel came back positive for RSV Type A. 1) CHF ? Continue IV Lasix 60 IV twice daily ? Check electrolytes daily check BMP. - EKG ordered and currently pending. ? Last echo in April showed EF of 41%. She has bilateral crackles at bases and generalized anasarca. - Rechecked echo showing Diffuse hypokinesia left ventriculae with EF around 40% and Grade I/IV diastolic dysfunction 2) Pneumonia ? Denied a fever at the correction. Is bringing up phlegm that was green and now red this morning. ? Chest x-ray shows focal left lung opacity. Most likely consistent with pneumonia given clinical picture. - Will check chest CT without contrast ? Continue ceftriaxone azithromycin IV. - Respiratory viral panel shows RSV Type A positive. ? Checked procalcitonin. Within normal limits at 0.15 3) Abnormal UA ? Urinalysis abnormal in the ER. Suspect UTI. Urine culture pending - Ceftriaxone to cover for UTI. Adjust Abx as needed per urine culture 4) DMII ? Continue sliding scale insulin moderate dose intensity. Continue Lantus 30 units. ? Continue Brilinta,, ranolazine, levothyroxine, atorvastatin. 5) Thyroid - TSH rechecked at 8.35. Will double levothyroxine from 25mcg to 50mcg. Full Code She would like to sign a DPOA in her nephew Tony's name. Will contact medical social worker. Cardiac consistent carb diet Goals of care discussion done: pt wants to be full code and wants to sign DPOA. Coding Level of Care Code Acute Code for Chg Fwd Diagnoses Acute on chronic systolic congestive heart failure I50.23 Heart failure chronicity: acute on chronic Heart failure type: systolic Type 2 diabetes mellitus without complication, without long-term current use of insulin E11.9 Diabetes mellitus senior living insulin use: without senior living use Diabetes mellitus complication status: without complication Stage 3a chronic kidney disease N18.31 Chronic kidney disease stage: stage 3 (moderate) Chronic kidney disease stage 3 subtype: stage 3a (GFR 45-59) RSV bronchiolitis J21.0 Urinary tract infection with hematuria, site unspecified N39.0; R31.9 Urinary tract infection type: site unspecified Hematuria presence: with hematuria Documented by User: Ruthy Chang MD 07/23/24 14:33 Physical Exam Urinary Catheter Management: Sahu: Cath Placed During This Visit: yes Data 07/23/24 04:58 07/23/24 04:58 A&P Assessment and plan (1) CHF (congestive heart failure): Qualifiers: Heart failure chronicity: acute on chronic Heart failure type: systolic Qualified Code(s): I50.23 - Acute on chronic systolic (congestive) heart failure (2) DM type 2 (diabetes mellitus, type 2): Qualifiers: Diabetes mellitus vermin exterminator insulin use: without vermin exterminator use Diabetes mellitus complication status: without complication Qualified Code(s): E11.9 - Type 2 diabetes mellitus without complications (3) Chronic kidney disease (CKD): Qualifiers: Chronic kidney disease stage: stage 3 (moderate) Chronic kidney disease stage 3 subtype: stage 3a (GFR 45-59) Qualified Code(s): N18.31 - Chronic kidney disease, stage 3a (4) RSV bronchiolitis: (5) UTI (urinary tract infection): Qualifiers: Urinary tract infection type: site unspecified Hematuria presence: with hematuria Qualified Code(s): N39.0 - Urinary tract infection, site not specified; R31.9 - Hematuria, unspecified Plan Watson Bridges is a 63 y/o F with PMHx of CHF who appears to be in heart failure at this time with worsening shortness of breath. Respiratory viral panel came back positive for RSV Type A. 1) CHF ? Continue IV Lasix 60 IV twice daily ? Check electrolytes daily check BMP. - EKG ordered and currently pending. ? Last echo in April showed EF of 41%. She has bilateral crackles at bases and generalized anasarca. - Rechecked echo showing Diffuse hypokinesia left ventriculae with EF around 40% and Grade I/IV diastolic dysfunction 2) Pneumonia ? Denied a fever at the correction. Is bringing up phlegm that was green and now red this morning. ? Chest x-ray shows focal left lung opacity. Most likely consistent with pneumonia given clinical picture. - Will check chest CT without contrast ? Continue ceftriaxone azithromycin IV. - Respiratory viral panel shows RSV Type A positive. ? Checked procalcitonin. Within normal limits at 0.15 3) Abnormal UA ? Urinalysis abnormal in the ER. Suspect UTI. Urine culture pending - Ceftriaxone to cover for UTI. Adjust Abx as needed per urine culture 4) DMII ? Continue sliding scale insulin moderate dose intensity. Continue Lantus 30 units. ? Continue Brilinta,, ranolazine, levothyroxine, atorvastatin. 5) Thyroid - TSH rechecked at 8.35. Will double levothyroxine from 25mcg to 50mcg. Full Code She would like to sign a DPOA in her nephew Tony's name. Will contact medical social worker. Cardiac consistent carb diet Goals of care discussion done: pt wants to be full code and wants to sign DPOA. Agree with student's progress note from today. Please see my progress note from 14:14 for billing purposes Attestations Medical Necessity Statement*: Requires continued hospitalization Coding Level of Care Code Acute Code for Chg Fwd Diagnoses Acute on chronic systolic congestive heart failure I50.23 Heart failure chronicity: acute on chronic Heart failure type: systolic Type 2 diabetes mellitus without complication, without long-term current use of insulin E11.9 Diabetes mellitus vermin exterminator insulin use: without senior living use Diabetes mellitus complication status: without complication Stage 3a chronic kidney disease N18.31 Chronic kidney disease stage: stage 3 (moderate) Chronic kidney disease stage 3 subtype: stage 3a (GFR 45-59) RSV bronchiolitis J21.0 Urinary tract infection with hematuria, site unspecified N39.0; R31.9 Urinary tract infection type: site unspecified Hematuria presence: with hematuria
--- NOTE | 2024-07-23 14:14 | PM.PN ---
Subjective Subjective: Seen this morning. Patient states that she had slight bit of redness sputum this morning. Also complains of right-sided chest pain that comes and goes. However she states that it hurts every time she takes a deep breath. ? Positive for RSV ? Still complains of congestion States she is not really feeling any better. Vitals/I&O/Wt Last Vital Signs Temp 98.6 F 07/23/24 12:14 Pulse 85 07/23/24 12:14 Resp 19 H 07/23/24 12:14 BP 146/55 07/23/24 12:14 Pulse Ox 93 07/23/24 12:14 O2 Del Method Nasal Cannula 07/23/24 12:14 O2 Flow Rate 2 07/23/24 08:23 07/22/24 07/23/24 07/23/24 22:59 06:59 14:59 Intake Total 250 / 250 680 / 930 720 / 720 Output Total 1600 / 1600 1200 / 1200 Balance 250 / 250 -920 / -670 -480 / -480 Weight last 48 hrs Weight 125.963 kg Weight 125.645 kg Weight 99.79 kg Physical Exam Narrative: General: Alert oriented x3, sitting up in bed with nasal cannula. HEENT: Normocephalic, atraumatic, EOMI, Cardio: Regular rate rhythm, normal S1-S2, difficult to auscultate for murmurs or gallops secondary to large body habitus, difficult to check for JVD due to large neck. Respiratory: Crackles bilaterally at bases with diffuse rhonchi. GI: Abdomen soft, nontender, nondistended, bowel sounds + Extremities: Generalized edema bilateral lower extremities appears to be chronic. Urinary Catheter Management: Sahu: Cath Placed During This Visit: yes Reason for Continuing Indwelling Catheter: Acute Urinary Retention or Obstruction Urinary Catheter Date of Insertion: 07/22/24 Urinary Catheter Time of Insertion: 17:34 Data 07/23/24 04:58 07/23/24 04:58 Micro: Microbiology 07/23/24 10:40 Gram Stain - Final Sputum - Expectorated Sputum A&P Assessment and plan (1) CHF (congestive heart failure): Qualifiers: Heart failure chronicity: acute on chronic Heart failure type: systolic Qualified Code(s): I50.23 - Acute on chronic systolic (congestive) heart failure (2) DM type 2 (diabetes mellitus, type 2): Qualifiers: Diabetes mellitus tank terminal gauger insulin use: without tank terminal gauger use Diabetes mellitus complication status: without complication Qualified Code(s): E11.9 - Type 2 diabetes mellitus without complications (3) Morbid obesity: (4) GERD (gastroesophageal reflux disease): (5) Chronic kidney disease (CKD): Qualifiers: Chronic kidney disease stage: stage 3 (moderate) Chronic kidney disease stage 3 subtype: stage 3a (GFR 45-59) Qualified Code(s): N18.31 - Chronic kidney disease, stage 3a (6) UTI (urinary tract infection): Qualifiers: Urinary tract infection type: site unspecified Hematuria presence: with hematuria Qualified Code(s): N39.0 - Urinary tract infection, site not specified; R31.9 - Hematuria, unspecified (7) Cough: (8) Severe obstructive sleep apnea: (9) Generalized weakness: (10) Goals of care, counseling/discussion: Plan #Acute on chronic congestive heart failure #Cough, SOB most likely 2/2 to above #Recent NSTEMI status post PCI with JORDIN x 2. #CAD #UTI #Type 2 DM insulin dependent #B/L LE weakness #HTN #Hx of Stroke #BETH #Hypothyroidism #CKD -Patient appears to be in heart failure at this time with worsening shortness of breath requirement of oxygen and at times has gurgling sounds and sounds very congested. Upper respiratory virus cannot be ruled out. Respiratory viral panel has been ordered. I will treat this as heart failure at this time. ? Will start IV Lasix 60 IV twice daily ? Check electrolytes daily check BMP. ? Last echo in April showed EF of 41%. Will recheck echo as I suspect worsening secondary to patient's clinical status. She has bilateral crackles at bases and generalized anasarca. ? Denies any chest pain. ? Denies a fever at the [facility]. Is bringing up phlegm.That is dark yellow. ? Chest x-ray shows focal left lung opacity. Most likely consistent with pneumonia given clinical picture. ? She did receive a dose of Zosyn in the ER. Will place on ceftriaxone azithromycin IV ? Check procalcitonin ? Continue sliding scale insulin moderate dose intensity. Continue Lantus 30 units in the morning. ? Continue Brilinta,, ranolazine, levothyroxine, atorvastatin. -I will check chest CT without contrast ? Urinalysis abnormal in the ER. Suspect UTI. Will check urine culture - Ceftriaxone to cover for UTI - Will obtain baseline EKG Full Code She would like to sign a DPOA in her nephew Tony's name. Will contact social media senior associate. Cardiac consistent carb diet Goals of care discussion done: pt wants to be full code and wants to sign DPOA. 07/23/2024 -Continue aspirin Brilinta seen levothyroxine atorvastatin ? CT chest without contrast is pending at this time ? Continue ceftriaxone, Lasix twice daily ? Echo does show EF of 40% however cardiology states that there may be significant change in results. Will discuss with cardiology ? She continues to have wheezing in bilateral lung bases. ? Continue to diurese at this time ? Will obtain troponins and EKG. EKG does show sinus rhythm. Right-sided chest pain seems to be pleuritic in nature as she states it is related to her breathing. ? Patient has bed bound on Fernie lift at nursing facility. ? Continue to provide supportive care for RSV. DuoNeb every 6 hours scheduled ? Continue to diurese ? TSH 8 range. Will increase levothyroxine to 50 daily. ? Does have chronic CKD with creatinine at baseline 1.4. Attestations Medical Necessity Statement*: Will require continued hospitalization for above issues. Diagnoses Acute on chronic systolic congestive heart failure I50.23 Heart failure chronicity: acute on chronic Heart failure type: systolic Type 2 diabetes mellitus without complication, without long-term current use of insulin E11.9 Diabetes mellitus tank terminal gauger insulin use: without tank terminal gauger use Diabetes mellitus complication status: without complication Morbid obesity E66.01 GERD (gastroesophageal reflux disease) K21.9 Stage 3a chronic kidney disease N18.31 Chronic kidney disease stage: stage 3 (moderate) Chronic kidney disease stage 3 subtype: stage 3a (GFR 45-59) Urinary tract infection with hematuria, site unspecified N39.0; R31.9 Urinary tract infection type: site unspecified Hematuria presence: with hematuria Cough R05.9 Severe obstructive sleep apnea G47.33 Generalized weakness R53.1 Goals of care, counseling/discussion Z71.89
[2024-07-23 14:15] LABS: Troponin(5th) Baseline 118 ng/L (0-10)
--- NOTE | 2024-07-23 14:38 | ECG_ITS ---
[facility]24[facility]23 Pat Name: Watson Bridges Department: Room: 253 Gender: Female Environmental Health And Safety Manager: : 1960 Requested By: Ruthy Chang Order Number: [id number] Reading MD: Denisse Rodriguez M.D. Measurements Intervals [place] Rate: 78 P: 43 [place]: 165 QRS: 42 QRSD: 107 T: 91 QT: 364 QTc: 416 Interpretive Statements SINUS RHYTHM POSSIBLE ANTERIOR MYOCARDIAL INFARCTION , PROBABLY OLD [30 ms Q WAVE IN V3/V4, OR R < 0.2 mV IN V4] PROBABLE INFERIOR MYOCARDIAL INFARCTION , PROBABLY OLD [35 ms Q WAVE IN II/aVF] Compared to ECG 07/23/2024 10:40:58 Myocardial infarct finding now present T-wave abnormality no longer present Electronically Signed On 07-23-2024 23:48:49 OPERATIONS SUPERVISOR CHEMICAL CLEANING by Denisse Rodriguez M.D. [email or web address]
--- NOTE | 2024-07-23 15:21 | ECG_ITS ---
[facility]: 2024-[facility]23 Pat Name: Watson Bridges Department: Room: 253 Gender: Female Drawing Tracer: : 1960 Requested By: Ruthy Chang Order Number: [id number] Reading MD: JYOTI CROCKETT Measurements Intervals [place] Rate: 77 P: 45 [place]: 168 QRS: 41 QRSD: 99 T: 73 QT: 366 QTc: 416 Interpretive Statements SINUS RHYTHM POSSIBLE ANTERIOR MYOCARDIAL INFARCTION , PROBABLY OLD [30 ms Q WAVE IN V3/V4, OR R < 0.2 mV IN V4] Compared to ECG 07/23/2024 14:38:44 No significant changes Electronically Signed On 07-29-2024 23:27:45 MEDICAL LABORATORY ASSISTANT by JYOTI CROCKETT [email or web address]
[2024-07-23 16:24] LABS: Troponin 5 2HR 117.2 ng/L (0-10); Troponin 5 2HR Delta -0.8 ABS# (0-10)
[2024-07-23 16:37] LABS: Glucose Point of Care 189 mg/dL (70-110)
[2024-07-23] MEDS: acetaminophen 500 mg Tablet PO (17:19)
[2024-07-23] MEDS: cefTRIAXone 1,000 mg SDV 1000 MG IVP (17:20)
[2024-07-23] MEDS: AZITHROMYCIN ADD-Vantage 500 MG in 0.9% NaCl ADD-Vantage 250 ML 250 MG IV (18:37)
[2024-07-23 19:59] LABS: Glucose Point of Care 250 mg/dL (70-110)
--- NOTE | 2024-07-23 20:59 | ECG_ITS ---
[facility]: [facility]24[facility]23 Pat Name: Watson Bridges Department: Room: 253 Gender: Female Surgical Attendant: : 1960 Requested By: Ruthy Chang Order Number: [id number] Reading MD: JYOTI CROCKETT Measurements Intervals [place] Rate: 77 P: 44 [place]: 159 QRS: 48 QRSD: 97 T: 78 QT: 401 QTc: 455 Interpretive Statements SINUS RHYTHM POSSIBLE ANTERIOR MYOCARDIAL INFARCTION , PROBABLY OLD [30 ms Q WAVE IN V3/V4, OR R < 0.2 mV IN V4] Compared to ECG 07/23/2024 16:27:42 No significant changes Electronically Signed On 07-29-2024 23:23:07 LOOM FIXER APPRENTICE by JYOTI CROCKETT [id number]
[2024-07-23] MEDS: ropinirole 0.25 mg Tablet 0.5 MG PO (21:48)
[2024-07-23] MEDS: atorvastatin 40 mg Tablet 80 MG PO (21:49)
[2024-07-23] MEDS: trazodone 50 mg Tablet PO (21:49)
[2024-07-23] MEDS: tamsulosin 0.4 mg Capsule PO (21:49)
[2024-07-24] VITALS (12 sets, daily range): BP systolic 147–171; BP diastolic 69–77; PULSE 71–78; RESP 16–20; TEMP 36.4–37; O2SAT 95–99
[2024-07-24] MEDS: FUROsemide 10 mg/mL SDV 10mL 60 MG IVP (03:48)
[2024-07-24] MEDS: heparin 5,000 unit/mL INJ 1 mL 5000 UNIT SUBCUT ×2 (03:49→17:06)
[2024-07-24] MEDS: methylPREDNISolone sod succ 40 mg/mL INJ IVP ×2 (03:49→17:03)
[2024-07-24 05:39] LABS: Basophils % 0.1 %; Hematocrit 27.7 % (36-47); Lymphocytes # 1.2 10^3/uL (0.8-4.8); Lymphocytes % 13.3 %; Mean Corpuscular Hemoglobin 27.2 pg (27-33); Mean Corpuscular Volume 87.7 fl (85-98); Mean Platelet Volume 9.7 fL (7.4-10.4); Monocytes # 0.3 10^3/uL (0.2-0.9); Monocytes % 3.5 %; Neutrophils # 7.56 10^3/uL (1.8-7.7); Neutrophils % 82.8 %; Nucleated Red Blood Cells % 0 %; Platelet Count 348 10^3/cmm (157-399); Red Blood Count 3.16 10^6/uL (3.85-5.65); White Blood Count 9.13 10^3/uL (3.29-11.43)
[2024-07-24] MEDS: pantoprazole DR 40 mg Tablet PO (05:57)
[2024-07-24] MEDS: aspirin 81 mg EC Tablet PO (05:57)
[2024-07-24] MEDS: levothyroxine 50 mcg Tablet PO (05:57)
[2024-07-24] MEDS: potassium chloride ER 10 mEq Tablet PO (05:57)
[2024-07-24] MEDS: insulin glargine 100 units/1 mL 30 UNIT SUBCUT (05:58)
[2024-07-24] MEDS: ticagrelor 90 mg Tablet PO ×2 (05:58→21:30)
[2024-07-24 06:03] LABS: Anion Gap 12.1 (5-19); Blood Urea Nitrogen 39 mg/dL (8-23); Calcium 9.2 mg/dL (8.5-10.5); Carbon Dioxide 31 mmol/L (22-29); Chloride 100 mmol/L (98-107); Glomerular Filtration Rate 35.3 mL/min (90-130); Glucose 198 mg/dL (65-115); Osmolality Calculated 303 mOsm/kg (285-295); Potassium 4.1 mmol/L (3.5-5.1); Sodium 139 mmol/L (136-145)
[2024-07-24 06:17] LABS: Glucose Point of Care 200 mg/dL (70-110)
[2024-07-24] MEDS: ipratropium-albuterol 3 mL Neb INHALATION ×3 (07:36→20:30)
--- NOTE | 2024-07-24 08:59 | P.PN_ITS ---
Documented by User: Eugene Ortiz 07/24/24 11:35 Subjective 2 Subjective: Patient seen this morning. No acute overnight events. Patient states that she is not feeling better this morning. She states that she is no longer experiencing intermittent right-sided chest pain that she was having yesterday (07/23). She is still producing some phlegm that is red and is having a lot of pain when taking deep breaths. Denies chest pain, N/V/D, dysuria. Vitals/I&O/Wt Last Vital Signs Temp 98.3 F 07/24/24 08:00 Pulse 75 07/24/24 08:00 Resp 17 07/24/24 08:00 BP 171/74 07/24/24 08:00 Pulse Ox 98 07/24/24 08:00 O2 Del Method Nasal Cannula 07/24/24 08:00 O2 Flow Rate 2 07/24/24 07:36 07/23/24 07/24/24 07/24/24 22:59 06:59 14:59 Intake Total 1290 / 2010 360 / 2370 Output Total 1900 / 3100 1100 / 4200 Balance -610 / -1090 -740 / -1830 Weight last 48 hrs Weight 126.053 kg Weight 125.963 kg Weight 125.645 kg Weight 99.79 kg Physical Exam 2 HENMT: COMMON NORMALS: normocephalic and atraumatic HEAD & SCALP: n ormocephalic and atraumatic Eye: COMMON NORMALS: EOMs intact bilaterally and conjunctivae normal C ONJUNCTIVA: Yes conjunctivae normal Resp: AUSCULTATION: rales and wheezes Cardio: COMMON NORMALS: regular rate, regular rhythm, S1 normal heart sound present, S2 normal heart sound present and No murmurs present (Cardio) RATE: regular rate RHYTHM: regular rhythm HEART SOUNDS: S1 normal heart sound present and S2 normal heart sound present Urinary Catheter Management: Sahu: Cath Placed During This Visit: yes Reason for Continuing Indwelling Catheter: Acute Urinary Retention or Obstruction Urinary Catheter Date of Insertion: 07/22/24 Urinary Catheter Time of Insertion: 17:34 Data 07/24/24 05:10 07/24/24 05:10 Micro: Microbiology 07/23/24 10:40 Gram Stain - Final Sputum - Expectorated Sputum A&P Assessment and plan (1) CHF (congestive heart failure): Qualifiers: Heart failure chronicity: acute on chronic Heart failure type: systolic Qualified Code(s): I50.23 - Acute on chronic systolic (congestive) heart failure (2) DM type 2 (diabetes mellitus, type 2): Qualifiers: Diabetes mellitus senior care insulin use: without senior care use Diabetes mellitus complication status: without complication Qualified Code(s): E11.9 - Type 2 diabetes mellitus without complications (3) Obesity: (4) GERD (gastroesophageal reflux disease): (5) Chronic kidney disease (CKD): Qualifiers: Chronic kidney disease stage: stage 3 (moderate) Chronic kidney disease stage 3 subtype: stage 3a (GFR 45-59) Qualified Code(s): N18.31 - Chronic kidney disease, stage 3a (6) Chronic cystitis: (7) RSV bronchiolitis: (8) Sleep apnea in adult: Mónica Bridges is a 63 y/o F with PMHx of CHF who appears to be in heart failure with worsening shortness of breath. Respiratory viral panel positive for RSV Type A. 1) CHF ? Continue IV Lasix 60 IV twice daily ? Check electrolytes daily check BMP. - EKG ordered, showing sinus rhythm and possible old myocardial infarction. ? Last echo in April showed EF of 41%. She has bilateral wheezes at bases. - Rechecked echo (07/22) showing Diffuse hypokinesia left ventriculae with EF around 40% and Grade I/IV diastolic dysfunction 2) Pneumonia ? Denied a fever at the intermediate. Was bringing up phlegm that was green and now red morning of 07/23. ? Chest x-ray shows focal left lung opacity. Most likely consistent with pneumonia given clinical picture. - Chest CT without contrast showed subsegmental atelectasis in RML and lower lobes greater in LLL with hazy opacities in RML. no consolidation. dense vascular calcifications in upper abdomen. coronary calcifications. ? Continue ceftriaxone azithromycin IV. - Respiratory viral panel shows RSV Type A positive. - Sputum culture pending. ? Checked procalcitonin (07/22). Within normal limits at 0.15 3) Abnormal UA ? Urinalysis abnormal in the ER. Suspect UTI. Urine culture showed no growth after 36 hours (07/23). - Ceftriaxone to cover for UTI. 4) DMII ? Continue sliding scale insulin moderate dose intensity. Continue Lantus 30 units. ? Continue Brilinta,, ranolazine, levothyroxine, atorvastatin. 5) Thyroid - TSH rechecked at 8.35 (07/22). Doubled levothyroxine from 25mcg to 50mcg (07/23). Continue levothyroxine 50mcg. Full Code She would like to sign a DPOA in her nephew Tony's name. Will contact social media marketing analyst. Cardiac consistent carb diet Goals of care discussion done: pt wants to be full code and wants to sign DPOA. Coding Level of Care Code 08306 Diagnoses Acute on chronic systolic congestive heart failure I50.23 Heart failure chronicity: acute on chronic Heart failure type: systolic Type 2 diabetes mellitus without complication, without long-term current use of insulin E11.9 Diabetes mellitus senior care insulin use: without terminal operations manager use Diabetes mellitus complication status: without complication Obesity E66.9 GERD (gastroesophageal reflux disease) K21.9 Stage 3a chronic kidney disease N18.31 Chronic kidney disease stage: stage 3 (moderate) Chronic kidney disease stage 3 subtype: stage 3a (GFR 45-59) Chronic cystitis N30.20 RSV bronchiolitis J21.0 Sleep apnea in adult G47.30 Documented by User: Ruthy Chang MD 07/24/24 13:48 Subjective 2 Subjective: Patient seen this morning along with medical student. She states that the first day when she came to the hospital she felt she was going to however is feeling somewhat better however not completely back to her baseline yet. She is still producing phlegm however no longer having reddish sputum. Denies any chest pain this morning. Troponins reviewed. Delta negative. EKG does not show any acute infarcts. Urine output 3000 in last 24 hours. She is -2 L since admission. Creatinine is 1.5 today. Baseline 1.2-1.3. Physical Exam 2 Extremity: NARRATIVE EXTREMITY EXAM: Generalized anasarca however appears to be improved. Urinary Catheter Management: Sahu: Cath Placed During This Visit: yes Data 07/24/24 05:10 01/15/25 05:10 A&P Assessment and plan (1) CHF (congestive heart failure): Qualifiers: Heart failure chronicity: acute on chronic Heart failure type: systolic Qualified Code(s): I50.23 - Acute on chronic systolic (congestive) heart failure (2) DM type 2 (diabetes mellitus, type 2): Qualifiers: Diabetes mellitus terminal operations manager insulin use: without senior care use Diabetes mellitus complication status: without complication Qualified Code(s): E11.9 - Type 2 diabetes mellitus without complications (3) Obesity: (4) GERD (gastroesophageal reflux disease): (5) Chronic kidney disease (CKD): Qualifiers: Chronic kidney disease stage: stage 3 (moderate) Chronic kidney disease stage 3 subtype: stage 3a (GFR 45-59) Qualified Code(s): N18.31 - Chronic kidney disease, stage 3a (6) Chronic cystitis: (7) RSV bronchiolitis: (8) Sleep apnea in adult: Plan Watson Bridges is a 63 y/o F with PMHx of CHF who appears to be in heart failure with worsening shortness of breath. Respiratory viral panel positive for RSV Type A. 1) CHF ? Continue IV Lasix 60 IV twice daily ? Check electrolytes daily check BMP. - EKG ordered, showing sinus rhythm and possible old myocardial infarction. ? Last echo in April showed EF of 41%. She has bilateral wheezes at bases. - Rechecked echo (07/22) showing Diffuse hypokinesia left ventriculae with EF around 40% and Grade I/IV diastolic dysfunction 2) Pneumonia ? Denied a fever at the intermediate. Was bringing up phlegm that was green and now red morning of 07/23. ? Chest x-ray shows focal left lung opacity. Most likely consistent with pneumonia given clinical picture. - Chest CT without contrast showed subsegmental atelectasis in RML and lower lobes greater in LLL with hazy opacities in RML. no consolidation. dense vascular calcifications in upper abdomen. coronary calcifications. ? Continue ceftriaxone azithromycin IV. - Respiratory viral panel shows RSV Type A positive. - Sputum culture pending. ? Checked procalcitonin (07/22). Within normal limits at 0.15 3) Abnormal UA ? Urinalysis abnormal in the ER. Suspect UTI. Urine culture showed no growth after 36 hours (07/23). - Ceftriaxone to cover for UTI. 4) DMII ? Continue sliding scale insulin moderate dose intensity. Continue Lantus 30 units. ? Continue Brilinta,, ranolazine, levothyroxine, atorvastatin. 5) Thyroid - TSH rechecked at 8.35 (07/22). Doubled levothyroxine from 25mcg to 50mcg (07/23). Continue levothyroxine 50mcg. Full Code She would like to sign a DPOA in her nephew Tony's name. Will contact social media marketing analyst. Cardiac consistent carb diet Goals of care discussion done: pt wants to be full code and wants to sign DPOA. #Acute on chronic congestive heart failure #Cough, SOB most likely 2/2 to above #Recent NSTEMI status post PCI with JORDIN x 2. #CAD #UTI #Type 2 DM insulin dependent #B/L LE weakness #HTN #Hx of Stroke #BETH #Hypothyroidism #CKD -Patient appears to be in heart failure at this time with worsening shortness of breath requirement of oxygen and at times has gurgling sounds and sounds very congested. Upper respiratory virus cannot be ruled out. Respiratory viral panel has been ordered. I will treat this as heart failure at this time. ? Will start IV Lasix 60 IV twice daily ? Check electrolytes daily check BMP. ? Last echo in April showed EF of 41%. Will recheck echo as I suspect worsening secondary to patient's clinical status. She has bilateral crackles at bases and generalized anasarca. ? Denies any chest pain. ? Denies a fever at the intermediate. Is bringing up phlegm.That is dark yellow. ? Chest x-ray shows focal left lung opacity. Most likely consistent with pneumonia given clinical picture. ? She did receive a dose of Zosyn in the ER. Will place on ceftriaxone azithromycin IV ? Check procalcitonin ? Continue sliding scale insulin moderate dose intensity. Continue Lantus 30 units in the morning. ? Continue Brilinta,, ranolazine, levothyroxine, atorvastatin. -I will check chest CT without contrast ? Urinalysis abnormal in the ER. Suspect UTI. Will check urine culture - Ceftriaxone to cover for UTI - Will obtain baseline EKG Full Code She would like to sign a DPOA in her nephew Tony's name. Will contact social media marketing analyst. Cardiac consistent carb diet Goals of care discussion done: pt wants to be full code and wants to sign DPOA. 07/23/2024 -Continue aspirin Brilinta seen levothyroxine atorvastatin ? CT chest without contrast is pending at this time ? Continue ceftriaxone, Lasix twice daily ? Echo does show EF of 40% however cardiology states that there may be significant change in results. Will discuss with cardiology ? She continues to have wheezing in bilateral lung bases. ? Continue to diurese at this time ? Will obtain troponins and EKG. EKG does show sinus rhythm. Right-sided chest pain seems to be pleuritic in nature as she states it is related to her breathing. ? Patient has bed bound on Fernie lift at nursing facility. ? Continue to provide supportive care for RSV. DuoNeb every 6 hours scheduled ? Continue to diurese ? TSH 8 range. Will increase levothyroxine to 50 daily. ? Does have chronic CKD with creatinine at baseline 1.4. 07/24/2024 ?Continue aspirin Brilinta levothyroxine atorvastatin ? CT chest without contrast reviewed: 1. Opacity described on the recent chest radiograph appears to represent subsegmental atelectasis with a few hazy opacities in the lingula and perihilar regions bilaterally, and RIGHT middle lobe. This may be infectious or inflammatory. 2. No focal pneumonia or consolidation. 3. Subsegmental atelectasis in the RIGHT middle lobe and LEFT greater than RIGHT lower lobes. 4. Calcified granulomas LEFT lower lobe. 5. Cardiomegaly. 6. Coronary calcification. 7. Dense vascular calcification in the upper abdomen. Continue ceftriaxone. Stop Lasix at this time. Creatinine is worsening. Baseline creatinine 1.4. Creatinine 1.5 today. She has been diuresed adequately. Is -2 L since admission. ? Troponins reviewed however lower than previous hospitalization. Delta negative. EKG shows sinus rhythm and no acute ischemic changes. ? Chest pain most likely pleuritic in nature. ? She has been bedbound and Fernie lift at nursing facility. Continue to provide supportive care for RSV. DuoNeb every 6 hours scheduled, add incentive spirometer, flutter valve if needed may add chest vest as well. She has a lot of secretions. ? Continue levothyroxine at 50 daily. ? Continue Solu-Medrol 40 IV twice daily, continue azithromycin, ceftriaxone. Attestations 2 Medical Necessity Statement*: Will require continued hospitalization for above issues. Diagnoses Acute on chronic systolic congestive heart failure I50.23 Heart failure chronicity: acute on chronic Heart failure type: systolic Type 2 diabetes mellitus without complication, without long-term current use of insulin E11.9 Diabetes mellitus terminal operations manager insulin use: without terminal operations manager use Diabetes mellitus complication status: without complication Obesity E66.9 GERD (gastroesophageal reflux disease) K21.9 Stage 3a chronic kidney disease N18.31 Chronic kidney disease stage: stage 3 (moderate) Chronic kidney disease stage 3 subtype: stage 3a (GFR 45-59) Chronic cystitis N30.20 RSV bronchiolitis J21.0 Sleep apnea in adult G47.30
[2024-07-24] MEDS: metoprolol tartrate 50 mg Tablet PO ×2 (11:02→17:03)
[2024-07-24] MEDS: isosorbide mononitrate ER 60 mg Tablet PO (11:02)
[2024-07-24] MEDS: ranolazine (12HR) 500 mg Tablet PO ×2 (11:02→17:03)
[2024-07-24 11:11] LABS: Glucose Point of Care 212 mg/dL (70-110)
--- NOTE | 2024-07-24 11:22 | P.PN_ITS ---
Vitals/I&O/Wt Last Vital Signs Temp 97.6 F 07/24/24 11:14 Pulse 75 07/24/24 11:14 Resp 20 H 07/24/24 11:14 BP 157/72 07/24/24 11:14 Pulse Ox 95 07/24/24 11:14 O2 Del Method Nasal Cannula 07/24/24 11:14 O2 Flow Rate 2 07/24/24 07:36 07/23/24 07/24/24 07/24/24 22:59 06:59 14:59 Intake Total 1290 / 2009 360 / 2370 360 / 360 Output Total 1900 / 3100 1100 / 4200 Balance -610 / -1090 -740 / -1830 360 / 360 Weight last 48 hrs Weight 126.053 kg Weight 125.963 kg Weight 125.645 kg Weight 99.79 kg Physical Exam 2 Urinary Catheter Management: Sahu: Cath Placed During This Visit: yes Reason for Continuing Indwelling Catheter: Acute Urinary Retention or Obstruction Urinary Catheter Date of Insertion: 07/22/24 Urinary Catheter Time of Insertion: 17:34 Data 07/24/24 05:10 07/24/24 05:10 Micro: Microbiology 07/22/24 12:54 Urine Culture - Final Urine Catheterized 07/23/24 10:40 Gram Stain - Final Sputum - Expectorated Sputum Coding Level of Care Code Acute Code for Chg Marguerite
[2024-07-24] MEDS: insulin lispro 100 unit/1 mL SUBCUT ×3 (11:42→21:30)
[2024-07-24 16:50] LABS: Glucose Point of Care 198 mg/dL (70-110)
[2024-07-24] MEDS: AZITHROMYCIN ADD-Vantage 500 MG in 0.9% NaCl ADD-Vantage 250 ML 250 MG IV (17:02)
[2024-07-24] MEDS: cefTRIAXone 1,000 mg SDV 1000 MG IVP (17:06)
[2024-07-24 20:41] LABS: Glucose Point of Care 238 mg/dL (70-110)
[2024-07-24] MEDS: ropinirole 0.25 mg Tablet 0.5 MG PO (21:30)
[2024-07-24] MEDS: trazodone 50 mg Tablet PO (21:30)
[2024-07-24] MEDS: atorvastatin 40 mg Tablet 80 MG PO (21:30)
[2024-07-24] MEDS: tamsulosin 0.4 mg Capsule PO (21:30)
[2024-07-24] MEDS: acetaminophen 500 mg Tablet PO (21:31)
[2024-07-25] MEDS: HYDROcodone-acetaminophen 10-325 mg Tablet 1 TAB PO (00:42)
[2024-07-25 04:00] VITALS: BP 152/61; PULSE 74; RESP 20; TEMP 36.7; O2SAT 98
[2024-07-25] MEDS: heparin 5,000 unit/mL INJ 1 mL 5000 UNIT SUBCUT (04:35)
[2024-07-25] MEDS: methylPREDNISolone sod succ 40 mg/mL INJ IVP (04:35)
[2024-07-25 05:54] LABS: Basophils % 0.1 %; Hematocrit 28.5 % (36-47); Lymphocytes # 1.3 10^3/uL (0.8-4.8); Lymphocytes % 14.1 %; Mean Corpuscular HGB Conc 31.9 g/dL (30-55); Mean Corpuscular Hemoglobin 27.4 pg (27-33); Mean Corpuscular Volume 85.8 fl (85-98); Mean Platelet Volume 9.6 fL (7.4-10.4); Monocytes # 0.4 10^3/uL (0.2-0.9); Monocytes % 4.6 %; Neutrophils # 7.54 10^3/uL (1.8-7.7); Neutrophils % 80.8 %; Nucleated Red Blood Cells % 0 %; Platelet Count 362 10^3/cmm (157-399); Red Blood Count 3.32 10^6/uL (3.85-5.65); Red Cell Distribution Width 13.9 % (12.1-15.1); White Blood Count 9.34 10^3/uL (3.29-11.43)
[2024-07-25 06:12] LABS: Alanine Aminotransferase 6 U/L (0-33); Albumin Level 3.1 g/dL (3.5-5.2); Alkaline Phosphatase 91 U/L (35-105); Anion Gap 15.9 (5-19); Aspartate Amino Transferase 5 U/L (0-32); Blood Urea Nitrogen 40 mg/dL (8-23); Calcium 9.2 mg/dL (8.5-10.5); Carbon Dioxide 27 mmol/L (22-29); Chloride 97 mmol/L (98-107); Creatinine Clr Calc Pharmacy 54.5335; Globulin 2.8 g/dL (1.3-4.6); Glomerular Filtration Rate 38.2 mL/min (90-130); Glucose 163 mg/dL (65-115); Magnesium 2.1 mg/dL (1.7-2.3); Osmolality Calculated 295 mOsm/kg (285-295); Potassium 3.9 mmol/L (3.5-5.1); Sodium 136 mmol/L (136-145); Total Bilirubin 0.2 mg/dL (0.15-1.2); Total Protein 5.9 g/dL (6.6-8.7)
[2024-07-25] MEDS: insulin glargine 100 units/1 mL 30 UNIT SUBCUT (06:16)
[2024-07-25] MEDS: pantoprazole DR 40 mg Tablet PO (06:17)
[2024-07-25] MEDS: aspirin 81 mg EC Tablet PO (06:17)
[2024-07-25] MEDS: levothyroxine 50 mcg Tablet PO (06:17)
[2024-07-25] MEDS: ticagrelor 90 mg Tablet PO (06:17)
[2024-07-25 06:29] LABS: Glucose Point of Care 171 mg/dL (70-110)
[2024-07-25 08:03] VITALS: BP 153/96; PULSE 71; RESP 18; TEMP 36.6; O2SAT 96
[2024-07-25] MEDS: insulin lispro 100 unit/1 mL SUBCUT (08:29)
[2024-07-25] MEDS: isosorbide mononitrate ER 60 mg Tablet PO (08:30)
[2024-07-25] MEDS: ranolazine (12HR) 500 mg Tablet PO (08:31)
[2024-07-25] MEDS: metoprolol tartrate 50 mg Tablet PO (08:31)
[2024-07-25 09:25] VITALS: PULSE 78; RESP 16; O2SAT 99
[2024-07-25] MEDS: ipratropium-albuterol 3 mL Neb INHALATION (09:29)
[2024-07-25 09:35] VITALS: PULSE 82
[2024-07-25 11:24] LABS: Glucose Point of Care 292 mg/dL (70-110)
[2024-07-25 11:53] VITALS: BP 163/53; PULSE 77; RESP 17; TEMP 36.6; O2SAT 92
--- NOTE | 2024-07-25 11:59 | PM.DCS ---
Discharge Providers Date of Admission: 07/22/24 16:17 Date of Discharge: July 25, 2024 Attending Provider at Admission: Ruthy Chang MD Attending Provider at Discharge: Ruthy Chang MD Primary Care Provider: Niko Jerez MD Diagnoses at Discharge Discharge Diagnosis (1) CHF (congestive heart failure): Status: Acute Qualifiers: Heart failure chronicity: acute on chronic Heart failure type: systolic Qualified Code(s): I50.23 - Acute on chronic systolic (congestive) heart failure (2) DM type 2 (diabetes mellitus, type 2): Status: Acute Qualifiers: Diabetes mellitus complication status: without complication Diabetes mellitus prison insulin use: without 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 Qualified Code(s): E11.9 - Type 2 diabetes mellitus without complications (3) Obesity: Status: Acute (4) GERD (gastroesophageal reflux disease): Status: Chronic (5) Chronic kidney disease (CKD): Status: Chronic Qualifiers: Chronic kidney disease stage: stage 3 (moderate) Chronic kidney disease stage 3 subtype: stage 3a (GFR 45-59) Qualified Code(s): N18.31 - Chronic kidney disease, stage 3a (6) Chronic cystitis: Status: Acute (7) RSV bronchiolitis: Status: Acute (8) Sleep apnea in adult: Status: Acute Reason for Visit Reason for Visit: SOB Hospital Course Hospital Course Presented for shortness of breath and diagnosed with RSV pneumonia. CT chest also shows possible bacterial pneumonia. He was kept on IV antibiotics in the hospital. Also diuresed as there was concern for CHF exacerbation. Patient feels well today and will be sent back to [facility]. She has been clearing secretions now and able to expectorate. Has been given incentive spirometer and flutter valve. Urinalysis urine culture was obtained however did not show any growth. She will be sent back to [facility]. Echo was obtained which showed similar results compared to previous echo in April. Physical Exam HENMT: COMMON NORMALS: normocephalic and atraumatic HEAD & SCALP: normocephalic and atraumatic Eye: COMMON NORMALS: EOMs intact bilaterally and conjunctivae normal CONJUNCTIVA: Yes conjunctivae normal Resp: AUSCULTATION: rales and wheezes Cardio: COMMON NORMALS: regular rate, regular rhythm, S1 normal heart sound present, S2 normal heart sound present and No murmurs present (Cardio) RATE: regular rate RHYTHM: regular rhythm HEART SOUNDS: S1 normal heart sound present and S2 normal heart sound present Extremity: NARRATIVE EXTREMITY EXAM: Generalized anasarca however appears to be improved. Urinary Catheter Management: Sahu: Cath Placed During This Visit: yes Reason for Continuing Indwelling Catheter: Acute Urinary Retention or Obstruction Urinary Catheter Date of Insertion: 07/22/24 Urinary Catheter Time of Insertion: 17:34 Discharge Data Studies Completed and Pending Completed Studies During Hospitalization Category Date Time Status CT chest wo con [id number] Routine Cat Scan 07/23/24 13:24 Completed XR chest 1V portable [id number] Stat Exams 07/22/24 11:58 Completed US echo complete [CV. echo complete* [id number]] Routine Ultrasound 07/22/24 16:05 Completed Pending at discharge Category Date Time Status Sputum Culture and Gram Stain Stat Lab 07/23/24 10:40 Results Radiology Impressions Chest X-Ray 07/22/24 11:58 IMPRESSION: Significant cardiomegaly as above. Focal right lung opacity as above. Recommend repeat chest x-ray with better inspiration and check for overlying artifact. Chest CT 07/23/24 13:24 IMPRESSION: 1. Opacity described on the recent chest radiograph appears to represent subsegmental atelectasis with a few hazy opacities in the lingula and perihilar regions bilaterally, and RIGHT middle lobe. This may be infectious or inflammatory. 2. No focal pneumonia or consolidation. 3. Subsegmental atelectasis in the RIGHT middle lobe and LEFT greater than RIGHT lower lobes. 4. Calcified granulomas LEFT lower lobe. 5. Cardiomegaly. 6. Coronary calcification. 7. Dense vascular calcification in the upper abdomen. Laboratory Results WBC 9.34 10^3/uL (3.29-11.43) 07/25/24 05:45 RBC 3.32 10^6/uL (3.85-5.65) L 07/25/24 05:45 Hgb 9.10 g/dL (11.27-16.99) L 07/25/24 05:45 Hct 28.5 % (36-47) L 07/25/24 05:45 MCV 85.8 fl (85-98) 07/25/24 05:45 MCH 27.4 pg (27-33) 07/25/24 05:45 MCHC 31.9 g/dL (30-55) 07/25/24 05:45 RDW 13.9 % (12.1-15.1) 07/25/24 05:45 Plt Count 362 10^3/cmm (157-399) 07/25/24 05:45 MPV 9.6 fL (7.4-10.4) 07/25/24 05:45 Neut % (Auto) 80.8 % 07/25/24 05:45 Lymph % (Auto) 14.1 % 07/25/24 05:45 [place] % (Auto) 4.6 % 07/25/24 05:45 Eos % (Auto) 0.0 % 07/25/24 05:45 Baso % (Auto) 0.1 % 07/25/24 05:45 Neut # (Auto) 7.54 10^3/uL (1.8-7.7) 07/25/24 05:45 Lymph # (Auto) 1.3 10^3/uL (0.8-4.8) 07/25/24 05:45 [place] # (Auto) 0.4 10^3/uL (0.2-0.9) 07/25/24 05:45 Eos # (Auto) 0.0 10^3/uL (0.0-0.8) 07/25/24 05:45 Baso # (Auto) 0.0 10^3/uL (0.0-0.1) 07/25/24 05:45 Nucleated RBC % (auto) 0 % 07/25/24 05:45 Nucleated RBCs # 0.0 /100WBC 07/25/24 05:45 Sodium 136 mmol/L (136-145) 07/25/24 05:45 Potassium 3.9 mmol/L (3.5-5.1) 07/25/24 05:45 Chloride 97 mmol/L (98-107) L 07/25/24 05:45 Carbon Dioxide 27 mmol/L (22-29) 07/25/24 05:45 Anion Gap 15.9 (5-19) 07/25/24 05:45 BUN 40 mg/dL (8-23) H 07/25/24 05:45 Creatinine 1.4 mg/dL (0.5-0.9) H 07/25/24 05:45 GFR Calculation 38.2 mL/min (90-130) L 07/25/24 05:45 Glucose 163 mg/dL (65-115) H 07/25/24 05:45 POC Glucose 292 mg/dL (70-110) H 07/25/24 10:58 Calculated Osmolality 295 mOsm/kg (285-295) 07/25/24 05:45 Calcium 9.2 mg/dL (8.5-10.5) 07/25/24 05:45 Magnesium 2.1 mg/dL (1.7-2.3) 07/25/24 05:45 Total Bilirubin 0.2 mg/dL (0.15-1.2) 07/25/24 05:45 AST 5 U/L (0-32) 07/25/24 05:45 ALT 6 U/L (0-33) 07/25/24 05:45 Alkaline Phosphatase 91 U/L (35-105) 07/25/24 05:45 Troponin T Baseline 118 ng/L (0-10) H* 07/23/24 13:46 Troponin T 120 Minute 117.2 ng/L (0-10) H 07/23/24 15:40 Delta Troponin T -0.8 ABS# (0-10) L 07/23/24 15:40 Troponin T Hi Sens 6Hr 116.0 ng/L (0-10) H 07/23/24 19:29 Troponin T Hi Sens 6Hr Delta -2.0 ng/L (0-12) L 07/23/24 19:29 Total Protein 5.9 g/dL (6.6-8.7) L 07/25/24 05:45 Albumin 3.1 g/dL (3.5-5.2) L 07/25/24 05:45 Globulin 2.8 g/dL (1.3-4.6) 07/25/24 05:45 Procalcitonin 0.15 ng/mL (0-0.5) 07/23/24 04:58 TSH 8.35 uIU/mL (0.27-4.20) H 07/22/24 12:12 Urine Color Yellow (Yellow) 07/22/24 12:54 Urine Appearance Cloudy (CLEAR) A 07/22/24 12:54 Urine pH 5.5 (5-7) 07/22/24 12:54 Ur Specific [place] 1.015 (1.005-1.030) 07/22/24 12:54 Urine Protein 2+ (Negative) A 07/22/24 12:54 Urine Glucose (UA) Negative (Normal) 07/22/24 12:54 Urine Ketones Negative (Negative) 07/22/24 12:54 Urine Blood 1+ (Negative) A 07/22/24 12:54 Urine Nitrate Negative (Negative) 07/22/24 12:54 Urine Bilirubin Negative (Negative) 07/22/24 12:54 Urine Urobilinogen 1.0 mg/dL (Negative) 07/22/24 12:54 Ur Leukocyte Esterase 2+ (Negative) A 07/22/24 12:54 Urine RBC 0-2 /hpf (0-2) 07/22/24 12:54 Urine WBC >100 /hpf (0-5) H 07/22/24 12:54 Ur Squamous Epith Cells 0-5 /hpf (0-5) 07/22/24 12:54 Amorphous Sediment Not Reportable 07/22/24 12:54 Urine Bacteria None seen /hpf (NONE) 07/22/24 12:54 Hyaline Casts 12.41 /lpf 07/22/24 12:54 Adenovirus (PCR) Not detected (NOT DETECT) 07/22/24 14:16 C. pneumoniae DNA (PCR) Not detected (NOT DETECT) 07/22/24 14:16 Coronavirus 229E (PCR) Not detected (NOT DETECT) 07/22/24 14:16 Human Metapneumovir PCR Not detected (NOT DETECT) 07/22/24 14:16 Influenza A (H1) PCR Not detected (NOT DETECT) 07/22/24 14:16 Influ A (H1/09) PCR Not detected (NOT DETECT) 07/22/24 14:16 Influenza A (H3) PCR Not detected (NOT DETECT) 07/22/24 14:16 Influenza Type A (PCR) Not detected (NOT DETECT) 07/22/24 14:16 Influenza Type B (PCR) Not detected (NOT DETECT) 07/22/24 14:16 M. pneumoniae (PCR) Not detected (NOT DETECT) 07/22/24 14:16 Parainfluenza 1 (PCR) Not detected (NOT DETECT) 07/22/24 14:16 Parainfluenza 2 (PCR) Not detected (NOT DETECT) 07/22/24 14:16 Parainfluenza 3 (PCR) Not detected (NOT DETECT) 07/22/24 14:16 Parainfluenza 4 (PCR) Not detected (NOT DETECT) 07/22/24 14:16 RSV Type A (PCR) Detected (NOT DETECT) A 07/22/24 14:16 RSV Type B (PCR) Not detected (NOT DETECT) 07/22/24 14:16 Entero/Rhino (PCR) Not detected (NOT DETECT) 07/22/24 14:16 SARS-CoV-2 (PCR) Not detected (NOT DETECT) 07/22/24 14:16 Vitals Last Vital Signs Temp 97.8 F 07/25/24 11:53 Pulse 77 07/25/24 11:53 Resp 17 07/25/24 11:53 BP 163/53 07/25/24 11:53 Pulse Ox 92 07/25/24 11:53 O2 Del Method Nasal Cannula 07/25/24 11:53 O2 Flow Rate 2 07/25/24 09:25 Discharge Plan Discharge Patient Disposition: Xfer SNF Condition: Stable Prescriptions: New cefdinir 300 mg capsule 300 mg PO BID 4 Days Qty: 8 0RF azithromycin 500 mg tablet 500 mg PO DAILY 4 Days Qty: 4 0RF Continued (DME) walker with seat and brakes See Rx Instructions .Route .MEDSUPPLY Qty: 1 0RF Rx Instructions: As directed (DME) InPen (for Humalog) Insulin Pen See Rx Instructions .Route Qty: 150 0RF Rx Instructions: qid to inject insulin (DME) diabetic shoes and inserts See Rx Instructions .Route .MEDSUPPLY Qty: 1 0RF Rx Instructions: As directed (DME) lancets [BD Ultra Fine Lancets] 33 gauge misc See Rx Instructions .Route Qty: 100 1RF Rx Instructions: As directed (DME) insulin syringe-needle U-100 [BD Veo Insulin Syringe UF] 1/2 mL 31 gauge x 15/64 syringe See Rx Instructions .ROUTE .MEDSUPPLY Qty: 100 2RF Rx Instructions: As directed pantoprazole 40 mg tablet,delayed release (DR/EC) 40 mg PO QAM hydrocodone-acetaminophen 10-325 mg tablet 1 tab PO Q6H PRN (Reason: Pain, Moderate) Ozempic 0.25 mg or 0.5 mg (2 mg/3 mL) pen injector 0.5 mg SUBCUT Q7D Rx Instructions: on Monday tamsulosin 0.4 mg capsule 0.4 mg PO BEDTIME@22 ropinirole 0.5 mg tablet 0.5 mg PO BEDTIME@22 Qty: 30 2RF (DME) oxygen tubing See Rx Instructions .Route .MEDSUPPLY Qty: 1 0RF Rx Instructions: [place], [place] [place] ASO to RIGHT See Rx Instructions .Route .MEDSUPPLY Qty: 1 0RF Rx Instructions: As directed ([facility] [place] wheel-chair with foot rest See Rx Instructions .Route .MEDSUPPLY Qty: 1 0RF Rx Instructions: As directed by HOME levothyroxine 25 mcg capsule 25 mcg PO QAM trazodone 50 mg tablet 50 mg PO BEDTIME (DME) Accu-Chek Guide test strips Strip See Rx Instructions .Route Qty: 100 5RF Rx Instructions: As directed; to test 5 x daily (DME) Incontinence Supplies See Rx Instructions .Route .MEDSUPPLY Qty: 1 0RF Rx Instructions: As directed calcium carbonate [Tums] 200 mg calcium (500 mg) Tablet,Chewable 1,000 mg PO DAILY PRN (Reason: Stomach Upset) nitroglycerin [Nitrostat] 0.4 mg Tablet, Sublingual 0.4 mg SUBLINGUAL Q5M PRN (Reason: Chest Pain) Rx Instructions: do not exceed 3 doses per episode potassium chloride 10 mEq tablet extended release 10 meq PO DAILY@07 cholecalciferol (vitamin D3) 1,250 mcg (50,000 unit) capsule 50,000 unit PO Q7D Rx Instructions: Takes on Sat bupropion HCl 200 mg tablet sustained-release 12 hr 200 mg PO BID insulin lispro [Humalog KwikPen Insulin] 100 unit/mL insulin pen 29 sliding scale dose SUBCUT TID ranolazine 500 mg Tablet Extended Release 12 Hr 500 mg PO BID Qty: 60 0RF isosorbide mononitrate 60 mg tablet extended release 24 hr 60 mg PO DAILY insulin glargine [Lantus Solostar U-100 Insulin] 100 unit/mL (3 mL) insulin pen 30 unit SUBCUT QAM acetaminophen 650 mg Tablet Extended Release 1,300 mg PO Q8H PRN (Reason: Pain) aspirin 81 mg Tablet,Delayed Release (Dr/Ec) 81 mg PO DAILY@07 Qty: 60 0RF Brilinta 90 mg tablet 90 mg PO BID@07,22 Qty: 120 0RF metoprolol tartrate 50 mg tablet 50 mg PO BID Qty: 60 3RF bumetanide 2 mg tablet 2 mg PO DAILY Qty: 60 3RF atorvastatin 80 mg Tablet 80 mg PO BEDTIME ondansetron HCl 4 mg Tablet 4 mg PO Q4H PRN (Reason: Nausea And Vomiting) phenazopyridine [Pyridium] 100 mg tablet 200 mg PO Q8H PRN (Reason: dysuria) Discharge Orders: Discharge Order (Routine); Ordered 07/25/24 Ordered By: Ruthy Chang Referrals: Niko Jerez MD [Primary Care Provider] - 4-7 days Discharge Diet: Cardiac and Diabetic Discharge Activity: Resume usual activity Discharge Attestations Time Spent in Discharge Care*: greater than 30 min Status at Discharge: Cognitive status at discharge: cognitively intact, Behavioral status at discharge: cooperative, Quality Metrics Clinical Quality Measures [ No reported AMI, CVA or VTE this stay] Coding Level of Care Code Acute Code for Chg Fwd Diagnoses Acute on chronic systolic congestive heart failure I50.23 Heart failure chronicity: acute on chronic Heart failure type: systolic Type 2 diabetes mellitus without complication, without long-term current use of insulin E11.9 Diabetes mellitus complication status: without complication Diabetes mellitus prison insulin use: without prison use Obesity E66.9 GERD (gastroesophageal reflux disease) K21.9 Stage 3a chronic kidney disease N18.31 Chronic kidney disease stage: stage 3 (moderate) Chronic kidney disease stage 3 subtype: stage 3a (GFR 45-59) Chronic cystitis N30.20 RSV bronchiolitis J21.0 Sleep apnea in adult G47.30
[2024-07-25 12:31] LABS: SARS Covid-2 Antigen negative (Negative)
== END 2024-07-25 13:30 | disposition skilled nursing facility (03) | DRG 193 ==
LOC: ER 16:17 → ER IP 16:18 → MEDSURG 07-23 00:37
PROVIDERS: Admitting Provider Internal Medicine; Emergency Provider Family Medicine; PCP Internal Medicine; Visit Provider Internal Medicine
DX: J12.1 Respiratory syncytial virus pneumonia (principal); I50.23 Acute on chronic systolic (congestive) heart failure; I13.0 Hypertensive heart and chronic kidney disease with heart failure and stage 1 through stage 4 chronic kidney disease, or unspecified chronic kidney disease; Z68.42 Body mass index [BMI] 45.0-49.9, adult; J21.0 Acute bronchiolitis due to respiratory syncytial virus; N18.31 Chronic kidney disease, stage 3a; E11.42 Type 2 diabetes mellitus with diabetic polyneuropathy; I25.10 Atherosclerotic heart disease of native coronary artery without angina pectoris; E11.22 Type 2 diabetes mellitus with diabetic chronic kidney disease; N30.21 Other chronic cystitis with hematuria; E03.9 Hypothyroidism, unspecified; E78.5 Hyperlipidemia, unspecified; F41.8 Other specified anxiety disorders; G89.29 Other chronic pain; G25.81 Restless legs syndrome; K21.9 Gastro-esophageal reflux disease without esophagitis; G47.33 Obstructive sleep apnea (adult) (pediatric); E66.01 Morbid (severe) obesity due to excess calories; M81.0 Age-related osteoporosis without current pathological fracture; Z96.659 Presence of unspecified artificial knee joint; Z66 Do not resuscitate; Z79.85 Long-term (current) use of injectable non-insulin antidiabetic drugs; Z79.4 Long term (current) use of insulin; Z79.891 Long term (current) use of opiate analgesic; Z79.890 Hormone replacement therapy; Z95.5 Presence of coronary angioplasty implant and graft; I25.2 Old myocardial infarction; Z74.01 Bed confinement status; Z86.73 Personal history of transient ischemic attack (TIA), and cerebral infarction without residual deficits; Z86.711 Personal history of pulmonary embolism; Z90.49 Acquired absence of other specified parts of digestive tract; Z90.710 Acquired absence of both cervix and uterus; Z11.52 Encounter for screening for COVID-19
CPT/HCPCS: 36415; 36416; 51701; 51702; 71045; 71250; 80048; 80053; 81001; 82962; 83735; 84145; 84443; 84484; 85025; 87070; 87086; 87205; 87426; 87486; 87581; 87633; 93005; 93306; 94640; 96372; 97161; 97530; 99285; J0456; J0696; J1100; J1644; J1815; J1940; J2919; J7050

== ENCOUNTER → 2024-08-14 14:38 | Outpatient (BNVA) | payer MEDICAID, SELFPAY | PROVIDERS: PCP Internal Medicine; Visit Provider Internal Medicine Cardiovascular Disease | DX: I25.10 Atherosclerotic heart disease of native coronary artery without angina pectoris (principal); E78.5 Hyperlipidemia, unspecified; I13.0 Hypertensive heart and chronic kidney disease with heart failure and stage 1 through stage 4 chronic kidney disease, or unspecified chronic kidney disease; E11.22 Type 2 diabetes mellitus with diabetic chronic kidney disease; N18.9 Chronic kidney disease, unspecified; I50.9 Heart failure, unspecified; Z79.4 Long term (current) use of insulin | CPT/HCPCS: 99214 ==

== ENCOUNTER 2024-09-12 08:56 | Inpatient (IN) | payer MEDICARE, MEDICAID, SELFPAY ==
[2024-09-12] VITALS (29 sets, daily range): BP systolic 125–202; BP diastolic 62–121; PULSE 89–103; RESP 16–35; TEMP 36.8–37.1; O2SAT 87–100; BMI 51.3
--- NOTE | 2024-09-12 09:00 | ECG_ITS ---
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 Measurements Intervals [place] Rate: 96 P: 52 [place]: 125 QRS: 69 QRSD: 97 T: -41 QT: 332 QTc: 420 Interpretive Statements SINUS RHYTHM ST DEVIATION AND MODERATE T-WAVE ABNORMALITY, CONSIDER INFERIOR ISCHEMIA [-0.1+ mV T-WAVE IN II/aVF] Compared to ECG 07/23/2024 20:59:08 T-wave abnormality now present Possible ischemia now present Myocardial infarct finding no longer present Electronically Signed On 09-14-2024 18:06:10 HEAD [facility] WAITRESS by Jaiden Newell M.D. [email or web address]
--- NOTE | 2024-09-12 09:11 | XR_ITS ---
WS: [id number] XR chest 1V portable [id number] REASON FOR EXAM: Chest pain FINDINGS: Chest is unchanged compared to 04/29/2024. There is mild cardiomegaly. There are multiple coronary artery stents. There is calcified granulomatous disease bilaterally. No acute pulmonary parenchymal or pleural abnormality is identified. Moderate degenerative spondylosis in the mid and lower thoracic spine. XR/XR chest 1V portable [id number] IMPRESSION: Stable chest without acute abnormality identified.
--- NOTE | 2024-09-12 09:23 | W.ED.NAVMDI ---
HPI - Nausea/Vomiting/Diarrhea General: Chief complaint: Nausea/Vomiting/Diarrhea Stated complaint: chest pain, n/v Time Seen by Provider: 09/12/24 08:57 History of Present Illness: 63-year-old female who presents to the emergency room with complaints of chest pain nausea vomiting and diarrhea. She does not have any hemoptysis or coffee-ground emesis. She has a history of coronary disease previously has had intervention. Pain has been going on since yesterday. Normally does not wear oxygen is not requiring 2 L by nothing exacerbates or relieves. Nasal cannula to maintain sats in the low 90s. Still having chest pain without radiation she is also complaining some vague abdominal pain. Associated symtoms: Reports chest pain; Denies dysuria Related Data Home Medications ?Medication ?Instructions ?Recorded ?Confirmed tamsulosin 0.4 mg capsule 0.4 mg PO BEDTIME@01/06/23 09/12/24 cholecalciferol (vitamin D3) 1,250 50,000 unit PO Q7D 01/18/23 09/12/24 mcg (50,000 unit) capsule nitroglycerin 0.4 mg sublingual 0.4 mg sublingual Q5M PRN Chest 01/18/23 09/12/24 tablet (Nitrostat) Pain potassium chloride 10 mEq 10 meq PO DAILY@01/18/23 09/12/24 tablet,extended release levothyroxine 25 mcg capsule 50 mcg PO QAM 05/08/23 09/12/24 hydrocodone 10 mg-acetaminophen 1 tab PO Q6H PRN Pain, Moderate 09/07/23 09/12/24 325 mg tablet pantoprazole 40 mg tablet,delayed 40 mg PO QAM 09/07/23 09/12/24 release trazodone 50 mg tablet 50 mg PO BEDTIME 09/07/23 09/12/24 bupropion HCl 200 mg tablet,12 hr 200 mg PO BID 09/14/23 09/12/24 sustained-release insulin lispro 100 unit/mL 29 sliding scale dose SUBCUT TID 09/14/23 09/12/24 subcutaneous pen (Humalog KwikPen (U-100) Insulin) acetaminophen 650 mg 1,300 mg PO Q8H PRN Pain 11/14/23 09/12/24 tablet,extended release insulin glargine 100 unit/mL (3 30 unit SUBCUT QAM 02/28/24 09/12/24 mL) subcutaneous pen (Lantus Solostar U-100 Insulin) isosorbide mononitrate 60 mg 60 mg PO DAILY 02/28/24 09/12/24 tablet,extended release 24 hr atorvastatin 80 mg tablet 80 mg PO BEDTIME 07/22/24 09/12/24 ondansetron HCl 4 mg tablet 4 mg PO Q4H PRN Nausea And Vomiting 07/22/24 09/12/24 albuterol sulfate 2.5 mg/3 mL 2.5 mg inhalation Q4H PRN 08/14/24 09/12/24 (0.083 %) solution for nebulization Shortness Of Breath Or Wheezing calcium carbonate 1,000 mg PO DAILY 09/12/24 09/12/24 docusate sodium 100 mg capsule 100 mg PO BID 09/12/24 09/12/24 phenazopyridine 200 mg tablet 200 mg PO Q8H PRN Urinary Retention 09/12/24 09/12/24 Previous Rx's ?Medication ?Instructions ?Recorded ropinirole 0.5 mg tablet 0.5 mg PO BEDTIME@22 #30 tabs 01/24/23 aspirin 81 mg tablet,delayed 81 mg PO DAILY@07 #60 tabs 11/23/23 release ticagrelor 90 mg tablet (Brilinta) 90 mg PO BID@07,22 #120 tabs 11/23/23 ranolazine 500 mg tablet,extended 500 mg PO BID #60 tabs 12/22/23 release,12 hr bumetanide 2 mg tablet 2 mg PO DAILY #60 tabs 03/24/24 metoprolol tartrate 50 mg tablet 50 mg PO BID #60 tabs 03/24/24 Allergies Allergy/AdvReac Type Severity Reaction Status Date / Time hyoscyamine Allergy Severe ADR-Itching Verified 08/14/24 15:08 cefdinir Allergy Unknown Verified 08/14/24 15:08 ciprofloxacin (From Cipro) Allergy hives Verified 08/14/24 15:08 citalopram Allergy effects Verified 08/14/24 15:08 speach and memory clopidogrel (From Plavix) Allergy unk Verified 08/14/24 15:08 coconut Allergy Unknown Verified 08/14/24 15:08 ibuprofen Allergy RASH/ Verified 08/14/24 15:08 SWELLING famotidine AdvReac Mild itching Verified 08/14/24 15:08 esomeprazole (From Nexium) AdvReac Unknown Verified 08/14/24 15:08 Review of Systems Const: Denies: fever(s) or chills Card: Reports: chest pain Resp: Denies: dyspnea GI: Denies: abdominal pain : Denies: dysuria, urinary frequency or urinary urgency Musc: Denies: neck pain or back pain Skin/Breast: Denies: rash PFSH ED PFSH: Medical History (Updated 09/12/24 @ 17:53 by James Sharma, DO) Otitis media, unspecified, bilateral Elevated troponin CAD (coronary artery disease) Non-ST elevation [place] (NSTEMI) DM type 2 (diabetes mellitus, type 2) Unstable angina pectoris Acute kidney injury CHF (congestive heart failure) Chest pain Status post left heart catheterization (LHC) Groin hematoma Left ACL tear Fracture of fifth toe, left, closed Derangement of lateral meniscus of right knee Derangement of medial meniscus of right knee Chronic kidney disease (CKD) Lumbar stenosis with neurogenic claudication Inability to walk Renal failure Chronic cystitis with hematuria Inability to urinate Atherosclerotic heart disease of [place] coronary artery with other forms of angina pectoris Lower extremity weakness Depression with anxiety Coronary artery disease due to type 2 diabetes mellitus Morbid obesity Generalized muscle weakness Type 2 diabetes mellitus with diabetic polyneuropathy Diabetes mellitus Small bowel strangulation Dyslipidemia Chronic cystitis Gross hematuria Osteoporosis Morbid obesity Constipation Migraine headache Bilateral lower extremity edema RLS (restless legs syndrome) GERD (gastroesophageal reflux disease) BETH (obstructive sleep apnea) CVA (cerebral vascular accident) HTN (hypertension) Pulmonary embolism, bilateral Opioid contract exists Long-term use of high-risk medication Chronic low back pain Surgical History Status post coronary artery stent placement Status post lumbar laminectomy H/O heart artery stent S/P hysterectomy S/P tonsillectomy and adenoidectomy S/P appendectomy S/P cholecystectomy Hx of total knee replacement History of partial surgical removal of colon Family History Grandfather Cancer Family/Other Myocardial infarct MOTHER, FATHER, BROTHER, SISTER Hypertension Diabetes Mother , at age 66 CAD (coronary artery disease) Father , at age 74 CAD (coronary artery disease) Sister CAD (coronary artery disease) Brother CAD (coronary artery disease) Other Stroke Denies family history of Anesthesia complication Bleeding disorder Social History Smoking and tobacco/nicotine status: never used tobacco/nicotine Alcohol intake: never Substance/Drug Use: current Substance/Drug use frequency: other Other substance/drug use details: smokes medical marijauna occasionally at night to help her sleep Lives independently: Yes Marital status: Current occupational status: disabled Current gender identity: Female Special vik needs: No Physical Exam Const: GENERAL APPEARANCE: cooperative ORIENTATION/CONSCIOUSNESS: Yes awake HENMT: COMMON NORMALS: normocephalic, atraumatic and hearing grossly normal bilaterally HEAD & SCALP: normocephalic and atraumatic Resp: COMMON NORMALS: normal respiratory effort, No retractions, No use of accessory muscles and clear to auscultation bilaterally AUSCULTATION: clear to auscultation bilaterally Cardio: COMMON NORMALS: regular rate, regular rhythm and No murmurs present (Cardio) RATE: regular rate RHYTHM: regular rhythm GI: COMMON NORMALS: Soft to palpation and No hepatosplenomegaly present AUSCULTATION: Yes normoactive bowel sounds PALPATION: Yes Soft to palpation, No Tenderness to palpation present (GI), No Guarding due to palpation present (GI) and Yes No hepatosplenomegaly present Extremity: COMMON NORMALS: normal to inspection, capillary refill normal, no clubbing, cyanosis or edema, no calf tenderness and no pedal edema Skin: COMMON NORMALS: no rashes or lesions noted GENERAL SKIN EXAM: no rashes or lesions noted Course Vital Signs: Vital signs: Vital Signs Temperature 98.2 F 09/12/24 09:08 Pulse Rate 98 09/12/24 15:39 Respiratory Rate 22 H 09/12/24 09:08 Blood Pressure 185/91 09/12/24 15:39 Pulse Oximetry 93 09/12/24 15:39 Oxygen Delivery Me thod Nasal Cannula 09/12/24 15:39 Oxygen Flow Rate 2 09/12/24 15:39 MDM - Nausea/Vomiting/Diarrhea Medical Decision Making Labs imaging and EKG reviewed as found on the chart. EKG shows sinus rhythm with nonspecific ST changes. Chest pain with slight elevation in cardiac enzymes. Known coronary disease. Previous stenting in April 2020 for 1 lesion was dilated but not stented. Discussed with Dr. Newell and he recommends placed on observation will consult on patient Medical Records I reviewed the patient's medical records. Lab Data I reviewed the patient's lab results. 09/12/24 10:13 09/12/24 10:13 Radiology Impressions Chest X-Ray 09/12/24 09:11 IMPRESSION: Stable chest without acute abnormality identified. Laboratory Results WBC 12.43 10^3/uL (3.29-11.43) H 09/12/24 10:13 RBC 3.72 10^6/uL (3.85-5.65) L 09/12/24 10:13 Hgb 10.20 g/dL (11.27-16.99) L 09/12/24 10:13 Hct 32.6 % (36-47) L 09/12/24 10:13 MCV 87.6 fl (85-98) 09/12/24 10:13 MCH 27.4 pg (27-33) 09/12/24 10:13 MCHC 31.3 g/dL (30-55) 09/12/24 10:13 RDW 15.3 % (12.1-15.1) H 09/12/24 10:13 Plt Count 305 10^3/cmm (157-399) 09/12/24 10:13 MPV 9.5 fL (7.4-10.4) 09/12/24 10:13 Neut % (Auto) 84.3 % 09/12/24 10:13 Lymph % (Auto) 9.0 % 09/12/24 10:13 [place] % (Auto) 5.0 % 09/12/24 10:13 Eos % (Auto) 1.1 % 09/12/24 10:13 Baso % (Auto) 0.3 % 09/12/24 10:13 Neut # (Auto) 10.47 10^3/uL (1.8-7.7) H 09/12/24 10:13 Lymph # (Auto) 1.1 10^3/uL (0.8-4.8) 09/12/24 10:13 [place] # (Auto) 0.6 10^3/uL (0.2-0.9) 09/12/24 10:13 Eos # (Auto) 0.1 10^3/uL (0.0-0.8) 09/12/24 10:13 Baso # (Auto) 0.0 10^3/uL (0.0-0.1) 09/12/24 10:13 Nucleated RBC % (auto) 0 % 09/12/24 10:13 Nucleated RBCs # 0.0 /100WBC 09/12/24 10:13 D-Dimer 2.29 ug/mLFEU (0-0.59) H 09/12/24 10:13 Sodium 140 mmol/L (136-145) 09/12/24 10:13 Potassium 4.3 mmol/L (3.5-5.1) 09/12/24 10:13 Chloride 102 mmol/L (98-107) 09/12/24 10:13 Carbon Dioxide 27 mmol/L (22-29) 09/12/24 10:13 Anion Gap 15.3 (5-19) 09/12/24 10:13 BUN 45 mg/dL (8-23) H 09/12/24 10:13 Creatinine 1.5 mg/dL (0.5-0.9) H 09/12/24 10:13 GFR Calculation 35.3 mL/min (90-130) L 09/12/24 10:13 Glucose 277 mg/dL (65-115) H 09/12/24 10:13 Calculated Osmolality 311 mOsm/kg (285-295) H 09/12/24 10:13 Calcium 9.4 mg/dL (8.5-10.5) 09/12/24 10:13 Total Bilirubin 0.6 mg/dL (0.15-1.2) 09/12/24 10:13 AST 9 U/L (0-32) 09/12/24 10:13 ALT 8 U/L (0-33) 09/12/24 10:13 Alkaline Phosphatase 116 U/L (35-105) H 09/12/24 10:13 Troponin T Baseline 116 ng/L (0-10) H* 09/12/24 10:13 Troponin T 120 Minute 122.3 ng/L (0-10) H 09/12/24 12:09 Delta Troponin T 6.3 ABS# (0-10) 09/12/24 12:09 Total Protein 6.3 g/dL (6.6-8.7) L 09/12/24 10:13 Albumin 3.8 g/dL (3.5-5.2) 09/12/24 10:13 Globulin 2.5 g/dL (1.3-4.6) 09/12/24 10:13 Procalcitonin 0.12 ng/mL (0-0.5) 09/12/24 10:13 All radiology interpretation(s) finalized by discharge Discharge Plan Discharge Patient Disposition: Placed in Observation Admit Provider: Clovis Szymanski Clinical Impression: Elevated troponin, Anemia Condition: Stable Coding Level of Care Code ED Agents' Records Clerk for Romie Everett
[2024-09-12] MEDS: aspirin 81 mg Chew Tablet 324 MG PO (09:41)
--- NOTE | 2024-09-12 09:45 | PC.PHAR ---
patient is from [facility]
[2024-09-12 10:20] LABS: Basophils % 0.3 %; Eosinophils # 0.1 10^3/uL (0.0-0.8); Eosinophils % 1.1 %; Hematocrit 32.6 % (36-47); Lymphocytes # 1.1 10^3/uL (0.8-4.8); Mean Corpuscular HGB Conc 31.3 g/dL (30-55); Mean Corpuscular Hemoglobin 27.4 pg (27-33); Mean Corpuscular Volume 87.6 fl (85-98); Mean Platelet Volume 9.5 fL (7.4-10.4); Monocytes # 0.6 10^3/uL (0.2-0.9); Neutrophils # 10.47 10^3/uL (1.8-7.7); Neutrophils % 84.3 %; Nucleated Red Blood Cells % 0 %; Platelet Count 305 10^3/cmm (157-399); Red Blood Count 3.72 10^6/uL (3.85-5.65); Red Cell Distribution Width 15.3 % (12.1-15.1); White Blood Count 12.43 10^3/uL (3.29-11.43)
[2024-09-12 10:50] LABS: Alanine Aminotransferase 8 U/L (0-33); Albumin Level 3.8 g/dL (3.5-5.2); Alkaline Phosphatase 116 U/L (35-105); Anion Gap 15.3 (5-19); Aspartate Amino Transferase 9 U/L (0-32); Blood Urea Nitrogen 45 mg/dL (8-23); Calcium 9.4 mg/dL (8.5-10.5); Carbon Dioxide 27 mmol/L (22-29); Chloride 102 mmol/L (98-107); Globulin 2.5 g/dL (1.3-4.6); Glomerular Filtration Rate 35.3 mL/min (90-130); Glucose 277 mg/dL (65-115); Osmolality Calculated 311 mOsm/kg (285-295); Potassium 4.3 mmol/L (3.5-5.1); Sodium 140 mmol/L (136-145); Total Bilirubin 0.6 mg/dL (0.15-1.2); Total Protein 6.3 g/dL (6.6-8.7)
[2024-09-12 10:58] LABS: Troponin(5th) Baseline 116 ng/L (0-10)
--- NOTE | 2024-09-12 11:11 | ECG_ITS ---
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 Measurements Intervals [place] Rate: 90 P: 43 UT: 153 QRS: 60 QRSD: 97 T: 48 QT: 372 QTc: 456 Interpretive Statements SINUS RHYTHM NONSPECIFIC T-WAVE ABNORMALITY Compared to ECG 09/12/2024 09:00:35 Possible ischemia no longer present T-wave abnormality still present Electronically Signed On 09-14-2024 19:38:24 WELL SITE DRILLING ENGINEER by Jaiden Newell M.D. [email or web address]
[2024-09-12 12:38] LABS: Troponin 5 2HR Delta 6.3 ABS# (0-10)
[2024-09-12 12:42] LABS: Troponin 5 2HR 122.3 ng/L (0-10)
--- NOTE | 2024-09-12 15:04 | P.CONIM_ITS ---
<Statement entered by Jaiden Newell M.D - 09/13/24 21:56> Patient was evaluated and cared for in conjunction with an advanced practice practitioner. I personally examined the patient and reviewed the chart and all pertinent data including imaging, telemetry, and laboratory results. I discussed the patient in detail with the advanced practice practitioner. Please see their note for complete progress note, results and agreed upon plan of care for the patient. GENERAL: Patient is alert and oriented HEART: Regular S1 and S2 LUNGS: Clear to auscultation bilaterally EXTREMITIES: Lower extremities with no edema Chest pain Patient has multiple prior stents. Troponins are elevated with minimal uptrend. At this time continue medical therapy. Heparin gtt, dual antiplatelet therapy and nitro. Keep trending tropinins. Obtain echocardiogram. NPO past midnight, depending on patient's clinical progress, echo and troponins, we will decide medical therapy vs coronary angigogram Thank you for involving us with care of this patient. We will continue to follow. Please call with questions Providers/Reason For Consult 2 Consulting Physician/Specialty*: Dr Newell, cardiology Reason for Consult*: chest pain, troponin elevation Requesting Physician: Dr Shamra Primary Care Provider: Niko Jerez MD History of Present Illness History of Present Illness Watson Bridges is a 63 year old female with past medical history of CAD (PCI to the mid RCA for severe in-stent restenosis, balloon angioplasty of the distal left circumflex for severe in-stent restenosis on 05/02/2024), hyperlipidemia, CKD, type 2 diabetes, hypertension who resides in a [facility]. She presented to the emergency room this morning with chest pain, nausea and vomiting. She reports chest pain began 3 weeks ago, it is substernal and radiates to the left arm and scapula. She has had nausea and vomiting for the last 4 days, also has some abdominal pain she thought that the vomiting was related to the flu and did not seek care. Troponin series: 116-> 122. EKG shows sinus rhythm, nonspecific T wave abnormalities. Echocardiogram from April shows LVEF 41% mildly dilated LV cavity, no significant valvular abnormalities. Chest pain is present currently with the same substernal and left arm/scapula radiation, blood pressure is also elevated in the 180s systolic. She appears somewhat volume overloaded as well. Sahu now placed. She has a baseline creatinine of 1.4-1.5, today it is 1.5. She states I feel I am going to . Review of Systems 2 Const: Denies: fever(s), chills, change in weight, fatigue or diaphoresis Eyes: Denies: change in vision ENMT: Denies: epistaxis Card: Reports: chest pain, edema, dyspnea on exertion and orthopnea; Denies: palpitations, irregular heart rhythm, syncope, pre-syncope or leg pain with exertion Resp: Reports: dyspnea; Denies: productive cough or wheezing GI: Reports: abdominal pain, nausea and vomiting; Denies: hematemesis, hematochezia or melena : Denies: hematuria Musc: Denies: extremity swelling [place]/Lymph: Denies: easy bruising or easy bleeding Medications/Allergies Home Medications ?Medication ?Instructions ?Recorded ?Confirmed ?Last Taken ?Type tamsulosin 0.4 mg capsule 0.4 mg PO BEDTIME@01/06/ 3 09/12/24 09/11/24 History cholecalciferol (vitamin D3) 1,250 50,000 unit PO Q7D 01/18/23 09/12/24 07/20/24 History mcg (50,000 unit) capsule nitroglycerin 0.4 mg sublingual 0.4 mg sublingual Q5M PRN Chest 01/18/23 09/12/24 Unknown History tablet (Nitrostat) Pain potassium chloride 10 mEq 10 meq PO DAILY@01/18/23 09/12/24 09/12/24 History tablet,extended release ropinirole 0.5 mg tablet 0.5 mg PO BEDTIME@22 #30 tab s 01/24/23 09/12/24 09/11/24 Rx levothyroxine 25 mcg capsule 50 mcg PO QAM 05/08/2309/12/24 History hydrocodone 10 mg-acetaminophen 1 tab PO Q6H PRN Pain, Moderate 09/07/23 09/12/24 09/12/24 History 325 mg tablet pantoprazole 40 mg tablet,delayed 40 mg PO QAM 4 09/12/24 09/12/24 History release trazodone 50 mg tablet 50 mg PO BEDTIME 09/07/2309/11/24 History bupropion HCl 200 mg tablet,12 hr 200 mg PO BID 09/12/24 09/12/24 History sustained-release insulin lispro 100 unit/mL 29 sliding scale dose SUBCU T TID 09/14/23 09/12/24 09/12/24 History subcutaneous pen (Humalog KwikPen (U-100) Insulin) acetaminophen 650 mg 1,300 mg PO Q8H PRN Pain 01/3009/12/24 07/10/24 History tablet,extended release aspirin 81 mg tablet,delayed 81 mg PO DAILY@07 #60 tab s 11/23/23 09/12/24 09/12/24 Rx release ticagrelor 90 mg tablet (Brilinta) 90 mg PO BID@, #120 tabs 11/23/23 09/12/24 09/11/24 Rx ranolazine 500 mg tablet,extended 500 mg PO BID #60 ta bs 12/22/23 09/12/24 09/12/24 Rx release,12 hr insulin glargine 100 unit/mL (3 30 unit SUBCUT QAM 09/12/24 09/12/24 History mL) subcutaneous pen (Lantus Solostar U-100 Insulin) isosorbide mononitrate 60 mg 60 mg PO DAILY 02/28/24 0 09/12/24 09/12/24 History tablet,extended release 24 hr bumetanide 2 mg tablet 2 mg PO DAILY #60 tabs 03/2409/12/24 09/12/24 Rx metoprolol tartrate 50 mg tablet 50 mg PO BID #60 tabs 03/24/24 09/12/24 09/12/24 Rx atorvastatin 80 mg tablet 80 mg PO BEDTIME 07/22/2409/11/24 History ondansetron HCl 4 mg tablet 4 mg PO Q4H PRN Nausea And Vomiting 07/22/24 09/12/24 07/21/24 History albuterol sulfate 2.5 mg/3 mL 2.5 mg inhalation Q4H SD N 08/14/24 09/12/24 Unknown History (0.083 %) solution for nebulization Shortness Of Breat h Or Wheezing calcium carbonate 1,000 mg PO DAILY 09/12/24 0 09/12/24 Unknown History docusate sodium 100 mg capsule 100 mg PO BID 09/12/24 09/12/24 09/12/24 History phenazopyridine 200 mg tablet 200 mg PO Q8H PRN Urinar y Retention 09/12/24 09/12/24 Unknown History Allergies Allergy/AdvReac Type Severity Reaction Status Date / Time hyoscyamine Allergy Severe ADR-Itching Verified 08/14/24 15:08 cefdinir Allergy Unknown Verified 08/14/24 15:08 ciprofloxacin (From Cipro) Allergy hives Verified 08/14/24 15:08 citalopram Allergy effects Verified 08/14/24 15:08 speach and memory clopidogrel (From Plavix) Allergy unk Verified 08/14/24 15:08 coconut Allergy Unknown Verified 08/14/24 15:08 ibuprofen Allergy RASH/ Verified 08/14/24 15:08 SWELLING famotidine AdvReac Mild itching Verified 08/14/24 15:08 esomeprazole (From Nexium) AdvReac Unknown Verified 08/14/24 15:08 PFSH Acute 2 PFSH: Medical History (Updated 09/12/24 @ 15:34 by RAPHAEL uBrns) Elevated troponin CAD (coronary artery disease) Non-ST elevation [place] (NSTEMI) DM type 2 (diabetes mellitus, type 2) Unstable angina pectoris Acute kidney injury CHF (congestive heart failure) Chest pain Status post left heart catheterization (LHC) Groin hematoma Left ACL tear Fracture of fifth toe, left, closed Derangement of lateral meniscus of right knee Derangement of medial meniscus of right knee Chronic kidney disease (CKD) Lumbar stenosis with neurogenic claudication Inability to walk Renal failure Chronic cystitis with hematuria Inability to urinate Atherosclerotic heart disease of [place] coronary artery with other forms of angina pectoris Lower extremity weakness Depression with anxiety Coronary artery disease due to type 2 diabetes mellitus Morbid obesity Generalized muscle weakness Type 2 diabetes mellitus with diabetic polyneuropathy Diabetes mellitus Small bowel strangulation Dyslipidemia Chronic cystitis Gross hematuria Osteoporosis Morbid obesity Constipation Migraine headache Bilateral lower extremity edema RLS (restless legs syndrome) GERD (gastroesophageal reflux disease) BETH (obstructive sleep apnea) CVA (cerebral vascular accident) HTN (hypertension) Pulmonary embolism, bilateral Opioid contract exists Long-term use of high-risk medication Chronic low back pain Surgical History Status post coronary artery stent placement Status post lumbar laminectomy H/O heart artery stent S/P hysterectomy S/P tonsillectomy and adenoidectomy S/P appendectomy S/P cholecystectomy Hx of total knee replacement History of partial surgical removal of colon Family History Grandfather Cancer Family/Other Myocardial infarct MOTHER, FATHER, BROTHER, SISTER Hypertension Diabetes Mother , at age 66 CAD (coronary artery disease) Father , at age 74 CAD (coronary artery disease) Sister CAD (coronary artery disease) Brother CAD (coronary artery disease) Other Stroke Denies family history of Anesthesia complication Bleeding disorder Social History Smoking and tobacco/nicotine status: never used tobacco/nicotine Alcohol intake: never Substance/Drug Use: current Substance/Drug use frequency: other Other substance/drug use details: smokes medical marijauna occasionally at night to help her sleep Lives independently: Yes Marital status: Current occupational status: disabled Current gender identity: Female Special vik needs: No Vitals/I&O/Wt Last Vital Signs Temp 98.2 F 09/12/24 09:08 Pulse 94 09/12/24 14:04 Resp 22 H 09/12/24 09:08 BP 153/86 09/12/24 14:04 Pulse Ox 96 09/12/24 14:04 O2 Del Method Nasal Cannula 09/12/24 14:04 O2 Flow Rate 3 09/12/24 14:04 Weight last 48 hrs Weight 290 lb Physical Exam 2 Const: COMMON NORMALS: patient oriented x3 GENERAL APPEARANCE: cooperative, in distress and anxious NUTRITIONAL APPEARANCE: obese morbidly obese O RIENTATION/CONSCIOUSNESS: Yes awake, Yes oriented to person, Yes oriented to place and Yes oriented to time Chest: COMMONS NORMALS: normal inspection of the chest and normal palpation of entire chest wall CHEST: Yes Symmetrical chest wall rise Resp: COMMON NORMALS: No retractions and No use of accessory muscles EFFORT & INSPECTION: Yes symmetric chest movement, Yes tachypneic and Yes labored (partially due to anxiety) AUSCULTATION: diminished lung sounds bilateral in the lower lung [place] Cardio: COMMON NORMALS: regular rate, regular rhythm, S1 normal heart sound present, S2 normal heart sound present, No gallops present (Cardio), No clicks present (Cardio), No murmurs present (Cardio) and No rub (Cardio) RATE: r egular rate RHYTHM: regular rhythm HEART SOUNDS: S1 normal heart sound present and S2 normal heart sound present PERIPHERAL PULSES: radial pulses present Extremity: GENERAL: Yes edema (1+ pitting edema bilat LE ) Neuro: COMMON NORMALS: patient oriented x3 and moves all extremities S ENSORIUM/ORIENTATION: Yes oriented to person, Yes oriented to place and Yes oriented to time Data 09/12/24 10:13 09/12/24 10:13 A&P Assessment and plan (1) CHF (congestive heart failure): Qualifiers: Heart failure chronicity: acute on chronic Heart failure type: systolic Qualified Code(s): I50.23 - Acute on chronic systolic (congestive) heart failure (2) Chest pain: Qualifiers: Chest pain type: unspecified Qualified Code(s): R07.9 - Chest pain, unspecified (3) CAD (coronary artery disease): Qualifiers: Coronary Disease-Associated Artery/Lesion type: [place] artery [place] vs. transplanted heart: [place] heart Associated angina: angina presence unspecified Qualified Code(s): I25.10 - Atherosclerotic heart disease of [place] coronary artery without angina pectoris (4) Elevated troponin: Plan Will continue to trend troponin series. Start nitroglycerin infusion, titrate for chest pain. N.p.o. after midnight. Plan for limited echocardiogram to reevaluate LVEF. Depending on third troponin and pattern of chest pain once nitroglycerin is initiated and blood pressure normalized, further plan will be devised. If chest pain improves, plan for stress test or coronary angiogram tomorrow. She does not have any family here, she requested that I call Blank-she did not answer and no voicemail set up. PDMP PDMP Reviewed: Not Reviewed Coding Level of Care Code Acute Code for Chg Fwd Diagnoses Acute on chronic systolic congestive heart failure I50.23 Heart failure chronicity: acute on chronic Heart failure type: systolic Chest pain, unspecified type R07.9 Chest pain type: unspecified Coronary artery disease involving [place] coronary artery of [place] heart, angina presence unspecified I25.10 Coronary Disease-Associated Artery/Lesion type: [place] artery [place] vs. transplanted heart: [place] heart Associated angina: angina presence unspecified Elevated troponin R77.8
--- NOTE | 2024-09-12 15:11 | ECG_ITS ---
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 Measurements Intervals [place] Rate: 95 P: 5 DE: 149 QRS: -5 QRSD: 96 T: 53 QT: 352 QTc: 444 Interpretive Statements SINUS RHYTHM NONSPECIFIC ST & T-WAVE ABNORMALITY Compared to ECG 09/12/2024 10:53:55 No significant changes Electronically Signed On 09-14-2024 19:37:07 [employer] TECHNOLOGY MANAGER by Jaiden Newell M.D. [email or web address] [id number]
[2024-09-12] MEDS: nitroglycerin drip 50 MG/250 ML PREMIX IV (15:20)
--- NOTE | 2024-09-12 15:32 | PM.HP ---
Providers/Chief Complaint Primary Care Provider: Niko Jerez MD Chief Complaint: chest pain, n/v History of Present Illness Watson Bridges is a 63 year old female with past medical medical history of CAD, type 2 diabetes mellitus, hypertension, correction resident, wheelchair-bound, recent PCI for in-stent restenosis to mid RCA, balloon angioplasty to distal LCx for in-stent restenosis in April 2024, congestive heart failure with EF of 41% presents to the ER today from [place] with complaints of ongoing chest pain with difficulty in breathing getting worse over last 2 to 3 days along with nausea and diaphoresis. Patient chronically is on 2 L of oxygen while sleeping. Currently requiring total of oxygen continuously. States she feels as though she is going to . Feels as if she has an elephant sitting on her chest. Review of Systems General: Reports: 10 or more systems reviewed and unremarkable except in HPI and below Const: Denies: fever(s), chills, body aches, change in appetite, change in weight, malaise, night sweats, diaphoresis, change in sleep pattern, daytime sleepiness or snoring Eyes: Denies: change in vision, blurry vision, photophobia, eye discomfort or eye discharge ENMT: Denies: throat pain, enlarged tonsils, hoarseness, mouth pain, oral sores, dry mouth, tinnitus, nasal congestion or post nasal drip Card: Denies: chest pain, palpitations, irregular heart rhythm, edema, swelling of feet/ankles, lightheadedness, syncope, pre-syncope, dyspnea on exertion, orthopnea, leg pain with exertion or acrocyanosis Resp: Denies: dyspnea, productive cough, non-productive cough, wheezing, stridor, pain on inspiration, change in phlegm color, hemoptysis or chest congestion GI: Denies: abdominal pain, nausea, vomiting, hematemesis, coffee ground emesis, dysphagia, heartburn, diarrhea, constipation, bloating, GI cramping, change in bowel habits, pain on defecation, hematochezia or melena : Denies: flank pain, dysuria, urinary frequency, urinary urgency, urinary hesitancy, nocturia or hematuria Musc: Denies: neck pain, back pain, extremity pain, joint pain, joint swelling, joint redness, joint stiffness or limited range of motion Neuro: Denies: headache(s), numbness in extremities, weakness in extremities, sensory changes, lack of coordination, difficulty walking, frequent falls, dizziness, vertigo, confusion, Slurred speech present, difficulty communicating thoughts or seizure-like activity Psych: Denies: anxiety, depression, mood swings, panic attacks, hopelessness or irritability Endo: Denies: polyuria, polydipsia, tired all the time, cold intolerance, excessive sweating, flushing or heat intolerance Soham/Lymph: Denies: easy bruising or easy bleeding All/Imm: Denies: tongue swelling, facial swelling or acute wheezing Medications/Allergies Home Medications ?Medication ?Instructions ?Recorded ?Confirmed ?Last Taken ?Type tamsulosin 0.4 mg capsule 0.4 mg PO BEDTIME@22 01/06/23 09/12/24 09/11/24 History cholecalciferol (vitamin D3) 1,250 50,000 unit PO Q7D 01/18/23 09/12/24 07/20/24 History mcg (50,000 unit) capsule nitroglycerin 0.4 mg sublingual 0.4 mg sublingual Q5M PRN Chest 01/18/23 09/12/24 Unknown History tablet (Nitrostat) Pain potassium chloride 10 mEq 10 meq PO DAILY@07 01/18/23 09/12/24 09/12/24 History tablet,extended release ropinirole 0.5 mg tablet 0.5 mg PO BEDTIME@22 #30 tabs 01/24/23 09/12/24 09/11/24 Rx levothyroxine 25 mcg capsule 50 mcg PO QAM 05/08/23 09/12/24 09/12/24 History hydrocodone 10 mg-acetaminophen 1 tab PO Q6H PRN Pain, Moderate 09/07/23 09/12/24 09/12/24 History 325 mg tablet pantoprazole 40 mg tablet,delayed 40 mg PO QAM 09/07/23 09/12/24 09/12/24 History release trazodone 50 mg tablet 50 mg PO BEDTIME 09/07/23 09/12/24 09/11/24 History bupropion HCl 200 mg tablet,12 hr 200 mg PO BID 09/14/23 09/12/24 09/12/24 History sustained-release insulin lispro 100 unit/mL 29 sliding scale dose SUBCUT TID 09/14/23 09/12/24 09/12/24 History subcutaneous pen (Humalog KwikPen (U-100) Insulin) acetaminophen 650 mg 1,300 mg PO Q8H PRN Pain 11/14/23 09/12/24 07/10/24 History tablet,extended release aspirin 81 mg tablet,delayed 81 mg PO DAILY@07 #60 tabs 11/23/23 09/12/24 09/12/24 Rx release ticagrelor 90 mg tablet (Brilinta) 90 mg PO BID@07,22 #120 tabs 11/23/23 09/12/24 09/11/24 Rx ranolazine 500 mg tablet,extended 500 mg PO BID #60 tabs 12/22/23 09/12/24 09/12/24 Rx release,12 hr insulin glargine 100 unit/mL (3 30 unit SUBCUT QAM 02/28/24 09/12/24 09/12/24 History mL) subcutaneous pen (Lantus Solostar U-100 Insulin) isosorbide mononitrate 60 mg 60 mg PO DAILY 02/28/24 09/12/24 09/12/24 History tablet,extended release 24 hr bumetanide 2 mg tablet 2 mg PO DAILY #60 tabs 03/24/24 09/12/24 09/12/24 Rx metoprolol tartrate 50 mg tablet 50 mg PO BID #60 tabs 03/24/24 09/12/24 09/12/24 Rx atorvastatin 80 mg tablet 80 mg PO BEDTIME 07/22/24 09/12/24 09/11/24 History ondansetron HCl 4 mg tablet 4 mg PO Q4H PRN Nausea And Vomiting 07/22/24 09/12/24 07/21/24 History albuterol sulfate 2.5 mg/3 mL 2.5 mg inhalation Q4H PRN 08/14/24 09/12/24 Unknown History (0.083 %) solution for nebulization Shortness Of Breath Or Wheezing calcium carbonate 1,000 mg PO DAILY 09/12/24 09/12/24 Unknown History docusate sodium 100 mg capsule 100 mg PO BID 09/12/24 09/12/24 09/12/24 History phenazopyridine 200 mg tablet 200 mg PO Q8H PRN Urinary Retention 09/12/24 09/12/24 Unknown History Allergies Allergy/AdvReac Type Severity Reaction Status Date / Time hyoscyamine Allergy Severe ADR-Itching Verified 08/14/24 15:08 cefdinir Allergy Unknown Verified 08/14/24 15:08 ciprofloxacin (From Cipro) Allergy hives Verified 08/14/24 15:08 citalopram Allergy effects Verified 08/14/24 15:08 speach and memory clopidogrel (From Plavix) Allergy unk Verified 08/14/24 15:08 coconut Allergy Unknown Verified 08/14/24 15:08 ibuprofen Allergy RASH/ Verified 08/14/24 15:08 SWELLING famotidine AdvReac Mild itching Verified 08/14/24 15:08 esomeprazole (From Nexium) AdvReac Unknown Verified 08/14/24 15:08 PFSH Acute PFSH: Medical History (Updated 09/12/24 @ 17:45 by Clovis Szymanski MD) Otitis media, unspecified, bilateral Elevated troponin CAD (coronary artery disease) Non-ST elevation SC (NSTEMI) DM type 2 (diabetes mellitus, type 2) Unstable angina pectoris Acute kidney injury CHF (congestive heart failure) Chest pain Status post left heart catheterization (LHC) Groin hematoma Left ACL tear Fracture of fifth toe, left, closed Derangement of lateral meniscus of right knee Derangement of medial meniscus of right knee Chronic kidney disease (CKD) Lumbar stenosis with neurogenic claudication Inability to walk Renal failure Chronic cystitis with hematuria Inability to urinate Atherosclerotic heart disease of [place] coronary artery with other forms of angina pectoris Lower extremity weakness Depression with anxiety Coronary artery disease due to type 2 diabetes mellitus Morbid obesity Generalized muscle weakness Type 2 diabetes mellitus with diabetic polyneuropathy Diabetes mellitus Small bowel strangulation Dyslipidemia Chronic cystitis Gross hematuria Osteoporosis Morbid obesity Constipation Migraine headache Bilateral lower extremity edema RLS (restless legs syndrome) GERD (gastroesophageal reflux disease) BETH (obstructive sleep apnea) CVA (cerebral vascular accident) HTN (hypertension) Pulmonary embolism, bilateral Opioid contract exists Long-term use of high-risk medication Chronic low back pain Surgical History Status post coronary artery stent placement Status post lumbar laminectomy H/O heart artery stent S/P hysterectomy S/P tonsillectomy and adenoidectomy S/P appendectomy S/P cholecystectomy Hx of total knee replacement History of partial surgical removal of colon Family History Grandfather Cancer Family/Other Myocardial infarct MOTHER, FATHER, BROTHER, SISTER Hypertension Diabetes Mother , at age 66 CAD (coronary artery disease) Father , at age 74 CAD (coronary artery disease) Sister CAD (coronary artery disease) Brother CAD (coronary artery disease) Other Stroke Denies family history of Anesthesia complication Bleeding disorder Social History Smoking and tobacco/nicotine status: never used tobacco/nicotine Alcohol intake: never Substance/Drug Use: current Substance/Drug use frequency: other Other substance/drug use details: smokes medical marijauna occasionally at night to help her sleep Lives independently: Yes Marital status: Current occupational status: disabled Current gender identity: Female Special vik needs: No Vitals/I&O/Wt Last Vital Signs Temp 98.2 F 09/12/24 09:08 Pulse 97 09/12/24 15:21 Resp 22 H 09/12/24 09:08 BP 200/91 09/12/24 15:21 Pulse Ox 94 09/12/24 15:21 O2 Del Method Nasal Cannula 09/12/24 15:21 O2 Flow Rate 2 09/12/24 15:21 Weight last 48 hrs Weight 131.542 kg Physical Exam Narrative: General: No acute distress, AO x3, chronically sick appearing, morbidly obese on 2 L of nasal cannula HEENT: PERRLA, pupils bilaterally equal and reactive Chest: Bilateral bronchial breath sounds over lung [place], decreased air entry bilaterally in lower zone, fine crackles present up to mid lungs CVS: S1-S2 regular, no murmurs, no tachycardia, no gallops, no rubs Abdomen: Soft, nontender, no organomegaly, bowel sounds present Neuro: No focal deficits, no facial deformity, AO x3, power 5/5 in all limbs Extremity: 2+ pitting edema up to mid thigh bilaterally Data 09/12/24 10:13 09/12/24 10:13 A&P Assessment and plan (1) Non-ST elevation SC (NSTEMI): History of CAD with recent in-stent restenosis to mid RCA and LCx. Coming in with chest pain and difficulty in breathing. Baseline troponin elevated. Cardiology consulted. Possible plan for cardiac angiogram versus stress test. Limited echocardiogram. Start on heparin drip. Continue with home dose of aspirin, Brilinta, statin. Check A1c, lipid panel. Continue with beta-marjorie. (2) Hypertensive urgency: Goal blood pressure less than 140/90 mmHg with mean over 65. Blood pressure elevated 200. Start on nitro drip. Also will help with chest pain in setting of non-ST ovation SC. Switch from metoprolol to Coreg 6.25 mg twice daily. Uptitrate as per goal blood pressure. (3) CHF (congestive heart failure): Acute on chronic systolic heart failure. Last echocardiogram from April 2024 shows an EF of 40% with grade 1 diastolic dysfunction, mild LVH, moderate MR. Echocardiogram as above. Fluid restriction to less than 1500 cc. 60 mg of IV Lasix one-time. Strict input output charting, daily weights. Qualifiers: Heart failure chronicity: acute on chronic Heart failure type: systolic Qualified Code(s): I50.23 - Acute on chronic systolic (congestive) heart failure (4) Leukocytosis: Recent admission for bacterial pneumonia in July. Check urinalysis. X-ray negative for consolidation for now. Appreciate urine culture from past. Does have history of Enterococcus VRE UTI in the past. Most recently with pansensitive E. coli. Check blood culture, urinalysis, urine culture, procalcitonin. Start on IV meropenem for now. (5) CKD (chronic kidney disease): Baseline creatinine of 1.3-1.6. As high as 1.9 in last 1 year. Currently 1.5. Strict input output charting, daily weights. Urinalysis. Qualifiers: Chronic kidney disease stage: stage 3 (moderate) (6) CAD (coronary artery disease): Qualifiers: Coronary Disease-Associated Artery/Lesion type: [place] artery [place] vs. transplanted heart: [place] heart Associated angina: angina presence unspecified Qualified Code(s): I25.10 - Atherosclerotic heart disease of [place] coronary artery without angina pectoris (7) DM type 2 (diabetes mellitus, type 2): Continue with home dose of Lantus. Sliding scale at high dose protocol. Check A1c. Qualifiers: Diabetes mellitus termite technician insulin use: without mcc use Diabetes mellitus complication status: without complication Qualified Code(s): E11.9 - Type 2 diabetes mellitus without complications (8) Morbid obesity: (9) Goals of care, counseling/discussion: (10) Chest pain: Qualifiers: Chest pain type: unspecified Qualified Code(s): R07.9 - Chest pain, unspecified Plan CODE STATUS: Discussed in detail with the patient. Sister and nephew will be the DPOA. Patient does not want any resuscitation. DNR/DNI. Carb consistent cardiac diet. Possible n.p.o. after midnight. Heparin drip will be sufficient for DVT prophylaxis Protonix for PUD prophylaxis. PDMP PDMP Reviewed: Not Reviewed Attestations Medical Necessity Statement*: Admission for more than 2 midnights for management of hypertensive urgency, non-ST elevation SC in a patient who is bedbound, recent history of in-stent restenosis Diagnoses Non-ST elevation SC (NSTEMI) I21.4 Hypertensive urgency I16.0 Acute on chronic systolic congestive heart failure I50.23 Heart failure chronicity: acute on chronic Heart failure type: systolic Leukocytosis D72.829 CKD (chronic kidney disease) N18.9 Chronic kidney disease stage: stage 3 (moderate) Coronary artery disease involving [place] coronary artery of [place] heart, angina presence unspecified I25.10 Coronary Disease-Associated Artery/Lesion type: [place] artery [place] vs. transplanted heart: [place] heart Associated angina: angina presence unspecified Type 2 diabetes mellitus without complication, without long-term current use of insulin E11.9 Diabetes mellitus termite technician insulin use: without termite technician use Diabetes mellitus complication status: without complication Morbid obesity E66.01 Goals of care, counseling/discussion Z71.89 Chest pain, unspecified type R07.9 Chest pain type: unspecified
--- NOTE | 2024-09-12 15:34 | PC.NURSE ---
verified IV compatibility for Heparin and Nitro through [employer] and Pharmacist, Marino.
[2024-09-12 16:08] LABS: Procalcitonin 0.12 ng/mL (0-0.5)
[2024-09-12] MEDS: carvedilol 6.25 mg Tablet PO (16:16)
[2024-09-12] MEDS: heparin 5,000 unit/mL INJ 1 mL IVP (16:16)
[2024-09-12] MEDS: heparin drip 25,000 UNIT/500 ML PREMIX 34 UNIT IV (16:17)
[2024-09-12 16:19] LABS: D Dimer 2.29 ug/mLFEU (0-0.59)
[2024-09-12 17:35] LABS: Lactic Sepsis W/Reflex 1.5 mmol/L (0.5-2.2)
--- NOTE | 2024-09-12 17:37 | USCV_ITS ---
Watson Bridges Age: 63 Gender: F : 1960 Exam Date: 09/12/2024 18:01 Ordering Phys: Farrah Smith Technologist: CT Exam Location[place] [facility] [place] Indication: BP: 217 / 109 HR: Rhythm: Sinus Technical Quality: Adequate MEASUREMENTS (Male / Female) Normal Values 2D ECHO LVOT Diameter 2.0 cm LV Ejection Fraction MOD 4C 28.8 % LV Ejection Fraction MOD 2C 25.8 % LV Ejection Fraction 2C AL 25.9 % LA Diameter 4.9 cm RA Systolic Volume 4C AL 82.2 ml RA Systolic Volume 4C MOD 81.6 ml LA Sys Volume AL 87.7 cm cubed LA Sys Volume Index AL 36.5 cm cubed/m squared Aorta at Sinotubular Diameter 2.1 cm M-MODE LA Ao Ratio MM 1.9 AV Cusp Separation MM 2.1 cm FINDINGS Left Ventricle Right Ventricle Right Atrium Left Atrium Mitral Valve Aortic Valve Tricuspid Valve Pulmonic Valve Pericardium Aorta IVC CONCLUSIONS Limited quality echocardiogram because of poor ultrasonic windows. Grossly LV systolic function appears moderately reduced. Recommend limited echo with contrast to better assess LV systolic function and regional wall motion abnormalities. Jaiden Newell MD (Electronically Signed) Final Date: 13 September 2024 14:28 S
[2024-09-12] MEDS: FUROsemide 10 mg/mL SDV 10mL 60 MG IVP (18:45)
[2024-09-12 18:46] LABS: Iron 23 ug/dL (37-145); Thyroid Stimulating Hormone 3.99 uIU/mL (0.27-4.20)
--- NOTE | 2024-09-12 19:01 | ECG_ITS ---
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 Measurements Intervals [place] Rate: 96 P: 7 SC: 142 QRS: -8 QRSD: 101 T: -30 QT: 331 QTc: 418 Interpretive Statements SINUS RHYTHM NONSPECIFIC ST & T-WAVE ABNORMALITY Compared to ECG 09/12/2024 15:15:32 No significant changes Electronically Signed On 09-14-2024 19:36:12 ANESTHESIOLOGY FACULTY by Jaiden Newell M.D. [id number]
[2024-09-12] MEDS: ondansetron 2 mg/ML SDV 2 mL 4 MG IVP ×2 (19:08→21:20)
[2024-09-12 19:15] LABS: Basophils % 0.3 %; Eosinophils % 0.3 %; Hematocrit 31.2 % (36-47); Lymphocytes # 1.5 10^3/uL (0.8-4.8); Lymphocytes % 12.2 %; Mean Corpuscular HGB Conc 31.7 g/dL (30-55); Mean Corpuscular Hemoglobin 27.3 pg (27-33); Mean Corpuscular Volume 86.2 fl (85-98); Mean Platelet Volume 9.5 fL (7.4-10.4); Monocytes # 0.9 10^3/uL (0.2-0.9); Monocytes % 6.9 %; Neutrophils # 10.07 10^3/uL (1.8-7.7); Nucleated Red Blood Cells % 0 %; Platelet Count 302 10^3/cmm (157-399); Red Blood Count 3.62 10^6/uL (3.85-5.65); Red Cell Distribution Width 15.7 % (12.1-15.1); White Blood Count 12.59 10^3/uL (3.29-11.43)
[2024-09-12 19:29] LABS: Lactate (Lactic Acid level) 1.7 mmol/L (0.5-2.2)
--- NOTE | 2024-09-12 19:30 | PC.NURSE ---
PER VERBAL ORDER FROM DR. LOMBARDO, ORDER AND ADMIN MORPHINE 2MG IVP ONCE AND CT WO CONTRAST PELVIC AND ABDOMEN
[2024-09-12] MEDS: morphine 4 mg/mL SDV 1 mL 2 MG IVP (19:35)
--- NOTE | 2024-09-12 19:41 | CTR_ITS ---
PROCEDURE INFORMATION: Exam: CT Chest Without Contrast; Diagnostic Exam date and time: 09/12/2024 7:44 PM Age: 63 years old Clinical indication: Nausea and vomiting; Abdominal pain; Generalized; Shortness of breath; Other: N/a; Prior surgery; Surgery date: 6+ months; Surgery type: Coronary stents. Gb. Appy. Hysterectomy. Lumbar laminectomy. Bowel resection. SOB and hypoxia with diffuse abd pain and n/v. History of chf and ckd. ; Additional info: Hypoxia/abd pain TECHNIQUE: Imaging protocol: Diagnostic computed tomography of the chest without contrast. Radiation optimization: All CT scans at this facility use at least one of these dose optimization techniques: automated exposure control; mA and/or kV adjustment per patient size (includes targeted exams where dose is matched to clinical indication); or iterative reconstruction. COMPARISON: CT chest wo con [id number] 07/23/2024 2:18 PM RADIATION DOSE METRICS: Total DLP (mGy-cm): 1481.18 FINDINGS: Lungs: Stable calcified granulomata in the left lung. Areas of anterior basilar scarring and chronic consolidation are stable. Mild left posterior lower lobe atelectasis. New small focal consolidation in the anterior left lower lobe. Pleural spaces: No pleural effusion or pneumothorax. Heart: Borderline cardiomegaly. No pericardial effusion or pericardial thickening. Coronary arteries: Severe coronary artery calcification. Lymph nodes: No enlarged lymph nodes are identified. Multiple calcified left hilar lymph nodes. Vasculature: Atherosclerotic calcifications of the aorta are present. No aneurysm is identified. Bones/joints: No acute osseous abnormalities are seen. Soft tissues: The soft tissues are within normal limits. PROCEDURE INFORMATION: Exam: CT Abdomen And Pelvis Without Contrast Exam date and time: 09/12/2024 7:44 PM Age: 63 years old Clinical indication: Nausea and vomiting; Abdominal pain; Generalized; Shortness of breath; Other: N/a; Prior surgery; Surgery date: 6+ months; Surgery type: Coronary stents. Gb. Appy. Hysterectomy. Lumbar laminectomy. Bowel resection. SOB and hypoxia with diffuse abd pain and n/v. History of chf and ckd. ; Additional info: Hypoxia/abd pain TECHNIQUE: Imaging protocol: Computed tomography of the abdomen and pelvis without contrast. Radiation optimization: All CT scans at this facility use at least one of these dose optimization techniques: automated exposure control; mA and/or kV adjustment per patient size (includes targeted exams where dose is matched to clinical indication); or iterative reconstruction. COMPARISON: CT abdomen pelvis wo con [id number] 11/21/2023 2:03 PM RADIATION DOSE METRICS: Total DLP (mGy-cm): 1481.18 FINDINGS: Liver: The liver is normal. No hepatic masses are identified. Gallbladder and biliary ducts: The gallbladder is surgically absent. There is no ductal dilatation. Pancreas: The pancreas is atrophic without obvious abnormality. Spleen: Calcified splenic granulomata are noted. The spleen is otherwise normal. Adrenal glands: The adrenal glands are normal. Kidneys and ureters: No renal calcifications are identified. There is no hydronephrosis. Stomach and bowel: Multiple dilated segments of proximal small bowel with apparent transition point in the right mid abdomen (images 50-54 of series 11, image 55 of series 13, and images 47-49 of series 12). The distal small bowel is decompressed. Postoperative changes of the small bowel. No bowel wall thickening. [id number]-[id number] retained colonic stool. Appendix: A normal appendix is not identified. There is no secondary evidence of acute appendicitis. Intraperitoneal space: No inflammatory changes are identified. There is no free fluid or fluid collection seen. There is no pneumoperitoneum. Vasculature: Atherosclerotic calcifications of the aorta are present. No aneurysm is identified. Lymph nodes: No enlarged lymph nodes are identified. Urinary bladder: The bladder is decompressed and contains a Sahu catheter. Reproductive: The uterus is absent. Bones/joints: No acute osseous abnormalities are seen. Soft tissues: Moderate ventral hernia containing multiple segments of dilated and nondilated small bowel. Mild diffuse subcutaneous edema. Stable fat density lesion in the subcutaneous fat of the right lateral abdominal wall likely lipoma. Other findings: Extensive small-vessel calcifications. CT/[place] [id number] IMPRESSION: 1. New small focal consolidation in the anterior left lower lobe. 2. Old granulomatous disease. IMPRESSION: 1. Findings consistent with small bowel obstruction with transition point in the right mid abdomen. 2. Other nonemergent findings above.
[2024-09-12 20:23] LABS: Estmated Average Glucose 171; Hemoglobin A1C 7.6 % (4.0-6.0)
[2024-09-12 20:34] LABS: Percent Saturation 8.8 % (20-50); Total Iron Binding Capacity 261 mcg/dl; Unsaturated Iron Binding 238 ug/dL (112-347)
[2024-09-12] MEDS: ipratropium 0.5 mg/2.5 mL Neb INHALATION (20:39)
[2024-09-12] MEDS: levalbuterol 0.63 mg/3 mL Neb INHALATION (20:39)
[2024-09-12 20:49] LABS: Glucose Point of Care 259 mg/dL (70-110)
--- NOTE | 2024-09-12 21:10 | W.PM.EVENTAC ---
Event Note Event Note: I was called by the ER nurse that patient is complaining abdominal pain, lactic acid BMP was pending, creatinine was high requested CT abdomen pelvis without contrast on stat basis It is showing focal consolidation anterior left lobe Small bowel obstruction with transition point right mid abdomen I have requested NG tube to low intermittent suction,: Patient is in ICU now: ICU nurse and updated
[2024-09-12] MEDS: meropenem 1,000 mg SDV 1000 MG IVP (21:40)
[2024-09-12] MEDS: insulin lispro 100 unit/1 mL SUBCUT (21:41)
--- NOTE | 2024-09-12 22:22 | XRR_ITS ---
PROCEDURE INFORMATION: Exam: XR Chest Exam date and time: 09/12/2024 10:32 PM Age: 63 years old Clinical indication: Device placement; Ng tube; Prior surgery; Surgery date: 6+ months; Surgery type: Gb; Check S/P ng placement; Additional info: Ng tube placement TECHNIQUE: Imaging protocol: Radiologic exam of the chest. Views: 1 view. COMPARISON: [place] [id number] 09/12/2024 7:44 PM FINDINGS: Tubes, catheters and devices: A nasogastric tube is in place with the distal tip overlying the stomach, in radiographically appropriate position. Lungs: Stable interstitial coarsening and patchy left basilar opacities. Pleural spaces: No pleural effusion or pneumothorax. Heart/Mediastinum: The cardiomediastinal silhouette is stable. Bones/joints: No acute osseous abnormalities are seen. XR/XR chest 1V portable [id number] IMPRESSION: Nasogastric tube in radiographically appropriate position.
[2024-09-12 22:41] LABS: Partial Thromboplastin Time 87.3 SECONDS (23.9-36.7)
[2024-09-12] MEDS: trazodone 50 mg Tablet PO (23:03)
[2024-09-12] MEDS: ticagrelor 90 mg Tablet PO (23:03)
[2024-09-12] MEDS: docusate sodium 100 mg Capsule PO (23:04)
[2024-09-12] MEDS: ranolazine (12HR) 500 mg Tablet PO (23:04)
[2024-09-12] MEDS: atorvastatin 40 mg Tablet 80 MG PO (23:04)
[2024-09-12] MEDS: tamsulosin 0.4 mg Capsule PO (23:04)
[2024-09-12] MEDS: hyDRALAzine 20 mg/mL INJ 1 mL 10 MG IVP (23:52)
[2024-09-13] VITALS (155 sets, daily range): BP systolic 92–201; BP diastolic 55–141; PULSE 85–114; RESP 13–35; TEMP 36.7–37.7; O2SAT 91–99
[2024-09-13 01:37] LABS: Bilirubin Urine Negative (Negative); Blood Urine 3+ (Negative); Glucose Urine UA Negative (Normal); Ketones Urine Negative (Negative); Leukocyte Esterase Urine 1+ (Negative); Nitrate Urine Negative (Negative); Protein Urine 2+ (Negative); Specific Gravity, Urine 1.014 (1.005-1.030); Urine Appearance Clear (CLEAR); Urine Color Yellow (Yellow); pH Urine 5.5 (5-7)
[2024-09-13 01:50] LABS: Add Urine Microscopic? YES; RBC Urine 40-50 /hpf (0-2); UA Manual Slide Review YES
[2024-09-13 01:51] LABS: Add Urine Culture? Yes; WBC Urine 15-25 /hpf (0-5)
[2024-09-13] MEDS: levalbuterol 0.63 mg/3 mL Neb INHALATION ×4 (03:19→19:37)
[2024-09-13] MEDS: hyDRALAzine 20 mg/mL INJ 1 mL 10 MG IVP (03:49)
[2024-09-13] MEDS: meropenem 1,000 mg SDV 1000 MG IVP ×3 (04:05→20:27)
[2024-09-13] MEDS: HYDROcodone-acetaminophen 10-325 mg Tablet 1 TAB PO (04:13)
[2024-09-13 04:36] LABS: Glucose Point of Care 159 mg/dL (70-110)
[2024-09-13 04:45] LABS: Basophils % 0.2 %; Eosinophils # 0.2 10^3/uL (0.0-0.8); Eosinophils % 2.2 %; Hematocrit 31.6 % (36-47); Lymphocytes # 1.6 10^3/uL (0.8-4.8); Lymphocytes % 18.4 %; Mean Corpuscular Hemoglobin 26.9 pg (27-33); Mean Corpuscular Volume 86.8 fl (85-98); Mean Platelet Volume 9.7 fL (7.4-10.4); Monocytes # 0.8 10^3/uL (0.2-0.9); Monocytes % 9.5 %; Neutrophils # 5.88 10^3/uL (1.8-7.7); Neutrophils % 69.6 %; Nucleated Red Blood Cells % 0 %; Platelet Count 305 10^3/cmm (157-399); Red Blood Count 3.64 10^6/uL (3.85-5.65); Red Cell Distribution Width 15.9 % (12.1-15.1); White Blood Count 8.46 10^3/uL (3.29-11.43)
[2024-09-13 05:00] LABS: Alanine Aminotransferase 8 U/L (0-33); Albumin Level 3.2 g/dL (3.5-5.2); Alkaline Phosphatase 95 U/L (35-105); Anion Gap 16.9 (5-19); Aspartate Amino Transferase 9 U/L (0-32); Blood Urea Nitrogen 44 mg/dL (8-23); Calcium 9.1 mg/dL (8.5-10.5); Carbon Dioxide 27 mmol/L (22-29); Chloride 102 mmol/L (98-107); Globulin 3.4 g/dL (1.3-4.6); Glomerular Filtration Rate 38.2 mL/min (90-130); Glucose 159 mg/dL (65-115); Magnesium 1.9 mg/dL (1.7-2.3); Osmolality Calculated 309 mOsm/kg (285-295); Phosphorus 3.5 mg/dL (2.5-4.5); Potassium 3.9 mmol/L (3.5-5.1); Sodium 142 mmol/L (136-145); Total Bilirubin 0.8 mg/dL (0.15-1.2); Total Protein 6.6 g/dL (6.6-8.7)
[2024-09-13 05:08] LABS: Chol HDL Ratio 2.21 mg/dL (0.0-4.40); Cholesterol 106 mg/dL (0-200); HDL Cholesterol 48 mg/dL (60-100); LDL Cholesterol Calculated 48 mg/dL (50-129); Triglycerides 48 mg/dL (0-150)
[2024-09-13] MEDS: levothyroxine 50 mcg Tablet PO (05:59)
[2024-09-13] MEDS: pantoprazole DR 40 mg Tablet PO (05:59)
[2024-09-13] MEDS: aspirin 81 mg EC Tablet PO (06:00)
[2024-09-13] MEDS: ticagrelor 90 mg Tablet PO ×2 (06:00→21:09)
[2024-09-13 06:24] LABS: Glucose Point of Care 171 mg/dL (70-110)
--- NOTE | 2024-09-13 06:27 | PC.NURSE ---
Hold Received telephone order from Dr Ramírez to hold patient's scheduled dose of 30 units of lantus.
[2024-09-13] MEDS: heparin drip 25,000 UNIT/500 ML PREMIX 22 UNIT IV (09:33)
[2024-09-13] MEDS: buPROPion SR (12 HR) 100 mg Tablet 200 MG PO ×2 (09:37→17:19)
[2024-09-13] MEDS: metoprolol tartrate 1 mg/1 mL SDV 5 mL 5 MG IVP ×4 (09:37→20:27)
--- NOTE | 2024-09-13 09:40 | PM.CONSULT ---
Providers/Reason For Consult Consulting Physician/Specialty*: General Surgery Reason for Consult*: Small bowel obstruction Attending Physician: Clovis Szymanski MD Primary Care Provider: Niko Jerez MD History of Present Illness History of Present Illness Watson Bridges is a 63 year old female who presented to the hospital with chest pain and depression and nausea. Patient has extensive cardiac history has had multiple stents placed and had had restenosis of those stents. She is on multiple blood thinners and has overall poor health. 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 She was admitted to the hospitalist team for her cardiac symptoms during admission she was complaining of abdominal pain and therefore a CT was obtained which showed evidence of a small bowel obstruction with a transition point in the mid abdomen, she also has a new hernia of the midline but obstruction that does not appear to be at the level of the hernia. Patient is not a very reliable historian, does not remember when her last bowel movement was according to her last time she passed gas was 4 days ago Review of Systems General: Reports: 10 or more systems reviewed and unremarkable except in HPI and below Medications/Allergies Home Medications ?Medication ?Instructions ?Recorded ?Confirmed ?Last Taken ?Type tamsulosin 0.4 mg capsule 0.4 mg PO BEDTIME@01/06/23 09/12/24 09/11/24 History cholecalciferol (vitamin D3) 1,250 50,000 unit PO Q7D 01/18/23 09/12/24 07/20/24 History mcg (50,000 unit) capsule nitroglycerin 0.4 mg sublingual 0.4 mg sublingual Q5M PRN Chest 01/18/23 09/12/24 Unknown History tablet (Nitrostat) Pain potassium chloride 10 mEq 10 meq PO DAILY@01/18/23 09/12/24 09/12/24 History tablet,extended release ropinirole 0.5 mg tablet 0.5 mg PO BEDTIME@22 #30 tabs 01/24/23 09/12/24 09/11/24 Rx levothyroxine 25 mcg capsule 50 mcg PO QAM 05/08/23 09/12/24 09/12/24 History hydrocodone 10 mg-acetaminophen 1 tab PO Q6H PRN Pain, Moderate 09/07/23 09/12/24 09/12/24 History 325 mg tablet pantoprazole 40 mg tablet,delayed 40 mg PO QAM 09/07/23 09/12/24 09/12/24 History release trazodone 50 mg tablet 50 mg PO BEDTIME 09/07/23 09/12/24 09/11/24 History bupropion HCl 200 mg tablet,12 hr 200 mg PO BID 09/14/23 09/12/24 09/12/24 History sustained-release insulin lispro 100 unit/mL 29 sliding scale dose SUBCUT TID 09/14/23 09/12/24 09/12/24 History subcutaneous pen (Humalog KwikPen (U-100) Insulin) acetaminophen 650 mg 1,300 mg PO Q8H PRN Pain 11/14/23 09/12/24 07/10/24 History tablet,extended release aspirin 81 mg tablet,delayed 81 mg PO DAILY@07 #60 tabs 11/23/23 09/12/24 09/12/24 Rx release ticagrelor 90 mg tablet (Brilinta) 90 mg PO BID@07,22 #120 tabs 11/23/23 09/12/24 09/11/24 Rx ranolazine 500 mg tablet,extended 500 mg PO BID #60 tabs 12/22/23 09/12/24 09/12/24 Rx release,12 hr insulin glargine 100 unit/mL (3 30 unit SUBCUT QAM 02/28/24 09/12/24 09/12/24 History mL) subcutaneous pen (Lantus Solostar U-100 Insulin) isosorbide mononitrate 60 mg 60 mg PO DAILY 02/28/24 09/12/24 09/12/24 History tablet,extended release 24 hr bumetanide 2 mg tablet 2 mg PO DAILY #60 tabs 03/24/24 09/12/24 09/12/24 Rx metoprolol tartrate 50 mg tablet 50 mg PO BID #60 tabs 03/24/24 09/12/24 09/12/24 Rx atorvastatin 80 mg tablet 80 mg PO BEDTIME 07/22/24 09/12/24 09/11/24 History ondansetron HCl 4 mg tablet 4 mg PO Q4H PRN Nausea And Vomiting 07/22/24 09/12/24 07/21/24 History albuterol sulfate 2.5 mg/3 mL 2.5 mg inhalation Q4H PRN 08/14/24 09/12/24 Unknown History (0.083 %) solution for nebulization Shortness Of Breath Or Wheezing calcium carbonate 1,000 mg PO DAILY 09/12/24 09/12/24 Unknown History docusate sodium 100 mg capsule 100 mg PO BID 09/12/24 09/12/24 09/12/24 History phenazopyridine 200 mg tablet 200 mg PO Q8H PRN Urinary Retention 09/12/24 09/12/24 Unknown History Allergies Allergy/AdvReac Type Severity Reaction Status Date / Time hyoscyamine Allergy Severe ADR-Itching Verified 08/14/24 15:08 cefdinir Allergy Unknown Verified 08/14/24 15:08 ciprofloxacin (From Cipro) Allergy hives Verified 08/14/24 15:08 citalopram Allergy effects Verified 08/14/24 15:08 speach and memory clopidogrel (From Plavix) Allergy unk Verified 08/14/24 15:08 coconut Allergy Unknown Verified 08/14/24 15:08 ibuprofen Allergy RASH/ Verified 08/14/24 15:08 SWELLING famotidine AdvReac Mild itching Verified 08/14/24 15:08 esomeprazole (From Nexium) AdvReac Unknown Verified 08/14/24 15:08 Current Medications Generic Name Dose Route Start Last Admin Trade Name Freq PRN Reason Stop Dose Admin Hydrocodone Bitart/Acetaminophen 1 tab 09/12/24 20:08 09/13/24 04:13 Hydrocodone-Acetaminophen 10-325 Mg Tablet PO 1 tab Q6H PRN Administration Pain, Moderate Atorvastatin Calcium 80 mg 09/12/24 21:00 09/12/24 23:04 Atorvastatin 40 Mg Tablet PO 80 mg QPM SAÚL Administration Bupropion HCl 200 mg 09/13/24 09:00 09/13/24 09:37 Bupropion Sr (12 Hr) 100 Mg Tablet PO 200 mg BID SAÚL Administration Carvedilol 6.25 mg 09/12/24 15:45 09/12/24 16:16 Carvedilol 6.25 Mg Tablet PO 6.25 mg BID SAÚL Administration Docusate Sodium 100 mg 09/12/24 20:08 09/13/24 09:29 Docusate Sodium 100 Mg Capsule PO Not Given BID SAÚL Hydralazine HCl 10 mg 09/12/24 20:08 09/13/24 03:49 Hydralazine 20 Mg/Ml Inj 1 Ml IVP 10 mg Q4H PRN Administration SBP More than 160 mmhg Nitroglycerin/Dextrose 50 mg in 250 mls @ 0 mls/hr 09/12/24 15:15 09/12/24 20:08 Nitroglycerin Drip IV 20 mcg/min .Q0M SAÚL 6 mls/hr Titration Protocol Per Protocol Heparin Sodium/Sodium Chloride 25,000 unit in 500 mls @ 0 mls/hr 09/12/24 15:30 09/13/24 09:33 Heparin Drip IV 8.36 unit/kg/hr CONT SAÚL 22 mls/hr Administration Protocol Per Protocol Insulin Glargine 30 unit 09/13/24 06:00 09/13/24 06:26 Insulin Glargine 100 Units/1 Ml SUBCUT Not Given QAM SAÚL Ipratropium [place] 0.5 mg 09/12/24 20:08 09/13/24 08:42 Ipratropium 0.5 Mg/2.5 Ml Neb INHALATION Not Given Q6H.RESP SAÚL Levalbuterol HCl 0.63 mg 09/12/24 20:08 09/13/24 08:42 Levalbuterol 0.63 Mg/3 Ml Neb INHALATION 0.63 mg Q6H.RESP SAÚL Administration Levothyroxine Sodium 50 mcg 09/13/24 06:00 09/13/24 05:59 Levothyroxine 50 Mcg Tablet PO 50 mcg QAM SAÚL Administration Meropenem 1,000 mg 09/12/24 20:08 09/13/24 04:05 Meropenem 1,000 Mg Sdv IVP 1,000 mg Q8H SAÚL Administration Protocol Metoprolol Tartrate 5 mg 09/13/24 09:15 09/13/24 09:37 Metoprolol Tartrate 1 Mg/1 Ml Sdv 5 Ml IVP 5 mg Q4H SAÚL Administration Ondansetron HCl 4 mg 09/12/24 20:08 09/12/24 21:20 Ondansetron 2 Mg/Ml Sdv 2 Ml IVP 4 mg Q6H PRN Administration vomiting, or N/V if npo Ranolazine 500 mg 09/12/24 20:08 09/12/24 23:04 Ranolazine (12hr) 500 Mg Tablet PO 500 mg BID SAÚL Administration Ticagrelor 90 mg 09/12/24 22:00 09/13/24 06:00 Ticagrelor 90 Mg Tablet PO 90 mg BID@, SAÚL Administration PFSH Acute PFSH: Medical History (Updated 09/13/24 @ 09:46 by Zurdo Howe MD) Otitis media, unspecified, bilateral Elevated troponin CAD (coronary artery disease) Non-ST elevation PA (NSTEMI) DM type 2 (diabetes mellitus, type 2) Unstable angina pectoris Acute kidney injury CHF (congestive heart failure) Chest pain Status post left heart catheterization (LHC) Groin hematoma Left ACL tear Fracture of fifth toe, left, closed Derangement of lateral meniscus of right knee Derangement of medial meniscus of right knee Chronic kidney disease (CKD) Lumbar stenosis with neurogenic claudication Inability to walk Renal failure Chronic cystitis with hematuria Inability to urinate Atherosclerotic heart disease of [place] coronary artery with other forms of angina pectoris Lower extremity weakness Depression with anxiety Coronary artery disease due to type 2 diabetes mellitus Morbid obesity Generalized muscle weakness Type 2 diabetes mellitus with diabetic polyneuropathy Diabetes mellitus Small bowel strangulation Dyslipidemia Chronic cystitis Gross hematuria Osteoporosis Morbid obesity Constipation Migraine headache Bilateral lower extremity edema RLS (restless legs syndrome) GERD (gastroesophageal reflux disease) BETH (obstructive sleep apnea) CVA (cerebral vascular accident) HTN (hypertension) Pulmonary embolism, bilateral Opioid contract exists Long-term use of high-risk medication Chronic low back pain Surgical History Status post coronary artery stent placement Status post lumbar laminectomy H/O heart artery stent S/P hysterectomy S/P tonsillectomy and adenoidectomy S/P appendectomy S/P cholecystectomy Hx of total knee replacement History of partial surgical removal of colon Family History Grandfather Cancer Family/Other Myocardial infarct MOTHER, FATHER, BROTHER, SISTER Hypertension Diabetes Mother , at age 66 CAD (coronary artery disease) Father , at age 74 CAD (coronary artery disease) Sister CAD (coronary artery disease) Brother CAD (coronary artery disease) Other Stroke Denies family history of Anesthesia complication Bleeding disorder Social History Smoking and tobacco/nicotine status: never used tobacco/nicotine Alcohol intake: never Substance/Drug Use: current Substance/Drug use frequency: other Other substance/drug use details: smokes medical marijauna occasionally at night to help her sleep Lives independently: Yes Marital status: Current occupational status: disabled Current gender identity: Female Special vik needs: No Vitals/I&O/Wt Last Vital Signs Temp 98.1 F 09/13/24 06:30 Pulse 110 H 09/13/24 08:46 Resp 20 H 09/13/24 08:42 BP 188/83 09/13/24 04:00 Pulse Ox 94 09/13/24 08:42 O2 Del Method Nasal Cannula 09/13/24 08:42 O2 Flow Rate 3 09/13/24 08:42 09/12/24 09/13/24 09/13/24 22:59 06:59 14:59 Intake Total 239.65 / 239.65 184.633 / 424.283 94.367 / 94.367 Output Total 1950 / 1950 Balance 239.65 / 239.65 -1765.367 / -1525.717 94.367 / 94.367 Weight last 48 hrs Weight 284 lb 6.341 oz Weight 256 lb Weight 256 lb Weight 290 lb Physical Exam Narrative: Patient appears weak, she has high BMI HENMT: OTHER: NG in place with bilious output GI: OTHER: Abdomen is soft, there is some tenderness in the right hemiabdomen, there is good bowel sounds. She does have some tenderness also at the level of her hernia. Data 09/13/24 04:14 09/13/24 04:14 Micro: Microbiology 09/12/24 21:11 Blood Culture - Preliminary Blood SPECIMEN COLLECTED 09/12/24 21:03 Blood Culture - Preliminary Blood SPECIMEN COLLECTED A&P Assessment and plan (1) Abdominal wall hernia: (2) Pulmonary embolism, bilateral: (3) Obesity: (4) Goals of care, counseling/discussion: (5) Small bowel obstruction: Plan After complete history, physical examination and review of all available clinical data the following is my assessment. Patient does have a small bowel obstruction, this is likely in the setting of intra-abdominal adhesions from previous surgical interventions. Conservative management is indicated including IV fluid resuscitation, pain control, electrolyte correction and NG tube decompression. NG tube was placed overnight with 800 cc of output. Currently minimal output. The plan will be to proceed with decompression at least for the next 24 hours at that point we will do a Gastrografin trial. I have explained to the patient that she would be a very poor surgical candidate in the case that we need to proceed to the OR for this bowel obstruction. We will reserve surgical intervention as a last effort in this patient as she is extremely high risk for intraoperative and postoperative mortality, this is due to her significant cardiac history, current anticoagulant use and history of multiple intra-abdominal surgeries. She also looks overall with poor functional status and uses oxygen at baseline. I have explained to her that in the case of failure to progression over the next 4 to 5 days we will have to have extensive discussion regarding goals of care before deciding on proceeding with any kind of intervention. She shows understanding is agreeable with the plan at this time. Current CODE STATUS is allow natural PDMP PDMP Reviewed: Not Reviewed Coding Level of Care Code Acute Code for Chg Fwd Diagnoses Abdominal wall hernia K43.9 Pulmonary embolism, bilateral I26.99 Obesity E66.9 Goals of care, counseling/discussion Z71.89 Small bowel obstruction K56.609
[2024-09-13] MEDS: insulin lispro 100 unit/1 mL SUBCUT ×2 (09:57→20:27)
[2024-09-13 09:58] LABS: Glucose Point of Care 203 mg/dL (70-110)
[2024-09-13 10:58] LABS: Partial Thromboplastin Time 74.6 SECONDS (23.9-36.7)
--- NOTE | 2024-09-13 11:00 | P.PN_ITS ---
<Statement entered by Jaiden Newell M.D - 09/13/24 22:59> Patient was evaluated and cared for in conjunction with an advanced practice practitioner. I personally examined the patient and reviewed the chart and all pertinent data including imaging, telemetry, and laboratory results. I discussed the patient in detail with the advanced practice practitioner. Please see their note for complete progress note, results and agreed upon plan of care for the patient. GENERAL: Patient is alert and oriented HEART: Regular S1 and S2 LUNGS: Clear to auscultation bilaterally EXTREMITIES: Lower extremities with 1+ edema Subjective 2 Subjective: Patient was moved to ICU last night, found to have small bowel obstruction and NG tube was placed for decompression. Hemoglobin 9.8, creatinine 1.4. Will continue Brilinta orally, can administer aspirin per rectum. No chest pain reported this morning. Troponin series yesterday was flat: 116-> 122-> 127. Vitals/I&O/Wt Last Vital Signs Temp 99.3 F 09/13/24 09:35 Pulse 98 09/13/24 13:18 Resp 18 09/13/24 13:17 BP 127/78 09/13/24 12:05 Pulse Ox 96 09/13/24 13:17 O2 Del Method Nasal Cannula 09/13/24 13:17 O2 Flow Rate 2 09/13/24 13:17 09/12/24 09/13/24 09/13/24 22:59 06:59 14:59 Intake Total 239.65 / 424.283 184.633 / 424.283 211.634 / 211.634 Output Total 1950 / 1950 1400 / 1400 Balance 239.65 / -1525.717 -1765.367 / -1525.717 -1188.366 / -1188.366 Weight last 48 hrs Weight 284 lb 6.341 oz Weight 256 lb Weight 256 lb Weight 290 lb Physical Exam 2 Const: COMMON NORMALS: no acute distress and patient oriented x3 GENERAL APPEARANCE: cooperative and comfortable ORIENTATION/CONSCIOUSNESS: Yes awake, Yes oriented to person and Yes oriented to place Chest: COMMONS NORMALS: normal inspection of the chest and normal palpation of entire chest wall CHEST: Yes Symmetrical chest wall rise Resp: COMMON NORMALS: normal respiratory effort, No retractions and No use of accessory muscles EFFORT & INSPECTION: Yes symmetric chest movement A USCULTATION: diminished lung sounds bilateral in the lower lung [place] Cardio: COMMON NORMALS: regular rate, regular rhythm, S1 normal heart sound present, S2 normal heart sound present, No gallops present (Cardio), No clicks present (Cardio), No murmurs present (Cardio) and No rub (Cardio) RATE: r egular rate RHYTHM: regular rhythm HEART SOUNDS: S1 normal heart sound present and S2 normal heart sound present PERIPHERAL PULSES: radial pulses present Extremity: GENERAL: Yes edema (1+ pitting lower extremity) Neuro: COMMON NORMALS: patient oriented x3 and moves all extremities S ENSORIUM/ORIENTATION: Yes oriented to person and Yes oriented to place Data 09/13/24 04:14 09/13/24 04:14 Micro: Microbiology 09/12/24 21:11 Blood Culture - Preliminary Blood SPECIMEN COLLECTED 09/12/24 21:03 Blood Culture - Preliminary Blood SPECIMEN COLLECTED A&P Assessment and plan (1) CAD (coronary artery disease): Qualifiers: Coronary Disease-Associated Artery/Lesion type: [place] artery [place] vs. transplanted heart: [place] heart Associated angina: angina presence unspecified Qualified Code(s): I25.10 - Atherosclerotic heart disease of [place] coronary artery without angina pectoris (2) Chest pain: Qualifiers: Chest pain type: unspecified Qualified Code(s): R07.9 - Chest pain, unspecified (3) Elevated troponin: (4) CHF (congestive heart failure): Qualifiers: Heart failure chronicity: acute on chronic Heart failure type: systolic Qualified Code(s): I50.23 - Acute on chronic systolic (congestive) heart failure (5) Hypertensive urgency: Plan Continue medical management of elevated troponin with Brilinta, aspirin, metoprolol (switched to IV for now), systolic CHF. Continue diuresis with IV Lasix as needed, she appears fairly euvolemic today. PDMP PDMP Reviewed: Not Reviewed Attestations 2 Medical Necessity Statement*: Systolic CHF and elevated troponin Coding Level of Care Code Acute Code for [facility] Diagnoses Coronary artery disease involving [place] coronary artery of [place] heart, angina presence unspecified I25.10 Coronary Disease-Associated Artery/Lesion type: [place] artery [place] vs. transplanted heart: [place] heart Associated angina: angina presence unspecified Chest pain, unspecified type R07.9 Chest pain type: unspecified Elevated troponin R77.8 Acute on chronic systolic congestive heart failure I50.23 Heart failure chronicity: acute on chronic Heart failure type: systolic Hypertensive urgency I16.0
--- OUTSIDE RECORDS SUMMARY | 2024-09-13 11:00 | XMS_ITS ---
Author Organization [facility] Address [address] [place] [address] Care Team Providers Care Pan Pusher Name Role Phone Rk Jerez Primary Care Provider [phone] Ganesh Cobian DO Unavailable Unavailable REASON FOR VISIT Refills Medications Medication SIG (Take, Route, Frequency, Duration) Notes Start Date End Date Status HYDROcodone-Acetaminophen 10-325 MG 1 tablet as needed Orally every 6 hrs for 30 days 08/16/2024 09/11/2024 Active Encounters Encounter Location Date Provider Diagnosis [facility] [address] [place] [id number] 08/12/2024 Rk Jerez Plan Of Treatment Medication Medication Name Sig Start Date Stop Date Notes HYDROcodone-Acetaminophen 10-325 MG 1 tablet as needed Orally every 6 hrs for 30 days 08/16/2024 09/11/2024 Next Appt Details Provider Name:Rk Jerez, 09/20/2024 09:20:00 AM, [address], [place], [address], Progress Notes * DAVIS HANDLEY EDOB: [birth year] (63 yo F)Acc No.[id number]:08/12/2024 Patient:?ENDER DAVIS Childers :1960???Age:63 Y???Sex:Female Address:[address], [place] [address] * Refills? Refill HYDROcodone-Acetaminophen Tablet, 10-325 MG, Orally, 120, 1 tablet as needed, every 6 hrs, 30 days, Refills=0 * true * Date:? 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
--- OUTSIDE RECORDS SUMMARY | 2024-09-13 11:00 | XMS_ITS | Patient Health Record ---
Author Organization [facility] Address [address] [place] [address] Care Team Providers Care Grinding Room Supervisor Name Role Phone Rk Jerez Primary Care Provider Mango JUNIOR Ganesh Unavailable Unavailable Migration, Provider Unavailable Unavailable Allergies Allergen (clinical drug ingredient) Drug/Non Drug [...] Active morphine Morphine Unknown Drug Allergy Active Reason For Referral No Information Medications Medication SIG (Take, Route, Frequency, Duration) Notes Start Date End Date Status Escitalopram Oxalate 10 mg TAKE ONE TABLET BY MOUTH EVERY DAY for 30 Active Levothyroxine Sodium 25 mcg TAKE ONE TABLET BY MOUTH EVERY DAY before meal for 30 Active BD Insulin Syringe U/F 31G X 5/16 0.5 ML USE DIRECTED for 30 Active buPROPion HCl *Pick strength-form from [facility] for eRX* Active Sulfamethoxazole-Tri methoprim *Pick strength-form from [facility] for eRX* Active Buspirone *Reorder from [facility] for eRx and Interaction Alerts* Active Cetirizine *Reorder from [facility] for eRx and Interaction Alerts* Active UltiCare Mini Pen [place] 31G X 6 MM USE as directed for 25 Active Acetaminophen 650 MG/20.3ML as directed Orally Active Aspirin *Pick strength-form from [facility] for eRX* Active Triamterene-HCTZ 37.5-25 MG 1 tablet in the morning Orally Once a day Active Calcium Carbonate 600 MG 1 tablet with food Orally Twice a day Active Digoxin 125 MCG 1 tablet Orally Once a day for 90 days 12/19/2022 Active Aspirin 81 MG 1 tablet Orally Once a day Active Isosorbide Mononitrate ER 30 mg TAKE ONE TABLET BY MOUTH EVERY DAY for 30 Active Trulicity 1.5 MG/0.5ML inject 1.5mg SUBCUTANEOUSLY EVERY 7 DAYS for 28 Active traZODone HCl 50 mg TAKE ONE TABLET BY MOUTH At Bedtime for 30 Active rOPINIRole HCl 0.5 mg TAKE ONE TABLET BY MOUTH At Bedtime for 30 Active metFORMIN HCl 1000 MG TAKE ONE TABLET BY MOUTH EVERY DAY for 30 Active HumaLOG KwikPen 100 unit/mL inject PER sliding scale SUBCUTANEOUSLY BEFORE meals AND AT bedtime for 30 Active Vitamin D (Ergocalciferol) 1.25 MG (49148 UT) 1 capsule Orally fridays for 30 days Active Ondansetron HCl 4 mg TAKE ONE TABLET BY MOUTH TWICE DAILY NEEDED FOR NAUSEA AND VOMITING for 15 Active Brilinta 90 mg TAKE ONE TABLET BY MOUTH TWICE DAILY for 30 Active buPROPion HCl ER (SR) 200 mg TAKE ONE TABLET BY MOUTH EVERY TWELVE HOURS for 30 Active Tamsulosin HCl 0.4 mg TAKE ONE CAPSULE BY MOUTH DAILY for 30 Active Pantoprazole Sodium 40 mg TAKE ONE TABLET BY MOUTH EVERY DAY for 30 Active Sertraline HCl 25 mg TAKE ONE TABLET BY MOUTH At Bedtime for 30 Active busPIRone HCl 15 MG 1 tablet Orally Twic e a day Active rOPINIRole HCl 0.25 MG 1 tablet 1 to 3 hours before bedtime Orally Once a day Active Potassium Chloride ER 10 mEq TAKE ONE TABLET BY MOUTH EVERY DAY for 30 Active Social History Tobacco Use: Social History Observation Description Date Details (start date - stop date) Never Smoker NA - NA xTobacco Use/Smoking Question Answer Notes Are you a nonsmoker Alcohol Screen (Audit-C) Question Answer Notes Did you have a drink containing alcohol in the p ast year? No Points 0 Interpretation Negative Section Notes: nonsmoker, denies alcohol, c affiene dr pepper tea, nonsmoker, denies alcohol, c affiene dr pepper tea, nonsmoker, denies alcohol, c affiene tea, nonsmoker, denies alcohol, c affiene tea, Problems Problem Type SNOMED Code ICD Code Onset Dates Problem Status W/U Status Risk Notes Problem 594788696 Type 2 diabetes mellitus with unspecified complications (E11.8) Active confirmed Problem 54685536 Restless legs syndrome (G25.81) Active confirmed Problem 42095300 Obstructive slee p apnea (adult) (pediatric) (G47.33) Active confirmed Problem Hypertensive heart failure (08269630) Hypertensive heart disease with heart failure (I11.0) Active confirmed Problem STEMI - ST elevation myocardial infarction (231315206) ST elevation (STEMI) myocardial infarction involving other sites (I21.29) Active confirmed Problem Ischemic cardiomyopathy (461818804) Ischemic cardiomyopathy (I25.5) Active confirmed Problem Chronic total occlusion of coronary artery (356432624665843) Chronic total occlusion of coronary artery (I25.82) Active confirmed Problem Acute on chronic systolic heart failure (268786025) Acute on chronic systolic (congestive) heart failure (I50.23) Active confirmed Problem 170820706 Chronic diastoli c (congestive) heart failure (I50.32) Active confirmed Problem 172308067 Gastro-esophagea l reflux disease without esophagitis (K21.9) Active confirmed Problem 45350623 Age-related osteoporosis without current pathological fracture (M81.0) Active confirmed Problem Palpitations (61472077) Palpitations (R00.2) Active confirmed Problem Shortness of breath (010095387) Shortness of breath (R06.02) Active confirmed Problem Localized edema (235475902) Localized edema (R60.0) Active confirmed Problem Essential hypertension (02920502) Essential hypertension (I10) Active confirmed Problem 136467736 Type 2 diabetes mellitus without complication, unspecified whether fpc insulin use (E11.9) Active confirmed Problem 78227517 Constipation, unspecified constipation type (K59.00) Active confirmed Problem Atherosclerotic heart disease of [place] coronary artery without angina pectoris (278655994948347) Coronary artery disease involving [place] coronary artery of [place] heart without angina pectoris (I25.10) Active confirmed Problem 872364430 Atherosclerosis of [place] coronary artery of [place] heart without angina pectoris (I25.10) Active confirmed Problem 31223247 Hyperlipidemia, unspecified hyperlipidemia type (E78.5) Active confirmed Problem Diabetes mellitus without complication (504311537) Diabetes (E11.9) Active confirmed Problem Dizziness (071005027) Dizziness (R42) Active confirmed Problem Hypertension (52781034) HTN (hypertension) (I10) Active confirmed Problem Post percutaneous transluminal coronary angioplasty (514679014) History of coronary artery stent placement (Z95.5) Active confirmed Problem Post percutaneous transluminal coronary angioplasty (180454027) Hx of heart artery stent (Z95.5) Active confirmed Problem Atherosclerotic heart disease of [place] coronary artery without angina pectoris (015005168056057) Arteriosclerosis of coronary artery (I25.10) Active confirmed Problem Hyperlipidemia (53756901) Hyperlipidemia (E78.5) Active confirmed Problem Acute non-ST segment elevation myocardial infarction (053666580) Non-ST elevated myocardial infarction (non-STEMI) (I21.4) Active confirmed Problem 300572683 Atherosclerosis of [place] coronary artery of [place] heart with angina pectoris (I25.119) Active confirmed Encounters Encounter Location Date Provider Diagnosis [facility] [address] [place] [address] 10/02/2023 [facility] [address] [place] [address] 11/14/2023 [facility] [address] [place] [address] 11/16/2023 [facility] [address] [address] 01/15/2024 [facility] [address] [address] 02/21/2024 [facility] [address] [address] 02/21/2024 [facility] [address] [address] 03/19/2024 [facility] [address] [address] 04/16/2024 [facility] [address] [address] 04/24/2024 Christopher [facility] [address] [place] [address] 04/24/2024 Rk [facility] [address] [place] [address] 05/20[facility] [address] [place] [address] 06/10/2024 Rk [facility] [address] [place] [address] 07/04/2024 [facility] [address] [place] [address] 07/08/2024 Rk [facility] [address] [place] [address] 08/12/2024 Rk Jerez [facility] 0 0 12/30/2023 Provider Migration [facility] 0 0 12/31/2023 Provider Migration [facility] 0 0 05/04/2024 Provider Migration Migrated[facility]Facility 0 0 05/05/2024 Provider Migration [facility] [address] [place] [address] 08/23/2024 Rk Jerez [facility] [address] [place] [address] 10/13/2023 Rk Jerez Ischemic cardiomyopathy I25.5 ; ST elevation (STEMI) myocardial infarction involving other sites I21.29 and Essential hypertension I10 [facility] [address] [place] [address] 11/10/2023 Rk Jerez Essential hypertension I10 and Hyperlipidemia E78.5 [place] [address] [place] [address] 12/15/2023 Rk Jerez Essential hypertension I10 ; History of coronary artery stent placement Z95.5 and Type 2 diabetes mellitus with unspecified complications E11.8 [facility] [address] [place] [address] 01/19/2024 Rk Jerez History of coronary artery stent placement Z95.5 ; Ischemic cardiomyopathy I25.[address] elevation (STEMI) myocardial infarction involving other sites I21.29 [facility] [address] [place] [address] 02/16/2024 Rk Jerez History of coronary artery stent placement Z95.5 and Ischemic cardiomyopathy I25.5 [facility] [address] [place] [address] 03/22/2024 Rk Jerez History of coronary artery stent placement Z95.5 ; Coronary artery disease involving [place] coronary artery of [place] heart without angina pectoris I25.10 ; ST elevation (STEMI) myocardial infarction involving other sites I21.29 and Essential hypertension I10 [place] [address] [place] [address] 04/19/2024 Rk Jerez Diabetes E11.9 ; History of coronary artery stent placement Z95.5 ; Chronic total occlusion of coronary artery I25.82 and Coronary artery disease involving [place] coronary artery of [place] heart without angina pectoris I25.10 [address] [place] [id number] [facility] [address] [place] [address] 05/17/2024 Rk Jerez History of coronary artery stent placement Z95.5 ; Type 2 diabetes mellitus with unspecified complications E11.8 and HTN (hypertension) I10 [place] [address] [place] [address] 06/21/2024 Rk Jerez Chronic total occlusion of coronary artery I25.82 and Type 2 diabetes mellitus without complication, unspecified whether flour blender insulin use E11.9 Assessments Encounter Date Diagnosis (ICD Code) Assessment Notes Treatment Notes Treatment Clinical Notes Section Notes 10/13/2023 Ischemic cardiomyopathy (ICD-10 - I25.5) 11/10/2023 Essential hypertension (ICD-10 - I10) 12/15/2023 Essential hypertension (ICD-10 - I10) 01/19/2024 History of coronary artery stent placement (ICD-10 - Z95.5) 02/16/2024 History of coronary artery stent placement (ICD-10 - Z95.5) 03/22/2024 History of coronary artery stent placement (ICD-10 - Z95.5) 04/19/2024 Diabetes (ICD-10 - E11.9) Pt requires Diabetic shoes. We will fax order and notes to HOME in [place]. 05/17/2024 History of coronary artery stent placement (ICD-10 - Z95.5) 06/21/2024 Chronic total occlusion of coronary artery (ICD-10 - I25.82) 06/21/2024 Type 2 diabetes mellitus without complication, unspecified whether flour blender insulin use (ICD-10 - E11.9) 04/19/2024 History of coronary artery stent placement (ICD-10 - Z95.5) 05/17/2024 Type 2 diabetes mellitus with unspecified complications (ICD-10 - E11.8) 01/19/2024 Ischemic cardiomyopathy (ICD-10 - I25.5) 03/22/2024 Coronary artery disease involving [place] coronary artery of [place] heart without angina pectoris (ICD-10 - I25.10) 02/16/2024 Ischemic cardiomyopathy (ICD-10 - I25.5) 12/15/2023 History of coronary artery stent placement (ICD-10 - Z95.5) 11/10/2023 Hyperlipidemia (ICD-10 - E78.5) 10/13/2023 ST elevation (STEMI) myocardial infarction involving other sites (ICD-10 - I21.29) 10/13/2023 Essential hypertension (ICD-10 - I10) 12/15/2023 Type 2 diabetes mellitus with unspecified complications (ICD-10 - E11.8) 01/19/2024 ST elevation (STEMI) myocardial infarction involving other sites (ICD-10 - I21.29) 03/22/2024 ST elevation (STEMI) myocardial infarction involving other sites (ICD-10 - I21.29) 04/19/2024 Chronic total occlusion of coronary artery (ICD-10 - I25.82) 05/17/2024 HTN (hypertension) (ICD-10 - I10) 04/19/2024 Coronary artery disease involving [place] coronary artery of [place] heart without angina pectoris (ICD-10 - I25.10) 03/22/2024 Essential hypertension (ICD-10 - I10) 08/23/2024 Other Medications reviewed, orders signed and documented with nursing staff. Vitals taken and recorded at [facility]. 10/13/2023 Other Medications reviewed, orders signed and documented with nursing staff. Vitals taken and recorded at [facility]. 11/10/2023 Other Medications reviewed, orders signed and documented with nursing staff. Vitals taken and recorded at [facility]. 12/15/2023 Other Medications reviewed, orders signed and documented with nursing staff. Vitals taken and recorded at [facility]. 01/19/2024 Other Medications reviewed, orders signed and documented with nursing staff. Vitals taken and recorded at [facility]. 02/16/2024 Other Medications reviewed, orders signed and documented with nursing staff. Vitals taken and recorded at [facility]. 03/22/2024 Other Medications reviewed, orders signed and documented with nursing staff. Vitals taken and recorded at [facility]. 04/19/2024 Other Medications reviewed, orders signed and documented with nursing staff. Vitals taken and recorded at [facility]. 05/17/2024 Other Medications reviewed, orders signed and documented with nursing staff. Vitals taken and recorded at [facility]. 06/21/2024 Other Medications reviewed, orders signed and documented with nursing staff. Vitals taken and recorded at [facility]. Plan Of Treatment Next Appt Details Provider Name:Rk Jerez, 09/20/2024 09:20:00 AM, [address], [place], [address], Insurance Providers Payer Name Payer Address Payer Phone Subscriber Number Group Number Insured Name Patient Relationship to Insured Coverage Start Date Coverage End Date [facility] Medicare Dual Complete PPO [address] [address] [place] [address] [id number] DAVIS HANDLEY Self - patient [place] the insured [place] [address] [place] [address] [phone] [id number] DAVIS HANDLEY Self - patient is the insured Medical (General) History Medical History History ICD Code diabetes cad htn hyperlipidemia covid vaccine x 2 Surgical History Surgery Date(Month/Year) [facility] showing severe stenosis of LAD, distal RCA, patent stent in OM2. PCI of mid LAD 09/15/22 [facility] showing severe stenosis of LAD, distal RCA and acutely occluded OM2. PCI of OM2 09/05/22 [facility] 1. Successful JORDIN to pro ximal to mid RCA. 2. previous stents to RCA, LAD and circumflex patent. 3. subtotal 1st diagonal vessel that is chronic. 10/12/22 Hernia Mesh removal - Dr. Currie Since 10-14-21 Hospitalization History Reason Date(Month/Year) CP 09/05/22 ED - CP 09/15/22
--- OUTSIDE RECORDS SUMMARY | 2024-09-13 11:00 | XMS_ITS ---
Author Organization [facility] Address [address] [place] [address] Care Team Providers Care Campaign Worker Name Role Phone Rk Jerez Primary Care Provider Ganesh Cobian DO Unavailable Unavailable Allergies Allergen (clinical drug ingredient) [...] Active morphine Morphine Unknown Drug Allergy Active REASON FOR VISIT Custodial Rounds, skilled nursing visit at [place], [place] Medications Medication SIG (Take, Route, Frequency, Duration) Notes Start Date End Date Status Buspirone *Reorder from [facility] for eRx and Interaction Alerts* Active UltiCare Mini Pen [place] 31G X 6 MM USE as directed for 25 Active Aspirin *Pick strength-form from [facility] for eRX* Active Ondansetron HCl 4 mg TAKE ONE TABLET BY MOUTH TWICE DAILY NEEDED FOR NAUSEA AND VOMITING for 15 Active buPROPion HCl ER (SR) 200 mg TAKE ONE TABLET BY MOUTH EVERY TWELVE HOURS for 30 Active Levothyroxine Sodium 25 mcg TAKE ONE TABLET BY MOUTH EVERY DAY before meal for 30 Active BD Insulin Syringe U/F 31G X 5/16 0.5 ML USE DIRECTED for 30 Active buPROPion HCl *Pick strength-form from [facility] for eRX* Active Sulfamethoxazole-Tri methoprim *Pick strength-form from [facility] for eRX* Active Cetirizine *Reorder from [facility] for eRx and Interaction Alerts* Active Escitalopram Oxalate 10 mg TAKE ONE TABLET BY MOUTH EVERY DAY for 30 Active busPIRone HCl 15 MG 1 tablet Orally Twice a day Active HYDROcodone-Acetamin ophen 10-325 MG 1 tablet as needed Orally every 6 hrs for 30 days 08/16/2024 09/11/2024 Active Vitamin D (Ergocalciferol) 1.25 MG (92294 UT) 1 capsule Orally fridays for 30 days Active Brilinta 90 mg TAKE ONE TABLET BY MOUTH TWICE DAILY for 30 Active rOPINIRole HCl 0.25 MG 1 tablet [...] SUBCUTANEOUSLY EVERY 7 DAYS for 28 Active metFORMIN HCl 1000 MG TAKE ONE TABLET BY MOUTH EVERY DAY for 30 Active HumaLOG KwikPen 100 unit/mL inject PER sliding scale SUBCUTANEOUSLY BEFORE meals AND AT bedtime for 30 Active Acetaminophen 650 MG/20.3ML as directed Orally Active Triamterene-HCTZ 37.5-25 MG 1 tablet in the morning Orally Once a day Active Calcium Carbonate 600 MG 1 tablet with food Orally Twice a day Active traZODone HCl 50 mg TAKE ONE TABLET BY MOUTH At Bedtime for 30 Active rOPINIRole HCl 0.5 mg TAKE ONE TABLET BY MOUTH At Bedtime for 30 Active Tamsulosin HCl 0.4 mg TAKE ONE CAPSULE BY MOUTH DAILY for 30 Active Sertraline HCl 25 mg TAKE ONE TABLET BY MOUTH At Bedtime for 30 Active Potassium Chloride ER 10 mEq TAKE ONE TABLET BY MOUTH EVERY DAY for 30 Active Pantoprazole Sodium 40 mg TAKE ONE TABLET BY MOUTH EVERY DAY for 30 Active Encounters Encounter Location Date Provider Diagnosis [facility] [address] [place] [address] 08/23/2024 Rk Jerez Assessments Encounter Date Diagnosis (ICD Code) Assessment Notes Treatment Notes Treatment Clinical Notes Section Notes 08/23/2024 Other Medications reviewed, orders signed and documented with nursing staff. Vitals taken and recorded at [facility]. Plan Of Treatment Treatment Notes Assessment Notes Other Medications reviewed , orders signed and documented with nursing staff. Vitals taken and recorded at [facility]. Next Appt Details Follow Up: 4 Weeks, Reason: Provider Name:Rk Jerez, 09/20/2024 09:20:00 AM, [address], [place], [address], Progress Notes * DAVIS HANDLEY EDOB: 3 (63 yo F)Acc No.[id number]:08/23/2024 Patient:?DAVIS HANDLEY Provider:?Rk Jerez MD :1960???Age:63 Y???Sex:Female D ate:08/23/2024 Address:[address] [place] [address] , [facility] [id number] Subjective: * Chief Complaints: * ???1. Custodial Rounds. 2 . skilled nursing visit at [place], [place]. * HPI: ???::? The patient is seen in the senior care today for follow-up. Staff reports no new complaints. The review of systems and exam are unchanged from previous. Patient denies pain and is comfortable. * Medical History:?Diabetes, C ad, Htn, Hyperlipidemia, Covid vaccine x 2. * Medications:?Taking Vitamin D (Ergocalciferol) 1.25 MG (42485 UT) Capsule 1 capsule Orally fridays , Taking Brilinta 90 mg Tablet TAKE ONE TABLET BY MOUTH TWICE DAILY , Taking HYDROcodone-Acetaminophen 10-325 MG Tablet 1 tablet as needed Orally every 6 hrs , stop date 09/11/2024, Taking Escitalopram Oxalate 10 mg Tablet TAKE ONE TABLET BY MOUTH EVERY DAY , Taking BD Insulin Syringe U/F 31G X 11/22 0.5 ML Miscellaneous USE DIRECTED , Taking Levothyroxine Sodium 25 mcg Tablet TAKE ONE TABLET BY MOUTH EVERY DAY before meal , Taking Sulfamethoxazole-Trimethoprim , Notes to Pharmacist: *Pick strength-form from [facility] for eRX*, Taking buPROPion HCl , Notes to Pharmacist: *Pick strength-form from [facility] for eRX*, Taking Cetirizine , Notes to Pharmacist: *Reorder from [facility] for eRx and Interaction Alerts*, Taking Buspirone , Notes to Pharmacist: *Reorder from [facility] for eRx and Interaction Alerts*, Taking Aspirin , Notes to Pharmacist: *Pick strength-form from [facility] for eRX*, Taking UltiCare Mini Pen [place] 31G X 6 MM Miscellaneous USE as directed , Taking buPROPion HCl ER (SR) 200 mg Tablet Extended Release 12 Hour TAKE ONE TABLET BY MOUTH EVERY TWELVE HOURS , Taking Ondansetron HCl 4 mg Tablet TAKE ONE TABLET BY MOUTH TWICE DAILY NEEDED FOR NAUSEA AND VOMITING , Taking Pantoprazole Sodium 40 mg Tablet Delayed Release TAKE ONE TABLET BY MOUTH EVERY DAY , Taking Tamsulosin HCl 0.4 mg Capsule TAKE ONE CAPSULE BY MOUTH DAILY , Taking Potassium Chloride ER 10 mEq Tablet Extended Release TAKE ONE TABLET BY MOUTH EVERY DAY , Taking Sertraline HCl 25 mg Tablet TAKE ONE TABLET BY MOUTH At Bedtime , Taking rOPINIRole HCl 0.5 mg Tablet TAKE ONE TABLET BY MOUTH At Bedtime , Taking traZODone HCl 50 mg Tablet TAKE ONE TABLET BY MOUTH At Bedtime , Taking HumaLOG KwikPen 100 unit/mL Solution Pen- injector inject PER sliding scale SUBCUTANEOUSLY BEFORE meals AND AT bedtime , Taking metFORMIN HCl 1000 MG Tablet TAKE ONE TABLET BY MOUTH EVERY DAY , Taking Acetaminophen 650 MG/20.3ML Solution as directed Orally , Taking Calcium Carbonate 600 MG Tablet 1 tablet with food Orally Twice a day , Taking Triamterene-HCTZ 37.5-25 MG Tablet 1 tablet in the morning Orally Once a day , Taking Aspirin 81 MG Tablet Delayed Release 1 tablet Orally Once a day , Taking Digoxin 125 MCG Tablet 1 tablet Orally Once a day , Taking Trulicity 1.5 MG/0.5ML Solution Pen-injector inject 1.5mg SUBCUTANEOUSLY EVERY 7 DAYS , Taking Isosorbide Mononitrate ER 30 mg Tablet Extended Release 24 Hour TAKE ONE TABLET BY MOUTH EVERY DAY , Taking rOPINIRole HCl 0.25 MG Tablet 1 tablet 1 to 3 hours before bedtime Orally Once a day , Taking busPIRone HCl 15 MG Tablet 1 tablet Orally Twice a day , Medication List reviewed and reconciled with the patient * Allergies:?Cefdinir: Allergy , Ciprofloxacin: rash - Allergy, Citalopram: Allergy, Famotidine: Allergy, Hyoscyamine: Allergy, Ibuprofen: Allergy, Morphine: Allergy, NexIUM: Allergy, Plavix: Allergy. Objective: * Vitals:? * Examination: ???General Examination: ?GENERAL APPEARANCE:?in no acute distress. Vital signs as documented..?NECK/THYROID:?no JVD.?SKIN:?warm and dry, without overt rashes..?HEART:?notable for regular rhythym, normal sounds and absence of murmurs, rubs or gallops..?LUNGS:?Lungs clear.?ABDOMEN:?unremarkable, no organomegaly , no masses, or abdominal aortic enlargement..? Assessment: Plan: * Treatment: * Procedure Codes:?43842 [facility] ARE SUBSEQ * Follow Up:?4 Weeks * Billing Information: * Visit Code:? * Procedure Codes:? [address] [facility] SUBSEQ. * Electronic signature of Tamar Jerez MD on 09/13/2024 at 11:00 AM SEWING MACHINE OPERATOR PAPER BAGS Sign off status: Pending * Provider:?Rk Jerez MD Doc e:?08/23/2024 Generated for Rian flores/Melanie/Vannesasmitting on:?09/13/2024 11:00 AM SEWING MACHINE OPERATOR PAPER BAGS History and Physical Notes * HPI (History of Present Illness) Category Sub-Category Detail Notes Category Not es : The patient is seen in the senior care today for follow-up. Staff reports no new complaints. The review of systems and exam are unchanged from previous. Patient denies pain and is comfortable. Examination Category Sub-Category Detail Notes Category Not es General Examination GENERAL APPEARANCE: in no ac maldonado distress. Vital signs as documented. NECK/THYROID: no JVD HEART: notable for regular rhythym, normal sounds and absence of murmurs, rubs or gallops. LUNGS: Lungs clear ABDOMEN: unremarkable, no org anomegaly , no masses, or abdominal aortic enlargement. SKIN: warm and dry, withou t overt rashes.
--- OUTSIDE RECORDS SUMMARY | 2024-09-13 11:00 | XMS_ITS ---
Author Organization [facility] Address [address] [place] [address] Care Team Providers Care Director Telehealth Name Role Phone Rk Jerez Primary Care Provider Ganesh Cobian DO Unavailable Unavailable REASON FOR VISIT Refills Medications Medication SIG (Take, Route, Frequency, Duration) Notes Start Date End Date Status HYDROcodone-Acetaminophen 10-325 MG 1 tablet as needed Orally every 6 hrs for 30 days 07/09/2024 08/07/2024 Active Encounters Encounter Location Date Provider Diagnosis [facility] [address] [place] [id number] 07/08/2024 Rk Jerez Plan Of Treatment Medication Medication Name Sig Start Date Stop Date Notes HYDROcodone-Acetaminophen 10-325 MG 1 tablet as needed Orally every 6 hrs for 30 days 07/09/2024 08/07/2024 Next Appt Details Provider Name:Rk Jerez, 09/20/2024 09:20:00 AM, [address], [place], [address], Progress Notes * DAVIS HANDLEY EDOB: 3 (63 yo F)Acc No.[id number]:07/08/2024 Patient:?MAYELA HANDLEYFEDERICO Childers :1960???Age:63 Y???Sex:Female Address:[address], [place] [address] * Refills? Refill HYDROcodone-Acetaminophen Tablet, 10-325 MG, Orally, 120, 1 tablet as needed, every 6 hrs, 30 days, Refills=0 * true * Date:? Generated for Rain flores/Melanie/Richard on:?09/13/2024 11:00 AM PROTOZOOLOGIST
[2024-09-13 11:04] LABS: Glucose Point of Care 187 mg/dL (70-110)
--- NOTE | 2024-09-13 11:20 | PM.PN ---
Subjective Subjective: Overnight after admission patient complained of abdominal pain for which CT abdomen pelvis was done and she was found to have small bowel obstruction. Today morning examination she states her abdominal pain is better but complains of chest heaviness. Continues to remain on nitro and heparin drip. Blood pressure on examination of 180 systolic with a heart rate of 110 bpm Vitals/I&O/Wt Last Vital Signs Temp 99.3 F 09/13/24 09:35 Pulse 111 H 09/13/24 09:35 Resp 22 H 09/13/24 09:35 BP 199/74 09/13/24 09:35 Pulse Ox 95 09/13/24 09:35 O2 Del Method Nasal Cannula 09/13/24 08:42 O2 Flow Rate 3 09/13/24 08:42 09/12/24 09/13/24 09/13/24 22:59 06:59 14:59 Intake Total 239.65 / 239.65 184.633 / 424.283 211.634 / 211.634 Output Total 1950 / 1950 500 / 500 Balance 239.65 / 239.65 -1765.367 / -1525.717 -288.366 / -288.366 Weight last 48 hrs Weight 129 kg Weight 116.12 kg Weight 116.12 kg Weight 131.542 kg Physical Exam Narrative: General: No acute distress, AO x3, chronically sick appearing, morbidly obese on 2 L of nasal cannula, NG tube in place HEENT: PERRLA, pupils bilaterally equal and reactive Chest: Bilateral bronchial breath sounds over lung [place], decreased air entry bilaterally in lower zone, fine crackles present up to mid lungs CVS: S1-S2 regular, no murmurs, no tachycardia, no gallops, no rubs Abdomen: Soft, nontender, no organomegaly, bowel sounds sluggish Neuro: No focal deficits, no facial deformity, AO x3, power 5/5 in all limbs Extremity: 2+ pitting edema up to mid thigh bilaterally Data 09/13/24 04:14 09/13/24 04:14 Micro: Microbiology 09/12/24 21:11 Blood Culture - Preliminary Blood SPECIMEN COLLECTED 09/12/24 21:03 Blood Culture - Preliminary Blood SPECIMEN COLLECTED A&P Assessment and plan (1) Non-ST elevation [place] (NSTEMI): History of CAD with recent in-stent restenosis to mid RCA and LCx. Coming in with chest pain and difficulty in breathing. Baseline troponin elevated. Cardiology recommendations. Given concern for small bowel obstruction for now plan will be to continue with medical management until patient starts having active further chest pain or changes in echocardiogram. Follow-up with results of limited echocardiogram. Continue with heparin drip. Changed to rectal aspirin 300 mg daily. Continue with Brilinta. Hold off on statin. Change metoprolol to IV 5 mg every 4 hours. Hold off for heart rate of less than 80 bpm. Appreciate A1c, lipid panel. (2) Hypertensive urgency: Goal blood pressure less than 140/90 mmHg with mean over 65. Continue with nitro drip. Also will help with chest pain in setting of non-ST elevation [place]. Switch to IV metoprolol as above. If blood pressure continues to be elevated we will start on clonidine patch. IV hydralazine 10 mg every 4 hours as needed for systolic blood pressure more than 160 mmHg. (3) CHF (congestive heart failure): Acute on chronic systolic heart failure. Last echocardiogram from April 2024 shows an EF of 40% with grade 1 diastolic dysfunction, mild LVH, moderate MR. Echocardiogram as above. Fluid restriction to less than 1500 cc. 40 mg of IV Lasix one-time. Strict input output charting, daily weights. Qualifiers: Heart failure chronicity: acute on chronic Heart failure type: systolic Qualified Code(s): I50.23 - Acute on chronic systolic (congestive) heart failure (4) Small bowel obstruction: Follow CT abdomen pelvis. Surgery consulted. Conservative treatment with decompression with NG tube for now. Medicines changed to IV or rectal as needed. Protonix daily, Zofran as needed. NG tube management as per surgical team. (5) Leukocytosis: Recent admission for bacterial pneumonia in July. Apreciate urinalysis. X-ray negative for consolidation for now. Could be in setting of SBO. Appreciate urine culture from past. Does have history of Enterococcus VRE UTI in the past. Most recently with pansensitive E. coli. Follow-up blood culture, urine culture. Continue with IV meropenem for now. (6) CKD (chronic kidney disease): Baseline creatinine of 1.3-1.6. As high as 1.9 in last 1 year. Slight improvement with creatinine down to 1.4 Strict input output charting, daily weights. Continue to monitor BMP daily. Qualifiers: Chronic kidney disease stage: stage 3 (moderate) (7) CAD (coronary artery disease): Qualifiers: Coronary Disease-Associated Artery/Lesion type: [place] artery [place] vs. transplanted heart: [place] heart Associated angina: angina presence unspecified Qualified Code(s): I25.10 - Atherosclerotic heart disease of [place] coronary artery without angina pectoris (8) DM type 2 (diabetes mellitus, type 2): Continue with home dose of Lantus. Sliding scale at high dose protocol. A1c 7.6. Qualifiers: Diabetes mellitus retirement insulin use: without medical terminologist use Diabetes mellitus complication status: without complication Qualified Code(s): E11.9 - Type 2 diabetes mellitus without complications (9) Morbid obesity: (10) Goals of care, counseling/discussion: (11) Chest pain: Qualifiers: Chest pain type: unspecified Qualified Code(s): R07.9 - Chest pain, unspecified Plan CODE STATUS: Discussed in detail with the patient. Sister and nephew will be the DPOA. Patient does not want any resuscitation. DNR/DNI. N.p.o. Heparin drip will be sufficient for DVT prophylaxis Protonix for PUD prophylaxis. PDMP PDMP Reviewed: Not Reviewed Attestations Medical Necessity Statement*: Requires further hospitalization for management of small bowel obstruction, chest pain with concern for non-ST elevation [place] in a patient with history of congestive heart failure, recent in-stent restenosis, hypertensive urgency Critical Care Time: The high probability of a clinically significant, sudden or life threatening deterioration of the patient's [Cardiac, renal, GI] system(s) required my full and direct attention, intervention and personal management. The critical care time is as shown. This time is in addition to time spent performing any reported procedures but includes the following: [x] Data and vital sign review and interpretation [x] Patient assessment, examination and intervention [x] Documentation [x] Medication orders and management Critical Care Time (min): 87 Coding Level of Care Code Critical Care >/= 30 minutes Critical care time (in minutes): 87 The high probability of a clinically significant, sudden or life threatening deterioration, as referenced in this documentation, required my full and direct attention, intervention and personal management. The critical care time shown is in addition to time spent performing any reported separately billable procedures and includes the following: [x] Data and vital sign review and interpretation [x] Patient assessment, examination and intervention [x] Medication orders and management [x] Patient/Family updates as able [x] Care Coordination and Documentation. Other Coding Information This patient has a high probability of clinically significant, sudden or life threatening deterioration of the patient's (neurological/pulmonary/cardiac/renal/ID/endocrine) systems required my full, direct attention, the highest level of physician preparedness for urgent intervention and personal management. I managed/supervised life or organ supporting interventions that required frequent physician assessment. I devoted my full attention in the ICU to the direct care of this patient for the period of time indicated above. Time I spent with family or surrogate(s) is included only if the patient was incapable of providing necessary information or participating in decision making. This time includes the following services provided: Telemetry review Hemodynamic interpretation, assessment and management Review and interpretation of CXR Review and interpretation of lab values Review and interpretation of microbiologic data and culture results Review of medications and administration Review and interpretation of Nutrition requirements and management Discussion of management with other consultants and services Clinical update to family members Diagnoses Non-ST elevation [place] (NSTEMI) I21.4 Hypertensive urgency I16.0 Acute on chronic systolic congestive heart failure I50.23 Heart failure chronicity: acute on chronic Heart failure type: systolic Small bowel obstruction K56.609 Leukocytosis D72.829 CKD (chronic kidney disease) N18.9 Chronic kidney disease stage: stage 3 (moderate) Coronary artery disease involving [place] coronary artery of [place] heart, angina presence unspecified I25.10 Coronary Disease-Associated Artery/Lesion type: [place] artery [place] vs. transplanted heart: [place] heart Associated angina: angina presence unspecified Type 2 diabetes mellitus without complication, without long-term current use of insulin E11.9 Diabetes mellitus retirement insulin use: without retirement use Diabetes mellitus complication status: without complication Morbid obesity E66.01 Goals of care, counseling/discussion Z71.89 Chest pain, unspecified type R07.9 Chest pain type: unspecified
[2024-09-13] MEDS: FUROsemide 10 mg/mL SDV 4mL 40 MG IVP (12:29)
[2024-09-13] MEDS: ipratropium 0.5 mg/2.5 mL Neb INHALATION ×2 (13:16→19:37)
[2024-09-13 14:58] LABS: Glucose Point of Care 124 mg/dL (70-110)
[2024-09-13] MEDS: cloNIDine 0.1 mg/24 hr Patch 1 PATCH TRANSDERMA (15:41)
[2024-09-13 17:35] LABS: Partial Thromboplastin Time 47.9 SECONDS (23.9-36.7)
[2024-09-13] MEDS: morphine 4 mg/mL SDV 1 mL 2 MG IVP (19:16)
[2024-09-13 20:09] LABS: Glucose Point of Care 143 mg/dL (70-110)
--- NOTE | 2024-09-13 20:19 | XRR_ITS ---
PROCEDURE INFORMATION: Exam: XR Abdomen Exam date and time: 09/13/2024 11:11 PM Age: 63 years old Clinical indication: Abdominal pain; Prior surgery; Surgery date: 6+ months; Surgery type: Gb, appy, hystero, bowel resection; Abdomen pain; Known sbo; Please correlate with CT from 09/13/23 TECHNIQUE: Imaging protocol: Radiologic exam of the abdomen. Views: Frontal supine view of the abdomen. 1 View. COMPARISON: [place] [id number] 09/12/2024 7:44 PM FINDINGS: Tubes, catheters and devices: NG tube with tip in stomach. Gastrointestinal tract: Mildly dilated small bowel loops in the left side of the abdomen suspicious for small bowel obstruction. Intraperitoneal space: Limited evaluation for free air. Bones/joints: Unremarkable. XR/XR KUB portable [id number] IMPRESSION: See above.
[2024-09-13] MEDS: HYDROMORPHONE HCL 0.5 MG/0.5 ML INJ 0.4 MG IVP ×2 (20:34→23:49)
[2024-09-13 21:00] LABS: Lactate (Lactic Acid level) 0.9 mmol/L (0.5-2.2)
[2024-09-14] VITALS (55 sets, daily range): BP systolic 105–212; BP diastolic 42–116; PULSE 74–100; RESP 11–24; TEMP 37–37.5; O2SAT 87–100
[2024-09-14 01:38] LABS: Partial Thromboplastin Time 46.7 SECONDS (23.9-36.7)
[2024-09-14 01:46] LABS: Glucose Point of Care 119 mg/dL (70-110)
[2024-09-14] MEDS: metoprolol tartrate 1 mg/1 mL SDV 5 mL 5 MG IVP ×5 (01:48→21:37)
[2024-09-14] MEDS: morphine 4 mg/mL SDV 1 mL 2 MG IVP ×3 (01:48→14:32)
[2024-09-14] MEDS: levalbuterol 0.63 mg/3 mL Neb INHALATION ×4 (02:26→19:30)
[2024-09-14] MEDS: ipratropium 0.5 mg/2.5 mL Neb INHALATION ×4 (02:26→19:30)
[2024-09-14] MEDS: heparin 5,000 unit/mL INJ 1 mL IVP ×2 (02:31→22:03)
[2024-09-14] MEDS: meropenem 1,000 mg SDV 1000 MG IVP ×3 (03:50→19:24)
[2024-09-14] MEDS: HYDROMORPHONE HCL 0.5 MG/0.5 ML INJ 0.4 MG IVP ×3 (03:51→21:37)
[2024-09-14] MEDS: nitroglycerin drip 50 MG/250 ML PREMIX 9 MG IV (04:10)
[2024-09-14 05:35] LABS: Glucose Point of Care 109 mg/dL (70-110)
[2024-09-14 06:11] LABS: Basophils % 0.4 %; Eosinophils # 0.7 10^3/uL (0.0-0.8); Eosinophils % 10.6 %; Hematocrit 29.1 % (36-47); Lymphocytes # 2.2 10^3/uL (0.8-4.8); Lymphocytes % 30.7 %; Mean Corpuscular HGB Conc 30.9 g/dL (30-55); Mean Corpuscular Hemoglobin 27.7 pg (27-33); Mean Corpuscular Volume 89.5 fl (85-98); Mean Platelet Volume 9.6 fL (7.4-10.4); Monocytes # 0.8 10^3/uL (0.2-0.9); Monocytes % 11.1 %; Neutrophils # 3.29 10^3/uL (1.8-7.7); Neutrophils % 46.9 %; Nucleated Red Blood Cells % 0 %; Platelet Count 280 10^3/cmm (157-399); Red Blood Count 3.25 10^6/uL (3.85-5.65); Red Cell Distribution Width 15.9 % (12.1-15.1); White Blood Count 7.01 10^3/uL (3.29-11.43)
[2024-09-14 06:35] LABS: Alanine Aminotransferase 6 U/L (0-33); Albumin Level 2.8 g/dL (3.5-5.2); Alkaline Phosphatase 76 U/L (35-105); Anion Gap 17.4 (5-19); Aspartate Amino Transferase 9 U/L (0-32); Blood Urea Nitrogen 38 mg/dL (8-23); Calcium 8.6 mg/dL (8.5-10.5); Carbon Dioxide 27 mmol/L (22-29); Chloride 103 mmol/L (98-107); Glomerular Filtration Rate 35.3 mL/min (90-130); Glucose 119 mg/dL (65-115); Magnesium 1.9 mg/dL (1.7-2.3); Osmolality Calculated 308 mOsm/kg (285-295); Phosphorus 3.3 mg/dL (2.5-4.5); Potassium 3.4 mmol/L (3.5-5.1); Sodium 144 mmol/L (136-145); Total Bilirubin 0.5 mg/dL (0.15-1.2); Total Protein 5.8 g/dL (6.6-8.7)
[2024-09-14] MEDS: ticagrelor 90 mg Tablet PO ×2 (08:13→21:34)
[2024-09-14] MEDS: buPROPion SR (12 HR) 100 mg Tablet 200 MG PO ×2 (08:13→17:09)
--- NOTE | 2024-09-14 09:10 | P.PN_ITS ---
Subjective 2 Subjective: Complains of some lower chest pain. No Bowel Movements in the Last 24 Hours. Vital Signs Have Remained Stable. NG Output Has Been High Almost 2.7 L over the Last 24 Hours. Vitals/I&O/Wt Last Vital Signs Temp 99.5 F 09/14/24 05:48 Pulse 88 09/14/24 09:00 Resp 18 09/14/24 08:52 BP 163/82 09/14/24 04:30 Pulse Ox 95 09/14/24 08:52 O2 Del Method Nasal Cannula 09/14/24 08:52 O2 Flow Rate 2 09/14/24 08:52 09/13/24 09/14/24 09/14/24 22:59 06:59 14:59 Intake Total 195.2 / 406.834 366.20 / 773.034 Output Total 1600 / 3000 1300 / 4300 Balance -1404.8 / -2593.166 -933.80 / -3526.966 Weight last 48 hrs Weight 264 lb 8.875 oz Weight 273 lb 5.971 oz Weight 284 lb 6.341 oz Weight 256 lb Weight 256 lb Physical Exam 2 GI: OTHER: Improvement in abdominal exam abdomen soft, nontender, minimally distended, at this moment I cannot hear bowel sounds. Digital rectal examination was done large amount of stool was disimpacted. Data 09/14/24 05:25 09/14/24 05:25 Micro: Microbiology 09/12/24 21:11 Blood Culture - Preliminary Blood NEGATIVE TO DATE 09/12/24 21:03 Blood Culture - Preliminary Blood NEGATIVE TO DATE A&P Assessment and plan (1) Morbid obesity: (2) Abdominal wall hernia: (3) Small bowel obstruction: Plan Patient showing adequate progression from the surgical standpoint. She will require additional decompression before we try a Gastrografin trial as the output from the NG tube was extremely high. Her abdominal exam is overall benign no evidence of peritonitis or any other signs concerning for bowel ischemia. Her white count has trended down. Lactate 0.9. I did review the CT scan done yesterday and realized that she had a large rectal impaction. I proceeded with disimpaction and removed large amount of stool from the rectal vault. Will continue current plan for today we will plan on possible gastrografin trial tomorrow morning. PDMP PDMP Reviewed: Not Reviewed Attestations 2 Medical Necessity Statement*: per medical team Coding Level of Care Code Acute Code for Chg Fwd Diagnoses Morbid obesity E66.01 Abdominal wall hernia K43.9 Small bowel obstruction K56.609
[2024-09-14 09:12] LABS: Glucose Point of Care 132 mg/dL (70-110)
[2024-09-14 09:14] LABS: Partial Thromboplastin Time 73.9 SECONDS (23.9-36.7)
--- NOTE | 2024-09-14 10:05 | PM.PN ---
Subjective Subjective: Has epigastric pain. Has SBO. Vitals/I&O/Wt Last Vital Signs Temp 99.5 F 09/14/24 05:48 Pulse 83 09/14/24 09:30 Resp 14 09/14/24 09:30 BP 167/60 09/14/24 09:30 Pulse Ox 98 09/14/24 09:30 O2 Del Method Nasal Cannula 09/14/24 08:52 O2 Flow Rate 2 09/14/24 08:52 09/13/24 09/14/24 09/14/24 22:59 06:59 14:59 Intake Total 195.2 / 406.834 366.20 / 773.034 Output Total 1600 / 3000 1300 / 4300 Balance -1404.8 / -2593.166 -933.80 / -3526.966 Weight last 48 hrs Weight 264 lb 8.875 oz Weight 273 lb 5.971 oz Weight 284 lb 6.341 oz Weight 256 lb Weight 256 lb Physical Exam Narrative: GENERAL: Patient is alert, awake and oriented x3. HEART: Regular S1 and S2. No murmur, rub or gallop. LUNGS: Diminished air entry bilaterally CENTRAL NERVOUS SYSTEM: Grossly nonfocal. EXTREMITIES: Lower extremities with 1+ edema Data 09/15/24 04:43 09/15/24 05:47 Micro: Microbiology 09/12/24 21:11 Blood Culture - Preliminary Blood NEGATIVE TO DATE 09/12/24 21:03 Blood Culture - Preliminary Blood NEGATIVE TO DATE A&P Assessment and plan (1) CAD (coronary artery disease): Qualifiers: Coronary Disease-Associated Artery/Lesion type: [place] artery [place] vs. transplanted heart: seminole heart Associated angina: angina presence unspecified Qualified Code(s): I25.10 - Atherosclerotic heart disease of [place] coronary artery without angina pectoris (2) Chest pain: Qualifiers: Chest pain type: unspecified Qualified Code(s): R07.9 - Chest pain, unspecified (3) Elevated troponin: (4) CHF (congestive heart failure): Qualifiers: Heart failure chronicity: acute on chronic Heart failure type: systolic Qualified Code(s): I50.23 - Acute on chronic systolic (congestive) heart failure (5) Hypertensive urgency: Plan Patient has NG tube. Has bowel obstruction. Continue Brilinta and aspirin as had a recent stent. Minimal troponin uptrend. At this time we will medically manage coronary artery disease given her presentation and bowel obstruction. If symptoms worsen with evidence of EKG changes or significant elevation of troponin, can change plan. Thank you for involving us with care of this patient.We will continue to follow. Please call with questions. PDMP PDMP Reviewed: Not Reviewed Attestations Medical Necessity Statement*: Care expected to cross 2 midnights. Coding Level of Care Code Acute Code for g Fwd Diagnoses Coronary artery disease involving seminole coronary artery of seminole heart, angina presence unspecified I25.10 Coronary Disease-Associated Artery/Lesion type: [place] artery [place] vs. transplanted heart: seminole heart Associated angina: angina presence unspecified Chest pain, unspecified type R07.9 Chest pain type: unspecified Elevated troponin R77.8 Acute on chronic systolic congestive heart failure I50.23 Heart failure chronicity: acute on chronic Heart failure type: systolic Hypertensive urgency I16.0
[2024-09-14] MEDS: cloNIDine 0.3 mg/24 hr Patch 1 PATCH TRANSDERMA (10:22)
[2024-09-14 14:43] LABS: Partial Thromboplastin Time 77.5 SECONDS (23.9-36.7)
--- NOTE | 2024-09-14 14:48 | PC.NURSE ---
dosing weight on heparin drip shows 131 kg, rounded weight on flowsheet 120 kg since drip was started, patient weight is 120 kg. 120 kg kept as rounding weigh to maintain therapeutic level. Dr. Szymanski notified
[2024-09-14 15:45] LABS: Glucose Point of Care 135 mg/dL (70-110)
--- NOTE | 2024-09-14 16:29 | P.PN_ITS ---
Subjective 2 Subjective: No acute events overnight. Patient denies any nausea or vomiting. NG tube in place. Continues to complain of epigastric and retrosternal pain and heaviness. States abdominal pain is improving. Continues to remain on nitro and heparin drip. Blood pressure is better controlled. Vitals/I&O/Wt Last Vital Signs Temp 99.5 F 09/14/24 05:48 Pulse 83 09/14/24 13:53 Resp 15 09/14/24 14:32 BP 139/69 09/14/24 12:00 Pulse Ox 96 09/14/24 14:32 O2 Del Method Nasal Cannula 09/14/24 13:44 O2 Flow Rate 2 09/14/24 13:44 09/14/24 09/14/24 09/14/24 06:59 14:59 22:59 Intake Total 366.20 / 773.034 251.183 / 251.183 Output Total 1300 / 4300 Balance -933.80 / -3526.966 251.183 / 251.183 Weight last 48 hrs Weight 120 kg Weight 124 kg Weight 129 kg Weight 116.12 kg Physical Exam 2 Narrative: General: No acute distress, AO x3, chronically sick appearing, morbidly obese on 2 L of nasal cannula, NG tube in place HEENT: PERRLA, pupils bilaterally equal and reactive Chest: Bilateral bronchial breath sounds over lung [place], decreased air entry bilaterally in lower zone, fine crackles present up to mid lungs CVS: S1-S2 regular, no murmurs, no tachycardia, no gallops, no rubs Abdomen: Soft, nontender, no organomegaly, bowel sounds sluggish Neuro: No focal deficits, no facial deformity, AO x3, power 5/5 in all limbs Extremity: 2+ pitting edema up to mid thigh bilaterally Data 09/14/24 05:25 09/14/24 05:25 Micro: Microbiology 09/13/24 01:28 Urine Culture - Preliminary Urine,Clean Catch 09/12/24 21:11 Blood Culture - Preliminary Blood NEGATIVE TO DATE 09/12/24 21:03 Blood Culture - Preliminary Blood NEGATIVE TO DATE A&P Assessment and plan (1) Small bowel obstruction: Appreciated on CT abdomen pelvis. Appreciate surgical recommendations Conservative treatment with decompression with NG tube for now. Medicines changed to IV or rectal as needed. Protonix daily, Zofran as needed. NG tube management as per surgical team. Possible Gastrografin study in morning. (2) Non-ST elevation [place] (NSTEMI): History of CAD with recent in-stent restenosis to mid RCA and LCx. Coming in with chest pain and difficulty in breathing. Baseline troponin elevated. Cardiology recommendations. Given concern for small bowel obstruction for now plan will be to continue with medical management until patient starts having active further chest pain or changes in echocardiogram. Echocardiogram, poor echo window. Grossly LV systolic function appears moderately reduced. Continue with heparin drip. Continue for overall 3 days. Continue with rectal aspirin, oral Brilinta. IV metoprolol 5 mg every 4 hours. Hold off for heart rate is less than 80 bpm. Appreciate A1c, lipid panel. ACS workup depending on improvement from small bowel obstruction. (3) Hypertensive urgency: Goal blood pressure less than 140/90 mmHg with mean over 65. Continue with nitro drip. Also will help with chest pain in setting of non-ST elevation [place]. Blood pressure is better controlled. Continue with IV metoprolol. Change to clonidine 0.3 mg patch. IV hydralazine 10 mg every 4 hours as needed for systolic blood pressure more than 160 mmHg. (4) CHF (congestive heart failure): Acute on chronic systolic heart failure. Last echocardiogram from April 2024 shows an EF of 40% with grade 1 diastolic dysfunction, mild LVH, moderate MR. Echocardiogram as above. Fluid restriction to less than 1500 cc. Patient is euvolemic. Hold off on further Lasix for now. Overall for now around 4.8 L negative Strict input output charting, daily weights. Qualifiers: Heart failure chronicity: acute on chronic Heart failure type: systolic Qualified Code(s): I50.23 - Acute on chronic systolic (congestive) heart failure (5) Leukocytosis: Recent admission for bacterial pneumonia in July. Apreciate urinalysis. X-ray negative for consolidation for now. Could be in setting of SBO. Appreciate urine culture from past. Does have history of Enterococcus VRE UTI in the past. Most recently with pansensitive E. coli. Follow-up blood culture, urine culture. Leukocytosis had resolved. For now continue with IV antibiotics for overall 5- day course. Follow-up culture. (6) CKD (chronic kidney disease): Baseline creatinine of 1.3-1.6. As high as 1.9 in last 1 year. Creatinine stable at 1.5. BUN improving. Strict input output charting, daily weights. Continue to monitor BMP daily. Developed hypokalemia today. Replace with 40 mEq of IV potassium. Qualifiers: Chronic kidney disease stage: stage 3 (moderate) (7) CAD (coronary artery disease): Qualifiers: Coronary Disease-Associated Artery/Lesion type: [place] artery [place] vs. transplanted heart: [place] heart Associated angina: angina presence unspecified Qualified Code(s): I25.10 - Atherosclerotic heart disease of [place] coronary artery without angina pectoris (8) DM type 2 (diabetes mellitus, type 2): Continue with home dose of Lantus. Sliding scale at high dose protocol. A1c 7.6. Qualifiers: Diabetes mellitus assisted insulin use: without business technology analyst use Diabetes mellitus complication status: without complication Qualified Code(s): E11.9 - Type 2 diabetes mellitus without complications (9) Morbid obesity: (10) Goals of care, counseling/discussion: (11) Chest pain: Qualifiers: Chest pain type: unspecified Qualified Code(s): R07.9 - Chest pain, unspecified (12) Fecal impaction in rectum: Seen on CT abdomen/pelvis. Disimpacted by surgical team. Plan CODE STATUS: Discussed in detail with the patient. Sister and nephew will be the DPOA. Patient does not want any resuscitation. DNR/DNI. N.p.o. Heparin drip will be sufficient for DVT prophylaxis Protonix for PUD prophylaxis. PDMP PDMP Reviewed: Not Reviewed Attestations 2 Medical Necessity Statement*: Requires further hospitalization for management of small bowel obstruction, fecal impaction as patient remains on conservative treatment, non-ST elevation [place] on heparin drip, hypertensive urgency on nitro drip Critical Care Time: The high probability of a clinically significant, sudden or life threatening deterioration of the patient's [cardiac, GI, renal] system(s) required my full and direct attention, intervention and personal management. The critical care time is as shown. This time is in addition to time spent performing any reported procedures but includes the following: [x] Data and vital sign review and interpretation [x] Patient assessment, examination and intervention [x] Documentation [x] Medication orders and management Critical Care Time (min): 70 Coding Level of Care Code Critical Care >/= 30 minutes Critical care time (in minutes): 70 The high probability of a clinically significant, sudden or life threatening deterioration, as referenced in this documentation, required my full and direct attention, intervention and personal management. The critical care time shown is in addition to time spent performing any reported separately billable procedures and includes the following: [x] Data and vital sign review and interpretation [x ] Patient assessment, examination and intervention [x] Medication orders and management [x] Patient/Family updates as able [x] Care Coordination and Documentation. Other Coding Information This patient has a high probability of clinically significant, sudden or life threatening deterioration of the patient's (neurological/pulmonary/cardiac/renal/ID/endocrine) systems required my full, direct attention, the highest level of physician preparedness for urgent intervention and personal management. I managed/supervised life or organ supporting interventions that required frequent physician assessment. I devoted my full attention in the ICU to the direct care of this patient for the period of time indicated above. Time I spent with family or surrogate(s) is included only if the patient was incapable of providing necessary information or participating in decision making. This time includes the following services provided: Telemetry review Hemodynamic interpretation, assessment and management Review and interpretation of CXR Review and interpretation of lab values Review and interpretation of microbiologic data and culture results Review of medications and administration Review and interpretation of Nutrition requirements and management Discussion of management with other consultants and services Clinical update to family members Diagnoses Small bowel obstruction K56.609 Non-ST elevation [place] (NSTEMI) I21.4 Hypertensive urgency I16.0 Acute on chronic systolic congestive heart failure I50.23 Heart failure chronicity: acute on chronic Heart failure type: systolic Leukocytosis D72.829 CKD (chronic kidney disease) N18.9 Chronic kidney disease stage: stage 3 (moderate) Coronary artery disease involving [place] coronary artery of [place] heart, angina presence unspecified I25.10 Coronary Disease-Associated Artery/Lesion type: [place] artery [place] vs. transplanted heart: [place] heart Associated angina: angina presence unspecified Type 2 diabetes mellitus without complication, without long-term current use of insulin E11.9 Diabetes mellitus business technology analyst insulin use: without business technology analyst use Diabetes mellitus complication status: without complication Morbid obesity E66.01 Goals of care, counseling/discussion Z71.89 Chest pain, unspecified type R07.9 Chest pain type: unspecified Fecal impaction in rectum K56.41
[2024-09-14] MEDS: lidocaine 1% 5 ML in potassium chloride premix 100 ML 26.25 ML IV (17:08)
[2024-09-14] MEDS: heparin drip 25,000 UNIT/500 ML PREMIX 25 UNIT IV (19:01)
[2024-09-14] MEDS: nitroglycerin drip 50 MG/250 ML PREMIX 55 MG IV (19:04)
[2024-09-14 21:28] LABS: Glucose Point of Care 126 mg/dL (70-110)
[2024-09-14] MEDS: acetaminophen 325 mg Tablet 650 MG PO (21:34)
[2024-09-14] MEDS: ALPRAZolam 0.5 mg Tablet PO (21:34)
[2024-09-14 21:43] LABS: Partial Thromboplastin Time 53.1 SECONDS (23.9-36.7)
[2024-09-15] VITALS (41 sets, daily range): BP systolic 95–175; BP diastolic 43–126; PULSE 68–88; RESP 12–31; TEMP 36.4–36.7; O2SAT 90–100
[2024-09-15] MEDS: ipratropium 0.5 mg/2.5 mL Neb INHALATION ×4 (03:29→19:12)
[2024-09-15] MEDS: levalbuterol 0.63 mg/3 mL Neb INHALATION ×4 (03:29→19:12)
[2024-09-15] MEDS: meropenem 1,000 mg SDV 1000 MG IVP ×3 (03:32→20:16)
[2024-09-15 03:33] LABS: Glucose Point of Care 116 mg/dL (70-110)
[2024-09-15 05:04] LABS: Basophils % 0.5 %; Eosinophils % 15.9 %; Hematocrit 28.4 % (36-47); Lymphocytes % 31.7 %; Mean Corpuscular HGB Conc 29.6 g/dL (30-55); Mean Corpuscular Hemoglobin 27.5 pg (27-33); Mean Corpuscular Volume 93.1 fl (85-98); Mean Platelet Volume 9.7 fL (7.4-10.4); Monocytes # 0.7 10^3/uL (0.2-0.9); Monocytes % 10.2 %; Neutrophils # 2.63 10^3/uL (1.8-7.7); Neutrophils % 41.4 %; Nucleated Red Blood Cells % 0 %; Platelet Count 212 10^3/cmm (157-399); Red Blood Count 3.05 10^6/uL (3.85-5.65); Red Cell Distribution Width 15.7 % (12.1-15.1); White Blood Count 6.35 10^3/uL (3.29-11.43)
[2024-09-15 05:16] LABS: Partial Thromboplastin Time 54.1 SECONDS (23.9-36.7)
[2024-09-15] MEDS: heparin 5,000 unit/mL INJ 1 mL IVP (05:26)
[2024-09-15 06:21] LABS: Alanine Aminotransferase 6 U/L (0-33); Albumin Level 2.8 g/dL (3.5-5.2); Alkaline Phosphatase 67 U/L (35-105); Anion Gap 13.6 (5-19); Aspartate Amino Transferase 7 U/L (0-32); Blood Urea Nitrogen 37 mg/dL (8-23); Calcium 8.6 mg/dL (8.5-10.5); Carbon Dioxide 29 mmol/L (22-29); Chloride 104 mmol/L (98-107); Globulin 2.8 g/dL (1.3-4.6); Glomerular Filtration Rate 38.2 mL/min (90-130); Glucose 120 mg/dL (65-115); Osmolality Calculated 306 mOsm/kg (285-295); Phosphorus 3.6 mg/dL (2.5-4.5); Potassium 3.6 mmol/L (3.5-5.1); Sodium 143 mmol/L (136-145); Total Bilirubin 0.4 mg/dL (0.15-1.2); Total Protein 5.6 g/dL (6.6-8.7)
[2024-09-15] MEDS: ticagrelor 90 mg Tablet PO (06:38)
--- NOTE | 2024-09-15 08:34 | XRR_ITS ---
PROCEDURE INFORMATION: Exam: XR Chest Exam date and time: 09/15/2024 8:42 AM Age: 63 years old Clinical indication: Device placement; Ng tube; Additional info: Ng placement TECHNIQUE: Imaging protocol: Radiologic exam of the chest. Views: 1 view. COMPARISON: CR (CHEST, ) 09/12/2024 10:32 PM FINDINGS: Tubes, catheters and devices: A nasogastric tube is present in satisfactory position projecting in the stomach. Lungs: Stable patchy basilar atelectasis. Pleural spaces: Unremarkable. No pleural effusion. No pneumothorax. Heart/Mediastinum: Unremarkable. No cardiomegaly. Bones/joints: Unremarkable. XR/XR chest 1V portable [id number] IMPRESSION: 1. The nasogastric tube projects on the stomach. 2. Stable patchy basilar atelectasis.
--- NOTE | 2024-09-15 08:43 | P.PN_ITS ---
Subjective 2 Subjective: Patient not feeling well. Has abdominal pain. On my discussion with her denied chest pain but has epigastric discomfort. Vitals/I&O/Wt Last Vital Signs Temp 97.6 F 09/15/24 06:30 Pulse 69 09/15/24 08:21 Resp 16 09/15/24 08:13 BP 117/46 09/15/24 06:30 Pulse Ox 97 09/15/24 08:13 O2 Del Method Nasal Cannula 09/15/24 08:13 O2 Flow Rate 2 09/15/24 08:13 09/14/24 09/15/24 09/15/24 22:59 07:59 14:59 Intake Total 228.900 / 581.583 215.825 / 797.408 Output Total 475 / 475 150 / 625 Balance -246.100 / 106.583 65.825 / 172.408 Weight last 48 hrs Weight 291 lb 0.163 oz Weight 291 lb 0.163 oz Weight 264 lb 8.875 oz Weight 273 lb 5.971 oz Physical Exam 2 Narrative: GENERAL: Patient is alert, awake and oriented x3. HEART: Regular S1 and S2. No murmur, rub or gallop. LUNGS: Diminished air entry bilaterally CENTRAL NERVOUS SYSTEM: Grossly nonfocal. EXTREMITIES: Lower extremities with 1+ edema Data 09/16/24 03:33 09/16/24 03:33 Micro: Microbiology 09/13/24 01:28 Urine Culture - Preliminary Urine,Clean Catch A&P Assessment and plan (1) CAD (coronary artery disease): Qualifiers: Coronary Disease-Associated Artery/Lesion type: [place] artery [place] vs. transplanted heart: [place] heart Associated angina: angina presence unspecified Qualified Code(s): I25.10 - Atherosclerotic heart disease of [place] coronary artery without angina pectoris (2) Chest pain: Qualifiers: Chest pain type: unspecified Qualified Code(s): R07.9 - Chest pain, unspecified (3) Elevated troponin: (4) CHF (congestive heart failure): Qualifiers: Heart failure chronicity: acute on chronic Heart failure type: systolic Qualified Code(s): I50.23 - Acute on chronic systolic (congestive) heart failure (5) Hypertensive urgency: Plan Patient needs surgical intervention for bowel obstruction. Surgery team requested to stop Brilinta. Last stent about 4 months back. Continue rectal aspirin. Continue heparin drip till before the surgery. Discussed with patient and understands risk of stent thrombosis. Patient symptoms are mostly abdominal discomfort with epigastric pain. Troponins are elevated but it is her baseline. On all her prior admission troponins have stayed in this range. EKG is not showing ischemic changes. With her prior CAD history with multiple stents and LV dysfunction along with other comorbidities, she has high cardiovascular risk however is not prohibitive. Given no active ND, troponin elevation but at her baseline, and ongoing bowel obstruction, no further cardiac intervention right now. Thank you for involving us with care of this patient.We will continue to follow. Please call with questions. PDMP PDMP Reviewed: Not Reviewed Attestations 2 Medical Necessity Statement*: Care expected to cross 2 midnights. Coding Level of Care Code Acute Code for [facility] Fwd Diagnoses Coronary artery disease involving [place] coronary artery of [place] heart, angina presence unspecified I25.10 Coronary Disease-Associated Artery/Lesion type: [place] artery [place] vs. transplanted heart: [place] heart Associated angina: angina presence unspecified Chest pain, unspecified type R07.9 Chest pain type: unspecified Elevated troponin R77.8 Acute on chronic systolic congestive heart failure I50.23 Heart failure chronicity: acute on chronic Heart failure type: systolic Hypertensive urgency I16.0
[2024-09-15 08:48] LABS: Glucose Point of Care 123 mg/dL (70-110)
[2024-09-15] MEDS: aspirin 300 mg Supp PR (08:57)
--- NOTE | 2024-09-15 09:02 | ECG_ITS ---
[facility] Test Date: 2024-09-15 Pat Name: Watson Bridges Department: Room: [facility] Gender: Female Remote Sensing Specialist: : [id number] Requested By: Jaiden Newell Order Number: [id number] Reading MD: JYOTI CROCKETT Measurements Intervals [place] Rate: 74 P: 47 ID: [id number] QRS: 42 QRSD: 110 T: 71 QT: 415 QTc: 461 Interpretive Statements SINUS RHYTHM Compared to ECG 09/12/2024 19:01:55 T-wave abnormality no longer present Electronically Signed On 09-16-2024 22:32:09 CDT by JYOTI CROCKETT [email or web address]
[2024-09-15] MEDS: morphine 4 mg/mL SDV 1 mL 2 MG IVP ×2 (09:03→20:16)
[2024-09-15] MEDS: buPROPion SR (12 HR) 100 mg Tablet 200 MG PO (09:07)
[2024-09-15] MEDS: ALPRAZolam 0.5 mg Tablet PO (09:07)
--- NOTE | 2024-09-15 09:36 | P.PN_ITS ---
Subjective 2 Subjective: Patient showed good progression overnight, vitals have been stable her abdominal pain has improved denies having passed any gas or having bowel movements but she is overall feeling better. NG output was minimal overnight but NG tube was noted to be mispositioned after advancement he produced about 100 cc of bilious material.She is hungry Vitals/I&O/Wt Last Vital Signs Temp 97.6 F 09/15/24 06:30 Pulse 69 09/15/24 08:21 Resp 14 09/15/24 09:03 BP 117/46 09/15/24 06:30 Pulse Ox 98 09/15/24 09:03 O2 Del Method Nasal Cannula 09/15/24 08:13 O2 Flow Rate 2 09/15/24 08:13 09/14/24 09/15/24 09/15/24 22:59 07:59 14:59 Intake Total 228.900 / 581.583 215.825 / 797.408 Output Total 475 / 475 150 / 625 Balance -246.100 / 106.583 65.825 / 172.408 Weight last 48 hrs Weight 291 lb 0.163 oz Weight 291 lb 0.163 oz Weight 264 lb 8.875 oz Weight 273 lb 5.971 oz Physical Exam 2 GI: OTHER: Benign abdominal exam, much improved distention soft and nontender hypoactive bowel sounds Data 09/15/24 04:43 09/15/24 05:47 Micro: Microbiology 09/13/24 01:28 Urine Culture - Preliminary Urine,Clean Catch A&P Assessment and plan (1) Fecal impaction in rectum: (2) Small bowel obstruction: Plan Patient appears to be clinically improving, we will do a Gastrografin trial today. Gastrografin was administered around 8:45 AM and first x-ray will be around 1:30 PM. NG tube will remain clamped during this time. Depending on results of Gastrografin trial we may decide on discontinuing due to allowing the patient to eat. PDMP PDMP Reviewed: Not Reviewed Attestations 2 Medical Necessity Statement*: Per medical team Coding Level of Care Code Acute Code for Chg Fwd Diagnoses Fecal impaction in rectum K56.41 Small bowel obstruction K56.609
[2024-09-15] MEDS: metoprolol tartrate 1 mg/1 mL SDV 5 mL 5 MG IVP ×4 (10:15→20:16)
[2024-09-15 11:18] LABS: Glucose Point of Care 126 mg/dL (70-110)
--- NOTE | 2024-09-15 12:07 | XRR_ITS ---
PROCEDURE INFORMATION: Exam: XR Abdomen Exam date and time: 09/15/2024 11:33 AM Age: 63 years old Clinical indication: Abdominal tenderness and bloating; Prior surgery; Surgery date: 6+ months; Surgery type: Gb, appy, coronary stents, hyst, lumbar lami, bowel resection; Sbo; Gastrograffin trial 4-hr film; 240ml gastrograffin via ng by Dr. Rome @ approx 0830 TECHNIQUE: Imaging protocol: Radiologic exam of the abdomen. Views: Frontal supine view of the abdomen. 1 View. COMPARISON: CR (ABDOMEN, ) 09/13/2024 11:11 PM FINDINGS: Tubes, catheters and devices: A nasogastric tube projects on the stomach. Gastrointestinal tract: Contrast material is present in the stomach and multiple dilated loops of small bowel. Small bowel is dilated up to a diameter of 5 cm. The findings are consistent with a distal small bowel obstruction. Bones/joints: Unremarkable. XR/XR KUB portable [id number] IMPRESSION: Contrast material is present in the stomach and dilated proximal and mid small bowel consistent with distal small bowel obstruction.
--- NOTE | 2024-09-15 13:59 | PM.PN ---
Subjective Subjective: No acute vents overnight. Patient continues to have epigastric and retrosternal heaviness. Not having bowel movements or passing flatus. Less output through the NG tube. Hemodynamically stable. Blood pressure is better controlled today, nitro drip discontinued overnight. Vitals/I&O/Wt Last Vital Signs Temp 98.1 F 09/15/24 13:00 Pulse 88 09/15/24 13:18 Resp 16 09/15/24 13:10 BP 136/83 09/15/24 13:00 Pulse Ox 96 09/15/24 13:10 O2 Del Method Nasal Cannula 09/15/24 13:10 O2 Flow Rate 1 09/15/24 13:10 09/14/24 09/15/24 09/15/24 22:59 07:59 14:59 Intake Total 228.900 / 581.583 215.825 / 797.408 0 / 0 Output Total 475 / 475 150 / 625 Balance -246.100 / 106.583 65.825 / 172.408 0 / 0 Weight last 48 hrs Weight 132 kg Weight 132 kg Weight 120 kg Weight 124 kg Physical Exam Narrative: General: No acute distress, AO x3, chronically sick appearing, morbidly obese on 2 L of nasal cannula, NG tube in place HEENT: PERRLA, pupils bilaterally equal and reactive Chest: Bilateral bronchial breath sounds over lung [place], decreased air entry bilaterally in lower zone, fine crackles present up to mid lungs CVS: S1-S2 regular, no murmurs, no tachycardia, no gallops, no rubs Abdomen: Soft, nontender, no organomegaly, bowel sounds sluggish Neuro: No focal deficits, no facial deformity, AO x3, power 5/5 in all limbs Extremity: 2+ pitting edema up to mid thigh bilaterally Data 09/15/24 04:43 09/15/24 05:47 Micro: Microbiology 09/13/24 01:28 Urine Culture - Final Urine,Clean Catch A&P Assessment and plan (1) Small bowel obstruction: Appreciated on CT abdomen pelvis. Appreciate surgical recommendations Conservative treatment with decompression with NG tube for now. Medicines changed to IV or rectal as needed. Protonix daily, Zofran as needed. NG tube management as per surgical team. Possible Gastrografin study in morning. (2) Non-ST elevation MS (NSTEMI): History of CAD with recent in-stent restenosis to mid RCA and LCx. Coming in with chest pain and difficulty in breathing. Baseline troponin elevated. Cardiology recommendations. Given concern for small bowel obstruction for now plan will be to continue with medical management until patient starts having active further chest pain or changes in echocardiogram. Echocardiogram, poor echo window. Grossly LV systolic function appears moderately reduced. Continue with heparin drip. Continue for overall 3 days. Continue with rectal aspirin, oral Brilinta. IV metoprolol 5 mg every 4 hours. Hold off for heart rate is less than 80 bpm. Appreciate A1c, lipid panel. ACS workup depending on improvement from small bowel obstruction. (3) Hypertensive urgency: Goal blood pressure less than 140/90 mmHg with mean over 65. Continue with nitro drip. Also will help with chest pain in setting of non-ST elevation MS. Blood pressure is better controlled. Continue with IV metoprolol. Change to clonidine 0.3 mg patch. IV hydralazine 10 mg every 4 hours as needed for systolic blood pressure more than 160 mmHg. (4) CHF (congestive heart failure): Acute on chronic systolic heart failure. Last echocardiogram from April 2024 shows an EF of 40% with grade 1 diastolic dysfunction, mild LVH, moderate MR. Echocardiogram as above. Fluid restriction to less than 1500 cc. Patient is euvolemic. Hold off on further Lasix for now. Overall for now around 4.8 L negative Strict input output charting, daily weights. Qualifiers: Heart failure chronicity: acute on chronic Heart failure type: systolic Qualified Code(s): I50.23 - Acute on chronic systolic (congestive) heart failure (5) Leukocytosis: Recent admission for bacterial pneumonia in July. Apreciate urinalysis. X-ray negative for consolidation for now. Could be in setting of SBO. Appreciate urine culture from past. Does have history of Enterococcus VRE UTI in the past. Most recently with pansensitive E. coli. Follow-up blood culture, urine culture. Leukocytosis had resolved. For now continue with IV antibiotics for overall 5-day course. Follow-up culture. (6) CKD (chronic kidney disease): Baseline creatinine of 1.3-1.6. As high as 1.9 in last 1 year. Creatinine stable at 1.5. BUN improving. Strict input output charting, daily weights. Continue to monitor BMP daily. Developed hypokalemia today. Replace with 40 mEq of IV potassium. Qualifiers: Chronic kidney disease stage: stage 3 (moderate) (7) CAD (coronary artery disease): Qualifiers: Coronary Disease-Associated Artery/Lesion type: [place] artery [place] vs. transplanted heart: [place] heart Associated angina: angina presence unspecified Qualified Code(s): I25.10 - Atherosclerotic heart disease of [place] coronary artery without angina pectoris (8) DM type 2 (diabetes mellitus, type 2): Continue with home dose of Lantus. Sliding scale at high dose protocol. A1c 7.6. Qualifiers: Diabetes mellitus intermediate teacher insulin use: without correction use Diabetes mellitus complication status: without complication Qualified Code(s): E11.9 - Type 2 diabetes mellitus without complications (9) Morbid obesity: (10) Goals of care, counseling/discussion: (11) Chest pain: Qualifiers: Chest pain type: unspecified Qualified Code(s): R07.9 - Chest pain, unspecified (12) Fecal impaction in rectum: Seen on CT abdomen/pelvis. Disimpacted by surgical team. Plan CODE STATUS: Discussed in detail with the patient. Sister and nephew will be the DPOA. Patient does not want any resuscitation. DNR/DNI. N.p.o. Heparin drip will be sufficient for DVT prophylaxis Protonix for PUD prophylaxis. Plan for the day: Gastrografin study as per surgical team. NG tube management as per surgical team. Patient has had 72 hours of heparin drip. Will discontinue and switch to prophylactic dose. Blood pressure less than 140/90 mmHg. Blood pressure is well-controlled. Discontinue nitro drip. Continue with clonidine patch and IV metoprolol every 4 hours. Hold metoprolol for heart rate of less than 90, blood pressure of less than 100 mmHg. Continue with rectal aspirin, Brilinta oral. Transfer to CCU. Patient euvolemic. Hold off on Lasix today. Monitor renal functions daily. Blood sugars well-controlled. PDMP PDMP Reviewed: Not Reviewed Attestations Medical Necessity Statement*: Requires further hospitalization for management of small bowel obstruction undergoing conservative treatment, non-ST elevation MS in a patient with recent history of in-stent restenosis Diagnoses Small bowel obstruction K56.609 Non-ST elevation MS (NSTEMI) I21.4 Hypertensive urgency I16.0 Acute on chronic systolic congestive heart failure I50.23 Heart failure chronicity: acute on chronic Heart failure type: systolic Leukocytosis D72.829 CKD (chronic kidney disease) N18.9 Chronic kidney disease stage: stage 3 (moderate) Coronary artery disease involving [place] coronary artery of [place] heart, angina presence unspecified I25.10 Coronary Disease-Associated Artery/Lesion type: [place] artery [place] vs. transplanted heart: [place] heart Associated angina: angina presence unspecified Type 2 diabetes mellitus without complication, without long-term current use of insulin E11.9 Diabetes mellitus intermediate teacher insulin use: without intermediate teacher use Diabetes mellitus complication status: without complication Morbid obesity E66.01 Goals of care, counseling/discussion Z71.89 Chest pain, unspecified type R07.9 Chest pain type: unspecified Fecal impaction in rectum K56.41
--- NOTE | 2024-09-15 14:38 | PM.MISC ---
Miscellaneous Note Purpose of Documentation: Update on patient care Note: I evaluated the patient this afternoon. At 4 hours from Gastrografin administration, there is no progression of the Gastrografin into the distal small bowel. Gastrografin appears to remain in the stomach and proximal dilated bowel. This raises the concern for possible failure of the Gastrografin trial that may indicate the need for surgery. I evaluated patient at the bedside, she is doing okay, abdominal exam remains benign, bowel sounds remain very minimal to absent abdominal tenderness is minimal, she does have a large ventral hernia but I am able to press on the hernia and does not appear to be very tender. I had a discussion with the patient regarding the possibility of surgery. I have informed her that she is a very high risk candidate for any kind of surgical intervention due to extensive cardiac history, morbid obesity, multiple comorbidities and extensive history of multiple intra-abdominal surgeries. I have informed her that she is at risk of both intraoperative and postoperative due to complications. I had extensive discussion with Dr. Szymanski , we will also discussed with cardiology for attempted optimization and pre-operative risk assesment. The plan will be that in the case of failure of the Gastrografin trial to attempt to stop Brilinta for the next 2 to 3 days while we keep the patient decompressed with an NG tube and NPO and at that point going forward with surgery. Patient will like to discuss possibility of surgery with family members as well as clergy before taking a decision to proceed. We will have a more extensive discussion if by tomorrow we decided the patient does require to proceed to the OR. Next x-ray will be around 6 to 8 PM to evaluate for possible progression and from there we will obtain another x-ray tomorrow morning. I have encouraged the patient to get out of bed to chair. At baseline she does not get out of bed without assistance and usually uses a motorized scooter for movement.
--- NOTE | 2024-09-15 14:57 | PC.NURSE ---
Addendum entered by Gissel Pike RN 09/15/24 15:17: Per provider heparin drip is restarted with no bolus and SQ heparing 5000 is discontinued. Original Note: provider asked nursing to restart heparin drip at the last dose that was running. The last dose that was running was 29 mls/hr.
[2024-09-15] MEDS: heparin drip 25,000 UNIT/500 ML PREMIX 76.56 UNIT IV (15:08)
[2024-09-15 16:36] LABS: Glucose Point of Care 130 mg/dL (70-110)
[2024-09-15 20:13] LABS: Glucose Point of Care 140 mg/dL (70-110)
--- NOTE | 2024-09-15 20:33 | P.MISC_ITS ---
Miscellaneous Note Purpose of Documentation: Update on patient care Note: Patient has failed Gastrografin trial. This afternoon she had a large amount of vomit and the NG tube was connected back to the suction removing about 1 L of bilious material. Her abdominal exam remains benign, her vital signs remained stable. I met with the patient at the bedside and had extensive discussion with her. I have informed her that at this point the only additional option that I can offer is proceed with a surgical intervention. This intervention will entail exploration of the abdomen, lysis of additions and possible repair of her ventral hernia. I have explained that she might require a bowel resection and anastomosis or an ostomy creation. I have also Splane to the patient that she is extremely high risk for morbidity and mortality both intraoperative and po stoperative due to her multiple medical comorbidities including morbid obesity, heart failure with low ejection fraction, acute coronary syndrome and history of stent occlusion. Due to the patient high risk profile after discussion with the medical team and cardiology we have decided to stop the Brilinta today and plan for surgical intervention on Monday. Were doing this as present to the OR immediately with the patient in coagulopathy due to anticoagulation with most likely result on deat in the case of patient clinical decompensation includingh. Worsening of the vital Delia white count or abdominal examination we will be pushed to proceed to the OR immediately taking consideration of high risk of mortality. Over the next 24 to 48 hours we will attempt to optimize patient as best as possible to withstand the OR.
[2024-09-15 21:29] LABS: Partial Thromboplastin Time 58.9 SECONDS (23.9-36.7)
--- NOTE | 2024-09-15 21:41 | PC.NURSE ---
Pump running at 29 mls/hr from day shift however for documentation [address] in wrong column. Verified with second nurse.
[2024-09-16] VITALS (12 sets, daily range): BP systolic 104–165; BP diastolic 40–89; PULSE 65–81; RESP 16–20; TEMP 35.8–36.7; O2SAT 94–99
[2024-09-16] MEDS: phenol oral Spray 177 mL 3 SPRAY MUCOUS MEM ×2 (00:13→03:56)
[2024-09-16] MEDS: lanolin oint 7 gm 1 APPLIC TOPICAL (00:15)
[2024-09-16] MEDS: morphine 4 mg/mL SDV 1 mL 2 MG IVP (00:15)
[2024-09-16] MEDS: metoprolol tartrate 1 mg/1 mL SDV 5 mL 5 MG IVP ×6 (01:08→21:43)
[2024-09-16] MEDS: levalbuterol 0.63 mg/3 mL Neb INHALATION ×4 (03:35→20:43)
[2024-09-16] MEDS: ipratropium 0.5 mg/2.5 mL Neb INHALATION ×4 (03:35→20:43)
[2024-09-16] MEDS: meropenem 1,000 mg SDV 1000 MG IVP ×3 (03:56→21:43)
[2024-09-16 04:32] LABS: Glucose Point of Care 112 mg/dL (70-110)
[2024-09-16 04:36] LABS: Basophils % 0.5 %; Eosinophils # 0.9 10^3/uL (0.0-0.8); Eosinophils % 11.7 %; Hematocrit 30.2 % (36-47); Lymphocytes # 2.1 10^3/uL (0.8-4.8); Lymphocytes % 26.7 %; Mean Corpuscular HGB Conc 30.5 g/dL (30-55); Mean Corpuscular Hemoglobin 27.2 pg (27-33); Mean Corpuscular Volume 89.3 fl (85-98); Mean Platelet Volume 9.9 fL (7.4-10.4); Monocytes # 0.7 10^3/uL (0.2-0.9); Monocytes % 9.3 %; Neutrophils # 3.99 10^3/uL (1.8-7.7); Neutrophils % 51.5 %; Nucleated Red Blood Cells % 0 %; Platelet Count 291 10^3/cmm (157-399); Red Blood Count 3.38 10^6/uL (3.85-5.65); Red Cell Distribution Width 15.2 % (12.1-15.1); White Blood Count 7.75 10^3/uL (3.29-11.43)
[2024-09-16 04:46] LABS: Partial Thromboplastin Time 67.6 SECONDS (23.9-36.7)
[2024-09-16 04:56] LABS: Alanine Aminotransferase 6 U/L (0-33); Alkaline Phosphatase 75 U/L (35-105); Anion Gap 16.7 (5-19); Aspartate Amino Transferase 8 U/L (0-32); Blood Urea Nitrogen 35 mg/dL (8-23); Calcium 9.1 mg/dL (8.5-10.5); Carbon Dioxide 30 mmol/L (22-29); Chloride 102 mmol/L (98-107); Globulin 3.1 g/dL (1.3-4.6); Glomerular Filtration Rate 38.2 mL/min (90-130); Glucose 117 mg/dL (65-115); Osmolality Calculated 309 mOsm/kg (285-295); Potassium 3.7 mmol/L (3.5-5.1); Sodium 145 mmol/L (136-145); Total Bilirubin 0.3 mg/dL (0.15-1.2); Total Protein 6.1 g/dL (6.6-8.7)
--- NOTE | 2024-09-16 06:33 | PC.NURSE ---
6525- Requesting chloraseptic spray for sore throat. Okay to order per Dr. Ramírez. 0222- Patient woke up tearful and upset saying my heart is broke, my family doesn't love me. Patient reassure, she is anxious about her current situation. She has brought up wanting to stop everything and give me ice chips and water. Requesting IV anxiety medication as patient only has PO xanax. Awaiting response. Patient is wanting to discuss goals of care. Will pass along patient wishes to speak with day doctor. 0631- Patient has 30 of lantus due, BG 114. Patient is NPO and has not been getting lantus. Per Dr. Ramírez do not give, it should be on hold.
[2024-09-16 06:38] LABS: Glucose Point of Care 114 mg/dL (70-110)
--- NOTE | 2024-09-16 06:52 | PC.NURSE ---
Patient up in w/c with this nurse, we made a couple laps in hallway then patient wanted to go back to room. Patient would like to stay up in w/c instead of recliner. Patient current is on commode attempting to have BM.
[2024-09-16] MEDS: heparin drip 25,000 UNIT/500 ML PREMIX 29 UNIT IV (07:17)
--- NOTE | 2024-09-16 07:31 | PC.NURSE ---
Nursing noticed on the heparin drip restart that it is documented that the 29 was put under the units/kg/hr so it looks like it was running at 76.56. Nursing did confirm that it was restarted and running at 29 mls/hr.
--- NOTE | 2024-09-16 08:42 | XR_ITS ---
WS: [id number] PORTABLE CHEST HISTORY: post picc insertion COMPARISON: 09/15/2024 Right-sided PICC line insertion with the tip terminating near the cavoatrial junction. Continued mild interstitial edema. No focal consolidation. No pneumothorax. Cardiac size: Moderately enlarged cardiac silhouette. Mediastinum/Aorta: Normal mediastinum. No osseous abnormality seen. NG tube in good position. XR/XR chest 1V portable [id number] IMPRESSION: Satisfactory placement right-sided PICC line.
--- NOTE | 2024-09-16 09:06 | P.PN_ITS ---
<Statement entered by Jaiden Newell M.D - 09/28/24 09:30> Patient was evaluated and cared for in conjunction with an advanced practice practitioner. I personally examined the patient and reviewed the chart and all pertinent data including imaging, telemetry, and laboratory results. I discussed the patient in detail with the advanced practice practitioner. Please see their note for complete progress note, testing result and agreed upon plan of care for the patient. Subjective 2 Subjective: Overall patient has no complaints. Denies any chest pain.She does understand she is at high risk for surgery but does need the surgery due to acute SBO. - 3000 over 24 hours. Vitals/I&O/Wt Last Vital Signs Temp 97.8 F 09/16/24 08:00 Pulse 66 09/16/24 08:00 Resp 20 H 09/16/24 08:00 BP 130/48 09/16/24 08:00 Pulse Ox 99 09/16/24 08:00 O2 Del Method Nasal Cannula 09/16/24 08:00 O2 Flow Rate 2 09/16/24 08:00 09/15/24 09/16/24 09/16/24 22:59 06:59 14:59 Intake Total 500 / 500 0 / 500 Output Total 2000 / 2300 1300 / 3600 Balance -1500 / -1800 -1300 / -3100 Weight last 48 hrs Weight 272 lb 4.334 oz Weight 272 lb 4.334 oz Weight 291 lb 0.163 oz Weight 291 lb 0.163 oz Physical Exam 2 Narrative: General: No apparent distress, healthy appearing, well nourished HENMT: normoceophalic Muskuloskeletal: Full ROM Lymphatic: no lymphedema noted Respiratory: Normal respiratory effort, clear to auscultation bilaterally throughout all lung [place], no use of accessory muscles Cardio: No JVD, regular rate, regular rhythm, S1 S2 normal, no murmurs, peripheral pulses 2+ radial palpated bilaterally GI: NG tube in place Extremities: Full ROM, normal, normal capillary refill, no cyanosis, 2+ nonpitting edema bilateral feet and ankles Neuro: Alert and oriented x4, no focal motor deficits Psych: Affect normal, denies suicidal ideation, mental status grossly normal Skin: No rashes or lesions noted, no wounds Data 09/16/24 03:33 09/16/24 03:33 Micro: Microbiology 09/13/24 01:28 Urine Culture - Final Urine,Clean Catch A&P Assessment and plan (1) CAD (coronary artery disease): Qualifiers: Coronary Disease-Associated Artery/Lesion type: [place] artery [place] vs. transplanted heart: [place] heart Associated angina: angina presence unspecified Qualified Code(s): I25.10 - Atherosclerotic heart disease of [place] coronary artery without angina pectoris (2) Chest pain: Qualifiers: Chest pain type: unspecified Qualified Code(s): R07.9 - Chest pain, unspecified (3) Elevated troponin: (4) CHF (congestive heart failure): Qualifiers: Heart failure chronicity: acute on chronic Heart failure type: systolic Qualified Code(s): I50.23 - Acute on chronic systolic (congestive) heart failure (5) Hypertensive urgency: Plan Alejandrailinta has been stopped for surgery. It is my understanding that this may take place tomorrow. At this time she denies chest pain. She will be high risk for any surgical intervention, although she needs this due to the SBO. She understands her cardiac risk. She has had a stent about 4 months ago, so will recommend continuing heparin and aspirin. EKG showed no ischemic changes. Her trop. is at baseline. PDMP PDMP Reviewed: Not Reviewed Attestations 2 Medical Necessity Statement*: Deferred to primary care Coding Level of Care Code Acute Code for Chg Fwd Diagnoses Coronary artery disease involving [place] coronary artery of [place] heart, angina presence unspecified I25.10 Coronary Disease-Associated Artery/Lesion type: [place] artery [place] vs. transplanted heart: [place] heart Associated angina: angina presence unspecified Chest pain, unspecified type R07.9 Chest pain type: unspecified Elevated troponin R77.8 Acute on chronic systolic congestive heart failure I50.23 Heart failure chronicity: acute on chronic Heart failure type: systolic Hypertensive urgency I16.0
--- NOTE | 2024-09-16 09:28 | PC.SOCIAL ---
IMM Update Pg. 2 of IMM updated, copy provided at bedside.
--- NOTE | 2024-09-16 09:56 | PICC.NOTE ---
Right triple lumen PICC placed to right basilic vein. Referred to vascular access nurse for PICC placement due to need for TPN. Risks and benefits discussed and informed consent obtained from pt. Right arm assessed with right basilic vein measuring 4.0 mm, straight, and apparent best choice for placement. Using sterile technique and MST, right basilic vein accessed x 1 stick. Mid-arm circumference measured 10 cm from right AC 43 cm. Trimmed cath 46 cm with 2 cm external length noted. CXR shows tip in cavoatrial junction, in good position for use per radiologist. Line secured with stat-lock. Insertion site covered with Biopatch and TSM. Report given to bedside nurse, DEANGELO Cabral.
[2024-09-16 11:33] LABS: Partial Thromboplastin Time 87.5 SECONDS (23.9-36.7)
[2024-09-16] MEDS: HYDROMORPHONE HCL 0.5 MG/0.5 ML INJ 0.4 MG IVP ×3 (11:49→21:43)
[2024-09-16 11:56] LABS: Glucose Point of Care 143 mg/dL (70-110)
--- NOTE | 2024-09-16 13:49 | P.PN_ITS ---
Subjective 2 Subjective: 63-year-old female with morbid obesity a nd multiple comorbidities including heart failure and NSTEMI. She presented with a small bowel obstruction, has failed conservative management. NG tube decompression has been successful in improving patient's symptoms overnight. Her vitals have remained stable as well as laboratory workup. Vitals/I&O/Wt Last Vital Signs Temp 97.5 F L 09/16/24 12:00 Pulse 67 09/16/24 12:00 Resp 20 H 09/16/24 12:00 BP 126/40 09/16/24 12:00 Pulse Ox 95 09/16/24 12:00 O2 Del Method Nasal Cannula 09/16/24 12:00 O2 Flow Rate 2 09/16/24 12:00 09/15/24 09/16/24 09/16/24 22:59 06:59 14:59 Intake Total 500 / 500 0 / 500 130.5 / 130.5 Output Total 2000 / 2300 1300 / 3600 Balance -1500 / -1800 -1300 / -3100 130.5 / 130.5 Weight last 48 hrs Weight 272 lb 4.334 oz Weight 272 lb 4.334 oz Weight 291 lb 0.163 oz Weight 291 lb 0.163 oz Physical Exam 2 HENMT: OTHER: NG tube is in place. Bilious output. GI: OTHER: Abdomen is soft there are some tenderness in the mid abdomen, no significant distention. Data 09/16/24 03:33 09/16/24 03:33 Micro: Microbiology 09/13/24 01:28 Urine Culture - Final Urine,Clean Catch A&P Assessment and plan (1) Obesity: (2) Small bowel obstruction: Plan Marcello had extensive discussion with the patient, medical team and family members. I have discussed with the patient the possibility of surgery as she does not show any significant progression of the conservative management of her small bowel obstruction. Patient asked me to talk to her family member Blank (sister) regarding the possibility of surgery. I have explained to the patient and family member that we will offer her diagnostic laparoscopy with possible exploratory laparotomy, bowel resection, possible ostomy creation and possible repair of her ventral hernia with mesh. I have reviewed all imaging of this patient and I did not there is a probability that the obstruction is at the level of the hernia itself and therefore we will start with laparoscopy in the approach rather than proceeding directly with a laparotomy. I have explained to the patient the risk and benefits of the operation. I have explained to the patient that she has extremely high risk of mortality and morbidity both in the OR and after surgery. Her cardiac risk is extremely elevated, she has history of previous coronary artery disease, her troponins are elevated and has history of in-stent restenosis. Her current BMI also increases the chances for morbidity. I discussed the risks of bowel perforation, fistula formation, major bleeding, injury to intra-abdominal structures, need for prolonged hospital stay, lack of coverage for hernia requiring open abdomen, hernia recurrence, wound care complications, poor wound healing, recurrence of a small bowel obstruction, sepsis, . I have also explained to the patient that there is a good chance that after surgery she may not be extubated and will require to remain intubated in the ICU. Currently her resuscitation status is to allow natural , therefore in the case of any adverse cardiac events IntraOp no chest compressions will be offered. Patient and family member agree with the proposed operation and want to proceed. We have order platelets to be prepare and 1 unit will be transfused tomorrow morning before surgery. Heparin drip will be held at 5 AM tomorrow. PDMP PDMP Reviewed: Not Reviewed Attestations 2 Medical Necessity Statement*: per medical team Coding Level of Care Code Acute Code for Chg Fwd Diagnoses Obesity E66.9 Small bowel obstruction K56.609
--- NOTE | 2024-09-16 17:01 | PM.PN ---
Subjective Subjective: 63-year-old female with a past medical history of coronary artery disease, type 2 diabetes mellitus, hypertension, skilled nursing resident, wheelchair-bound, recent percutaneous coronary intervention for in-stent restenosis to mid right coronary artery, balloon angioplasty to distal left circumflex artery for in-stent restenosis in April 2024, congestive heart failure with ejection fraction of 41%, cerebrovascular accident, dyslipidemia, restless leg syndrome, and obstructive sleep apnea presents with chest pain and difficulty breathing on 09/12/2024. Shortly after admission, the patient complained of abdominal pain for which a rapid response was called. Lactic acid was elevated. CT abdomen pelvis revealed a small bowel obstruction. NG tube was placed and IV fluids were initiated. Initially, 800 mL output was noted. On 09/15/2024, a gastrografin series was ordered, which showed no progression of gastrografin to the distal small bowel, remaining in the stomach and proximal dilated bowel. NG tube was briefly clamped, however, reconnected to low intermittent suction after she had 1 liter of bilious emesis. On 09/15/2024, the patient was scheduled for OR on 09/16/2024. At the time of evaluation on 09/16/2024, she was complaining of wanting to eat and abdominal discomfort. The patient understood the risks and benefits of surgery, which were discussed between the patient and cardiology. She was on a heparin drip. Vitals/I&O/Wt Last Vital Signs Temp 97.5 F L 09/16/24 12:00 Pulse 68 09/16/24 13:52 Resp 18 09/16/24 13:52 BP 126/40 09/16/24 12:00 Pulse Ox 95 09/16/24 13:52 O2 Del Method Nasal Cannula 09/16/24 13:52 O2 Flow Rate 2 09/16/24 13:52 09/16/24 09/16/24 09/16/24 06:59 14:59 22:59 Intake Total 0 / 500 130.5 / 130.5 Output Total 1300 / 3600 Balance -1300 / -3100 130.5 / 130.5 Weight last 48 hrs Weight 126 kg Weight 123.5 kg Weight 123.5 kg Weight 132 kg Weight 132 kg Physical Exam Narrative: General: No acute distress, AO x3, chronically sick appearing, morbidly obese on 2 L of nasal cannula, NG tube in place HEENT: PERRLA, pupils bilaterally equal and reactive Chest: Bilateral bronchial breath sounds over lung [place], decreased air entry bilaterally in lower zone, fine crackles present up to mid lungs CVS: S1-S2 regular, no murmurs, no tachycardia, no gallops, no rubs Abdomen: Soft, nontender, no organomegaly, bowel sounds sluggish Neuro: No focal deficits, no facial deformity, AO x3, power 5/5 in all limbs Extremity: 2+ pitting edema up to mid thigh bilaterally Data 09/16/24 03:33 09/16/24 03:33 Micro: Microbiology 09/13/24 01:28 Urine Culture - Final Urine,Clean Catch A&P Assessment and plan (1) Small bowel obstruction: - Appreciated on CT abdomen pelvis. - Failed Gastrograffin on 09/15 - NG in place to low intermitttent suction Plan: 1. Plan to proceed with OR an am 2. Heparin drip to stop prior to surgery 3. Discussed with surgery today 4. Remain NPO (2) Non-ST elevation VA (NSTEMI): - History of coronary artery disease (CAD) with recent in-stent restenosis to mid right coronary artery (RCA) and left circumflex artery (LCx). Presenting with chest pain and difficulty breathing. Baseline troponin elevated Plan: - No Chest pain today - Cardiology on board - On heparin drip - On aspirin 300 mg IL daily - Brilinta no hold - Echo reviewed (3) Hypertensive urgency: - Stable Patient has been NPO. Has been on clonidine patch, previously was on nitro drip - Hydralazine PRN (4) CHF (congestive heart failure): - Acute on chronic systolic heart failure. Last echocardiogram from April 2024 shows an ejection fraction (EF) of 40% with grade 1 diastolic dysfunction, mild left ventricular hypertrophy (LVH), moderate mitral regurgitation (MR). - Negative 8.6L balance Plan: 1. Echocardiogram as above. 2. Fluid restriction to less than 1500 mL. 3. Patient is euvolemic. Hold off on further Lasix Qualifiers: Heart failure chronicity: acute on chronic Heart failure type: systolic Qualified Code(s): I50.23 - Acute on chronic systolic (congestive) heart failure (5) Leukocytosis: Has been on meropenum Culture negative (6) CKD (chronic kidney disease): Baseline creatinine of 1.3-1.6. As high as 1.9 in last 1 year. Creatinine stable at 1.4 today. Qualifiers: Chronic kidney disease stage: stage 3 (moderate) (7) CAD (coronary artery disease): management as above Qualifiers: Coronary Disease-Associated Artery/Lesion type: [place] artery [place] vs. transplanted heart: [place] heart Associated angina: angina presence unspecified Qualified Code(s): I25.10 - Atherosclerotic heart disease of [place] coronary artery without angina pectoris (8) DM type 2 (diabetes mellitus, type 2): Continue with home dose of Lantus. Sliding scale at high dose protocol. A1c 7.6. Qualifiers: Diabetes mellitus fdc insulin use: without fdc use Diabetes mellitus complication status: without complication Qualified Code(s): E11.9 - Type 2 diabetes mellitus without complications (9) Morbid obesity: (10) Goals of care, counseling/discussion: (11) Chest pain: Qualifiers: Chest pain type: unspecified Qualified Code(s): R07.9 - Chest pain, unspecified (12) Fecal impaction in rectum: Seen on CT abdomen/pelvis. Disimpacted by surgical team. Plan As noted above - Repeat labs in am - Appreciate cardiology input PDMP PDMP Reviewed: Not Reviewed Attestations Medical Necessity Statement*: Requires further hospitalization for management of small bowel obstruction undergoing conservative treatment, non-ST elevation VA in a patient with recent history of in-stent restenosis Coding Level of Care Code Acute Code for [facility] Fwd Diagnoses Small bowel obstruction K56.609 Non-ST elevation VA (NSTEMI) I21.4 Hypertensive urgency I16.0 Acute on chronic systolic congestive heart failure I50.23 Heart failure chronicity: acute on chronic Heart failure type: systolic Leukocytosis D72.829 CKD (chronic kidney disease) N18.9 Chronic kidney disease stage: stage 3 (moderate) Coronary artery disease involving [place] coronary artery of [place] heart, angina presence unspecified I25.10 Coronary Disease-Associated Artery/Lesion type: [place] artery [place] vs. transplanted heart: [place] heart Associated angina: angina presence unspecified Type 2 diabetes mellitus without complication, without long-term current use of insulin E11.9 Diabetes mellitus terminologist insulin use: without terminologist use Diabetes mellitus complication status: without complication Morbid obesity E66.01 Goals of care, counseling/discussion Z71.89 Chest pain, unspecified type R07.9 Chest pain type: unspecified Fecal impaction in rectum K56.41
[2024-09-16 17:25] LABS: Glucose Point of Care 127 mg/dL (70-110)
--- NOTE | 2024-09-16 19:18 | PC.NURSE ---
Dr. Howe asked nursing staff to stop patients heparin drip at 0500 on 09/17/2024 prior to her surgery.
[2024-09-16 20:07] LABS: Partial Thromboplastin Time 74.5 SECONDS (23.9-36.7)
[2024-09-16 21:51] LABS: Glucose Point of Care 118 mg/dL (70-110)
[2024-09-17] VITALS (16 sets, daily range): BP systolic 104–159; BP diastolic 34–82; PULSE 73–89; RESP 12–22; TEMP 36.1–36.7; O2SAT 90–100
[2024-09-17] MEDS: ipratropium 0.5 mg/2.5 mL Neb INHALATION (01:24)
[2024-09-17] MEDS: levalbuterol 0.63 mg/3 mL Neb INHALATION (01:24)
[2024-09-17] MEDS: metoprolol tartrate 1 mg/1 mL SDV 5 mL 5 MG IVP ×3 (02:42→21:21)
[2024-09-17] MEDS: HYDROMORPHONE HCL 0.5 MG/0.5 ML INJ 0.4 MG IVP (03:22)
[2024-09-17 03:28] LABS: Basophils % 0.3 %; Eosinophils # 0.8 10^3/uL (0.0-0.8); Eosinophils % 9.5 %; Hematocrit 29.8 % (36-47); Lymphocytes # 1.8 10^3/uL (0.8-4.8); Mean Corpuscular HGB Conc 30.5 g/dL (30-55); Mean Corpuscular Hemoglobin 27.4 pg (27-33); Mean Corpuscular Volume 89.8 fl (85-98); Mean Platelet Volume 9.5 fL (7.4-10.4); Monocytes # 0.7 10^3/uL (0.2-0.9); Monocytes % 7.9 %; Neutrophils # 5.23 10^3/uL (1.8-7.7); Nucleated Red Blood Cells % 0 %; Platelet Count 290 10^3/cmm (157-399); Red Blood Count 3.32 10^6/uL (3.85-5.65)
[2024-09-17 03:32] LABS: Glucose Point of Care 117 mg/dL (70-110)
[2024-09-17 03:39] LABS: Partial Thromboplastin Time 62.8 SECONDS (23.9-36.7)
[2024-09-17 03:56] LABS: Alanine Aminotransferase 7 U/L (0-33); Albumin Level 3.1 g/dL (3.5-5.2); Alkaline Phosphatase 73 U/L (35-105); Aspartate Amino Transferase 12 U/L (0-32); Blood Urea Nitrogen 31 mg/dL (8-23); Carbon Dioxide 29 mmol/L (22-29); Chloride 104 mmol/L (98-107); Glomerular Filtration Rate 45.7 mL/min (90-130); Glucose 114 mg/dL (65-115); Osmolality Calculated 311 mOsm/kg (285-295); Sodium 147 mmol/L (136-145); Total Bilirubin 0.3 mg/dL (0.15-1.2); Total Protein 6.1 g/dL (6.6-8.7)
[2024-09-17] MEDS: meropenem 1,000 mg SDV 1000 MG IVP (04:23)
--- NOTE | 2024-09-17 06:43 | PC.NURSE ---
Dr. Howe at bedside, recieved verbal order to advance NG tube to second marking.
[2024-09-17 07:20] LABS: Glucose Point of Care 110 mg/dL (70-110)
--- NOTE | 2024-09-17 09:32 | PC.NURSE ---
Platelet transfusion order is confirmed with Dr. Howe. He wants one unit of platelets transfused around 1000 and the other unit is for in surgery.
[2024-09-17 10:12] LABS: Glucose Point of Care 107 mg/dL (70-110)
--- NOTE | 2024-09-17 10:36 | PC.NURSE ---
Nursing staff hung her platelets and started the verification and preop came to get the patient. Transfusion will take place in preop. Left unit at 1038.
[2024-09-17] MEDS: sodium chloride 0.9% 250 ML 50 ML IV (10:41)
[2024-09-17 11:15] LABS: Glucose Point of Care 117 mg/dL (70-110)
[2024-09-17] MEDS: sodium chloride 0.9% 1,000 ML 30 ML IV (11:18)
--- NOTE | 2024-09-17 11:27 | W.PM.OPSUD ---
Surgery/Procedure H&P Update DATE OF PROCEDURE: September 17, 2024 DATE H&P PERFORMED: 09/12/24 H&P UPDATE INFORMATION: I have reviewed H&P completed within last 30 days, I have examined patient prior to procedure, No changes to prior documentation and H&P is in [facility] EMR on date indicated PLANNED PROCEDURE: Operation Date: 09/17/24 11:00 Proposed Procedures p Laparoscopy Diagnostic(Not Applicable) - Zurdo Howe MD s Laparoscopic Small Bowel Resection(Not Applicable) - Zurdo Howe MD s Exploratory Laparotomy(Not Applicable) - Zurdo Howe MD
--- NOTE | 2024-09-17 11:30 | ANES.PREANE2 ---
Pre-Anesthetic Assessment Height/Weight: Height 1.6 m Weight 125.191 kg Temp Pulse Resp BP Pulse Ox O2 Del Method O2 Flow Rate 97.7 F 89 22 H 151/64 94 Nasal Cannula 2 09/17/24 10:23 09/17/24 10:23 09/17/24 10:23 09/17/24 10:23 09/17/24 10:23 09/17/24 07:46 09/17/24 01:24 Operation Date: 09/17/24 11:00 Proposed Procedures p Laparoscopy Diagnostic(Not Applicable) - Zurdo Howe MD s Laparoscopic Small Bowel Resection(Not Applicable) - Zurdo Howe MD s Exploratory Laparotomy(Not Applicable) - Zurdo Howe MD Familial anesthetic complications: None Was Beta Brigida taken within 24 hours: N/A Was Clonidine taken within 24 hours: N/A Last intake: Intake Last Liquid Date 09/17/24 Last Liquid Time 06:00 Last Solid Date 09/12/24 Last Solid Time 17:00 Social No alcohol and No tobacco Exam alert, oriented x 3, clear to auscultation bilaterally and regular rate & rhythm Airway Mallampati: Class II Dentition: false Pulmonary Chronic Obstructive Pulmonary Disease Hx PE CV/HEM Coronary Artery Disease, Congestive Heart Failure, Hypertension and Myocardial Infarction Chronic Renal Insufficiency GI Gastroesophageal Reflux Disease Metabolic Diabetes Mellitus, Morbid Obesity and Thyroid Disease Anesthetic Plan ASA status: 4 Anesthesia: General Risk of > 500 ml blood loss (7ml/kg in children): Yes, adequate IV access and fluids planned Other Pertinent Information Discussed code status multiple times with patient and family. They re-assert that the patient does not want chest compression or shocks. She is ok with receiving medicines, fluid, and blood products. Medications/Allergies Home Medications ?Medication ?Instructions ?Recorded ?Confirmed ?Last Taken ?Type tamsulosin 0.4 mg capsule 0.4 mg PO BEDTIME@22 01/06/23 09/12/24 09/11/24 History cholecalciferol (vitamin D3) 1,250 50,000 unit PO Q7D 01/18/23 09/12/24 07/20/24 History mcg (50,000 unit) capsule nitroglycerin 0.4 mg sublingual 0.4 mg sublingual Q5M PRN Chest 01/18/23 09/12/24 Unknown History tablet (Nitrostat) Pain potassium chloride 10 mEq 10 meq PO DAILY@07 01/18/23 09/12/24 09/12/24 History tablet,extended release ropinirole 0.5 mg tablet 0.5 mg PO BEDTIME@22 #30 tabs 01/24/23 09/12/24 09/11/24 Rx levothyroxine 25 mcg capsule 50 mcg PO QAM 05/08/23 09/12/24 09/12/24 History hydrocodone 10 mg-acetaminophen 1 tab PO Q6H PRN Pain, Moderate 09/07/23 09/12/24 09/12/24 History 325 mg tablet pantoprazole 40 mg tablet,delayed 40 mg PO QAM 09/07/23 09/12/24 09/12/24 History release trazodone 50 mg tablet 50 mg PO BEDTIME 09/07/23 09/12/24 09/11/24 History bupropion HCl 200 mg tablet,12 hr 200 mg PO BID 09/14/23 09/12/24 09/12/24 History sustained-release insulin lispro 100 unit/mL 29 sliding scale dose SUBCUT TID 09/14/23 09/12/24 09/12/24 History subcutaneous pen (Humalog KwikPen (U-100) Insulin) acetaminophen 650 mg 1,300 mg PO Q8H PRN Pain 11/14/23 09/12/24 07/10/24 History tablet,extended release aspirin 81 mg tablet,delayed 81 mg PO DAILY@07 #60 tabs 11/23/23 09/12/24 09/12/24 Rx release ticagrelor 90 mg tablet (Brilinta) 90 mg PO BID@07,22 #120 tabs 11/23/23 09/12/24 09/11/24 Rx ranolazine 500 mg tablet,extended 500 mg PO BID #60 tabs 12/22/23 09/12/24 09/12/24 Rx release,12 hr insulin glargine 100 unit/mL (3 30 unit SUBCUT QAM 02/28/24 09/12/24 09/12/24 History mL) subcutaneous pen (Lantus Solostar U-100 Insulin) isosorbide mononitrate 60 mg 60 mg PO DAILY 02/28/24 09/12/24 09/12/24 History tablet,extended release 24 hr bumetanide 2 mg tablet 2 mg PO DAILY #60 tabs 03/24/24 09/12/24 09/12/24 Rx metoprolol tartrate 50 mg tablet 50 mg PO BID #60 tabs 03/24/24 09/12/24 09/12/24 Rx atorvastatin 80 mg tablet 80 mg PO BEDTIME 07/22/24 09/12/24 09/11/24 History ondansetron HCl 4 mg tablet 4 mg PO Q4H PRN Nausea And Vomiting 07/22/24 09/12/24 07/21/24 History albuterol sulfate 2.5 mg/3 mL 2.5 mg inhalation Q4H PRN 08/14/24 09/12/24 Unknown History (0.083 %) solution for nebulization Shortness Of Breath Or Wheezing calcium carbonate 1,000 mg PO DAILY 09/12/24 09/12/24 Unknown History docusate sodium 100 mg capsule 100 mg PO BID 09/12/24 09/12/24 09/12/24 History phenazopyridine 200 mg tablet 200 mg PO Q8H PRN Urinary Retention 09/12/24 09/12/24 Unknown History Allergies Allergy/AdvReac Type Severity Reaction Status Date / Time hyoscyamine Allergy Severe ADR-Itching Verified 08/14/24 15:08 cefdinir Allergy Unknown Verified 08/14/24 15:08 ciprofloxacin (From Cipro) Allergy hives Verified 08/14/24 15:08 citalopram Allergy effects Verified 08/14/24 15:08 speach and memory clopidogrel (From Plavix) Allergy unk Verified 08/14/24 15:08 coconut Allergy Unknown Verified 08/14/24 15:08 ibuprofen Allergy RASH/ Verified 08/14/24 15:08 SWELLING famotidine AdvReac Mild itching Verified 08/14/24 15:08 esomeprazole (From Nexium) AdvReac Unknown Verified 08/14/24 15:08 Current Medications Generic Name Dose Route Start Last Admin Trade Name Freq PRN Reason Stop Dose Admin Acetaminophen 650 mg 09/12/24 20:08 09/14/24 21:34 Acetaminophen 325 Mg Tablet PO 650 mg Q6H PRN Administration Mild/Mod Pain Or Temp >/= 101 Alprazolam 0.5 mg 09/12/24 20:08 09/15/24 09:07 Alprazolam 0.5 Mg Tablet PO 0.5 mg TID PRN Administration ANXIETY Aspirin 300 mg 09/14/24 09:00 09/17/24 09:31 Aspirin 300 Mg Supp WI Not Given DAILY SAÚL Atorvastatin Calcium 80 mg 09/12/24 21:00 09/12/24 23:04 Atorvastatin 40 Mg Tablet PO 80 mg QPM SAÚL Administration Bupropion HCl 200 mg 09/13/24 09:00 09/17/24 09:20 Bupropion Sr (12 Hr) 100 Mg Tablet PO Not Given BID SAÚL Carvedilol 6.25 mg 09/12/24 15:45 09/12/24 16:16 Carvedilol 6.25 Mg Tablet PO 6.25 mg BID SAÚL Administration Clonidine HCl 1 patch 09/14/24 11:00 09/14/24 10:22 Clonidine 0.3 Mg/24 Hr Patch TRANSDERMA 1 patch Q7D SAÚL Administration Hydralazine HCl 10 mg 09/12/24 20:08 09/13/24 03:49 Hydralazine 20 Mg/Ml Inj 1 Ml IVP 10 mg Q4H PRN Administration SBP More than 160 mmhg Hydromorphone HCl 0.4 mg 09/13/24 20:25 09/17/24 03:22 Hydromorphone Hcl 0.5 Mg/0.5 Ml Inj IVP 0.4 mg Q4H PRN Administration PAIN Nitroglycerin/Dextrose 50 mg in 250 mls @ 0 mls/hr 09/12/24 15:15 09/15/24 05:26 Nitroglycerin Drip IV 0 mcg/min .Q0M SAÚL 0 mls/hr Titration Protocol Per Protocol Heparin Sodium/Sodium Chloride 25,000 unit in 500 mls @ 0 mls/hr 09/15/24 14:45 09/17/24 04:46 Heparin Drip IV Infused CONT SAÚL Titration Protocol Per Protocol Sodium Chloride 250 mls @ 50 mls/hr 09/17/24 09:45 09/17/24 10:41 Sodium Chloride 0.9% IV 50 mls/hr .Q5H SAÚL Administration Sodium Chloride 1,000 mls @ 30 mls/hr 09/17/24 10:45 09/17/24 11:18 Sodium Chloride 0.9% IV 09/18/24 10:44 30 mls/hr .Q24H SAÚL Administration Insulin Glargine 30 unit 09/13/24 06:00 09/16/24 06:32 Insulin Glargine 100 Units/1 Ml SUBCUT Not Given QAM SAÚL Insulin Human Lispro 0 unit 09/13/24 09:15 09/17/24 07:40 Insulin Lispro 100 Unit/1 Ml SUBCUT Not Given Q6H SAÚL Protocol Ipratropium [place] 0.5 mg 09/12/24 20:08 09/17/24 09:32 Ipratropium 0.5 Mg/2.5 Ml Neb INHALATION Not Given Q6H.RESP SAÚL Lanolin 1 applic 09/15/24 08:50 09/16/24 00:15 Lanolin Oint 7 Gm TOPICAL 1 applic PRN PRN Administration DRYNESS Levalbuterol HCl 0.63 mg 09/12/24 20:08 09/17/24 09:32 Levalbuterol 0.63 Mg/3 Ml Neb INHALATION Not Given Q6H.RESP SAÚL Meropenem 1,000 mg 09/12/24 20:08 09/17/24 04:23 Meropenem 1,000 Mg Sdv IVP 1,000 mg Q8H SAÚL Administration Protocol Metoprolol Tartrate 5 mg 09/13/24 09:15 09/17/24 06:38 Metoprolol Tartrate 1 Mg/1 Ml Sdv 5 Ml IVP 5 mg Q4H SAÚL Administration Morphine Sulfate 2 mg 09/12/24 20:08 09/16/24 00:15 Morphine 4 Mg/Ml Sdv 1 Ml IVP 2 mg Q4H PRN Administration SEVERE PAIN Ondansetron HCl 4 mg 09/12/24 20:08 09/12/24 21:20 Ondansetron 2 Mg/Ml Sdv 2 Ml IVP 4 mg Q6H PRN Administration vomiting, or N/V if npo Phenol 3 spray 09/15/24 23:46 09/16/24 03:56 Phenol Oral [place] 177 Ml MUCOUS MEM 3 spray Q2H PRN Administration SORE THROAT Ranolazine 500 mg 09/12/24 20:08 09/12/24 23:04 Ranolazine (12hr) 500 Mg Tablet PO 500 mg BID SAÚL Administration PFSH Anesthesia Medical History (Updated 09/14/24 @ 16:31 by Clovis Szymanski MD) Otitis media, unspecified, bilateral Elevated troponin CAD (coronary artery disease) Non-ST elevation ID (NSTEMI) DM type 2 (diabetes mellitus, type 2) Unstable angina pectoris Acute kidney injury CHF (congestive heart failure) Chest pain Status post left heart catheterization (LHC) Groin hematoma Left ACL tear Fracture of fifth toe, left, closed Derangement of lateral meniscus of right knee Derangement of medial meniscus of right knee Chronic kidney disease (CKD) Lumbar stenosis with neurogenic claudication Inability to walk Renal failure Chronic cystitis with hematuria Inability to urinate Atherosclerotic heart disease of [place] coronary artery with other forms of angina pectoris Lower extremity weakness Depression with anxiety Coronary artery disease due to type 2 diabetes mellitus Morbid obesity Generalized muscle weakness Type 2 diabetes mellitus with diabetic polyneuropathy Diabetes mellitus Small bowel strangulation Dyslipidemia Chronic cystitis Gross hematuria Osteoporosis Morbid obesity Constipation Migraine headache Bilateral lower extremity edema RLS (restless legs syndrome) GERD (gastroesophageal reflux disease) BETH (obstructive sleep apnea) CVA (cerebral vascular accident) HTN (hypertension) Pulmonary embolism, bilateral Opioid contract exists Long-term use of high-risk medication Chronic low back pain Surgical History Status post coronary artery stent placement Status post lumbar laminectomy H/O heart artery stent S/P hysterectomy S/P tonsillectomy and adenoidectomy S/P appendectomy S/P cholecystectomy Hx of total knee replacement History of partial surgical removal of colon Family History Grandfather Cancer Family/Other Myocardial infarct MOTHER, FATHER, BROTHER, SISTER Hypertension Diabetes Mother , at age 66 CAD (coronary artery disease) Father , at age 74 CAD (coronary artery disease) Sister CAD (coronary artery disease) Brother CAD (coronary artery disease) Other Stroke Denies family history of Anesthesia complication Bleeding disorder Social History Smoking and tobacco/nicotine status: never used tobacco/nicotine Alcohol intake: never Substance/Drug Use: current Substance/Drug use frequency: other Other substance/drug use details: smokes medical marijauna occasionally at night to help her sleep Lives independently: Yes Marital status: Current occupational status: disabled Current gender identity: Female Special vik needs: No Data Anesthesia 09/17/24 03:11 09/17/24 03:11 Short CBC 09/16/24 09/17/24 Range/Units 03:33 03:11 WBC 7.75 8.60 (3.29-11.43) 10^3/uL Hgb 9.20 L 9.10 L (11.27-16.99) g/dL Hct 30.2 L 29.8 L (36-47) % MCV 89.3 89.8 (85-98) fl Plt Count 291 D 290 (157-399) 10^3/cmm Neut % (Auto) 51.5 61.0 % Neut # (Auto) 3.99 5.23 (1.8-7.7) 10^3/uL BMP 09/16/24 09/17/24 03:33 03:11 Sodium 145 147 H Potassium 3.7 4.0 Chloride 102 104 Carbon Dioxide 30 H 29 BUN 35 H 31 H Creatinine 1.4 H 1.2 H Glucose 117 H 114 Calcium 9.1 9.0 Liver Function 09/16/24 09/17/24 Range/Units 03:33 03:11 Total Bilirubin 0.3 0.3 (0.15-1.2) mg/dL AST 8 12 (0-32) U/L ALT 6 7 (0-33) U/L Alkaline Phosphatase 75 73 (35-105) U/L Albumin 3.0 L 3.1 L (3.5-5.2) g/dL Blood Bank 09/16/24 10:03 Blood Type O Positive Rho(D) Type Rh positive Antibody Screen Negative Coags 09/15/24 09/16/24 09/16/24 21:12 03:33 11:00 APTT 58.9 H 67.6 H 87.5 H 09/16/24 09/17/24 19:25 03:11 APTT 74.5 H 62.8 H Cardiac Studies: Echocardiogram 07/22/24 Echocardiogram Limited Views 09/12/24
--- NOTE | 2024-09-17 12:20 | P.PN_ITS ---
<Statement entered by Renay Quarles MD - 09/17/24 22:13> Patient was evaluated and cared for in conjunction with an advanced practice practitioner. I personally examined the patient and reviewed the chart and all pertinent data including imaging, telemetry, and laboratory results. I discussed the patient in detail with the advanced practice practitioner. Please see their note for complete H&P testing result and agreed upon plan of care for the patient. Patient denies any chest pain complaining of lower abdominal pain GENERAL: Patient is alert, awake and oriented x3. Sitting in the bed HEART: Regular S1 and S2. No murmur, rub or gallop. LUNGS: Clear to auscultate bilaterally. CENTRAL NERVOUS SYSTEM: Grossly nonfocal. EXTREMITIES: Lower extremities with out edema bilaterally. Coronary artery disease Diastolic heart failure chronic Ischemic cardiomyopathy Stable doing fine from a cardiovascular perspective. Keep perioperative beta marjorie intact Patient need urgent abdominal/surgery for bowel obstruction: Patient can proceed with surgery under acceptable risk for anesthesia and surgery. Perioperative beta-marjorie intact Subjective 2 Subjective: Patient seen this morning without complaints. She is going for surgery today. Vitals/I&O/Wt Last Vital Signs Temp 97.7 F 09/17/24 10:23 Pulse 89 09/17/24 10:23 Resp 22 H 09/17/24 10:23 BP 151/64 09/17/24 10:23 Pulse Ox 94 09/17/24 10:23 O2 Del Method Nasal Cannula 09/17/24 07:46 O2 Flow Rate 2 09/17/24 01:24 09/16/24 09/17/24 09/17/24 22:59 06:59 14:59 Intake Total 223.6 / 354.1 145.9 / 500.0 0 / 0 Output Total 300 / 300 1400 / 1700 Balance -76.4 / 54.1 -1254.1 / -1200.0 0 / 0 Weight last 48 hrs Weight 276 lb Weight 277 lb 12.519 oz Weight 272 lb 4.334 oz Weight 272 lb 4.334 oz Physical Exam 2 Narrative: General: No apparent distress, healthy appearing, well nourished HENMT: normoceophalic Muskuloskeletal: Full ROM Lymphatic: no lymphedema noted Respiratory: Normal respiratory effort, clear to auscultation bilaterally throughout all lung [place], no use of accessory muscles Cardio: No JVD, regular rate, regular rhythm, S1 S2 normal, no murmurs, peripheral pulses 2+ radial palpated bilaterally GI: NG tube in place Extremities: Full ROM, normal, normal capillary refill, no cyanosis, 2+ nonpitting edema bilateral feet and ankles Neuro: Alert and oriented x4, no focal motor deficits Psych: Affect normal, denies suicidal ideation, mental status grossly normal Skin: No rashes or lesions noted, no wounds Data 09/17/24 03:11 09/17/24 03:11 A&P Assessment and plan (1) CAD (coronary artery disease): Qualifiers: Coronary Disease-Associated Artery/Lesion type: [place] artery [place] vs. transplanted heart: [place] heart Associated angina: angina presence unspecified Qualified Code(s): I25.10 - Atherosclerotic heart disease of [place] coronary artery without angina pectoris (2) Chest pain: Qualifiers: Chest pain type: unspecified Qualified Code(s): R07.9 - Chest pain, unspecified (3) Elevated troponin: (4) CHF (congestive heart failure): Qualifiers: Heart failure chronicity: acute on chronic Heart failure type: systolic Qualified Code(s): I50.23 - Acute on chronic systolic (congestive) heart failure (5) Hypertensive urgency: Plan Patient has no complaints today. She is going to surgery today. From a cardiac standpoint continue current medical management. PDMP PDMP Reviewed: Not Reviewed Attestations 2 Medical Necessity Statement*: Deferred to primary. Coding Level of Care Code Acute Code for [facility] Fwd Diagnoses Coronary artery disease involving [place] coronary artery of [place] heart, angina presence unspecified I25.10 Coronary Disease-Associated Artery/Lesion type: [place] artery [place] vs[place] transplanted heart: [place] heart Associated angina: angina presence unspecified Chest pain, unspecified type R07.9 Chest pain type: unspecified Elevated troponin R77.8 Acute on chronic systolic congestive heart failure I50.23 Heart failure chronicity: acute on chronic Heart failure type: systolic Hypertensive urgency I16.0
[2024-09-17] MEDS: acetaminophen 1,000 MG/100 ML PIGGYBACK 400 MG IV ×2 (15:19→21:19)
--- NOTE | 2024-09-17 15:28 | P.PN_ITS ---
Subjective 2 Subjective: Patient was seen prior to OR. She was noted to have 750 mL output from NG tube overnight. She did not have any new complaints at the time of my evaluation. Vitals/I&O/Wt Last Vital Signs Temp 97.7 F 09/17/24 10:23 Pulse 89 09/17/24 10:23 Resp 22 H 09/17/24 10:23 BP 151/64 09/17/24 10:23 Pulse Ox 94 09/17/24 10:23 O2 Del Method Nasal Cannula 09/17/24 07:46 O2 Flow Rate 2 09/17/24 01:24 09/17/24 09/17/24 09/17/24 06:59 14:59 22:59 Intake Total 145.9 / 500.0 0 / 0 Output Total 1400 / 1700 Balance -1254.1 / -1200.0 0 / 0 Weight last 48 hrs Weight 125.191 kg Weight 126 kg Weight 123.5 kg Weight 123.5 kg Physical Exam 2 Narrative: General: No acute distress, AO x3, NG tube in place HEENT: PERRLA, pupils bilaterally equal and reactive Chest: Bilateral bronchial breath sounds over lung [place], decreased air entry bilaterally in lower zone, fine crackles present up to mid lungs CVS: S1-S2 regular, no murmurs, no tachycardia, no gallops, no rubs Abdomen: Soft, nontender, no organomegaly, bowel sounds sluggish Neuro: No focal deficits, no facial deformity, AO x3, power 5/5 in all limbs Extremity: 2+ pitting edema up to mid thigh bilaterally Data 09/17/24 03:11 09/17/24 03:11 A&P Assessment and plan (1) Small bowel obstruction: - Appreciated on CT abdomen pelvis. - Failed Gastrograffin on 09/15 - NG in place to low intermitttent suction Plan: 1. OR today 2. Will plan to resume heparin drip post op when ok with surgery 3. Will follow post op 4. Possible need to initiate on TPN (2) Non-ST elevation IA (NSTEMI): - History of coronary artery disease (CAD) with recent in-stent restenosis to mid right coronary artery (RCA) and left circumflex artery (LCx). Presenting with chest pain and difficulty breathing. Baseline troponin elevated Plan: - No Chest pain today - Cardiology on board - On heparin drip - On aspirin 300 mg MS daily - Brilinta no hold - Echo reviewed - No change to management (3) Hypertensive urgency: - Stable Patient has been NPO. Has been on clonidine patch, previously was on nitro drip - Hydralazine PRN - Last BP today Systolics of 150s (4) CHF (congestive heart failure): - Acute on chronic systolic heart failure. Last echocardiogram from April 2024 shows an ejection fraction (EF) of 40% with grade 1 diastolic dysfunction, mild left ventricular hypertrophy (LVH), moderate mitral regurgitation (MR). - Negative 8.6L balance Plan: 1. Echocardiogram as above. 2. Fluid restriction to less than 1500 mL. 3. Patient is euvolemic. Hold off on further Lasix 4. Will assess daily for diuretics needs Qualifiers: Heart failure chronicity: acute on chronic Heart failure type: systolic Qualified Code(s): I50.23 - Acute on chronic systolic (congestive) heart failure (5) Leukocytosis: Has been on meropenum since the Cultures all have been negative NO leukocytosis Will Discontinue Meropenum for now (6) CKD (chronic kidney disease): Baseline creatinine of 1.3-1.6. As high as 1.9 in last 1 year. Creatinine stable at 1.2 today. stable, slight increase in sodium to 147 BMP in am Qualifiers: Chronic kidney disease stage: stage 3 (moderate) (7) CAD (coronary artery disease): management as above Qualifiers: Coronary Disease-Associated Artery/Lesion type: [place] artery [place] vs. transplanted heart: [place] heart Associated angina: angina presence unspecified Qualified Code(s): I25.10 - Atherosclerotic heart disease of [place] coronary artery without angina pectoris (8) DM type 2 (diabetes mellitus, type 2): Continue with home dose of Lantus. Sliding scale at high dose protocol. A1c 7.6. Qualifiers: Diabetes mellitus emt intermediate insulin use: without longterm use Diabetes mellitus complication status: without complication Qualified Code(s): E11.9 - Type 2 diabetes mellitus without complications (9) Morbid obesity: (10) Goals of care, counseling/discussion: (11) Chest pain: Qualifiers: Chest pain type: unspecified Qualified Code(s): R07.9 - Chest pain, unspecified (12) Fecal impaction in rectum: Seen on CT abdomen/pelvis. Disimpacted by surgical team. Plan As noted above - Repeat labs in am - Appreciate cardiology input - Monitor off abx - Discuss TPN with surgery - Post op care PDMP PDMP Reviewed: Not Reviewed Attestations 2 Medical Necessity Statement*: Requires further hospitalization for management of small bowel obstruction undergoing conservative treatment, non-ST elevation IA in a patient with recent history of in-stent restenosis Coding Level of Care Code Acute Code for Chg Fwd Diagnoses Small bowel obstruction K56.609 Non-ST elevation IA (NSTEMI) I21.4 Hypertensive urgency I16.0 Acute on chronic systolic congestive heart failure I50.23 Heart failure chronicity: acute on chronic Heart failure type: systolic Leukocytosis D72.829 CKD (chronic kidney disease) N18.9 Chronic kidney disease stage: stage 3 (moderate) Coronary artery disease involving [place] coronary artery of [place] heart, angina presence unspecified I25.10 Coronary Disease-Associated Artery/Lesion type: [place] artery [place] vs. transplanted heart: [place] heart Associated angina: angina presence unspecified Type 2 diabetes mellitus without complication, without long-term current use of insulin E11.9 Diabetes mellitus longterm insulin use: without emt intermediate use Diabetes mellitus complication status: without complication Morbid obesity E66.01 Goals of care, counseling/discussion Z71.89 Chest pain, unspecified type R07.9 Chest pain type: unspecified Fecal impaction in rectum K56.41
[2024-09-17] MEDS: BUPivacaine 0.25% INJ 30 mL INJECTION (15:33)
[2024-09-17] MEDS: lidocaine-epi 1% PF 1:200,000 30 mL SDV INJECTION (15:33)
--- NOTE | 2024-09-17 16:32 | P.OP_ITS ---
Operative Report Date of procedure: September 17, 2024 Pre-op diagnosis: Small bowel obstruction Post-op diagnosis: Same Post-op findings: There was a large ventral hernia measuring about 10 x 10 cm. There was thick adhesions from the omentum to the hernia sac and anterior abdominal wall, there were adhesions from the omentum to the lateral abdominal wall causing a kink in the small bowel, there was adhesions from the omentum to the ascending colon and some loops of the small bowel. There was a very thick interloop adhesion causing a complete obstruction in the mid jejunum. Procedure done: -Diagnostic laparoscopy -Extensive lysis of adhesions -Exploratory laparotomy -Small bowel resection -Primary repair of ventral hernia Specimens removed/disposition: Segment of small bowel Surgeon: Zurdo Howe MD [employer] Policy Analyst: FRANKIE OR Staff Estimated blood loss: 50 Complications: none apparent Brief History: 63-year-old female with small bowel obstruction who failed conservative management. We decided to proceed with exploration, all risk benefits of the operation were discussed with the patient family members as documented in my preop note. Procedure: Patient was brought into the OR, she was placed in a supine position. General anesthesia was given. The abdomen was prepped and draped in the usual sterile fashion. The abdomen was accessed via a left upper quadrant 5 mm Optiview t rocar, pneumoperitoneum was obtained and no evidence of visceral injury during entry was noted. Severe adhesions of the omentum to the anterior abdominal wall were noted, the hernia was not visible at this point due to the thick adhesions. 2 additional 5 mm trocars were placed in the left flank and left lower quadrant. With careful sharp dissection, blunt dissection and LigaSure I was able to take down the majority of adhesions from the omentum to the abdominal wall until they reach the hernia. The hernia at this point had completely reduced and only adhesions from the omentum to the hernia sac were noted. The omentum was completely taken down from the hernia sac. At this point I noticed adhesions to the omentum to the left lateral abdominal wall as well as to the small bowel at that level. I decided to put additional 3 trocars in the right upper quadrant right flank and right lower quadrant position to be able to evaluate this area. I was able to lyse the adhesions of the omentum to the abdominal wall as well as to the loop of small bowel on the left hemiabdomen without complications. There was also adhesions of the omentum to the ascending colon that were taken down with sharp dissection. I did then proceeded to run the bowel from the level of the terminal ileum. At the level of the mid jejunum a very thick adhesive band was noted to be kinking the small bowel causing it to be completely adhered to the root of the mesentery. I was able to carefully transect these adhesive bands with sharp dissection. This was noted to be the transition point between the distended proximal small bowel and the and distended distal small bowel. I was able to then run the bowel up to the level of the ligament of [place]. The previous surgical anastomosis on the jejunum was not to be adhered to the mesentery of the left lower quadrant. Since there was no evidence of obstruction at this point I decided not to distort these adhesions to prevent perforation. I reevaluated the area where the bowel was pink and the segment of the small bowel appeared to have questionable viability due to the significant compression caused by that adhesive band. At this point in my decision proceed with an intestinal resection. I decided to convert to an exploratory laparotomy to proceed with resection and primary hernia repair. The abdomen was opened in the midline laparotomy extending about 15 cm. Upon immediate entry to the abdomen a large hernia sac was noted, this was bluntly dissected and transected. I then proceeded to identify the area of interest in the small bowel, I then proceeded to do resection with a [id number], functional end-to-end anastomosis in an standard fashion using 100 mm blue low HELEN stapler. Once anastomosis was completed I closed the mesenteric defect with #3-0 Vicryl. I then also placed a reinforcement stitch with #3-0 Vicryl at the level of the crotch of the anastomosis. Any excess hernia sac was then excised from the fascial edges to allow for a clear area of closure. I then proceeded to primarily repair the patient's ventral hernia and closed the fascia of the abdomen using #1 looped PDS. After the fascia was completely closed I proceeded to irrigate the subcutaneous tissue. Hemostasis was achieved and local anesthesia was infiltrated. The wound was then closed in layers I used 2-0 Vicryl for the deep subcutaneous tissue #3-0 Vicryl for the superficial subcutaneous tissue and jonathan for the skin. Sterile dressing was applied. At the end of the procedure all counts were correct, the patient tolerated well the procedure was transferred to PACU in stable condition
[2024-09-17] MEDS: ondansetron 2 mg/ML SDV 2 mL 4 MG (16:33)
--- NOTE | 2024-09-17 16:50 | ANE.PACU2 ---
Inpatient post-anesthesia follow up: Airway intact: Yes Vital signs: Temperature 97.8 F Pulse Rate 73 Respiratory Rate 16 Blood Pressure 127/54 Pulse Oximetry 93 Oxygen Delivery Me thod Room Air Oxygen Flow Rate 2 Fraction of Inspir ed Oxygen Hydration adequate: Yes Nausea and vomiting: No Pain level: 1 Mental status: Baseline
--- NOTE | 2024-09-17 17:11 | PC.NURSE ---
Patient returned from surgery to CSU at 1705.
[2024-09-17 17:33] LABS: Glucose Point of Care 145 mg/dL (70-110)
--- NOTE | 2024-09-17 17:51 | PC.NURSE ---
This nurse called Dr Euceda and asked about restarting the heparin drip and her NPO status for the night. Dr Rome instructed nurse to hold the heparin until tomorrow morning, and keep her strict NPO for tonight as well.
[2024-09-17 20:54] LABS: Glucose Point of Care 188 mg/dL (70-110)
[2024-09-18] VITALS (15 sets, daily range): BP systolic 105–144; BP diastolic 50–77; PULSE 67–83; RESP 12–25; TEMP 36.3–36.9; O2SAT 93–99
[2024-09-18] MEDS: HYDROMORPHONE HCL 0.5 MG/0.5 ML INJ 0.4 MG IVP ×3 (00:48→19:55)
[2024-09-18] MEDS: metoprolol tartrate 1 mg/1 mL SDV 5 mL 5 MG IVP ×6 (00:49→20:49)
[2024-09-18] MEDS: ipratropium 0.5 mg/2.5 mL Neb INHALATION ×4 (01:25→19:33)
[2024-09-18] MEDS: levalbuterol 0.63 mg/3 mL Neb INHALATION ×4 (01:25→19:33)
[2024-09-18 03:31] LABS: Basophils % 0.4 %; Eosinophils # 0.1 10^3/uL (0.0-0.8); Eosinophils % 0.9 %; Lymphocytes # 1.9 10^3/uL (0.8-4.8); Mean Corpuscular Hemoglobin 27.3 pg (27-33); Mean Corpuscular Volume 90.9 fl (85-98); Mean Platelet Volume 9.9 fL (7.4-10.4); Monocytes # 0.9 10^3/uL (0.2-0.9); Monocytes % 8.6 %; Neutrophils % 71.5 %; Nucleated Red Blood Cells % 0 %; Platelet Count 307 10^3/cmm (157-399); Red Blood Count 3.19 10^6/uL (3.85-5.65); Red Cell Distribution Width 14.9 % (12.1-15.1); White Blood Count 10.47 10^3/uL (3.29-11.43)
[2024-09-18 03:52] LABS: Alanine Aminotransferase 8 U/L (0-33); Albumin Level 3.2 g/dL (3.5-5.2); Alkaline Phosphatase 68 U/L (35-105); Aspartate Amino Transferase 13 U/L (0-32); Blood Urea Nitrogen 38 mg/dL (8-23); Calcium 8.8 mg/dL (8.5-10.5); Carbon Dioxide 25 mmol/L (22-29); Chloride 105 mmol/L (98-107); Glomerular Filtration Rate 38.2 mL/min (90-130); Glucose 142 mg/dL (65-115); Osmolality Calculated 317 mOsm/kg (285-295); Sodium 148 mmol/L (136-145); Total Bilirubin 0.2 mg/dL (0.15-1.2); Total Protein 6.2 g/dL (6.6-8.7)
[2024-09-18 03:59] LABS: Anion Gap 22.2 (5-19); Potassium 4.2 mmol/L (3.5-5.1)
[2024-09-18] MEDS: acetaminophen 1,000 MG/100 ML PIGGYBACK 400 MG IV ×2 (04:24→13:20)
[2024-09-18 05:03] LABS: Glucose Point of Care 146 mg/dL (70-110)
--- NOTE | 2024-09-18 06:20 | PC.NURSE ---
2109 - Notified Dr. Ramírez that patient has BG of 188 and is suppose to geyt 8 units. Pt is strict NPO. Recieved orders to hold 618- Notified Dr. Ramírez that patient has 30 units of lantus with BG of 161. Recieved orders to hold.
[2024-09-18 06:23] LABS: Glucose Point of Care 161 mg/dL (70-110)
--- NOTE | 2024-09-18 08:45 | P.PN_ITS ---
Subjective 2 Subjective: She is postoperative day 1 status post diagnostic laparoscopy with extensive lysis of adhesions, explained [place] laparotomy with small bowel resection and primary repair of ventral hernia. Doing well overnight vital signs have been stable and she is in good spirits once some ice chips. Vitals/I&O/Wt Last Vital Signs Temp 97.8 F 09/18/24 07:28 Pulse 73 09/18/24 08:34 Resp 16 09/18/24 08:34 BP 127/54 09/18/24 07:28 Pulse Ox 93 09/18/24 08:34 O2 Del Method Room Air 09/18/24 08:34 O2 Flow Rate 2 09/18/24 04:23 09/17/24 09/18/24 09/18/24 22:59 06:59 14:59 Intake Total 200 / 200 248 / 448 1198.267 / 1198.267 Output Total 365 / 365 300 / 665 Balance -165 / -165 -52 / -217 1198.267 / 1198.267 Weight last 48 hrs Weight 122 lb 4.8 oz Weight 276 lb Weight 277 lb 12.519 oz Physical Exam 2 HENMT: OTHER: NG tube is in place, there was 600 cc of bilious output overnight. GI: OTHER: Abdomen is soft, appropriately tender, surgical incision is covered with a dressing is clean dry and intact. Data 09/18/24 02:51 09/18/24 02:51 Micro: Microbiology 09/12/24 21:11 Blood Culture - Final Blood NO GROWTH AFTER 5 DAYS 09/12/24 21:03 Blood Culture - Final Blood NO GROWTH AFTER 5 DAYS A&P Assessment and plan (1) Morbid obesity: (2) Abdominal wall hernia: (3) Small bowel obstruction: Plan Appropriate progression for the first postoperative day. I agree with allowing the patient to have some ice chips and p.o. meds. Will slowly advance diet in her case as she has a fresh intestinal anastomosis. I encouraged her to move around and get out of bed. She will attempt to do that today. Will provide incentive spirometer. Hemoglobin has remained stable and there is no evidence of bleeding at this time, I think we can proceed to restart anticoagulation as guided by medical team and cardiology this afternoon once it has been 24 hours from surgical intervention. PDMP PDMP Reviewed: Not Reviewed Attestations 2 Medical Necessity Statement*: Per medical team Coding Level of Care Code Acute Code for Chg Fwd Diagnoses Morbid obesity E66.01 Abdominal wall hernia K43.9 Small bowel obstruction K56.609
--- NOTE | 2024-09-18 08:55 | PC.SOCIAL ---
IMM Update Pg.2 of IMM Updated, copy in chart initialed/dated/timed. Copy provided at bedside.
--- NOTE | 2024-09-18 10:42 | P.PN_ITS ---
<Statement entered by Renay Quarles MD - 09/20/24 07:20> Patient was evaluated and cared for in conjunction with an advanced practice practitioner. I personally examined the patient and reviewed the chart and all pertinent data including imaging, telemetry, and laboratory results. I discussed the patient in detail with the advanced practice practitioner. Please see their note for complete H&P testing result and agreed upon plan of care for the patient. Status post surgery tolerated procedure well GENERAL: Patient is alert, awake and oriented x3. Sitting in the HEART: Regular S1 and S2. No murmur, rub or gallop. LUNGS: Clear to auscultate bilaterally. CENTRAL NERVOUS SYSTEM: Grossly nonfocal. EXTREMITIES: Lower extremities with out edema bilaterally. History of coronary disease status post stent antiplatelet was held due to bowel obstruction surgery Status post bowel surgery Hypertension if okay with the surgery. And I can be restarted along with 81 mg of aspirin. In order to restart Brilinta it should be loaded at 180 mg on day 1 followed by 90 mg p.o. twice daily from day 2, aspirin will stay at 81 mg p.o. daily. Continue to monitor for any bleeding. Subjective 2 Subjective: Patient doing well today. No complaints. She is s/p bowel resection. Vitals/I&O/Wt Last Vital Signs Temp 97.8 F 09/18/24 07:28 Pulse 73 09/18/24 08:34 Resp 16 09/18/24 08:34 BP 127/54 09/18/24 07:28 Pulse Ox 93 09/18/24 08:34 O2 Del Method Room Air 09/18/24 08:34 O2 Flow Rate 2 09/18/24 04:23 09/17/24 09/18/24 09/18/24 22:59 06:59 14:59 Intake Total 200 / 200 248 / 448 1198.267 / 1198.267 Output Total 365 / 365 300 / 665 Balance -165 / -165 -52 / -217 1198.267 / 1198.267 Weight last 48 hrs Weight 122 lb 4.8 oz Weight 276 lb Weight 277 lb 12.519 oz Physical Exam 2 Narrative: General: No apparent distress, healthy appearing, well nourished HENMT: NG tube in place Muskuloskeletal: Full ROM Lymphatic: no lymphedema noted Respiratory: Normal respiratory effort, clear to auscultation bilaterally throughout all lung [place], no use of accessory muscles Cardio: No JVD, regular rate, regular rhythm, S1 S2 normal, no murmurs, peripheral pulses 2+ radial palpated bilaterally GI: NG tube in place Extremities: Full ROM, normal, normal capillary refill, no cyanosis, 2+ nonpitting edema bilateral feet and ankles Neuro: Alert and oriented x4, no focal motor deficits Psych: Affect normal, denies suicidal ideation, mental status grossly normal Skin: No rashes or lesions noted, no wounds Data 09/18/24 02:51 09/18/24 02:51 Micro: Microbiology 09/12/24 21:11 Blood Culture - Final Blood NO GROWTH AFTER 5 DAYS 09/12/24 21:03 Blood Culture - Final Blood NO GROWTH AFTER 5 DAYS A&P Assessment and plan (1) CAD (coronary artery disease): Qualifiers: Coronary Disease-Associated Artery/Lesion type: [place] artery [place] vs. transplanted heart: [place] heart Associated angina: angina presence unspecified Qualified Code(s): I25.10 - Atherosclerotic heart disease of [place] coronary artery without angina pectoris (2) Chest pain: Qualifiers: Chest pain type: unspecified Qualified Code(s): R07.9 - Chest pain, unspecified (3) Elevated troponin: (4) CHF (congestive heart failure): Qualifiers: Heart failure chronicity: acute on chronic Heart failure type: systolic Qualified Code(s): I50.23 - Acute on chronic systolic (congestive) heart failure (5) Hypertensive urgency: Plan Recommend restarting Brilinta at earliest time possible when ok with surgery. She will need to be loaded with 180 mg PO x1, then regular 90 mg BID thereafter. For now, she is being placed on a heparin drip. PDMP PDMP Reviewed: Not Reviewed Attestations 2 Medical Necessity Statement*: Deferred to primary. Coding Level of Care Code Acute Code for [facility] Fwd Diagnoses Coronary artery disease involving [place] coronary artery of [place] heart, angina presence unspecified I25.10 Coronary Disease-Associated Artery/Lesion type: [place] artery [place] vs. transplanted heart: [place] heart Associated angina: angina presence unspecified Chest pain, unspecified type R07.9 Chest pain type: unspecified Elevated troponin R77.8 Acute on chronic systolic congestive heart failure I50.23 Heart failure chronicity: acute on chronic Heart failure type: systolic Hypertensive urgency I16.0
[2024-09-18 11:51] LABS: Glucose Point of Care 161 mg/dL (70-110)
--- NOTE | 2024-09-18 15:08 | PC.NURSE ---
Patient refusing PO medications today. She says she will try tomorrow. Dr Howe was present this morning.
[2024-09-18 16:32] LABS: Glucose Point of Care 144 mg/dL (70-110)
--- NOTE | 2024-09-18 19:50 | PM.PN ---
Subjective Subjective: Patient has been stable postoperatively. No overnight events. Did discuss with surgery okay to start brilinta tonight Vitals/I&O/Wt Last Vital Signs Temp 97.6 F 09/18/24 19:34 Pulse 83 09/18/24 19:40 Resp 22 H 09/18/24 19:34 BP 105/73 09/18/24 19:34 Pulse Ox 97 09/18/24 19:36 O2 Del Method Nasal Cannula 09/18/24 19:36 O2 Flow Rate 2 09/18/24 19:36 09/18/24 09/18/24 09/18/24 06:59 14:59 22:59 Intake Total 248 / 448 1298.267 / 1298.267 Output Total 300 / 665 1050 / 1050 Balance -52 / -217 1298.267 / 1298.267 -1050 / 248.267 Weight last 48 hrs Weight 55.474 kg Weight 125.191 kg Physical Exam Narrative: General: No acute distress, AO x3, NG tube in place HEENT: PERRLA, pupils bilaterally equal and reactive Chest: Bilateral bronchial breath sounds over lung [place], decreased air entry bilaterally in lower zone, fine crackles present up to mid lungs CVS: S1-S2 regular, no murmurs, no tachycardia, no gallops, no rubs Abdomen: Soft, nontender, no organomegaly, bowel sounds sluggish Neuro: No focal deficits, no facial deformity, AO x3, power 5/5 in all limbs Extremity: 2+ pitting edema up to mid thigh bilaterally Data 09/18/24 02:51 09/18/24 02:51 Micro: Microbiology 09/12/24 21:11 Blood Culture - Final Blood NO GROWTH AFTER 5 DAYS 09/12/24 21:03 Blood Culture - Final Blood NO GROWTH AFTER 5 DAYS A&P Assessment and plan (1) Small bowel obstruction: - Appreciated on CT abdomen pelvis. - Failed Gastrograffin on 09/15 - NG in place to low intermitttent suction - POST OP day 1 Plan: 1. NG to remain in place 2. Surgery ok for PO meds 3. Surgery oked resuming brilinta (2) Non-ST elevation [place] (NSTEMI): - History of coronary artery disease (CAD) with recent in-stent restenosis to mid right coronary artery (RCA) and left circumflex artery (LCx). Presenting with chest pain and difficulty breathing. Baseline troponin elevated Plan: - No Chest pain today - Cardiology on board - D/c Heparin drip - On aspirin 300 CT Changed to 81 mg PO daily - Brilinta 180 mg PO x 1 today - 90 mg PO BID after - Echo reviewed - Surgery ok [facility] restarting brilinta (3) Hypertensive urgency: Stable (4) CHF (congestive heart failure): - Acute on chronic systolic heart failure. Last echocardiogram from April 2024 shows an ejection fraction (EF) of 40% with grade 1 diastolic dysfunction, mild left ventricular hypertrophy (LVH), moderate mitral regurgitation (MR). - Negative 8.6L balance Plan: 1. Echocardiogram as above. 2. Fluid restriction to less than 1500 mL. 3. Patient is euvolemic. Hold off on further Lasix 4. Will assess daily for diuretics needs Qualifiers: Heart failure chronicity: acute on chronic Heart failure type: systolic Qualified Code(s): I50.23 - Acute on chronic systolic (congestive) heart failure (5) Leukocytosis: Has been on meropenum since the Cultures all have been negative NO leukocytosis Will Discontinue Meropenum for now (6) CKD (chronic kidney disease): Baseline creatinine of 1.3-1.6. As high as 1.9 in last 1 year. Creatinine stable at 1.2 today. stable, slight increase in sodium to 147 BMP in am Qualifiers: Chronic kidney disease stage: stage 3 (moderate) (7) CAD (coronary artery disease): management as above Qualifiers: Coronary Disease-Associated Artery/Lesion type: [place] artery [place] vs. transplanted heart: [place] heart Associated angina: angina presence unspecified Qualified Code(s): I25.10 - Atherosclerotic heart disease of [place] coronary artery without angina pectoris (8) DM type 2 (diabetes mellitus, type 2): Continue with home dose of Lantus. Sliding scale at high dose protocol. A1c 7.6. Qualifiers: Diabetes mellitus intermediate insulin use: without intermediate use Diabetes mellitus complication status: without complication Qualified Code(s): E11.9 - Type 2 diabetes mellitus without complications (9) Morbid obesity: (10) Goals of care, counseling/discussion: (11) Chest pain: Qualifiers: Chest pain type: unspecified Qualified Code(s): R07.9 - Chest pain, unspecified (12) Fecal impaction in rectum: Seen on CT abdomen/pelvis. Disimpacted by surgical team. Plan As noted above - Heparin stopped - Surgery oked brilinta - Loading dose tonight - Asprin change to 81 oral - Appreciate cardiology input - Monitor off abx - Post op care PDMP PDMP Reviewed: Not Reviewed Attestations Medical Necessity Statement*: Requires further hospitalization for management of small bowel obstruction undergoing conservative treatment, non-ST elevation [place] in a patient with recent history of in-stent restenosis Coding Level of Care Code Acute Code for Chg Fwd Diagnoses Small bowel obstruction K56.609 Non-ST elevation [place] (NSTEMI) I21.4 Hypertensive urgency I16.0 Acute on chronic systolic congestive heart failure I50.23 Heart failure chronicity: acute on chronic Heart failure type: systolic Leukocytosis D72.829 CKD (chronic kidney disease) N18.9 Chronic kidney disease stage: stage 3 (moderate) Coronary artery disease involving [place] coronary artery of [place] heart, angina presence unspecified I25.10 Coronary Disease-Associated Artery/Lesion type: [place] artery [place] vs. 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
[2024-09-18 20:20] LABS: Glucose Point of Care 154 mg/dL (70-110)
--- NOTE | 2024-09-18 21:41 | PC.NURSE ---
Provider is updated that she has a one time order for brilinta 180mg tonight. She is refusing all PO meds today. She told me she would take it in the morning.
--- NOTE | 2024-09-18 22:42 | PC.NURSE ---
Provider is updated that she is requesting something to help her sleep - she has not slept for 2 days. She gets trazodone 50mg PO bedtime at the [facility]. Order is okay'd and place.
[2024-09-18] MEDS: trazodone 50 mg Tablet PO (23:07)
[2024-09-19] VITALS (14 sets, daily range): BP systolic 99–159; BP diastolic 46–74; PULSE 65–78; RESP 12–21; TEMP 36.4–37.1; O2SAT 89–100
[2024-09-19] MEDS: HYDROMORPHONE HCL 0.5 MG/0.5 ML INJ 0.4 MG IVP ×2 (00:16→17:56)
[2024-09-19] MEDS: metoprolol tartrate 1 mg/1 mL SDV 5 mL 5 MG IVP ×6 (01:25→21:56)
[2024-09-19 01:46] LABS: Glucose Point of Care 145 mg/dL (70-110)
--- NOTE | 2024-09-19 01:52 | PC.NURSE ---
Provider is updated that Ms Bridges needs something for anxiety. Her xanax 0.5mg is on hold right now. She told me that she will not take anything PO because it is too hard to get down with the NG tube. Can I have an order for something IV please? Provider ordered, Ativan 1 mg iv. Order placed.
[2024-09-19] MEDS: LORazepam 2 mg/mL INJ 1 mL 1 MG IVP (02:23)
[2024-09-19] MEDS: ipratropium 0.5 mg/2.5 mL Neb INHALATION ×4 (03:15→20:37)
[2024-09-19] MEDS: levalbuterol 0.63 mg/3 mL Neb INHALATION ×4 (03:15→20:37)
[2024-09-19 03:48] LABS: Basophils % 0.4 %; Eosinophils # 0.5 10^3/uL (0.0-0.8); Eosinophils % 4.8 %; Hematocrit 29.3 % (36-47); Lymphocytes # 1.9 10^3/uL (0.8-4.8); Lymphocytes % 16.7 %; Mean Corpuscular Hemoglobin 27.2 pg (27-33); Mean Corpuscular Volume 90.4 fl (85-98); Mean Platelet Volume 9.8 fL (7.4-10.4); Monocytes # 0.9 10^3/uL (0.2-0.9); Monocytes % 7.7 %; Neutrophils # 7.92 10^3/uL (1.8-7.7); Neutrophils % 69.8 %; Nucleated Red Blood Cells % 0 %; Platelet Count 301 10^3/cmm (157-399); Red Blood Count 3.24 10^6/uL (3.85-5.65); Red Cell Distribution Width 15.1 % (12.1-15.1); White Blood Count 11.33 10^3/uL (3.29-11.43)
[2024-09-19 04:17] LABS: Anion Gap 19.3 (5-19); Blood Urea Nitrogen 37 mg/dL (8-23); Calcium 8.8 mg/dL (8.5-10.5); Carbon Dioxide 27 mmol/L (22-29); Chloride 105 mmol/L (98-107); Glomerular Filtration Rate 38.2 mL/min (90-130); Glucose 157 mg/dL (65-115); Osmolality Calculated 316 mOsm/kg (285-295); Potassium 4.3 mmol/L (3.5-5.1); Sodium 147 mmol/L (136-145)
[2024-09-19 06:28] LABS: Glucose Point of Care 141 mg/dL (70-110)
[2024-09-19] MEDS: buPROPion SR (12 HR) 100 mg Tablet 200 MG PO (08:40)
[2024-09-19] MEDS: ranolazine (12HR) 500 mg Tablet PO (08:41)
[2024-09-19] MEDS: carvedilol 6.25 mg Tablet PO (08:41)
[2024-09-19] MEDS: aspirin 81 mg Chew Tablet PO (08:41)
--- NOTE | 2024-09-19 10:43 | PC.NURSE ---
Addendum entered by Calli Smyth RN 09/19/24 10:55: received okay from Dr Howe to leave out for now. May give small amounts of water and ice chips. May have to replace if she begins to vomit. Dr Nash to come see patient. Original Note: Patient pulled out NG tube during sleep. Patient refusing to have replaced. Waiting for response for Dr Howe or Dr Nash.
--- NOTE | 2024-09-19 11:01 | PM.PN ---
Subjective Subjective: Patient is sleeping on my exam. Overall she looks stable. Brilinta has been restarted. She was loaded yesterday with 180 mg per Vitals/I&O/Wt Last Vital Signs Temp 98.8 F 09/19/24 07:28 Pulse 69 09/19/24 07:53 Resp 18 09/19/24 07:53 BP 154/72 09/19/24 07:28 Pulse Ox 98 09/19/24 07:53 O2 Del Method Nasal Cannula 09/19/24 07:53 O2 Flow Rate 2 09/19/24 07:53 09/18/24 09/19/24 09/19/24 22:59 06:59 14:59 Output Total 1050 / 1050 1300 / 2350 Balance -1050 / 248.267 -1300 / -1051.733 Weight last 48 hrs Weight 275 lb 9.245 oz Weight 275 lb 9.245 oz Weight 122 lb 4.8 oz Physical Exam Narrative: General: No apparent distress, healthy appearing, well nourished HENMT: NG tube in place Muskuloskeletal: Full ROM Lymphatic: no lymphedema noted Respiratory: Normal respiratory effort, clear to auscultation bilaterally throughout all lung [place], no use of accessory muscles Cardio: No JVD, regular rate, regular rhythm, S1 S2 normal, no murmurs, peripheral pulses 2+ radial palpated bilaterally GI: NG tube in place Extremities: Full ROM, normal, normal capillary refill, no cyanosis, 2+ nonpitting edema bilateral feet and ankles Neuro: Alert and oriented x4, no focal motor deficits Psych: Affect normal, denies suicidal ideation, mental status grossly normal Skin: No rashes or lesions noted, no wounds Data 09/19/24 03:20 09/19/24 03:20 A&P Assessment and plan (1) CAD (coronary artery disease): Qualifiers: Coronary Disease-Associated Artery/Lesion type: [place] artery [place] vs. transplanted heart: [place] heart Associated angina: angina presence unspecified Qualified Code(s): I25.10 - Atherosclerotic heart disease of [place] coronary artery without angina pectoris (2) Chest pain: Qualifiers: Chest pain type: unspecified Qualified Code(s): R07.9 - Chest pain, unspecified (3) Elevated troponin: (4) CHF (congestive heart failure): Qualifiers: Heart failure chronicity: acute on chronic Heart failure type: systolic Qualified Code(s): I50.23 - Acute on chronic systolic (congestive) heart failure (5) Hypertensive urgency: Plan Recommend continue 90 mg Brilinta twice daily. Continue medical management. At this time, cardiology will sign off of this patient. As always, if our assistance is needed in the future, please consult us. Thank you for allowing us to take care of this very pleasant patient. PDMP PDMP Reviewed: Not Reviewed Attestations Medical Necessity Statement*: Deferred to primary. Coding Level of Care Code Acute Code for g Fwd Diagnoses Coronary artery disease involving [place] coronary artery of [place] heart, angina presence unspecified I25.10 Coronary Disease-Associated Artery/Lesion type: [place] artery [place] vs. transplanted heart: [place] heart Associated angina: angina presence unspecified Chest pain, unspecified type R07.9 Chest pain type: unspecified Elevated troponin R77.8 Acute on chronic systolic congestive heart failure I50.23 Heart failure chronicity: acute on chronic Heart failure type: systolic Hypertensive urgency I16.0
[2024-09-19 12:02] LABS: Glucose Point of Care 238 mg/dL (70-110)
--- NOTE | 2024-09-19 13:40 | P.PN_ITS ---
Subjective 2 Subjective: Today's postoperative day 2 status post exploratory laparotomy bowel resection and primary repair of ventral hernia for adhesive small bowel obstruction. She is doing well, this morning patient removed her NG tube. Has not had any nausea or vomit. Denies passing gas has been burping. No significant abdominal pain. Vitals/I&O/Wt Last Vital Signs Temp 98.6 F 09/19/24 12:00 Pulse 74 09/19/24 12:00 Resp 12 09/19/24 12:00 BP 99/55 09/19/24 12:00 Pulse Ox 97 09/19/24 12:00 O2 Del Method Nasal Cannula 09/19/24 12:00 O2 Flow Rate 2 09/19/24 12:00 09/18/24 09/19/24 09/19/24 22:59 06:59 14:59 Output Total 1050 / 1050 1300 / 2350 Balance -1050 / 248.267 -1300 / -1051.733 Weight last 48 hrs Weight 275 lb 9.245 oz Weight 275 lb 9.245 oz Weight 122 lb 4.8 oz Physical Exam 2 GI: OTHER: Abdomen is soft, appropriately tender to palpation. There is good bowel sounds in all quadrants. Surgical incision is healing well. Data 09/19/24 03:20 09/19/24 03:20 A&P Assessment and plan (1) Abdominal wall hernia: (2) Small bowel obstruction: (3) Fecal impaction in rectum: (4) GERD (gastroesophageal reflux disease): Plan Patient showing adequate progression over the last 24 hours. Her vital signs are stable, laboratory workup is also stable. Has been drinking some ice chips and small sips of water and tolerating. Has not passed gas yet. She is in good spirits and is hungry. If there is good progression over the next 24 hours I will plan to give her clears tomorrow. Abdominal examination is completely benign and she has good bowel sounds which were not present before surgery. Will continue current management, will encourage her to get out of bed during this afternoon and we have given her an incentive spirometer. PDMP PDMP Reviewed: Not Reviewed Attestations 2 Medical Necessity Statement*: Will require at least 48 to 72 hours of hospital stay for postoperative management of her major abdominal surgery and to manage multiple comorbidities. Coding Level of Care Code Acute Code for Chg Fwd Diagnoses Abdominal wall hernia K43.9 Small bowel obstruction K56.609 Fecal impaction in rectum K56.41 GERD (gastroesophageal reflux disease) K21.9
--- NOTE | 2024-09-19 16:22 | PC.NURSE ---
Patient out of bed to chair using [id number] x2 assist. patient very grateful and tolerated well. Patient denies pain or needs. Incentive spirometry at bedside. Will continue to monitor
[2024-09-19 17:43] LABS: Glucose Point of Care 242 mg/dL (70-110)
--- NOTE | 2024-09-19 18:16 | PC.NURSE ---
Patient refuses to take oral medications unless crushed in ice cream.
[2024-09-19 20:47] LABS: Glucose Point of Care 203 mg/dL (70-110)
--- NOTE | 2024-09-19 21:01 | P.PN_ITS ---
Subjective 2 Subjective: paitent pulled NG tube today Dw surgery ok to leave out no other overnight event. Vitals/I&O/Wt Last Vital Signs Temp 98.4 F 09/19/24 19:37 Pulse 65 09/19/24 20:48 Resp 18 09/19/24 20:48 BP 156/74 09/19/24 19:37 Pulse Ox 100 09/19/24 20:48 O2 Del Method Nasal Cannula 09/19/24 20:48 O2 Flow Rate 2 09/19/24 16:00 09/19/24 09/19/24 09/19/24 06:59 14:59 22:59 Output Total 1300 / 2350 200 / 200 Balance -1300 / -1051.733 -200 / -200 Weight last 48 hrs Weight 125 kg Weight 125 kg Weight 55.474 kg Physical Exam 2 Narrative: General: No acute distress, AO x3, NG tube in place at the time of my eval HEENT: PERRLA, pupils bilaterally equal and reactive Chest: Bilateral bronchial breath sounds over lung [place], decreased air entry bilaterally in lower zone, fine crackles present up to mid lungs CVS: S1-S2 regular, no murmurs, no tachycardia, no gallops, no rubs Abdomen: Soft, nontender, no organomegaly, bowel sounds sluggish Neuro: No focal deficits, no facial deformity, AO x3, power 5/5 in all limbs Extremity: 2+ pitting edema up to mid thigh bilaterally Data 09/19/24 03:20 09/19/24 03:20 A&P Assessment and plan (1) Small bowel obstruction: - Appreciated on CT abdomen pelvis. - Failed Gastrograffin on 09/15 - POST OP day 2 - Patient pulled out NG - Refused replacement - surgery aware Plan: 1. Monitor for nausea/vomiting - if recurrance may need to replace NG (2) Non-ST elevation [place] (NSTEMI): - History of coronary artery disease (CAD) with recent in-stent restenosis to mid right coronary artery (RCA) and left circumflex artery (LCx). Presenting with chest pain and difficulty breathing. Baseline troponin elevated Plan: - No Chest pain today - Cardiology on board - D/c Heparin drip - On aspirin 81 mg PO daily - Brilinta 180 mg PO x 1 on - 90 mg PO BID today - Echo reviewed - Surgery ok wth restarting brilinta - Stable from cardiac standpoint. (3) Hypertensive urgency: Stable (4) CHF (congestive heart failure): - Acute on chronic systolic heart failure. Last echocardiogram from April 2024 shows an ejection fraction (EF) of 40% with grade 1 diastolic dysfunction, mild left ventricular hypertrophy (LVH), moderate mitral regurgitation (MR). - Negative 8.6L balance Plan: 1. Echocardiogram as above. 2. Patient is euvolemic. Hold off on further Lasix 3. Will assess daily for diuretics needs Qualifiers: Heart failure chronicity: acute on chronic Heart failure type: systolic Qualified Code(s): I50.23 - Acute on chronic systolic (congestive) heart failure (5) Leukocytosis: Has been on meropenum since the Cultures all have been negative NO leukocytosis Will Discontinue Meropenum for now (6) CKD (chronic kidney disease): Baseline creatinine of 1.3-1.6. As high as 1.9 in last 1 year. Creatinine stable at 1.2 today. stable, slight increase in sodium to 147 BMP in am Qualifiers: Chronic kidney disease stage: stage 3 (moderate) (7) CAD (coronary artery disease): management as above Qualifiers: Coronary Disease-Associated Artery/Lesion type: [place] artery [place] vs. transplanted heart: [place] heart Associated angina: angina presence unspecified Qualified Code(s): I25.10 - Atherosclerotic heart disease of [place] coronary artery without angina pectoris (8) DM type 2 (diabetes mellitus, type 2): Continue with home dose of Lantus. Sliding scale at high dose protocol. A1c 7.6. Qualifiers: Diabetes mellitus care home insulin use: without long[place] foreman use Diabetes mellitus complication status: without complication Qualified Code(s): E11.9 - Type 2 diabetes mellitus without complications (9) Morbid obesity: (10) Goals of care, counseling/discussion: (11) Chest pain: Qualifiers: Chest pain type: unspecified Qualified Code(s): R07.9 - Chest pain, unspecified (12) Fecal impaction in rectum: Seen on CT abdomen/pelvis. Disimpacted by surgical team. Plan As noted above - Continue brinta - Possibly advance diet tomorrow - Asprin 81 mg po daily - Appreciate cardiology input - Monitor off abx - Post op care PDMP PDMP Reviewed: Not Reviewed Attestations 2 Medical Necessity Statement*: Requires further hospitalization for management of small bowel obstruction undergoing conservative treatment, non-ST elevation [place] in a patient with recent history of in-stent restenosis Coding Level of Care Code Acute Code for Chg Fwd Diagnoses Small bowel obstruction K56.609 Non-ST elevation [place] (NSTEMI) I21.4 Hypertensive urgency I16.0 Acute on chronic systolic congestive heart failure I50.23 Heart failure chronicity: acute on chronic Heart failure type: systolic Leukocytosis D72.829 CKD (chronic kidney disease) N18.9 Chronic kidney disease stage: stage 3 (moderate) Coronary artery disease involving [place] coronary artery of [place] heart, angina presence unspecified I25.10 Coronary Disease-Associated Artery/Lesion type: [place] artery [place] vs. transplanted heart: [place] heart Associated angina: angina presence unspecified Type 2 diabetes mellitus without complication, without long-term current use of insulin E11.9 Diabetes mellitus longwall foreman insulin use: without long[place] foreman use Diabetes mellitus complication status: without complication Morbid obesity E66.01 Goals of care, counseling/discussion Z71.89 Chest pain, unspecified type R07.9 Chest pain type: unspecified Fecal impaction in rectum K56.41
[2024-09-19] MEDS: ticagrelor 90 mg Tablet PO (21:56)
[2024-09-20] VITALS (12 sets, daily range): BP systolic 122–158; BP diastolic 39–57; PULSE 61–69; RESP 13–23; TEMP 36.4–36.7; O2SAT 96–100; BMI 51.1
[2024-09-20] MEDS: metoprolol tartrate 1 mg/1 mL SDV 5 mL 5 MG IVP ×6 (01:24→21:12)
[2024-09-20] MEDS: levalbuterol 0.63 mg/3 mL Neb INHALATION ×3 (02:26→21:42)
[2024-09-20] MEDS: ipratropium 0.5 mg/2.5 mL Neb INHALATION ×3 (02:26→21:43)
[2024-09-20 03:59] LABS: Basophils # 0.1 10^3/uL (0.0-0.1); Basophils % 0.6 %; Eosinophils # 1.2 10^3/uL (0.0-0.8); Eosinophils % 10.9 %; Hematocrit 29.8 % (36-47); Lymphocytes # 2.8 10^3/uL (0.8-4.8); Lymphocytes % 26.1 %; Mean Corpuscular HGB Conc 30.5 g/dL (30-55); Mean Corpuscular Hemoglobin 27.3 pg (27-33); Mean Corpuscular Volume 89.5 fl (85-98); Mean Platelet Volume 9.7 fL (7.4-10.4); Monocytes # 0.9 10^3/uL (0.2-0.9); Monocytes % 8.3 %; Neutrophils % 53.2 %; Nucleated Red Blood Cells % 0 %; Platelet Count 325 10^3/cmm (157-399); Red Blood Count 3.33 10^6/uL (3.85-5.65); White Blood Count 10.54 10^3/uL (3.29-11.43)
[2024-09-20] MEDS: HYDROMORPHONE HCL 0.5 MG/0.5 ML INJ 0.4 MG IVP ×4 (04:15→21:10)
[2024-09-20 04:24] LABS: Alanine Aminotransferase 6 U/L (0-33); Albumin Level 3.1 g/dL (3.5-5.2); Alkaline Phosphatase 69 U/L (35-105); Anion Gap 16.7 (5-19); Aspartate Amino Transferase 8 U/L (0-32); Blood Urea Nitrogen 36 mg/dL (8-23); Calcium 8.9 mg/dL (8.5-10.5); Carbon Dioxide 28 mmol/L (22-29); Chloride 99 mmol/L (98-107); Globulin 3.1 g/dL (1.3-4.6); Glomerular Filtration Rate 35.3 mL/min (90-130); Glucose 183 mg/dL (65-115); Osmolality Calculated 303 mOsm/kg (285-295); Potassium 3.7 mmol/L (3.5-5.1); Sodium 140 mmol/L (136-145); Total Bilirubin 0.3 mg/dL (0.15-1.2); Total Protein 6.2 g/dL (6.6-8.7)
[2024-09-20 06:30] LABS: Glucose Point of Care 187 mg/dL (70-110)
--- NOTE | 2024-09-20 09:41 | P.PN_ITS ---
Subjective 2 Subjective: Today's postoperative day 3 status post laparotomy with bowel resection, lysis of additions and primary repair of ventral hernia for adhesive small bowel obstruction. Patient is doing okay. Over the last 24 hours she was able to pass gas 2 times. No significant abdominal pain or distention. She is hungry. Vitals/I&O/Wt Last Vital Signs Temp 97.5 F L 09/20/24 07:57 Pulse 64 09/20/24 08:46 Resp 18 09/20/24 08:46 BP 138/57 09/20/24 07:57 Pulse Ox 98 09/20/24 08:46 O2 Del Method Nasal Cannula 09/20/24 08:46 O2 Flow Rate 3 09/20/24 08:46 09/19/24 09/20/24 09/20/24 22:59 06:59 14:59 Output Total 200 / 200 300 / 500 Balance -200 / -200 -300 / -500 Weight last 48 hrs Weight 288 lb 12.889 oz Weight 275 lb 9.245 oz Weight 275 lb 9.245 oz Physical Exam 2 GI: OTHER: Abdominal examination is benign abdomen is soft appropriately tender surgical incision is healing well. There is good bowel sounds in 4 quadrants. I did a rectal exam due to patient history of fecal impaction and there is still some hard retained stool in the upper portion of the rectal vault. Despite attempted manual disimpaction this was impossible as the stool was hard and too distal for me to be able to grasp it. Data 09/20/24 03:24 09/20/24 03:24 A&P Assessment and plan (1) Morbid obesity: (2) Abdominal wall hernia: (3) Small bowel obstruction: (4) Fecal impaction in rectum: Plan Patient showing very good progression after surgery. She started passing gas has not had any nausea or vomit. Despite this she is still having significant distal fecal impaction. My main concern is if we are not able to resolve this fecal impaction she will not be able to show adequate progression after surgery. Fecal disimpaction was impossible this morning as the stool is too high and too hard to be able to easily be removed from the rectal vault. I will plan to give the patient another 24 hours to see if she is able to evacuate. We will start her on clear liquid diet today and encouraged her to get out of the bed and to move around to stimulate bowel motility. If by tomorrow she has not had a bowel movement I will probably give her a mineral oil enema as I do not want to start any p.o. laxatives due to the concern of a fresh intestinal anastomosis. Patient shows understanding agrees with the plan. PDMP PDMP Reviewed: Not Reviewed Attestations 2 Medical Necessity Statement*: Patient will require at least 22 hours of hospital stay for slow advancement of diet and to ensure resolution of fecal impaction Coding Level of Care Code Acute Code for Chg Fwd Diagnoses Morbid obesity E66.01 Abdominal wall hernia K43.9 Small bowel obstruction K56.609 Fecal impaction in rectum K56.41
--- NOTE | 2024-09-20 10:24 | PC.SOCIAL ---
IMM Update Pg 2 of IMM updated and reviewed; copy provided.
[2024-09-20 11:26] LABS: Glucose Point of Care 185 mg/dL (70-110)
--- NOTE | 2024-09-20 12:19 | P.PN_ITS ---
Subjective 2 Subjective: Patient was doing well she was seen with surgery. Stated that she had some flatulence. No bowel movement as of yet. Denied any nausea or vomiting overnight. No chest pain or shortness of breath. Vitals/I&O/Wt Last Vital Signs Temp 97.5 F L 09/20/24 07:57 Pulse 64 09/20/24 08:46 Resp 18 09/20/24 08:46 BP 138/57 09/20/24 07:57 Pulse Ox 98 09/20/24 08:46 O2 Del Method Nasal Cannula 09/20/24 08:46 O2 Flow Rate 3 09/20/24 08:46 09/19/24 09/20/24 09/20/24 22:59 06:59 14:59 Intake Total 220 / 220 Output Total 200 / 200 300 / 500 Balance -200 / -200 -300 / -500 220 / 220 Weight last 48 hrs Weight 131 kg Weight 125 kg Weight 125 kg Physical Exam 2 Narrative: General: No acute distress, AO x3, No apparent distress HEENT: PERRLA, pupils bilaterally equal and reactive Chest: Bilateral bronchial breath sounds over lung [place], decreased air entry bilaterally in lower zone, fine crackles present up to mid lungs CVS: S1-S2 regular, no murmurs, no tachycardia, no gallops, no rubs Abdomen: Soft, nontender, no organomegaly, bowel sounds sluggish Neuro: No focal deficits, no facial deformity, AO x3, power 5/5 in all limbs Extremity: 2+ pitting edema up to mid thigh bilaterally Data 09/21/24 04:43 09/21/24 04:43 A&P Assessment and plan (1) Small bowel obstruction: Discussed with general surgery today. Plan to advance diet to clear liquids. (2) Non-ST elevation NV (NSTEMI): - History of coronary artery disease (CAD) with recent in-stent restenosis to mid right coronary artery (RCA) and left circumflex artery (LCx). Presenting with chest pain and difficulty breathing. Baseline troponin elevated Plan: - No Chest pain today - Cardiology on board - D/c Heparin drip - On aspirin 81 mg PO daily - Continue Brilinta - Echo reviewed - Surgery ok wth restarting brilinta - Stable from cardiac standpoint. (3) Hypertensive urgency: Stable (4) CHF (congestive heart failure): - Acute on chronic systolic heart failure. Last echocardiogram from April 2024 shows an ejection fraction (EF) of 40% with grade 1 diastolic dysfunction, mild left ventricular hypertrophy (LVH), moderate mitral regurgitation (MR). - Negative 8.6L balance Plan: 1. Echocardiogram as above. 2. Patient is euvolemic. Hold off on further Lasix 3. Will assess daily for diuretics needs Qualifiers: Heart failure chronicity: acute on chronic Heart failure type: systolic Qualified Code(s): I50.23 - Acute on chronic systolic (congestive) heart failure (5) Leukocytosis: Has been on meropenum since the Cultures all have been negative NO leukocytosis Will Discontinue Meropenum for now (6) CKD (chronic kidney disease): Baseline creatinine of 1.3-1.6. As high as 1.9 in last 1 year. Creatinine stable at 1.2 today. stable, slight increase in sodium to 147 BMP in am Qualifiers: Chronic kidney disease stage: stage 3 (moderate) (7) CAD (coronary artery disease): management as above Qualifiers: Associated angina: angina presence unspecified Coronary Disease- Associated Artery/Lesion type: [place] artery [place] vs. transplanted heart: n ative heart Qualified Code(s): I25.10 - Atherosclerotic heart disease of [place] coronary artery without angina pectoris (8) DM type 2 (diabetes mellitus, type 2): Continue with home dose of Lantus. Sliding scale at high dose protocol. A1c 7.6. Qualifiers: Diabetes mellitus complication status: without complication Diabetes mellitus assisted insulin use: without manager intermediate use Qualified Code(s): E11.9 - Type 2 diabetes mellitus without complications (9) Morbid obesity: (10) Goals of care, counseling/discussion: (11) Chest pain: Qualifiers: Chest pain type: unspecified Qualified Code(s): R07.9 - Chest pain, unspecified (12) Fecal impaction in rectum: Seen on CT abdomen/pelvis. Disimpacted by surgical team. Plan As noted above - Continue brinta - Possibly advance diet tomorrow - Asprin 81 mg po daily - Appreciate cardiology input - Monitor off abx - Post op care PDMP PDMP Reviewed: Not Reviewed Attestations 2 Medical Necessity Statement*: Ongoing management for small bowel obstruction Coding Level of Care Code Acute Code for Chg Fwd Diagnoses Small bowel obstruction K56.609 Non-ST elevation [place] (NSTEMI) I21.4 Hypertensive urgency I16.0 Acute on chronic systolic congestive heart failure I50.23 Heart failure chronicity: acute on chronic Heart failure type: systolic Leukocytosis D72.829 CKD (chronic kidney disease) N18.9 Chronic kidney disease stage: stage 3 (moderate) Coronary artery disease involving [place] coronary artery of [place] heart, angina presence unspecified I25.10 Associated angina: angina presence unspecified Coronary Disease-Associated Artery/Lesion type: [place] artery [place] vs. transplanted heart: [place] heart Type 2 diabetes mellitus without complication, without long-term current use of insulin E11.9 Diabetes mellitus complication status: without complication Diabetes mellitus manager intermediate insulin use: without assisted use Morbid obesity E66.01 Goals of care, counseling/discussion Z71.89 Chest pain, unspecified type R07.9 Chest pain type: unspecified Fecal impaction in rectum K56.41
[2024-09-20 16:38] LABS: Glucose Point of Care 244 mg/dL (70-110)
[2024-09-20] MEDS: insulin lispro 100 unit/1 mL SUBCUT ×2 (17:47→21:27)
[2024-09-20] MEDS: lanolin oint 7 gm 1 APPLIC TOPICAL (18:05)
[2024-09-20 21:17] LABS: Glucose Point of Care 212 mg/dL (70-110)
[2024-09-21] VITALS (12 sets, daily range): BP systolic 113–140; BP diastolic 41–90; PULSE 61–78; RESP 16–20; TEMP 36.1–36.8; O2SAT 97–100
[2024-09-21] MEDS: metoprolol tartrate 1 mg/1 mL SDV 5 mL 5 MG IVP ×2 (01:24→06:23)
[2024-09-21] MEDS: HYDROMORPHONE HCL 0.5 MG/0.5 ML INJ 0.4 MG IVP ×3 (01:25→16:21)
[2024-09-21] MEDS: levalbuterol 0.63 mg/3 mL Neb INHALATION ×2 (02:16→07:29)
[2024-09-21] MEDS: ipratropium 0.5 mg/2.5 mL Neb INHALATION ×2 (02:16→07:29)
[2024-09-21 05:19] LABS: Basophils % 0.4 %; Eosinophils % 12.7 %; Lymphocytes # 2.1 10^3/uL (0.8-4.8); Lymphocytes % 26.9 %; Mean Corpuscular HGB Conc 30.7 g/dL (30-55); Mean Corpuscular Hemoglobin 26.9 pg (27-33); Mean Corpuscular Volume 87.7 fl (85-98); Mean Platelet Volume 9.9 fL (7.4-10.4); Monocytes # 0.7 10^3/uL (0.2-0.9); Monocytes % 9.1 %; Neutrophils # 3.99 10^3/uL (1.8-7.7); Neutrophils % 50.3 %; Nucleated Red Blood Cells % 0 %; Platelet Count 250 10^3/cmm (157-399); Red Blood Count 3.08 10^6/uL (3.85-5.65); Red Cell Distribution Width 14.7 % (12.1-15.1); White Blood Count 7.93 10^3/uL (3.29-11.43)
[2024-09-21 05:36] LABS: Alanine Aminotransferase < 5 U/L (0-33); Albumin Level 2.6 g/dL (3.5-5.2); Alkaline Phosphatase 65 U/L (35-105); Anion Gap 12.6 (5-19); Aspartate Amino Transferase 8 U/L (0-32); Blood Urea Nitrogen 40 mg/dL (8-23); Calcium 8.6 mg/dL (8.5-10.5); Carbon Dioxide 28 mmol/L (22-29); Chloride 101 mmol/L (98-107); Glomerular Filtration Rate 38.2 mL/min (90-130); Glucose 97 mg/dL (65-115); Osmolality Calculated 296 mOsm/kg (285-295); Potassium 3.6 mmol/L (3.5-5.1); Sodium 138 mmol/L (136-145); Total Bilirubin 0.3 mg/dL (0.15-1.2); Total Protein 5.6 g/dL (6.6-8.7)
[2024-09-21 06:15] LABS: Glucose Point of Care 125 mg/dL (70-110)
[2024-09-21] MEDS: insulin glargine 100 units/1 mL 30 UNIT SUBCUT (06:26)
--- NOTE | 2024-09-21 08:19 | P.PN_ITS ---
Subjective 2 Subjective: This is a 63-year-old female who is status post laparoscopy lysis of additions exploratory laparotomy bowel resection and primary repair of ventral hernia. She is doing very well. Passing gas, had some smearing bowel movements but no solid component. No abdominal pain. Vitals/I&O/Wt Last Vital Signs Temp 98.2 F 09/21/24 04:00 Pulse 66 09/21/24 07:39 Resp 16 09/21/24 07:30 BP 140/90 09/21/24 04:00 Pulse Ox 99 09/21/24 07:30 O2 Del Method Nasal Cannula 09/21/24 07:30 O2 Flow Rate 3 09/21/24 07:30 09/20/24 09/21/24 09/21/24 22:59 06:59 14:59 Intake Total 300 / 520 Output Total 700 / 850 Balance -400 / -330 Weight last 48 hrs Weight 125 lb 14.4 oz Weight 288 lb 12.889 oz Physical Exam 2 GI: OTHER: Abdomen is appropriately tender, there is good bowel sounds on the surgical incisions healing well the dressing was replaced. I did a digital rectal examination this time stool had advance more into the rectal vault and I was able to remove a good amount of hard stool from the rectum. Data 09/21/24 04:43 09/21/24 04:43 A&P Assessment and plan (1) Small bowel obstruction: (2) Fecal impaction in rectum: (3) Obesity: (4) Abdominal wall hernia: Plan Patient showing good progression over the last 24 hours. Her vital signs are stable. Her laboratory workup is also stable. I will advance her to a full liquid diet today and continue to monitor. I will continue doing daily digital rectal examinations until I am sure that there is no more distal stool causing a possible impaction. Since we were able to remove good amount of stool with a digital rectal examination I will hold on the enema for today. If she is tolerating diet by tomorrow I will plan to advance her to a GI soft diet. At that point I might start her also on a mild laxative to start moving things along. Goal is to be able to transition her back to nursing facility by Monday. PDMP PDMP Reviewed: Not Reviewed Attestations 2 Medical Necessity Statement*: Patient will require at least 48 hours of hospital stay for continued management after surgery for small bowel obstruction. Coding Level of Care Code Acute Code for Chg Fwd Diagnoses Small bowel obstruction K56.609 Fecal impaction in rectum K56.41 Obesity E66.9 Abdominal wall hernia K43.9
[2024-09-21] MEDS: ticagrelor 90 mg Tablet PO ×2 (08:26→17:46)
[2024-09-21] MEDS: aspirin 81 mg Chew Tablet PO (08:27)
[2024-09-21] MEDS: ranolazine (12HR) 500 mg Tablet PO ×2 (08:27→17:37)
[2024-09-21] MEDS: buPROPion SR (12 HR) 100 mg Tablet 200 MG PO ×2 (08:27→17:37)
[2024-09-21] MEDS: carvedilol 6.25 mg Tablet PO ×2 (08:27→17:37)
[2024-09-21 11:18] LABS: Glucose Point of Care 161 mg/dL (70-110)
[2024-09-21] MEDS: insulin lispro 100 unit/1 mL SUBCUT ×3 (11:36→22:28)
[2024-09-21] MEDS: cloNIDine 0.3 mg/24 hr Patch 1 PATCH TRANSDERMA (11:40)
--- NOTE | 2024-09-21 14:57 | PM.PN ---
Subjective Subjective: 63-year-old female with a past medical history of coronary artery disease, type 2 diabetes mellitus, hypertension, [place] [facility] resident, wheelchair-bound, recent percutaneous coronary intervention for in-stent restenosis to mid right coronary artery, balloon angioplasty to distal left circumflex artery for in-stent restenosis in April 2024, congestive heart failure with ejection fraction of 41%, cerebrovascular accident, dyslipidemia, restless leg syndrome, and obstructive sleep apnea presents with chest pain and difficulty breathing on 09/12/2024. Her initial laboratory workup showed a WBC of 12.5, hemoglobin of 9.9, hematocrit of 31.2 and a platelet count of 302. D-dimer 2.29. Sodium 140, potassium 4.3, chloride 102, bicarb 27, BUN of 45 and a creatinine of 1.5. Her baseline creatinine is around 1.5. Iron level of 23, TIBC of 261 and percent saturation of 8.8. Her initial troponin T at baseline was 116. After 120 minutes this had increased to 122. Procalcitonin of 0.12. TSH of 3.99. Cardiology was consulted due to elevated troponin level. Repeat echocardiogram was attempted however this was a poor study. Grossly LV function appeared to be moderately reduced. Shortly after admission, the patient complained of abdominal pain for which a rapid response was called. Lactic acid was elevated. CT abdomen pelvis revealed a small bowel obstruction. NG tube was placed and IV fluids were initiated. Initially, 800 mL output was noted. On 09/15/2024, a gastrografin series was ordered, which showed no progression of gastrografin to the distal small bowel, remaining in the stomach and proximal dilated bowel. NG tube was briefly clamped, however, reconnected to low intermittent suction after she had 1 liter of bilious emesis. She was taken to the operating room on 09/17 per surgeyr not there was a large ventral hernia measuring about 10 x 10 cm. There was thick adhesions from the omentum to the hernia sac and anterior abdominal wall, there were adhesions from the omentum to the lateral abdominal wall causing a kink in the small bowel, there was adhesions from the omentum to the ascending colon and some loops of the small bowel. There was a very thick interloop adhesion causing a complete obstruction in the mid jejunum. Procedure done: -Diagnostic laparoscopy -Extensive lysis of adhesions -Exploratory laparotomy -Small bowel resection -Primary repair of ventral hernia Postop patient had pulled out her NG tube. This was not replaced. Patient's diet was gradually advanced to clear liquid which she had been tolerating. She was restarted on Brilinta after loading which she tolerated. All of her oral medications were resumed. Current active medications Coreg 6.25 mg twice daily Ranexa 500 mg twice daily Lipitor 80 mg daily Catapres patch Aspirin 81 mg daily Brilinta 90 mg twice daily Wellbutrin SR 200 mg BID Atrovent 0.5 mg 16hr Vitals/I&O/Wt Last Vital Signs Temp 96.9 F L 09/21/24 12:00 Pulse 71 09/21/24 12:00 Resp 20 H 09/21/24 12:00 BP 113/41 09/21/24 12:00 Pulse Ox 98 09/21/24 12:00 O2 Del Method Nasal Cannula 09/21/24 12:00 O2 Flow Rate 3 09/21/24 07:30 09/20/24 09/21/24 09/21/24 22:59 06:59 14:59 Intake Total 300 / 520 220 / 220 Output Total 700 / 850 Balance -400 / -330 220 / 220 Weight last 48 hrs Weight 57.107 kg Weight 131 kg Physical Exam Narrative: General: No acute distress, AO x3, No apparent distress HEENT: PERRLA, pupils bilaterally equal and reactive Chest: Bilateral bronchial breath sounds over lung [place], decreased air entry bilaterally in lower zone, fine crackles present up to mid lungs CVS: S1-S2 regular, no murmurs, no tachycardia, no gallops, no rubs Abdomen: Soft, nontender, no organomegaly, bowel sounds sluggish Neuro: No focal deficits, no facial deformity, AO x3, power 5/5 in all limbs Extremity: 2+ pitting edema up to mid thigh bilaterally Data 09/21/24 04:43 09/21/24 04:43 A&P Assessment and plan (1) Small bowel obstruction: (2) Non-ST elevation [place] (NSTEMI): (3) Hypertensive urgency: (4) CHF (congestive heart failure): Qualifiers: Heart failure chronicity: acute on chronic Heart failure type: systolic Qualified Code(s): I50.23 - Acute on chronic systolic (congestive) heart failure (5) Leukocytosis: (6) CKD (chronic kidney disease): Qualifiers: Chronic kidney disease stage: stage 3 (moderate) (7) CAD (coronary artery disease): Qualifiers: Coronary Disease-Associated Artery/Lesion type: [place] artery [place] vs. 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: without longterm use Diabetes mellitus complication status: without complication Qualified Code(s): E11.9 - Type 2 diabetes mellitus without complications (9) Morbid obesity: (10) Goals of care, counseling/discussion: (11) Chest pain: Qualifiers: Chest pain type: unspecified Qualified Code(s): R07.9 - Chest pain, unspecified (12) Fecal impaction in rectum: Plan Small Bowel Obstruction - Presented with abdominal pain and elevated lactic acid - CT abdomen pelvis confirmed small bowel obstruction - Underwent diagnostic laparoscopy, lysis of adhesions, exploratory laparotomy, small bowel resection, and primary repair of ventral hernia - Advance diet as tolerated postoperatively per surgery. Coronary Artery Disease - History of percutaneous coronary intervention and balloon angioplasty in April 2024 for in-stent restenosis - Presented with chest pain - Cardiology consultation for elevated troponin levels - Restarted Brilinta 90 mg twice daily after loading dose - Continue aspirin 81 mg daily, Lipitor 80 mg daily, and Coreg 6.25 mg twice daily Congestive Heart Failure - Ejection fraction of 41% on prior studies - Presented with difficulty breathing - Diuresis as needed for volume overload - Continue current meds Repeat echocardiogram when able for reassessment of cardiac function Type 2 Diabetes Mellitus - - Monitor blood glucose levels ACHS, Sliding scale CKD- Creatinine elevated to 1.5 from baseline of 1.5 - Monitor renal function with daily BUN and creatinine - Ensure adequate hydration and avoid nephrotoxic agents Anemia - Hemoglobin of 9.9 and hematocrit of 31.2 on admission - Monitor hemoglobin and hematocrit Hypertension - Continue Catapres patch for now plus remainder of meds Dyslipidemia - Continue Lipitor 80 mg daily Depression - Continue Wellbutrin SR 200 mg BID PDMP PDMP Reviewed: Not Reviewed Attestations Medical Necessity Statement*: Continue management of postop bowel resection Coding Level of Care Code Acute Code for [facility] Diagnoses Small bowel obstruction K56.609 Non-ST elevation [place] (NSTEMI) I21.4 Hypertensive urgency I16.0 Acute on chronic systolic congestive heart failure I50.23 Heart failure chronicity: acute on chronic Heart failure type: systolic Leukocytosis D72.829 CKD (chronic kidney disease) N18.9 Chronic kidney disease stage: stage 3 (moderate) Coronary artery disease involving [place] coronary artery of [place] heart, angina presence unspecified I25.10 Coronary Disease-Associated Artery/Lesion type: [place] artery [place] vs. 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
[2024-09-21 17:08] LABS: Glucose Point of Care 190 mg/dL (70-110)
[2024-09-21] MEDS: atorvastatin 40 mg Tablet 80 MG PO (17:45)
[2024-09-21 20:16] LABS: Glucose Point of Care 142 mg/dL (70-110)
[2024-09-21] MEDS: ondansetron 2 mg/ML SDV 2 mL 4 MG IVP (22:16)
[2024-09-21] MEDS: HYDROmorphone 0.5 MG/0.5 ML INJ 0.4 MG IVP (22:28)
[2024-09-22] VITALS (11 sets, daily range): BP systolic 109–137; BP diastolic 40–70; PULSE 68–84; RESP 12–22; TEMP 36.5–36.9; O2SAT 98–100
[2024-09-22] MEDS: HYDROmorphone 0.5 MG/0.5 ML INJ 0.4 MG IVP ×2 (04:36→20:51)
[2024-09-22 06:11] LABS: Basophils % 0.2 %; Eosinophils # 0.7 10^3/uL (0.0-0.8); Eosinophils % 6.7 %; Hematocrit 27.4 % (36-47); Lymphocytes # 1.6 10^3/uL (0.8-4.8); Lymphocytes % 15.3 %; Mean Corpuscular Hemoglobin 27.1 pg (27-33); Mean Corpuscular Volume 87.3 fl (85-98); Mean Platelet Volume 10.1 fL (7.4-10.4); Monocytes # 0.7 10^3/uL (0.2-0.9); Monocytes % 6.4 %; Neutrophils # 7.53 10^3/uL (1.8-7.7); Nucleated Red Blood Cells % 0 %; Platelet Count 359 10^3/cmm (157-399); Red Blood Count 3.14 10^6/uL (3.85-5.65); Red Cell Distribution Width 14.7 % (12.1-15.1)
[2024-09-22 06:28] LABS: Alanine Aminotransferase < 5 U/L (0-33); Albumin Level 2.7 g/dL (3.5-5.2); Alkaline Phosphatase 68 U/L (35-105); Anion Gap 13.8 (5-19); Aspartate Amino Transferase 8 U/L (0-32); Blood Urea Nitrogen 39 mg/dL (8-23); Calcium 8.4 mg/dL (8.5-10.5); Carbon Dioxide 26 mmol/L (22-29); Chloride 100 mmol/L (98-107); Globulin 2.9 g/dL (1.3-4.6); Glomerular Filtration Rate 38.2 mL/min (90-130); Glucose 98 mg/dL (65-115); Osmolality Calculated 291 mOsm/kg (285-295); Potassium 3.8 mmol/L (3.5-5.1); Sodium 136 mmol/L (136-145); Total Bilirubin 0.4 mg/dL (0.15-1.2); Total Protein 5.6 g/dL (6.6-8.7)
[2024-09-22 06:29] LABS: Glucose Point of Care 111 mg/dL (70-110)
[2024-09-22] MEDS: insulin glargine 100 units/1 mL 30 UNIT SUBCUT (06:32)
[2024-09-22] MEDS: ipratropium 0.5 mg/2.5 mL Neb INHALATION (08:22)
[2024-09-22] MEDS: levalbuterol 0.63 mg/3 mL Neb INHALATION (08:22)
[2024-09-22] MEDS: ticagrelor 90 mg Tablet PO ×2 (09:35→18:39)
[2024-09-22] MEDS: buPROPion SR (12 HR) 100 mg Tablet 200 MG PO ×2 (09:35→18:39)
[2024-09-22] MEDS: ranolazine (12HR) 500 mg Tablet PO ×2 (09:35→18:39)
[2024-09-22] MEDS: aspirin 81 mg Chew Tablet PO (09:35)
[2024-09-22] MEDS: carvedilol 6.25 mg Tablet PO ×2 (09:35→18:39)
--- NOTE | 2024-09-22 09:50 | P.PN_ITS ---
Subjective 2 Subjective: 63-year-old female with a past medical h istory of coronary artery disease, type 2 diabetes mellitus, hypertension, [place] resident, wheelchair-bound, recent percutaneous coronary intervention for in-stent restenosis to mid right coronary artery, balloon angioplasty to distal left circumflex artery for in- stent restenosis in April 2024, congestive heart failure with ejection fraction of 41%, cerebrovascular accident, dyslipidemia, restless leg syndrome, and obstructive sleep apnea presents with chest pain and difficulty breathing on 09/12/2024. Her initial laboratory workup showed a WBC of 12.5, hemoglobin of 9.9, hematocrit of 31.2 and a platelet count of 302. D-dimer 2.29. Sodium 140, potassium 4.3, chloride 102, bicarb 27, BUN of 45 and a creatinine of 1.5. Her baseline creatinine is around 1.5. Iron level of 23, TIBC of 261 and percent saturation of 8.8. Her initial troponin T at baseline was 116. After 120 minutes this had increased to 122. Procalcitonin of 0.12. TSH of 3.99. Cardiology was consulted due to elevated troponin level. Repeat echocardiogram was attempted however this was a poor study. Grossly LV function appeared to be moderately reduced. Shortly after admission, the patient complained of abdominal pain for which a rapid response was called. Lactic acid was elevated. CT abdomen pelvis revealed a small bowel obstruction. NG tube was placed and IV fluids were initiated. Initially, 800 mL output was noted. On 09/15/2024, a gastrografin series was ordered, which showed no progression of gastrografin to the distal small bowel, remaining in the stomach and proximal dilated bowel. NG tube was briefly clamped, however, reconnected to low intermittent suction after she had 1 liter of bilious emesis. She was taken to the operating room on 09/17 per surgeyr not there was a large ventral hernia measuring about 10 x 10 cm. There was thick adhesions from the omentum to the hernia sac and anterior abdominal wall, there were adhesions from the omentum to the lateral abdominal wall causing a kink in the small bowel, there was adhesions from the omentum to the ascending colon and some loops of the small bowel. There was a very thick interloop adhesion causing a complete obstruction in the mid jejunum. Procedure done: -Diagnostic laparoscopy -Extensive lysis of adhesions -Exploratory laparotomy -Small bowel resection -Primary repair of ventral hernia Postop patient had pulled out her NG tube. This was not replaced. Patient's diet was gradually advanced to clear liquid which she had been tolerating. She was restarted on Brilinta after loading which she tolerated. All of her oral medications were resumed. 09/22 Continues to improve. Passing gas and having BM. Tolerating oral intake. No fever, chills, nausea or vomiting. No chest pain. Medications: Reviewed: Yes Vitals/I&O/Wt Last Vital Signs Temp 97.9 F 09/22/24 07:39 Pulse 71 09/22/24 08:22 Resp 16 09/22/24 08:22 BP 116/48 09/22/24 07:39 Pulse Ox 98 09/22/24 08:22 O2 Del Method Nasal Cannula 09/22/24 08:22 O2 Flow Rate 2 09/22/24 08:22 09/21/24 09/22/24 09/22/24 22:59 06:59 14:59 Intake Total 400 / 620 Output Total 353 / 353 200 / 553 Balance 47 / 267 -200 / 67 Weight last 48 hrs Weight 124 kg Weight 57.107 kg Physical Exam 2 Narrative: General: No acute distress, sleeping - o2 sat 99 on 2L HEENT: PERRLA, pupils bilaterally equal and reactive Chest: Bilateral bronchial breath sounds over lung [place], decreased air entry bilaterally in lower zone,nonlabored CVS: S1-S2 regular, no murmurs, no tachycardia, no gallops, no rubs Abdomen: Soft, nontender, no organomegaly, bowel sounds sluggish Neuro: No focal deficits, no facial deformity, AO x3, power 5/5 in all limbs Extremity: 2+ pitting edema up to mid thigh bilaterally Data 09/22/24 05:50 09/22/24 05:50 A&P Assessment and plan (1) Small bowel obstruction: (2) Non-ST elevation [place] (NSTEMI): (3) Hypertensive urgency: (4) CHF (congestive heart failure): Qualifiers: Heart failure chronicity: acute on chronic Heart failure type: systolic Qualified Code(s): I50.23 - Acute on chronic systolic (congestive) heart failure (5) Leukocytosis: (6) CKD (chronic kidney disease): Qualifiers: Chronic kidney disease stage: stage 3 (moderate) (7) CAD (coronary artery disease): Qualifiers: Associated angina: angina presence unspecified Coronary Disease- Associated Artery/Lesion type: [place] artery [place] vs. 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: without retirement use Qualified Code(s): E11.9 - Type 2 diabetes mellitus without complications (9) Morbid obesity: (10) Goals of care, counseling/discussion: (11) Chest pain: Qualifiers: Chest pain type: unspecified Qualified Code(s): R07.9 - Chest pain, unspecified (12) Fecal impaction in rectum: Plan Small Bowel Obstruction - Presented with abdominal pain and elevated lactic acid - CT abdomen pelvis confirmed small bowel obstruction - Post day 5 status post laparoscopy with lysis of additions and laparotomy bowel resection and repair of ventral hernia- Advance diet as tolerated postoperatively per surgery. Passing gas and having a BM. Coronary Artery Disease - History of percutaneous coronary intervention and balloon angioplasty in April 2024 for in-stent restenosis - Presented with chest pain - Cardiology consultation for elevated troponin levels - Restarted Brilinta 90 mg twice daily after loading dose - Continue aspirin 81 mg daily, Lipitor 80 mg daily, and Coreg 6.25 mg twice daily. No further cardiac work up planned. Congestive Heart Failure - Ejection fraction of 41% on prior studies - Presented with difficulty breathing - Diuresis as needed for volume overload - Continue current meds. Repeat echocardiogram when able for reassessment of cardiac function. No further cardiac work up planned. Type 2 Diabetes Mellitus - - Monitor blood glucose levels ACHS, Sliding scale CKD- Creatinine elevated to 1.5 from baseline of 1.5 - Monitor renal function with daily BUN and creatinine - Ensure adequate hydration and avoid nephrotoxic agents Anemia - Hemoglobin of 9.9 and hematocrit of 31.2 on admission - Monitor hemoglobin and hematocrit Hypertension - Continue Catapres patch for now plus remainder of meds. May consider d/c catapres and change po if needed. Dyslipidemia - Continue Lipitor 80 mg daily Depression - Continue Wellbutrin SR 200 mg BID Disposition - Anticipate possible discharge tomorrow to [place] as per surgery. PDMP PDMP Reviewed: Not Reviewed Attestations 2 Medical Necessity Statement*: Continue management of postop bowel resection Coding Level of Care Code Acute Code for Chg Fwd Diagnoses Small bowel obstruction K56.609 Non-ST elevation [place] (NSTEMI) I21.4 Hypertensive urgency I16.0 Acute on chronic systolic congestive heart failure I50.23 Heart failure chronicity: acute on chronic Heart failure type: systolic Leukocytosis D72.829 CKD (chronic kidney disease) N18.9 Chronic kidney disease stage: stage 3 (moderate) Coronary artery disease involving [place] coronary artery of [place] heart, angina presence unspecified I25.10 Associated angina: angina presence unspecified Coronary Disease-Associated Artery/Lesion type: [place] artery [place] vs. 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
--- NOTE | 2024-09-22 10:14 | P.PN_ITS ---
Subjective 2 Subjective: Today's postoperative day 5 status post laparoscopy with lysis of additions and laparotomy bowel resection and repair of ventral hernia. Patient is doing well has had a very good progression over the last 24 hours was able to had a large bowel movement by herself. Improvement of the abdominal of pain. Passing consistent gas. Tolerating the diet. Vitals/I&O/Wt Last Vital Signs Temp 97.9 F 09/22/24 07:39 Pulse 71 09/22/24 08:22 Resp 16 09/22/24 08:22 BP 116/48 09/22/24 07:39 Pulse Ox 98 09/22/24 08:22 O2 Del Method Nasal Cannula 09/22/24 08:22 O2 Flow Rate 2 09/22/24 08:22 09/21/24 09/22/24 09/22/24 22:59 06:59 14:59 Intake Total 400 / 620 Output Total 353 / 353 200 / 553 Balance 47 / 267 -200 / 67 Weight last 48 hrs Weight 273 lb 5.971 oz Weight 125 lb 14.4 oz Physical Exam 2 GI: OTHER: Abdominal examination is benign, there is good bowel sounds the surgical incision is healing well. Data 09/22/24 05:50 09/22/24 05:50 A&P Assessment and plan (1) Small bowel obstruction: Plan Patient showing excellent progression over the last 24 hours. Since she was able to have a large bowel movement I do not think we need to do another rectal examination today. I have encouraged her to get out of bed and move is much as possible. I will advance her to a GI soft diet today and will start her on a one-time dose of a mild laxative to help move things along as she has had significant constipation in the past. If everything goes well over the next 24 hours she can transition back to the [facility] tomorrow morning. Patient shows understanding agrees with the plan PDMP PDMP Reviewed: Not Reviewed Attestations 2 Medical Necessity Statement*: Possible discharge tomorrow Coding Level of Care Code Acute Code for Chg Fwd Diagnoses Small bowel obstruction K56.609
[2024-09-22 11:41] LABS: Glucose Point of Care 122 mg/dL (70-110)
[2024-09-22] MEDS: polyethylene glycol 3350 Pkt 17 gm PO (15:10)
[2024-09-22 16:34] LABS: Glucose Point of Care 168 mg/dL (70-110)
[2024-09-22] MEDS: atorvastatin 40 mg Tablet 80 MG PO (18:39)
[2024-09-22] MEDS: insulin lispro 100 unit/1 mL SUBCUT ×2 (18:40→20:50)
[2024-09-22 20:37] LABS: Glucose Point of Care 296 mg/dL (70-110)
[2024-09-23] VITALS (8 sets, daily range): BP systolic 110–149; BP diastolic 59–76; PULSE 77–88; RESP 16–20; TEMP 36.5–36.8; O2SAT 96–100
[2024-09-23] MEDS: HYDROmorphone 0.5 MG/0.5 ML INJ 0.4 MG IVP (02:09)
[2024-09-23 06:30] LABS: Glucose Point of Care 145 mg/dL (70-110)
[2024-09-23] MEDS: insulin glargine 100 units/1 mL 30 UNIT SUBCUT (06:32)
--- NOTE | 2024-09-23 07:05 | P.PN_ITS ---
Subjective 2 Subjective: Today's postoperative day 6. She is showing very good progression over the last 24 hours. No nausea or vomit has passed gas no bowel movements over the last 24 hours. Vitals/I&O/Wt Last Vital Signs Temp 97.8 F 09/23/24 04:00 Pulse 79 09/23/24 05:20 Resp 20 H 09/23/24 04:00 BP 128/59 09/23/24 04:00 Pulse Ox 100 09/23/24 04:00 O2 Del Method Nasal Cannula 09/23/24 04:00 O2 Flow Rate 2 09/23/24 02:55 09/22/24 09/23/24 09/23/24 22:59 06:59 14:59 Output Total 250 / 250 150 / 400 Balance -250 / -250 -150 / -400 Weight last 48 hrs Weight 280 lb 4.8 oz Weight 280 lb 4.8 oz Weight 273 lb 5.971 oz Physical Exam 2 GI: OTHER: Benign abdominal exam abdomen is soft, appropriately tender to palpation, surgical incision is healing well and there is very good bowel sounds. Data 09/22/24 05:50 09/22/24 05:50 A&P Assessment and plan (1) Abdominal wall hernia: (2) Fecal impaction in rectum: (3) Small bowel obstruction: Plan Patient showing very good progression after laparotomy with bowel resection and primary repair of ventral hernia for small bowel obstruction. She is cleared to transition to the outpatient setting from my standpoint we will continue her once a day MiraLAX in the long-term to allow for better GI function due to history of chronic constipation. She will return to the clinic to see me in 2 weeks. PDMP PDMP Reviewed: Not Reviewed Attestations 2 Medical Necessity Statement*: Per medical team Coding Level of Care Code Acute Code for Chg Fwd Diagnoses Abdominal wall hernia K43.9 Fecal impaction in rectum K56.41 Small bowel obstruction K56.609
[2024-09-23] MEDS: polyethylene glycol 3350 Pkt 17 gm PO (08:41)
[2024-09-23] MEDS: insulin lispro 100 unit/1 mL SUBCUT ×3 (08:41→17:31)
[2024-09-23] MEDS: carvedilol 6.25 mg Tablet PO ×2 (08:42→17:32)
[2024-09-23] MEDS: buPROPion SR (12 HR) 100 mg Tablet 200 MG PO ×2 (08:42→17:32)
[2024-09-23] MEDS: ranolazine (12HR) 500 mg Tablet PO ×2 (08:42→17:32)
[2024-09-23] MEDS: aspirin 81 mg Chew Tablet PO (08:42)
[2024-09-23] MEDS: ticagrelor 90 mg Tablet PO ×2 (08:42→17:32)
[2024-09-23 11:31] LABS: Glucose Point of Care 165 mg/dL (70-110)
--- NOTE | 2024-09-23 11:44 | PC.SOCIAL ---
IMM Updated Updated pt on IMM. No questions voiced. Provided pt a copy. Initialed, dated, & timed copy in chart.
--- NOTE | 2024-09-23 15:07 | PM.PN ---
Subjective Subjective: Patient states she feels very dizzy today. Will check orthostatics. She is currently able to move from the bed to bedside commode with max assist. She is able to have a bowel movement. She is noted to have bilateral lower extremity swelling however unable to tell me if this is improvement over previous or not. Currently on supplemental O2 at 2 L/min. Urine output only at 400 cc last 24 hours. Medications: Reviewed: Yes Vitals/I&O/Wt Last Vital Signs Temp 98.2 F 09/23/24 11:49 Pulse 82 09/23/24 11:49 Resp 20 H 09/23/24 11:49 BP 133/70 09/23/24 11:49 Pulse Ox 98 09/23/24 11:49 O2 Del Method Room Air 09/23/24 14:00 O2 Flow Rate 2 09/23/24 11:49 09/23/24 09/23/24 09/23/24 06:59 14:59 22:59 Output Total 150 / 400 Balance -150 / -400 Weight last 48 hrs Weight 127.142 kg Weight 127.142 kg Weight 124 kg Physical Exam Narrative: General: No acute distress, AO x3 HEENT: PERRLA, pupils bilaterally equal and reactive, pallors not present Chest: Normal vesicular breath sounds, no added sounds, equal good air entry bilaterally CVS: S1-S2 regular, no murmurs, no tachycardia, no gallops, no rubs Abdomen: Soft, nontender, no organomegaly, bowel sounds present Neuro: No focal deficits, no facial deformity, AO x3, power 5/5 in all limbs Data 09/22/24 05:50 09/22/24 05:50 A&P Assessment and plan (1) Small bowel obstruction: (2) Non-ST elevation [place] (NSTEMI): (3) Hypertensive urgency: (4) CHF (congestive heart failure): Qualifiers: Heart failure chronicity: acute on chronic Heart failure type: systolic Qualified Code(s): I50.23 - Acute on chronic systolic (congestive) heart failure (5) Leukocytosis: (6) CKD (chronic kidney disease): Qualifiers: Chronic kidney disease stage: stage 3 (moderate) (7) CAD (coronary artery disease): Qualifiers: Coronary Disease-Associated Artery/Lesion type: [place] artery [place] vs. transplanted heart: [place] heart Associated angina: angina presence unspecified Qualified Code(s): I25.10 - Atherosclerotic heart disease of [place] coronary artery without angina pectoris (8) DM type 2 (diabetes mellitus, type 2): Qualifiers: Diabetes mellitus professor of legal studies insulin use: without professor of legal studies use Diabetes mellitus complication status: without complication Qualified Code(s): E11.9 - Type 2 diabetes mellitus without complications (9) Morbid obesity: (10) Goals of care, counseling/discussion: (11) Chest pain: Qualifiers: Chest pain type: unspecified Qualified Code(s): R07.9 - Chest pain, unspecified (12) Fecal impaction in rectum: Plan Small Bowel Obstruction - Presented with abdominal pain and elevated lactic acid - CT abdomen pelvis confirmed small bowel obstruction - Post day 5 status post laparoscopy with lysis of additions and laparotomy bowel resection and repair of ventral hernia- Advance diet as tolerated postoperatively per surgery. Passing gas and having a BM. Coronary Artery Disease - History of percutaneous coronary intervention and balloon angioplasty in April 2024 for in-stent restenosis - Presented with chest pain - Cardiology consultation for elevated troponin levels - Restarted Brilinta 90 mg twice daily after loading dose - Continue aspirin 81 mg daily, Lipitor 80 mg daily, and Coreg 6.25 mg twice daily. No further cardiac work up planned. Congestive Heart Failure - Ejection fraction of 41% on prior studies - Presented with difficulty breathing - Diuresis as needed for volume overload - Continue current meds. Repeat echocardiogram when able for reassessment of cardiac function. No further cardiac work up planned. Type 2 Diabetes Mellitus - - Monitor blood glucose levels ACHS, Sliding scale CKD- Creatinine elevated to 1.5 from baseline of 1.5 - Monitor renal function with daily BUN and creatinine - Ensure adequate hydration and avoid nephrotoxic agents Anemia - Hemoglobin of 9.9 and hematocrit of 31.2 on admission - Monitor hemoglobin and hematocrit Hypertension - Continue Catapres patch for now plus remainder of meds. May consider d/c catapres and change po if needed. Dyslipidemia - Continue Lipitor 80 mg daily Depression - Continue Wellbutrin SR 200 mg BID Disposition - Anticipate possible discharge tomorrow to [place] as per surgery. September 23, 2024 Patient continues to have good bowel movement. Cleared for discharge per surgery. Patient reports feeling very dizzy today. She is noted to have bilateral lower extremity swelling with pitting edema, she is uncertain if this is better or worse compared to previously. Review of MAR shows patient typically takes Bumex at home. On exam today she has bilateral lower extremity pitting edema. States she is becoming very short of breath and moving from bed to bedside commode. Additionally reports feeling dizzy today. Will check a set of orthostatics. Resume home dose of Bumex 2 mg p.o. daily. Urine output reported at 400 cc last 24 hours. Check CBC and CMP today for stability of H&H. Following hemoglobin may potentially be contributing to feeling dizzy. PDMP PDMP Reviewed: Not Reviewed Attestations Medical Necessity Statement*: Orthostatics, resume oral dose of Bumex, check urine output and kidney function and serial H&H. Coding Level of Care Code Acute Code for g Fwd Diagnoses Small bowel obstruction K56.609 Non-ST elevation [place] (NSTEMI) I21.4 Hypertensive urgency I16.0 Acute on chronic systolic congestive heart failure I50.23 Heart failure chronicity: acute on chronic Heart failure type: systolic Leukocytosis D72.829 CKD (chronic kidney disease) N18.9 Chronic kidney disease stage: stage 3 (moderate) Coronary artery disease involving [place] coronary artery of [place] heart, angina presence unspecified I25.10 Coronary Disease-Associated Artery/Lesion type: [place] artery [place] vs. transplanted heart: [place] heart Associated angina: angina presence unspecified Type 2 diabetes mellitus without complication, without long-term current use of insulin E11.9 Diabetes mellitus professor of legal studies insulin use: without senior living use Diabetes mellitus complication status: without complication Morbid obesity E66.01 Goals of care, counseling/discussion Z71.89 Chest pain, unspecified type R07.9 Chest pain type: unspecified Fecal impaction in rectum K56.41
[2024-09-23 15:37] LABS: Basophils % 0.2 %; Eosinophils # 0.5 10^3/uL (0.0-0.8); Eosinophils % 5.5 %; Hematocrit 28.9 % (36-47); Lymphocytes # 1.8 10^3/uL (0.8-4.8); Lymphocytes % 20.5 %; Mean Corpuscular HGB Conc 30.4 g/dL (30-55); Mean Corpuscular Hemoglobin 27.1 pg (27-33); Mean Corpuscular Volume 88.9 fl (85-98); Mean Platelet Volume 9.9 fL (7.4-10.4); Monocytes # 0.7 10^3/uL (0.2-0.9); Monocytes % 7.7 %; Neutrophils # 5.86 10^3/uL (1.8-7.7); Neutrophils % 65.3 %; Nucleated Red Blood Cells % 0 %; Platelet Count 316 10^3/cmm (157-399); Red Blood Count 3.25 10^6/uL (3.85-5.65); Red Cell Distribution Width 14.8 % (12.1-15.1); White Blood Count 8.97 10^3/uL (3.29-11.43)
[2024-09-23 16:07] LABS: Alanine Aminotransferase < 5 U/L (0-33); Albumin Level 2.7 g/dL (3.5-5.2); Alkaline Phosphatase 79 U/L (35-105); Anion Gap 16.1 (5-19); Aspartate Amino Transferase 8 U/L (0-32); Blood Urea Nitrogen 41 mg/dL (8-23); Calcium 8.8 mg/dL (8.5-10.5); Carbon Dioxide 24 mmol/L (22-29); Chloride 97 mmol/L (98-107); Globulin 3.2 g/dL (1.3-4.6); Glomerular Filtration Rate 30.6 mL/min (90-130); Glucose 156 mg/dL (65-115); Osmolality Calculated 289 mOsm/kg (285-295); Potassium 4.1 mmol/L (3.5-5.1); Sodium 133 mmol/L (136-145); Total Bilirubin 0.4 mg/dL (0.15-1.2); Total Protein 5.9 g/dL (6.6-8.7)
[2024-09-23] MEDS: bumetanide 1 mg Tablet 2 MG PO (16:38)
[2024-09-23 17:01] LABS: Glucose Point of Care 174 mg/dL (70-110)
[2024-09-23 20:45] LABS: Glucose Point of Care 136 mg/dL (70-110)
[2024-09-23] MEDS: atorvastatin 40 mg Tablet 80 MG PO (22:04)
[2024-09-24] VITALS (7 sets, daily range): BP systolic 106–146; BP diastolic 58–86; PULSE 78–84; RESP 15–20; TEMP 36.5–37; O2SAT 96–100
[2024-09-24 03:26] LABS: Glucose Point of Care 157 mg/dL (70-110)
[2024-09-24 05:58] LABS: Basophils % 0.3 %; Eosinophils # 0.5 10^3/uL (0.0-0.8); Eosinophils % 5.2 %; Hematocrit 26.7 % (36-47); Lymphocytes # 2.3 10^3/uL (0.8-4.8); Lymphocytes % 25.3 %; Mean Corpuscular HGB Conc 31.5 g/dL (30-55); Mean Corpuscular Hemoglobin 26.8 pg (27-33); Mean Corpuscular Volume 85.3 fl (85-98); Mean Platelet Volume 9.9 fL (7.4-10.4); Monocytes # 0.7 10^3/uL (0.2-0.9); Monocytes % 7.2 %; Neutrophils # 5.61 10^3/uL (1.8-7.7); Neutrophils % 61.2 %; Nucleated Red Blood Cells % 0 %; Platelet Count 294 10^3/cmm (157-399); Red Blood Count 3.13 10^6/uL (3.85-5.65); Red Cell Distribution Width 14.9 % (12.1-15.1); White Blood Count 9.17 10^3/uL (3.29-11.43)
[2024-09-24 06:20] LABS: Alanine Aminotransferase < 5 U/L (0-33); Albumin Level 2.7 g/dL (3.5-5.2); Alkaline Phosphatase 78 U/L (35-105); Anion Gap 12.9 (5-19); Aspartate Amino Transferase 7 U/L (0-32); Blood Urea Nitrogen 40 mg/dL (8-23); Calcium 8.4 mg/dL (8.5-10.5); Carbon Dioxide 28 mmol/L (22-29); Chloride 101 mmol/L (98-107); Globulin 2.7 g/dL (1.3-4.6); Glomerular Filtration Rate 35.3 mL/min (90-130); Glucose 117 mg/dL (65-115); Osmolality Calculated 297 mOsm/kg (285-295); Potassium 3.9 mmol/L (3.5-5.1); Sodium 138 mmol/L (136-145); Total Bilirubin 0.4 mg/dL (0.15-1.2); Total Protein 5.4 g/dL (6.6-8.7)
[2024-09-24 06:36] LABS: Glucose Point of Care 123 mg/dL (70-110)
[2024-09-24] MEDS: insulin glargine 100 units/1 mL 30 UNIT SUBCUT (06:58)
--- NOTE | 2024-09-24 08:44 | P.PN_ITS ---
Subjective 2 Subjective: Continues to Have good progression from the general surgery standpoint. No significant abdominal pain having adequate bowel function. Yesterday patient had episode dizziness. Laboratory workup was mostly unremarkable other than a slight elevation of creatinine. She was started on home diuretic with good results and improvement of creatinine today. Vitals/I&O/Wt Last Vital Signs Temp 97.7 F 09/24/24 08:00 Pulse 83 09/24/24 08:14 Resp 16 09/24/24 08:14 BP 146/61 09/24/24 08:00 Pulse Ox 98 09/24/24 08:14 O2 Del Method Nasal Cannula 09/24/24 08:14 O2 Flow Rate 2 09/24/24 08:14 09/23/24 09/24/24 09/24/24 22:59 06:59 14:59 Intake Total 200 / 320 Output Total 600 / 900 800 / 1700 Balance -600 / -780 -600 / -1380 Weight last 48 hrs Weight 268 lb 15.423 oz Weight 280 lb 4.8 oz Weight 280 lb 4.8 oz Physical Exam 2 GI: OTHER: Abdomen soft nontender, has surgical incision is healing well, good bowel sounds. Data 09/24/24 05:44 09/24/24 05:44 A&P Assessment and plan (1) GERD (gastroesophageal reflux disease): (2) Small bowel obstruction: (3) Fecal impaction in rectum: (4) Obesity: Plan Patient showing adequate progression from the surgical standpoint. Normal vital signs, normal laboratory workup, creatinine has improved after starting diuretic yesterday. Patient can transition to the outpatient setting from my standpoint she should follow-up in 2 weeks in my office. I will continue once a day MiraLAX to help with bowel movements. PDMP PDMP Reviewed: Not Reviewed Attestations 2 Medical Necessity Statement*: Per medical team Coding Level of Care Code 97866 Diagnoses GERD (gastroesophageal reflux disease) K21.9 Small bowel obstruction K56.609 Fecal impaction in rectum K56.41 Obesity E66.9
[2024-09-24] MEDS: carvedilol 6.25 mg Tablet PO (09:51)
[2024-09-24] MEDS: polyethylene glycol 3350 Pkt 17 gm PO (09:51)
[2024-09-24] MEDS: ranolazine (12HR) 500 mg Tablet PO (09:51)
[2024-09-24] MEDS: ticagrelor 90 mg Tablet PO (09:52)
[2024-09-24] MEDS: aspirin 81 mg Chew Tablet PO (09:52)
[2024-09-24] MEDS: bumetanide 1 mg Tablet 2 MG PO (09:52)
[2024-09-24] MEDS: buPROPion SR (12 HR) 100 mg Tablet 200 MG PO (09:52)
[2024-09-24 11:05] LABS: C.Diff PCR (Lab) NEGATIVE (Negative)
[2024-09-24 12:23] LABS: Glucose Point of Care 201 mg/dL (70-110)
[2024-09-24] MEDS: insulin lispro 100 unit/1 mL SUBCUT (12:30)
--- NOTE | 2024-09-24 12:36 | PC.NURSE ---
Report called to DEANGELO Shaw at [facility] at [phone].
--- NOTE | 2024-09-24 15:52 | P.DS_ITS ---
Discharge Providers Date of Admission: 09/12/24 17:29 Date of Discharge: September 24, 2024 Attending Provider at Admission: Clovis Szymanski MD Attending Provider at Discharge: Shelli Aguiar MD Primary Care Provider: Niko Jerez MD Diagnoses at Discharge Discharge Diagnosis (1) GERD (gastroesophageal reflux disease): Status: Chronic (2) Small bowel obstruction: Status: Acute (3) Fecal impaction in rectum: Status: Acute (4) Obesity: Status: Acute Reason for Visit Reason for Visit: chest pain, n/v Brief History: 63-year-old female with a past medical h istory of coronary artery disease, type 2 diabetes mellitus, hypertension, custodial resident, wheelchair-bound, recent percutaneous coronary intervention for in-stent restenosis to mid right coronary artery, balloon angioplasty to distal left circumflex artery for in- stent restenosis in April 2024, congestive heart failure with ejection fraction of 41%, cerebrovascular accident, dyslipidemia, restless leg syndrome, and obstructive sleep apnea presented with chest pain and difficulty breathing on 09/12/2024. Her initial laboratory workup showed a WBC of 12.5, hemoglobin of 9.9, hematocrit of 31.2 and a platelet count of 302. D-dimer 2.29. Sodium 140, potassium 4.3, chloride 102, bicarb 27, BUN of 45 and a creatinine of 1.5. Her baseline creatinine is around 1.5. Iron level of 23, TIBC of 261 and percent saturation of 8.8. Her initial troponin T at baseline was 116. After 120 minutes this had increased to 122. Procalcitonin of 0.12. TSH of 3.99. Ca rdiology was consulted due to elevated troponin level. Repeat echocardiogram was attempted however this was a poor study. Grossly LV function appeared to be moderately reduced. She was medically managed. Shortly after admission, the patient complained of abdominal pain for which a rapid response was called. Lactic acid was elevated. CT abdomen pelvis revealed a small bowel obstruction. NG tube was placed and IV fluids were initiated. Initially, 800 mL output was noted. On 09/15/2024, a gastrografin series was ordered, which showed no progression of gastrografin to the distal small bowel, remaining in the stomach and proximal dilated bowel. NG tube was briefly clamped, however, reconnected to low intermittent suction after she had 1 liter of bilious emesis. She was taken to the operating room on 09/17 per surgery . there was a large ventral hernia measuring about 10 x 10 cm. There was thick adhesions from the omentum to the hernia sac and anterior abdominal wall, there were adhesions from the omentum to the lateral abdominal wall causing a kink in the small bowel, there was adhesions from the omentum to the ascending colon and some loops of the small bowel. There was a very thick interloop adhesion causing a complete obstruction in the mid jejunum. She underwent Extensive lysis of adhesion, Exploratory laparotomy and Primary repair of ventral hernia. Patient's diet was gradually advanced to clear liquid which she had been tolerating. She was restarted on Brilinta after loading which she tolerated. All of her oral medications were resumed. She is currently passing gas and having bowel movements. Tolerating po intake. She is being discharged to SNF in stable state today. Physical Exam Narrative: General: No acute distress, AO x3 HEENT: PERRLA, pupils bilaterally equal and reactive, pallors not present Chest: Normal vesicular breath sounds, no added sounds, equal good air entry bilaterally CVS: S1-S2 regular, no murmurs, no tachycardia, no gallops, no rubs Abdomen: Soft, nontender, no organomegaly, bowel sounds present Neuro: No focal deficits, no facial deformity, AO x3, power 5/5 in all limbs Discharge Data Studies Completed and Pending Completed Studies During Hospitalization Category [place] [address] Stat Cat Scan 09/12/24 19:41 Completed CXRP [XR chest 1V portable [id number]] Routine Exams 09/16/24 08:42 Completed CXRP [XR chest 1V portable 10376] Stat Exams 09/12/24 22:22 Completed CXRP [XR chest 1V portable [id number]] Stat Exams 09/15/24 08:34 Completed XR KUB portable [id number] Routine Exams 09/15/24 12:07 Completed XR KUB portable [id number] Stat Exams 09/13/24 20:19 Completed XR chest 1V portable [id number] Stat Exams 09/12/24 09:11 Completed Pathology: Surgical [PTH] Routine Pth 09/17/24 15:04 Completed CV. echo limited 53845 Routine Ultrasound 09/12/24 17:37 Completed Pending at discharge Category Date Time Status ABO/Rh Type Routine Lab 09/16/24 10:03 Results Complete Crossmatch Routine Lab 09/16/24 10:03 Results Fecal Occult Blood [Immunochemical Fecal OCB] Routine Lab 09/24/24 09:13 Ordered Platelets Leuko-Reduced Routine Lab 09/16/24 10:03 Results Type and Screen Routine Lab 09/16/24 10:03 Results Radiology Impressions Chest/Abdomen/Pelvis CT 09/12/24 19:41 IMPRESSION: 1. New small focal consolidation in the anterior left lower lobe. 2. Old granulomatous disease. IMPRESSION: 1. Findings consistent with small bowel obstruction with transition point in the right mid abdomen. 2. Other nonemergent findings above. ADDENDUM: 09/12/242053 ADDENDUM: THIS REPORT CONTAINS FINDINGS THAT MAY BE CRITICAL TO PATIENT CARE. The findings were verbally communicated via telephone conference with Dr. Tran at 8:52 PM GATE OPERATOR on 09/12/2024. The findings were acknowledged and understood. KUB X-Ray 09/15/24 12:07 IMPRESSION: Contrast material is present in the stomach and dilated proximal and mid small bowel consistent with distal small bowel obstruction. Chest X-Ray 09/16/24 08:42 IMPRESSION: Satisfactory placement right-sided PICC line. Laboratory Results WBC 9.17 10^3/uL (3.29-11.43) 09/24/24 05:44 RBC 3.13 10^6/uL (3.85-5.65) L 09/24/24 05:44 Hgb 8.40 g/dL (11.27-16.99) L 09/24/24 05:44 Hct 26.7 % (36-47) L 09/24/24 05:44 MCV 85.3 fl (85-98) 09/24/24 05:44 MCH 26.8 pg (27-33) L 09/24/24 05:44 MCHC 31.5 g/dL (30-55) 09/24/24 05:44 RDW 14.9 % (12.1-15.1) 09/24/24 05:44 Plt Count 294 10^3/cmm (157-399) 09/24/24 05:44 MPV 9.9 fL (7.4-10.4) 09/24/24 05:44 Neut % (Auto) 61.2 % 09/24/24 05:44 Lymph % (Auto) 25.3 % 09/24/24 05:44 Schley % (Auto) 7.2 % 09/24/24 05:44 Eos % (Auto) 5.2 % 09/24/24 05:44 Baso % (Auto) 0.3 % 09/24/24 05:44 Neut # (Auto) 5.61 10^3/uL (1.8-7.7) 09/24/24 05:44 Lymph # (Auto) 2.3 10^3/uL (0.8-4.8) 09/24/24 05:44 Schley # (Auto) 0.7 10^3/uL (0.2-0.9) 09/24/24 05:44 Eos # (Auto) 0.5 10^3/uL (0.0-0.8) 09/24/24 05:44 Baso # (Auto) 0.0 10^3/uL (0.0-0.1) 09/24/24 05:44 Nucleated RBC % (auto) 0 % 09/24/24 05:44 Nucleated RBCs # 0.0 /100WBC 09/24/24 05:44 APTT 62.8 SECONDS (23.9-36.7) H 09/17/24 03:11 D-Dimer 2.29 ug/mLFEU (0-0.59) H 09/12/24 10:13 Sodium 138 mmol/L (136-145) 09/24/24 05:44 Potassium 3.9 mmol/L (3.5-5.1) 09/24/24 05:44 Chloride 101 mmol/L (98-107) 09/24/24 05:44 Carbon Dioxide 28 mmol/L (22-29) 09/24/24 05:44 Anion Gap 12.9 (5-19) 09/24/24 05:44 BUN 40 mg/dL (8-23) H 09/24/24 05:44 Creatinine 1.5 mg/dL (0.5-0.9) H 09/24/24 05:44 GFR Calculation 35.3 mL/min (90-130) L 09/24/24 05:44 Glucose 117 mg/dL (65-115) H 09/24/24 05:44 POC Glucose 201 mg/dL (70-110) H 09/24/24 12:16 Estimat Average Glucose 171 09/12/24 10:13 Hemoglobin A1c 7.6 % (4.0-6.0) H 09/12/24 10:13 Calculated Osmolality 297 mOsm/kg (285-295) H 09/24/24 05:44 Lactic Acid 1.5 mmol/L (0.5-2.2) 09/12/24 17:01 Lactate 0.9 mmol/L (0.5-2.2) 09/13/24 20:37 Calcium 8.4 mg/dL (8.5-10.5) L 09/24/24 05:44 Phosphorus 3.6 mg/dL (2.5-4.5) 09/15/24 05:47 Magnesium 2.0 mg/dL (1.7-2.3) 09/15/24 05:47 Iron 23 ug/dL (37-145) L 09/12/24 12:09 TIBC 261 mcg/dl 09/12/24 12:09 % Saturation 8.8 % (20-50) L 09/12/24 12:09 Unsat Iron Binding 238 ug/dL (112-347) 09/12/24 12:09 Total Bilirubin 0.4 mg/dL (0.15-1.2) 09/24/24 05:44 AST 7 U/L (0-32) 09/24/24 05:44 ALT < 5 U/L (0-33) 09/24/24 05:44 Alkaline Phosphatase 78 U/L (35-105) 09/24/24 05:44 Troponin T Baseline 116 ng/L (0-10) H* 09/12/24 10:13 Troponin T 120 Minute 122.3 ng/L (0-10) H 09/12/24 12:09 Delta Troponin T 6.3 ABS# (0-10) 09/12/24 12:09 Troponin T Hi Sens 6Hr 127.0 ng/L (0-10) H 09/12/24 17:01 Troponin T Hi Sens 6Hr Delta 11.0 ng/L (0-12) 09/12/24 17:01 Total Protein 5.4 g/dL (6.6-8.7) L 09/24/24 05:44 Albumin 2.7 g/dL (3.5-5.2) L 09/24/24 05:44 Globulin 2.7 g/dL (1.3-4.6) 09/24/24 05:44 Triglycerides 48 mg/dL (0-150) 09/13/24 04:14 Cholesterol 106 mg/dL (0-200) 09/13/24 04:14 LDL Cholesterol, Calc 48 mg/dL (50-129) L 09/13/24 04:14 HDL Cholesterol 48 mg/dL (60-100) L 09/13/24 04:14 LDL/HDL Ratio 1.00 RATIO (0.00-3.22) 09/13/24 04:14 Cholesterol/HDL Ratio 2.21 mg/dL (0.0-4.40) 09/13/24 04:14 Procalcitonin 0.12 ng/mL (0-0.5) 09/12/24 10:13 TSH 3.99 uIU/mL (0.27-4.20) 09/12/24 12:09 Urine Color Yellow (Yellow) 09/13/24 01:28 Urine Appearance Clear (CLEAR) 09/13/24 01:28 Urine pH 5.5 (5-7) 09/13/24 01:28 Ur Specific [place] 1.014 (1.005-1.030) 09/13/24 01:28 Urine Protein 2+ (Negative) A 09/13/24 01: Urine Glucose (UA) Negative (Normal) 09/13/24 01: Urine Ketones Negative (Negative) 09/13/24 01:28 Urine Blood 3+ (Negative) A 09/13/24 01:28 Urine Nitrate Negative (Negative) 09/13/24 01:28 Urine Bilirubin Negative (Negative) 09/13/24 01:28 Urine Urobilinogen 1.0 mg/dL (Negative) 09/13/24 01:28 Ur Leukocyte Esterase 1+ (Negative) A 09/13/24 01:28 Urine RBC 40-50 /hpf (0-2) H 09/13/24 01:28 Urine WBC 15-25 /hpf (0-5) H 09/13/24 01:28 Ur Squamous Epith Cells None /hpf (0-5) 09/13/24 01:28 Amorphous Sediment Not Reportable 09/13/24 01:28 Urine Bacteria None /hpf (NONE) 09/13/24 01:28 C. difficile (PCR) Negative (Negative) 09/24/24 10:00 Blood Type O Positive 09/16/24 10:03 Rho(D) Type Rh positive 09/16/24 10:03 Antibody Screen Negative 09/16/24 10:03 Vitals Last Vital Signs Temp 97.7 F 09/24/24 12:00 Pulse 78 09/24/24 12:34 Resp 17 09/24/24 12:34 BP 141/65 09/24/24 12:34 Pulse Ox 96 09/24/24 12:34 O2 Del Method Nasal Cannula 09/24/24 14:13 O2 Flow Rate 2 09/24/24 08:14 Discharge Plan Discharge Patient Disposition: Xfer SNF Condition: Stable Prescriptions: New polyethylene glycol 3350 [Miralax] 17 gram powder in packet 17 g PO DAILY Qty: 30 6RF acetaminophen 325 mg Tablet 650 mg PO Q6H PRN (Reason: Mild/Mod Pain Or Temp >/= 101) Qty: 0 0RF carvedilol 6.25 mg Tablet 6.25 mg PO BID 30 Days Qty: 60 0RF clonidine 0.3 mg/24 hr Patch Weekly 1 patch transdermal Q7D 30 Days Qty: 30 0RF Continued pantoprazole 40 mg tablet,delayed release (DR/EC) 40 mg PO QAM hydrocodone-acetaminophen 10-325 mg tablet 1 tab PO Q6H PRN (Reason: Pain, Moderate) albuterol sulfate 2.5 mg /3 mL (0.083 %) solution for nebulization 2.5 mg inhalation Q4H PRN (Reason: Shortness Of Breath Or Wheezing) tamsulosin 0.4 mg capsule 0.4 mg PO BEDTIME@22 ropinirole 0.5 mg tablet 0.5 mg PO BEDTIME@22 Qty: 30 2RF levothyroxine 25 mcg capsule 50 mcg PO QAM trazodone 50 mg tablet 50 mg PO BEDTIME nitroglycerin [Nitrostat] 0.4 mg Tablet, Sublingual 0.4 mg SUBLINGUAL Q5M PRN (Reason: Chest Pain) Rx Instructions: do not exceed 3 doses per episode potassium chloride 10 mEq tablet extended release 10 meq PO DAILY@07 bupropion HCl 200 mg tablet sustained-release 12 hr 200 mg PO BID insulin lispro [Humalog KwikPen Insulin] 100 unit/mL insulin pen 29 sliding scale dose SUBCUT TID ranolazine 500 mg Tablet Extended Release 12 Hr 500 mg PO BID Qty: 60 0RF isosorbide mononitrate 60 mg tablet extended release 24 hr 60 mg PO DAILY insulin glargine [Lantus Solostar U-100 Insulin] 100 unit/mL (3 mL) insulin pen 30 unit SUBCUT QAM aspirin 81 mg Tablet,Delayed Release (Dr/Ec) 81 mg PO DAILY@07 Qty: 60 0RF Brilinta 90 mg tablet 90 mg PO BID@, Qty: 120 0RF bumetanide 2 mg tablet 2 mg PO DAILY Qty: 60 3RF atorvastatin 80 mg Tablet 80 mg PO BEDTIME ondansetron HCl 4 mg Tablet 4 mg PO Q4H PRN (Reason: Nausea And Vomiting) phenazopyridine 200 mg Tablet 200 mg PO Q8H PRN (Reason: Urinary Retention) docusate sodium 100 mg Capsule 100 mg PO BID calcium carbonate 500 mg calcium (1,250 mg) Tablet,Chewable 1,000 mg PO DAILY Discontinued cholecalciferol (vitamin D3) 1,250 mcg (50,000 unit) capsule 50,000 unit PO Q7D Rx Instructions: Takes on Sat acetaminophen 650 mg Tablet Extended Release 1,300 mg PO Q8H PRN (Reason: Pain) metoprolol tartrate 50 mg tablet 50 mg PO BID Qty: 60 3RF Discharge Orders: Discharge Order (Routine); Ordered 09/24/24 Ordered By: Shelli Aguiar Referrals: [facility] [Outside] Zurdo Howe MD [Physician] - (We have notified your physician's clinic of the need for a follow-up appointment to be scheduled. If you have not heard from them within the next 2 business days, please call them directly. ) Niko Jerez MD [Primary Care Provider] - Discharge Diet: Usual diet Discharge Activity: Resume usual activity Patient Instructions: Clonidine (By mouth), Acetaminophen/Codeine (By mouth), Carvedilol (By mouth), Polyethylene Glycol 3350 (By mouth) (Miralax, Healthylax..., Acute Wound Care (DC), Bowel Obstruction (DC), Post Anesthesia Care Activity Restrictions/Additional Instructions: General Surgery instructions: ? Please move as much as possible, attempt to walk and work with physical therapy as this will speed up the recovery and improve your GI motility. ? No heavy lifting, nothing more than 10 pounds over the next 4 to 6 weeks. ? Keep your binder on when you are out of bed while you are in bed you can release your binder. ? Return to the hospital if you have fever, chills, severe abdominal pain associated with nausea and vomiting or if you have purulent discharge from your wounds. Discharge Attestations Time Spent in Discharge Care*: greater than 30 min Status at Discharge: Cognitive status at discharge: cognitively intact , Behavioral status at discharge: cooperative , Quality Metrics Clinical Quality Measures [ No reported AMI, CVA or VTE this stay] Coding Level of Care Code Acute Code for Chg Fwd Diagnoses GERD (gastroesophageal reflux disease) K21.9 Small bowel obstruction K56.609 Fecal impaction in rectum K56.41 Obesity E66.9
== END 2024-09-24 15:35 | disposition skilled nursing facility (03) | DRG 329 ==
LOC: ER 09:39 → ER IP 17:24 → ICU 17:55 → ER IP 09-13 10:59 → CSU 09-15 14:46
PROVIDERS: Hospitalist; Internal Medicine; Surgery; Admitting Provider Student in an Organized Health Care Education/Training Program; Emergency Provider Family Medicine; PCP Internal Medicine; Visit Provider Student in an Organized Health Care Education/Training Program
PROC: 30233R1 Transfusion of Nonautologous Platelets into Peripheral Vein, Percutaneous Approach (ICD-10-PCS; CPT 49320; principal; 2024-09-17 11:00)
PROC: 30233R1 Transfusion of Nonautologous Platelets into Peripheral Vein, Percutaneous Approach (ICD-10-PCS; CPT 49000; 2024-09-17 11:00)
PROC: 30233R1 Transfusion of Nonautologous Platelets into Peripheral Vein, Percutaneous Approach (ICD-10-PCS; 2024-09-17 11:00)
PROC: 30233R1 Transfusion of Nonautologous Platelets into Peripheral Vein, Percutaneous Approach (ICD-10-PCS; 2024-09-17 11:00)
DX: K56.52 Intestinal adhesions [bands] with complete obstruction (principal); I21.4 Non-ST elevation (NSTEMI) myocardial infarction; I50.23 Acute on chronic systolic (congestive) heart failure; I13.0 Hypertensive heart and chronic kidney disease with heart failure and stage 1 through stage 4 chronic kidney disease, or unspecified chronic kidney disease; Z68.42 Body mass index [BMI] 45.0-49.9, adult; K21.9 Gastro-esophageal reflux disease without esophagitis; K56.41 Fecal impaction; E66.01 Morbid (severe) obesity due to excess calories; I25.10 Atherosclerotic heart disease of native coronary artery without angina pectoris; E11.22 Type 2 diabetes mellitus with diabetic chronic kidney disease; N18.30 Chronic kidney disease, stage 3 unspecified; Z79.4 Long term (current) use of insulin; I16.0 Hypertensive urgency; G47.33 Obstructive sleep apnea (adult) (pediatric); K43.9 Ventral hernia without obstruction or gangrene; Z66 Do not resuscitate; E87.6 Hypokalemia; F32.A Depression, unspecified; D64.9 Anemia, unspecified; E78.5 Hyperlipidemia, unspecified; Z99.3 Dependence on wheelchair; Z95.5 Presence of coronary angioplasty implant and graft; Z86.73 Personal history of transient ischemic attack (TIA), and cerebral infarction without residual deficits; Z79.82 Long term (current) use of aspirin; Z79.02 Long term (current) use of antithrombotics/antiplatelets
CPT/HCPCS: 36415; 36416; 36573; 36592; 71045; 71250; 74018; 74176; 80048; 80053; 80061; 81001; 82274; 82962; 83036; 83540; 83550; 83605; 83735; 84100; 84145; 84443; 84484; 85025; 85378; 85730; 86850; 86900; 87040; 87086; 87493; 88307; 93005; 93308; 94640; 94664; 96365; 96366; 96372; 96375; 96376; 99285; A4216; C1751; J0131; J0360; J1171; J1644; J1815; J1940; J2060; J2185; J2250; J2270; J2405; J3010; J3480; J3490; J7030; J7050; J7614; J7644; J9999; P9035; P9045; Q9963

== ENCOUNTER → 2024-10-15 10:53 | Outpatient (BNVA) | payer MEDICARE, MEDICAID, SELFPAY | PROVIDERS: PCP Internal Medicine; Referring Provider Student in an Organized Health Care Education/Training Program; Visit Provider Surgery | DX: R19.4 Change in bowel habit (principal); E66.9 Obesity, unspecified; Z98.890 Other specified postprocedural states; Z68.42 Body mass index [BMI] 45.0-49.9, adult | CPT/HCPCS: 99024 ==

== ENCOUNTER 2024-10-22 18:28 | Emergency (ER) | payer MEDICARE, MEDICAID, SELFPAY ==
[2024-10-22 18:31] VITALS: BP 134/45; PULSE 66; RESP 18; TEMP 36.6; O2SAT 97; BMI 48.3
--- NOTE | 2024-10-22 18:39 | PC.NURSE ---
pt is currently only alert and oriented to herself
[2024-10-22 18:41] LABS: Glucose Point of Care 139 mg/dL (70-110)
--- NOTE | 2024-10-22 18:59 | ECG_ITS ---
[facility] 2024-[facility]-22 Pat Name: Watson Bridges Department: Room: Gender: Female Customer Service Voice: : [id number] Requested By: Jonathan Cardenas Order Number: [id number] Aleks MD: Denisse Rodriguez M.D. Measurements Intervals [place] Rate: 64 P: -18 IA: 151 QRS: 6 QRSD: 108 T: 153 QT: 426 QTc: 441 Interpretive Statements SINUS RHYTHM. nonspecific T wave changes LOW QRS VOLTAGE IN EXTREMITY LEADS [QRS DEFLECTION < 0.5 mV IN LIMB LEADS] POSSIBLE INFERIOR MYOCARDIAL INFARCTION , PROBABLY OLD [30 ms Q WAVE IN II/aVF] Compared to ECG 09/15/2024 09:27:07 Low QRS voltage now present Myocardial infarct finding now present Electronically Signed On 10-23-2024 21:29:32 CDT by Denisse Rodriguez M.D. [email or web address]
[2024-10-22 19:04] LABS: Basophils # 0.1 10^3/uL (0.0-0.1); Basophils % 0.3 %; Eosinophils # 0.4 10^3/uL (0.0-0.8); Eosinophils % 2.6 %; Hematocrit 27.1 % (36-47); Lymphocytes # 1.6 10^3/uL (0.8-4.8); Lymphocytes % 10.4 %; Mean Corpuscular HGB Conc 28.8 g/dL (30-55); Mean Corpuscular Hemoglobin 26.5 pg (27-33); Mean Corpuscular Volume 92.2 fl (85-98); Mean Platelet Volume 8.9 fL (7.4-10.4); Monocytes # 1.3 10^3/uL (0.2-0.9); Neutrophils # 12.27 10^3/uL (1.8-7.7); Neutrophils % 78.3 %; Nucleated Red Blood Cells % 0 %; Platelet Count 366 10^3/cmm (157-399); Red Blood Count 2.94 10^6/uL (3.85-5.65); Red Cell Distribution Width 16.6 % (12.1-15.1); White Blood Count 15.66 10^3/uL (3.29-11.43)
--- NOTE | 2024-10-22 19:17 | W.ED.GENADLT ---
HPI - General Adult General: Chief complaint: General Medical Stated complaint: BS Issues Time Seen by Provider: 10/22/24 18:45 History of Present Illness: Patient is a pleasant 63-year-old female longterm resident seen for hypoglycemia. Report is that she was found to be minimally responsive with a glucose of 29. After receiving supplemental glucose, mental status has returned to normal. She denies antecedent chest pain, shortness of breath, lightheadedness, sickness, decrease in appetite or oral intake. She has not had vomiting. Despite this, she states that she is worried about her heart and thinks that she might of had a heart attack. Again she confirms that she has not had any chest pain today. She states that to her knowledge she has never had a hypoglycemic moment in the past. Related Data Home Medications ?Medication ?Instructions ?Recorded ?Confirmed tamsulosin 0.4 mg capsule 0.4 mg PO BEDTIME@01/06/23 10/15/24 nitroglycerin 0.4 mg sublingual 0.4 mg sublingual Q5M PRN Chest 01/18/23 10/15/24 tablet (Nitrostat) Pain potassium chloride 10 mEq 10 meq PO DAILY@01/18/23 10/15/24 tablet,extended release levothyroxine 25 mcg capsule 50 mcg PO QAM 05/08/23 10/15/24 hydrocodone 10 mg-acetaminophen 1 tab PO Q6H PRN Pain, Moderate 09/07/23 10/15/24 325 mg tablet pantoprazole 40 mg tablet,delayed 40 mg PO QAM 09/07/23 10/15/24 release trazodone 50 mg tablet 50 mg PO BEDTIME 09/07/23 10/15/24 bupropion HCl 200 mg tablet,12 hr 200 mg PO BID 09/14/23 10/15/24 sustained-release insulin lispro 100 unit/mL 29 sliding scale dose SUBCUT TID 09/14/23 10/15/24 subcutaneous pen (Humalog KwikPen (U-100) Insulin) insulin glargine 100 unit/mL (3 30 unit SUBCUT QAM 02/28/24 10/15/24 mL) subcutaneous pen (Lantus Solostar U-100 Insulin) isosorbide mononitrate 60 mg 60 mg PO DAILY 02/28/24 10/15/24 tablet,extended release 24 hr atorvastatin 80 mg tablet 80 mg PO BEDTIME 07/22/24 10/15/24 ondansetron HCl 4 mg tablet 4 mg PO Q4H PRN Nausea And Vomiting 07/22/24 10/15/24 albuterol sulfate 2.5 mg/3 mL 2.5 mg inhalation Q4H PRN 08/14/24 10/15/24 (0.083 %) solution for nebulization Shortness Of Breath Or Wheezing calcium carbonate 1,000 mg PO DAILY 09/12/24 10/15/24 docusate sodium 100 mg capsule 100 mg PO BID 09/12/24 10/15/24 phenazopyridine 200 mg tablet 200 mg PO Q8H PRN Urinary Retention 09/12/24 10/15/24 Previous Rx's ?Medication ?Instructions ?Recorded ropinirole 0.5 mg tablet 0.5 mg PO BEDTIME@22 #30 tabs 01/24/23 aspirin 81 mg tablet,delayed 81 mg PO DAILY@07 #60 tabs 11/23/23 release ticagrelor 90 mg tablet (Brilinta) 90 mg PO BID@07,22 #120 tabs 11/23/23 ranolazine 500 mg tablet,extended 500 mg PO BID #60 tabs 12/22/23 release,12 hr bumetanide 2 mg tablet 2 mg PO DAILY #60 tabs 03/24/24 polyethylene glycol 3350 17 gram 17 g PO DAILY #30 ea 09/23/24 oral powder packet (Miralax) acetaminophen 325 mg tablet 650 mg (2 x 325 mg) PO Q6H PRN 09/24/24 Mild/Mod Pain Or Temp >/= 101 #0 tabs carvedilol 6.25 mg tablet 6.25 mg PO BID 30 days #60 tabs 09/24/24 clonidine 0.3 mg/24 hr weekly 1 patch transdermal Q7D 30 days 09/24/24 transdermal patch #30 ea Allergies Allergy/AdvReac Type Severity Reaction Status Date / Time hyoscyamine Allergy Severe ADR-Itching Verified 10/22/24 18:38 cefdinir Allergy Unknown Verified 10/22/24 18:38 ciprofloxacin (From Cipro) Allergy hives Verified 10/22/24 18:38 citalopram Allergy effects Verified 10/22/24 18:38 speach and memory clopidogrel (From Plavix) Allergy unk Verified 10/22/24 18:38 coconut Allergy Unknown Verified 10/22/24 18:38 ibuprofen Allergy RASH/ Verified 10/22/24 18:38 SWELLING famotidine AdvReac Mild itching Verified 10/22/24 18:38 esomeprazole (From Nexium) AdvReac Unknown Verified 10/22/24 18:38 PFSH ED PFSH: Medical History Otitis media, unspecified, bilateral Elevated troponin CAD (coronary artery disease) Non-ST elevation PA (NSTEMI) DM type 2 (diabetes mellitus, type 2) Unstable angina pectoris Acute kidney injury CHF (congestive heart failure) Chest pain Status post left heart catheterization (LHC) Groin hematoma Left ACL tear Fracture of fifth toe, left, closed Derangement of lateral meniscus of right knee Derangement of medial meniscus of right knee Chronic kidney disease (CKD) Lumbar stenosis with neurogenic claudication Inability to walk Renal failure Chronic cystitis with hematuria Inability to urinate Atherosclerotic heart disease of [place] coronary artery with other forms of angina pectoris Lower extremity weakness Depression with anxiety Coronary artery disease due to type 2 diabetes mellitus Morbid obesity Generalized muscle weakness Type 2 diabetes mellitus with diabetic polyneuropathy Diabetes mellitus Small bowel strangulation Dyslipidemia Chronic cystitis Gross hematuria Osteoporosis Morbid obesity Constipation Migraine headache Bilateral lower extremity edema RLS (restless legs syndrome) GERD (gastroesophageal reflux disease) BETH (obstructive sleep apnea) CVA (cerebral vascular accident) HTN (hypertension) Pulmonary embolism, bilateral Opioid contract exists Long-term use of high-risk medication Chronic low back pain Surgical History Status post coronary artery stent placement Status post lumbar laminectomy H/O heart artery stent S/P hysterectomy S/P tonsillectomy and adenoidectomy S/P appendectomy S/P cholecystectomy Hx of total knee replacement History of partial surgical removal of colon Family History Grandfather Cancer Family/Other Myocardial infarct MOTHER, FATHER, BROTHER, SISTER Hypertension Diabetes Mother , at age 66 CAD (coronary artery disease) Father , at age 74 CAD (coronary artery disease) Sister CAD (coronary artery disease) Brother CAD (coronary artery disease) Other Stroke Denies family history of Anesthesia complication Bleeding disorder Social History Smoking and tobacco/nicotine status: never used tobacco/nicotine Alcohol intake: never Substance/Drug Use: current Substance/Drug use frequency: other Other substance/drug use details: smokes medical kashif occasionally at night to help her sleep Lives independently: Yes Marital status: Current occupational status: disabled Current gender identity: Female Special vik needs: No Physical Exam Const: COMMON NORMALS: no acute distress, patient oriented x3 and alert HENMT: COMMON NORMALS: normocephalic and atraumatic HEAD & SCALP: normocephalic and atraumatic Eye: COMMON NORMALS: Equal, round and reactive pupils present, EOMs intact bilaterally and no scleral icterus PUPIL: Yes Equal, round and reactive pupils present Resp: COMMON NORMALS: normal respiratory effort and No retractions Cardio: COMMON NORMALS: regular rate, regular rhythm and No murmurs present (Cardio) RATE: regular rate RHYTHM: regular rhythm GI: COMMON NORMALS: Normal to inspection, nondistended, normoactive bowel sounds present, Soft to palpation and non-tender PALPATION: Yes Soft to palpation Neuro: COMMON NORMALS: patient oriented x3 SENSORIUM/ORIENTATION: Yes alert Skin: COMMON NORMALS: no rashes or lesions noted GENERAL SKIN EXAM: no rashes or lesions noted Course Vital Signs: Vital signs: Vital Signs Temperature 97.8 F 10/22/24 18:31 Pulse Rate 73 10/22/24 22:51 Respiratory Rate 16 10/22/24 22:51 Blood Pressure 143/54 10/22/24 22:51 Pulse Oximetry 96 10/22/24 22:51 Oxygen Delivery Me thod Room Air 10/22/24 22:51 MDM - General Adult Medical Decision Making In summary, patient is a well-appearing 63-year-old female seen for hypoglycemic event. She was observed in the emergency department and allowed to eat and glucose was rechecked several times showing no downward trajectory. I feel is safe for her to return to her longterm and resume normal care. I believe that she has not had prior instances of hypoglycemia and will urged her to make sure that her insulin dosing matches her oral intake. She showed understanding and agrees with plan. Lab Data 10/22/24 18:57 10/22/24 18:57 Laboratory Results WBC 15.66 10^3/uL (3.29-11.43) H 10/22/24 18:57 RBC 2.94 10^6/uL (3.85-5.65) L 10/22/24 18:57 Hgb 7.80 g/dL (11.27-16.99) L 10/22/24 18:57 Hct 27.1 % (36-47) L 10/22/24 18:57 MCV 92.2 fl (85-98) 10/22/24 18:57 MCH 26.5 pg (27-33) L 10/22/24 18:57 MCHC 28.8 g/dL (30-55) L 10/22/24 18:57 RDW 16.6 % (12.1-15.1) H 10/22/24 18:57 Plt Count 366 10^3/cmm (157-399) 10/22/24 18:57 MPV 8.9 fL (7.4-10.4) 10/22/24 18:57 Neut % (Auto) 78.3 % 10/22/24 18:57 Lymph % (Auto) 10.4 % 10/22/24 18:57 [place] % (Auto) 8.0 % 10/22/24 18:57 Eos % (Auto) 2.6 % 10/22/24 18:57 Baso % (Auto) 0.3 % 10/22/24 18:57 Neut # (Auto) 12.27 10^3/uL (1.8-7.7) H 10/22/24 18:57 Lymph # (Auto) 1.6 10^3/uL (0.8-4.8) 10/22/24 18:57 [place] # (Auto) 1.3 10^3/uL (0.2-0.9) H 10/22/24 18:57 Eos # (Auto) 0.4 10^3/uL (0.0-0.8) 10/22/24 18:57 Baso # (Auto) 0.1 10^3/uL (0.0-0.1) 10/22/24 18:57 Nucleated RBC % (auto) 0 % 10/22/24 18:57 Nucleated RBCs # 0.0 /100WBC 10/22/24 18:57 Sodium 136 mmol/L (136-145) 10/22/24 18:57 Potassium 4.1 mmol/L (3.5-5.1) 10/22/24 18:57 Chloride 102 mmol/L (98-107) 10/22/24 18:57 Carbon Dioxide 23 mmol/L (22-29) 10/22/24 18:57 Anion Gap 15.1 (5-19) 10/22/24 18:57 BUN 35 mg/dL (8-23) H 10/22/24 18:57 Creatinine 1.7 mg/dL (0.5-0.9) H 10/22/24 18:57 GFR Calculation 30.6 mL/min (90-130) L 10/22/24 18:57 Glucose 84 mg/dL (65-115) 10/22/24 18:57 POC Glucose 112 mg/dL (70-110) H 10/22/24 20:09 Calculated Osmolality 289 mOsm/kg (285-295) 10/22/24 18:57 Calcium 8.5 mg/dL (8.5-10.5) 10/22/24 18:57 Total Bilirubin 0.2 mg/dL (0.15-1.2) 10/22/24 18:57 AST 9 U/L (0-32) 10/22/24 18:57 ALT 8 U/L (0-33) 10/22/24 18:57 Alkaline Phosphatase 113 U/L (35-105) H 10/22/24 18:57 Total Protein 5.8 g/dL (6.6-8.7) L 10/22/24 18:57 Albumin 2.5 g/dL (3.5-5.2) L 10/22/24 18:57 Globulin 3.3 g/dL (1.3-4.6) 10/22/24 18:57 No radiology studies performed this visit Discharge Plan Discharge Patient Disposition: Home Clinical Impression: Hypoglycemia Condition: Stable Prescriptions: No Action pantoprazole 40 mg tablet,delayed release (DR/EC) 40 mg PO QAM hydrocodone-acetaminophen 10-325 mg tablet 1 tab PO Q6H PRN (Reason: Pain, Moderate) albuterol sulfate 2.5 mg /3 mL (0.083 %) solution for nebulization 2.5 mg inhalation Q4H PRN (Reason: Shortness Of Breath Or Wheezing) tamsulosin 0.4 mg capsule 0.4 mg PO BEDTIME@22 ropinirole 0.5 mg tablet 0.5 mg PO BEDTIME@22 Qty: 30 2RF levothyroxine 25 mcg capsule 50 mcg PO QAM trazodone 50 mg tablet 50 mg PO BEDTIME nitroglycerin [Nitrostat] 0.4 mg Tablet, Sublingual 0.4 mg SUBLINGUAL Q5M PRN (Reason: Chest Pain) Rx Instructions: do not exceed 3 doses per episode potassium chloride 10 mEq tablet extended release 10 meq PO DAILY@07 bupropion HCl 200 mg tablet sustained-release 12 hr 200 mg PO BID insulin lispro [Humalog KwikPen Insulin] 100 unit/mL insulin pen 29 sliding scale dose SUBCUT TID ranolazine 500 mg Tablet Extended Release 12 Hr 500 mg PO BID Qty: 60 0RF isosorbide mononitrate 60 mg tablet extended release 24 hr 60 mg PO DAILY insulin glargine [Lantus Solostar U-100 Insulin] 100 unit/mL (3 mL) insulin pen 30 unit SUBCUT QAM aspirin 81 mg Tablet,Delayed Release (Dr/Ec) 81 mg PO DAILY@07 Qty: 60 0RF Brilinta 90 mg tablet 90 mg PO BID@07,22 Qty: 120 0RF bumetanide 2 mg tablet 2 mg PO DAILY Qty: 60 3RF atorvastatin 80 mg Tablet 80 mg PO BEDTIME ondansetron HCl 4 mg Tablet 4 mg PO Q4H PRN (Reason: Nausea And Vomiting) phenazopyridine 200 mg Tablet 200 mg PO Q8H PRN (Reason: Urinary Retention) docusate sodium 100 mg Capsule 100 mg PO BID calcium carbonate 500 mg calcium (1,250 mg) Tablet,Chewable 1,000 mg PO DAILY polyethylene glycol 3350 [Miralax] 17 gram powder in packet 17 g PO DAILY Qty: 30 6RF acetaminophen 325 mg Tablet 650 mg PO Q6H PRN (Reason: Mild/Mod Pain Or Temp >/= 101) Qty: 0 0RF carvedilol 6.25 mg Tablet 6.25 mg PO BID 30 Days Qty: 60 0RF clonidine 0.3 mg/24 hr Patch Weekly 1 patch transdermal Q7D 30 Days Qty: 30 0RF Discharge Orders: Discharge ED (Routine); Ordered 04/15/25 Ordered By: Jonathan Frye Referrals: Niko Jerez MD [Primary Care Provider] - Discharge Diet: Usual diet Discharge Activity: Resume usual activity Print Language: Malawian Coding Level of Care Code ED Consumer Affairs Director for Romie Everett
[2024-10-22 19:21] LABS: Alanine Aminotransferase 8 U/L (0-33); Albumin Level 2.5 g/dL (3.5-5.2); Alkaline Phosphatase 113 U/L (35-105); Anion Gap 15.1 (5-19); Aspartate Amino Transferase 9 U/L (0-32); Blood Urea Nitrogen 35 mg/dL (8-23); Calcium 8.5 mg/dL (8.5-10.5); Carbon Dioxide 23 mmol/L (22-29); Chloride 102 mmol/L (98-107); Creatinine Clr Calc Pharmacy 44.4224; Globulin 3.3 g/dL (1.3-4.6); Glomerular Filtration Rate 30.6 mL/min (90-130); Glucose 84 mg/dL (65-115); Osmolality Calculated 289 mOsm/kg (285-295); Potassium 4.1 mmol/L (3.5-5.1); Sodium 136 mmol/L (136-145); Total Bilirubin 0.2 mg/dL (0.15-1.2); Total Protein 5.8 g/dL (6.6-8.7)
[2024-10-22 20:12] LABS: Glucose Point of Care 112 mg/dL (70-110)
[2024-10-22 22:48] VITALS: BP 143/54; PULSE 73; RESP 16; O2SAT 96
[2024-10-22 22:51] VITALS: BP 143/54; PULSE 73; RESP 16; O2SAT 96
== END 2024-10-22 22:51 | disposition home or self-care (01) ==
PROVIDERS: Emergency Medicine; Emergency Provider Student in an Organized Health Care Education/Training Program; PCP Internal Medicine
DX: E11.649 Type 2 diabetes mellitus with hypoglycemia without coma (principal); E78.5 Hyperlipidemia, unspecified; E11.22 Type 2 diabetes mellitus with diabetic chronic kidney disease; I13.0 Hypertensive heart and chronic kidney disease with heart failure and stage 1 through stage 4 chronic kidney disease, or unspecified chronic kidney disease; N18.9 Chronic kidney disease, unspecified; I50.9 Heart failure, unspecified; I25.10 Atherosclerotic heart disease of native coronary artery without angina pectoris
CPT/HCPCS: 36415; 36416; 80053; 82962; 85025; 93005; 99284

== ENCOUNTER 2024-12-28 10:20 | Emergency (ER) | payer MEDICARE, MEDICAID, SELFPAY ==
[2024-12-28 10:29] VITALS: BP 151/99; PULSE 77; RESP 18; TEMP 36.8; O2SAT 98
--- NOTE | 2024-12-28 10:31 | XRR_ITS ---
PROCEDURE INFORMATION: Exam: XR Chest Exam date and time: 12/28/2024 11:04 AM Age: 64 years old Clinical indication: SOB; Dyspnea; Cough; Additional info: Dyspnea/cough TECHNIQUE: Imaging protocol: Radiologic exam of the chest. Views: 1 view. COMPARISON: CR XR chest 1V portable [id number] 09/16/2024 8:28 AM FINDINGS: Lungs: There is an opacity in the right hilar and infrahilar region which is more prominent. Linear opacity in the right midlung again noted. Prominence of the left upper lung pulmonary vasculature which could represent pulmonary vascular redistribution. Pleural spaces: Unremarkable. No pleural effusion. No pneumothorax. Heart/Mediastinum: Unremarkable. No cardiomegaly. Bones/joints: Unremarkable. XR/XR chest 1V portable [id number] IMPRESSION: Opacity over the right hilar and infrahilar region with underlying adenopathy or mass difficult to exclude. At a minimum, recommend short-term follow-up chest radiographs.
--- NOTE | 2024-12-28 10:36 | W.ED.SOB ---
HPI - SOB/Dyspnea General: Chief Complaint: Shortness of Breath/Dyspnea Stated Complaint: sob Time Seen by Provider: 12/28/24 10:28 History of Present Illness: HPI Narrative: 64-year-old female presents emergency room complaining of shortness of breath. Increased bilateral lower extremity swelling. At baseline patient wears 2 L by nasal cannula. O2 sat was 88% at baseline on supplemental oxygen at 2 L/min improved to 96% with a nebulizer by EMS. Patient reporting some mild chest discomfort as well. Patient reports that she is short of breath. She has swelling of lower extremities but cannot clarify for me whether or not it is worsening. When I came in the room we decreased her oxygen to her baseline she maintain her oxygen sat at 99% continuously. Associated symptoms: Deny abdominal pain, chest pain or fever(s) Related Data Home Medications ?Medication ?Instructions ?Recorded ?Confirmed tamsulosin 0.4 mg capsule 0.4 mg PO BEDTIME@01/06/23 12/28/24 nitroglycerin 0.4 mg sublingual 0.4 mg sublingual Q5M PRN Chest 01/18/23 12/28/24 tablet (Nitrostat) Pain potassium chloride 10 mEq 10 meq PO DAILY@01/18/23 12/28/24 tablet,extended release hydrocodone 10 mg-acetaminophen 1 tab PO Q6H PRN Pain, Moderate 09/07/23 12/28/24 325 mg tablet pantoprazole 40 mg tablet,delayed 40 mg PO QAM 09/07/23 12/28/24 release trazodone 50 mg tablet 50 mg PO BEDTIME 09/07/23 12/28/24 insulin lispro 100 unit/mL 10 unit SUBCUT TID 09/14/23 12/28/24 subcutaneous pen (Humalog KwikPen (U-100) Insulin) insulin glargine 100 unit/mL (3 30 unit SUBCUT QAM 02/28/24 12/28/24 mL) subcutaneous pen (Lantus Solostar U-100 Insulin) isosorbide mononitrate 60 mg 60 mg PO DAILY 02/28/24 12/28/24 tablet,extended release 24 hr atorvastatin 80 mg tablet 80 mg PO BEDTIME 07/22/24 12/28/24 ondansetron HCl 4 mg tablet 4 mg PO Q4H PRN Nausea And Vomiting 07/22/24 12/28/24 albuterol sulfate 2.5 mg/3 mL 2.5 mg inhalation Q4H PRN 08/14/24 12/28/24 (0.083 %) solution for nebulization Shortness Of Breath Or Wheezing calcium carbonate 1,000 mg PO DAILY 09/12/24 12/28/24 docusate sodium 100 mg capsule 100 mg PO BID 09/12/24 12/28/24 carvedilol 6.25 mg tablet 6.25 mg PO BID 11/25/24 12/28/24 alprazolam 0.25 mg tablet 0.25 mg PO BID 12/28/24 12/28/24 escitalopram oxalate 20 mg tablet 20 mg PO DAILY 12/28/24 12/28/24 guaifenesin 600 mg tablet, 600 mg PO Q12H PRN Congestion 12/28/24 12/28/24 extended release 12 hr levothyroxine 50 mcg tablet 50 mcg PO DAILY 12/28/24 12/28/24 quetiapine 50 mg tablet,extended 100 mg PO BEDTIME 12/28/24 12/28/24 release 24 hr Previous Rx's ?Medication ?Instructions ?Recorded ropinirole 0.5 mg tablet 0.5 mg PO BEDTIME@22 #30 tabs 01/24/23 aspirin 81 mg tablet,delayed 81 mg PO DAILY@07 #60 tabs 11/23/23 release ticagrelor 90 mg tablet (Brilinta) 90 mg PO BID@07,22 #120 tabs 11/23/23 ranolazine 500 mg tablet,extended 500 mg PO BID #60 tabs 12/22/23 release,12 hr bumetanide 2 mg tablet 2 mg PO DAILY #60 tabs 03/24/24 polyethylene glycol 3350 17 gram 17 g PO DAILY #30 ea 09/23/24 oral powder packet (Miralax) acetaminophen 325 mg tablet 650 mg (2 x 325 mg) PO Q6H PRN 09/24/24 Mild/Mod Pain Or Temp >/= 101 #0 tabs Allergies Allergy/AdvReac Type Severity Reaction Status Date / Time hyoscyamine Allergy Severe ADR-Itching Verified 12/16/24 13:18 cefdinir Allergy Unknown Verified 12/16/24 13:18 ciprofloxacin (From Cipro) Allergy hives Verified 12/16/24 13:18 citalopram Allergy effects Verified 12/16/24 13:18 speach and memory clopidogrel (From Plavix) Allergy unk Verified 12/16/24 13:18 coconut Allergy Unknown Verified 12/16/24 13:18 ibuprofen Allergy RASH/ Verified 12/16/24 13:18 SWELLING famotidine AdvReac Mild itching Verified 12/16/24 13:18 esomeprazole (From Nexium) AdvReac Unknown Verified 12/16/24 13:18 Review of Systems Const: Denies: fever(s) or chills Card: Denies: chest pain Resp: Reports: dyspnea GI: Denies: abdominal pain : Denies: dysuria, urinary frequency or urinary urgency Musc: Denies: neck pain or back pain Skin/Breast: Denies: rash PFSH ED PFSH: Medical History Otitis media, unspecified, bilateral Elevated troponin CAD (coronary artery disease) Non-ST elevation WI (NSTEMI) DM type 2 (diabetes mellitus, type 2) Unstable angina pectoris Acute kidney injury CHF (congestive heart failure) Chest pain Status post left heart catheterization (LHC) Groin hematoma Left ACL tear Fracture of fifth toe, left, closed Derangement of lateral meniscus of right knee Derangement of medial meniscus of right knee Chronic kidney disease (CKD) Lumbar stenosis with neurogenic claudication Inability to walk Renal failure Chronic cystitis with hematuria Inability to urinate Atherosclerotic heart disease of [place] coronary artery with other forms of angina pectoris Lower extremity weakness Depression with anxiety Coronary artery disease due to type 2 diabetes mellitus Morbid obesity Generalized muscle weakness Type 2 diabetes mellitus with diabetic polyneuropathy Diabetes mellitus Small bowel strangulation Dyslipidemia Chronic cystitis Gross hematuria Osteoporosis Morbid obesity Constipation Migraine headache Bilateral lower extremity edema RLS (restless legs syndrome) GERD (gastroesophageal reflux disease) BETH (obstructive sleep apnea) CVA (cerebral vascular accident) HTN (hypertension) Pulmonary embolism, bilateral Opioid contract exists Long-term use of high-risk medication Chronic low back pain Surgical History Status post coronary artery stent placement Status post lumbar laminectomy H/O heart artery stent S/P hysterectomy S/P tonsillectomy and adenoidectomy S/P appendectomy S/P cholecystectomy Hx of total knee replacement History of partial surgical removal of colon Family History Grandfather Cancer Family/Other Myocardial infarct MOTHER, FATHER, BROTHER, SISTER Hypertension Diabetes Mother , at age 66 CAD (coronary artery disease) Father , at age 74 CAD (coronary artery disease) Sister CAD (coronary artery disease) Brother CAD (coronary artery disease) Other Stroke Denies family history of Anesthesia complication Bleeding disorder Social History Smoking and tobacco/nicotine status: never used tobacco/nicotine Alcohol intake: never Substance/Drug Use: current Substance/Drug use frequency: other Other substance/drug use details: smokes medical marijauna occasionally at night to help her sleep Lives independently: Yes Marital status: Current occupational status: disabled Current gender identity: Female Special vik needs: No Physical Exam Const: GENERAL APPEARANCE: cooperative ORIENTATION/CONSCIOUSNESS: Yes awake, Yes oriented to person, Yes oriented to place and Yes oriented to time HENMT: COMMON NORMALS: normocephalic, atraumatic and hearing grossly normal bilaterally HEAD & SCALP: normocephalic and atraumatic Resp: COMMON NORMALS: normal respiratory effort, No retractions and No use of accessory muscles AUSCULTATION: wheezes Cardio: COMMON NORMALS: regular rate, regular rhythm and No murmurs present (Cardio) RATE: regular rate RHYTHM: regular rhythm GI: COMMON NORMALS: Soft to palpation and No hepatosplenomegaly present AUSCULTATION: Yes normoactive bowel sounds PALPATION: Yes Soft to palpation, No Tenderness to palpation present (GI), No Guarding due to palpation present (GI) and Yes No hepatosplenomegaly present Extremity: COMMON NORMALS: normal to inspection, capillary refill normal, no clubbing, cyanosis or edema, no calf tenderness and no pedal edema Neuro: SENSORIUM/ORIENTATION: Yes oriented to person, Yes oriented to place and Yes oriented to time Skin: COMMON NORMALS: no rashes or lesions noted GENERAL SKIN EXAM: no rashes or lesions noted Course Vital Signs: Vital signs: Vital Signs Temperature 98.2 F 12/28/24 10:29 Pulse Rate 82 12/28/24 14:08 Respiratory Rate 19 H 12/28/24 14:08 Blood Pressure 179/119 12/28/24 14:08 Pulse Oximetry 94 12/28/24 14:08 Oxygen Delivery Me thod Nasal Cannula 12/28/24 12:09 Oxygen Flow Rate 2 12/28/24 12:09 MDM - SOB/Dyspnea Medical Decision Making Patient initially came in on 4 L/min we are able to titrate her down to 2 L and 1 while she was at rest and then bed without any hypoxia. Patient given Lasix here troponin is elevated but her delta is not significant. EKG does not show any acute changes not having any chest pain she her breathing has improved after diuresis here. Will discharge her home increase her Bumex to twice daily for 5 days increase her potassium to 10 mill equivalents 3 times daily for 5 days and check a BMP in 4 to 5 days while at the [place]. Medical Records I reviewed the patient's medical records. Lab Data I reviewed the patient's lab results. 12/28/24 10:30 12/28/24 10:30 Labs/Radiology: Radiology Impressions Chest X-Ray 12/28/24 10:31 IMPRESSION: Opacity over the right hilar and infrahilar region with underlying adenopathy or mass difficult to exclude. At a minimum, recommend short-term follow-up chest radiographs. Laboratory Results WBC 7.34 10^3/uL (3.29-11.43) 12/28/24 10:30 RBC 3.09 10^6/uL (3.85-5.65) L 12/28/24 10:30 Hgb 8.10 g/dL (11.27-16.99) L 12/28/24 10:30 Hct 26.5 % (36-47) L 12/28/24 10:30 MCV 85.8 fl (85-98) 12/28/24 10:30 MCH 26.2 pg (27-33) L 12/28/24 10:30 MCHC 30.6 g/dL (30-55) 12/28/24 10:30 RDW 16.8 % (12.1-15.1) H 12/28/24 10:30 Plt Count 271 10^3/cmm (157-399) 12/28/24 10:30 MPV 9.4 fL (7.4-10.4) 12/28/24 10:30 Neut % (Auto) 53.3 % 12/28/24 10:30 Lymph % (Auto) 32.6 % 12/28/24 10:30 Maverick % (Auto) 5.6 % 12/28/24 10:30 Eos % (Auto) 7.9 % 12/28/24 10:30 Baso % (Auto) 0.5 % 12/28/24 10:30 Neut # (Auto) 3.91 10^3/uL (1.8-7.7) 12/28/24 10:30 Lymph # (Auto) 2.4 10^3/uL (0.8-4.8) 12/28/24 10:30 Maverick # (Auto) 0.4 10^3/uL (0.2-0.9) 12/28/24 10:30 Eos # (Auto) 0.6 10^3/uL (0.0-0.8) 12/28/24 10:30 Baso # (Auto) 0.0 10^3/uL (0.0-0.1) 12/28/24 10:30 Nucleated RBC % (auto) 0 % 12/28/24 10:30 Nucleated RBCs # 0.0 /100WBC 12/28/24 10:30 Specimen Type Arterial 12/28/24 11:10 Sample Site Radial, left 12/28/24 11:10 ABG pH 7.40 (7.35-7.45) 12/28/24 11:10 ABG pCO2 45.8 mmHg (35-45) H 12/28/24 11:10 ABG pO2 73.4 mmHg (80.0-100.0) L 12/28/24 11:10 ABG PO2/FiO2 Ratio 262 12/28/24 11:10 ABG HCO3 28.3 mmol/L (22-26) H 12/28/24 11:10 ABG O2 Saturation 95.6 12/28/24 11:10 ABG Base Excess 3.1 mmol/L (-2.0-2.0) H 12/28/24 11:10 Peter Test Pos 12/28/24 11:10 A-a O2 Gradient 9.1 mmHg (5-10) 12/28/24 11:10 Hematocrit 26.5 % (37-47) L 12/28/24 11:10 Hgb O2 Saturation 93.8 % (95-100) L 12/28/24 11:10 Carboxyhemoglobin 1.5 %THgb (0.4-20.1) 12/28/24 11:10 Methemoglobin 0.4 % (0.4-1.5) 12/28/24 11:10 Total Hemoglobin 8.6 g/dL (12-16) L 12/28/24 11:10 Sodium 140.0 mmol/L (131-143) 12/28/24 11:10 Potassium 4.7 mmol/L (3.5-5.0) 12/28/24 11:10 Glucose 213.0 mg/dL (70-115) H 12/28/24 11:10 Ionized Calcium 1.2 mmol/L (1.1-1.4) 12/28/24 11:10 O2 Delivery Device Nc 12/28/24 11:10 O2 Liters/Min 2.0 % 12/28/24 11:10 FiO2 28.0 % 12/28/24 11:10 Lombardi Developer ID Broma 12/28/24 11:10 Sodium 138 mmol/L (136-145) 12/28/24 10:30 Potassium 4.9 mmol/L (3.5-5.1) 12/28/24 10:30 Chloride 102 mmol/L (98-107) 12/28/24 10:30 Carbon Dioxide 28 mmol/L (22-29) 12/28/24 10:30 Anion Gap 12.9 (5-19) 12/28/24 10:30 BUN 25 mg/dL (8-23) H 12/28/24 10:30 Creatinine 1.5 mg/dL (0.5-0.9) H 12/28/24 10:30 GFR Calculation 35.2 mL/min (90-130) L 12/28/24 10:30 Glucose 203 mg/dL (65-115) H 12/28/24 10:30 Calculated Osmolality 296 mOsm/kg (285-295) H 12/28/24 10:30 Calcium 8.6 mg/dL (8.5-10.5) 12/28/24 10:30 Total Bilirubin 0.3 mg/dL (0.15-1.2) 12/28/24 10:30 AST 6 U/L (0-32) 12/28/24 10:30 ALT 6 U/L (0-33) 12/28/24 10:30 Alkaline Phosphatase 107 U/L (35-105) H 12/28/24 10:30 Troponin T Baseline 136 ng/L (0-10) H* 12/28/24 10:30 Troponin T 120 Minute 139.0 ng/L (0-10) H 12/28/24 12:31 Delta Troponin T 3.0 ABS# (0-10) 12/28/24 12:31 C-Reactive Protein 12.8 mg/L (0.0-4.9) H 12/28/24 10:30 NT-Pro-B Natriuret Pep 2806 pg/mL (0-125) H 12/28/24 10:30 Total Protein 6.5 g/dL (6.6-8.7) L 12/28/24 10:30 Albumin 2.9 g/dL (3.5-5.2) L 12/28/24 10:30 Globulin 3.6 g/dL (1.3-4.6) 12/28/24 10:30 Urine Color Yellow (Yellow) 12/28/24 12:19 Urine Appearance Cloudy (CLEAR) A 12/28/24 12:19 Urine pH 7.0 (5-7) 12/28/24 12:19 Ur Specific Henning 1.006 (1.005-1.030) 12/28/24 12:19 Urine Protein Negative (Negative) 12/28/24 12:19 Urine Glucose (UA) Negative (Normal) 12/28/24 12:19 Urine Ketones Negative (Negative) 12/28/24 12:19 Urine Blood 2+ (Negative) A 12/28/24 12:19 Urine Nitrate Negative (Negative) 12/28/24 12:19 Urine Bilirubin Negative (Negative) 12/28/24 12:19 Urine Urobilinogen 0.2 mg/dL (Negative) 12/28/24 12:19 Ur Leukocyte Esterase 3+ (Negative) A 12/28/24 12:19 Urine RBC 21-50 /hpf (0-2) H 12/28/24 12:19 Urine WBC >100 /hpf (0-5) H 12/28/24 12:19 Ur Squamous Epith Cells 0-5 /hpf (0-5) 12/28/24 12:19 Amorphous Sediment Not Reportable 12/28/24 12:19 Urine Bacteria 1+ /hpf (NONE) H 12/28/24 12:19 Hyaline Casts 3.71 /lpf 12/28/24 12:19 All radiology interpretation(s) finalized by discharge Discharge Plan Discharge Patient Disposition: Home Clinical Impression: CHF exacerbation Condition: Stable Prescriptions: No Action pantoprazole 40 mg tablet,delayed release (DR/EC) 40 mg PO QAM hydrocodone-acetaminophen 10-325 mg tablet 1 tab PO Q6H PRN (Reason: Pain, Moderate) albuterol sulfate 2.5 mg /3 mL (0.083 %) solution for nebulization 2.5 mg inhalation Q4H PRN (Reason: Shortness Of Breath Or Wheezing) carvedilol 6.25 mg tablet 6.25 mg PO BID tamsulosin 0.4 mg capsule 0.4 mg PO BEDTIME@22 ropinirole 0.5 mg tablet 0.5 mg PO BEDTIME@22 Qty: 30 2RF trazodone 50 mg tablet 50 mg PO BEDTIME nitroglycerin [Nitrostat] 0.4 mg Tablet, Sublingual 0.4 mg SUBLINGUAL Q5M PRN (Reason: Chest Pain) Rx Instructions: do not exceed 3 doses per episode potassium chloride 10 mEq tablet extended release 10 meq PO DAILY@07 insulin lispro [Humalog KwikPen Insulin] 100 unit/mL insulin pen 10 unit SUBCUT TID ranolazine 500 mg Tablet Extended Release 12 Hr 500 mg PO BID Qty: 60 0RF isosorbide mononitrate 60 mg tablet extended release 24 hr 60 mg PO DAILY insulin glargine [Lantus Solostar U-100 Insulin] 100 unit/mL (3 mL) insulin pen 30 unit SUBCUT QAM aspirin 81 mg Tablet,Delayed Release (Dr/Ec) 81 mg PO DAILY@07 Qty: 60 0RF ticagrelor [Brilinta] 90 mg tablet 90 mg PO BID@ Qty: 120 0RF bumetanide 2 mg tablet 2 mg PO DAILY Qty: 60 3RF atorvastatin 80 mg Tablet 80 mg PO BEDTIME ondansetron HCl 4 mg Tablet 4 mg PO Q4H PRN (Reason: Nausea And Vomiting) docusate sodium 100 mg Capsule 100 mg PO BID calcium carbonate 500 mg calcium (1,250 mg) Tablet,Chewable 1,000 mg PO DAILY polyethylene glycol 3350 [Miralax] 17 gram powder in packet 17 g PO DAILY Qty: 30 6RF acetaminophen 325 mg Tablet 650 mg PO Q6H PRN (Reason: Mild/Mod Pain Or Temp >/= 101) Qty: 0 0RF alprazolam 0.25 mg tablet 0.25 mg PO BID levothyroxine 50 mcg tablet 50 mcg PO DAILY escitalopram oxalate 20 mg tablet 20 mg PO DAILY quetiapine 50 mg tablet extended release 24 hr 100 mg PO BEDTIME guaifenesin 600 mg Tablet Extended Release 12hr 600 mg PO Q12H PRN (Reason: Congestion) Discharge Orders: Discharge ED (Routine); Ordered 12/28/24 Ordered By: James Sharma Referrals: Niko Jerez MD [Primary Care Provider, Internal Medicine] Patient Instructions: Opioid Safety, Pain Management Activity Restrictions/Additional Instructions: Thank you for choosing [facility] for your healthcare needs today. It is very important that you follow up as instructed or that you return to the Emergency Department should you have concerns or if your condition changes or worsens in any way. Your evaluated in the emergency room found to have exacerbation of congestive heart failure. Recommend you increase your Bumex to 2 mg twice a day for the next 5 days. Increase your potassium to 10 mill equivalents 3 times daily for the next 5 days. Continue your oxygen at 2 L/min you may increase to 3 L/min if needed. Recommend you also use nebulizers every 4 hours as needed. Follow-up with a BMP in 3 to 4 days. Print Language: Barbadian Coding Level of Care Code ED Corporate Development Officer for Romie Everett
[2024-12-28 10:47] LABS: Basophils % 0.5 %; Eosinophils # 0.6 10^3/uL (0.0-0.8); Eosinophils % 7.9 %; Hematocrit 26.5 % (36-47); Lymphocytes # 2.4 10^3/uL (0.8-4.8); Lymphocytes % 32.6 %; Mean Corpuscular HGB Conc 30.6 g/dL (30-55); Mean Corpuscular Hemoglobin 26.2 pg (27-33); Mean Corpuscular Volume 85.8 fl (85-98); Mean Platelet Volume 9.4 fL (7.4-10.4); Monocytes # 0.4 10^3/uL (0.2-0.9); Monocytes % 5.6 %; Neutrophils # 3.91 10^3/uL (1.8-7.7); Neutrophils % 53.3 %; Nucleated Red Blood Cells % 0 %; Platelet Count 271 10^3/cmm (157-399); Red Blood Count 3.09 10^6/uL (3.85-5.65); Red Cell Distribution Width 16.8 % (12.1-15.1); White Blood Count 7.34 10^3/uL (3.29-11.43)
[2024-12-28] MEDS: ipratropium-albuterol 3 mL Neb INHALATION (10:48)
[2024-12-28 10:52] VITALS: PULSE 74; RESP 20; O2SAT 98
[2024-12-28] MEDS: FUROsemide 10 mg/mL SDV 10mL 80 MG IVP (10:54)
[2024-12-28] MEDS: methylPREDNISolone sod succ 125 mg/2 mL INJ IVP (10:54)
[2024-12-28 10:56] LABS: Alanine Aminotransferase 6 U/L (0-33); Albumin Level 2.9 g/dL (3.5-5.2); Alkaline Phosphatase 107 U/L (35-105); Anion Gap 12.9 (5-19); Aspartate Amino Transferase 6 U/L (0-32); Blood Urea Nitrogen 25 mg/dL (8-23); Calcium 8.6 mg/dL (8.5-10.5); Carbon Dioxide 28 mmol/L (22-29); Chloride 102 mmol/L (98-107); Globulin 3.6 g/dL (1.3-4.6); Glomerular Filtration Rate 35.2 mL/min (90-130); Glucose 203 mg/dL (65-115); Osmolality Calculated 296 mOsm/kg (285-295); Potassium 4.9 mmol/L (3.5-5.1); Sodium 138 mmol/L (136-145); Total Bilirubin 0.3 mg/dL (0.15-1.2); Total Protein 6.5 g/dL (6.6-8.7)
[2024-12-28 11:12] LABS: C Reactive Protein 12.8 mg/L (0.0-4.9); NT Pro B Type Natriuretic Pept 2806 pg/mL (0-125)
[2024-12-28 11:18] LABS: ABG PCO2 45.8 mmHg (35-45); Alveolar-Arterial Oxygen Gradi 9.1 mmHg (5-10); Arterial Blood Gas Hematocrit 26.5 % (37-47); Base Excess ABG 3.1 mmol/L (-2.0-2.0); Blood Gas Allen Test Pos; Blood Gas Operator Identificat BROMA; Blood Gas Sample Site Radial, left; Blood Gas Sample Type Arterial; Carboxyhemoglobin 1.5 %THgb (0.4-20.1); HCO3 ABG 28.3 mmol/L (22-26); HGB O2 Sat 93.8 % (95-100); Ionized Calcium Level - ABG 1.2 mmol/L (1.1-1.4); Methemoglobin 0.4 % (0.4-1.5); Oxygen Device NC; Oxygen Saturation ABG 95.6; PO2 ABG 73.4 mmHg (80.0-100.0); PO2 FiO2 Ratio Arterial Blood 262; Potassium Level - ABG 4.7 mmol/L (3.5-5.0); Total Hemoglobin 8.6 g/dL (12-16)
[2024-12-28 11:39] VITALS: PULSE 77; O2SAT 90
[2024-12-28 12:09] VITALS: PULSE 80; RESP 16; O2SAT 94
--- NOTE | 2024-12-28 12:32 | PC.PHAR ---
Pt is from [facility]
[2024-12-28 12:45] LABS: Bilirubin Urine Negative (Negative); Blood Urine 2+ (Negative); Glucose Urine UA Negative (Normal); Ketones Urine Negative (Negative); Leukocyte Esterase Urine 3+ (Negative); Nitrate Urine Negative (Negative); Protein Urine Negative (Negative); Specific Gravity, Urine 1.006 (1.005-1.030); Urine Appearance Cloudy (CLEAR); Urine Color Yellow (Yellow); Urobilinogen Urine 0.2 mg/dL (Negative)
[2024-12-28 12:50] LABS: Add Urine Microscopic? YES; Bacteria Urine 1+ /hpf; Hyaline Casts Urine 3.71 /lpf; RBC Urine 21-50 /hpf (0-2); Squamous Epithelial Cell Urine 0-5 /hpf (0-5); WBC Urine >100 /hpf (0-5)
[2024-12-28 13:05] LABS: Troponin(5th) Baseline 136 ng/L (0-10)
[2024-12-28 13:08] LABS: Add Urine Culture? Yes
--- NOTE | 2024-12-28 13:20 | PC.NURSE ---
this nurse ED charge performed bed change, applied clean depends
--- NOTE | 2024-12-28 13:44 | PC.NURSE ---
contacted Sandra Trinidad took report; no further questions at this time. contacted [facility] for ride back
[2024-12-28 14:08] VITALS: BP 179/119; PULSE 82; RESP 19; O2SAT 94
[2024-12-28 14:37] VITALS: BP 157/81; PULSE 87; O2SAT 92
== END 2024-12-28 14:40 | disposition home or self-care (01) ==
PROVIDERS: Emergency Provider Family Medicine; PCP Internal Medicine
DX: E11.22 Type 2 diabetes mellitus with diabetic chronic kidney disease (principal); I13.0 Hypertensive heart and chronic kidney disease with heart failure and stage 1 through stage 4 chronic kidney disease, or unspecified chronic kidney disease; N18.9 Chronic kidney disease, unspecified; I50.9 Heart failure, unspecified; E78.5 Hyperlipidemia, unspecified; Z86.73 Personal history of transient ischemic attack (TIA), and cerebral infarction without residual deficits; I25.10 Atherosclerotic heart disease of native coronary artery without angina pectoris
CPT/HCPCS: 36415; 36600; 71045; 80051; 80053; 81001; 82330; 82805; 83880; 84484; 85025; 86140; 87077; 87086; 87186; 94640; 96374; 96375; 99285; J1938; J2919; J9999

== ENCOUNTER → 2025-02-12 16:12 | Outpatient (BNVA) | payer MEDICARE, MEDICAID, SELFPAY | PROVIDERS: PCP Internal Medicine; Visit Provider Internal Medicine Cardiovascular Disease | DX: I10 Essential (primary) hypertension (principal) | CPT/HCPCS: 36415; 80048 ==

== ENCOUNTER 2025-02-25 17:10 | Emergency (ER) | payer MEDICARE, MEDICAID, SELFPAY ==
--- OUTSIDE RECORDS SUMMARY | 2025-01-24 04:20 | XMS_ITS ---
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 Name Role Phone Rk Jerez Primary Care Provider Ganesh Cobian DO Unavailable Unavailable REASON FOR VISIT [facility] visit at [place], [place] Encounters Encounter Location Date Provider Diagnosis [facility] [address] [place] [address] 01/24/2025 Rk Jerez Essential hypertension I10 ; Ischemic cardiomyopathy I25.5 ; History of coronary artery stent placement Z95.5 and Coronary artery disease involving [place] coronary artery of [place] heart without angina pectoris I25.10 Assessments Encounter Date Diagnosis (ICD Code) Assessment Notes Treatment Notes Treatment Clinical Notes Section Notes 01/24/2025 Essential hypertension (ICD-10 - I10) 01/24/2025 Ischemic cardiomyopathy (ICD-10 - I25.5) 01/24/2025 History of coronary artery stent placement (ICD-10 - Z95.5) 01/24/2025 Coronary artery disease involving [place] coronary artery of [place] heart without angina pectoris (ICD-10 - I25.10) 01/24/2025 Other Medications were reviewed. I will continue without changes. Nursing staff is to contact me with any symptoms arising. Orders signed and documented with nursing staff. Vitals taken and recorded at [facility]. Plan Of Treatment Treatment Notes Assessment Notes Other Medications were rev iewed. I will continue without changes. Nursing staff is to contact me with any symptoms arising. Orders signed and documented with nursing staff. Vitals taken and recorded at [facility]. Next Appt Details Follow Up: 4 Weeks, Reason: History and Physical Notes * HPI (History of Present Illness) Category Sub-Category Detail Notes Category Not es : The patient is seen in the half-way today for follow-up. Staff reports no new complaints. The review of systems and exam are unchanged from previous. Patient denies pain and is comfortable. Examination Category Sub-Category Detail Notes Category Not es General Examination GENERAL APPEARANCE: in no ac [place] distress. Vital signs as documented. NECK/THYROID: no JVD HEART: notable for regular rhythym, normal sounds and absence of murmurs, rubs or gallops. LUNGS: Lungs clear ABDOMEN: unremarkable, no org anomegaly , no masses, or abdominal aortic enlargement. SKIN: warm and dry, withou t overt rashes. Progress Notes * DAVIS HANDLEY EDOB: 3 (64 yo F)Acc No.[id number]:01/24/2025 Patient: DAVIS ABEBE Provider: Obdulia Jerez MD :1960 A ge:64 Y S ex:Female Date:01/24/2025 Address:[address] [place] [address] [address] [id number] Subjective: * Chief Complaints: * N ursing home visit at [place], [place] * HPI: * :: The patient is seen in the half-way today for follow-up. Staff reports no new complaints. The review of systems and exam are unchanged from previous. Patient denies pain and is comfortable. Objective: * Examination: G eneral Examination: GENERAL APPEARANCE: i n no acute distress. Vital signs as documented.. NECK/THYROID: n o JVD. SKIN: w arm and dry, without overt rashes.. HEART: n otable for regular rhythym, normal sounds and absence of murmurs, rubs or gallops. LUNGS: L ungs clear. ABDOMEN: u nremarkable, no organomegaly , no masses, or abdominal aortic enlargement.. Assessment: * Assessment: 1. E ssential hypertension - I10 (Primary) 2 . I schemic cardiomyopathy - I25.5 3 . H istory of coronary artery stent placement - Z95.5 4 .?Coronary artery disease involving [place] coronary artery of [place] heart without angina pectoris - I25.10 Plan: * Treatment: * Procedure Codes: 9 9309 SNF CARE SUBSEQ * Follow Up: 4 Weeks Billing Information: * Procedure Codes: 76085 SNF CARE SUBSEQ. * Electronic signature of Tamar Jerez MD on 02/25/2025 at 05:18 PM CDT Sign off status: Pending * Provider: Obdulia Jerez MD Date: 01/24/2025 Generated for Rian flores/Melanie/Sherryitting on: 02/25/2025 05:18 PM CDT
--- OUTSIDE RECORDS SUMMARY | 2025-02-14 04:20 | XMS_ITS ---
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 I will continue without changes. Nursing staff is to contact me with any symptoms arising. Orders signed and documented with nursing staff. Vitals taken and recorded at [facility]. Plan Of Treatment Treatment Notes Assessment Notes Other Medications were rev iewed. I will continue without changes. Nursing staff is to contact me with any symptoms arising. Orders signed and documented with nursing staff. Vitals taken and recorded at [facility]. Next Appt Details Follow Up: 4 Weeks, Reason: History and Physical Notes * HPI (History of Present Illness) Category Sub-Category Detail Notes Category Not es : The patient is seen in the skilled nursing today for follow-up. Staff reports no new [...] DAVIS HANDLEY EDOB: 3 (64 yo F)Acc No.[id number]:02/14/2025 Patient: DAVIS ABEBE Provider: Obdulia Jerez MD :1960 A ge:64 Y S ex:Female Date:02/14/2025 Address:[address] [place] [address] [address], [facility], [id number] Subjective: * Chief Complaints: * N ursing home visit at [place], [place] * HPI: * :: The patient is seen in the skilled nursing today for follow-up. Staff reports no new [...] , no masses, or abdominal aortic enlargement.. Plan: * Treatment: * Procedure Codes: 9 9309 [facility] CARE SUBSEQ * Follow Up: 4 Weeks Billing Information: * Procedure Codes: 03199 SNF CARE SUBSEQ. * Electronic signature of Tamar Jerez MD on 02/25/2025 at 05:19 PM CDT Sign off status: Pending * Provider: Obdulia Jerez MD Date: 02/14/2025 Generated for Rian flores/Melanie/Sherryitting on: 02/25/2025 05:19 PM CDT
[2025-02-25] VITALS (20 sets, daily range): BP systolic 104–178; BP diastolic 59–114; PULSE 68–79; RESP 17–20; TEMP 36.9; O2SAT 97–100; BMI 49.0
--- NOTE | 2025-02-25 17:13 | XRR_ITS ---
PROCEDURE INFORMATION: Exam: XR Chest Exam date and time: 02/25/2025 5:19 PM Age: 64 years old Clinical indication: Pain; Chest pressure; Additional info: Chest pain TECHNIQUE: Imaging protocol: Radiologic exam of the chest. Views: 1 view. COMPARISON: CR XR chest 1V portable [id number] 12/28/2024 11:04 AM FINDINGS: Lungs: Scattered parenchymal opacities in the lower lobes. Possibility of pneumonia or pneumonia. Pleural spaces: Unremarkable. No pleural effusion. No pneumothorax. Heart/Mediastinum: [place] to be mild cardiomegaly. Heart maybe slightly larger than previous increased prominence of haziness of the central vessels could represent some mild vascular congestion. This should be correlated clinically. Coronary artery stents. Bones/joints: Mild right convexity thoracic scoliosis. Mild degenerative changes. Upper abdomen: Unremarkable. XR/XR chest 1V portable [id number] IMPRESSION: 1. Heart size. Slightly larger, prominence of the central vessels with a hazy outlines may represent vascular congestion. This should be correlated clinically. 2. Some patchy parenchymal opacities in the lower lobes. These could represent pneumonia. Could represent areas of edema
--- NOTE | 2025-02-25 17:13 | ECG_ITS ---
[facility]: 2025-02-25 Pat Name: Watson Bridges Department: Room: Gender: Female Pharmacy Informaticist: : [id number] Requested By: James Patel Order Number: [id number] Aleks MD: Jaiden Newell M.D. Measurements Intervals [place] Rate: 79 P: 44 NC: 172 QRS: 30 QRSD: 102 T: 85 QT: 383 QTc: 441 Interpretive Statements SINUS RHYTHM NONSPECIFIC T-WAVE ABNORMALITY Compared to ECG 10/22/2024 19:36:54 Myocardial infarct finding no longer present T-wave abnormality still present Electronically Signed On 03-01-2025 08:54:40 CDT by Jaiden Newell M.D. [email or web address]
--- OUTSIDE RECORDS SUMMARY | 2025-02-25 17:19 | XMS_ITS | Patient Health Record ---
Author Organization [facility] Address [address] [place] [address] Care Team Providers Care Academy Director Name Role Phone Rk Jerez Primary Care [...] Duration) Notes Start Date End Date Status HYDROcodone-Acetamin ophen 10-325 MG Tablet 1 tablet as needed Orally every 6 hrs; Duration: 30 days 02/07/2025 03/07/2025 Active Aspirin 81 MG Tablet Delayed Release 1 tablet Orally Once a day Active Digoxin 125 MCG Tablet 1 tablet Orally Once a day; Duration: 90 days 12/19/2022 Active Calcium Carbonate 600 MG Tablet 1 tablet with food Orally Twice a day Active Triamterene-HCTZ 37.5-25 MG Tablet 1 tablet in the morning Orally Once a day Active Cetirizine *Reorder from [facility] for eRx and Interaction Alerts* Active Buspirone *Reorder from [facility] for eRx and Interaction Alerts* Active Aspirin *Pick strength-form from [facility] for eRX* Active Acetaminophen 650 MG/20.3ML Solution as directed Orally Act ross BD Insulin Syringe U/F 31G X 5/16 0.5 ML Miscellaneous USE DIRECTED; Duration: 30 Active Levothyroxine Sodium 25 mcg Tablet TAKE ONE TABLET BY MOUTH EVERY DAY before meal; Duration: 30 Active Sulfamethoxazole-Tri methoprim *Pick strength-form from [facility] for eRX* Active buPROPion HCl *Pick strength-form from [facility] for eRX* Active Vitamin D (Ergocalciferol) 1.25 MG (17968 UT) Capsule 1 capsule Orally fridays; Duration: 30 days Active Brilinta 90 mg Tablet TAKE ONE TABLET BY MOUTH TWICE DAILY; Duration: 30 Active Escitalopram Oxalate 10 mg Tablet TAKE ONE TABLET BY MOUTH EVERY DAY; Duration: 30 Active busPIRone HCl 15 MG Tablet 1 tablet Orally Twice a day Active Potassium Chloride ER 10 mEq Tablet Extended Release TAKE ONE TABLET BY MOUTH EVERY DAY; Duration: 30 Active Isosorbide Mononitrate ER 30 mg Tablet Extended Release 24 Hour TAKE ONE TABLET BY MOUTH EVERY DAY; Duration: 30 Active Bumetanide 2 mg Tablet TAKE ONE TABLET BY MOUTH EVERY DAY; Duration: 30 Active rOPINIRole HCl 0.25 MG Tablet 1 tablet 1 to 3 hours before bedtime Orally Once a day Active HumaLOG KwikPen 100 unit/mL Solution Pen-injector inject PER sliding scale SUBCUTANEOUSLY BEFORE meals AND AT bedtime; Duration: 30 Active metFORMIN HCl 1000 MG Tablet TAKE ONE TABLET BY MOUTH EVERY DAY; Duration: 30 Active Trulicity 1.5 MG/0.5ML Solution Pen-injector inject 1.5mg SUBCUTANEOUSLY EVERY 7 DAYS; Duration: 28 Active BD Pen Needle Mirian U/F 32G X 4 MM Miscellaneous USE DIRECTED; Duration: 30 Active Tamsulosin HCl 0.4 mg Capsule TAKE ONE CAPSULE BY MOUTH DAILY; Duration: 30 Active Sertraline HCl 25 mg Tablet TAKE ONE TABLET BY MOUTH At Bedtime; Duration: 30 Active rOPINIRole HCl 0.5 mg Tablet TAKE ONE TABLET BY MOUTH At Bedtime; Duration: 30 Active traZODone HCl 50 mg Tablet TAKE ONE TABLET BY MOUTH At Bedtime; Duration: 30 Active UltiCare Mini Pen [place] 31G X 6 MM Miscellaneous USE as directed; Duration: 25 Active buPROPion HCl ER (SR) 200 mg Tablet Extended Release 12 Hour TAKE ONE TABLET BY MOUTH EVERY TWELVE HOURS; Duration: 30 Active Ondansetron HCl 4 mg Tablet TAKE ONE TABLET BY MOUTH TWICE DAILY NEEDED FOR NAUSEA AND VOMITING; Duration: 15 Active Pantoprazole Sodium 40 mg Tablet Delayed Release TAKE ONE TABLET BY MOUTH EVERY DAY; Duration: 30 Active Social History Tobacco Use: Social History Observation Description Date Details (start date - stop date) Never Smoker NA - NA Social History Drugs/Alcohol: Social Info Question Answer Notes Alcohol Screen (Audit-C) Did you have a drink containing alcohol in the past year? No Points 0 Interpretation Negative Caffeine Intake: 3-4 cups per day Tobacco Use: Social Info Question Answer Notes xTobacco Use/Smoking Are you a nonsmoker Additional Details Category Social Info Options Details Migrated Social History Migrated Social History History of tobacco use : , Smoking Status : Never used tobacco Section Notes: nonsmoker, denies alcohol, c affiene dr pepper tea, nonsmoker, denies alcohol, c affiene dr pepper tea, nonsmoker, denies alcohol, c affiene tea, nonsmoker, denies alcohol, c affiene tea, Problems Problem Type SNOMED Code ICD Code Onset Dates Problem Status W/U Status Risk Notes Problem Disorder due to type 2 diabetes mellitus (864367785) Type 2 diabetes mellitus with unspecified complications (E11.8) Active confirmed Problem Restless legs syndrome (87429065) Restless legs syndrome (G25.81) Active confirmed Problem Obstructive sleep apnea syndrome (disorder) (08198464) Obstructive sleep apnea (adult) (pediatric) (G47.33) Active confirmed Problem Hypertensive heart failure (08184151) Hypertensive heart disease with heart failure (I11.0) Active confirmed Problem STEMI - ST elevation myocardial infarction (464868314) ST elevation (STEMI) myocardial infarction involving other sites (I21.29) Active confirmed Problem Ischemic cardiomyopathy (205363246) Ischemic cardiomyopathy (I25.5) Active confirmed Problem Chronic total occlusion of coronary artery (788835109449865) Chronic total occlusion of coronary artery (I25.82) Active confirmed Problem Acute on chronic systolic heart failure (709770694) Acute on chronic systolic (congestive) heart failure (I50.23) Active confirmed Problem Chronic diastolic heart failure (415937693) Chronic diastolic (congestive) heart failure (I50.32) Active confirmed Problem Gastro-esophageal reflux disease without esophagitis (464812466) Gastro-esophageal reflux disease without esophagitis (K21.9) Active confirmed Problem Age-related osteoporosis (272352219) Age-related osteoporosis without current pathological fracture (M81.0) Active confirmed Problem Palpitations (95638758) Palpitations (R00.2) Active confirmed Problem Shortness of breath (372846387) Shortness of breath (R06.02) Active confirmed Problem Localized edema (6815807) Localized edema (R60.0) Active confirmed Problem Essential hypertension (07491545) Essential hypertension (I10) Active confirmed Problem Type II diabetes mellitus without complication (918622499) Type 2 diabetes mellitus without complication, unspecified whether supervisor long goods insulin use (E11.9) Active confirmed Problem Constipation (14634962) Constipation, unspecified constipation type (K59.00) Active confirmed Problem 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 (417459388949396) Coronary artery disease involving mcgrath coronary artery of [place] heart without angina pectoris (I25.10) Active confirmed Problem Atherosclerosis of coronary artery without angina pectoris (877901647801502) Atherosclerosis of [place] coronary artery of [place] heart without angina pectoris (I25.10) Active confirmed Problem Hyperlipidaemia (74749972) Hyperlipidemia, unspecified hyperlipidemia type (E78.5) Active confirmed Problem Type II diabetes mellitus without complication (269580521) Diabetes (E11.9) Active confirmed Problem Dizziness (148683145) Dizziness (R42) Active confirmed Problem Hypertension (23047467) HTN (hypertension) (I10) Active confirmed Problem History of placement of stent for coronary artery disease (situation) (035329539) History of coronary artery stent placement (Z95.5) Active confirmed Problem History of placement of stent for coronary artery disease (situation) (237820353) Hx of heart artery stent (Z95.5) Active confirmed Problem 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 (242603516617891) Arteriosclerosis of coronary artery (I25.10) Active confirmed Problem Hyperlipidemia (35052433) Hyperlipidemia (E78.5) Active confirmed Problem Acute non-ST segment elevation myocardial infarction (253980034) Non-ST elevated myocardial infarction (non-STEMI) (I21.4) Active confirmed Problem Angina (061126286) Atheroscleros is of mcgrath coronary artery of [place] heart with angina pectoris (I25.119) Active confirmed Encounters Encounter Location Date Provider Diagnosis [facility] [address] [place] [address] 01/24/2025 Rk eJrez Essential hypertension I10 ; Ischemic cardiomyopathy I25.5 ; History of coronary artery stent placement Z95.5 and Coronary artery disease involving mcgrath coronary artery of [place] heart without angina pectoris I25.10 [place] [address] [place] [address] 02/14/2025 Rk Jerez [facility] [address] [place] [address] 03/22/2024 Rk Jerez History of coronary artery stent placement Z95.5 ; Coronary artery disease involving mcgrath coronary artery of [place] heart without angina pectoris I25.10 ; ST elevation (STEMI) myocardial infarction involving other sites I21.29 and Essential hypertension I10 [place] [address] [place] [address] 04/19/2024 Rk Jerez Diabetes E11.9 ; History of coronary artery stent placement Z95.5 ; Chronic total occlusion of coronary artery I25.82 and Coronary artery disease involving mcgrath coronary artery of [place] heart without angina pectoris I25.10 [place] [address] [place] [address] 05/17/2024 Christkobe Jerez History of coronary artery stent placement Z95.5 ; Type 2 diabetes mellitus with unspecified complications E11.8 and HTN (hypertension) I10 [place] [address] [place] [address] 06/21/2024 Rk Jerez Chronic total occlusion of coronary artery I25.82 and Type 2 diabetes mellitus without complication, unspecified whether intermediate insulin use E11.9 [place] [address] [place] [address] 08/23/2024 Rk Jerez History of coronary artery stent placement Z95.5 ; Chronic total occlusion of coronary artery I25.82 and Coronary artery disease involving mcgrath coronary artery of [place] heart without angina pectoris I25.10 [place] [address] [place] [address] 09/20/2024 Rk Jerez History of coronary artery stent placement Z95.5 ; Ischemic cardiomyopathy I25.[address] elevation (STEMI) myocardial infarction involving other sites I21.29 [place] [address] [place] [address] 10/18/2024 Rk Jerez History of coronary artery stent placement Z95.5 ; Chronic total occlusion of coronary artery I25.82 and Coronary artery disease involving mcgrath coronary artery of [place] heart without angina pectoris I25.10 [place] [address] [place] [address] 11/15/2024 Rk Jerez History of coronary artery stent placement Z95.5 ; Ischemic cardiomyopathy I25.[address] elevation (STEMI) myocardial infarction involving other sites I21.29 [place] [address] [place] [address] 12/20/2024 Rk Jerez History of coronary artery stent placement Z95.5 ; Essential hypertension I10 and ST elevation (STEMI) myocardial infarction involving other sites I21.29 [facility]Facility 0 0 05/04/2024 Provider Migration [facility]rated[facility]Facility 0 0 05/05/2024 Provider Migration [facility] [address] [place] [address] 03/19/2024 [facility] [address] [place] [address] 04/16/2024 [facility] [address] [place] [address] 04/24/2024 [facility] [address] [place] [address] 04/24/2024 [facility] [address] [place] [address] 05/20/2024 [facility] [address] [place] [address] 06/10/2024 [facility] [address] [place] [address] 07/04/2024 [facility] [address] [place] [address] 07/08/2024 [facility] [address] [place] [address] 08/12/2024 [facility] [address] [place] [address] 11/18/2024 [facility] [address] [place] [address] 12/25/2024 [facility] [address] [place] [address] 12/26/2024 [facility] [address] [place] [address] 01/15/2025 [facility] [address] [facility] [address] [place] [address] 02/05/2025 [facility] Assessments Encounter Date Diagnosis (ICD Code) Assessment Notes Treatment Notes Treatment Clinical Notes Section Notes 04/19/2024 Diabetes (ICD-10 - E11.9) Pt requires Diabetic shoes. We will fax order and notes to HOME in . 03/22/2024 History of coronary artery stent placement (ICD-10 - Z95.5) 05/17/2024 History of coronary artery stent placement (ICD-10 - Z95.5) 06/21/2024 Chronic total occlusion of coronary artery (ICD-10 - I25.82) 08/23/2024 History of coronary artery stent placement (ICD-10 - Z95.5) 09/20/2024 History of coronary artery stent placement (ICD-10 - Z95.5) Medications were reviewed. I will continue without changes. Nursing staff is to contact me with any symptoms arising. Orders signed and documented with nursing staff. Vitals taken and recorded at [facility]. 10/18/2024 History of coronary artery stent placement (ICD-10 - Z95.5) Medications were reviewed. I will continue without changes. Nursing staff is to contact me with any symptoms arising. Orders signed and documented with nursing staff. Vitals taken and recorded at [facility]. 11/15/2024 History of coronary artery stent placement (ICD-10 - Z95.5) Medications were reviewed. I will continue without changes. Nursing staff is to contact me with any symptoms arising. Orders signed and documented with nursing staff. Vitals taken and recorded at [facility]. 12/20/2024 History of coronary artery stent placement (ICD-10 - Z95.5) Medications were reviewed. I will continue without changes. Nursing staff is to contact me with any symptoms arising. Orders signed and documented with nursing staff. Vitals taken and recorded at [facility]. 01/24/2025 Essential hypertension (ICD-10 - I10) 01/24/2025 Ischemic cardiomyopathy (ICD-10 - I25.5) 12/20/2024 Essential hypertension (ICD-10 - I10) 11/15/2024 Ischemic cardiomyopathy (ICD-10 - I25.5) 10/18/2024 Chronic total occlusion of coronary artery (ICD-10 - I25.82) 09/20/2024 Ischemic cardiomyopathy (ICD-10 - I25.5) 08/23/2024 Chronic total occlusion of coronary artery (ICD-10 - I25.82) 06/21/2024 Type 2 diabetes mellitus without complication, unspecified whether supervisor long goods insulin use (ICD-10 - E11.9) 05/17/2024 Type 2 diabetes mellitus with unspecified complications (ICD-10 - E11.8) 03/22/2024 Coronary artery disease involving mcgrath coronary artery of mcgr[place] heart without angina pectoris (ICD-10 - I25.10) 04/19/2024 History of coronary artery stent placement (ICD-10 - Z95.5) 04/19/2024 Chronic total occlusion of coronary artery (ICD-10 - I25.82) 03/22/2024 ST elevation (STEMI) myocardial infarction involving other sites (ICD-10 - I21.29) 05/17/2024 HTN (hypertension) (ICD-10 - I10) 08/23/2024 Coronary artery disease involving mcgrath coronary artery of mcgr[place] heart without angina pectoris (ICD-10 - I25.10) 09/20/2024 ST elevation (STEMI) myocardial infarction involving other sites (ICD-10 - I21.29) 10/18/2024 Coronary artery disease involving mcgrath coronary artery of mcgr[place] heart without angina pectoris (ICD-10 - I25.10) 11/15/2024 ST elevation (STEMI) myocardial infarction involving other sites (ICD-10 - I21.29) 12/20/2024 ST elevation (STEMI) myocardial infarction involving other sites (ICD-10 - I21.29) 01/24/2025 History of coronary artery stent placement (ICD-10 - Z95.5) 01/24/2025 Coronary artery disease involving mcgrath coronary artery of mcgr[place] heart without angina pectoris (ICD-10 - I25.10) 03/22/2024 Essential hypertension (ICD-10 - I10) 04/19/2024 Coronary artery disease involving mcgrath coronary artery of mcgr[place] heart without angina pectoris (ICD-10 - I25.10) 01/24/2025 Other Medications were reviewed. I will continue without changes. Nursing staff is to contact me with any symptoms arising. Orders signed and documented with nursing staff. Vitals taken and recorded at [facility]. 02/14/2025 Other Medications were reviewed. I will continue without changes. Nursing staff is to contact me with any symptoms arising. Orders signed and documented with nursing staff. Vitals taken and recorded at [facility]. 03/22/2024 Other Medications reviewed, orders signed and documented with nursing staff. Vitals taken and recorded at [facility]. 04/19/2024 Other Medications reviewed, orders signed and documented with nursing staff. Vitals taken and recorded at [facility]. 05/17/2024 Other Medications reviewed, orders signed and documented with nursing staff. Vitals taken and recorded at [facility]. 06/21/2024 Other Medications reviewed, orders signed and documented with nursing staff. Vitals taken and recorded at [facility]. 08/23/2024 Other Medications reviewed, orders signed and documented with nursing staff. Vitals taken and recorded at [facility]. Plan Of Treatment No Information Insurance Providers Payer Name Payer Address Payer Phone Subscriber Number Group Number Insured Name Patient Relationship to Insured Coverage Start Date Coverage End Date [place] [address] [place] [phone] [id number] DAVIS HANDLEY Self - patient is the insured [place] Q[place] [address] [place] [address] [id number] DAVIS HANDLEY Self - patient is the insured UHC Medicare Dual Complete PPO [address] [address] [place] [address] [phone] [id number] DAVIS HANDLEY Self - patient is the insured Medical (General) History Medical History History ICD Code diabetes cad htn hyperlipidemia covid vaccine x 2 Surgical History Surgery Date(Month/Year) [facility] showing severe stenosis of LAD, distal RCA, patent stent in OM2. PCI of mid LAD 09/15/22 [facility] showing severe stenosis of LAD, distal RCA and acutely occluded OM2. PCI of OM2 09/05/22 [facility] 1. Successful JORDIN to pro ximal to mid RCA. 2. previous stents to RCA, LAD and circumflex patent. 3. subtotal 1st diagonal vessel that is chronic. 10/12/22 Hernia Mesh removal - Dr. Currie Since 10-14-21 Hospitalization History Reason Date(Month/Year) CP 09/05/22 ED - CP 09/15/22
--- NOTE | 2025-02-25 17:23 | W.ED.CHESTPA ---
Documented by User: James Sharma, 02/26/25 06:11 HPI - Chest Pain General: Chief Complaint: Chest Pain Stated Complaint: Chest Pain Time Seen by Provider: 02/25/25 17:12 History of Present Illness: 64-year-old female presents emergency room via EMS from local nursing planing chest pain and she has had for the last 3 days. She denies fever sweats or chills. She is chronically on 3 L per nasal cannula. She is diabetic insulin-dependent. She also has a history of COPD. Known history of coronary artery disease. Patient has nothing exacerbates or relieves her symptoms. Patient did have a angiogram done in April 2024 showed critical coronary stenosis in 2 vessels the mid RCA lesion treated with a balloon and stent. She also distal circumflex lesion that was treated with a stent as well per Associated symptoms: Deny abdominal pain, dyspnea or fever(s) Related Data Home Medications ?Medication ?Instructions ?Recorded ?Confirmed tamsulosin 0.4 mg capsule 0.4 mg PO BEDTIME@22 01/06/23 02/12/25 nitroglycerin 0.4 mg sublingual 0.4 mg sublingual Q5M PRN Chest 01/18/23 02/12/25 tablet (Nitrostat) Pain pantoprazole 40 mg tablet,delayed 40 mg PO QAM 09/07/23 02/12/25 release trazodone 50 mg tablet 50 mg PO BEDTIME 09/07/23 02/12/25 insulin lispro 100 unit/mL 10 unit SUBCUT TID 09/14/23 02/12/25 subcutaneous pen (Humalog KwikPen (U-100) Insulin) insulin glargine 100 unit/mL (3 30 unit SUBCUT QAM 02/28/24 02/12/25 mL) subcutaneous pen (Lantus Solostar U-100 Insulin) isosorbide mononitrate 60 mg 60 mg PO DAILY 02/28/24 02/12/25 tablet,extended release 24 hr atorvastatin 80 mg tablet 80 mg PO BEDTIME 07/22/24 02/12/25 albuterol sulfate 2.5 mg/3 mL 2.5 mg inhalation Q4H PRN 08/14/24 12/28/24 (0.083 %) solution for nebulization Shortness Of Breath Or Wheezing calcium carbonate 1,000 mg PO DAILY 09/12/24 02/12/25 docusate sodium 100 mg capsule 100 mg PO BID 09/12/24 02/12/25 carvedilol 6.25 mg tablet 6.25 mg PO BID 11/25/24 02/12/25 alprazolam 0.25 mg tablet 0.25 mg PO BID 12/28/24 02/12/25 escitalopram oxalate 20 mg tablet 20 mg PO DAILY 12/28/24 02/12/25 levothyroxine 50 mcg tablet 50 mcg PO DAILY 12/28/24 02/12/25 quetiapine 50 mg tablet,extended 100 mg PO BEDTIME 12/28/24 02/12/25 release 24 hr Previous Rx's ?Medication ?Instructions ?Recorded ropinirole 0.5 mg tablet 0.5 mg PO BEDTIME@22 #30 tabs 01/24/23 aspirin 81 mg tablet,delayed 81 mg PO DAILY@07 #60 tabs 11/23/23 release ticagrelor 90 mg tablet (Brilinta) 90 mg PO BID@07,22 #120 tabs 11/23/23 ranolazine 500 mg tablet,extended 500 mg PO BID #60 tabs 12/22/23 release,12 hr bumetanide 2 mg tablet 2 mg PO DAILY #60 tabs 03/24/24 polyethylene glycol 3350 17 gram 17 g PO DAILY #30 ea 09/23/24 oral powder packet (Miralax) acetaminophen 325 mg tablet 650 mg (2 x 325 mg) PO Q6H PRN 09/24/24 Mild/Mod Pain Or Temp >/= 101 #0 tabs potassium chloride 20 mEq 20 meq PO DIRECTED #30 tabs 02/13/25 tablet,extended release (K-Tab) Allergies Allergy/AdvReac Type Severity Reaction Status Date / Time hyoscyamine Allergy Severe ADR-Itching Verified 02/12/25 15:03 cefdinir Allergy Unknown Verified 02/12/25 15:03 ciprofloxacin (From Cipro) Allergy hives Verified 02/12/25 15:03 citalopram Allergy effects Verified 02/12/25 15:03 speach and memory clopidogrel (From Plavix) Allergy unk Verified 02/12/25 15:03 coconut Allergy Unknown Verified 02/12/25 15:03 ibuprofen Allergy RASH/ Verified 02/12/25 15:03 SWELLING famotidine AdvReac Mild itching Verified 02/12/25 15:03 esomeprazole (From Nexium) AdvReac Unknown Verified 02/12/25 15:03 Review of Systems Const: Denies: fever(s) or chills Card: Denies: chest pain Resp: Denies: dyspnea GI: Denies: abdominal pain : Denies: dysuria, urinary frequency or urinary urgency Musc: Denies: neck pain or back pain Skin/Breast: Denies: rash PFSH ED PFSH: Medical History Otitis media, unspecified, bilateral Elevated troponin CAD (coronary artery disease) Non-ST elevation AR (NSTEMI) DM type 2 (diabetes mellitus, type 2) Unstable angina pectoris Acute kidney injury CHF (congestive heart failure) Chest pain Status post left heart catheterization (LHC) Groin hematoma Left ACL tear Fracture of fifth toe, left, closed Derangement of lateral meniscus of right knee Derangement of medial meniscus of right knee Chronic kidney disease (CKD) Lumbar stenosis with neurogenic claudication Inability to walk Renal failure Chronic cystitis with hematuria Inability to urinate Atherosclerotic heart disease of [place] coronary artery with other forms of angina pectoris Lower extremity weakness Depression with anxiety Coronary artery disease due to type 2 diabetes mellitus Morbid obesity Generalized muscle weakness Type 2 diabetes mellitus with diabetic polyneuropathy Diabetes mellitus Small bowel strangulation Dyslipidemia Chronic cystitis Gross hematuria Osteoporosis Morbid obesity Constipation Migraine headache Bilateral lower extremity edema RLS (restless legs syndrome) GERD (gastroesophageal reflux disease) BETH (obstructive sleep apnea) CVA (cerebral vascular accident) HTN (hypertension) Pulmonary embolism, bilateral Opioid contract exists Long-term use of high-risk medication Chronic low back pain Surgical History Status post coronary artery stent placement Status post lumbar laminectomy H/O heart artery stent S/P hysterectomy S/P tonsillectomy and adenoidectomy S/P appendectomy S/P cholecystectomy Hx of total knee replacement History of partial surgical removal of colon Family History Grandfather Cancer Family/Other Myocardial infarct MOTHER, FATHER, BROTHER, SISTER Hypertension Diabetes Mother , at age 66 CAD (coronary artery disease) Father , at age 74 CAD (coronary artery disease) Sister CAD (coronary artery disease) Brother CAD (coronary artery disease) Other Stroke Denies family history of Anesthesia complication Bleeding disorder Social History Smoking and tobacco/nicotine status: never used tobacco/nicotine Alcohol intake: never Substance/Drug Use: current Substance/Drug use frequency: other Other substance/drug use details: smokes medical marijauna occasionally at night to help her sleep Lives independently: Yes Marital status: Current occupational status: disabled Current gender identity: Female Special vik needs: No Physical Exam Const: GENERAL APPEARANCE: cooperative ORIENTATION/CONSCIOUSNESS: Yes awake, Yes oriented to person, Yes oriented to place and Yes oriented to time HENMT: COMMON NORMALS: normocephalic, atraumatic and hearing grossly normal bilaterally HEAD & SCALP: normocephalic and atraumatic Resp: COMMON NORMALS: normal respiratory effort, No retractions, No use of accessory muscles and clear to auscultation bilaterally AUSCULTATION: clear to auscultation bilaterally Cardio: COMMON NORMALS: regular rate, regular rhythm and No murmurs present (Cardio) RATE: regular rate RHYTHM: regular rhythm GI: COMMON NORMALS: Soft to palpation and No hepatosplenomegaly present AUSCULTATION: Yes normoactive bowel sounds PALPATION: Yes Soft to palpation, No Tenderness to palpation present (GI), No Guarding due to palpation present (GI) and Yes No hepatosplenomegaly present Extremity: COMMON NORMALS: normal to inspection, capillary refill normal, no clubbing, cyanosis or edema, no calf tenderness and no pedal edema Neuro: SENSORIUM/ORIENTATION: Yes oriented to person, Yes oriented to place and Yes oriented to time Skin: COMMON NORMALS: no rashes or lesions noted GENERAL SKIN EXAM: no rashes or lesions noted Course Vital Signs: Vital signs: Vital Signs Temperature 98.4 F 02/25/25 17:11 Pulse Rate 70 02/25/25 23:13 Respiratory Rate 18 02/25/25 19:30 Blood Pressure 138/114 02/25/25 23:13 Pulse Oximetry 98 02/25/25 23:13 Oxygen Delivery Me thod Nasal Cannula 02/25/25 17:11 Oxygen Flow Rate 3 02/25/25 17:11 MDM - Chest Pain Medical Decision Making Care signed out to Dr. Dutton at change of shift. See final notes for diagnosis and disposition. Medical Records I reviewed the patient's medical records. Lab Data I reviewed the patient's lab results. 02/25/25 17:37 02/25/25 17:37 Radiology Impressions Chest X-Ray 02/25/25 17:13 IMPRESSION: 1. Heart size. Slightly larger, prominence of the central vessels with a hazy outlines may represent vascular congestion. This should be correlated clinically. 2. Some patchy parenchymal opacities in the lower lobes. These could represent pneumonia. Could represent areas of edema Laboratory Results WBC 8.11 10^3/uL (3.29-11.43) 02/25/25 17:37 RBC 3.58 10^6/uL (3.85-5.65) L 02/25/25 17:37 Hgb 9.30 g/dL (11.27-16.99) L 02/25/25 17:37 Hct 29.8 % (36-47) L 02/25/25 17:37 MCV 83.2 fl (85-98) L 02/25/25 17:37 MCH 26.0 pg (27-33) L 02/25/25 17:37 MCHC 31.2 g/dL (30-55) 02/25/25 17:37 RDW 15.7 % (12.1-15.1) H 02/25/25 17:37 Plt Count 283 10^3/cmm (157-399) 02/25/25 17:37 MPV 9.6 fL (7.4-10.4) 02/25/25 17:37 Neut % (Auto) 47.4 % 02/25/25 17:37 Lymph % (Auto) 38.3 % 02/25/25 17:37 [place] % (Auto) 5.3 % 02/25/25 17:37 Eos % (Auto) 8.3 % 02/25/25 17:37 Baso % (Auto) 0.5 % 02/25/25 17:37 Neut # (Auto) 3.84 10^3/uL (1.8-7.7) 02/25/25 17:37 Lymph # (Auto) 3.1 10^3/uL (0.8-4.8) 02/25/25 17:37 [place] # (Auto) 0.4 10^3/uL (0.2-0.9) 02/25/25 17:37 Eos # (Auto) 0.7 10^3/uL (0.0-0.8) 02/25/25 17:37 Baso # (Auto) 0.0 10^3/uL (0.0-0.1) 02/25/25 17:37 Nucleated RBC % (auto) 0 % 02/25/25 17:37 Nucleated RBCs # 0.0 /100WBC 02/25/25 17:37 Sodium 137 mmol/L (136-145) 02/25/25 17:37 Potassium 5.2 mmol/L (3.5-5.1) H 02/25/25 17:37 Chloride 100 mmol/L (98-107) 02/25/25 17:37 Carbon Dioxide 28 mmol/L (22-29) 02/25/25 17:37 Anion Gap 14.2 (5-19) 02/25/25 17:37 BUN 35 mg/dL (8-23) H 02/25/25 17:37 Creatinine 1.6 mg/dL (0.5-0.9) H 02/25/25 17:37 GFR Calculation 32.7 mL/min (90-130) L 02/25/25 17:37 Glucose 284 mg/dL (65-115) H 02/25/25 17:37 Calculated Osmolality 302 mOsm/kg (285-295) H 02/25/25 17:37 Calcium 8.7 mg/dL (8.5-10.5) 02/25/25 17:37 Total Bilirubin 0.3 mg/dL (0.15-1.2) 02/25/25 17:37 AST 9 U/L (0-32) 02/25/25 17:37 ALT 8 U/L (0-33) 02/25/25 17:37 Alkaline Phosphatase 128 U/L (35-105) H 02/25/25 17:37 Troponin T Baseline 138 ng/L (0-10) H* 02/25/25 17:37 Troponin T 120 Minute 132.9 ng/L (0-10) H 02/25/25 19:40 Delta Troponin T -5.1 ABS# (0-10) L 02/25/25 19:40 NT-Pro-B Natriuret Pep 2409 pg/mL (0-125) H 02/25/25 17:37 Total Protein 6.6 g/dL (6.6-8.7) 02/25/25 17:37 Albumin 3.5 g/dL (3.5-5.2) 02/25/25 17:37 Globulin 3.1 g/dL (1.3-4.6) 02/25/25 17:37 EKG Data EKG 1: Interpretation: EKG 02/25/2025 [address] changes rate of 79. #172 QTc 418. Partial right bundle branch block no ST elevation. Nondiagnostic Q waves in 2 3 and aVF were seen in previous EKGs. EKGs from 10/22/2024 and 09/15/2024 compared to. Discharge Plan Discharge Patient Disposition: Home Clinical Impression: Chest pain Condition: Stable Prescriptions: No Action pantoprazole 40 mg tablet,delayed release (DR/EC) 40 mg PO QAM albuterol sulfate 2.5 mg /3 mL (0.083 %) solution for nebulization 2.5 mg inhalation Q4H PRN (Reason: Shortness Of Breath Or Wheezing) carvedilol 6.25 mg tablet 6.25 mg PO BID tamsulosin 0.4 mg capsule 0.4 mg PO BEDTIME@22 ropinirole 0.5 mg tablet 0.5 mg PO BEDTIME@22 Qty: 30 2RF trazodone 50 mg tablet 50 mg PO BEDTIME potassium chloride [K-Tab] 20 mEq tablet extended release 20 meq PO DIRECTED Qty: 30 3RF Rx Instructions: Take 20 meq for 3 days, and as needed nitroglycerin [Nitrostat] 0.4 mg Tablet, Sublingual 0.4 mg SUBLINGUAL Q5M PRN (Reason: Chest Pain) Rx Instructions: do not exceed 3 doses per episode insulin lispro [Humalog KwikPen Insulin] 100 unit/mL insulin pen 10 unit SUBCUT TID ranolazine 500 mg Tablet Extended Release 12 Hr 500 mg PO BID Qty: 60 0RF isosorbide mononitrate 60 mg tablet extended release 24 hr 60 mg PO DAILY insulin glargine [Lantus Solostar U-100 Insulin] 100 unit/mL (3 mL) insulin pen 30 unit SUBCUT QAM aspirin 81 mg Tablet,Delayed Release (Dr/Ec) 81 mg PO DAILY@07 Qty: 60 0RF ticagrelor [Brilinta] 90 mg tablet 90 mg PO BID@ Qty: 120 0RF bumetanide 2 mg tablet 2 mg PO DAILY Qty: 60 3RF atorvastatin 80 mg Tablet 80 mg PO BEDTIME docusate sodium 100 mg Capsule 100 mg PO BID calcium carbonate 500 mg calcium (1,250 mg) Tablet,Chewable 1,000 mg PO DAILY polyethylene glycol 3350 [Miralax] 17 gram powder in packet 17 g PO DAILY Qty: 30 6RF acetaminophen 325 mg Tablet 650 mg PO Q6H PRN (Reason: Mild/Mod Pain Or Temp >/= 101) Qty: 0 0RF alprazolam 0.25 mg tablet 0.25 mg PO BID levothyroxine 50 mcg tablet 50 mcg PO DAILY escitalopram oxalate 20 mg tablet 20 mg PO DAILY quetiapine 50 mg tablet extended release 24 hr 100 mg PO BEDTIME Discharge Orders: Discharge ED (Routine); Ordered 02/25/25 Ordered By: Rebel Dutton Referrals: Niko Jerez MD [Primary Care Provider, Internal Medicine] Patient Instructions: Chest Pain (ED), Patient Portal & [facility] Instructions Print Language: Persian Coding Level of Care Code ED Spring Tester for Chg Fwd Documented by User: Rebel Dutton MD 02/25/25 20:42 HPI - Chest Pain General: Chief Complaint: Chest Pain Stated Complaint: Chest Pain Time Seen by Provider: 02/25/25 17:12 Related Data Home Medications ?Medication ?Instructions ?Recorded ?Confirmed tamsulosin 0.4 mg capsule 0.4 mg PO BEDTIME@22 01/06/23 02/12/25 nitroglycerin 0.4 mg sublingual 0.4 mg sublingual Q5M PRN Chest 01/18/23 02/12/25 tablet (Nitrostat) Pain pantoprazole 40 mg tablet,delayed 40 mg PO QAM 09/07/23 02/12/25 release trazodone 50 mg tablet 50 mg PO BEDTIME 09/07/23 02/12/25 insulin lispro 100 unit/mL 10 unit SUBCUT TID 09/14/23 02/12/25 subcutaneous pen (Humalog KwikPen (U-100) Insulin) insulin glargine 100 unit/mL (3 30 unit SUBCUT QAM 02/28/24 02/12/25 mL) subcutaneous pen (Lantus Solostar U-100 Insulin) isosorbide mononitrate 60 mg 60 mg PO DAILY 02/28/24 02/12/25 tablet,extended release 24 hr atorvastatin 80 mg tablet 80 mg PO BEDTIME 07/22/24 02/12/25 albuterol sulfate 2.5 mg/3 mL 2.5 mg inhalation Q4H PRN 08/14/24 12/28/24 (0.083 %) solution for nebulization Shortness Of Breath Or Wheezing calcium carbonate 1,000 mg PO DAILY 09/12/24 02/12/25 docusate sodium 100 mg capsule 100 mg PO BID 09/12/24 02/12/25 carvedilol 6.25 mg tablet 6.25 mg PO BID 11/25/24 02/12/25 alprazolam 0.25 mg tablet 0.25 mg PO BID 12/28/24 02/12/25 escitalopram oxalate 20 mg tablet 20 mg PO DAILY 12/28/24 02/12/25 levothyroxine 50 mcg tablet 50 mcg PO DAILY 12/28/24 02/12/25 quetiapine 50 mg tablet,extended 100 mg PO BEDTIME 12/28/24 02/12/25 release 24 hr Previous Rx's ?Medication ?Instructions ?Recorded ropinirole 0.5 mg tablet 0.5 mg PO BEDTIME@ #30 tabs 01/24/23 aspirin 81 mg tablet,delayed 81 mg PO DAILY@07 #60 tabs 11/23/23 release ticagrelor 90 mg tablet (Brilinta) 90 mg PO BID@, #120 tabs 11/23/23 ranolazine 500 mg tablet,extended 500 mg PO BID #60 tabs 12/22/23 release,12 hr bumetanide 2 mg tablet 2 mg PO DAILY #60 tabs 03/24/24 polyethylene glycol 3350 17 gram 17 g PO DAILY #30 ea 09/23/24 oral powder packet (Miralax) acetaminophen 325 mg tablet 650 mg (2 x 325 mg) PO Q6H PRN 09/24/24 Mild/Mod Pain Or Temp >/= 101 #0 tabs potassium chloride 20 mEq 20 meq PO DIRECTED #30 tabs 02/13/25 tablet,extended release (K-Tab) Allergies Allergy/AdvReac Type Severity Reaction Status Date / Time hyoscyamine Allergy Severe ADR-Itching Verified 02/12/25 15:03 cefdinir Allergy Unknown Verified 02/12/25 15:03 ciprofloxacin (From Cipro) Allergy hives Verified 02/12/25 15:03 citalopram Allergy effects Verified 02/12/25 15:03 speach and memory clopidogrel (From Plavix) Allergy unk Verified 02/12/25 15:03 coconut Allergy Unknown Verified 02/12/25 15:03 ibuprofen Allergy RASH/ Verified 02/12/25 15:03 SWELLING famotidine AdvReac Mild itching Verified 02/12/25 15:03 esomeprazole (From Nexium) AdvReac Unknown Verified 02/12/25 15:03 PFSH ED PFSH: Medical History Otitis media, unspecified, bilateral Elevated troponin CAD (coronary artery disease) Non-ST elevation AR (NSTEMI) DM type 2 (diabetes mellitus, type 2) Unstable angina pectoris Acute kidney injury CHF (congestive heart failure) Chest pain Status post left heart catheterization (LHC) Groin hematoma Left ACL tear Fracture of fifth toe, left, closed Derangement of lateral meniscus of right knee Derangement of medial meniscus of right knee Chronic kidney disease (CKD) Lumbar stenosis with neurogenic claudication Inability to walk Renal failure Chronic cystitis with hematuria Inability to urinate Atherosclerotic heart disease of [place] coronary artery with other forms of angina pectoris Lower extremity weakness Depression with anxiety Coronary artery disease due to type 2 diabetes mellitus Morbid obesity Generalized muscle weakness Type 2 diabetes mellitus with diabetic polyneuropathy Diabetes mellitus Small bowel strangulation Dyslipidemia Chronic cystitis Gross hematuria Osteoporosis Morbid obesity Constipation Migraine headache Bilateral lower extremity edema RLS (restless legs syndrome) GERD (gastroesophageal reflux disease) BETH (obstructive sleep apnea) CVA (cerebral vascular accident) HTN (hypertension) Pulmonary embolism, bilateral Opioid contract exists Long-term use of high-risk medication Chronic low back pain Surgical History Status post coronary artery stent placement Status post lumbar laminectomy H/O heart artery stent S/P hysterectomy S/P tonsillectomy and adenoidectomy S/P appendectomy S/P cholecystectomy Hx of total knee replacement History of partial surgical removal of colon Family History Grandfather Cancer Family/Other Myocardial infarct MOTHER, FATHER, BROTHER, SISTER Hypertension Diabetes Mother , at age 66 CAD (coronary artery disease) Father , at age 74 CAD (coronary artery disease) Sister CAD (coronary artery disease) Brother CAD (coronary artery disease) Other Stroke Denies family history of Anesthesia complication Bleeding disorder Social History Smoking and tobacco/nicotine status: never used tobacco/nicotine Alcohol intake: never Substance/Drug Use: current Substance/Drug use frequency: other Other substance/drug use details: smokes medical marijauna occasionally at night to help her sleep Lives independently: Yes Marital status: Current occupational status: disabled Current gender identity: Female Special vik needs: No Course Vital Signs: Vital signs: Vital Signs Temperature 98.4 F 02/25/25 17:11 Pulse Rate 70 02/25/25 23:13 Respiratory Rate 18 02/25/25 19:30 Blood Pressure 138/114 02/25/25 23:13 Pulse Oximetry 98 02/25/25 23:13 Oxygen Delivery Me thod Nasal Cannula 02/25/25 17:11 Oxygen Flow Rate 3 02/25/25 17:11 MDM - Chest Pain Medical Decision Making Care signed out to Dr. Dutton at change of shift. See final notes for diagnosis and disposition. Signout from Dr. Sharma at shift change. Patient here with chest pain. Awaiting test results. On reassessment I talked with the patient about her test results. Her troponin came back initially elevated at 138. Her second troponin at 2 hours was 132.9. This is around her normal baseline. She is resting comfortably the gurney at this time with no symptoms. I talked with her about the chest x-ray results regarding possible pneumonia. The patient has no cough, fever, or other signs of pneumonia. Will discharge back to the retirement with precautions to return for worsening or changing symptoms. Lab Data 02/25/25 17:37 02/25/25 17:37 Radiology Impressions Chest X-Ray 02/25/25 17:13 IMPRESSION: 1. Heart size. Slightly larger, prominence of the central vessels with a hazy outlines may represent vascular congestion. This should be correlated clinically. 2. Some patchy parenchymal opacities in the lower lobes. These could represent pneumonia. Could represent areas of edema Laboratory Results WBC 8.11 10^3/uL (3.29-11.43) 02/25/25 17:37 RBC 3.58 10^6/uL (3.85-5.65) L 02/25/25 17:37 Hgb 9.30 g/dL (11.27-16.99) L 02/25/25 17:37 Hct 29.8 % (36-47) L 02/25/25 17:37 MCV 83.2 fl (85-98) L 02/25/25 17:37 MCH 26.0 pg (27-33) L 02/25/25 17:37 MCHC 31.2 g/dL (30-55) 02/25/25 17:37 RDW 15.7 % (12.1-15.1) H 02/25/25 17:37 Plt Count 283 10^3/cmm (157-399) 02/25/25 17:37 MPV 9.6 fL (7.4-10.4) 02/25/25 17:37 Neut % (Auto) 47.4 % 02/25/25 17:37 Lymph % (Auto) 38.3 % 02/25/25 17:37 [place] % (Auto) 5.3 % 02/25/25 17:37 Eos % (Auto) 8.3 % 02/25/25 17:37 Baso % (Auto) 0.5 % 02/25/25 17:37 Neut # (Auto) 3.84 10^3/uL (1.8-7.7) 02/25/25 17:37 Lymph # (Auto) 3.1 10^3/uL (0.8-4.8) 02/25/25 17:37 [place] # (Auto) 0.4 10^3/uL (0.2-0.9) 02/25/25 17:37 Eos # (Auto) 0.7 10^3/uL (0.0-0.8) 02/25/25 17:37 Baso # (Auto) 0.0 10^3/uL (0.0-0.1) 02/25/25 17:37 Nucleated RBC % (auto) 0 % 02/25/25 17:37 Nucleated RBCs # 0.0 /100WBC 02/25/25 17:37 Sodium 137 mmol/L (136-145) 02/25/25 17:37 Potassium 5.2 mmol/L (3.5-5.1) H 02/25/25 17:37 Chloride 100 mmol/L (98-107) 02/25/25 17:37 Carbon Dioxide 28 mmol/L (22-29) 02/25/25 17:37 Anion Gap 14.2 (5-19) 02/25/25 17:37 BUN 35 mg/dL (8-23) H 02/25/25 17:37 Creatinine 1.6 mg/dL (0.5-0.9) H 02/25/25 17:37 GFR Calculation 32.7 mL/min (90-130) L 02/25/25 17:37 Glucose 284 mg/dL (65-115) H 02/25/25 17:37 Calculated Osmolality 302 mOsm/kg (285-295) H 02/25/25 17:37 Calcium 8.7 mg/dL (8.5-10.5) 02/25/25 17:37 Total Bilirubin 0.3 mg/dL (0.15-1.2) 02/25/25 17:37 AST 9 U/L (0-32) 02/25/25 17:37 ALT 8 U/L (0-33) 02/25/25 17:37 Alkaline Phosphatase 128 U/L (35-105) H 02/25/25 17:37 Troponin T Baseline 138 ng/L (0-10) H* 02/25/25 17:37 Troponin T 120 Minute 132.9 ng/L (0-10) H 02/25/25 19:40 Delta Troponin T -5.1 ABS# (0-10) L 02/25/25 19:40 NT-Pro-B Natriuret Pep 2409 pg/mL (0-125) H 02/25/25 17:37 Total Protein 6.6 g/dL (6.6-8.7) 02/25/25 17:37 Albumin 3.5 g/dL (3.5-5.2) 02/25/25 17:37 Globulin 3.1 g/dL (1.3-4.6) 02/25/25 17:37 All radiology interpretation(s) finalized by discharge Discharge Plan Discharge Patient Disposition: Home Clinical Impression: Chest pain Condition: Stable Prescriptions: No Action pantoprazole 40 mg tablet,delayed release (DR/EC) 40 mg PO QAM albuterol sulfate 2.5 mg /3 mL (0.083 %) solution for nebulization 2.5 mg inhalation Q4H PRN (Reason: Shortness Of Breath Or Wheezing) carvedilol 6.25 mg tablet 6.25 mg PO BID tamsulosin 0.4 mg capsule 0.4 mg PO BEDTIME@22 ropinirole 0.5 mg tablet 0.5 mg PO BEDTIME@22 Qty: 30 2RF trazodone 50 mg tablet 50 mg PO BEDTIME potassium chloride [K-Tab] 20 mEq tablet extended release 20 meq PO DIRECTED Qty: 30 3RF Rx Instructions: Take 20 meq for 3 days, and as needed nitroglycerin [Nitrostat] 0.4 mg Tablet, Sublingual 0.4 mg SUBLINGUAL Q5M PRN (Reason: Chest Pain) Rx Instructions: do not exceed 3 doses per episode insulin lispro [Humalog KwikPen Insulin] 100 unit/mL insulin pen 10 unit SUBCUT TID ranolazine 500 mg Tablet Extended Release 12 Hr 500 mg PO BID Qty: 60 0RF isosorbide mononitrate 60 mg tablet extended release 24 hr 60 mg PO DAILY insulin glargine [Lantus Solostar U-100 Insulin] 100 unit/mL (3 mL) insulin pen 30 unit SUBCUT QAM aspirin 81 mg Tablet,Delayed Release (Dr/Ec) 81 mg PO DAILY@07 Qty: 60 0RF ticagrelor [Brilinta] 90 mg tablet 90 mg PO BID@, Qty: 120 0RF bumetanide 2 mg tablet 2 mg PO DAILY Qty: 60 3RF atorvastatin 80 mg Tablet 80 mg PO BEDTIME docusate sodium 100 mg Capsule 100 mg PO BID calcium carbonate 500 mg calcium (1,250 mg) Tablet,Chewable 1,000 mg PO DAILY polyethylene glycol 3350 [Miralax] 17 gram powder in packet 17 g PO DAILY Qty: 30 6RF acetaminophen 325 mg Tablet 650 mg PO Q6H PRN (Reason: Mild/Mod Pain Or Temp >/= 101) Qty: 0 0RF alprazolam 0.25 mg tablet 0.25 mg PO BID levothyroxine 50 mcg tablet 50 mcg PO DAILY escitalopram oxalate 20 mg tablet 20 mg PO DAILY quetiapine 50 mg tablet extended release 24 hr 100 mg PO BEDTIME Discharge Orders: Discharge ED (Routine); Ordered 02/25/25 Ordered By: Rebel Dutton Referrals: Niko Jerez MD [Primary Care Provider, Internal Medicine] Patient Instructions: Chest Pain (ED), Patient Portal & [facility] Instructions Print Language: Persian Coding Level of Care Code ED Spring Tester for Romie Everett
[2025-02-25 17:49] LABS: Hematocrit 29.8 % (36-47); Hemoglobin 9.30 g/dL (11.27-16.99); Mean Corpuscular HGB Conc 31.2 g/dL (30-55); Mean Corpuscular Hemoglobin 26.0 pg (27-33); Mean Corpuscular Volume 83.2 fl (85-98); Nucleated Red Blood Cells % 0 %; Platelet Count 283 10^3/cmm (157-399); Red Blood Count 3.58 10^6/uL (3.85-5.65); White Blood Count 8.11 10^3/uL (3.29-11.43)
[2025-02-25 18:12] LABS: Troponin(5th) Baseline 138 ng/L (0-10)
[2025-02-25 18:19] LABS: Alanine Aminotransferase 8 U/L (0-33); Albumin Level 3.5 g/dL (3.5-5.2); Alkaline Phosphatase 128 U/L (35-105); Anion Gap 14.2 (5-19); Aspartate Amino Transferase 9 U/L (0-32); Blood Urea Nitrogen 35 mg/dL (8-23); Calcium 8.7 mg/dL (8.5-10.5); Carbon Dioxide 28 mmol/L (22-29); Chloride 100 mmol/L (98-107); Creatinine Clr Calc Pharmacy 47.0189; Globulin 3.1 g/dL (1.3-4.6); Glucose 284 mg/dL (65-115); NT Pro B Type Natriuretic Pept 2409 pg/mL (0-125); Osmolality Calculated 302 mOsm/kg (285-295); Potassium 5.2 mmol/L (3.5-5.1); Sodium 137 mmol/L (136-145); Total Protein 6.6 g/dL (6.6-8.7)
--- NOTE | 2025-02-25 19:13 | ECG_ITS ---
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 Measurements Intervals [place] Rate: 74 P: 39 VA: 168 QRS: 40 QRSD: 105 T: 70 QT: 406 QTc: 453 Interpretive Statements SINUS RHYTHM NONSPECIFIC T-WAVE ABNORMALITY Compared to ECG 02/25/2025 17:16:59 No significant changes Electronically Signed On 03-01-2025 09:46:47 CDT by Jaiden Newell M.D. [email or web address]
[2025-02-25 20:32] LABS: Troponin 5 2HR 132.9 ng/L (0-10); Troponin 5 2HR Delta -5.1 ABS# (0-10)
== END 2025-02-25 22:50 | disposition home or self-care (01) ==
PROVIDERS: Emergency Provider Family Medicine; PCP Internal Medicine
DX: R07.9 Chest pain, unspecified (principal); Z99.81 Dependence on supplemental oxygen; Z79.4 Long term (current) use of insulin; Z79.82 Long term (current) use of aspirin; I25.118 Atherosclerotic heart disease of native coronary artery with other forms of angina pectoris; E78.5 Hyperlipidemia, unspecified; Z86.73 Personal history of transient ischemic attack (TIA), and cerebral infarction without residual deficits; E11.22 Type 2 diabetes mellitus with diabetic chronic kidney disease; I13.0 Hypertensive heart and chronic kidney disease with heart failure and stage 1 through stage 4 chronic kidney disease, or unspecified chronic kidney disease; N18.9 Chronic kidney disease, unspecified; I50.9 Heart failure, unspecified
CPT/HCPCS: 36415; 71045; 80053; 83880; 84484; 85025; 93005; 99285; J9999

== ENCOUNTER 2025-04-07 12:50 | Outpatient (CLI) | payer MEDICARE, MEDICAID, SELFPAY ==
--- NOTE | 2025-04-07 12:54 | CTR_ITS ---
PROCEDURE INFORMATION: Exam: CT Neck With Contrast Exam date and time: 04/07/2025 1:32 PM Age: 64 years old Clinical indication: Other: Hoarseness; Additional info: Paralysis of vocal cords larynx, unilateral TECHNIQUE: Imaging protocol: Computed tomography of the neck with contrast. Radiation optimization: All CT scans at this facility use at least one of these dose optimization techniques: automated exposure control; mA and/or kV adjustment per patient size (includes targeted exams where dose is matched to clinical indication); or iterative reconstruction. Contrast material: OMNI 350; Contrast volume: 75 ml; Contrast route: INTRAVENOUS (IV); COMPARISON: MR cervical spin wo con* [id number] 02/29/2024 8:24 AM RADIATION DOSE METRICS: Total DLP (mGy-cm): 264.7 FINDINGS: Salivary glands: Normal. Glands are normal in size. Pharynx: Unremarkable. No significant tonsillar enlargement. Larynx: Unremarkable. Epiglottis is normal. Thyroid: The left lobe appears absent. No enlarged or calcified nodules. Trachea: Visualized trachea is unremarkable. Lungs: Unremarkable as visualized. Lymph nodes: Unremarkable. No lymphadenopathy. Bones/joints: Unremarkable. No acute fracture. Soft tissues: Unremarkable. No significant soft tissue swelling. CT/CT neck w con* [id number] IMPRESSION: No acute findings.
--- NOTE | 2025-04-07 12:54 | CTR_ITS ---
PROCEDURE INFORMATION: Exam: CT Chest With Contrast; Diagnostic Exam date and time: 04/07/2025 1:27 PM Age: 64 years old Clinical indication: Other: Hoarseness; Additional info: Paralysis of vocal cords larynx, unilateral TECHNIQUE: Imaging protocol: Diagnostic computed tomography of the chest with contrast. Radiation optimization: All CT scans at this facility use at least one of these dose optimization techniques: automated exposure control; mA and/or kV adjustment per patient size (includes targeted exams where dose is matched to clinical indication); or iterative reconstruction. Contrast material: OMNI 350; Contrast volume: 75 ml; Contrast route: INTRAVENOUS (IV); COMPARISON: CT chest wo con [id number] 07/23/2024 2:18 PM RADIATION DOSE METRICS: Total DLP (mGy-cm): 611.99 FINDINGS: Lungs: Mild centrilobular emphysema. Pleural spaces: Unremarkable. No pneumothorax. No pleural effusion. Heart: Unremarkable. No cardiomegaly. No pericardial effusion. Coronary arteries: Coronary artery calcifications. Lymph nodes: Calcified central lymph nodes. Vasculature: Unremarkable. No aortic aneurysm. Liver: Hepatic steatosis. Bones/joints: Unremarkable. No acute fracture. Soft tissues: Unremarkable. Other findings: Large calcified granuloma on the left. CT/CT chest w con* [id number] IMPRESSION: No acute intrathoracic pathology. COMMENTS: The presence of pulmonary emphysema on CT is an independent risk factor for lung cancer. In the absence of a history or active diagnosis of lung cancer, it is recommended that this patient with emphysema be evaluated for enrollment in a low dose CT lung cancer screening program.
[2025-04-07] MEDS: iohexol 350 mg/mL 500 mL Btl (per mL) IV ×2 (14:01→14:02)
== END 2025-04-07 12:51 | disposition home or self-care (01) ==
LOC: RAD 12:51
PROVIDERS: PCP Internal Medicine; Visit Provider Otolaryngology
DX: J38.01 Paralysis of vocal cords and larynx, unilateral (principal)
CPT/HCPCS: 70491; 71260

== ENCOUNTER 2025-04-30 08:18 | Outpatient (CLI) | payer MEDICARE, MEDICAID, SELFPAY ==
--- NOTE | 2025-04-30 08:25 | MM_ITS ---
WS: [id number] BILATERAL SCREENING DIGITAL TOMOSYNTHESIS MAMMOGRAM WITH CAD HISTORY: SCREENING COMPARISON: 03/07/2024, 07/24/2020 and 10/24/2022 Bilateral CC and MLO views with tomosynthesis and synthetic mammography submitted. Computer aided detection analyzed. Breast composition: There are scattered areas of fibroglandular density. No suspicious masses, microcalcifications or architectural distortion. Numerous calcifications and arterial calcifications in each breast. MM/MM scr tomosynthesis [id number] IMPRESSION: BI-RADS: 2 - Benign. FOLLOW UP: 1 Year Follow-up
== END 2025-04-30 08:19 | disposition home or self-care (01) ==
LOC: RAD 08:19
PROVIDERS: PCP Internal Medicine; Visit Provider Internal Medicine
DX: Z12.31 Encounter for screening mammogram for malignant neoplasm of breast (principal); R92.323 Mammographic fibroglandular density, bilateral breasts; R92.1 Mammographic calcification found on diagnostic imaging of breast
CPT/HCPCS: 77063; 77067